=== PATIENT | male | born 1975 | race Caucasian/White ===

== ENCOUNTER 2018-08-04 11:25 | Emergency (ER) | payer BC, SELFPAY ==
[2018-08-04 11:26] VITALS: BP 148/86; PULSE 89; RESP 18; TEMP 36.6; O2SAT 98; BMI 42.7
--- NOTE | 2018-08-04 11:56 | CT_ITS ---
STUDY: CT ABDOMEN AND PELVIS WITHOUT CONTRAST REASON FOR EXAM: Male, 42 years old. Right flank pain x 5 days, fever, hematuria. Hx hypertension.. RADIATION DOSAGE (If Supplied By Facility): CTDIvol = ( 24.18 ) mGy, DLP = ( 1389.41 ) mGycm TECHNIQUE: Transaxial images were obtained from the dome of the diaphragm to the symphysis pubis without oral contrast, and without intravenous contrast. Sagittal and coronal images were reconstructed. Individualized dose optimization techniques were used for this CT. COMPARISON: None. FINDINGS: The visualized lung bases are unremarkable. The visualized portions of the heart are within normal limits. There is decreased attenuation of the liver consistent with steatosis. Normal gallbladder and extrahepatic biliary system. Normal spleen. Normal pancreas. Normal bilateral adrenal glands. The right kidney demonstrates the presence of 8 mm hypodensity at the superior pole (axial image #61 series 2) Normal left kidney. Normal visualized stomach. Normal small intestine. Normal colon. The appendix is visualized and appears normal. Normal abdominal aorta. Normal inferior vena cava. Normal retroperitoneum. Normal urinary bladder. Normal abdominal wall. There are diffuse degenerative changes of the visualized lumbar spine. CT/Abdomen/Pelvis without Cont IMPRESSION: No hydronephrosis or urolithiasis. 8 mm hyperdense right renal lesion. Further evaluation with MRI can be obtained. Electronically Signed: Sun Bird MD at 13:41 EST Tel , Service support ,
--- NOTE | 2018-08-04 11:57 | ED.DCSUM_ITS ---
- ER Visit Summary Date of Service: 08/04/18 Chief Complaint: [] Right flank pain for about 4 days History of Present Illness: The patient is a 42 M [] seen in urgent care for the above today, found to have hematuria, was sent to the emergency room, no trauma no difficulty with urinary or bowel habits no history of kidney stone no head neck chest or abdominal pain no other complaints Physical Examination: [] 140/90 General, no distress resting comfortably HEENT is generally unremarkable The neck is supple no adenopathy Cardiovascular, regular rate and rhythm Lungs, clear bilateral Abdomen, soft nontender he has a vague pain to the right CVA area the abdomen is [place]ley soft and nontender Extremities, no clubbing cyanosis or edema Neurologic, awake alert answering questions appropriately moving all 4 extremities Test Results: [] Emergency Department Course and Treatment: [] The above screening labs IV fluids CT, screening labs are all generally unremarkable, there is some microscopic hematuria on the UA, the CT scan shows an 8 mm hypodensity in the superior pole of the right kidney no obstruction no hydro-recommend MRI for further delineation Explained this finding to the family and the long differential which would certainly include a malignancy versus other causes and the need for close outpatient follow-up for the MRI, he is referred to his outpatient providers and also to [facility] he will return for change in symptoms Treatment Plan: [] Disposition: [] Home stable Impression: [] Right flank pain hematuria nonspecific 8 mm lesion superior pole right kidney see CTs report This note was generated with [employer] dictation software. It may contain incorrect words, spelling, and punctuation that were not noted in review of the chart prior to signing ED Disposition - Plan for ED Patient: Chief Complaint: Back Referrals: [facility] Doctor,Out of [NON-STAFF] -
[2018-08-04 12:01] LABS: Red Blood Cells-Urine 0 SEEN /hpf (0-5); Squamous Epithelial Cells - UA 0 SEEN /hpf (0-5); White Blood Cells 0 SEEN /hpf (0-5)
[2018-08-04] MEDS: Ketorolac 30 MG/ML Syringe IV (12:02)
[2018-08-04 12:03] LABS: Color, Urine Yellow (Yellow); Glucose, Dipstick Normal (Normal); Ketone-Dipstick Negative (Negative); Leukocyte Esterase-Dipstick Negative /ul (Negative); Nitrite-Dipstick Negative (Negative); Occult Blood-Urine 10 /ul (Negative); Protein-Dipstick Negative (Negative); Specific Gravity, Urine 1.025 (1.002-1.030); Urine Bilirubin Dipstick Negative (Negative); Urine Clarity Sl. Cloudy (Clear); Urine Urobilinogen Normal (Normal)
[2018-08-04] MEDS: 0.9% Normal Saline 1,000 ML 250 ML IV (12:03)
[2018-08-04 12:11] LABS: Bacteria RARE /hpf (None Seen); Mucous, Urine 1+ /hpf (<or=2+)
[2018-08-04 12:16] LABS: Absolute Neutrophil Count 3.3 X10^3/uL (2.0-7.7); Basophil# 0.04 X10^3/uL; Basophil% 0.6 % (0-1); Eosinophil# 0.22 X10^3/uL; Eosinophils% 3.5 % (0-5); Hematocrit 42.9 % (40-54); Hemoglobin 14.4 g/dl (13.0-16.5); Lymphocyte % 37.7 % (19-41); Mean Corp Hgb Conc 33.6 g/gl (32-36); Mean Corpuscular Hgb 28.7 pg (27.0-32.0); Mean Corpuscular Volume 85.5 fL (80-94); Mean Platelet Vol. 9.5 fl (6.2-12.0); Monocyte# 0.41 X10^3/uL; Monocyte% 6.4 % (0-10); Neutrophil # 3.28 X10^3/uL (2.7-7.7); Neutrophil % 51.6 % (47-70); Platelet Count 198 K/mm3 (150-450); RBC Distribution Width CV 12.7 % (11.6-14.6); RBC Distribution Width SD 39.6 fl (35.1-43.9); Red Blood Count 5.02 M/mm3 (4.6-6.2); White Blood Count 6.4 K/mm3 (4.4-11.0)
[2018-08-04 12:17] LABS: POSITIVE COUNT NO; POSITIVE DIFFERENTIAL NO; POSITIVE MORPHOLOGY NO
[2018-08-04 12:28] LABS: Anion Gap 8 (5-15); BUN 16 mg/dL (7-18); BUN/Creat Ratio 16.7 RATIO (10-20); Calcium,Total 8.7 mg/dL (8.5-10.1); Chloride 106 mmol/L (98-107); Creatinine, Serum 0.96 mg/dL (0.70-1.30); EST Glomerular Filtration Rate 91 mL/min (>60); Est Glom Filt Rate - Afr Amer 110 mL/min (>60); Estimated Creatinine Clearance 102.45 ml/min; Glucose 91 mg/dL (74-106); Potassium 3.8 mmol/L (3.5-5.1); Sodium Level 141 mmol/L (136-145)
[2018-08-04 13:25] VITALS: BP 122/73; PULSE 83; RESP 16; O2SAT 100
--- NOTE | 2018-08-04 14:27 | ED.DEP ---
ED Disposition - Plan for ED Patient: Chief Complaint: Back Instructions: ED Flank Pain Uncertain Cause Prescriptions: Hydrocodone Bitart/Apap 5-325 [[place] 5MG-325MG] 1 tab PO Q4H PRN PRN 2 Days #10 tab PRN Reason: Pain Naproxen [Naprosyn] 500 mg PO BID PRN #20 tab Referrals: [facility],Out of [NON-STAFF] - Severo Stanton MD [STAFF PHYSICIAN] - Additional Instructions: Follow-up with all of your outpatient providers and [facility] return for change in symptoms
[2018-08-04 14:40] VITALS: BP 122/73; PULSE 83; RESP 16; O2SAT 100
== END 2018-08-04 14:41 | disposition home or self-care (01) ==
LOC: ED 12:22
PROVIDERS: Emergency Provider Emergency Medicine; Family Provider Family Medicine; PCP Family Medicine
DX: R31.9 Hematuria, unspecified (principal); R10.9 Unspecified abdominal pain; N28.89 Other specified disorders of kidney and ureter; Z79.899 Other long term (current) drug therapy
CPT/HCPCS: 74176; 80048; 81001; 85025; 96361; 96374; 99283; J7030

== ENCOUNTER → 2019-01-25 | Outpatient (CLI) | payer BC, SELFPAY ==
--- NOTE | 2019-01-25 08:07 | US_ITS ---
STUDY: RENAL ULTRASOUND - COMPLETE REASON FOR EXAM: Male, 43 years old. Follow-up 8 mm hyperdense lesion at the upper pole of the right kidney on CT. History of right flank pain, fever, hematuria. TECHNIQUE: Ultrasound evaluation of the kidneys was performed with real-time and static luis-scale imaging. COMPARISON: None. FINDINGS: Incidental note of borderline to mild splenomegaly, measuring 13.4 cm in length. RIGHT KIDNEY: Normal location of the right kidney, which is normal in size. The right kidney measures 13.2 x 6.5 x 7.4 cm. There is a normal cortex of the right kidney. The renal cortex measures 2.6 cm. There is a 1.3 x 1.1 x 1.0 cm hypoechoic cortical cyst at the lateral upper pole, correlating in location with the hyperdense lesion seen on CT. A second 1.6 x 1.5 x 1.2 cm hypoechoic structure is seen at the superior margin of the renal sinus fat, possibly a second cyst. There are no right renal calculi. There is no right hydronephrosis. DISTAL RIGHT URETER: There is non-visualization of the distal right ureter. There is no demonstrated right ureterovesical junction calculus. There is a visualized right ureteral jet. LEFT KIDNEY: Normal location of the left kidney, which is normal in size. The left kidney measures 13.8 x 5.5 x 6.4 cm. There is a normal cortex of the left kidney. The renal cortex measures 2.3 cm. There is no left renal mass or cyst. There are no left renal calculi. There is no left hydronephrosis. DISTAL LEFT URETER: There is non-visualization of the distal left ureter. There is no demonstrated left ureterovesical junction calculus. There is a visualized left ureteral jet. BLADDER: The distended urinary bladder has a volume of 96 ml. There is a normal 3 mm wall thickness of the distended urinary bladder. There is no demonstrated mass within the urinary bladder. There are no demonstrated bladder calculi. US/Kidney and Bladder IMPRESSION: 1. 2 cysts seen in the upper pole of the right kidney, the smaller cortical cysts corresponding to the hyperdense lesion seen on CT. This likely contains some proteinaceous material or hemorrhage. No right hydronephrosis. 2. Normal ultrasound of the left kidney and urinary bladder. 3. Borderline to mild splenomegaly. Electronically Signed: Jayy Rodríguez MD at 13:51 EDT , Service support ,
== END | disposition home or self-care (01) ==
LOC: US 08:00
PROVIDERS: Family Provider Family Medicine; PCP Family Medicine; Referring Provider Urology; Visit Provider Urology
DX: C64.9 Malignant neoplasm of unspecified kidney, except renal pelvis (principal)
CPT/HCPCS: 76770

== ENCOUNTER 2019-03-07 04:52 | Emergency (ER) | payer BC, SELFPAY ==
[2019-03-07 04:53] VITALS: BP 145/94; PULSE 99; RESP 19; TEMP 36.8; O2SAT 95; BMI 43.4
--- NOTE | 2019-03-07 05:04 | RAD_ITS ---
STUDY: X-RAY - LEFT HAND REASON FOR EXAM: Male, 43 years old. Injured hand playing baseball on 03/06. Pain in the first metacarpal. TECHNIQUE: view(s) of the hand. COMPARISON: None. FINDINGS: Normal radiocarpal articulation. Normal distal radioulnar joint. Normal visualized carpal bones. Normal carpal articulations Normal carpometacarpal articulation of the thumb. Normal second through fifth carpometacarpal joints. There is an old healed fourth metacarpal shaft fracture. Normal metacarpophalangeal joint of the thumb. Normal interphalangeal joint of the thumb. Normal proximal and distal phalanges of the thumb. Normal metacarpophalangeal joints of the second through fifth fingers. There is degenerative arthrosis of the distal interphalangeal joints of the third and fifth finger. Otherwise normal proximal and distal interphalangeal joints of the second through fifth fingers. Normal phalanges of the second through fifth fingers. The soft tissue structures are unremarkable. RAD/Hand Min 3 Views IMPRESSION: Old healed fifth metacarpal fracture. Mild degenerative changes, as above. No demonstrated acute fracture, dislocation, or destructive osseous lesion. Electronically Signed: Abelardo Larios MD at 5:41 EDT , Service support ,
--- NOTE | 2019-03-07 05:06 | ED.VIS.GEN ---
History of Present Illness Chief Complaint: Upper Extremity Injury Informant: Patient Onset: Yesterday Narrative: [id number] male presents left hand injury yesterday while playing softball in the evening. States slid to second base, caught his feet came over landing on his left hand. Able to go to work, however left work came here for evaluation. No medication taken. States that left hand fracture nonsurgically repaired in the past. No history of gastric ulcers or kidney injury. No paresthesias. Wanted to rule out fracture. Prior similar symptoms: No Past Medical History - Allergies and Home Meds Allergies/Adverse Reactions: Allergies No Known Allergies Allergy (Verified 08/04/18 11:29) Primary Care Physician: Rayshawn Adhikari [Primary Care Provider] - Smoking Status: Never smoker Review of Systems All systems negative except as indicated Gastrointestinal: Denies: Nausea, Vomiting Musculoskeletal: Reports: Arthralgias Neurological: Denies: Parasthesia Physical Exam Vital Signs/Narrative: Vital Signs Temp Pulse Resp BP Pulse Ox 03/07/19 04:53 98.3 F 99 19 H 145/94 H 95 Inital Vital Signs reviewed: Yes General: Well nourished, Well developed, No Acute Distress Head: Normocephalic, Atraumatic Eyes: Perrl, EOMI ENT: Moist mucous membranes, No rhinorrhea Neck: Supple, Nontender Cardiovascular: Regular rate, Regular rhythm, No murmurs Respiratory: No distress, CTA bilaterally, Chest nontender Abdomen: Soft, Nontender, Nondistended, Normal bowel sounds Back: Nontender, Normal Inspection Extremities: No edema, - - Left upper extremity: No elbow or wrist pain. There is tender palpation base of palmar aspect of left hand small ecchymosis region. Negative varus and valgus of the thumb. Skin intact. Neurovascular intact. No deformities. Skin: Normal color, No rash Neurological: Alert, Oriented x3, Cranial nerves II-XII grossly intact, Normal Strength, Normal Sensation Psychological: Normal affect, Normal Mood Diagnostic/Tx/Re-eval Clinical Impression(s) from Imaging Studies Hand X-Ray 03/07/19 05:04 IMPRESSION: Old healed fifth metacarpal fracture. Mild degenerative changes, as above. No demonstrated acute fracture, dislocation, or destructive osseous lesion. Electronically Signed: Abelardo Larios MD at 5:41 EDT , Service support , - Medical Decision Making Patient declined any medications. Ice was placed. X-ray negative. Exam concerns for hand contusion. Wrist splint provided. He will use Tylenol Motrin as needed. Follow-up as an outpatient. ED Disposition - Plan for ED Patient: Disposition: Home or Assisted Living Diagnosis: Contusion of left hand Instructions: CONTUSION, Upper Extremity Referrals: Rayshawn Adhikari [Primary Care Provider] - 5-7 Days
[2019-03-07 06:24] VITALS: PULSE 79; RESP 19; O2SAT 98
== END 2019-03-07 06:25 | disposition home or self-care (01) ==
PROVIDERS: Emergency Provider Emergency Medicine; Family Provider Family Medicine; PCP Family Medicine
DX: S60.222A Contusion of left hand, initial encounter (principal); W18.30XA Fall on same level, unspecified, initial encounter; Y93.64 Activity, baseball; Y92.320 Baseball field as the place of occurrence of the external cause; Y99.8 Other external cause status
CPT/HCPCS: 73130; 99283

== ENCOUNTER → 2019-05-23 | Outpatient (CLI) | payer BC, SELFPAY ==
[2019-05-23 16:31] LABS: Anion Gap 10 (5-15); BUN 16 mg/dL (7-18); BUN/Creat Ratio 17.7 RATIO (10-20); Calcium,Total 8.8 mg/dL (8.5-10.1); Chloride 106 mmol/L (98-107); EST Glomerular Filtration Rate 97 mL/min (>60); Est Glom Filt Rate - Afr Amer 117 mL/min (>60); Glucose 95 mg/dL (74-106); Sodium Level 142 mmol/L (136-145)
== END | disposition home or self-care (01) ==
LOC: LAB 15:36
PROVIDERS: Family Provider Family Medicine; PCP Family Medicine; Referring Provider Orthopaedic Surgery; Visit Provider Orthopaedic Surgery
DX: I10 Essential (primary) hypertension (principal)
CPT/HCPCS: 36415; 80048

== ENCOUNTER → 2021-03-26 08:33 | Outpatient (CLI) | payer BC, SELFPAY ==
[2021-03-26 09:25] LABS: Absolute Lymphocyte Count 1.91 X10^3/uL (0.83-4.51); Absolute Neutrophil Count 3.5 X10^3/uL (2.0-7.7); Basophil# 0.05 X10^3/uL; Basophil% 0.8 % (0-1); Eosinophil# 0.27 X10^3/uL; Eosinophils% 4.3 % (0-5); Hematocrit 45.4 % (40-54); Hemoglobin 15.1 g/dL (13.0-16.5); Lymphocyte # 1.91 X10^3/ul (0.83-4.51); Lymphocyte % 30.7 % (19-41); Mean Corp Hgb Conc 33.3 g/dL (32-36); Mean Corpuscular Hgb 28.5 pg (27.0-32.0); Mean Corpuscular Volume 85.8 fL (80-94); Mean Platelet Vol. 10.1 fl (6.2-12.0); Monocyte# 0.44 X10^3/uL; Monocyte% 7.1 % (0-10); NRBC Flagged by Analyzer 0 % (0-5); Neutrophil # 3.53 X10^3/uL (2.7-7.7); Neutrophil % 56.8 % (47-70); Platelet Count 233 K/mm3 (150-450); RBC Distribution Width CV 12.4 % (11.6-14.6); RBC Distribution Width SD 38.7 fl (35.1-43.9); Red Blood Count 5.29 M/mm3 (4.6-6.2); White Blood Count 6.2 K/mm3 (4.4-11.0)
[2021-03-29 16:07] LABS: Ash, White <0.10 kU/L (Class 0); Aspergillus fumigatus <0.10 kU/L (Class 0); Bermuda Grass <0.10 kU/L (Class 0); Birch 1.09 kU/L (Class II); Black Walnut 0.22 kU/L (Class 0/I); Cat Hair / Dander,Stand 0.19 kU/L (Class 0/I); Cedar, Mountain <0.10 kU/L (Class 0); Cladosporium herbarum <0.10 kU/L (Class 0); Cockroach, American 0.11 kU/L (Class 0/I); Cottonwood <0.10 kU/L (Class 0); D farinae Mite <0.10 kU/L (Class 0); D pteronyssinus 0.11 kU/L (Class 0/I); Dog Epithelia 0.82 kU/L (Class II); Elm, American White <0.10 kU/L (Class 0); Immunoglobulin E 74 IU/mL (6-495); Maple/Box Elder 0.36 kU/L (Class I); Mulberry, White <0.10 kU/L (Class 0); Oak, White <0.10 kU/L (Class 0); Pecan <0.10 kU/L (Class 0); Penicillium Notatum <0.10 kU/L (Class 0); Pigweed, Rough <0.10 kU/L (Class 0); Russian Thistle <0.10 kU/L (Class 0); Sheep Sorrel <0.10 kU/L (Class 0); Sycamore, American <0.10 kU/L (Class 0); Timothy Grass 1.68 kU/L (Class III)
[2021-03-29 16:13] LABS: Mouse Urine <0.10 kU/L (Class 0)
[2021-03-30 20:07] LABS: Aspirgillus flavus Negative (Neg:<1:1); Aspirgillus fumigatus Negative (Neg:<1:1); Aspirgillus niger Negative (Neg:<1:1); Cytoplasmic Ab (C-ANCA) <1:20 titer (Neg:<1:20)
[2021-03-30 23:16] LABS: Immunoglobulin E 80 IU/mL (6-495); Perinuclear Ab (P-ANCA) <1:20 titer (Neg:<1:20)
== END ==
PROVIDERS: PCP Family Medicine; Referring Provider Internal Medicine Critical Care Medicine; Visit Provider Internal Medicine Critical Care Medicine
DX: J40 Bronchitis, not specified as acute or chronic (principal)
CPT/HCPCS: 36415; 82785; 85025; 86003; 86256; 86606

== ENCOUNTER → 2021-04-02 06:58 | Outpatient (CLI) | payer BC, SELFPAY ==
--- NOTE | 2021-04-03 10:14 | PFT ---
INTRODUCTION: The patient is a 45-year-old male that presents for pulmonary function studies secondary to a diagnosis of bronchitis. Respiratory therapy reported good patient effort. Bronchodilators were used during testing. INTERPRETATION: Forced expiration spirometry demonstrates no evidence of a large airways obstructive ventilatory defect. There was a significant response to aerosolized bronchodilators noted. Spirograms are of good quality and plateau normally. Body plethysmography was performed and reveals a decreased TLC to 5.46 L, 82% of predicted, indicative of a mild restrictive ventilatory impairment. Diffusing capacity by single breath CO is within normal limits. IMPRESSION: Mild restrictive ventilatory impairment along with stigmata of small airway disease and significant bronchodilator response.
== END ==
PROVIDERS: PCP Family Medicine; Referring Provider Internal Medicine Critical Care Medicine; Visit Provider Internal Medicine Critical Care Medicine
DX: J40 Bronchitis, not specified as acute or chronic (principal)
CPT/HCPCS: 94060; 94726; 94729

== ENCOUNTER 2021-05-05 03:55 | Emergency (ER) | payer BC, SELFPAY ==
[2021-05-05 03:56] VITALS: PULSE 119; RESP 26; TEMP 37.4; O2SAT 94; BMI 43.4
[2021-05-05 04:00] VITALS: BP 150/76; PULSE 119; RESP 26; TEMP 37.4; O2SAT 92; O2SAT 94
--- NOTE | 2021-05-05 04:13 | CT_ITS ---
STUDY: CTA CHEST REASON FOR EXAM: Male, 45 years old. hypoxia. Covid, shortness of breath since Monday, fever, chills, cough, history of hypertension RADIATION DOSAGE (If Supplied By Facility): CTDIvol = ( 24.54 ) mGy, DLP = ( 604.76 ) mGycm TECHNIQUE: The examination was performed with the intravenous administration of IV 100mL Isovue-370. Post-processing of the angiographic images was performed, with multiplanar reformation and 3D reconstruction. There is image blurring as a result of cardiac and respiratory motion. Diagnostic accuracy is somewhat reduced. However, there is substantial diagnostic information remaining available on this study. Individualized dose optimization techniques were used for this CT. COMPARISON: CT abdomen pelvis 08/04/2018 FINDINGS: Normal enhancement of the main pulmonary artery and central right and left pulmonary arteries. Very limited enhancement of the bilateral peripheral pulmonary arteries particularly in the right greater than left lung bases. Normal thoracic aorta and visualized great vessels. There is a bovine arch as a vascular variant. There is no demonstrated aortic dissection. Normal heart and pericardium. Normal mediastinum. Normal hilar regions. Normal visualized trachea and bronchi. The lungs are well expanded. Compression of the dependent lung parenchyma. Mild hazy airspace opacification in the bilateral lower lobes right greater than left significantly exaggerated by motion. Component of mild atelectasis in the lingula suspected. Normal pleura. Normal chest wall structures. There are degenerative changes of thoracic spine and mild dextroscoliosis. Bilateral perirenal stranding possible trace fluid along the imaged upper poles. Incompletely imaged spleen appears enlarged measuring greater than [address]/CTA Chest W/WO Contrast IMPRESSION: No demonstrated central and proximal pulmonary embolism mi aneurysm, leak or arterial dissection. The peripheral pulmonary arterial assessment particularly in the right base is extremely limited. Motion degradation through the lung bases with cardiac activity and compression of parenchyma right greater than left base may obscure infectious or inflammatory process such as an infiltrate. Bilateral perirenal stranding possible trace fluid, seen to similar degree on previous CT. Mild splenomegaly. Electronically Signed: Conchita Lange MD at 5:39 EDT , Service support ,
--- NOTE | 2021-05-05 04:13 | EKG12_ITS ---
Test Reason : DYSRHYTHMIA Blood Pressure : / mmHG Vent. Rate : 114 BPM Atrial Rate : 114 BPM P-R Int : 132 ms QRS Dur : 100 ms QT Int : 340 ms P-R-T Axes : 031 022 084 degrees QTc Int : 468 ms Sinus tachycardia Otherwise normal ECG Confirmed by CELESTINO DC, MAXIMO ([id number]), commercial production editor MATTHIEU CERDA ([id number]) on 05/11/2021 6:29:39 AM Referred By: ROBERT Confirmed By:MAXIMO TIRADO MD
--- NOTE | 2021-05-05 04:15 | EX.ED.DYSGE1 ---
HPI History of Present Illness Chief Complaint: Shortness of Breath Narrative Narrative: Patient is a 45-year-old male who presents with complaints of subjective fevers and chills with congestion cough fatigue and shortness of breath. He states he is had the symptoms for approximately 6 to 7 days. He reports he went to an outpatient facility and was tested and is positive for COVID. He reports that as time is past his sensation of shortness of breath is worsened to the point where he cannot walk without feeling extreme shortness of breath. He also reports he is notice persistent chest discomfort associated with this. He states that his symptoms are worsening he is concerned that he will need oxygen and therefore comes in for evaluation [facility] Medical History Carpal tunnel syndrome Fatty liver Hypertension CARMEL (obstructive sleep apnea) Home Medications lisinopril 40 mg PO DAILY 08/04/18 [History Last Taken Unknown] loratadine-pseudoephedrine 1 ea PO DAILY 03/07/19 [History Last Taken Unknown] fluticasone propionate 50 mcg/actuation nasal spray,suspension 1 spray INTRANASAL DAILY 03/19/21 [History Last Taken Unknown] meloxicam 15 mg tablet 15 mg PO DAILY 03/19/21 [History Last Taken Unknown] albuterol sulfate [Ventolin HFA] 2 puff INHALATION Q4H PRN PRN 05/05/21 [History Last Taken Unknown] dexamethasone [Decadron] 6 mg PO DAILY #10 tab 05/05/21 [Rx Last Taken Unknown] promethazine-codeine 5 ml PO Q6H PRN 7 Days #140 ml 05/05/21 [Rx Last Taken Unknown] Allergy/AdvReac Type Severity Reaction Status Date / Time No Known Allergies Allergy Verified 03/26/21 07:48 Surgical History (Updated 05/05/21 @ 04:01 by Lianna Stern) H/O rhinoplasty Social History Smoking Status: Never smoker ROS ROS ED Constitutional Constitutional ED: Reports fever(s) and subjective; Denies chills ENT ENT ED: Reports rhinorrhea and sore throat Cardiovascular Cardiovascular: Reports chest pain Respiratory/Chest Respiratory/Chest: Reports cough and dyspnea Gastrointestinal Gastrointestinal: Denies abdominal pain, diarrhea, nausea or vomiting Genitourinary Genitourinary ED: Denies dysuria Musculoskeletal Musculoskeletal: Reports myalgias Integumentary Denies rash Neurologic Neurologic: Denies headache(s) Hematologic/Lymphatic Hematologic/Lymphatic: Denies easy bleeding or easy bruising EXAM Physical Exam Const Vital Signs: 05/05/21 03:56 05/05/21 04:00 Temperature 99.3 F H 99.3 F H Temperature Source Temporal Temporal Pulse Rate 119 H 119 H Respiratory Rate 26 H 26 H Respiratory Effort Short of Breath Respiratory Depth Shallow Respiratory Pattern Tachypnea Blood Pressure 150/76 H Blood Pressure Mean 100 Pulse Ox 94 94 Oxygen Delivery Method Room Air Room Air Positive well nourished and well developed General Appearance ED: well developed HEENT Reports moist mucous membranes HEENT Narrative: [place] in the posterior pharynx consistent with sinus drainage but no airway edema or compromise. Eyes PERRL and EOMs intact bilaterally Neck supple and no JVD Neck Narrative: Positive anterior cervical lymphadenopathy Resp Resp Narrative: Patient is in mild to moderate respiratory distress with tachypnea and accessory muscle use. Breath sounds are diminished throughout with rhonchi in the bilateral basis greatest on the right. Cardio regular rhythm Rate: other Other Details: Tachycardic rate with regular rhythm. Radial pulses are +2/4 bilaterally there equal and symmetric GI normal to inspection, nondistended, normoactive bowel sounds, non-tender and non-distended Auscultation: normoactive bowel sounds Palpation: soft Extremity normal to inspection Extremity Narrative: No asymmetric edema. There is trace pitting edema to the bilateral lower extremities but negative home and sign. Neuro oriented x3 and CN's II-XII intact bilaterally Sensorium / Orientation: alert Psych mental status grossly normal Skin no rashes or lesions noted MDM MDM MDM Narrative Medical decision making narrative: Patient presented to the ER afebrile but was tachycardic and hypoxic down to 87% on room air at rest. With his known COVID diagnosis and hypoxia as well as tachycardia there is concern for COVID pneumonia or pulmonary embolus as a cause of his worsening symptoms. Therefore basic laboratory workup along with CTA were ordered. Labs revealed no clinically significant findings and CTA show changes consistent with mild COVID pneumonia but no PE. The patient was able to set between 92 and 94% on 3 L nasal cannula oxygen. Therefore this time I feel he would be a good candidate for home oxygen. Therefore this will be set up for him he'll be placed on Decadron as well as given albuterol inhaler and Phenergan with codeine for symptom control. However at this time as the only reason for admission would be need for oxygen and he can get this set up there is no need for placement and he is safe for discharge Lab Data Attestation: I reviewed the patient's lab results. Labs: Laboratory Results - last 24 hr 05/05/21 05/05/21 05/05/21 04:25 04:25 04:25 WBC 4.1 L RBC 4.99 Hgb 14.3 Hct 42.5 MCV 85.2 MCH 28.7 MCHC 33.6 RDW Std Deviation 39.6 RDW Coeff of Gamal 12.8 Plt Count 160 MPV 9.8 Immature Gran % (Auto) 0.200 Neut % (Auto) 72.2 H Lymph % (Auto) 15.3 L Anderson % (Auto) 10.4 H Eos % (Auto) 1.7 Baso % (Auto) 0.2 Absolute Neuts (auto) 2.9 Absolute Lymphs (auto) 0.62 L Nucleated RBC % 0 PT 13.0 INR 1.0 APTT 30.3 Sodium 140 Potassium 4.1 Chloride 106 Carbon Dioxide 27.0 Anion Gap 7 BUN 18 Creatinine 1.03 Estim Creat Clear Calc 89.61 Est GFR (MDRD) Af Amer 100 Est GFR (MDRD) Non-Af 83 BUN/Creatinine Ratio 17.5 Glucose 125 H Calcium 8.5 Magnesium 1.8 Troponin I High Sens 34 Radiography Diagnostic Testing: Clinical Impression(s) from Imaging Studies Chest CTA 05/05/21 04:13 IMPRESSION: No demonstrated central and proximal pulmonary embolism mi aneurysm, leak or arterial dissection. The peripheral pulmonary arterial assessment particularly in the right base is extremely limited. Motion degradation through the lung bases with cardiac activity and compression of parenchyma right greater than left base may obscure infectious or inflammatory process such as an infiltrate. Bilateral perirenal stranding possible trace fluid, seen to similar degree on previous CT. Mild splenomegaly. Electronically Signed: Conchita Lange MD at 5:39 EDT , Service support , Discharge Plan Triage Chief Complaint: Shortness of Breath ED Provider: Aureliano Samayoa Dx/Rx/DC Orders Clinical Impression: Pneumonia due to 2019 novel coronavirus Instructions: Coronavirus Disease 2019 (COVID-19): Caring for Yourself or Others Prescriptions: New dexamethasone [Decadron] 6 mg tablet 6 mg PO DAILY Qty: 10 RF: 0 promethazine-codeine 6.25-10 mg/5 mL syrup 5 ml PO Q6H PRN (Reason: cough) 7 Days Qty: 140 RF: 0 No Action meloxicam 15 mg tablet 15 mg PO DAILY RF: 0 fluticasone propionate [Flonase Allergy Relief] 50 mcg/actuation spray,suspension 1 spray intranasal DAILY RF: 0 lisinopril 40 MG tablet 40 mg PO DAILY RF: 0 loratadine-pseudoephedrine 1 EACH tablet extended release 12 hr 1 ea PO DAILY RF: 0 albuterol sulfate [Ventolin HFA] 90 mcg/actuation HFA aerosol inhaler 2 puff INHALATION Q4H PRN PRN (Reason: SOB/WHEEZING) RF: 0 Primary Care Provider: Rayshawn Adhikari Referrals: Rayshawn Adhikari MD [Primary Care Provider] - Disposition Disposition: Home, Self Care
[2021-05-05] MEDS: dexAMETHasone 10 MG/ML Vial IV (04:26)
[2021-05-05] MEDS: 0.9% Normal Saline 1,000 ML 999 ML IV (04:26)
[2021-05-05 04:37] LABS: Absolute Lymphocyte Count 0.62 X10^3/uL (0.83-4.51); Absolute Neutrophil Count 2.9 X10^3/uL (2.0-7.7); Basophil# 0.01 X10^3/uL; Basophil% 0.2 % (0-1); Eosinophil# 0.07 X10^3/uL; Eosinophils% 1.7 % (0-5); Hematocrit 42.5 % (40-54); Hemoglobin 14.3 g/dL (13.0-16.5); Lymphocyte # 0.62 X10^3/ul (0.83-4.51); Lymphocyte % 15.3 % (19-41); Mean Corp Hgb Conc 33.6 g/dL (32-36); Mean Corpuscular Hgb 28.7 pg (27.0-32.0); Mean Corpuscular Volume 85.2 fL (80-94); Mean Platelet Vol. 9.8 fl (6.2-12.0); Monocyte# 0.42 X10^3/uL; Monocyte% 10.4 % (0-10); NRBC Flagged by Analyzer 0 % (0-5); Neutrophil # 2.92 X10^3/uL (2.7-7.7); Neutrophil % 72.2 % (47-70); Platelet Count 160 K/mm3 (150-450); RBC Distribution Width CV 12.8 % (11.6-14.6); RBC Distribution Width SD 39.6 fl (35.1-43.9); Red Blood Count 4.99 M/mm3 (4.6-6.2); White Blood Count 4.1 K/mm3 (4.4-11.0)
[2021-05-05 04:55] LABS: Partial Thromboplast Time 30.3 Seconds (24.1-36.2)
[2021-05-05 04:58] LABS: Anion Gap 7 (5-15); BUN 18 mg/dL (7-18); BUN/Creat Ratio 17.5 RATIO (10-20); Calcium,Total 8.5 mg/dL (8.5-10.1); Chloride 106 mmol/L (98-107); Creatinine, Serum 1.03 mg/dL (0.70-1.30); EST Glomerular Filtration Rate 83 mL/min (>60); Est Glom Filt Rate - Afr Amer 100 mL/min (>60); Estimated Creatinine Clearance 89.61 ml/min; Glucose 125 mg/dL (74-106); Magnesium 1.8 mg/dL (1.6-2.6); Potassium 4.1 mmol/L (3.5-5.1); Sodium Level 140 mmol/L (136-145); Troponin-I HS 34 pg/mL (3.0-78.0)
[2021-05-05 05:30] VITALS: O2SAT 87
[2021-05-05 08:51] VITALS: PULSE 85; RESP 20; O2SAT 94
== END 2021-05-05 08:52 | disposition home or self-care (01) ==
PROVIDERS: Emergency Provider Emergency Medicine; PCP Family Medicine
DX: U07.1 COVID-19 (principal); J12.82 Pneumonia due to coronavirus disease 2019; I10 Essential (primary) hypertension; G47.33 Obstructive sleep apnea (adult) (pediatric); Z79.899 Other long term (current) drug therapy
CPT/HCPCS: 71275; 80048; 83735; 84484; 85025; 85610; 85730; 93005; 96374; 99251; 99283; J7030; Q9967; A4216; G0463

== ENCOUNTER 2021-05-16 00:01 | Inpatient (IN) | payer BC, SELFPAY ==
[2021-05-16] VITALS (19 sets, daily range): BP systolic 120–135; BP diastolic 48–84; PULSE 76–125; RESP 12–26; TEMP 36.4–38.4; O2SAT 88–95; BMI 43.2; BMI 41.8
--- NOTE | 2021-05-16 00:28 | CT_ITS ---
STUDY: CTA CHEST REASON FOR EXAM: Male, 45 years old. Worsening dyspnea, covid positive RADIATION DOSAGE (If Supplied By Facility): CTDIvol = ( 13.85 ) mGy, DLP = ( 540.65 ) mGycm TECHNIQUE: The examination was performed with the intravenous administration of IV 100mL Isovue-370. Post-processing of the angiographic images was performed, with multiplanar reformation and 3D reconstruction. Individualized dose optimization techniques were used for this CT. COMPARISON: None. FINDINGS: Normal enhancement of the main pulmonary artery and right and left pulmonary arteries. Normal enhancement of the bilateral peripheral pulmonary arteries. There is no demonstrated pulmonary embolism. Normal thoracic aorta and visualized great vessels. There is no demonstrated aortic dissection. Normal heart and pericardium. Normal mediastinum. Normal hilar regions. Normal visualized trachea and bronchi. The lungs are well expanded. Bilateral lower more than upper lung groundglass and confluent densities. Normal pleura. Normal chest wall structures. Thoracolumbar vertebral alignment is maintained. Normal visualized upper abdomen. CT/CTA Chest W/WO Contrast IMPRESSION: Extensive multifocal pneumonia in both lungs. Normal CTA chest examination, without a demonstrated pulmonary embolism or arterial dissection. Electronically Signed: Blayne Mckeon MD at 2:33 EDT Tel , Service support ,
--- NOTE | 2021-05-16 00:29 | ED.VIS.DYS ---
HPI History of Present Illness Chief Complaint: Shortness of Breath Informant: patient and spouse/S.O. Narrative Narrative: Patient Covid positive past 16 days was seen 11 days ago in the ED home on oxygen initial 2 L at increased to 4 L over the past week. Today sudden worsening dyspnea and racing heart with increasing nonproductive cough. Fever today 101. States diagnosed that now clinic day 1 of symptoms with headache and fevers. He has lost taste and smell. There has been no vomiting or diarrhea. He was nonvaccinated. He finished a 10-day course of steroids last dose yesterday. No COPD or tobacco history. No asthma history. However states he gets bronchitis yearly and did have pulmonary function test results unknown due to his Covid diagnosis. He is on blood pressure medicines. History of sleep apnea. He is not vaccinated. This is his first infection. He states had a CT chest on the that was negative for blood clots or pneumonia. Review of records did confirm this only reporting haziness lower lobes likely secondary to motion.. He states today racing heart that is new. No chest pains. [facility] Medical History (Updated 05/16/21 @ 03:[address] Leodan Machado DO) Carpal tunnel syndrome Fatty liver Hypertension CARMEL (obstructive sleep apnea) Home Medications lisinopril 40 mg PO DAILY 08/04/18 [History Last Taken Unknown] loratadine-pseudoephedrine [Allergy Relief D12] 1 ea PO DAILY 03/07/19 [History Last Taken Unknown] fluticasone propionate 50 mcg/actuation nasal spray,suspension 1 spray INTRANASAL DAILY 03/19/21 [History Last Taken Unknown] albuterol sulfate [Ventolin HFA] 2 puff INHALATION Q4H PRN PRN 05/05/21 [History Last Taken Unknown] Allergy/AdvReac Type Severity Reaction Status Date / Time No Known Allergies Allergy Verified 05/16/21 00:01 Family History (Updated 05/16/21 @ 02:[address] Cristy Archuleta MD) Mother Heart disease Hypertension Kidney disease Father Heart disease Hypertension Kidney disease Surgical History (Updated 05/16/21 @ 02:[address] Cristy Archuleta MD) H/O rhinoplasty S/p bilateral carpal tunnel release Social History (Updated 05/16/21 @ 02:[address] Cristy Archuleta MD) household members: spouse Smoking Status: Never smoker alcohol intake: never substance use type: does not use ROS ROS ED Constitutional Constitutional ED: Reports fever(s); Denies chills or sweats Eyes Eyes: Denies change in vision ENT ENT ED: Denies dysphagia or sore throat Cardiovascular Cardiovascular: Reports racing heartbeat; Denies chest pain, leg edema or palpitations Respiratory/Chest Respiratory/Chest: Reports cough and dyspnea; Denies dyspnea on exertion Gastrointestinal Gastrointestinal: Denies abdominal pain, diarrhea, nausea or vomiting Genitourinary Genitourinary ED: Denies dysuria, hematuria or urinary frequency Musculoskeletal Musculoskeletal: Denies back pain, extremity pain or neck pain Integumentary Denies rash or wounds Neurologic Neurologic: Denies headache(s), paresthesias or weakness EXAM Physical Exam Const Vital Signs: 05/16/21 00:02 05/16/21 00:21 05/16/21 01:06 Temperature 98.2 F 98.8 F 98.9 F Temperature Source Temporal Temporal Temporal Pulse Rate 125 H 112 H 114 H Respiratory Rate 26 H 21 H 20 H Blood Pressure 134/67 H 123/84 H 122/48 H Blood Pressure Mean 89 97 72 Pulse Ox 92 91 92 Oxygen Delivery Method Nasal Cannula Nasal Cannula Nasal Cannula Oxygen Flow Rate (L/min) 4 4 4 05/16/21 02:00 Temperature 99.7 F H Temperature Source Temporal Pulse Rate 112 H Respiratory Rate 23 H Blood Pressure 131/76 H Blood Pressure Mean 94 Pulse Ox 95 Oxygen Delivery Method Nasal Cannula Oxygen Flow Rate (L/min) 4 4 L nasal cannula, no respiratory distress. Positive well nourished and well developed General Appearance ED: well developed and NAD HEENT Reports moist mucous membranes normocephalic and atraumatic Eyes PERRL, EOMs intact bilaterally and conjunctivae normal General Eye ED: Yes normal appearance of both eyes Neck no lymphadenopathy and supple General: Negative for tenderness Chest Wall Chest: Negative for tenderness Resp normal respiratory effort and normal air movement Effort and Inspection: symmetric chest movement; Negative for respiratory distress Cardio regular rhythm and no murmurs Rate: tachycardic Peripheral Pulses: pulses 2+ throughout GI normal to inspection, nondistended, normoactive bowel sounds and non-tender Palpation: Negative for guarding or rebound tenderness present Back/Spine no CVA tenderness and no thoracic nor lumbar tenderness Extremity normal to inspection General Extremety ED: Negative for edema or tenderness General Extremity: Negative for edema Neuro oriented x3 and no sensory deficits noted Sensorium / Orientation: awake and alert Skin no rashes or lesions noted and no wounds MDM MDM MDM Narrative Medical decision making narrative: EKG sinus tachycardia. Patient new symptoms tachycardia increasing respiratory distress reported fever today on day 16 of symptoms. He has increase his oxygen to 4 L over the past week with increasing clinical symptoms today with addition of tachycardia. On 4 L he is in the low 90s for which he states has been fluctuating from the 80s to low 90s at home. Discussed the possibility of complications from his Covid with PE. He is high risk for this. Discussed obtaining repeat CTA to rule this out. Labs. Obtain noted white count increased to 12.6 from a normal level on the . Troponin negative. Review of wet read by myself noted multifocal pneumonia changes new from his CT from 8 days ago. No clear PE noted. Pending final CT a chest read at this time. Patient is a 16 concerns for inflammatory surge and potential secondary infection causing his worsening symptoms. I did add blood cultures lactic acid will cover for bacterial pneumonia with Rocephin and Zithromax. We will plan to discuss with hospitalist for admission. 0235: Results negative for PE. Extensive multifocal pneumonia changes. I discussed with hospitalist Dr. Archuleta for admission. Patient spouse comes reported that had a pulmonary function test on the eighth with unknown results and was not given this results. Reviewed noted mild restrictive disease responding to bronchodilators. This was relayed to them. Patient admitted to the hospital for further management. Lab Data Attestation: I reviewed the patient's lab results. Labs: Laboratory Results - last 24 hr 05/16/21 05/16/21 05/16/21 01:08 01:08 02:15 WBC 12.6 H RBC 4.54 L Hgb 13.2 Hct 39.1 L MCV 86.1 MCH 29.1 MCHC 33.8 RDW Std Deviation 40.0 RDW Coeff of Gamal 12.8 Plt Count 351 MPV 8.8 Immature Gran % (Auto) 2.500 H Neut % (Auto) 75.7 H Lymph % (Auto) 14.1 L [place] % (Auto) 6.4 Eos % (Auto) 1.0 Baso % (Auto) 0.3 Absolute Neuts (auto) 9.5 H Absolute Lymphs (auto) 1.77 Nucleated RBC % 0 Sodium 143 Potassium 3.5 Chloride 110 H Carbon Dioxide 25.0 Anion Gap 8 BUN 25 H Creatinine 0.96 Estim Creat Clear Calc 96.15 Est GFR (MDRD) Af Amer 109 Est GFR (MDRD) Non-Af 90 BUN/Creatinine Ratio 26.1 H Glucose 140 H Lactic Acid 1.2 Calcium 8.1 L Troponin I High Sens 22 Radiography Diagnostic Testing: Clinical Impression(s) from Imaging Studies Chest CTA 05/16/21 00:28 IMPRESSION: Extensive multifocal pneumonia in both lungs. Normal CTA chest examination, without a demonstrated pulmonary embolism or arterial dissection. Electronically Signed: Blayne Mckeon MD at 2:33 EDT Tel , Service support , EKG Initial EKG: Attestation: I personally reviewed and interpreted this EKG as follows: Comments: Sinus rate of 112, no ST changes, T wave inversion on aVL. Nonspecific. Similar EKG from 11 days ago. Critical Care Time Critical Care Time: Yes Critical care time (excluding procedures): 30-74 minutes, Discussing w/Patient &/or Family/Belting Cutter, Arranging Admission or Transfer, Performing Direct Patient Care at Bedside and - (40 minutes) Discharge Plan Triage Chief Complaint: Shortness of Breath ED Provider: Leodan Machado Dx/Rx/DC Orders Clinical Impression: Pneumonia, Hypoxia, COVID-19 virus infection, Tachycardia, Sepsis Primary Care Provider: Rayshawn Adhikari
[2021-05-16 01:13] LABS: Absolute Lymphocyte Count 1.77 X10^3/uL (0.83-4.51); Absolute Neutrophil Count 9.5 X10^3/uL (2.0-7.7); Basophil# 0.04 X10^3/uL; Basophil% 0.3 % (0-1); Eosinophil# 0.12 X10^3/uL; Hematocrit 39.1 % (40-54); Hemoglobin 13.2 g/dL (13.0-16.5); Lymphocyte # 1.77 X10^3/ul (0.83-4.51); Lymphocyte % 14.1 % (19-41); Mean Corp Hgb Conc 33.8 g/dL (32-36); Mean Corpuscular Hgb 29.1 pg (27.0-32.0); Mean Corpuscular Volume 86.1 fL (80-94); Mean Platelet Vol. 8.8 fl (6.2-12.0); Monocyte% 6.4 % (0-10); NRBC Flagged by Analyzer 0 % (0-5); Neutrophil # 9.52 X10^3/uL (2.7-7.7); Neutrophil % 75.7 % (47-70); Platelet Count 351 K/mm3 (150-450); RBC Distribution Width CV 12.8 % (11.6-14.6); Red Blood Count 4.54 M/mm3 (4.6-6.2); White Blood Count 12.6 K/mm3 (4.4-11.0)
[2021-05-16 01:32] LABS: Anion Gap 8 (5-15); BUN 25 mg/dL (7-18); BUN/Creat Ratio 26.1 RATIO (10-20); Calcium,Total 8.1 mg/dL (8.5-10.1); Chloride 110 mmol/L (98-107); Creatinine, Serum 0.96 mg/dL (0.70-1.30); EST Glomerular Filtration Rate 90 mL/min (>60); Est Glom Filt Rate - Afr Amer 109 mL/min (>60); Estimated Creatinine Clearance 96.15 ml/min; Glucose 140 mg/dL (74-106); Potassium 3.5 mmol/L (3.5-5.1); Sodium Level 143 mmol/L (136-145); Troponin-I HS 22 pg/mL (3.0-78.0)
--- NOTE | 2021-05-16 02:26 | PCM.HP.STD ---
HPI - General General Date of Admission: 05/16/21 Date of Service: 05/16/21 Chief Complaint: Dyspnea, cough, worsening hypoxia, tachycardia, COVID + HPI Narrative The patient is a 45 y/o M w/ PMHx: Morbid Obesity, CARMEL, HTN, Asthma w/ frequent Bronchitis with Allergic Rhinitis who presents to the [facility] ED on 05/16/21 with history of Covid symptoms ongoing x16 days initially seen 11 days prior in the ED with diagnosis of COVID at that time with initiation on 2 L nasal cannula however patient notes for the last week is worsened with increasing nonproductive cough, worsening dyspnea and tachycardia as well as fevers, decreased sense of taste of smell, headache prompting repeat evaluation. Patient did complete a 10-day course of Decadron therapy. Patient of note did have initial CT on 05/05/21 that did not have any evidence of pulmonary emboli at that time. Patient is unvaccinated against COVID-19. His of note did have symptoms for approximately 4 days but completely resolved following. She also notes that her symptoms were mild. Work-up in the ED included T 98.2, heart rate 125, BP 134/67, respiratory rate 26, 92% on 4 L nasal cannula, CBC with WBC 12.6, hemoglobin 13.2, platelets 351 with left shift, BMP with chloride 110, BUN/creatinine 25/0.96, glucose 140, high-sensitivity cardiac troponin 22, CTPA with extensive multifocal pneumonia bilaterally with no evidence of PE or dissection, blood culture x2 pending per ED. In the ED patient ministered normal saline bolus, azithromycin and Rocephin. [facility] Medical History (Updated 05/16/21 @ 02:[address] Cristy Archuleta MD) Carpal tunnel syndrome Fatty liver Hypertension CARMEL (obstructive sleep apnea) Home Medications lisinopril 40 mg PO DAILY 08/04/18 [History Last Taken Unknown] loratadine-pseudoephedrine [Allergy Relief D12] 1 ea PO DAILY 03/07/19 [History Last Taken Unknown] fluticasone propionate 50 mcg/actuation nasal spray,suspension 1 spray INTRANASAL DAILY 03/19/21 [History Last Taken Unknown] albuterol sulfate [Ventolin HFA] 2 puff INHALATION Q4H PRN PRN 05/05/21 [History Last Taken Unknown] Allergy/AdvReac Type Severity Reaction Status Date / Time No Known Allergies Allergy Verified 05/16/21 00:01 Family History (Updated 05/16/21 @ 02:[address] Cristy Archuleta MD) Mother Heart disease Hypertension Kidney disease Father Heart disease Hypertension Kidney disease Surgical History (Updated 05/16/21 @ 02:[address] Cristy Archuleta MD) H/O rhinoplasty S/p bilateral carpal tunnel release Social History (Updated 05/16/21 @ 02:[address] Cristy Archuleta MD) household members: spouse Smoking Status: Never smoker alcohol intake: never substance use type: does not use ROS ROS Narrative Admission Review of Systems: CONSTITUTIONAL: No weight loss, + fever, chills, weakness or fatigue. HEENT: + Headache, sore throat. Eyes: No visual loss, blurred vision, double vision or yellow sclerae. Ears, Nose, Throat: No hearing loss, sneezing. SKIN: No rash or itching, lesions, wounds. CARDIOVASCULAR: No chest pain, chest pressure or chest discomfort, palpitations, edema, orthopnea, syncopal events. RESPIRATORY: + shortness of breath, cough without marked sputum, No wheezing, hemoptysis. GASTROINTESTINAL: + anorexia, No nausea, vomiting or diarrhea, abdominal pain, melena, BRBPR. GENITOURINARY: No dysuria, frequency, urgency or retention. NEUROLOGICAL: + Headache, No syncope, paralysis, ataxia, numbness or tingling in the extremities, focal weakness, change in bowel or bladder control, seizure. MUSCULOSKELETAL: + muscle, back pain, joint pain or stiffness. HEMATOLOGIC: No anemia, bleeding or bruising. LYMPHATICS: No enlarged nodes. No history of splenectomy. PSYCHIATRIC: No history of depression or anxiety. ENDOCRINOLOGIC: No reports of sweating, cold or heat intolerance. No polyuria or polydipsia. ALLERGIES: + history of asthma, hives, eczema or rhinitis. Vital Signs Vital Signs Vital Signs: 05/16/21 00:02 05/16/21 00:21 05/16/21 01:06 Temperature 98.2 F 98.8 F 98.9 F Temperature Source Temporal Temporal Temporal Pulse Rate 125 H 112 H 114 H Respiratory Rate 26 H 21 H 20 H Blood Pressure 134/67 H 123/84 H 122/48 H Blood Pressure Mean 89 97 72 Pulse Ox 92 91 92 Oxygen Delivery Method Nasal Cannula Nasal Cannula Nasal Cannula Oxygen Flow Rate (L/min) 4 4 4 Weight Weight: 293 lb Body Mass Index (BMI) 43.2 Physical Exam Narrative Physical Examination: General: Awake, alert, oriented x 3 and cooperative, seated upright in the ED bed, fatigued and ill-appearing, anxious. Skin: Normal color, normal turgor, no icterus, no cyanosis. HEENT: AT/NC, EOMI, PERRLA, dry MM, no carotid bruits or JVD noted. Lungs: Diminished, greater bases, increased respiratory rate, no rales, ronchi or wheezing. Heart: Tachycardic with regular rhythm; no gallop, rub audible. Abdomen: Soft, morbidly obese, NTTP, ND, distant normal BS, no obvious evidence of HSM. Extremities: No cyanosis, clubbing, or edema. Neurological: Patient awake, alert, oriented as noted, cognitive function intact; pupils equally reactive to light and accommodation, cranial nerves II-XII grossly normal, moving all 4 extremities, no focal deficits, strength severely global decrease secondary to acute presentation. Psychiatric: Affect appears fatigued, ill-appearing, very anxious and during discussions did appear to have near panic attack but calmed, tearful with discussions, no history of anxiety or depression from discussion with patient and spouse. Results Lab / Micro Data Result Diagrams: 05/16/21 01:08 05/16/21 01:08 Labs: Laboratory Results - last 24 hr 05/16/21 01:08: WBC 12.6 H, RBC 4.54 L, Hgb 13.2, Hct 39.1 L, MCV 86.1, MCH 29.1, MCHC 33.8, RDW Std Deviation 40.0, RDW Coeff of Gamal 12.8, Plt Count 351, MPV 8.8, Immature Gran % (Auto) 2.500 H, Neut % (Auto) 75.7 H, Lymph % (Auto) 14.1 L, [place] % (Auto) 6.4, Eos % (Auto) 1.0, Baso % (Auto) 0.3, Absolute Neuts (auto) 9.5 H, Absolute Lymphs (auto) 1.77, Nucleated RBC % 0 05/16/21 01:08: Sodium 143, Potassium 3.5, Chloride 110 H, Carbon Dioxide 25.0, Anion Gap 8, BUN 25 H, Creatinine 0.96, Estim Creat Clear Calc 96.15, Est GFR (MDRD) Af Amer 109, Est GFR (MDRD) Non-Af 90, BUN/Creatinine Ratio 26.1 H, Glucose 140 H, Calcium 8.1 L, Troponin I High Sens 22 Assessment & Plan Assessment/Plan (1) Pneumonia due to COVID-19 virus: (2) Hypoxia: PLAN: The patient is a 45 y/o M w/ PMHx: Morbid Obesity, CARMEL, HTN, Asthma w/ frequent Bronchitis with Allergic Rhinitis who presents to the [facility] ED on 05/16/21 with history of Covid symptoms ongoing x16 days initially seen 11 days prior in the ED with diagnosis of COVID at that time with initiation on 2 L nasal cannula however patient notes for the last week is worsened with increasing nonproductive cough, worsening dyspnea and tachycardia as well as fevers. 1. Acute Hypoxia, Worsening secondary to Acute Bilateral Pneumonia secondary to Acute Viral Syndrome, COVID-19: Will admit to the MA telemetry floor, given hypoxia will continue COVID precautions as timeline would require 21 days, will maintain on oxygen with wean as tolerated to room air, PRN albuterol, HOB, IS parameters w/ pending sputum cultures, respiratory viral panel and urine antigens, will obtain D-dimer, procalcitonin, CRP, CPK, Ferritin, LDH, trop and BNP, continue supportive care including q 2 hour turning including prone given no prone bed availability and judicious hydration, closely monitor for worsening status for ARDS and multiorgan failure, will initiate and continue IV decadron given presentation with notable worsening hypoxia, not candidate for remdesivir, if transition to airvo or BIPAP would request ID evaluation for barcitinib consideration. Will place on vanc and zosyn pending procalcitonin as certainly could be superimposed bacterial infection with MRSA screen but would quickly de-escalate off abx therapy if more consistent with primarily COVID progression. 2. Hypertension: Continue home regimen including lisinopril with hold parameters as needed, PRN hydralazine. 3. Chronic Asthma with frequent Bronchitis w/ Allergic rhinitis: We will maintain oxygen with supplementation as noted above, as needed albuterol, encourage head of bed and I-S, we will continue patient home fluticasone regimen. 4. Obesity: Weight loss and lifestyle changes encouraged. 5. CARMEL: We will attempt BiPAP nightly per discussions with patient; however, patient in the past has refused any nocturnal Pap therapy. 6. DVT prophylaxis: SCDs, Lovenox. 7. CODE status: Given acute presentation with worsening hypoxia with also worsened bilateral Covid pneumonia, discussed CODE status at length including difference between FULL code, DNR-CCA and DNR-CC status. Following discussions about the differences in these status, requested Full Code status. Patient is amenable to airvo and BIPAP usage. He normally has avoiding using recommended nocturnal pap devices but is amenable to q HS trial also of note. Advanced Care Planning Face to Face Time: 16 minutes. Charges/Coding Visit Charges Inpatient E&M: 40117 Init Hosp L3 Procedures Hospitalists Procedures: 05060 Advncd Care Plan 30 Min
[2021-05-16 02:53] LABS: Lactic Acid 1.2 mmol/L (0.4-1.9)
[2021-05-16 03:44] LABS: BNP,B-Type NATRIURETIC PEPTIDE 18.2 pg/mL (0-100)
[2021-05-16 04:04] LABS: Procalcitonin < 0.04 ng/mL (0.00-0.09)
[2021-05-16 04:14] LABS: D-Dimer Quantitative (DVT/PE) 1.97 FEU/ug/m (0.27-0.49)
[2021-05-16 04:16] LABS: AST(SGOT) 34 U/L (15-37); Alanine Aminotransfer ALT/SGPT 113 U/L (16-61); Albumin, Serum 2.5 g/dL (3.2-5.0); Alkaline Phosphatase 58 U/L (45-117); Bilirubin, Direct 0.22 mg/dL (0.00-0.30); Ferritin 492 ng/mL (26-388); Globulin 3.8 g/dL (2.2-4.2); LDH 262 U/L (87-241); Protein, Total 6.3 g/dL (6.4-8.2)
--- NOTE | 2021-05-16 04:23 | PCS.PANDOC ---
PANDEMIC DOCUMENTATION INITIATED: Date: 03/08/2021 Time: 190
[2021-05-16] MEDS: 0.9% Saline Lock 10 ML Syringe IV (05:14)
[2021-05-16] MEDS: Furosemide 40 MG/4 ML Vial IV (05:20)
[2021-05-16] MEDS: dexAMETHasone 4 MG/ML Vial 6 MG IV (05:21)
--- NOTE | 2021-05-16 05:55 | NURSING ---
Talked to Archie in Pharmacy and he wants Zosyn started first and then try to get second line for Vanc.
[2021-05-16] MEDS: Acetaminophen 325 MG Tablet 650 MG PO (06:15)
--- NOTE | 2021-05-16 06:45 | CPS ---
Pt has an order for BIPAP @[facility] but pt doesn't wear one at home. He had 2 sleep studies, one @home and one in [facility], which he failed both but is unable to afford the monthly cost so he never started wearing one. I am unable to obtain these results so I do not know what type or what settings he needs (if he has central apnea, i could make things worse by guessing PAP settings). Pt says his deductible has recently been met so he will pursue getting a PAP machine when he gets out of the hospital.
[2021-05-16 06:49] LABS: M R Staph aureus DNA By PCR Negative (Negative); Probe Check PASS; Specimen Processing Control PASS
[2021-05-16 08:02] LABS: Absolute Lymphocyte Count 0.81 X10^3/uL (0.83-4.51); Absolute Neutrophil Count 12.8 X10^3/uL (2.0-7.7); Basophil# 0.06 X10^3/uL; Basophil% 0.4 % (0-1); Eosinophil# 0.17 X10^3/uL; Eosinophils% 1.1 % (0-5); Hematocrit 41.5 % (40-54); Hemoglobin 14.1 g/dL (13.0-16.5); Lymphocyte # 0.81 X10^3/ul (0.83-4.51); Lymphocyte % 5.4 % (19-41); Mean Corpuscular Volume 85.4 fL (80-94); Monocyte# 0.81 X10^3/uL; Monocyte% 5.4 % (0-10); NRBC Flagged by Analyzer 0 % (0-5); Neutrophil # 12.83 X10^3/uL (2.7-7.7); Neutrophil % 84.8 % (47-70); Platelet Count 360 K/mm3 (150-450); RBC Distribution Width CV 12.9 % (11.6-14.6); RBC Distribution Width SD 39.8 fl (35.1-43.9); Red Blood Count 4.86 M/mm3 (4.6-6.2); White Blood Count 15.1 K/mm3 (4.4-11.0)
[2021-05-16 08:30] LABS: ALB/GLOB Ratio 0.8 RATIO (0.9-2.4); AST(SGOT) 29 U/L (15-37); Alanine Aminotransfer ALT/SGPT 111 U/L (16-61); Alkaline Phosphatase 55 U/L (45-117); Anion Gap 9 (5-15); BUN 20 mg/dL (7-18); BUN/Creat Ratio 20.1 RATIO (10-20); Calcium,Total 8.2 mg/dL (8.5-10.1); Chloride 106 mmol/L (98-107); EST Glomerular Filtration Rate 86 mL/min (>60); Est Glom Filt Rate - Afr Amer 104 mL/min (>60); Glucose 141 mg/dL (74-106); Potassium 3.8 mmol/L (3.5-5.1); Sodium Level 140 mmol/L (136-145)
[2021-05-16] MEDS: Enoxaparin 40 MG/0.4 ML Syringe SC ×2 (08:49→22:08)
[2021-05-16] MEDS: Lisinopril 40 MG Tablet PO (08:56)
[2021-05-16] MEDS: Loratadine 10 MG Tablet PO (08:56)
[2021-05-16] MEDS: Fluticasone 0.05% 1 SPRAY NASAL.SRY NASAL (09:02)
--- NOTE | 2021-05-16 09:06 | PHA.PHARE_ITS ---
Consult Pharmacy has been consulted to manage selected antiobiotic: Vancomycin Type of Consult: New start Suspected Infection: Pneumonia Labs: Sodium 140 mmol/L (136-145) 05/16/21 07:39 Potassium 3.8 mmol/L (3.5-5.1) 05/16/21 07:39 Chloride 106 mmol/L (98-107) 05/16/21 07:39 Carbon Dioxide 25.0 mmol/L (21.0-32.0) 05/16/21 07:39 Anion Gap 9 (5-15) 05/16/21 07:39 BUN 20 mg/dL (7-18) H 05/16/21 07:39 Creatinine 1.00 mg/dL (0.70-1.30) 05/16/21 07:39 Est GFR (MDRD) Af Amer 104 mL/min (>60) 05/16/21 07:39 Est GFR (MDRD) Non-Af 86 mL/min (>60) 05/16/21 07:39 BUN/Creatinine Ratio 20.1 RATIO (10-20) H 05/16/21 07:39 Glucose 141 mg/dL (74-106) H 05/16/21 07:39 Microbiology: Microbiology 05/16/21 07:45 Urine, Random Legionella Antigen - Final 05/16/21 07:45 Urine, Random Streptococcus pneumoniae Antigen (M - Final Weight used for dosin.6 kg Estimated Creatinine Clearance: 123ML/MIN Goal Trough: 15-20 mcg/mL Pharmacy Plan for Drug Dosing: Give initial loading dose (25mg/kg) of 2000mg IV x1 as ordered, then continue with 1500mg IV q8h per [facility] dosing protocol. Will check a vanc trough before the 4th total dose. The patient's CrCl of 123ml/min was calculated using an adjusted body weight of 93.9kg. Pharmacy Service will continue to monitor and adjust dosing as required. Follow-Up Labs: Trough Vancomycin Labs to be done on [date and time ordered]: 05/17/21 9802
[2021-05-17] VITALS (16 sets, daily range): BP systolic 109–142; BP diastolic 75–96; PULSE 68–99; RESP 18; TEMP 36.4–36.8; O2SAT 90–95
--- NOTE | 2021-05-17 04:56 | CPS ---
pt tolerated the bipap for over 4 hours. Pt back on 4L nasal o2
[2021-05-17 07:04] LABS: Absolute Lymphocyte Count 1.21 X10^3/uL (0.83-4.51); Absolute Neutrophil Count 11.5 X10^3/uL (2.0-7.7); Basophil# 0.01 X10^3/uL; Basophil% 0.1 % (0-1); Eosinophil# 0.22 X10^3/uL; Eosinophils% 1.6 % (0-5); Hematocrit 40.7 % (40-54); Hemoglobin 13.7 g/dL (13.0-16.5); Lymphocyte # 1.21 X10^3/ul (0.83-4.51); Lymphocyte % 8.7 % (19-41); Mean Corp Hgb Conc 33.7 g/dL (32-36); Mean Corpuscular Hgb 29.3 pg (27.0-32.0); Mean Platelet Vol. 9.4 fl (6.2-12.0); Monocyte# 0.78 X10^3/uL; Monocyte% 5.6 % (0-10); NRBC Flagged by Analyzer 0 % (0-5); Neutrophil # 11.52 X10^3/uL (2.7-7.7); Neutrophil % 82.6 % (47-70); Platelet Count 305 K/mm3 (150-450); RBC Distribution Width CV 13.2 % (11.6-14.6); RBC Distribution Width SD 41.7 fl (35.1-43.9); Red Blood Count 4.68 M/mm3 (4.6-6.2); White Blood Count 13.9 K/mm3 (4.4-11.0)
[2021-05-17 07:15] LABS: Anion Gap 5 (5-15); BUN 26 mg/dL (7-18); BUN/Creat Ratio 32.7 RATIO (10-20); Calcium,Total 8.6 mg/dL (8.5-10.1); Chloride 108 mmol/L (98-107); EST Glomerular Filtration Rate 111 mL/min (>60); Est Glom Filt Rate - Afr Amer 135 mL/min (>60); Estimated Creatinine Clearance 115.38 ml/min; Glucose 134 mg/dL (74-106); Potassium 4.2 mmol/L (3.5-5.1); Sodium Level 139 mmol/L (136-145)
[2021-05-17] MEDS: Enoxaparin 40 MG/0.4 ML Syringe SC ×2 (09:37→22:06)
[2021-05-17] MEDS: Loratadine 10 MG Tablet PO (09:37)
[2021-05-17] MEDS: dexAMETHasone 4 MG/ML Vial 6 MG IV (09:38)
[2021-05-17] MEDS: 0.9% Saline Lock 10 ML Syringe IV (09:38)
[2021-05-17] MEDS: Lisinopril 40 MG Tablet PO (09:44)
[2021-05-17] MEDS: Fluticasone 0.05% 1 SPRAY NASAL.SRY NASAL (09:56)
--- NOTE | 2021-05-17 10:47 | PCM.RX.CS ---
Consult Pharmacy has been consulted to manage selected antiobiotic: Vancomycin Type of Consult: Follow-up Suspected Infection: Pneumonia Prior Doses of Antibiotics Received/Current Regimen: 1500mg iv q8h Labs: Sodium 139 mmol/L (136-145) 05/17/21 06:20 Potassium 4.2 mmol/L (3.5-5.1) 05/17/21 06:20 Chloride 108 mmol/L (98-107) H 05/17/21 06:20 Carbon Dioxide 26.0 mmol/L (21.0-32.0) 05/17/21 06:20 Anion Gap 5 (5-15) 05/17/21 06:20 BUN 26 mg/dL (7-18) H 05/17/21 06:20 Creatinine 0.80 mg/dL (0.70-1.30) 05/17/21 06:20 Est GFR (MDRD) Af Amer 135 mL/min (>60) 05/17/21 06:20 Est GFR (MDRD) Non-Af 111 mL/min (>60) 05/17/21 06:20 BUN/Creatinine Ratio 32.7 RATIO (10-20) H 05/17/21 06:20 Glucose 134 mg/dL (74-106) H 05/17/21 06:20 Vancomycin Trough 14.0 ug/mL (5.0-15.0) 05/17/21 09:00 Microbiology: Microbiology 05/16/21 06:46 Mucosa - Nose Respiratory Panel (PCR) - Final 05/16/21 07:45 Urine, Random Legionella Antigen - Final 05/16/21 07:45 Urine, Random Streptococcus pneumoniae Antigen (M - Final Weight used for dosin kg Estimated Creatinine Clearance: >120ml/min Goal Trough: 15-20 mcg/mL Pharmacy Plan for Drug Dosing: Trough today was 14.0 with goal range of 15-20mcg/ml. Will increase dose to 1750mg iv q8h. Another trough level is ordered for 05.18.21 before 4th dose of new regimen. Pharmacy Service will continue to monitor and adjust dosing as required. Follow-Up Labs: Trough Vancomycin - 05.18.21@1630 before 1700 dose
--- NOTE | 2021-05-17 11:38 | PN.HOSP_ITS ---
Subjective Subjective Feels much better today. No new issues overnight. He is down about 3 L nasal cannula at rest will obtain ambulatory pulse ox. Objective Data Objective Data Vital Signs: Vital Signs Temp Pulse Resp BP Pulse Ox 97.8 F 72 18 142/75 H 93 05/17/21 09:45 05/17/21 09:45 05/17/21 09:45 05/17/21 09:45 05/17/21 09:45 Oxygen Flow Rate (L/min) 3 Oxygen Delivery Method Nasal Cannula Weight: 281 lb Body Mass Index (BMI) 41.8 Intake & Output: Intake and Output for Last 24 Hours 05/16/21 05/17/21 05/18/21 03:59 03:59 03:59 Intake Total 550 / 805 2605 / 2605 1050 / 1050 Output Total 2175 / 2175 400 / 400 Balance 550 / 805 430 / 430 650 / 650 Lab / Micro Data Result Diagrams: 05/17/21 06:20 05/17/21 06:20 Labs: Laboratory Results - last 24 hr 05/17/21 06:20: WBC 13.9 H, RBC 4.68, Hgb 13.7, Hct 40.7, MCV 87.0, MCH 29.3, MCHC 33.7, RDW Std Deviation 41.7, RDW Coeff of Gamal 13.2, Plt Count 305, MPV 9.4, Immature Gran % (Auto) 1.400 H, Neut % (Auto) 82.6 H, Lymph % (Auto) 8.7 L, Preston % (Auto) 5.6, Eos % (Auto) 1.6, Baso % (Auto) 0.1, Absolute Neuts (auto) 11.5 H, Absolute Lymphs (auto) 1.21, Nucleated RBC % 0 05/17/21 06:20: Sodium 139, Potassium 4.2, Chloride 108 H, Carbon Dioxide 26.0, Anion Gap 5, BUN 26 H, Creatinine 0.80, Estim Creat Clear Calc 115.38, Est GFR (MDRD) Af Amer 135, Est GFR (MDRD) Non-Af 111, BUN/Creatinine Ratio 32.7 H, Glucose 134 H, Calcium 8.6 05/17/21 09:00: Vancomycin Trough 14.0 Micro: Microbiology 05/16/21 06:46 Mucosa - Nose Respiratory Panel (PCR) - Final 05/16/21 07:45 Urine, Random Legionella Antigen - Final 05/16/21 07:45 Urine, Random Streptococcus pneumoniae Antigen (M - Final Physical Exam Const alert, oriented x3 and no apparent distress General Appearance: cooperative HEENT normocephalic and moist oral mucous membranes Eyes PERRL, EOMs intact bilaterally and conjunctivae normal Neck supple and no JVD Resp normal respiratory effort, no retractions and no use of accessory muscles Auscultation: crackles and diminished lung sounds; Negative for rales, rhonchi or wheezes Cardio regular rate, regular rhythm, S1 normal heart sound, S2 normal heart sound and no murmurs GI soft to palpation, non-tender and non-distended; Negative for hepatosplenomegaly Extremity no clubbing, cyanosis or edema Skin no rashes or lesions noted Neuro no focal motor deficits and no sensory deficits noted Psych affect normal Appearance: appropriate Assessment & Plan Assessment/Plan (1) Pneumonia due to COVID-19 virus: (2) Hypoxia: PLAN: 1. Acute hypoxic respiratory failure secondary to COVID-19 pneumonia/chronic asthma with frequent bronchitis/CARMEL -Symptoms started 04/30/2021, and he presented to the ER on 05/05/2021, he was discharged home on 10 days of Decadron -At that time he had a CT of the chest which was negative for PE. He was also started on home O2 but he does admit to not wearing it all the time as he should have -He presented again with worsening hypoxia and had a repeat CTA which was still negative for PE but did show significant bilateral pneumonia -Procalcitonin was less than 0.04, he is afebrile and his elevated white count is likely secondary to the Decadron that he had completed prior to admission, MRSA PCR is negative. Given his clinical worsening can likely continue with 5 days total of antibiotics and addition of p.o. Levaquin -Discontinue Decadron, he has already completed 10 days -Does not qualify for remdesivir or baricitinib -He does have crackles on exam today so he likely has a fluid overload state therefore will provide him with Lasix -We will continue with his inhaled Dexasone and albuterol -He does have CARMEL but does not have the financial means to pay for it apparently 2. HTN/morbid obesity -Blood pressures are stable, continue with lisinopril -BMI of 41.5, discussed lifestyle modifications DVT: Lovenox Charges/Coding Visit Charges Inpatient E&M: 06328 Subs Hosp L2
[2021-05-17] MEDS: levoFLOXacin 750 MG Tablet PO (12:31)
[2021-05-17] MEDS: Furosemide 40 MG/4 ML Vial IV (12:31)
--- NOTE | 2021-05-17 13:18 | CASEMGMT ---
Addendum entered by Michelle Jiang 05/17/21 14:18: Patient had Covid test done at [facility]: [address], [place] [address], P: , F: , E: [email or web address], [email or web address] Original Note: RN CM Assessment Patient is Covid positive, called patient cell phone to complete initial assessment. Introduced role of RN CM to patient. Patient is alert, oriented and able to participate in RN CM Assessment. Care providers, pharmacy, and demographics verified. Admit Dx: Covid PNA, Hypoxia Re-Admit: No. Was seen in the ER on 05/05/21 and Dc'd home with Home O2. Barriers/Issues: None. 1317- Called [employer] and s/w Alcides- verified that patient does have O2 with [employer] and order is for 2lpm continuous. States had Covid and out of quarantine. Son had Covid about 1month ago and denies 8month old being ill and has not tested for Covid. Able to quarantine in home away from family if needed. PCP: Rayshawn Adhikari Specialists: None Preferred [facility]acy: [facility] Insurance: [employer] Benefit: Yes LNOK: Anaya Dugan LW/HPOA: None. Patient informed can return as an outpatient to complete with social worker health services at a later time. Living Arrangements: Lives with , son and Dtr (children 7yo and 8months old) in a 2SH, bedroom on [facility]. ADL?s: Independent with ambulation and ADLs. Transportation: Both patient and Drive. will transport upon DC. DME: Incentive Spirometer, Pulse Ox, Home O2-[employer]. HHC: None SNF: None Goal: Home. Asking about CPAP at [place]. States has had two sleep studies in the past- one years ago at [place] and latest one at home about 2yrs ago. Aware would need a current sleep study for CPAP settings. Patient does not follow with Pulmonology. Per Dr Kingston- Sleep study is not done inpatient. Patient denies any other questions, concerns, needs with going home and DC planning at this time. Aware RNCM will continue to follow should any needs arise. DC PLAN: Home, RNCM to follow for any Oxygen order change. Vee Jiang, RCOWCM
[2021-05-18] VITALS (9 sets, daily range): BP systolic 124–144; BP diastolic 68–88; PULSE 70–96; RESP 16–18; TEMP 36.6–36.8; O2SAT 88–96
[2021-05-18] MEDS: levoFLOXacin 750 MG Tablet PO (05:26)
[2021-05-18] MEDS: Mag Hydrox/Al Hydrox/Simeth 30 ML UDC PO (07:36)
[2021-05-18] MEDS: Loratadine 10 MG Tablet PO (11:11)
[2021-05-18] MEDS: Sodium Chloride 0.65% 1 SPRAY SPRAY.BTL 2 SPRAY NASAL (11:11)
[2021-05-18] MEDS: Enoxaparin 40 MG/0.4 ML Syringe SC (11:11)
[2021-05-18] MEDS: Lisinopril 40 MG Tablet PO (11:11)
[2021-05-18] MEDS: Fluticasone 0.05% 1 SPRAY NASAL.SRY NASAL (11:52)
--- NOTE | 2021-05-18 12:08 | PCM.DC ---
Discharge Instructions Diet Discharge Diet: Low fat / Low cholesterol Activity Discharge Activity: Return to Normal Activity Dressing / Incision Call your doctor if you observe: Fever of 101 or Higher, Shortness of breath, Dizziness, Fainting spells, Swelling in the ankles, Chest pain and Increased palpitations (irregular heartbeat) Follow Up Care Test Results: Test results from this visit will be discussed in further detail at your follow-up appointment, if applicable. Discharge Plan Admission Admit Date/Time: 05/16/21 02:27 Attending Provider: Gómez Kingston Primary Care Provider: Rayshawn Adhikari Instructions Additional Instructions / Restrictions: You will complete quarantine on 05/19/2021 Discharge Orders/Prescriptions Prescriptions: New levofloxacin 750 mg Tablet 750 mg PO DAILY@0600 Qty: 5 RF: 0 Continued fluticasone propionate [Flonase Allergy Relief] 50 mcg/actuation spray,suspension 1 spray intranasal DAILY RF: 0 lisinopril 40 MG tablet 40 mg PO DAILY RF: 0 Allergy Relief D12 1 EACH tablet extended release 12 hr 1 ea PO DAILY RF: 0 albuterol sulfate [Ventolin HFA] 90 mcg/actuation HFA aerosol inhaler 2 puff INHALATION Q4H PRN PRN (Reason: SOB/WHEEZING) RF: 0 Referrals / Follow Up: Rayshawn Adhikari MD [Primary Care Provider] - Within 1 Week Disposition Disposition (needs filled in before D/C Order can be placed): Home, Self Care
--- NOTE | 2021-05-18 14:04 | PCM.DC.SUM ---
Providers Date of Admission: 05/16/21 Primary Care Physician: Dr. Rayshawn Adhikari MD Reason For Visit: COVID PNA, HYPOIXIA Diagnosis Discharge Diagnosis (1) Pneumonia due to COVID-19 virus: Status: Acute Code(s): U07.1 - COVID-19; J12.82 - Pneumonia due to coronavirus disease 2019 (2) Hypoxia: Status: Acute Code(s): R09.02 - Hypoxemia Medications at Discharge Home Medications lisinopril 40 mg PO DAILY 08/04/18 Allergy Relief D12 1 ea PO DAILY 03/07/19 fluticasone propionate 50 mcg/actuation nasal spray,suspension 1 spray INTRANASAL DAILY 03/19/21 albuterol sulfate [Ventolin HFA] 2 puff INHALATION Q4H PRN PRN 05/05/21 levofloxacin 750 mg PO DAILY@0600 #5 tab 05/18/21 Hospital Course Operations None Procedures None Summary of Care Provided Minutes Spent on Discharge: 42 Hospital Course: Per HPI:The patient is a 45 y/o M w/ PMHx: Morbid Obesity, CARMEL, HTN, Asthma w/ frequent Bronchitis with Allergic Rhinitis who presents to the [facility] ED on 05/16/21 with history of Covid symptoms ongoing x16 days initially seen 11 days prior in the ED with diagnosis of COVID at that time with initiation on 2 L nasal cannula however patient notes for the last week is worsened with increasing nonproductive cough, worsening dyspnea and tachycardia as well as fevers, decreased sense of taste of smell, headache prompting repeat evaluation. Patient did complete a 10-day course of Decadron therapy. Patient of note did have initial CT on 05/05/21 that did not have any evidence of pulmonary emboli at that time. Patient is unvaccinated against COVID-19. His of note did have symptoms for approximately 4 days but completely resolved following. She also notes that her symptoms were mild. Work-up in the ED included T 98.2, heart rate 125, BP 134/67, respiratory rate 26, 92% on 4 L nasal cannula, CBC with WBC 12.6, hemoglobin 13.2, platelets 351 with left shift, BMP with chloride 110, BUN/creatinine 25/0.96, glucose 140, high-sensitivity cardiac troponin 22, CTPA with extensive multifocal pneumonia bilaterally with no evidence of PE or dissection, blood culture x2 pending per ED. In the ED patient ministered normal saline bolus, azithromycin and Rocephin. Hospital Course: 1. Acute hypoxic respiratory failure secondary to COVID-19 pneumonia/chronic asthma with frequent bronchitis/CARMEL -Symptoms started 04/30/2021, and he presented to the ER on 05/05/2021, he was discharged home on 10 days of Decadron -At that time he had a CT of the chest which was negative for PE. He was also started on home O2 but he does admit to not wearing it all the time as he should have -He presented again with worsening hypoxia and had a repeat CTA which was still negative for PE but did show significant bilateral pneumonia -Procalcitonin was less than 0.04, he is afebrile and his elevated white count is likely secondary to the Decadron that he had completed prior to admission, MRSA PCR is negative. Given his clinical worsening can likely continue with 5 days total of antibiotics and addition of p.o. Levaquin -Discontinue Decadron, he has already completed 10 days -Does not qualify for remdesivir or baricitinib -He does have crackles on exam today so he likely has a fluid overload state therefore will provide him with Lasix -We will continue with his inhaled Dexasone and albuterol -He does have CARMEL but does not have the financial means to pay for it apparently -05/18/2021: Patient doing very well today, he is resting comfortably on room air but does need 2 L for ambulation. He already has an oxygen concentrator at home. His procalcitonin was normal however given his slight decompensation will continue 5 days of Levaquin on discharge. He does not need any further course of Decadron as he has already completed 10 days, I do recommend that he follow-up with his PCP in 3 to 5 days for follow-up. He does complete quarantine on 05/19/2021 and I do encourage her to get the vaccine. I discussed the plan for discharge today he expressed understanding of the risk benefits of going home and would like to go home today. 2. HTN/morbid obesity -Blood pressures are stable, continue with lisinopril -BMI of 41.5, discussed lifestyle modifications Physical Exam Const alert, oriented x3 and no apparent distress General Appearance: cooperative HEENT normocephalic and moist oral mucous membranes Eyes PERRL, EOMs intact bilaterally and conjunctivae normal Neck supple and no JVD Resp normal respiratory effort, no retractions and no use of accessory muscles Auscultation: crackles and diminished lung sounds; Negative for rales, rhonchi or wheezes Cardio regular rate, regular rhythm, S1 normal heart sound, S2 normal heart sound and no murmurs GI soft to palpation, non-tender and non-distended; Negative for hepatosplenomegaly Extremity no clubbing, cyanosis or edema Skin no rashes or lesions noted Neuro no focal motor deficits and no sensory deficits noted Psych affect normal Appearance: appropriate Weight / BMI Weight Weight: 281 lb Body Mass Index (BMI) 41.8 ABG / Lab / Microbiology Data Result Diagrams: 05/17/21 06:20 05/17/21 06:20 Microbiology: Microbiology 05/16/21 02:15 Blood Culture (Wb) - Anticubital Right Blood Culture - Preliminary No growth in 48 hours. 05/16/21 02:15 Blood Culture (Wb) - Anticubital Left Blood Culture - Preliminary No growth in 48 hours. 05/16/21 06:46 Mucosa - Nose Respiratory Panel (PCR) - Final 05/16/21 07:45 Urine, Random Legionella Antigen - Final 05/16/21 07:45 Urine, Random Streptococcus pneumoniae Antigen (M - Final D/C Instructions Discharge Diet: Low fat / Low cholesterol Call your doctor if you observe: Fever of 101 or Higher, Shortness of breath, Dizziness, Fainting spells, Swelling in the ankles, Chest pain and Increased palpitations (irregular heartbeat) Meaningful Use Info Meaningful Use Diagnoses (Choose all that apply): None applicable Discharge Plan Admission Admit Date/Time: 05/16/21 02:27 Attending Provider: Gómez Kingston Primary Care Provider: Rayshawn Adhikari Instructions Additional Instructions / Restrictions: You will complete quarantine on 05/19/2021 Discharge Orders/Prescriptions Prescriptions: New levofloxacin 750 mg Tablet 750 mg PO DAILY@0600 Qty: 5 RF: 0 Continued fluticasone propionate [Flonase Allergy Relief] 50 mcg/actuation spray,suspension 1 spray intranasal DAILY RF: 0 lisinopril 40 MG tablet 40 mg PO DAILY RF: 0 Allergy Relief D12 1 EACH tablet extended release 12 hr 1 ea PO DAILY RF: 0 albuterol sulfate [Ventolin HFA] 90 mcg/actuation HFA aerosol inhaler 2 puff INHALATION Q4H PRN PRN (Reason: SOB/WHEEZING) RF: 0 Referrals / Follow Up: Rayshawn Adhikari MD [Primary Care Provider] - Within 1 Week Disposition Disposition (needs filled in before D/C Order can be placed): Home, Self Care Charges/Coding Visit Charges Inpatient E&M: 17604 Disch Hosp
--- NOTE | 2021-05-19 15:54 | CASEMGMT ---
CROW CM Discharge Follow-Up Phone Call. Lace: 11 Strata: 3 Discharge Date: 05/18/21 Adm Dx: COVID PNA, Hypoxia Attempted discharge f/u phone call. No answer. Non-identifying VM received. Non-descript VM left requesting return call if there are any questions or concerns. Phone number provided. Jass GONZALEZ RN CM
== END 2021-05-18 13:47 | disposition home or self-care (01) | DRG 177 ==
LOC: ED 00:57 → MS3 02:46
PROVIDERS: Admitting Provider Family Medicine; Emergency Provider Emergency Medicine; PCP Family Medicine; Visit Provider Family Medicine
DX: U07.1 COVID-19 (principal); J12.82 Pneumonia due to coronavirus disease 2019; J96.01 Acute respiratory failure with hypoxia; Z68.41 Body mass index [BMI] 40.0-44.9, adult; G47.33 Obstructive sleep apnea (adult) (pediatric); I10 Essential (primary) hypertension; K76.0 Fatty (change of) liver, not elsewhere classified; E66.01 Morbid (severe) obesity due to excess calories; J45.909 Unspecified asthma, uncomplicated; Z99.81 Dependence on supplemental oxygen; Z79.899 Other long term (current) drug therapy; Z79.51 Long term (current) use of inhaled steroids; Z28.3 Underimmunization status
CPT/HCPCS: 36415; 71275; 80048; 80053; 80076; 80202; 82728; 83605; 83615; 83880; 84145; 84484; 85025; 85379; 86140; 87040; 87449; 87633; 87641; 93005; 94002; 94003; 94667; 94762; 99284; J7030; J7040; J7050; Q9967; A4216; J0696; J1940

== ENCOUNTER 2021-06-01 14:24 | Emergency (ER) | payer BC, SELFPAY ==
[2021-06-01 14:27] VITALS: BP 144/94; PULSE 102; RESP 16; TEMP 36.2; O2SAT 95; BMI 42.0
== END 2021-06-01 14:30 | disposition left against medical advice (07) ==
LOC: ED 15:12
PROVIDERS: PCP Family Medicine
DX: Z53.21 Procedure and treatment not carried out due to patient leaving prior to being seen by health care provider (principal)

== ENCOUNTER 2021-06-02 10:02 | Observation (INO) | payer BC, SELFPAY ==
[2021-06-02] VITALS (8 sets, daily range): BP systolic 104–160; BP diastolic 76–105; PULSE 75–102; RESP 12–22; TEMP 36.6–36.8; O2SAT 90–96; BMI 42.0; BMI 41.6
--- NOTE | 2021-06-02 10:25 | ED.VIS.BACK ---
HPI History of Present Illness Chief Complaint: Back Informant: patient and EMS Narrative Narrative: 45-year-old male states that on Monday began to have some pain in the left buttock left hip region. It was not that bad and he was able to work through it and on Monday went golfing and then went to a chiropractor appointment and had some soft tissue treatments. He tells me that when he got home he developed severe pain with radiation down the leg. He also notes some radiation into the inguinal region. He went to urgent care yesterday where he states he was given a shot of an anti-inflammatory medicine prescription for prednisone Valium and anti-inflammatories. States that nothing seems to be helping and he feels worse today. States that he will occasionally start getting muscle spasms in the thigh and the left buttock. No loss of bowel or bladder control. No fevers. No back injections. No IVD use. [facility] Medical History Carpal tunnel syndrome Fatty liver Hypertension CARMEL (obstructive sleep apnea) Home Medications lisinopril 40 mg PO DAILY 08/04/18 [History Last Taken 06/02/21] mometasone 2 inh INHALATION BID #1 ea 05/28/21 [Rx Last Taken 06/01/21] cetirizine [Zyrtec] 10 mg PO DAILY 06/02/21 [History Last Taken 06/02/21] diazepam 5 mg PO DAILY 06/02/21 [History Last Taken 06/02/21] methylprednisolone See Taper PO DAILY 06/02/21 [History Last Taken 06/02/21] naproxen 500 mg PO DAILY 06/02/21 [History Last Taken 06/02/21] Allergy/AdvReac Type Severity Reaction Status Date / Time No Known Allergies Allergy Verified 06/02/21 10:02 Family History Mother Heart disease Hypertension Kidney disease Father Heart disease Hypertension Kidney disease Surgical History H/O rhinoplasty S/p bilateral carpal tunnel release Social History household members: spouse Smoking Status: Never smoker alcohol intake: never substance use type: does not use ROS ROS ED Constitutional Constitutional ED: Denies chills, fever(s) or weight loss Eyes Eyes: Denies change in vision or diplopia ENT ENT ED: Denies ear pain, rhinorrhea or sore throat Cardiovascular Cardiovascular: Denies chest pain, orthopnea, palpitations or racing heartbeat Respiratory/Chest Respiratory/Chest: Denies cough, dyspnea or orthopnea Gastrointestinal Gastrointestinal: Denies abdominal pain, diarrhea, nausea or vomiting Genitourinary Genitourinary ED: Denies dysuria, hematuria or urinary frequency Musculoskeletal Musculoskeletal: Reports back pain and other Details: See HPI ; Denies arthralgias or myalgias Integumentary Denies abscess or rash Neurologic Neurologic: Denies headache(s) or weakness Psychiatric Psychiatric: Denies anxiety, depression, suicidal ideation or suicidal thoughts Endocrine Endocrinology: Denies polydipsia, polyphagia or polyuria Allergic/Immunologic Allergic/Immunologic ED: Denies mouth swelling, tongue swelling or urticaria EXAM Physical Exam Const Vital Signs: 06/02/21 10:03 06/02/21 11:32 06/02/21 13:00 Temperature 98.1 F Temperature Source Oral Pulse Rate 99 94 Respiratory Rate 22 H Blood Pressure 155/105 H 127/85 H Blood Pressure Mean 121 99 Pulse Ox 93 94 93 Oxygen Delivery Method Room Air Nasal Cannula Nasal Cannula Oxygen Flow Rate (L/min) 2 06/02/21 14:25 Temperature Temperature Source Pulse Rate 94 Respiratory Rate 14 Blood Pressure 152/95 H Blood Pressure Mean 114 Pulse Ox 93 Oxygen Delivery Method Nasal Cannula Oxygen Flow Rate (L/min) 2 Positive well nourished, well developed and obese General Appearance ED: well developed Nutritional Appearance: obese HEENT Reports normocephalic, head/scalp atraumatic, TM's clear and moist mucous membranes Negative for trauma Tympanic Membrane ED: Yes TM's clear Eyes PERRL and EOMs intact bilaterally Neck no lymphadenopathy, supple and no JVD Resp normal respiratory effort and clear to auscultation bilaterally Cardio regular rate, regular rhythm and no murmurs GI normal to inspection, nondistended, normoactive bowel sounds and non-tender Palpation: soft Back/Spine no CVA tenderness and normal ROM Back/Spine Narrative: Patient has tenderness palpation in the buttock into the piriformis notch and in the soft tissues around the left hip. Neurovascularly appears intact distally. Extremity General Extremety ED: Negative for edema General Extremity: Negative for edema Neuro oriented x3 and CN's II-XII intact bilaterally Sensorium / Orientation: alert Motor Exam: strength 5/5 throughout Deep Tendon Reflexes: Rt Patellar (L4): 2+, Lt Patellar (L4): 2+, Rt Ankle (S1): 2+ and Lt Ankle (S1): 2+ Deep Tendon Reflexes Back: Rt Patellar (L4): 2+, Lt Patellar (L4): 2+, Rt Ankle (S1): 2+ and Lt Ankle (S1): 2+ Psych mental status grossly normal Mood & Affect: Negative for depressed or tearful Skin no rashes or lesions noted and no wounds MDM MDM MDM Narrative Medical decision making narrative: Patient received 4 mg of morphine by EMS a total of 6 mg of morphine here, Ativan, Toradol, methylprednisolone, Zofran. CBC and CMP essentially negative. My interpretation of plain films of the left hip is no acute process. Interpretation of the plain films of the lumbar spine is multilevel spondylosis of the lumbar vertebrae with degenerative disc disease. He still is unable to ambulate more than 2 steps without his legs buckling. He states that he is not comfortable going home. I will speak with the hospitalist regarding admission. Lab Data Labs: Laboratory Results - last 24 hr 06/02/21 06/02/21 15:10 15:10 WBC 10.6 RBC 4.92 Hgb 14.1 Hct 41.6 MCV 84.6 MCH 28.7 MCHC 33.9 RDW Std Deviation 39.6 RDW Coeff of Gamal 12.9 Plt Count 195 MPV 9.7 Immature Gran % (Auto) 0.600 Neut % (Auto) 87.4 H Lymph % (Auto) 8.8 L [place] % (Auto) 2.9 Eos % (Auto) 0.0 Baso % (Auto) 0.3 Absolute Neuts (auto) 9.3 H Absolute Lymphs (auto) 0.93 Nucleated RBC % 0 Sodium 142 Potassium 4.2 Chloride 110 H Carbon Dioxide 26.0 Anion Gap 6 BUN 21 H Creatinine 0.88 Estim Creat Clear Calc 104.89 Est GFR (MDRD) Af Amer 120 Est GFR (MDRD) Non-Af 99 BUN/Creatinine Ratio 23.9 H Glucose 136 H Calcium 9.0 Total Bilirubin 1.00 AST 16 ALT 43 Alkaline Phosphatase 56 Total Protein 7.0 Albumin 3.4 Globulin 3.6 Albumin/Globulin Ratio 0.9 Radiography Diagnostic Testing: Clinical Impression(s) from Imaging Studies Hip/Pelvis X-Ray 06/02/21 15:20 IMPRESSION: There are no acute findings. Electronically Signed: Sudarshan Alexander MD at 15:51 EST , Service support , Lumbar Spine X-Ray 06/02/21 15:20 IMPRESSION: Degenerative changes of the spine, as detailed above. Electronically Signed: Sudarshan Alexander MD at 15:51 EST , Service support , Discharge Plan Dx/Rx/DC Orders Clinical Impression: Sciatica Disposition Disposition: Acute Care [facility]
[2021-06-02] MEDS: Ondansetron 4 MG/2 ML Vial IV ×2 (10:50→18:56)
[2021-06-02] MEDS: Morphine 4 MG/ML Syringe IV ×2 (10:50→18:56)
[2021-06-02] MEDS: Ketorolac 30 MG/ML Syringe IV (10:50)
[2021-06-02] MEDS: Morphine 2 MG/ML Syringe IV (12:48)
[2021-06-02] MEDS: LORazepam 2 MG/ML Syringe 1 MG IV (12:48)
[2021-06-02] MEDS: MethylPREDNISolone Acetate 40 MG/ML Vial 80 MG IM (14:18)
[2021-06-02 15:19] LABS: Absolute Lymphocyte Count 0.93 X10^3/uL (0.83-4.51); Absolute Neutrophil Count 9.3 X10^3/uL (2.0-7.7); Basophil# 0.03 X10^3/uL; Basophil% 0.3 % (0-1); Hematocrit 41.6 % (40-54); Hemoglobin 14.1 g/dL (13.0-16.5); Lymphocyte # 0.93 X10^3/ul (0.83-4.51); Lymphocyte % 8.8 % (19-41); Mean Corp Hgb Conc 33.9 g/dL (32-36); Mean Corpuscular Hgb 28.7 pg (27.0-32.0); Mean Corpuscular Volume 84.6 fL (80-94); Mean Platelet Vol. 9.7 fl (6.2-12.0); Monocyte# 0.31 X10^3/uL; Monocyte% 2.9 % (0-10); NRBC Flagged by Analyzer 0 % (0-5); Neutrophil # 9.28 X10^3/uL (2.7-7.7); Neutrophil % 87.4 % (47-70); Platelet Count 195 K/mm3 (150-450); RBC Distribution Width CV 12.9 % (11.6-14.6); RBC Distribution Width SD 39.6 fl (35.1-43.9); Red Blood Count 4.92 M/mm3 (4.6-6.2); White Blood Count 10.6 K/mm3 (4.4-11.0)
--- NOTE | 2021-06-02 15:20 | RAD_ITS ---
STUDY: X-RAY - PELVIS AND LEFT HIP REASON FOR EXAM: Male, 45 years old. PAIN FROM LOWER BACK INTO GROIN HX BACK PAIN, NKI TECHNIQUE: XR Hip Unilateral with Pelvis when performed; 2-3 Views COMPARISON: None. FINDINGS: There is a non-specific bowel gas pattern. Normal visualized soft tissue structures. Normal bilateral iliac wings, sacroiliac joints and visualized sacrum. Normal bilateral superior and inferior pubic rami. Normal pubic symphysis. Normal bilateral ischial tuberosities. Normal visualized femoral head. Normal acetabulum. Normal hip joint. RAD/HIP, UNI W/ Pelvis 2-3 Views IMPRESSION: There are no acute findings. Electronically Signed: Sudarshan Alexander MD at 15:51 EST , Service support ,
--- NOTE | 2021-06-02 15:20 | RAD_ITS ---
STUDY: X-RAY - LUMBAR SPINE REASON FOR EXAM: Male, 45 years old. Back pain pain TECHNIQUE: XR Spine Lumbar 2 or 3 Views COMPARISON: None FINDINGS: Normal lumbar lordosis. There is no substantial scoliosis. There is a normal alignment of the vertebrae. There is multilevel endplate spondylosis of the lumbar vertebrae. There is multi-level degenerative disc disease with multi-level disc space narrowing. The soft tissue structures are unremarkable. RAD/Lumbar Spine 2 or 3 Views IMPRESSION: Degenerative changes of the spine, as detailed above. Electronically Signed: Sudarshan Alexander MD at 15:51 EST , Service support ,
[2021-06-02 15:43] LABS: ALB/GLOB Ratio 0.9 RATIO (0.9-2.4); AST(SGOT) 16 U/L (15-37); Alanine Aminotransfer ALT/SGPT 43 U/L (16-61); Albumin, Serum 3.4 g/dL (3.2-5.0); Alkaline Phosphatase 56 U/L (45-117); Anion Gap 6 (5-15); BUN 21 mg/dL (7-18); BUN/Creat Ratio 23.9 RATIO (10-20); Chloride 110 mmol/L (98-107); Creatinine, Serum 0.88 mg/dL (0.70-1.30); EST Glomerular Filtration Rate 99 mL/min (>60); Est Glom Filt Rate - Afr Amer 120 mL/min (>60); Estimated Creatinine Clearance 104.89 ml/min; Globulin 3.6 g/dL (2.2-4.2); Glucose 136 mg/dL (74-106); Potassium 4.2 mmol/L (3.5-5.1); Sodium Level 142 mmol/L (136-145)
--- NOTE | 2021-06-02 16:25 | HP.PCM_ITS ---
Documented by User: MOE Aguilar 06/02/21 16:36 HPI - General General Date of Admission: 06/02/21 Date of Service: 06/02/21 Chief Complaint: Butt and leg pain HPI Narrative ELBA GEORGE, is a 45 M who presents with complaints of left leg and butt pain. Patient States That He Has Had Back Pain for a Few Weeks and Has Been Seeing a Chiropractor but on Monday Pain Began to Get Sharp and Shooting down His Left Leg and Has Gotten Subsequently Worse over the Weekend. Patient has been treated outpatient with naproxen and methylprednisolone which has not been effective. Patient denies injury prior to onset of pain. [facility] Medical History Carpal tunnel syndrome Fatty liver Hypertension CARMEL (obstructive sleep apnea) Home Medications lisinopril 40 mg PO DAILY 08/04/18 [History Last Taken 06/02/21] mometasone 2 inh INHALATION BID #1 ea 05/28/21 [Rx Last Taken 06/01/21] cetirizine [Zyrtec] 10 mg PO DAILY 06/02/21 [History Last Taken 06/02/21] diazepam 5 mg PO DAILY 06/02/21 [History Last Taken 06/02/21] methylprednisolone See Taper PO DAILY 06/02/21 [History Last Taken 06/02/21] naproxen 500 mg PO DAILY 06/02/21 [History Last Taken 06/02/21] Allergy/AdvReac Type Severity Reaction Status Date / Time No Known Allergies Allergy Verified 06/02/21 10:02 Family History Mother Heart disease Hypertension Kidney disease Father Heart disease Hypertension Kidney disease Surgical History H/O rhinoplasty S/p bilateral carpal tunnel release Social History household members: spouse Smoking Status: Never smoker alcohol intake: never substance use type: does not use ROS Constitutional Constitutional: Denies anorexia, chills, fatigue, malaise or weakness Cardiovascular Cardiovascular: Denies chest pain, edema, palpitations or syncope Respiratory/Chest Respiratory/Chest: Denies cough, shortness of breath at rest, shortness of breath with exertion or wheezing Gastrointestinal Gastrointestinal: Denies abdominal pain, constipation, diarrhea, nausea or vomiting Genitourinary Genitourinary: Denies dysuria Musculoskeletal Musculoskeletal: Reports back pain, extremity pain, limited range of motion, muscle spasms and tingling Integumentary Integumentary: Reports dry skin Neurologic Neurologic: Denies abnormal gait, abnormal speech, confusion or dizziness Psychiatric Psychiatric: Denies anxiety or depression Endocrine Endocrinology: Denies change in body appearance Hematologic/Lymphatic Hematologic/Lymphatic: Denies anemia Vital Signs Vital Signs Vital Signs: 06/02/21 10:03 06/02/21 11:32 06/02/21 13:00 Temperature 98.1 F Temperature Source Oral Pulse Rate 99 94 Respiratory Rate 22 H Blood Pressure 155/105 H 127/85 H Blood Pressure Mean 121 99 Pulse Ox 93 94 93 Oxygen Delivery Method Room Air Nasal Cannula Nasal Cannula Oxygen Flow Rate (L/min) 2 06/02/21 14:25 Temperature Temperature Source Pulse Rate 94 Respiratory Rate 14 Blood Pressure 152/95 H Blood Pressure Mean 114 Pulse Ox 93 Oxygen Delivery Method Nasal Cannula Oxygen Flow Rate (L/min) 2 Weight Weight: 285 lb Body Mass Index (BMI) 42.0 Physical Exam Const alert and oriented x3 General Appearance: cooperative HEENT normocephalic and head/scalp atraumatic Eyes conjunctivae normal and no scleral icterus Neck full ROM and supple General: trachea midline Resp normal respiratory effort, normal air movement and clear to auscultation bilaterally Cardio regular rate, regular rhythm, S1 normal heart sound, S2 normal heart sound and peripheral pulses 2+ throughout GI normal to inspection, nondistended, normoactive bowel sounds, soft to palpation and non-tender Extremity normal capillary refill and no clubbing, cyanosis or edema Peripheral Pulses: Yes pulses 2+ throughout Skin General Skin Exam: no breakdown and turgor normal Lesions: no lesions Rashes: no rashes Neuro oriented x3, moves all extremities, no focal motor deficits and no sensory deficits noted Sensory Exam: extremities Motor Exam: strength 5/5 throughout Psych mental status grossly normal, thought process normal and cooperative Activity / Motor Behavior: restless Results Lab / Micro Data Result Diagrams: 06/02/21 15:10 06/02/21 15:10 Labs: Laboratory Results - last 24 hr 06/02/21 15:10: WBC 10.6, RBC 4.92, Hgb 14.1, Hct 41.6, MCV 84.6, MCH 28.7, MCHC 33.9, RDW Std Deviation 39.6, RDW Coeff of Gamal 12.9, Plt Count 195, MPV 9.7, Immature Gran % (Auto) 0.600, Neut % (Auto) 87.4 H, Lymph % (Auto) 8.8 L, [place] % (Auto) 2.9, Eos % (Auto) 0.0, Baso % (Auto) 0.3, Absolute Neuts (auto) 9.3 H, Absolute Lymphs (auto) 0.93, Nucleated RBC % 0 06/02/21 15:10: Sodium 142, Potassium 4.2, Chloride 110 H, Carbon Dioxide 26.0, Anion Gap 6, BUN 21 H, Creatinine 0.88, Estim Creat Clear Calc 104.89, Est GFR (MDRD) Af Amer 120, Est GFR (MDRD) Non-Af 99, BUN/Creatinine Ratio 23.9 H, Gluco se 136 H, Calcium 9.0, Total Bilirubin 1.00, AST 16, ALT 43, Alkaline Phosphatase 56, Total Protein 7.0, Albumin 3.4, Globulin 3.6, Albumin/Globulin Ratio 0.9 Radiology Impression Hip/Pelvis X-Ray 06/02/21 15:20 IMPRESSION: There are no acute findings. Electronically Signed: Sudarshan Alexander MD at 15:51 EST , Service support , Lumbar Spine X-Ray 06/02/21 15:20 IMPRESSION: Degenerative changes of the spine, as detailed above. Electronically Signed: Sudarshan Alexander MD at 15:51 EST , Service support , Assessment & Plan Assessment/Plan (1) Sciatica: QUALIFIERS: Laterality: left Qualified Code(s): M54.32 - Sciatica, left side (2) Hypertension: QUALIFIERS: Hypertension type: unspecified Qualified Code(s): I10 - Essential (primary) hypertension (3) CARMEL (obstructive sleep apnea): PLAN: 1. Sciatica -Admit to [facility] -Patient received IV ketorolac and lorazepam in ER as well as multiple doses of IV morphine. Patient also received methylprednisolone 80 mg IM x1. -We will consult Dr. Jacob for evaluation for need of pain management options -We will continue IV morphine as well as gabapentin. -Lumbar spine x-ray shows degenerative changes, MRI ordered. 2. Hypertension -Continue lisinopril 3. Asthma -Continue mometasone twice daily DVT prophylaxis-not indicated, observation status This patient was seen by MOE Aguilar under the supervision of Dr. Anderson. Documented by User: Dr. Nav Anderson DO 06/02/21 17:59 HPI - General General Date of Admission: 06/02/21 [facility] Medical History Carpal tunnel syndrome Fatty liver Hypertension CARMEL (obstructive sleep apnea) Home Medications lisinopril 40 mg PO DAILY 08/04/18 [History Last Taken 06/02/21] mometasone 2 inh INHALATION BID #1 ea 05/28/21 [Rx Last Taken 06/01/21] cetirizine [Zyrtec] 10 mg PO DAILY 06/02/21 [History Last Taken 06/02/21] diazepam 5 mg PO DAILY 06/02/21 [History Last Taken 06/02/21] methylprednisolone See Taper PO DAILY 06/02/21 [History Last Taken 06/02/21] naproxen 500 mg PO DAILY 06/02/21 [History Last Taken 06/02/21] Allergy/AdvReac Type Severity Reaction Status Date / Time No Known Allergies Allergy Verified 06/02/21 10:02 Family History Mother Heart disease Hypertension Kidney disease Father Heart disease Hypertension Kidney disease Surgical History H/O rhinoplasty S/p bilateral carpal tunnel release Social History household members: spouse Smoking Status: Never smoker alcohol intake: never substance use type: does not use Results Lab / Micro Data Result Diagrams: 06/02/21 15:10 06/02/21 15:10 Charges/Coding Addendum Addendum: Patient was seen and examined independently of Mita Cifuentes, he came to the ER today at [facility] with complaints of left buttocks pain and pain down his left leg along with tingling of his left foot. He described the pain as being sharp in nature and very severe, he did not complain of any actual weakness in his left leg but he stated that he felt like when he was walking his leg would give out. Patient had seen his chiropractor recently, he had also been seen at urgent care yesterday and given prednisone, Valium, and an anti-inflammatory. Patient underwent work-up in the emergency room today. On examination he appeared in good health and spirits. Vital signs as documented . Skin warm and dry and without overt rashes. Neck without JVD, neck was supple, trachea midline, thyroid was normal. Lungs clear bilaterally, normal air movement was noted. Heart exam notable for regular rhythm, normal sounds and absence of murmurs, rubs or gallops. Abdomen unremarkable and without evidence of organomegaly, masses, or abdominal aortic enlargement. Bowel sounds are present, abdomen is not distended. Extremities nonedematous, no cyanosis was noted, no clubbing was noted. Neuro: Cranial nerves II through XII are grossly intact, no focal motor deficits were noted, sensation to light touch and pinprick intact, motor exam 5/5 throughout. Psych: Patient is alert and oriented x3, he does not appear anxious or depressed, he does not appear agitated. I talked with the patient and his who was present in the ER at the time my examination, patient had been given Ativan in the emergency room as well as morphine and IM Depo-Medrol, he continues to have severe pain in his left leg and left buttocks area, the decision was made to place him into observation status and have an MRI performed on his lumbar spine. I also talked to him and his about having pain management see him during his hospitalization for a possible epidural injection or nerve block-patient and patient's was okay with this. Patient will be placed in observation status on MedSurg three, he will be placed on IV Decadron 4 mg every 6 hours, he will be given gabapentin 400 mg three times a day and he will be given IV morphine every 3 hours as needed for pain. I have reviewed Mita Cifuentes's history and physical including her medical assessment and plan of care and endorse it. Visit Charges OBSV E&M: [id number] Initial observation care L3
[2021-06-02] MEDS: morphine 8 MG/ML Syringe 6 MG IV (16:42)
--- NOTE | 2021-06-02 17:03 | MRI_ITS ---
STUDY: MR Spine Lumbar W/O Contrast 06/02/2021 8:14 PM REASON FOR EXAM: Male, 45 years old. Back pain left leg radiculopathy TECHNIQUE: MR Spine Lumbar W/O Contrast Standardized fat and water weighted pulse sequences were obtained. COMPARISON: None FINDINGS: Normal lumbar lordosis. There is no substantial scoliosis. Normal conus medullaris that terminates at the L1. L1-2: Loss of intervertebral disc height. There is endplate spondylosis of the vertebral body. Normal central canal and intervertebral neuroforamina. There is bilateral facet arthropathy. L2-3: Loss of intervertebral disc height. There is endplate spondylosis of the vertebral body. Normal central canal and intervertebral neuroforamina. There is bilateral facet arthropathy. L3-4: Loss of intervertebral disc height. There is endplate spondylosis of the vertebral body. Bilateral neural foraminal stenosis. Compression of exiting nerve roots. There is bilateral facet arthropathy. . There is bilateral ligamentum flavum thickening. Central disc protrusion. L4-5: Loss of intervertebral disc height. There is endplate spondylosis of the vertebral body. Bilateral neural foraminal stenosis. Compression of exiting nerve roots. There is bilateral facet arthropathy. . There is bilateral ligamentum flavum thickening. Central disc protrusion. L5-S1: Normal endplates. Normal disc height and morphology. Normal central canal and intervertebral neuroforamina. Normal visualized sacral ala. Normal visualized paraspinous soft tissue structures. MRI/Spine Lumbar (Routine) IMPRESSION: Multilevel degenerative changes, as described above. Central disc herniation at L3-4 and L4-5. Electronically Signed: Sudarshan Alexander MD at 20:35 EST , Service support ,
[2021-06-02] MEDS: dexAMETHasone 4 MG/ML Vial IV ×2 (20:35→23:36)
[2021-06-02] MEDS: 0.9% Saline Lock 10 ML Syringe IV ×2 (20:35→23:40)
[2021-06-02] MEDS: Gabapentin 400 MG Capsule PO (20:35)
[2021-06-02] MEDS: tiZANidine HCl 2 MG Tablet PO (21:27)
[2021-06-03] VITALS (13 sets, daily range): BP systolic 112–146; BP diastolic 65–100; PULSE 74–96; RESP 16–18; TEMP 36.4–37.2; O2SAT 92–95; BMI 41.6
[2021-06-03] MEDS: Morphine 4 MG/ML Syringe IV ×4 (01:24→11:38)
[2021-06-03] MEDS: 0.9% Saline Lock 10 ML Syringe IV ×5 (01:25→11:38)
[2021-06-03] MEDS: tiZANidine HCl 2 MG Tablet PO ×2 (05:33→16:16)
[2021-06-03] MEDS: dexAMETHasone 4 MG/ML Vial IV ×3 (05:33→17:01)
[2021-06-03] MEDS: Gabapentin 400 MG Capsule PO ×2 (08:32→16:16)
--- NOTE | 2021-06-03 10:38 | CON.PCM.OR_ITS ---
HPI Consult Data Date of Consult: 06/03/21 HPI Narrative HPI Narrative: ELBA GEORGE, is a 45 M who presents low back pain radiating to the left lower extremity since . onset wa insidious and he denies any history of back surgeries. he describes aching in the left gluteal region radiating to the left anterior thigh that is worse with activity. he denies any acute numbness, tingling, weakness or changes in bowel or bladder function. [facility]LY [facility], [facility] Medical History (Updated 06/03/21 @ 10:[address] Elba Dale, DO) Carpal tunnel syndrome Fatty liver Hypertension Migraines CARMEL (obstructive sleep apnea) Home Medications lisinopril 40 mg PO DAILY 08/04/18 [History Last Taken 06/02/21] mometasone 2 inh INHALATION BID #1 ea 05/28/21 [Rx Last Taken 06/01/21] cetirizine [Zyrtec] 10 mg PO DAILY 06/02/21 [History Last Taken 06/02/21] diazepam 5 mg PO DAILY 06/02/21 [History Last Taken 06/02/21] methylprednisolone See Taper PO DAILY 06/02/21 [History Last Taken 06/02/21] naproxen 500 mg PO DAILY 06/02/21 [History Last Taken 06/02/21] Allergy/AdvReac Type Severity Reaction Status Date / Time No Known Allergies Allergy Verified 06/02/21 10:02 Family History Mother Heart disease Hypertension Kidney disease Father Heart disease Hypertension Kidney disease Surgical History H/O rhinoplasty S/p bilateral carpal tunnel release Social History household members: spouse Smoking Status: Never smoker alcohol intake: never substance use type: does not use Vital Signs Vital Signs Vital Signs: 06/02/21 11:32 06/02/21 13:00 06/02/21 14:25 Temperature Temperature Source Pulse Rate 94 94 Respiratory Rate 14 Respiratory Effort Respiratory Depth Respiratory Pattern Blood Pressure 127/85 H 152/95 H Blood Pressure Mean 99 114 Blood Pressure Source Blood Pressure Position Blood Pressure Location Pulse Ox 94 93 93 Oxygen Delivery Method Nasal Cannula Nasal Cannula Nasal Cannula Oxygen Flow Rate (L/min) 2 2 06/02/21 16:49 06/02/21 19:01 06/02/21 21:03 Temperature 97.9 F 98.0 F Temperature Source Oral Oral Pulse Rate 102 H 75 Respiratory Rate 16 18 Respiratory Effort Normal Non-Labored Respiratory Depth Normal Respiratory Pattern Normal Blood Pressure 160/94 H 150/91 H Blood Pressure Mean 116 110 Blood Pressure Source Monitor Blood Pressure Position Supine Blood Pressure Location Right Arm Pulse Ox 96 92 Oxygen Delivery Method Room Air Room Air Room Air Oxygen Flow Rate (L/min) 06/02/21 21:13 06/02/21 22:12 06/03/21 00:09 Temperature 98.2 F 98.1 F 97.5 F L Temperature Source Oral Oral Oral Pulse Rate 99 94 89 Respiratory Rate 18 12 16 Respiratory Effort Respiratory Depth Respiratory Pattern Blood Pressure 143/97 H 104/76 112/85 H Blood Pressure Mean 112 85 94 Blood Pressure Source Monitor Monitor Monitor Blood Pressure Position Semi-Fowlers Supine Supine Blood Pressure Location Left Arm Left Arm Left Arm Pulse Ox 90 92 93 Oxygen Delivery Method Room Air Nasal Cannula Nasal Cannula Oxygen Flow Rate (L/min) 2 3 06/03/21 03:09 06/03/21 03:13 06/03/21 07:18 Temperature 97.9 F Temperature Source Oral Pulse Rate 85 Respiratory Rate 18 Respiratory Effort Normal Respiratory Depth Respiratory Pattern Blood Pressure 126/91 H Blood Pressure Mean 102 Blood Pressure Source Monitor Blood Pressure Position Semi-Fowlers Blood Pressure Location Left Arm Pulse Ox 93 Oxygen Delivery Method Nasal Cannula Nasal Cannula Oxygen Flow Rate (L/min) 3 06/03/21 09:15 Temperature 98.9 F Temperature Source Oral Pulse Rate 78 Respiratory Rate 18 Respiratory Effort Respiratory Depth Respiratory Pattern Blood Pressure 132/99 H Blood Pressure Mean 110 Blood Pressure Source Monitor Blood Pressure Position Semi-Fowlers Blood Pressure Location Left Arm Pulse Ox 95 Oxygen Delivery Method Nasal Cannula Oxygen Flow Rate (L/min) 3 Weight Weight: 282 lb Body Mass Index (BMI) 41.6 Physical Exam Const alert and oriented x3 Nutritional Appearance: overweight Neck full ROM Resp normal respiratory effort Cardio Peripheral Pulses: pulses 2+ throughout GI non-tender and non-distended Back/Spine Back/Spine Narrative: discomfort with movement Cervical Spine: cervical ROM normal Thoracic Spine / Upper Back: normal to inspection Lumbar Spine / Lower Back: normal to inspection Extremity normal to inspection, full ROM, normal capillary refill, no clubbing, cyanosis or edema and no calf tenderness Peripheral Pulses: Yes pulses 2+ throughout Skin no rashes or lesions noted Neuro CN's II-XII intact bilaterally, moves all extremities, no focal motor deficits and deep tendon reflexes 2+ bilaterally Neuro Narrative: reports mild decreased sensation in the left toes. left straight leg raise positive for pain in the left buttock Motor Exam: strength 5/5 throughout and muscle tone normal throughout Lab / Micro Data Result Diagrams: 06/02/21 15:10 06/02/21 15:10 Labs: Laboratory Results - last 24 hr 06/02/21 15:10: WBC 10.6, RBC 4.92, Hgb 14.1, Hct 41.6, MCV 84.6, MCH 28.7, MCHC 33.9, RDW Std Deviation 39.6, RDW Coeff of Gamal 12.9, Plt Count 195, MPV 9.7, Immature Gran % (Auto) 0.600, Neut % (Auto) 87.4 H, Lymph % (Auto) 8.8 L, [place] % (Auto) 2.9, Eos % (Auto) 0.0, Baso % (Auto) 0.3, Absolute Neuts (auto) 9.3 H, Absolute Lymphs (auto) 0.93, Nucleated RBC % 0 06/02/21 15:10: Sodium 142, Potassium 4.2, Chloride 110 H, Carbon Dioxide 26.0, Anion Gap 6, BUN 21 H, Creatinine 0.88, Estim Creat Clear Calc 104.89, Est GFR (MDRD) Af Amer 120, Est GFR (MDRD) Non-Af 99, BUN/Creatinine Ratio 23.9 H, Glucose 136 H, Calcium 9.0, Total Bilirubin 1.00, AST 16, ALT 43, Alkaline Phosphatase 56, Total Protein 7.0, Albumin 3.4, Globulin 3.6, Albumin/Globulin Ratio 0.9 Radiology Impression Hip/Pelvis X-Ray 06/02/21 15:20 IMPRESSION: There are no acute findings. Electronically Signed: Sudarshan Alexander MD at 15:51 EST , Service support , Lumbar Spine X-Ray 06/02/21 15:20 IMPRESSION: Degenerative changes of the spine, as detailed above. Electronically Signed: Sudarshan Alexander MD at 15:51 EST , Service support , Lumbar Spine MRI 06/02/21 17:03 IMPRESSION: Multilevel degenerative changes, as described above. Central disc herniation at L3-4 and L4-5. Electronically Signed: Sudarshan Alexander MD at 20:35 EST , Service support , Assessment & Plan Assessment/Plan (1) Lumbar stenosis: PLAN: lumbar MRI reviewed showing degenerative changes at multiple levels with associated stenosis, most severe at L3-4 and L4-5. The patient is scheduled for an CHERYL bt Dr. Lynn today. Plan for pain control and mobilization as tolerated. Follow up with Dr. Dale in clinic upon discharge for further evaluation and treatment options.
[2021-06-03] MEDS: Lisinopril 40 MG Tablet PO (11:01)
--- NOTE | 2021-06-03 14:05 | RAD_ITS ---
STUDY: X-RAY - LUMBAR SPINE REASON FOR EXAM: Male, 45 years old. BLOCK, LUMBAR EPIDURAL L4-L5 TECHNIQUE: 1 view(s) of the lumbar spine were obtained. COMPARISON: None FINDINGS: Intraoperative imaging provided for L4-L5 epidural block. RAD/Spine 1 View Any Level IMPRESSION: Imaging provided for L4-L5 epidural block. Electronically Signed: Lon Ibarra MD at 15:22 EST , Service support ,
[2021-06-03] MEDS: Triamcinolone Acetonide 40 MG/ML Vial (14:14)
[2021-06-03] MEDS: Lidocaine 0.5% (50 ml) 50 ML Vial (14:15)
--- NOTE | 2021-06-03 15:38 | PCM.DC ---
Discharge Instructions Diet Discharge Diet: No restrictions Activity Discharge Activity: Return to Normal Activity Weight Bearing Status: Weight bearing as tolerated Dressing / Incision Call your doctor if you observe: Fever of 101 or Higher, Numbness or Tingling, Shortness of breath, Dizziness, Chest pain, Increased palpitations (irregular heartbeat) and Calf discomfort Follow Up Care Please Follow Up With: Primary care provider When: Within the next two weeks. Test Results: Test results from this visit will be discussed in further detail at your follow-up appointment, if applicable. Discharge Plan Admission Admit Date/Time: 06/02/21 16:55 Primary Reason for Your Visit: Lower back pain with LLE radiation Attending Provider: Tashia Paul Primary Care Provider: Rayshawn Adhikari Consulting Providers: Kajal Lynn ; Lewis Dale Instructions Additional Instructions / Restrictions: Do not take the naproxen if you are taking the Toradol. Make sure you take the Toradol and the steroids with food as this can cause gastritis. Discharge Orders/Prescriptions Prescriptions: New oxycodone 5 mg tablet 5 mg PO BID PRN (Reason: pain) 7 Days Qty: 14 RF: 0 Continued mometasone 220 mcg/ actuation (120) aerosol powdr breath activated 2 inh inhalation BID Qty: 1 RF: 6 lisinopril 40 MG tablet 40 mg PO DAILY RF: 0 methylprednisolone 4 mg tablets,dose pack See Taper mg PO DAILY RF: 0 naproxen 500 mg tablet 500 mg PO DAILY RF: 0 diazepam 5 mg tablet 5 mg PO DAILY RF: 0 cetirizine [Zyrtec] 10 mg Tablet 10 mg PO DAILY RF: 0 Referrals / Follow Up: Kajal Lynn MD [STAFF PHYSICIAN] - Within 2 Weeks Rayshawn Adhikari MD [Primary Care Provider] - 3-5 Days (Please discuss physical therapy referral) Lewis Dale DO [STAFF PHYSICIAN] - Within 2 Weeks Disposition Disposition (needs filled in before D/C Order can be placed): Home, Self Care
--- NOTE | 2021-06-03 15:53 | PCM.DC.SUM ---
Documented by User: Archie ODONNELL 06/03/21 16:00 Providers Date of Admission: 06/02/21 Primary Care Physician: Dr. Rayshawn Adhikari MD Consultations 06/02/21 18:37 Consult: Pain Management Routine Consulting Provider: Kajal Lynn Reason for Consult: left leg radiculopathy EMERGENT Consult: No MD Notified: Yes Date Notified: 06/02/21 Time Notified: 18:39 Method of Notification: Verbal 06/03/21 07:19 Consult: Orthopedics Routine Consulting Provider: Lewis Dale Reason for Consult: Disc herniation and intracable pain EMERGENT Consult: No MD Notified: Yes Date Notified: 06/03/21 Time Notified: 07:19 Method of Notification: Text Reason For Visit: LEFT SCIATICA Diagnosis Discharge Diagnosis (1) Lumbar stenosis: Status: Acute Code(s): M48.061 - Spinal stenosis, lumbar region without neurogenic claudication Medications at Discharge Home Medications lisinopril 40 mg PO DAILY 08/04/18 mometasone 2 inh INHALATION BID #1 ea 05/28/21 cetirizine [Zyrtec] 10 mg PO DAILY 06/02/21 diazepam 5 mg PO DAILY 06/02/21 methylprednisolone See Taper PO DAILY 06/02/21 naproxen 500 mg PO DAILY 06/02/21 meloxicam [Mobic] 7.5 mg PO DAILY #14 tab 06/03/21 oxycodone 5 mg PO BID PRN 3 Days #6 tab 06/03/21 tizanidine [Zanaflex] 2 mg PO Q8H PRN #42 cap 06/03/21 Hospital Course Procedures 2-D Echocardiogram and Transthoracic echo Summary of Care Provided Minutes Spent on Discharge: 35 Hospital Course: Disposition: Patient to discharge home with outpatient orthopedic and pain management follow-up. 1) lumbar stenosis Lumbar MRI obtained in the ED demonstrated degenerative change at multiple levels with stenosis, most severe at L3-L5. Patient received an epidural spine injection from Dr. Lynn while admitted. Patient report significant improvement in his pain status post spine injection and believes he is safe enough to return home. Patient is to follow-up with Dr. Lynn and Dr. Dale within the next 2 weeks for outpatient management. Oxycodone x1 week as needed twice daily given on discharge. 2) HTN Stable, continue lisinopril. 3) asthma Continue mometasone. Patient seen by Archie Darby PA-C, under the supervision of Dr. Paul. Physical Exam Narrative Patient is a 45-year-old male comfortably resting in bed, alert and orient x3. Patient reports that lower back pain and left lower extremity pain are significantly improved after epidural spine injection. Denies development of any new symptoms overnight and endorses being able to defecate and urinate on his own. No longer appears in acute distress. Const alert, oriented x3 and no apparent distress HEENT normocephalic, head/scalp atraumatic and hearing grossly normal bilaterally Eyes PERRL, EOMs intact bilaterally and conjunctivae normal Neck no lymphadenopathy, supple and no JVD Resp normal respiratory effort, no retractions, no use of accessory muscles and clear to auscultation bilaterally Cardio regular rate, regular rhythm, no murmurs and no JVD GI normal to inspection, nondistended, normoactive bowel sounds, soft to palpation and non-tender Extremity normal to inspection, full ROM and no clubbing, cyanosis or edema Skin no rashes or lesions noted, no wounds and skin turgor normal Neuro CN's II-XII intact bilaterally Psych affect normal Weight / BMI Weight Weight: 282 lb Body Mass Index (BMI) 41.6 ABG / Lab / Microbiology Data Result Diagrams: 06/02/21 15:10 06/02/21 15:10 Microbiology: Microbiology 06/03/21 10:50 Nasal Secretion SARS-CoV-2 Antigen (Rapid) - Final Radiography Diagnostic Testing: Radiology Impression Lumbar Spine X-Ray 06/02/21 15:20 IMPRESSION: Degenerative changes of the spine, as detailed above. Electronically Signed: Sudarshan Alexander MD at 15:51 EST , Service support , Lumbar Spine MRI 06/02/21 17:03 IMPRESSION: Multilevel degenerative changes, as described above. Central disc herniation at L3-4 and L4-5. Electronically Signed: Sudarshan Alexander MD at 20:35 EST , Service support , Spine X-Ray 06/03/21 14:05 IMPRESSION: Imaging provided for L4-L5 epidural block. Electronically Signed: Lon Ibarra MD at 15:22 EST , Service support , D/C Instructions Discharge Diet: No restrictions Weight Bearing Status: Weight bearing as tolerated Call your doctor if you observe: Fever of 101 or Higher, Numbness or Tingling, Shortness of breath, Dizziness, Chest pain, Increased palpitations (irregular heartbeat) and Calf discomfort Please Follow Up With: Primary care provider When: Within the next two weeks. Meaningful Use Info Meaningful Use Diagnoses (Choose all that apply): None applicable Discharge Plan Admission Admit Date/Time: 06/02/21 16:55 Primary Reason for Your Visit: Lower back pain with LLE radiation Attending Provider: Tashia Paul Primary Care Provider: Rayshawn Adhikari Consulting Providers: Kajal Lynn ; Lewis Dale Instructions Additional Instructions / Restrictions: Do not take the naproxen if you are taking the Toradol. Make sure you take the Toradol and the steroids with food as this can cause gastritis. Discharge Orders/Prescriptions Prescriptions: New oxycodone 5 mg tablet 5 mg PO BID PRN (Reason: pain) 3 Days Qty: 6 RF: 0 meloxicam [Mobic] 7.5 mg tablet 7.5 mg PO DAILY Qty: 14 RF: 0 tizanidine [Zanaflex] 2 mg capsule 2 mg PO Q8H PRN (Reason: muscle spasticity) Qty: 42 RF: 0 Continued mometasone 220 mcg/ actuation (120) aerosol powdr breath activated 2 inh inhalation BID Qty: 1 RF: 6 lisinopril 40 MG tablet 40 mg PO DAILY RF: 0 methylprednisolone 4 mg tablets,dose pack See Taper mg PO DAILY RF: 0 naproxen 500 mg tablet 500 mg PO DAILY RF: 0 diazepam 5 mg tablet 5 mg PO DAILY RF: 0 cetirizine [Zyrtec] 10 mg Tablet 10 mg PO DAILY RF: 0 Referrals / Follow Up: Kajal Lynn MD [STAFF PHYSICIAN] - Within 2 Weeks Rayshawn Adhikari MD [Primary Care Provider] - 3-5 Days (Please discuss physical therapy referral) Lewis Dale DO [STAFF PHYSICIAN] - Within 2 Weeks Disposition Disposition (needs filled in before D/C Order can be placed): Home, Self Care Documented by User: Dr. Tashia Pual DO 06/03/21 16:50 Providers Date of Admission: 06/02/21 Reason For Visit: LEFT SCIATICA Medications at Discharge Home Medications lisinopril 40 mg PO DAILY 08/04/18 mometasone 2 inh INHALATION BID #1 ea 05/28/21 cetirizine [Zyrtec] 10 mg PO DAILY 06/02/21 diazepam 5 mg PO DAILY 06/02/21 methylprednisolone See Taper PO DAILY 06/02/21 naproxen 500 mg PO DAILY 06/02/21 meloxicam [Mobic] 7.5 mg PO DAILY #14 tab 06/03/21 oxycodone 5 mg PO BID PRN 3 Days #6 tab 06/03/21 tizanidine [Zanaflex] 2 mg PO Q8H PRN #42 cap 06/03/21 Hospital Course Procedures - (Spinal injection from pain management) Summary of Care Provided Minutes Spent on Discharge: 28 Hospital Course: Mr. Dugan is a 45-year-old white male who presented to the emergency department at [facility] on 06/02/2021 with the chief complaint of intractable low back pain and left lower extremity radicular pain. The patient reports that he has had back pain for several weeks for which she has been seeing a chiropractor but on Monday of last week the pain began to get sharp and started shooting down his left leg. He had a manipulation and was able to play golf on Monday but Monday he had got markedly worse and stated he was so locked up that he was not able to move. When it did not resolve by Monday he decided to present to the emergency department. He complains of left-sided low back pain with radicular symptoms into his left lower extremity into the anterior thigh, groin, and the lateral leg all the way down to his foot. He denies any tingling or numbness. He states he has weakness in that leg and has given away on him but reports this may be more related to pain than actual strength. He had been treated with a Medrol Dosepak. In the emergency department he received 4 mg of morphine, Ativan, Toradol and, Zofran. His laboratory data was negative on admission and his lumbar spine x-ray showed multilevel spondylosis with degenerative disc disease. He was unfortunately unable to ambulate more than 2 steps and was therefore admitted for intractable low back pain. He was admitted to the medical floor and placed on morphine and gabapentin as well as Zanaflex. Pain management was consulted and an MRI was ordered. His MRI showed multilevel degenerative changes as well as a central disc herniation at L3-L4 and L4-L5. Along with pain management orthopedics was consulted. He was taken for an injection on 06/03/[address] Sandra and had excellent results with significant pain relief and was able to be discharged home with Mobic, short course of narcotics, and Zanaflex with instructed follow-up to Dr. Lynn's office in 2 weeks. He was also to follow-up with Dr. Dale in the clinic upon discharge for further evaluation and treatment options. He was discharged home in stable condition on 06/03/2021. Discharge diagnoses: Intractable low back pain Hypertension Obstructive sleep apnea Asthma Physical Exam Const alert, oriented x3, no apparent distress and average body habitus Constitutional Narrative: Morbidly obese middle-aged white male lying flat on his back in bed, appears comfortable at this time and nontoxic, very pleasant General Appearance: cooperative, comfortable, well kempt and well developed Orientation / Consciousness: awake Exam Limitations: no limitations Nutritional Appearance: morbidly obese HEENT normocephalic, head/scalp atraumatic, hearing grossly normal bilaterally and moist oral mucous membranes Resp normal respiratory effort, no retractions, no use of accessory muscles and clear to auscultation bilaterally Auscultation: Negative for crackles, rales, rhonchi or wheezes Cardio regular rate, regular rhythm, S1 normal heart sound, S2 normal heart sound, no murmurs, no rub, no gallops, no clicks and no JVD GI normal to inspection, nondistended, normoactive bowel sounds, soft to palpation, non-tender and non-distended Extremity no clubbing, cyanosis or edema Neuro oriented x3, CN's II-XII intact bilaterally, moves all extremities and no focal motor deficits Neuro Narrative: Bilateral lower extremity reflexes normal, strength exam limited secondary to left lower extremity pain, sensation normal bilateral lower extremities Sensorium / Orientation: awake and alert ABG / Lab / Microbiology Data Result Diagrams: 06/02/21 15:10 06/02/21 15:10 Discharge Plan Admission Admit Date/Time: 06/02/21 16:55 Primary Reason for Your Visit: Lower back pain with LLE radiation Attending Provider: Tashia Paul Primary Care Provider: Rayshawn Adhikari Consulting Providers: Kajal Lynn ; Lewis Dale Instructions Additional Instructions / Restrictions: Do not take the naproxen if you are taking the Toradol. Make sure you take the Toradol and the steroids with food as this can cause gastritis. Discharge Orders/Prescriptions Prescriptions: New oxycodone 5 mg tablet 5 mg PO BID PRN (Reason: pain) 3 Days Qty: 6 RF: 0 meloxicam [Mobic] 7.5 mg tablet 7.5 mg PO DAILY Qty: 14 RF: 0 tizanidine [Zanaflex] 2 mg capsule 2 mg PO Q8H PRN (Reason: muscle spasticity) Qty: 42 RF: 0 Continued mometasone 220 mcg/ actuation (120) aerosol powdr breath activated 2 inh inhalation BID Qty: 1 RF: 6 lisinopril 40 MG tablet 40 mg PO DAILY RF: 0 methylprednisolone 4 mg tablets,dose pack See Taper mg PO DAILY RF: 0 naproxen 500 mg tablet 500 mg PO DAILY RF: 0 diazepam 5 mg tablet 5 mg PO DAILY RF: 0 cetirizine [Zyrtec] 10 mg Tablet 10 mg PO DAILY RF: 0 Referrals / Follow Up: Kajal Lynn MD [STAFF PHYSICIAN] - Within 2 Weeks Rayshawn Adhikari MD [Primary Care Provider] - 3-5 Days (Please discuss physical therapy referral) Lewis Dale DO [STAFF PHYSICIAN] - Within 2 Weeks Disposition Disposition (needs filled in before D/C Order can be placed): Home, Self Care Charges/Coding Visit Charges Inpatient E&M: 85315 Disch Hosp
--- NOTE | 2021-06-03 15:57 | NURSING ---
Pt up and ambulated with standby assist to the bathroom and voids. Regular diet orderd.
--- NOTE | 2021-06-03 16:11 | CASEMGMT ---
[facility] NOTE: Pt being discharged home. PT/OT have been in to see pt. CROW STEWARD informed pt will need walker. CROW STEWARD to room to talk w/pt and , who is at bedside. Introduced self and role of CROW STEWARD. Per pt and , plan is for pt to follow up w/Dr Dale @ his office [facility] and he will set up OP therapy at that time. Pt also to f/u w/Dr Lynn in 2 weeks. Pt/ confirm pt will need a walker at d/c. They deny having any other discharge planning needs or concerns. Pt has O2 thru [employer] already and they state would like to get walker from [employer]. TC to [facility]. They are out of walkers and will not be able to get one until tomorrow. TC to both [facility] and [facility]. Neither place will be able to deliver walker to pt today. TC to [facility] She states w/pt's insurance, [place], coverage would have to go through verification process and this can not be completed today. She does have walkers available and she will be available until 4:30 PM today if pt's would be able to pick it up today. She suggests pay for walker [id number] today (cost $49.99), keep the receipt, and submit receipt and script for walker to pt's insurance for reiimbursement. Pt/ made aware of all of the above and are agreeable to picking up walker today and paying [id number]. 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 Script obtained for [facility]WW and given to pt. Jass GONZALEZ RN, CM
== END 2021-06-03 17:45 | disposition home or self-care (01) ==
LOC: ED 15:02 → MS3 17:18
PROVIDERS: Anesthesiology Pain Medicine; Admitting Provider Internal Medicine; Emergency Provider Emergency Medicine; PCP Family Medicine; Visit Provider Internal Medicine
PROC: 3E0S3BZ Introduction of Anesthetic Agent into Epidural Space, Percutaneous Approach (ICD-10-PCS; CPT 62322; principal; 2021-06-03 12:55)
DX: M48.061 Spinal stenosis, lumbar region without neurogenic claudication (principal); M51.16 Intervertebral disc disorders with radiculopathy, lumbar region; G47.33 Obstructive sleep apnea (adult) (pediatric); I10 Essential (primary) hypertension; J45.909 Unspecified asthma, uncomplicated; E66.9 Obesity, unspecified; K76.0 Fatty (change of) liver, not elsewhere classified; Z79.899 Other long term (current) drug therapy; Z79.51 Long term (current) use of inhaled steroids; Z86.16 Personal history of COVID-19; Z68.41 Body mass index [BMI] 40.0-44.9, adult
CPT/HCPCS: 01992; 62323; 64483; 72020; 72100; 72148; 73502; 80053; 85025; 87426; 96372; 96374; 96375; 96376; 97161; 99218; 99285; J7030; A4216; G0378; J2405

== ENCOUNTER → 2022-06-10 | Outpatient (CLI) | payer BC, SELFPAY ==
--- NOTE | 2022-06-10 12:50 | RAD_ITS ---
EXAM: XR CHEST, 2 VIEWS CLINICAL INDICATION: Dyspnea TECHNIQUE: Frontal and lateral views of the chest. This report was created using [employer] report generation technology. COMPARISON: None. FINDINGS: LUNGS AND PLEURAL SPACES: Unremarkable. No consolidation or edema. No pneumothorax. No effusion. HEART: Unremarkable. Cardiac silhouette not enlarged. MEDIASTINUM: Central airways and mediastinal contour are unremarkable. BONES/JOINTS: Unremarkable. SOFT TISSUES: Unremarkable. RAD/Chest PA and Lateral IMPRESSION: No radiographic evidence of acute cardiopulmonary disease. Electronically Signed: Kanu Calvillo MD at 9:43 EST ,
[2022-06-10 13:51] LABS: Absolute Lymphocyte Count 1.98 X10^3/uL (0.83-4.51); Absolute Neutrophil Count 3.8 X10^3/uL (2.0-7.7); Basophil# 0.04 X10^3/uL; Basophil% 0.6 % (0-1); Eosinophil# 0.32 X10^3/uL; Eosinophils% 4.6 % (0-5); Hematocrit 46.1 % (40-54); Hemoglobin 15.4 g/dL (13.0-16.5); Lymphocyte # 1.98 X10^3/ul (0.83-4.51); Lymphocyte % 28.6 % (19-41); Mean Corp Hgb Conc 33.4 g/dL (32-36); Mean Corpuscular Hgb 28.7 pg (27.0-32.0); Mean Platelet Vol. 9.9 fl (6.2-12.0); Monocyte# 0.75 X10^3/uL; Monocyte% 10.8 % (0-10); NRBC Flagged by Analyzer 0 % (0-5); Neutrophil # 3.82 X10^3/uL (2.7-7.7); Neutrophil % 55.3 % (47-70); Platelet Count 251 K/mm3 (150-450); RBC Distribution Width CV 12.6 % (11.6-14.6); RBC Distribution Width SD 39.1 fl (35.1-43.9); Red Blood Count 5.36 M/mm3 (4.6-6.2); White Blood Count 6.9 K/mm3 (4.4-11.0)
[2022-06-10 14:00] LABS: Partial Thromboplast Time 29.1 Seconds (24.1-36.2); Prothrombin Time (Protime)PT. 13.3 SECONDS (11.7-14.9)
[2022-06-10 14:21] LABS: Anion Gap 5 (5-15); BUN 22 mg/dL (7-18); BUN/Creat Ratio 23.9 RATIO (10-20); Calcium,Total 9.6 mg/dL (8.5-10.1); Chloride 107 mmol/L (98-107); Creatinine, Serum 0.92 mg/dL (0.70-1.30); EST Glomerular Filtration Rate 93 mL/min (>60); Est Glom Filt Rate - Afr Amer 113 mL/min (>60); Glucose 94 mg/dL (74-106); Potassium 4.2 mmol/L (3.5-5.1); Sodium Level 142 mmol/L (136-145)
== END | disposition home or self-care (01) ==
LOC: RAD 12:49
PROVIDERS: PCP Family Medicine; Referring Provider Internal Medicine Cardiovascular Disease; Visit Provider Internal Medicine Cardiovascular Disease
DX: R06.00 Dyspnea, unspecified (principal); I20.0 Unstable angina; R01.1 Cardiac murmur, unspecified; G47.33 Obstructive sleep apnea (adult) (pediatric); I10 Essential (primary) hypertension
CPT/HCPCS: 36415; 71046; 80048; 85025; 85610; 85730

== ENCOUNTER → 2022-06-17 | Outpatient (CLI) | payer BC, SELFPAY ==
--- NOTE | 2022-06-17 08:47 | ECHOCS_ITS ---
Version 2 Reason For Study: Chest Pain Procedure This was a 2D Doppler, Color Flow transthoracic echocardiogram. The study was technically difficult. Contrast injection was performed. Exam performed in department. Left Ventricle Normal LV size. Moderate concentric left ventricular hypertrophy. Left ventricular systolic function is normal. The estimated ejection fraction is 60 %. No evidence for diastolic dysfunction. No regional wall motion abnormalities noted. Right Ventricle Normal RV size. Normal systolic function. Atria Normal left atrium. Normal right atrium. No doppler evidence for ASD. Mitral Valve There is no mitral annular calcification. Mild diffuse mitral valve thickening. Trivial mitral valve insufficiency. Tricuspid Valve Normal tricuspid valve. Aortic Valve The aortic valve leaflets are not well visualized and thus a bicuspid aortic valve cannot be excluded, however, based upon the 2D echocardiographic images obtained there appears to be moderate diffuse thickening, calcification, and partial restriction. Severe aortic stenosis. Pulmonic Valve The pulmonic valve is not well visualized. Great Vessels Normal sized aortic root. Pericardium/Pleural No pericardial effusion. Medication 20 gauge I.V. with prn adaptor inserted into right arm. Diluted definity 1ml given slow IV push to enhance endocardial definition. MMode/2D Measurements & Calculations LVIDd: 5.3 cm IVSd: 1.6 cm LVOT diam: 2.0 cm LVIDs: 3.3 cm LVPWd: 1.4 cm RVDd: 3.5 cm FS: 38.7 % LVOT area: 3.1 cm2 Ao root diam: 3.4 cm LAV(MOD-bp): 54.0 ml LA A4 area: 18.4 cm2 ACS: 0.70 cm LAV(MOD-bp) Indexed: 22.7 ml/m2 LA dimension: 4.1 cm LAV(MOD-sp2): 52.0 ml LAV(MOD-sp4): 48.9 ml RA A4 area: 15.0 cm2 Time Measurements MV dec time: 0.25 sec Doppler Measurements & Calculations MV E max nathan: 87.2 cm/sec Lat Peak E' Nathan: 6.9 cm/sec Med Peak E' Nathan: 7.3 cm/sec MV A max nathan: 84.5 cm/sec E/E' lat: 12.7 E/E' med: 11.9 MV E/A: 1.0 MV V2 max: 90.8 cm/sec MV P1/2t max nathan: 93.9 cm/sec Ao V2 max: 424.7 cm/sec MV max P.3 mmHg MV P1/2t: 82.3 msec Ao max P.3 mmHg MV V2 mean: 52.8 cm/sec MV dec slope: 334.2 cm/sec2 Ao V2 mean: 322.4 cm/sec MV mean P.3 mmHg Ao mean P.6 mmHg MV V2 VTI: 26.9 cm MVA(P1/2t): 2.7 cm2 Ao V2 VTI: 94.8 cm MVA(VTI): 2.5 cm2 SALVATORE(I,D): 0.72 cm2 SALVATORE(V,D): 0.75 cm2 LV V1 max: 103.4 cm/sec SV(LVOT): 67.8 ml PA V2 max: 126.5 cm/sec LV V1 max P.3 mmHg LV V1 mean P.1 mmHg LV V1 mean: 66.9 cm/sec LV V1 VTI: 21.9 cm ECHO/Echo Complete W/ Contrast Interpretation Summary The study was technically difficult. Contrast injection was performed. Left ventricular systolic function is normal. The estimated ejection fraction is 60 %. Moderate concentric left ventricular hypertrophy. Mild diffuse mitral valve thickening. Trivial mitral valve insufficiency. The aortic valve leaflets are not well visualized and thus a bicuspid aortic va lve cannot be excluded, however, based upon the 2D echocardiographic images obtained there ap pears to be moderate diffuse thickening, calcification, and partial restriction. Severe aortic stenosis. No evidence for diastolic dysfunction. Ordering Physician: Blayne Hayes Referring Physician: Rayshawn Adhikari Performed By: Jayson Mercer RCS
== END | disposition home or self-care (01) ==
PROVIDERS: PCP Family Medicine; Visit Provider Internal Medicine Cardiovascular Disease
DX: R07.9 Chest pain, unspecified (principal); R01.1 Cardiac murmur, unspecified
CPT/HCPCS: 93306; Q9957; A4216; C8929

== ENCOUNTER 2022-06-21 08:29 | Day surgery (SDC) | payer BC, SELFPAY ==
--- NOTE | 2022-06-10 16:33 | PCM.HP.BLA ---
History and Physical Date of Admission: 06/21/22 [facility] [address] [place] [address] Name:ELBA MCCLURE : 1975 ?Provider: Dr. Blayne Hayes MD Age/Sex:? 46/M HPI HPI History of Present Illness Surgical H&P: Yes Details: This is a 46-year white male who presents today for outpatient cardiovascular consultation based upon concerns of symptoms concerning for worsening angina pectoris, dyspnea on exertion, a cardiac murmur, superimposed upon a history of hypertension and COVID-19 (2020).? He states since the COVID-19 exposure he has had, over the last few months , he has been noticing worsening chest discomfort with exertion such as going up stairs or going up an incline.? He states he will get a burning sensation as he places his fist over his sternal area.? He becomes short of breath and dyspneic and potentially somewhat diaphoretic.? He states after he stops and rests he will feel better.? He does not have the symptoms radiating to his neck, shoulder, or upper extremities.? There is no associated nausea or emesis.? The symptoms do not occur at rest or at night. He also states that he was told at a young age she had a cardiac murmur.? He remembers undergoing an echocardiogram in age 10.? To the best of his knowledge there was no follow-up after that. He has been evaluated by pulmonology based upon his history and his symptoms.? Thus far he states his pulmonary evaluation has been unremarkable.? Thus he was referred to cardiology for further evaluation. He did have lipid labs performed on 10-10-2020.? At that time his total cholesterol was 98 with an LDL of 47 and an HDL of 31.? His triglycerides were 117. It appears in April 2021 he had an ECG.? At that time he had sinus tachycardia with nonspecific ST and T wave abnormality. He had an ECG today in the office at which time he had sinus rhythm with nonspecific T wave. Intake Vital Signs ? 06/10/2211:21 06/10/2211:27 Height 5 ft 9.5 in 5 ft 9 in Weight: ? 278 lb 5 oz BMI ? 41.1 BP ? 108/70 Blood Pressure Location ? Lt brachial Position ? Sitting Respiration ? 16 Pulse ? 84 Pulse Source ? Auscultation Intake Visit Reasons:?SOB/REF. [employer] Required: No Accompanied by: Self Allergies formoterol [From Dulera] Adverse Reaction (Unknown, Verified 06/10/22 11:27) Headachemometasone furoate [From Asmanex Twisthaler] Adverse Reaction (Unknown, Verified 06/10/22 11:27) Mouth Sores Medications lisinopril 40 mg tablet 40 mg PO DAILY 08/04/18 [History Confirmed 06/10/22] cholecalciferol (vitamin D3) 125 mcg (5,000 unit) capsule 125 mcg PO DAILY 12/10/21 [History Confirmed 06/10/22] fexofenadine 180 mg tablet (Dori Allergy) 180 mg PO DAILY 12/10/21 [History Confirmed 06/10/22] albuterol sulfate 90 mcg/actuation aerosol inhaler 2 puff inhalation Q4H PRN shortness of breath or wheezing #8.5 grams 01/28/22 [Rx Confirmed 06/10/22] aspirin 81 mg tablet,delayed release 81 mg PO DAILY #1 TAB 06/10/22 [Rx Confirmed 06/10/22] isosorbide mononitrate 30 mg tablet,extended release 24 hr 30 mg PO DAILY #30 tabs 06/10/22 [Rx Confirmed 06/10/22] PFSH Medical History?(Updated 06/10/22 @ 12:[address] Blayne Hayes MD) Anal fissure Arthritis Asthma Blood in stool BRBPR (bright red blood per rectum) Cardiac murmur Carpal tunnel syndrome Chest pain COVID-19 Essential hypertension Fatty liver Heart murmur History of back problems Hypertension Lumbar stenosis Migraines Obesity CARMEL (obstructive sleep apnea) Pneumonia Pneumonia due to COVID-19 virus Sciatica Surgical History? H/O rhinoplasty S/p bilateral carpal tunnel release Family History? Mother Hypertension Kidney diseaseFather Hypertension Kidney disease CAD (coronary artery disease) History of coronary artery bypass surgeryGrandfather DiabetesGrandmother Diabetes Social History? household members:? spouse Smoking Status:? Never smoker alcohol intake:? never substance use type:? does not use caffeine:? No ROS Const Const: Positive for fatigue (continues since COVID); Negative for weakness, body ache, fever(s), headache(s), chills, frequent falls, night sweats, daytime sleepiness, difficulty sleeping, excessive sweating, weight gain, weight loss, increased appetite, poor appetite, anorexia or other Eyes Eyes: Negative for blurry vision or double vision ENT ENT: Negative for headache(s), dizziness or balance problems Cardio Chest Pain: Yes (since COVID infection x1 year ago) Character: sharp (burning) Onset: exercise (going uphill/stairs, exacerbated with cold air) Location: mid sternal Duration: brief Relieving: rest (take deep breaths) Palpitations: Yes (with chest discomfort) feels like its: pounding Edema: None Muscle aches with walking: None Resp Respiratory: Positive for SOB with activity (New since COVID infection x1 year ago); Negative for SOB at rest, SOB orthopnea\SOB lying down, Cough, Coughing up blood/hemoptysis, chest congestion, pain on inspiration, snoring, stridor, wheezing, crackles, paroxysmal nocturnal dyspnea or other Musc Musc: Negative for muscle aches/ myalgia, muscle weakness, joint pain or balance problems Neuro Neuro: Negative for dizziness, lightheadedness, near syncope, syncope, orthostatic symptoms, frequent falls, headache(s), weakness, confusion, memory loss, restless legs, blurry vision, double vision, vertigo, seizures, lack of coordination or other Endo Endo: Positive for fatigue (continues since COVID); Negative for excessive sweating Cardiology Exam Const Appearance: cooperative, healthy appearing, comfortable, no acute distress, well developed and well groomed Nutritional Appearance: obese Orientation: alert, awake and oriented x3 Head Head: normal to inspection, normocephalic and atraumatic Ears: hearing grossly normal bilaterally Nose: external nose normal Face and Sinus: face symmetric Eyes Eyelids: eyelids normal Conjunctivae: conjunctivae normal Pupils: PERRL EOM: EOM intact bilaterally Neck Neck: normal visual inspection and full ROM Carotids: normal carotid upstroke Chest Chest inspection: normal inspection of the chest, symmetric chest movement and normal respiratory effort Auscultation: Bilateral: Clear to Auscultation Cardio Palpation: normal PMI Rate: regular rate Rhythm: regular rhythm Heart sounds: S1 normal, S2 normal and murmur Murmur: Grade 3/6, harsh, late systolic, LLSB, LVOT and sternal notch GI GI: normal to inspection, soft, bowel sounds present and obese Neuro General: patient alert, patient oriented x3, gait normal and moves all extremities Skin Skin: no rashes or lesions noted Extremities Pulses: Normal: Right Femoral Pulse, Left Femoral Pulse, Right Dorsalis Pedis Pulse, Left Dorsalis Pedis Pulse, Right Posterior Tibial Pulse, Left Posterior Tibial Pulse, Right Radial Pulse and Left Radial Pulse Lower Extremity Edema: None: Bilateral Psych Psychological: normal affect Supplemental Info Supplemental Information Labs: ?? ? No Data to Display Diagnostics: ?? ? Electrocardiogram ? Pulmonary: ?? ? Pulmonary Function Test ? Assessment and Plan Assessment and Plan (1) Worsening angina: ?Status:?Acute ?Plan: The patient describes symptoms concerning for worsening angina pectoris. At the moment he will be asked to initiate medical therapy with aspirin 81 mg p.o. daily and isosorbide mononitrate at 30 mg p.o. daily. He will be asked undergo further evaluation of his left ventricle with a transthoracic echocardiogram. He will also be asked undergo further evaluation of his coronary anatomy with a diagnostic cardiac catheterization. It was felt reasonable that the patient be considered, based upon his symptom description, etc., to proceed directly with evaluation with a diagnostic cardiac catheterization as opposed to an exercise tolerance test/imaging study initially. The cardiac catheterization procedure and risks were discussed with the patient.? He was agreeable to this approach. (2) Dyspnea: ?Status:?Acute ?Plan: The patient will undergo further evaluation. This include laboratory studies, a chest x-ray, and echocardiogram, as well as the aforementioned diagnostic cardiac catheterization. (3) Essential hypertension: ?Status:?Acute ?Plan: The patient's blood pressure appears to be reasonly well controlled at this time. He will continue medical therapy. (4) Cardiac murmur: ?Status:?Acute ?Plan: The patient does have a cardiac murmur. His previous echocardiogram from age 10 is unavailable for review. He will have a follow-up echocardiogram to assess his valvular anatomy and physiology and his ventricular anatomy and physiology. Depending upon the findings, if the patient has underlying valvular heart disease, this may also be contributing to his symptoms especially with concerns of his shortness of breath and dyspnea. (5) CARMEL (obstructive sleep apnea): ?Status:?Acute ?Plan: The patient has a history of CARMEL listed in his past medical history. He will continue evaluation care per his other physicians for this as deemed appropriate. ? ? ? Orders: Orders 12 Lead EKG performed by [facility] Today I10 - Essential (primary) hypertension, R06.00 - Dyspnea, unspecified, R07.9 - Chest pain, unspecified ? Left Heart Cath/COR/LV Percut Today G47.33 - Obstructive sleep apnea (adult) (pediatric), I10 - Essential (primary) hypertension, I20.0 - Unstable angina, R01.1 - Cardiac murmur, unspecified, R06.00 - Dyspnea, unspecified ? Basic Metabolic Profile (BMP) Today G47.33 - Obstructive sleep apnea (adult) (pediatric), I10 - Essential (primary) hypertension, I20.0 - Unstable angina, R01.1 - Cardiac murmur, unspecified, R06.00 - Dyspnea, unspecified ? Partial Thromboplast Time Today G47.33 - Obstructive sleep apnea (adult) (pediatric), I10 - Essential (primary) hypertension, I20.0 - Unstable angina, R01.1 - Cardiac murmur, unspecified, R06.00 - Dyspnea, unspecified ? Prothrombin Time w/INR Today G47.33 - Obstructive sleep apnea (adult) (pediatric), I10 - Essential (primary) hypertension, I20.0 - Unstable angina, R01.1 - Cardiac murmur, unspecified, R06.00 - Dyspnea, unspecified ? Echo Complete Today G47.33 - Obstructive sleep apnea (adult) (pediatric), I10 - Essential (primary) hypertension, I20.0 - Unstable angina, R01.1 - Cardiac murmur, unspecified, R06.00 - Dyspnea, unspecified ? CBC W/Diff, Automated Today G47.33 - Obstructive sleep apnea (adult) (pediatric), I10 - Essential (primary) hypertension, I20.0 - Unstable angina, R01.1 - Cardiac murmur, unspecified, R06.00 - Dyspnea, unspecified ? Chest PA and Lateral Today G47.33 - Obstructive sleep apnea (adult) (pediatric), I10 - Essential (primary) hypertension, I20.0 - Unstable angina, R01.1 - Cardiac murmur, unspecified, R06.00 - Dyspnea, unspecified ? Medications: New aspirin 81 mg? PO DAILY 1 TAB 0RF ? ? isosorbide mononitrate ER 30 mg? PO DAILY 30 tabs 3RF ? ? isosorbide mononitrate ER 30 mg? PO DAILY 30 tabs 3RF ? ? Plan Details Additional Comments: The above was discussed with the patient he was agreeable to this approach Thank you for allowing me to participate in the care of your patient.? Please don't hesitate to call if any issues arise. This note was generated using a voice recognition system and there may be incorrect words, spelling or punctuation that were not noted when reviewing the office note prior to saving. Follow Up: ? ? 3 Months (PFM ) COVID (Procedure Consent) Procedure Criteria Procedure Criteria: Yes Elective The surgeon/proceduralist and patient have discussed in detail the risk of exposure to and/or potential harm posed by the COVID-19 virus with having a surgery/procedure at this time versus the risk of? delaying the surgery/procedure. It is not possible to know either the risk of delaying the surgery or procedure or chance of getting an infection with perfect accuracy, but a joint decision was made between the patient and the surgeon/proceduralist ?to proceed at this time with the scheduled surgery/procedure as indicated on the consent form. Coding Level of Care Code Off vis,new,level 5 Diagnoses Worsening angina? I20.0 Dyspnea? R06.00 Essential hypertension? I10 Cardiac murmur? R01.1 CARMEL (obstructive sleep apnea)? G47.33 Coding Level of Care Code Off vis,new,level 5 Diagnoses Worsening angina? I20.0 Dyspnea? R06.00 Essential hypertension? I10 Cardiac murmur? R01.1 CARMEL (obstructive sleep apnea)? G47.33 Blayne Hayes MD CC:? ARIADNA CORTES ~ Assessment & Plan Addt'l Comments Addendum: The patient underwent transthoracic echocardiogram on 06-17-2022. The results are noted below. The study was technically difficult. Contrast injection was performed. Left ventricular systolic function is normal. The estimated ejection fraction is 60 %. Moderate concentric left ventricular hypertrophy. Mild diffuse mitral valve thickening. Trivial mitral valve insufficiency. The aortic valve leaflets are not well visualized and thus a bicuspid aortic valve cannot be excluded, however, based upon the 2D echocardiographic images obtained there appears to be moderate diffuse thickening, calcification, and partial restriction. Severe aortic stenosis. No evidence for diastolic dysfunction. The aforementioned findings, with respect to the patient's aortic valve, will have to be taken into consideration with respect to his clinical course and ongoing evaluation and care including diagnostic studies such as diagnostic cardiac catheterization. The patient's case has been discussed and reviewed with the patient. He is agreeable to proceeding with further evaluation and care as previously noted. This note was generated using a voice recognition system and there may be incorrect words, spelling or punctuation that were not noted when reviewing the office note prior to saving.
[2022-06-20 08:08] VITALS: BMI 41.0
--- NOTE | 2022-06-21 12:11 | CL.D_ITS ---
Patient Name: ELBA GEORGE Study Date: 06/21/2022 Performing: Blayne Hayes MD Ht: 69 inches 175.26 cm : 1975 Wt: 278 lbs 126.1 kg Age: 46 Gender: male BSA: 2.38 PROCEDURE(S) PERFORMED AAA01-([id number])US GUIDED ACCESS [id number]-([id number])LHC/COR/LV CLINICAL PROFILE AND INDICATIONS Indications: Valvular Disease Heart Failure: None Stress/Imaging Stress/Image Study Performed: No Angina Classification Anginal Classification w/in 2 Weeks: CCS III CONCLUSIONS Elevated Left Ventricular End Diastolic Pressure Normal LV size, wall motion,and systolic function LVEF: by LV gram 65 % Normal coronary arteries Aortic Root dilated Aortic Valve Calcification- Severe Aortic Valve: PG: suggestive of severe aortic valve restriction / stenosis RECOMMENDATIONS Medical therapy Surgery consult for valvular disease DESCRIPTION OF PROCEDURE The patient arrived to the procedure lab. The risks and benefits of the procedure as well as a full description of our services here and current unavailability of surgical backup were fully explained to the patient and/or their significant other prior to the catheterization. The Timeout was completed, verifying the correct patient and procedure. The patient's procedural site was prepped and draped in the usual fashion. Local anesthetic was given subcutaneously to right radial region with Lidocaine 2%. Local anesthetic was given subcutaneously to right groin region with Lidocaine 2%. Local anesthetic was given subcutaneously to right brachial region with Lidocaine 2%. Using a modified Seldinger technique, arterial access was obtained via the right radial artery, a 6Fr sheath was inserted. Left Coronary Artery selective angiography was performed in multiple views using a 5 Fr. 4.0 [place] catheter. Right Coronary Artery selective angiography was then performed in multiple views using a 6 Fr. JR 4 catheter. Left Ventriculography was performed in HSIEH projection using a 5 Fr. [place] catheter. LV to AO pullback pressures were then recorded.The arterial sheath was pulled and a TR Band was applied for hemostasis CORONARY ANGIOGRAPHY DOMINANCE: Right Dominant LEFT HEART ASSESSMENT Left Ventricular Ejection Fraction: by LV Gram 65 % Normal LV wall motion Elevated Left Ventricular End Diastolic Pressure LVEDP: 20 mmHg LEFT MAIN: Angiographically normal LEFT ANTERIOR DESCENDING ARTERY: Angiographically normal CIRCUMFLEX ARTERY: Angiographically normal RIGHT CORONARY ARTERY: Angiographically normal VALVE FINDINGS: Aortic Valve Calcification - severe PG: suggestive of severe aortic valve restriction / stenosis AORTIC ROOT: Dilated COMPLICATIONS No Complications PROCEDURE MEDICATIONS Fentanyl 50 mcg IV Versed 1 mg IV Versed 1 mg IV Fentanyl 50 mcg IV Heparin given IA 06/21/2022 11:14:20 Verapamil 2.5mg, Ntg 100mcgs, 3000 units of Heparin given IA 06/21/2022 11:14:20 SUMMARY OF HEMODYNAMIC DATA Time AIR REST ECG 08:58:07 AO 123/88 (105) SA 11:18:56 LV 198/-4, 20 11:29:33 LV 196/-5, 20 11:29:40 LV 197/-2, 25 11:31:05 LVp 195/-2, 19 11:31:16 AOp 117/79 (97) 11:31:22 AIR REST 12:09:47 Signed By Blayne Hayes MD On 06/21/2022 12:10:54 Blayne Hayes MD
== END 2022-06-21 13:15 | disposition home or self-care (01) ==
LOC: CLSP 08:30
PROVIDERS: PCP Family Medicine; Referring Provider Internal Medicine Cardiovascular Disease; Visit Provider Internal Medicine Cardiovascular Disease
DX: I77.819 Aortic ectasia, unspecified site (principal); I70.0 Atherosclerosis of aorta; I20.9 Angina pectoris, unspecified; R00.2 Palpitations; I35.0 Nonrheumatic aortic (valve) stenosis; I10 Essential (primary) hypertension; R01.1 Cardiac murmur, unspecified; G47.33 Obstructive sleep apnea (adult) (pediatric); E66.9 Obesity, unspecified; Z79.82 Long term (current) use of aspirin; Z79.899 Other long term (current) drug therapy; Z86.16 Personal history of COVID-19
CPT/HCPCS: 76937; 93458; 99152; 99153; J7040; Q9967; C1751; C1769; C1894

== ENCOUNTER → 2022-06-28 | Day surgery (SDC) | payer BC, MEDICAID, SELFPAY ==
--- NOTE | 2022-06-24 12:32 | PCM.HP.BLA ---
History and Physical Date of Admission: 06/28/22 [facility] [address] [place] [address] Name:ELBA MCCLURE : 1975 Provider: Dr. Blayne Hayes MD Age/Sex:? 46/M ?HPI HPI History of Present Illness Surgical H&P: Yes Details: This is a 46-year white male who presents today for cardiovascular evaluation based upon concerns of symptoms concerning for worsening angina pectoris, dyspnea on exertion, a cardiac murmur, superimposed upon a history of hypertension and COVID-19 (2020).? He states since the COVID-19 exposure he has had, over the last few months , he has been noticing worsening chest discomfort with exertion such as going up stairs or going up an incline.? He states he will get a burning sensation as he places his fist over his sternal area.? He becomes short of breath and dyspneic and potentially somewhat diaphoretic.? He states after he stops and rests he will feel better.? He does not have the symptoms radiating to his neck, shoulder, or upper extremities.? There is no associated nausea or emesis.? The symptoms do not occur at rest or at night. He also states that he was told at a young age she had a cardiac murmur.? He remembers undergoing an echocardiogram in age 10.? To the best of his knowledge there was no follow-up after that. He has been evaluated by pulmonology based upon his history and his symptoms.? Thus far he states his pulmonary evaluation has been unremarkable.? Thus he was referred to cardiology for further evaluation. He did have lipid labs performed on 10-10-2020.? At that time his total cholesterol was 98 with an LDL of 47 and an HDL of 31.? His triglycerides were 117. It appears in April 2021 he had an ECG.? At that time he had sinus tachycardia with nonspecific ST and T wave abnormality. He had an ECG today in the office at which time he had sinus rhythm with nonspecific T wave. Intake Vital Signs ? 06/10/2211:21 06/10/2211:27 Height 5 ft 9.5 in 5 ft 9 in Weight: ? 278 lb 5 oz BMI ? 41.1 BP ? 108/70 Blood Pressure Location ? Lt brachial Position ? Sitting Respiration ? 16 Pulse ? 84 Pulse Source ? Auscultation Intake Visit Reasons:?SOB/REF. CORBY Buffer Copper Required: No Accompanied by: Self Allergies formoterol [From Dulera] Adverse Reaction (Unknown, Verified 06/10/22 11:27) Headachemometasone furoate [From Asmanex Twisthaler] Adverse Reaction (Unknown, Verified 06/10/22 11:27) Mouth Sores Medications lisinopril 40 mg tablet 40 mg PO DAILY 08/04/18 [History Confirmed 06/10/22] cholecalciferol (vitamin D3) 125 mcg (5,000 unit) capsule 125 mcg PO DAILY 12/10/21 [History Confirmed 06/10/22] fexofenadine 180 mg tablet (Dori Allergy) 180 mg PO DAILY 12/10/21 [History Confirmed 06/10/22] albuterol sulfate 90 mcg/actuation aerosol inhaler 2 puff inhalation Q4H PRN shortness of breath or wheezing #8.5 grams 01/28/22 [Rx Confirmed 06/10/22] aspirin 81 mg tablet,delayed release 81 mg PO DAILY #1 TAB 06/10/22 [Rx Confirmed 06/10/22] isosorbide mononitrate 30 mg tablet,extended release 24 hr 30 mg PO DAILY #30 tabs 06/10/22 [Rx Confirmed 06/10/22] PFSH Medical History?(Updated 06/10/22 @ 12:[address] Blayne Hayes MD) Anal fissure Arthritis Asthma Blood in stool BRBPR (bright red blood per rectum) Cardiac murmur Carpal tunnel syndrome Chest pain COVID-19 Essential hypertension Fatty liver Heart murmur History of back problems Hypertension Lumbar stenosis Migraines Obesity CARMEL (obstructive sleep apnea) Pneumonia Pneumonia due to COVID-19 virus Sciatica Surgical History? H/O rhinoplasty S/p bilateral carpal tunnel release Family History? Mother Hypertension Kidney diseaseFather Hypertension Kidney disease CAD (coronary artery disease) History of coronary artery bypass surgeryGrandfather DiabetesGrandmother Diabetes Social History? household members:? spouse Smoking Status:? Never smoker alcohol intake:? never substance use type:? does not use caffeine:? No ROS Const Const: Positive for fatigue (continues since COVID); Negative for weakness, body ache, fever(s), headache(s), chills, frequent falls, night sweats, daytime sleepiness, difficulty sleeping, excessive sweating, weight gain, weight loss, increased appetite, poor appetite, anorexia or other Eyes Eyes: Negative for blurry vision or double vision ENT ENT: Negative for headache(s), dizziness or balance problems Cardio Chest Pain: Yes (since COVID infection x1 year ago) Character: sharp (burning) Onset: exercise (going uphill/stairs, exacerbated with cold air) Location: mid sternal Duration: brief Relieving: rest (take deep breaths) Palpitations: Yes (with chest discomfort) feels like its: pounding Edema: None Muscle aches with walking: None Resp Respiratory: Positive for SOB with activity (New since COVID infection x1 year ago); Negative for SOB at rest, SOB orthopnea\SOB lying down, Cough, Coughing up blood/hemoptysis, chest congestion, pain on inspiration, snoring, stridor, wheezing, crackles, paroxysmal nocturnal dyspnea or other Musc Musc: Negative for muscle aches/ myalgia, muscle weakness, joint pain or balance problems Neuro Neuro: Negative for dizziness, lightheadedness, near syncope, syncope, orthostatic symptoms, frequent falls, headache(s), weakness, confusion, memory loss, restless legs, blurry vision, double vision, vertigo, seizures, lack of coordination or other Endo Endo: Positive for fatigue (continues since COVID); Negative for excessive sweating Cardiology Exam Const Appearance: cooperative, healthy appearing, comfortable, no acute distress, well developed and well groomed Nutritional Appearance: obese Orientation: alert, awake and oriented x3 Head Head: normal to inspection, normocephalic and atraumatic Ears: hearing grossly normal bilaterally Nose: external nose normal Face and Sinus: face symmetric Eyes Eyelids: eyelids normal Conjunctivae: conjunctivae normal Pupils: PERRL EOM: EOM intact bilaterally Neck Neck: normal visual inspection and full ROM Carotids: normal carotid upstroke Chest Chest inspection: normal inspection of the chest, symmetric chest movement and normal respiratory effort Auscultation: Bilateral: Clear to Auscultation Cardio Palpation: normal PMI Rate: regular rate Rhythm: regular rhythm Heart sounds: S1 normal, S2 normal and murmur Murmur: Grade 3/6, harsh, late systolic, LLSB, LVOT and sternal notch GI GI: normal to inspection, soft, bowel sounds present and obese Neuro General: patient alert, patient oriented x3, gait normal and moves all extremities Skin Skin: no rashes or lesions noted Extremities Pulses: Normal: Right Femoral Pulse, Left Femoral Pulse, Right Dorsalis Pedis Pulse, Left Dorsalis Pedis Pulse, Right Posterior Tibial Pulse, Left Posterior Tibial Pulse, Right Radial Pulse and Left Radial Pulse Lower Extremity Edema: None: Bilateral Psych Psychological: normal affect Supplemental Info Supplemental Information Labs: ?? ? No Data to Display Diagnostics: ?? ? Electrocardiogram ? Pulmonary: ?? ? Pulmonary Function Test ? Assessment and Plan Assessment and Plan (1) Worsening angina: ?Status:?Acute ?Plan: The patient describes symptoms concerning for worsening angina pectoris. At the moment he will be asked to initiate medical therapy with aspirin 81 mg p.o. daily and isosorbide mononitrate at 30 mg p.o. daily. He will be asked undergo further evaluation of his left ventricle with a transthoracic echocardiogram. He will also be asked undergo further evaluation of his coronary anatomy with a diagnostic cardiac catheterization. It was felt reasonable that the patient be considered, based upon his symptom description, etc., to proceed directly with evaluation with a diagnostic cardiac catheterization as opposed to an exercise tolerance test/imaging study initially. (2) Dyspnea: ?Status:?Acute ?Plan: The patient will undergo further evaluation. This include laboratory studies, a chest x-ray, and echocardiogram, as well as the aforementioned diagnostic cardiac catheterization. (3) Essential hypertension: ?Status:?Acute ?Plan: The patient's blood pressure appears to be reasonly well controlled at this time. He will continue medical therapy. (4) Cardiac murmur: ?Status:?Acute ?Plan: The patient does have a cardiac murmur. His previous echocardiogram from age 10 is unavailable for review. He will have a follow-up echocardiogram to assess his valvular anatomy and physiology and his ventricular anatomy and physiology. Depending upon the findings, if the patient has underlying valvular heart disease, this may also be contributing to his symptoms especially with concerns of his shortness of breath and dyspnea. (5) CARMEL (obstructive sleep apnea): ?Status:?Acute ?Plan: The patient has a history of CARMEL listed in his past medical history. He will continue evaluation care per his other physicians for this as deemed appropriate. ? ? ? Orders: Orders 12 Lead EKG performed by [facility] Today I10 - Essential (primary) hypertension, R06.00 - Dyspnea, unspecified, R07.9 - Chest pain, unspecified ? Left Heart Cath/COR/LV Percut Today G47.33 - Obstructive sleep apnea (adult) (pediatric), I10 - Essential (primary) hypertension, I20.0 - Unstable angina, R01.1 - Cardiac murmur, unspecified, R06.00 - Dyspnea, unspecified ? Basic Metabolic Profile (BMP) Today G47.33 - Obstructive sleep apnea (adult) (pediatric), I10 - Essential (primary) hypertension, I20.0 - Unstable angina, R01.1 - Cardiac murmur, unspecified, R06.00 - Dyspnea, unspecified ? Partial Thromboplast Time Today G47.33 - Obstructive sleep apnea (adult) (pediatric), I10 - Essential (primary) hypertension, I20.0 - Unstable angina, R01.1 - Cardiac murmur, unspecified, R06.00 - Dyspnea, unspecified ? Prothrombin Time w/INR Today G47.33 - Obstructive sleep apnea (adult) (pediatric), I10 - Essential (primary) hypertension, I20.0 - Unstable angina, R01.1 - Cardiac murmur, unspecified, R06.00 - Dyspnea, unspecified ? Echo Complete Today G47.33 - Obstructive sleep apnea (adult) (pediatric), I10 - Essential (primary) hypertension, I20.0 - Unstable angina, R01.1 - Cardiac murmur, unspecified, R06.00 - Dyspnea, unspecified ? CBC W/Diff, Automated Today G47.33 - Obstructive sleep apnea (adult) (pediatric), I10 - Essential (primary) hypertension, I20.0 - Unstable angina, R01.1 - Cardiac murmur, unspecified, R06.00 - Dyspnea, unspecified ? Chest PA and Lateral Today G47.33 - Obstructive sleep apnea (adult) (pediatric), I10 - Essential (primary) hypertension, I20.0 - Unstable angina, R01.1 - Cardiac murmur, unspecified, R06.00 - Dyspnea, unspecified ? Medications: New aspirin 81 mg? PO DAILY 1 TAB 0RF ? ? isosorbide mononitrate ER 30 mg? PO DAILY 30 tabs 3RF ? ? isosorbide mononitrate ER 30 mg? PO DAILY 30 tabs 3RF ? ? Plan Details Additional Comments: The above was discussed with the patient he was agreeable to this approach Thank you for allowing me to participate in the care of your patient.? Please don't hesitate to call if any issues arise. This note was generated using a voice recognition system and there may be incorrect words, spelling or punctuation that were not noted when reviewing the office note prior to saving. Follow Up: ? ? 3 Months (PFM ) COVID (Procedure Consent) Procedure Criteria Procedure Criteria: Yes Elective The surgeon/proceduralist and patient have discussed in detail the risk of exposure to and/or potential harm posed by the COVID-19 virus with having a surgery/procedure at this time versus the risk of? delaying the surgery/procedure. It is not possible to know either the risk of delaying the surgery or procedure or chance of getting an infection with perfect accuracy, but a joint decision was made between the patient and the surgeon/proceduralist ?to proceed at this time with the scheduled surgery/procedure as indicated on the consent form. Coding Level of Care Code Off vis,new,level 5 Diagnoses Worsening angina? I20.0 Dyspnea? R06.00 Essential hypertension? I10 Cardiac murmur? R01.1 CARMEL (obstructive sleep apnea)? G47.33 Coding Level of Care Code Off vis,new,level 5 Diagnoses Worsening angina? I20.0 Dyspnea? R06.00 Essential hypertension? I10 Cardiac murmur? R01.1 CARMEL (obstructive sleep apnea)? G47.33 Blayne Hayes MD CC:? ARIADNA CORTES ~ Assessment & Plan Addt'l Comments Addendum: Date: 06-28-2022 The patient did undergo further evaluation with transthoracic echocardiogram on 06-17-2022. The results are noted below. Interpretation Summary The study was technically difficult. Contrast injection was performed. ? Left ventricular systolic function is normal. The estimated ejection fraction is 60 %. Moderate concentric left ventricular hypertrophy. Mild diffuse mitral valve thickening. Trivial mitral valve insufficiency. The aortic valve leaflets are not well visualized and thus a bicuspid aortic valve cannot be excluded, however, based upon the 2D echocardiographic images obtained there appears to be moderate diffuse thickening, calcification, and partial restriction. Severe aortic stenosis. No evidence for diastolic dysfunction. The patient underwent further evaluation with diagnostic cardiac catheterization on 06-21-2022. The results are noted below. CONCLUSIONS Elevated Left Ventricular End Diastolic Pressure Normal LV size, wall motion,and systolic function LVEF: by LV gram 65 % Normal coronary arteries Aortic Root dilated Aortic Valve Calcification- Severe Aortic Valve: PG: suggestive of severe aortic valve restriction / stenosis RECOMMENDATIONS Medical therapy Surgery consult for valvular disease DESCRIPTION OF? PROCEDURE The patient arrived to the procedure lab. The risks and benefits of the procedure as well as a full description of our services here and current unavailability of surgical backup were fully explained to the patient and/or their significant other prior to the catheterization. The Timeout was completed, verifying the correct patient and procedure. The patient's procedural site was prepped and draped in the usual fashion. Local anesthetic was given subcutaneously to right radial region with Lidocaine 2%. Local anesthetic was given subcutaneously to right groin region with Lidocaine 2%. Local anesthetic was given subcutaneously to right brachial region with Lidocaine 2%. Using a modified Seldinger technique, arterial access was obtained via the right radial artery, a 6Fr sheath was inserted. Left Coronary Artery selective angiography was performed in multiple views using a 5 Fr. 4.0 [place] catheter. Right Coronary Artery selective angiography was then performed in multiple views using a 6 Fr. JR 4 catheter. Left Ventriculography was performed in HSIEH projection using a 5 Fr. Pigtail catheter. LV to AO pullback pressures were then recorded.The arterial sheath was pulled and a TR Band was applied for hemostasis CORONARY ANGIOGRAPHY DOMINANCE:? Right Dominant LEFT HEART ASSESSMENT Left Ventricular Ejection Fraction: by LV Gram 65 % Normal LV wall motion Elevated Left Ventricular End Diastolic Pressure LVEDP: 20 mmHg LEFT MAIN: Angiographically normal LEFT ANTERIOR DESCENDING ARTERY: Angiographically normal CIRCUMFLEX ARTERY: Angiographically normal RIGHT CORONARY ARTERY: Angiographically normal VALVE FINDINGS: Aortic Valve Calcification - severe PG: suggestive of severe aortic valve restriction / stenosis AORTIC ROOT: Dilated Status post the above procedures the patient's medications were adjusted and his previously initiated medical management with isosorbide mononitrate was discontinued. The patient was asked undergo further evaluation of his aortic valve anatomy and physiology with a transesophageal echocardiogram. The procedure and risk were discussed with him. He was agreeable to this approach. In the interim the patient is being referred to Dr. Josh Bates at [facility] CT surgery for consideration, based upon his clinical, examination findings, and his objective findings, for aortic valve replacement and possibly aortic root repair. This note was generated using a voice recognition system and there may be incorrect words, spelling or punctuation that were not noted when reviewing the office note prior to saving.
--- NOTE | 2022-06-28 09:26 | ECHOTEE_ITS ---
Reason For Study: MURMUR Medication HOOD probe 6VT-D (SN [id number]) passed with minimal difficulty. No complications were noted. Versed 2 mg given slow IVP. Fentanyl 100 mcg given slow IVP. Cetacaine Topical Clyde given X3 orally. Performed a rapid injection of agitated mix of 9 cc saline and 1cc air to assess for atrial septal defect. Left Ventricle Normal LV size. Left ventricular systolic function is normal. The estimated ejection fraction is 65 %. No regional wall motion abnormalities noted. Right Ventricle Normal RV size. Normal systolic function. Atria No doppler evidence for ASD. Bubble contrast study negative for right to left interatrial shunt. Normal left atrium. There is no sponatenous contrast in the left atrium. No thrombus is detected in the left atrial appendage. Normal right atrium. There is no sponatenous contrast in the right atrium. No RA/appendage thrombus identified. Mitral Valve There is no mitral annular calcification. Normal mitral valve. Mild (1+) mitral valve insufficiency. Tricuspid Valve Normal tricuspid valve. Trivial tricuspid valve insufficiency. Aortic Valve Bicuspid aortic valve. Mild diffuse aortic valve thickening. Severe focal aortic valve calcification. Mild (1+) eccentric aortic valve insufficiency. Pulmonic Valve The pulmonic valve is not well visualized. Vessels Normal-appearing thoracic aorta. Pericardium No pericardial effusion. ECHO/Echo Transesophageal (HOOD) Interpretation Summary Left ventricular systolic function is normal. The estimated ejection fraction is 65 %. There is no sponatenous contrast in the left atrium. No thrombus is detected in the left atrial appendage. Mild (1+) mitral valve insufficiency. Trivial tricuspid valve insufficiency. Bicuspid aortic valve. Mild diffuse aortic valve thickening. Severe focal aortic valve calcification. Mild (1+) eccentric aortic valve insufficiency. Bubble contrast study negative for right to left interatrial shunt. Ordering Physician: Blayne Hayes Referring Physician: Blayne Hayes Performed By: Ct Roth RCS
== END | disposition home or self-care (01) ==
LOC: CVS 09:25
PROVIDERS: PCP Family Medicine; Referring Provider Internal Medicine Cardiovascular Disease; Visit Provider Internal Medicine Cardiovascular Disease
DX: I70.0 Atherosclerosis of aorta (principal); I20.9 Angina pectoris, unspecified; I35.1 Nonrheumatic aortic (valve) insufficiency; I34.0 Nonrheumatic mitral (valve) insufficiency; I07.1 Rheumatic tricuspid insufficiency; R01.1 Cardiac murmur, unspecified; G47.33 Obstructive sleep apnea (adult) (pediatric); I10 Essential (primary) hypertension; K76.0 Fatty (change of) liver, not elsewhere classified; Z79.82 Long term (current) use of aspirin; Z86.16 Personal history of COVID-19
CPT/HCPCS: 87426; 93312; 93320; 93325; J7040; A4216

== ENCOUNTER → 2022-06-30 | Outpatient (CLI) | payer BC, MEDICAID, SELFPAY ==
--- NOTE | 2022-06-30 11:02 | ADUL_ITS ---
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 SFA prox, 0.80 x 0.82 cm, 77.7 cm/sec. CFV and FV prox are compressible with normal venous flow. No pseudoaneurym or AV malformation noted. Preliminary report to Miley [facility] voicemail. Procedure Exam performed in department. VL/US Art Duplex Unilat Lower Ext Interpretation Summary Right femoral vessels patent with no stenosis, deep vein thrombosis, pseudoaneu rysm, or fistula identified Ordering Physician: Blayne Hayes Referring Physician: Rayshawn Adhikari Performed By: Michelle Lerner RVT
--- NOTE | 2022-06-30 11:02 | ADUUE_ITS ---
Reason For Study: Swelling RIGHT Radial artery prox, 0.31 x 0.30 cm, 68.1 cm/sec. Radial artery mid, 0.24 x 0.24 cm, 62.9 cm/sec. Radial artery distal, 0.32 x 0.32 cm, 67.2 cm/sec. Ulnar artery mid, 0.30 x 0.29 cm, 107.8 cm/sec. Brachial artery distal, 0.52 x 0.49 cm, 85.8 cm/sec. Radial, Ulnar, Brachial, anc Cephalic veins are compressible. No pseudoaneurysm or acute occlusion noted. Preliminary report to Miley MARIA voicemail. /US Art Duplex Unilat UP Extrem Interpretation Summary Right upper extremity arterial system patent with no stenosis, pseudoaneurysm, fistula visualized. Right upper extremity venous system patent, compressible with no evidence of de ep or superficial thrombus. Ordering Physician: Blayne Hayes Referring Physician: Rayshawn Adhikari Performed By: Michelle Lerner RVT
== END | disposition home or self-care (01) ==
LOC: CVS 11:01
PROVIDERS: PCP Family Medicine; Visit Provider Internal Medicine Cardiovascular Disease
DX: R22.9 Localized swelling, mass and lump, unspecified (principal); R09.89 Other specified symptoms and signs involving the circulatory and respiratory systems; S75.001A Unspecified injury of femoral artery, right leg, initial encounter
CPT/HCPCS: 93926; 93931

== ENCOUNTER → 2022-08-24 | Outpatient (CLI) | payer BC, MEDICAID, SELFPAY ==
[2022-08-24 17:07] LABS: Erythrocyte Sedimentation Rate 1 mm/hr (0-20)
[2022-08-24 17:45] LABS: CRP, High Sensitivity Cardiac 6.02 mg/L
== END | disposition home or self-care (01) ==
LOC: LAB 16:31
PROVIDERS: PCP Family Medicine; Visit Provider Nurse Practitioner Gerontology
DX: R07.1 Chest pain on breathing (principal); Z95.2 Presence of prosthetic heart valve
CPT/HCPCS: 36415; 85652; 86141

== ENCOUNTER 2022-08-25 10:35 | Emergency (ER) | payer BC, MEDICAID, SELFPAY ==
[2022-08-25] VITALS (14 sets, daily range): BP systolic 108–134; BP diastolic 23–109; PULSE 106–117; RESP 17–28; TEMP 36.3–37.1; O2SAT 94–99; BMI 41.8
--- NOTE | 2022-08-25 10:43 | EKG12_ITS ---
Test Reason : CP Blood Pressure : / mmHG Vent. Rate : 115 BPM Atrial Rate : 115 BPM P-R Int : 150 ms QRS Dur : 100 ms QT Int : 346 ms P-R-T Axes : 059 040 079 degrees QTc Int : 478 ms Sinus tachycardia Nonspecific ST and T wave abnormality Abnormal ECG Confirmed by GUERITA DC, IRIS ([id number]), international editorial producer JULIUS KAN ([id number]) on 08/26/2022 2:50:26 PM Referred By: PATO Confirmed By:SANDRA DEXTER MD
--- NOTE | 2022-08-25 10:43 | CT_ITS ---
STUDY: CTA CHEST REASON FOR EXAM: Male, 46 years old. Dyspnea -- post op mitral valve repair 07/19/22 RADIATION DOSAGE (If Supplied By Facility): CTDIvol = ( 16.22 ) mGy, DLP = ( 515.32 ) mGycm TECHNIQUE: The examination was performed with the intravenous administration of IV 100mL Isovue-370. Post-processing of the angiographic images was performed, with multiplanar reformation and 3D reconstruction. Individualized dose optimization techniques were used for this CT. COMPARISON: Comparison is made with prior study done 05/16/2021. FINDINGS: Normal enhancement of the main pulmonary artery and right and left pulmonary arteries. Normal enhancement of the bilateral peripheral pulmonary arteries. There is no demonstrated pulmonary embolism. Normal thoracic aorta and visualized great vessels. There is no demonstrated aortic dissection. Moderate sized pericardial effusion along the base and left side of the heart. The patient is status post mitral valve replacement. Sternal cerclage wires are present from a prior sternotomy. Normal mediastinum. Normal hilar regions. Normal visualized trachea and bronchi. The lungs are well expanded. Increased linear markings at the lung bases with areas of confluence suggestive of bibasilar atelectasis. Normal pleura. Normal chest wall structures. There are degenerative changes of thoracic spine. Normal visualized upper abdomen. CT/CTA Chest W/WO Contrast IMPRESSION: Status post mitral valve replacement. Pericardial effusion. No evidence of pulmonary embolism. Findings in comparison with bibasilar atelectasis. Electronically Signed: Lon Ibarra MD at 12:17 EST ,
[2022-08-25 10:54] LABS: Absolute Lymphocyte Count 2.12 X10^3/uL (0.83-4.51); Absolute Neutrophil Count 7.4 X10^3/uL (2.0-7.7); Basophil# 0.05 X10^3/uL; Basophil% 0.5 % (0-1); Eosinophil# 0.14 X10^3/uL; Eosinophils% 1.3 % (0-5); Hematocrit 42.4 % (40-54); Hemoglobin 14.1 g/dL (13.0-16.5); Lymphocyte # 2.12 X10^3/ul (0.83-4.51); Lymphocyte % 19.4 % (19-41); Mean Corp Hgb Conc 33.3 g/dL (32-36); Mean Corpuscular Hgb 28.7 pg (27.0-32.0); Mean Corpuscular Volume 86.4 fL (80-94); Monocyte# 1.22 X10^3/uL; Monocyte% 11.1 % (0-10); NRBC Flagged by Analyzer 0 % (0-5); Neutrophil # 7.38 X10^3/uL (2.7-7.7); Neutrophil % 67.3 % (47-70); Platelet Count 289 K/mm3 (150-450); RBC Distribution Width CV 13.2 % (11.6-14.6); Red Blood Count 4.91 M/mm3 (4.6-6.2)
--- NOTE | 2022-08-25 10:56 | EDS_ITS ---
HPI History of Present Illness Chief Complaint: Palpitations Informant: patient Narrative Narrative: Presents referred in by PCP and his labor relations specialist for evaluation. He is postop aortic mechanical valve repair July [address] [facility] ( Dr. Josh Moore). He is on warfarin. History of bicuspid valve. States he was doing fine up to 2 days ago had increasing dyspnea and intermittent chest pains. He states he had a heart cath here by Dr. Hayes with normal coronary arteries. Called on-call labor relations specialist last night was told go to ED. He waited to see his PCP today and was referred here. Pulse ox was 93% in the office. He reports his INR was 2.1. Reported this not normal. Therefore sent here. Denies leg swelling or cramping. History of sleep apnea. Dyspnea with exertion. [facility] Medical History Anal fissure Aortic root dilatation Aortic stenosis Arthritis Asthma Bicuspid aortic valve Blood in stool BRBPR (bright red blood per rectum) Cardiac murmur Carpal tunnel syndrome Chest pain COVID-19 Essential hypertension Fatty liver Heart murmur History of back problems Hypertension Lumbar stenosis Migraines Obesity CARMEL (obstructive sleep apnea) Pneumonia Pneumonia due to COVID-19 virus Sciatica Severe aortic valve stenosis SOB (shortness of breath) Home Medications aspirin 81 mg tablet,delayed release 81 mg PO DAILY #1 TAB 06/10/22 [Rx Last Taken 06/28/22] metoprolol succinate 100 mg tablet,extended release 24 hr 100 mg PO BID 08/01/22 [History Last Taken Unknown] lisinopril 10 mg tablet 10 mg PO DAILY 08/19/22 [History Last Taken Unknown] warfarin 10 mg tablet 5 mg PO DAILY 08/19/22 [History Last Taken Unknown] acetaminophen 500 mg tablet 1,000 mg PO Q6H PRN Pain 08/25/22 [History Last Taken Unknown] Allergy/AdvReac Type Severity Reaction Status Date / Time formoterol [From Dulera] AdvReac Unknown Headache Verified 08/25/22 10:37 mometasone furoate AdvReac Unknown Mouth Sores Verified 08/25/22 10:37 [From Asmanex Twisthaler] Family History Mother Hypertension Kidney disease Father Hypertension Kidney disease CAD (coronary artery disease) History of coronary artery bypass surgery Grandfather Diabetes Grandmother Diabetes Surgical History H/O rhinoplasty History of mechanical aortic valve replacement (~07/19/22) S/p bilateral carpal tunnel release Social History household members: spouse Smoking Status: Never smoker alcohol intake: never substance use type: does not use caffeine: No ROS ROS ED Constitutional Constitutional ED: Denies chills, fever(s) or sweats Eyes Eyes: Denies change in vision ENT ENT ED: Denies dysphagia or sore throat Cardiovascular Cardiovascular: Reports chest pain; Denies leg edema, palpitations or racing heartbeat Respiratory/Chest Respiratory/Chest: Reports dyspnea and dyspnea on exertion; Denies cough Gastrointestinal Gastrointestinal: Denies abdominal pain, diarrhea, nausea or vomiting Genitourinary Genitourinary ED: Denies dysuria, hematuria or urinary frequency Musculoskeletal Musculoskeletal: Denies back pain, extremity pain or neck pain Integumentary Denies rash or wounds Neurologic Neurologic: Denies headache(s), paresthesias or weakness EXAM Physical Exam Const Vital Signs: 08/25/22 10:37 08/25/22 10:39 08/25/22 10:40 Temperature 97.3 F L Temperature Source Oral Pulse Rate 117 H 115 H Respiratory Rate 18 Respiratory Effort Normal Non-Labored Blood Pressure 134/90 H Blood Pressure Mean 104 Pulse Ox 98 Oxygen Delivery Method Room Air 08/25/22 11:39 08/25/22 12:29 08/25/22 13:05 Temperature Temperature Source Pulse Rate 108 H 107 H 107 H Respiratory Rate 18 18 17 Respiratory Effort Blood Pressure 131/84 H 112/72 113/74 Blood Pressure Mean 99 85 87 Pulse Ox 96 94 99 Oxygen Delivery Method Room Air Room Air Room Air 08/25/22 14:05 08/25/22 14:55 08/25/22 15:03 Temperature Temperature Source Pulse Rate 107 H 106 H Respiratory Rate 20 H 19 H Respiratory Effort Blood Pressure 116/67 126/23 H 108/69 Blood Pressure Mean 83 57 82 Pulse Ox 98 99 Oxygen Delivery Method Room Air Room Air Positive well nourished and well developed Constitutional Narrative: No distress. General Appearance ED: well developed and NAD HEENT Reports moist mucous membranes normocephalic and atraumatic Eyes PERRL, EOMs intact bilaterally and conjunctivae normal General Eye ED: Yes normal appearance of both eyes Neck no lymphadenopathy and supple General: Negative for tenderness Chest Wall Chest Narrative: Mid chest healing scar. Chest: Negative for tenderness Resp normal respiratory effort and normal air movement Effort and Inspection: symmetric chest movement; Negative for respiratory distress Cardio regular rhythm and no murmurs Rate: tachycardic Peripheral Pulses: pulses 2+ throughout GI normal to inspection, nondistended, normoactive bowel sounds and non-tender Palpation: Negative for guarding or rebound tenderness present Back/Spine no CVA tenderness and no thoracic nor lumbar tenderness Extremity normal to inspection General Extremety ED: Negative for edema or tenderness General Extremity: Negative for edema Neuro oriented x3 and no sensory deficits noted Sensorium / Orientation: awake and alert Skin no rashes or lesions noted and no wounds MDM MDM MDM Narrative Medical decision making narrative: Patient worsening dyspnea on exertion.. Differential pulmonary embolism heart failure, pericardial effusion, tamponade. Patient EKG sinus tachycardia no pulses paradoxus noted. He is not hypoxic. Postop exertional dyspnea. CTA PE rule out initiated with labs. In addition I performed a bedside ultrasound noted pericardial effusion. I did reach out to on-call labor relations specialist Dr. Soliman with photo sent through backline he agrees with the findings for stat echocardiogram. We will pursue with PE rule out. He recommended transfer as he is postop cardiac patient at [facility]. I reached out to [facility] transfer line for discussion as work-up is initiated. 1220: INR slightly subtherapeutic for his mechanical valve at 2.1. Hemoglobin 14.1 white count 11. Creatinine 1. Troponin 8. BNP elevated at 156. PE scan negative per radiology. Does report pericardial effusion. Pending formal echocardiogram with results at this time. We discussed with patient reporting he is walking to the bathroom significantly short of breath on return. 1440: Discussed with my labor relations specialist Dr. Soliman who read the echocardiogram moderate pericardial effusion near severe. He states echo genic density in the fluid reports could be fibrogenic material however reported to me possible hemorrhagic component. Blood pressure remained stable reevaluation heart rate slight tachycardic to 100s. No current tamponade. However there is no CT surgeon here available for intervention if he decompensate. We called out to transfer line at [facility] for discussion for transfer. Edition spoke with imaging department to push his echocardiogram imaging up to [facility] for their evaluation. 1550: I spoke with cardiac team at [facility] Dr. Anglin, agrees he is an appropriate transfer up to their facility. Will await bed for transport. Patient family updated. Lab Data Attestation: I reviewed the patient's lab results. Labs: Laboratory Results - last 24 hr 08/25/22 08/25/22 08/25/22 10:35 10:35 10:35 WBC 11.0 RBC 4.91 Hgb 14.1 Hct 42.4 MCV 86.4 MCH 28.7 MCHC 33.3 RDW Std Deviation 41.0 RDW Coeff of Gamal 13.2 Plt Count 289 MPV 10.0 Immature Gran % (Auto) 0.400 Neut % (Auto) 67.3 Lymph % (Auto) 19.4 [place] % (Auto) 11.1 H Eos % (Auto) 1.3 Baso % (Auto) 0.5 Absolute Neuts (auto) 7.4 Absolute Lymphs (auto) 2.12 Nucleated RBC % 0 PT 23.4 H INR 2.1 APTT 37.8 H Sodium 142 Potassium 3.9 Chloride 107 Carbon Dioxide 27.0 Anion Gap 8 BUN 20 H Creatinine 1.00 Estim Creat Clear Calc 91.32 Est GFR (MDRD) Af Amer 103 Est GFR (MDRD) Non-Af 85 BUN/Creatinine Ratio 20.0 Glucose 146 H Calcium 9.4 Troponin I High Sens 8 B-Natriuretic Peptide 08/25/22 08/25/22 10:35 13:10 WBC RBC Hgb Hct MCV MCH MCHC RDW Std Deviation RDW Coeff of Gamal Plt Count MPV Immature Gran % (Auto) Neut % (Auto) Lymph % (Auto) [place] % (Auto) Eos % (Auto) Baso % (Auto) Absolute Neuts (auto) Absolute Lymphs (auto) Nucleated RBC % PT INR APTT Sodium Potassium Chloride Carbon Dioxide Anion Gap BUN Creatinine Estim Creat Clear Calc Est GFR (MDRD) Af Amer Est GFR (MDRD) Non-Af BUN/Creatinine Ratio Glucose Calcium Troponin I High Sens 8 B-Natriuretic Peptide 156.2 H Radiography Diagnostic Testing: Clinical Impression(s) from Imaging Studies Chest CTA 08/25/22 10:43 IMPRESSION: Status post mitral valve replacement. Pericardial effusion. No evidence of pulmonary embolism. Findings in comparison with bibasilar atelectasis. Electronically Signed: Lon Ibarra MD at 12:17 EST , Echocardiogram 08/25/22 11:09 Interpretation Summary The estimated ejection fraction is 65 %. No evidence for diastolic dysfunction. Stable appearing mechanical aortic valve apparatus. Moderate pericardial effusion. There are no echocardiographic indications of cardiac tamponade. Ordering Physician: Leodan Machado Referring Physician: ARIADNA CORTES Performed By: Gwen Savage, RDCS, RVT Initial EKG: Attestation: I personally reviewed and interpreted this EKG as follows: Comments: Sinus rate of 115, no ST changes T wave inversions in leads I and aVL. No signs of pulses paradoxus. Critical Care Time Critical Care Time: Yes Critical care time (excluding procedures): 30-74 minutes, Discussing w/Patient &/or Family/Communications Strategist, Discussing w/Consultants, Arranging Admission or Transfer, Performing Direct Patient Care at Bedside and - (40 minutes) Discharge Plan Triage Chief Complaint: Palpitations ED Provider: Leodan Machado Dx/Rx/DC Orders Clinical Impression: Acute pericardial effusion, Chest pain, S/P aortic valve repair, Dyspnea on exertion, Sinus tachycardia Prescriptions: No Action aspirin 81 mg tablet,delayed release (DR/EC) 81 mg PO DAILY Qty: 1 0RF metoprolol succinate 100 mg tablet extended release 24 hr 100 mg PO BID lisinopril 10 mg tablet 10 mg PO DAILY warfarin 10 mg tablet 5 mg PO DAILY Rx Instructions: Managed by PCP acetaminophen 500 mg Tablet 1,000 mg PO Q6H PRN (Reason: Pain) Primary Care Provider: Ariadna Cortes Referrals: Ariadna Cortes MD [Primary Care Provider] - Disposition Disposition: DC/Tx to Another Type of HCF
--- NOTE | 2022-08-25 11:09 | ECHOCS_ITS ---
Version 2 Reason For Study: SOB Procedure This was a 2D Doppler, Color Flow transthoracic echocardiogram. The study was technically difficult. D/T body habitus. PT unable to lie in left lateral decubitus position due to recent OHS. Contrast injection was performed. Exam performed portable in ED. Left Ventricle Normal LV size. The estimated ejection fraction is 65 %. No evidence for diastolic dysfunction. No regional wall motion abnormalities noted. Right Ventricle Normal RV size. Normal systolic function. Atria Normal left atrium. Normal right atrium. No doppler evidence for ASD. Mitral Valve There is no mitral valve stenosis. No mitral valve insufficiency. Tricuspid Valve There is no tricuspid stenosis. Unable to estimate RV systolic pressure due to inadequate jet, pulmonary artery pressure probably normal. Aortic Valve There is no aortic stenosis. No aortic valve insufficiency. Stable appearing mechanical aortic valve apparatus. Pulmonic Valve There is no pulmonic valvular stenosis. No pulmonic valve insufficiency. Pericardium/Pleural Moderate pericardial effusion. There are no echocardiographic indications of cardiac tamponade. Echodensities in the effusion suggestive of fibrinous material. Medication Diluted definity 3.0ml given slow IV push to enhance endocardial definition. MMode/2D Measurements & Calculations LVIDd: 4.8 cm IVSd: 1.2 cm LAV(MOD-bp): 39.5 ml LVIDs: 3.0 cm LVPWd: 1.3 cm LAV(MOD-bp) Indexed: 16.5 ml/m2 FS: 37.3 % LAV(MOD-sp2): 31.9 ml LAV(MOD-sp4): 44.2 ml SV(MOD-sp4): 61.4 ml SV(sp4-el): 58.3 ml LVAd ap4: 29.9 cm2 LVLd ap4: 9.1 cm EDV(MOD-sp4): 87.1 ml EDV(sp4-el): 83.1 ml LVAs ap4: 14.6 cm2 LVLs ap4: 7.3 cm ESV(MOD-sp4): 25.7 ml ESV(sp4-el): 24.8 ml EF(MOD-sp4): 70.5 % EF(sp4-el): 70.2 % LA A4 area: 15.8 cm2 LA dimension(2D): 4.2 cm Time Measurements MV dec time: 0.23 sec Doppler Measurements & Calculations MV E max nathan: 58.4 cm/sec Lat Peak E' Nathan: 5.4 cm/sec Med Peak E' Nathan: 10.4 cm/sec MV A max nathan: 79.9 cm/sec E/E' lat: 10.8 E/E' med: 5.6 MV E/A: 0.73 Ao V2 max: 184.3 cm/sec LV V1 max: 101.5 cm/sec PA V2 max: 91.7 cm/sec Ao max P.6 mmHg LV V1 max P.1 mmHg Ao V2 mean: 137.1 cm/sec LV V1 mean P.3 mmHg Ao mean P.0 mmHg LV V1 mean: 71.6 cm/sec Ao V2 VTI: 27.5 cm LV V1 VTI: 15.2 cm AV (velocity ratio): 0.55 ECHO/Echo Complete W/ Contrast Interpretation Summary The estimated ejection fraction is 65 %. No evidence for diastolic dysfunction. Stable appearing mechanical aortic valve apparatus. Moderate pericardial effusion. There are no echocardiographic indications of cardiac tamponade. Ordering Physician: Leodan Machado Referring Physician: ARIADNA CORTES Performed By: Gwen Savage RDCS, RVT
[2022-08-25 11:11] LABS: Anion Gap 8 (5-15); BUN 20 mg/dL (7-18); Calcium,Total 9.4 mg/dL (8.5-10.1); Chloride 107 mmol/L (98-107); EST Glomerular Filtration Rate 85 mL/min (>60); Est Glom Filt Rate - Afr Amer 103 mL/min (>60); Estimated Creatinine Clearance 91.32 ml/min; Glucose 146 mg/dL (74-106); Potassium 3.9 mmol/L (3.5-5.1); Sodium Level 142 mmol/L (136-145); Troponin-I HS (w/2H Reflex) 8 pg/mL (3.0-78.0)
[2022-08-25 11:37] LABS: International Normalized Ratio 2.1; Prothrombin Time (Protime)PT. 23.4 SECONDS (11.7-14.9)
[2022-08-25 11:38] LABS: Partial Thromboplast Time 37.8 Seconds (24.1-36.2)
[2022-08-25 11:53] LABS: BNP,B-Type NATRIURETIC PEPTIDE 156.2 pg/mL (0-100)
[2022-08-25 12:50] LABS: Reflex Troponin-HS? (from REC) Y
[2022-08-25 13:39] LABS: Troponin-I HS 8 pg/mL (3.0-78.0)
--- NOTE | 2022-08-25 20:42 | ED.RN ---
THIS RN CALLED PT REPORT TO [facility] AT 2041. PT REPORT TAKEN BY CROW SCOTT ON UNIT J62.
== END 2022-08-25 20:58 | disposition other institution (70) ==
PROVIDERS: Emergency Provider Emergency Medicine; PCP Family Medicine; Visit Provider Emergency Medicine
DX: I31.39 Other pericardial effusion (noninflammatory) (principal); R07.9 Chest pain, unspecified; R06.09 Other forms of dyspnea; R00.0 Tachycardia, unspecified; I10 Essential (primary) hypertension; G47.33 Obstructive sleep apnea (adult) (pediatric); K76.0 Fatty (change of) liver, not elsewhere classified; Z86.16 Personal history of COVID-19; Z79.82 Long term (current) use of aspirin; Z79.899 Other long term (current) drug therapy; Z79.01 Long term (current) use of anticoagulants
CPT/HCPCS: 71275; 80048; 83880; 84484; 85025; 85610; 85730; 87811; 93005; 93306; 99285; Q9957; Q9967; A4216; C8929

== ENCOUNTER → 2022-09-05 | Outpatient (CLI) | payer BC, MEDICAID, SELFPAY ==
--- NOTE | 2022-09-05 09:45 | CR.HP_ITS ---
CR - History & Physical - General Arrival date:: 09/05/22 - \ Arrival time:: 09:30 Date of Referral:: 08/18/22 Date of CR Evaluation:: 09/05/22 Referring Physician: Dr. Blayne Hayes Primary Diagnosis: S/P Aortic Valve Replacement, Aortic Root Dilation - History of Present Cardiac Event Onset Date: Enter Onset Date of cardiac illnesses in Comment field below Current stable Angina Pectoris:: No Acute Myocardial Infarction within 12 months:: No Coronary Artery Bypass Graft:: No Heart valve replacement or repair:: Yes - Aortic Root Dilation w/ Aortic Valve Replacement PTCA or coronary stenting:: No Heart or Heart-Lung Transplant:: No Heart Failure EF <35%:: No Interventions with present event:: Heart cath, then sent to [facility] Were there any complications?: Developed fluid around the heart post op, put back in the hospital x 1 week - Sleep Disorder Evaluation Hx of Sleep Apnea: Yes Do you snore loudly (louder than talking or can be heard through closed doors)?: Yes Do you often feel tired/ fatigued/ sleepy during daytime?: No Has anyone observed you stop breathing during sleep?: No History of Hypertension (for STOP score): Yes - CARMEL diagnosis with no CPAP or BiPAP at home STOP Results: Positive - Medications Home Medications: Ambulatory Orders Medication Instructions Recorded aspirin 81 mg tablet,delayed 81 mg PO DAILY #1 TAB 06/10/22 release metoprolol succinate 100 mg 100 mg PO BID 08/01/22 tablet,extended release 24 hr lisinopril 10 mg tablet 10 mg PO DAILY 08/19/22 warfarin 10 mg tablet 5 mg PO DAILY 08/19/22 acetaminophen 500 mg tablet 1,000 mg PO Q6H PRN Pain 08/25/22 - Allergies Allergies/Adverse Reactions: Allergies formoterol [From Dulera] Adverse Reaction (Unknown, Verified 08/25/22 10:37) Headache mometasone furoate [From Asmanex Twisthaler] Adverse Reaction (Unknown, Verified 08/25/22 10:37) Mouth Sores Advanced Directives - Advanced Directives Power of Financial Analyst Accountant: No Living Will: No Advance Directives Information Provided: No Advance Directives on File: No DNR Order?:: No - MOLST See MOLST form: No Past Medical History - Covid-19 Screening Fever: No Unexplained muscle aches: No Current respiratory symptoms: No Upper respiratory infections symptoms: Yes - Recently developed a cold from children Gastro-intestinal symptoms: No [id number] symptoms: Yes - Chronic Rhinitis Has tested positive for COVID-19 in last 30 days: No Date of testin09/05/22 - had initial vaccines, did have COVID-19 Had contact w/person w/symptoms or Covid-19 (+) last 14 days: No Has High Risk Exposures ID'd by Health dept/Inf Control team: No 65 years or older:: No Lives in Assisted Living facility:: No Has a chronic lung disease or moderate to severe asthma:: Yes Has a serious heart condition:: No Immunocompromised:: No Severely obese (Body Mass Index of 40 or higher):: No Diabetic:: No Has chronic kidney disease undergoing dialysis:: No Has liver disease:: No - Past Medical Illness Medical History: Past Medical History (Last Reviewed 08/25/22 @ 10:[address] Leodan Machado DO) Anal fissure K60.2 Aortic root dilatation I77.810 Aortic stenosis I35.0 Arthritis M19.90 Asthma J45.909 Bicuspid aortic valve Q23.1 Blood in stool K92.1 BRBPR (bright red blood per rectum) K62.5 Cardiac murmur R01.1 Carpal tunnel syndrome G56.00 Chest pain R07.9 COVID-19 U07.1 Essential hypertension I10 Fatty liver K76.0 Heart murmur R01.1 History of back problems Hypertension I10 Lumbar stenosis M48.061 Migraines G43.909 Obesity E66.9 CARMEL (obstructive sleep apnea) G47.33 Pneumonia J18.9 Pneumonia due to COVID-19 virus U07.1, J12.82 Sciatica M54.30 Severe aortic valve stenosis I35.0 SOB (shortness of breath) R06.02 - Past Surgical History Surgical History: Past Surgical History (Last Reviewed 08/25/22 @ 10:[address] Leodan Machado DO) H/O rhinoplasty Z98.890 History of mechanical aortic valve replacement Onset Date: ~07/19/22 Z95.[address] #23[address] [facility] Mechanical Valve @ [facility] 07/19/22 S/p bilateral carpal tunnel release Z98.890 - Family History Summary Family History: Family History (Last Reviewed 08/25/22 @ 10:[address] 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 Left click = Reports ([place]) Review of Present Symptoms: Reports: Wound Healing, Fatigue. Denies: Shortness of Breath at Rest, Shortness of Breath with Exertion, Operative Discomfort, Dizziness/Lightheadedness, Heart Arrhythmia/Irregularities, Appetite - Normal - a little less so eating less which is a good thing for him, he is trying to lose soem weight., Appetite - Special Diet, Sleep - Normal - CARMEL, recliner and couch - Pain Is Patient Pain Free?: No Pain Location: chest - right side of chest is still sore, has been coughing and sneezing. Pain Level: 2/10 Risk Factor Assessment - Chief Complaint Chief Complaint: Patient is a 46 yr old male patient of Dr. Hayes'victoriano who presents to cardiac rehab today following recent aortic root dilation and aortic valve replacement. About one week post op he developed fluid around his heart with an increase in shortness of breath and acute fatigue and was readmitted for about a week. - Vital Signs Temperature: 98.6 F Respiratory Rate: 14 Pulse Ox: 98 Blood Pressure: 128/75 - Pulse Pulse Rate: 96 Pulse Rhythm: Regular - Hypertension Blood Pressure Sitting - Left Arm: 128/75 - Obesity Height: 5 ft 9 in Weight:: 278 lb Weight in Pounds: 278.0 lbs Weight Source: Stated by Patient Body Mass Index (BMI): 41.0 Nutritional Referral for Obesity: Yes - Physical Inactivity Physical Inactivity: Reg Exercise 30 min/day - Risk Stratification Risk Guidelines: Lowest Risk: Risk Factor for Smoking, Risk Factor for Diabetes, Risk Factor for Sedentary Lifestyle, Risk Factor for Depression, Moderate Risk: Risk Factor for Hypertension - 128/93, Highest Risk: Risk Factor for Obesity - Family History Family History: Family History (Last Reviewed 08/25/22 @ 10:[address] Leodan Machado, DO) Mother Hypertension Kidney disease Father Hypertension Kidney disease CAD (coronary artery disease) History of coronary artery bypass surgery Grandfather Diabetes Grandmother Diabetes Motivation - Motivation to Participate On a scale of 1 to 10, how prepared are you to commit to attending program?: 10 What do you see as barriers to successfully being able to complete the program?: no What do you see as the benefits of succesfully completing the program? In other words, what do you hope to get out of participating in the program?: increase energy level, return to work Are there issues you are dealing with that will interfere with completing the program?: none Do you have a spouse or signficant other, family or friends who will help support you to complete the program?: yes
--- NOTE | 2022-09-05 09:45 | PCM.CR.ITP ---
Diagnosis - General Information Admitting Diagnosis: SP Heart Valve Replacement Secondary Diagnosis: Aortic Valve Replacement, hypertension, Obesity, aortic root dilation Personal Learning Style:: Audio/Visual, Written Barriers to Learning: Vision Impairment Stage of change r/t lifestyle modifications:: Action Gave educational material for:: Treating Heart Disease, Emotions & Heart Disease, Stress Management & Relaxation, Sleep Disorders & Heart Disease, How The Heart Works, What it means to have Heart Disease, How Coronary Artery Disease is Diagnosed, Heart Procedures, What Heart Medications Do, Risk Factors & Modifications, Living an Active Life, Nutrition - Education/Goals Individual Counseling: Initial Assessment: High Blood Pressure, Overweight/Obesity - BMI 41.2 Cardiac Rehabilitation Goals: 1. Maintain the individual as the primary focus of care. 2. To improve the patient's quality of life. 3. Identification of cardiac risk factors and provide cardiac risk factor management. 4. Enhance the psychosocial status of the patient. 5. Reconditioning enough to allow the patient to resume customary activities. 6. Control symptoms of cardiac disease Personal Goals: Initial Assessment: Improve energy level, Get back to work, or to resume activities faster, Improve muscle strength and endurance Scale for measuring improvement of personal goals: Enter appropriate number in Comments. 2 = Unchanged. 3 = Slightly Better. 4 = Moderate Improvement. 5 = Met my Goal - Diagnosis & Disease Process Outcomes/Goals: Pt IDs own risk factors & lifestyle modifications by Session 10, Verbalizes symptoms of angina & response by session 3., Pt independently manages Plan/Interventions: Assist Pt to ID & engage in lifestyle modification to reduce CVD risk, Instruct on individual risk factors, Review symptoms of angina & emergency actions, Review secondary diagnosis & identify educational needs. - Safety Referral to Physical Therapy: No Referral to [facility] Case Management: No Fall Risk Assessed:: Yes Assistive Devices:: None Exercise - Initial Assessment - Visit Date of Eval: 09/05/22 Session #:: 0 - Pre-cardiac rehab evaluation Mets: Pre-: >7 METS for 30 minutes by discharge - Physician Prescribed Exercise Modalities: Treadmill, Airdyne, NuStep - transition to Concept II Rower 8 weeks post op. Intensity: 60-80% of age predicted maximum heart rate reserve Duration: 30 - 45 minutes Current METSs:: 4.0 Target Heart Rate:: 112-130 w/ maximum HR 147 Resting Blood Pressure: 125/78 EKG Type: Sinus Rhythm Current Physical Activity or Exercising minutes: 30 - Outcomes & Goals Goals:: Verbalizes understanding of THR, RPE & goal METS by session 6, Documents in home exercise log/reports 30 min aerobic 5 day/wk by DC, Demonstrates accurate pulse taking by DC - Intervention & Plan Exercise Program Goals: Instruct on personal THR & RPE, Instruct on MET level & personal MET goal, Show patient to take own pulse /validate performance until accurate, Instruct on home exercise - Physical Activity Home Exercise Physical Activity - Home Exercise: Safe Exercise, Warm-up, Self-monitoring, Cool-Down, Home Exercise > 30 min Daily, Sitting Time <3 hours/daily - Outcomes & Goals Outcomes/Goals: Demonstrates correct Warm-up/exercise Cool-Down (S3) if = 2.5 METs, Verbalizes symptoms of exercise intolerance by Session 3 (S3), Demonstrate safe equipment use (S3) & follows exercise prescrition (6) - Intervention & Plan Plan/Intervention: Instruct warm-up & cool-down if exercising at > 2 METs, Instruct on symptoms of exercise intolerance & actions to take, Instruct & monitor on saf, Assess intial functional capacity & safety risk Nutrition - Initial Assessment - Program Goals Nutrition Program Goals: LDL <100 optimal. 100 - 129 Near optimal. 130 - 159 Borderline High. 160 - 189 High. Total Cholesterol <200 desirable. 200 - 239 Borderline High. >/= 240 High. HDL < 40 Low >/=60 High. Triglycerides <150 desirable. <199 optimal. VlDL 5 - 40. HgbA1C <7%. BMI <25 Patient has diagnosis of Hyperlipidemia (ICD E78)?: Yes - Visit Date of Assessment:: 09/05/22 Session #:: 0 - pre-cardiac rehab evaluation - Cholesterol/Lipids (Other Core Measures) Determine presence & major risk factors that modify LDL goal: Hypertension or hypertensive medication, Age men > 45 years; women >/= 55 years Outcomes/Goals: Pt IDs own risk factors & lifestyle modifications by Session 10, Verbalizes symptoms of angina & response by session 3., Pt independently manages Intervention/Plan: Instruct on personal lipid levels & lipid goals/NCEP guidelines, Instruct on cholesterol Referral to dietitian:: Yes - Medical Nutrition & Why Weight (weight loss) - Diabetes (Other Core Measures) Diabetes Type: Not Applicable - Weight Mgt (Other Care) Not Applicable: No Height: 5 ft 9 in Weight:: 278 lb BMI: 41.0 Diagnosis Overweight/Obesity BMI> 30% ICD-10 E66: Yes Diagnosis High BMI/Morbid Obesity BMI> 35% ICD-10 Z68: Yes Outcomes/Goals: Pt sets, maintains & shows weight loss goal & trend during rehab Intervention/Plan: Instruct on ideal BMI & set weight loss goal w/patient, Assist pt to ID & incorporate diet changes for weight loss by S9, Refer to Structured Weight Loss program as appropriate, Encourage goal of using 250-300dcal per session for weight loss - Healthy Eating Habits Will attend diet classes:: Yes Outcomes/Goals:: Consume diet rich in vegs,fruits,whole grain/high fiber,fish,lean meat, Limit sat/trans fats,cholesterol & added salts & sugars Intervention/Plan:: Assess current eating habits - Education Gave educational materials for:: Healthy eating Nutrition - 30-Day Assessment Nutrition - 60-Day Assessment Nutrition - 90-Day Assessment Nutrition - Final Assessment Core - Initial Assessment - Visit Date of Eval: 09/05/22 Session #:: 0 - Pre-cardiac Rehab Evaluation - Medication Compliance Preventative Medication(s):: Aspirin, Statin/lipid, Beta eric, Warfarin/Coumadin H/O mental health issues: depression, anxiety, or addiction?: No Doesn?t believe in the benefits of treatment?: No Believes medications are unnecessary or harmful?: No Has a concern about medication side effects?: No Expresses concern over the cost of medications?: No Outcomes/Goals: Verbalizes medications,desired effect & common side effects @ DC, Pt self-reports following medication regimen, Keeps card in wallet w/medications listed by DC Interventions/plans: Instruct on medication effects & side effects, Review medication list w/patient every two weeks, Instruct importance of taking meds as ordered & assist problem solving - Tobacco Use Tobacco Use: Non-smoker - Hypertension Hypertension Diagnosis:: Hypertension ICD-10 I10 Resting Blood Pressure:: 127/93 [place] [employer] Hypertension Guidelines: [place] [employer] Hypertension Guidelines. Normal BP Less than 120/80. Elevated BP 120/80. Hypertension Stage 1: BP 130-139/80-89. Hypertesnion Stage 2: BP 140 or higher/90 or higher. Hypertension Crisis: BP higher than 180/120 Outcomes/Goals: Able to verbalize/achieve optimal blood pressure <130/80, Incorporates diet changes & exercise for blood pressure control by DC Interventions/plan: Instruct on optimal blood pressure, hypertension & medications, Instruct on effects of sodium, alcohol, stress, exercise &hypertension - Tobacco Cessation Referral Smoking Cessation Referral:: No Individual Education/Counseling:: No Education Schedule Given:: Yes Core - 30-Day Assessment Core - 60-Day Assessment Core - 90 Day Assessment Core - Final Assessment Psychosocial - Initial Assess - VIsit Date of Eval: 09/05/22 Session #:: 0 - Pre-cardiac Rehab evaluation Not Applicable: Yes History of previous Mental disease:: No - Psychosocial Test Tool Used:: [employer] Power QOL Cardiac, PHQ-9 Questionnaire phq-9 Severity: Severity. 1-4 Minimal Depression. 5-9 Mild Depression. 10-14 Moderate Depression. 15-19 Moderately Sever Depression. 20-27 Severe Depression. Rule: - Referral to Behavioral Health PS - Interventions: Yes Attend Stress Management Classes, No Referral to Behavioral Health if PHQ-9 score >9:, No Referral to [facility], No Referral to Physician if PHQ-9 if score is 5-9: - Outcomes/Goals: See list Psychosocial Outcomes/Goals:: ID's personal stressors & 2 strategies to manage stress by discharge - Intervention/Plan: See List Interventions/Plan:: Assess stressors,coping strategies & signs of derpression on admission, Instruct/assist pt to develop coping & personal stress Mgt strategies, Instruct patient to recognize signs & symptoms of depression, Instruct patient to recog Psychosocial - 30-Day Assess Psychosocial - 60-Day Assess Psychosocial - 90-Day Assess Psychosocial - Final Assessmen Patient Health Questionnaire Initial Assessment 1. Little interest or pleasure in doing things: Nearly every day 2. Feeling down, depressed, or hopeless: More than half the days 3. Trouble falling or staying asleep, or sleeping too much: More than half the days 4. Feeling tired or having little energy: Nearly every day 5. Poor appetite or overeating: Not at all 6. Feeling bad about yourself -- or that you are a failure or have let yourself or your family down: Several days 7. Trouble concentrating on things, such as reading the newspaper or watching television: Several days 8. Moving or speaking so slowly that other people could have noticed. Or the opposite - being so fidgety or restless that you have been moving around a lot more than usual: Several days 9. Thoughts that you would be better off , or of hurting yourself in some way: Not at all How difficult have these problems made it for you to do your work, take care of things at home, or get along with other people?: Not difficult at all Total Score: 13 ROSIE-Q SV Test - Statements CAD is a disease of the arteries in the heart: False Examples of risk factors for heart disease: True Angina is chest pain or discomfort: I Don't Know The benefits of resistance training include: I Don't Know Eating more meat and dairy products: I Don't Know Anti-platelet medications such as aspirin are important: True The only effective way to manage stress: False An exercise warm-up slowly increases heart rate: True Prepared, processed foods usually have high sodium: True Depression is common after a heart attack: True The statin medications lower cholesterol: I Don't Know To control blood pressure, lower the amount of sodium: True If someone gets chest discomfort during walking: False Transfats are partially hydrogenated vegetable oils: I Don't Know Sleep apnea that is not treated increases the risk: False To control cholesterol, one should become a vegetarian: I Don't Know Someone knows if he/she is exercising at the right level: True Diabetes cannot be prevented with exercise & health eating: True Stress is a large risk for heart attack: True A diet that can help lower blood pressure is rich in: I Don't Know - Total Score Total Correct Responses: 12 Self-Efficacy Initial Assessment We would like to know how confident you are in doing certain activities. Please select your confidence level for:: Select your confidence level for the following using the scale 1-10 where 1 is not at all confident and 10 is totally confident. Your score is the average of all 6 responses. Fatigue: How confident are you that you can keep the fatigue caused by your disease from interfering with the things you want to do? Select Number: 5 Physical Discomfort or Pain: How confident are you that you can keep the physical discomfort or pain of your disease from interfering with the things you want to do? Select Number: 5 Emotional Distress: How confident are you that you can keep the emotional distress caused by your disease from interfering with the things you want to do? Select Number: 7 Other Symptoms or Health Problems: How confident are you that you can keep other symptoms or health problems from interfering with the things you want to do? Select Number: 6 Different Tasks and Activities: How confident are you that you can do the different tasks and activities needed to manage your health condition so as to reduce your need to see a doctor? Select Number: 6 Medication: How confident are you that you can do things other than just taking medication to reduce how much your illness affects your everyday life? Select Number: 6 Total Score:: 5 Nutrition Survey - Nutrition Survey Initial Have you lost >10 lbs over the past 2 months without trying?: No Are you following a special diet at home for diabetes, low fat, or low salt?: No Are you interested in meeting with a dietitian for help understanding your diet?: No Do you eat less than 3 meals a day?: No Do you eat fatty meats (olea, sausage, ribs, etc), fried foods, desserts, large amounts of salad dressings, margarine, butter, or cheese most days?: No Do you have food allergies? [Enter types in comment field]: No Do you eat in restaurants more than 3 times a week?: No Do you season food with salt, seasoning salt, or garlic salt?: No Do you used canned, boxed, frozen meals, or soups, seasoning packets?: Yes Total Score:: 1
[2022-09-05 10:13] VITALS: BP 128/75; PULSE 96; RESP 14; TEMP 37; O2SAT 98; BMI 41.0
[2022-09-05 10:30] VITALS: BP 125/78; BP 127/93; BMI 41.0
== END | disposition home or self-care (01) ==
PROVIDERS: PCP Family Medicine; Visit Provider Internal Medicine Cardiovascular Disease
DX: I77.810 Thoracic aortic ectasia (principal); I10 Essential (primary) hypertension; E66.9 Obesity, unspecified; G47.33 Obstructive sleep apnea (adult) (pediatric); Z95.2 Presence of prosthetic heart valve

== ENCOUNTER 2022-09-19 11:30 | Outpatient (RCR) | payer BC, MEDICAID, SELFPAY ==
[2022-09-05 10:30] VITALS: BMI 41.0
== END 2022-09-20 23:59 ==
LOC: CR 11:30
PROVIDERS: PCP Family Medicine; Referring Provider Internal Medicine Cardiovascular Disease; Visit Provider Internal Medicine Cardiovascular Disease
DX: Z95.2 Presence of prosthetic heart valve (principal)
CPT/HCPCS: 93798

== ENCOUNTER → 2022-09-20 | Outpatient (CLI) | payer BC, MEDICAID, SELFPAY ==
[2022-09-05 10:30] VITALS: BMI 41.0
--- NOTE | 2022-09-20 10:00 | RAD_ITS ---
EXAM: XR CHEST, 2 VIEWS CLINICAL INDICATION: Re-evaluted post cardiac intervention TECHNIQUE: Frontal and lateral views of the chest. This report was created using [employer] report generation technology. COMPARISON: 07.05.22 FINDINGS: LUNGS AND PLEURAL SPACES: Unremarkable. No consolidation or edema. No pneumothorax. No effusion. HEART: Unremarkable. Cardiac silhouette not enlarged. MEDIASTINUM: Central airways and mediastinal contour are unremarkable. BONES/JOINTS: Multiple median sternotomy wires are noted consistent for cardiac surgery. SOFT TISSUES: Unremarkable. RAD/Chest PA and Lateral IMPRESSION: No acute findings in the chest. Electronically Signed: Sudarshan Alexander MD at 17:01 EST ,
== END | disposition home or self-care (01) ==
LOC: RAD 09:56
PROVIDERS: PCP Family Medicine; Visit Provider Nurse Practitioner Family
DX: I31.39 Other pericardial effusion (noninflammatory) (principal); Z95.2 Presence of prosthetic heart valve
CPT/HCPCS: 71046

== ENCOUNTER → 2022-09-28 | Outpatient (CLI) | payer BC, MEDICAID, SELFPAY ==
[2022-09-05 10:30] VITALS: BMI 41.0
--- NOTE | 2022-09-28 07:54 | ECHOL_ITS ---
Reason For Study: Pericardial Effusion Procedure This was a limited 2D transthoracic echocardiogram. The study was technically difficult. Full echo done 08/25/22 with [facility]. Limited views were obtained. Exam performed in department. Left Ventricle Left ventricular systolic function is normal. The estimated ejection fraction is 65 %. No regional wall motion abnormalities noted. Right Ventricle Normal systolic function. Atria Normal left atrium. Normal right atrium. Mitral Valve There is no mitral annular calcification. Mild diffuse mitral valve thickening. Tricuspid Valve Normal tricuspid valve. Aortic Valve Stable appearing mechanical aortic valve apparatus. Pulmonic Valve The pulmonic valve is not well visualized. Great Vessels Normal sized aortic root. Pericardium/Pleural No pericardial effusion. MMode/2D Measurements & Calculations LVIDd: 4.7 cm IVSd: 1.4 cm Ao root diam: 2.9 cm LVIDs: 3.1 cm LVPWd: 1.3 cm FS: 34.2 % LAV(MOD-bp): 29.1 ml LVAd ap4: 21.3 cm2 SV(MOD-sp4): 28.6 ml LAV(MOD-bp) Indexed: 12.2 ml/m2 LVLd ap4: 7.6 cm LAV(MOD-sp2): 32.3 ml EDV(MOD-sp4): 48.5 ml LAV(MOD-sp4): 26.6 ml EDV(sp4-el): 51.0 ml LVAs ap4: 12.4 cm2 LVLs ap4: 7.1 cm ESV(MOD-sp4): 19.9 ml ESV(sp4-el): 18.4 ml EF(MOD-sp4): 59.0 % EF(sp4-el): 63.9 % SV(sp4-el): 32.6 ml LA A4 area: 13.0 cm2 RA A4 area: 10.9 cm2 ECHO/Echo, Limited Study Interpretation Summary The study was technically difficult. Limited views were obtained. Left ventricular systolic function is normal. The estimated ejection fraction is 65 %. Mild diffuse mitral valve thickening. Stable appearing mechanical aortic valve apparatus. No pericardial effusion. Ordering Physician: Archie Chavarria Performed By: Laura Higgins
== END | disposition home or self-care (01) ==
LOC: CVS 07:53
PROVIDERS: PCP Family Medicine; Visit Provider Nurse Practitioner Family
DX: I31.39 Other pericardial effusion (noninflammatory) (principal); Z95.2 Presence of prosthetic heart valve
CPT/HCPCS: 93308

== ENCOUNTER → 2022-10-05 | Outpatient (CLI) | payer BC, MEDICAID, SELFPAY ==
[2022-10-03 08:38] VITALS: BMI 41.6
[2022-10-05 10:52] LABS: Absolute Lymphocyte Count 1.88 X10^3/uL (0.83-4.51); Absolute Neutrophil Count 2.4 X10^3/uL (2.0-7.7); Basophil# 0.04 X10^3/uL; Basophil% 0.8 % (0-1); Eosinophils% 5.8 % (0-5); Hematocrit 46.3 % (40-54); Lymphocyte # 1.88 X10^3/ul (0.83-4.51); Lymphocyte % 36.2 % (19-41); Mean Corp Hgb Conc 32.4 g/dL (32-36); Mean Corpuscular Hgb 27.1 pg (27.0-32.0); Mean Corpuscular Volume 83.7 fL (80-94); Mean Platelet Vol. 10.1 fl (6.2-12.0); Monocyte# 0.53 X10^3/uL; Monocyte% 10.2 % (0-10); NRBC Flagged by Analyzer 0 % (0-5); Neutrophil # 2.43 X10^3/uL (2.7-7.7); Neutrophil % 46.6 % (47-70); Platelet Count 244 K/mm3 (150-450); RBC Distribution Width CV 13.3 % (11.6-14.6); RBC Distribution Width SD 40.9 fl (35.1-43.9); Red Blood Count 5.53 M/mm3 (4.6-6.2); White Blood Count 5.2 K/mm3 (4.4-11.0)
[2022-10-05 11:10] LABS: Anion Gap 6 (5-15); BUN 18 mg/dL (7-18); Calcium,Total 8.9 mg/dL (8.5-10.1); Chloride 110 mmol/L (98-107); EST Glomerular Filtration Rate 96 mL/min (>60); Est Glom Filt Rate - Afr Amer 116 mL/min (>60); Glucose 110 mg/dL (74-106); Potassium 3.6 mmol/L (3.5-5.1); Sodium Level 142 mmol/L (136-145)
== END | disposition home or self-care (01) ==
LOC: LAB 10:09
PROVIDERS: PCP Family Medicine; Referring Provider Nurse Practitioner Family; Visit Provider Nurse Practitioner Family
DX: I31.39 Other pericardial effusion (noninflammatory) (principal); Z95.2 Presence of prosthetic heart valve
CPT/HCPCS: 36415; 80048; 85025

== ENCOUNTER 2022-10-21 15:45 | Outpatient (RCR) | payer BC, MEDICAID, SELFPAY ==
[2022-09-05 10:30] VITALS: BMI 41.0
--- NOTE | 2022-10-03 08:26 | CR.ITP_ITS ---
Diagnosis Exercise - 30-day Assessment - Visit Date of Eval: 10/03/22 Session #:: 11 - Physician Prescribed Exercise Modalities: Treadmill, Airdyne, NuStep Frequency: 3x/week for 12 weeks [36 sessions] Intensity: 60-80% of age predicted maximum heart rate reserve Current METSs:: 5 Target Heart Rate:: 112-130 Current RPE:: 11-12 Maximum Excercise HR:: 141 Resting Blood Pressure: 128/90 Maximum Exercise Blood Pressure: 190/100 EKG Type: NSR to ST with occas pvc, Twave inversion - Outcomes & Goals Goals:: Verbalizes understanding of THR, RPE & goal METS by session 6, Documents in home exercise log/reports 30 min aerobic 5 day/wk by DC, Demonstrates accurate pulse taking by DC, Other additional outcome/goals: see below - Intervention & Plan Exercise Program Goals: Instruct on personal THR & RPE, Instruct on MET level & personal MET goal, Show patient to take own pulse /validate performance until accurate, Instruct on home exercise, Other additional plan/int - 30-day Reassessments 30 day Reassessments:: Progressing - THR explained - Physical Activity Home Exercise Physical Activity - Home Exercise: Safe Exercise, Warm-up, Self-monitoring, Cool-Down, Home Exercise > 30 min Daily, Sitting Time <3 hours/daily - Outcomes & Goals Outcomes/Goals: Demonstrates correct Warm-up/exercise Cool-Down (S3) if = 2.5 METs, Verbalizes symptoms of exercise intolerance by Session 3 (S3), Demonstrate safe equipment use (S3) & follows exercise prescrition (6), Other: See below - Intervention & Plan Plan/Intervention: Instruct warm-up & cool-down if exercising at > 2 METs, Instruct on symptoms of exercise intolerance & actions to take, Instruct & monitor on saf, Assess intial functional capacity & safety risk, Other See below - 30-day Reassessments 30 day Reassessments:: Progressing - cool down encourged Nutrition - Initial Assessment Nutrition - 30-Day Assessment - Program Goals Nutrition Program Goals: LDL <100 optimal. 100 - 129 Near optimal. 130 - 159 Borderline High. 160 - 189 High. Total Cholesterol <200 desirable. 200 - 239 Borderline High. >/= 240 High. HDL < 40 Low >/=60 High. Triglycerides <150 desirable. <199 optimal. VlDL 5 - 40. HgbA1C <7%. BMI <25 Patient has diagnosis of Hyperlipidemia (ICD E78)?: Yes - Visit Date of Assessment:: 10/03/22 Session #:: 11 - Cholesterol/Lipids (Other Core Measures) Determine presence & major risk factors that modify LDL goal: Hypertension or hypertensive medication, Low HDL cholesterol <40 mg/dL*, Family history of premature CHD in Male < 55 years: female <65 yearsFa, Age men > 45 years; women >/= 55 years Outcomes/Goals: Pt IDs own risk factors & lifestyle modifications by Session 10, Verbalizes symptoms of angina & response by session 3., Pt independently manages, Other Additional Outcomes/Goals: Intervention/Plan: Advocate for lipid panel cholesterol medication if applicabl e, Instruct on personal lipid levels & lipid goals/NCEP guidelines, Instruct on cholesterol, Other additional plan/int 30-day Reassessments:: Progressing - risk factors explained - Weight Mgt (Other Care) Height: 5 ft 9 in Weight:: 127.913 kg BMI: 41.6 Diagnosis Overweight/Obesity BMI> 30% ICD-10 E66: Yes Diagnosis High BMI/Morbid Obesity BMI> 35% ICD-10 Z68: Yes Outcomes/Goals: Pt sets, maintains & shows weight loss goal & trend during rehab, Other additional outcomes/goals Intervention/Plan: Instruct on ideal BMI & set weight loss goal w/patient, Assist pt to ID & incorporate diet changes for weight loss by S9, Refer to Structured Weight Loss program as appropriate, Encourage goal of using 250- 300dcal per session for weight loss, Other additional plan/interventions 30 day Reassessments:: Progressing - will attend nutrition class - Healthy Eating Habits Will attend diet classes:: Yes Outcomes/Goals:: Consume diet rich in vegs,fruits,whole grain/high fiber,fish,lean meat, Limit sat/trans fats,cholesterol & added salts & sugars, Other additional outcome/goals: Intervention/Plan:: Assess current eating habits, Other Additional plan/interventions 30-day Reassessments:: Progressing - will attend nutritin class - Education Gave educational materials for:: Signs & symptoms of hypoglycemia, Signs & symptoms of hyperglycemia, Relate diabetes to coronary artery disease, Healthy eating Nutrition - 60-Day Assessment Nutrition - 90-Day Assessment Nutrition - Final Assessment Core - Initial Assessment Core - 30-Day Assessment - Visit Date of Eval: 10/03/22 Session #:: 11 - Medication Compliance Preventative Medication(s):: Aspirin, Statin/lipid, Beta eric, Warfarin/Coumadin Doesn?t believe in the benefits of treatment?: No Believes medications are unnecessary or harmful?: No Has a concern about medication side effects?: No Expresses concern over the cost of medications?: No Outcomes/Goals: Verbalizes medications,desired effect & common side effects @ DC, Pt self-reports following medication regimen, Keeps card in wallet w/medications listed by DC, Other additional outcome/goals: Interventions/plans: Instruct on medication effects & side effects, Review medication list w/patient every two weeks, Instruct importance of taking meds as ordered & assist problem solving, Other additional 30-day Reassessments:: Progressing - encouraged to take meds - Tobacco Use Tobacco Use: Non-smoker - Hypertension Hypertension Diagnosis:: Hypertension ICD-10 I10 - 128/90 Resting Blood Pressure:: 128/90 [place] [employer] Hypertension Guidelines: [place] [employer] Hypertension Guidelines. Normal BP Less than 120/80. Elevated BP 120/80. Hypertension Stage 1: BP 130-139/80-89. Hypertesnion Stage 2: BP 140 or higher/90 or higher. Hypertension Crisis: BP higher than 180/120 Peak Exercise Blood Pressure:: 190/100 Outcomes/Goals: Able to verbalize/achieve optimal blood pressure <130/80, Incorporates diet changes & exercise for blood pressure control by DC, Other additional outcomes/goals Interventions/plan: Instruct on optimal blood pressure, hypertension & medications, Instruct on effects of sodium, alcohol, stress, exercise &hypertension, Other additional plan/interventions 30 day Reassessments:: Progressing - encouraged to take meds - Tobacco Cessation Referral Smoking Cessation Referral:: No Individual Education/Counseling:: No Education Schedule Given:: Yes Core - 60-Day Assessment Core - 90 Day Assessment Core - Final Assessment Psychosocial - Initial Assess Psychosocial - 30-Day Assess - VIsit Date of Eval: 10/03/22 Session #:: 11 History of previous Mental disease:: No Psychosocial - 60-Day Assess Psychosocial - 90-Day Assess Psychosocial - Final Assessmen Patient Health Questionnaire 30-Day Re-eval Assessment 1. Little interest or pleasure in doing things: Nearly every day 2. Feeling down, depressed, or hopeless: More than half the days 3. Trouble falling or staying asleep, or sleeping too much: More than half the days 4. Feeling tired or having little energy: Nearly every day 5. Poor appetite or overeating: Not at all 6. Feeling bad about yourself -- or that you are a failure or have let yourself or your family down: Several days 7. Trouble concentrating on things, such as reading the newspaper or watching television: Several days 8. Moving or speaking so slowly that other people could have noticed. Or the opposite - being so fidgety or restless that you have been moving around a lot more than usual: Several days 9. Thoughts that you would be better off , or of hurting yourself in some way: Not at all How difficult have these problems made it for you to do your work, take care of things at home, or get along with other people?: Not difficult at all Total Score: 13 Self-Efficacy 30-Day Re-eval Assessment We would like to know how confident you are in doing certain activities. Please select your confidence level for:: Select your confidence level for the following using the scale 1-10 where 1 is not at all confident and 10 is totally confident. Your score is the average of all 6 responses. Fatigue: How confident are you that you can keep the fatigue caused by your disease from interfering with the things you want to do? Select Number: 5 Physical Discomfort or Pain: How confident are you that you can keep the physical discomfort or pain of your disease from interfering with the things you want to do? Select Number: 5 Emotional Distress: How confident are you that you can keep the emotional distress caused by your disease from interfering with the things you want to do? Select Number: 7 Other Symptoms or Health Problems: How confident are you that you can keep other symptoms or health problems from interfering with the things you want to do? Select Number: 6 Different Tasks and Activities: How confident are you that you can do the different tasks and activities needed to manage your health condition so as to reduce your need to see a doctor? Select Number: 6 Medication: How confident are you that you can do things other than just taking medication to reduce how much your illness affects your everyday life? Select Number: 6 Total Score:: 5 Nutrition Survey
[2022-10-03 08:38] VITALS: BP 128/90; BP 190/100; BMI 41.6
== END 2022-10-21 23:59 ==
LOC: CR 15:45
PROVIDERS: PCP Family Medicine; Referring Provider Internal Medicine Cardiovascular Disease; Visit Provider Internal Medicine Cardiovascular Disease
DX: Z95.2 Presence of prosthetic heart valve (principal)
CPT/HCPCS: 93798

== ENCOUNTER 2022-11-16 15:45 | Outpatient (RCR) | payer BC, MEDICAID, SELFPAY ==
[2022-10-03 08:38] VITALS: BMI 41.6
[2022-10-22 02:00] VITALS: BP 128/90; BP 190/100
--- NOTE | 2022-11-02 10:13 | CR.ITP_ITS ---
Diagnosis Exercise - 60-day Assessment - Visit Date of Eval: 11/02/22 Session #:: 23 - Physician Prescribed Exercise Modalities: Treadmill, Airdyne, NuStep Frequency: 3x/week for 12 weeks [36 sessions] Intensity: 60-80% of age predicted maximum heart rate reserve Current METSs:: 6 Target Heart Rate:: 112-130 Current RPE:: 11-12 Maximum Excercise HR:: 107 Resting Blood Pressure: 160/88 Maximum Exercise Blood Pressure: 162/88 EKG Type: NSR to ST with occas PVC's - Outcomes & Goals Goals:: Verbalizes understanding of THR, RPE & goal METS by session 6, Documents in home exercise log/reports 30 min aerobic 5 day/wk by DC, Demonstrates accurate pulse taking by DC, Other additional outcome/goals: see below - Intervention & Plan Exercise Program Goals: Instruct on personal THR & RPE, Instruct on MET level & personal MET goal, Show patient to take own pulse /validate performance until accurate, Instruct on home exercise, Other additional plan/int - 30-day Reassessments 30 day Reassessments:: Progressing - THR explained - Physical Activity Home Exercise Physical Activity - Home Exercise: Safe Exercise, Warm-up, Self-monitoring, Cool-Down, Home Exercise > 30 min Daily, Sitting Time <3 hours/daily - Outcomes & Goals Outcomes/Goals: Demonstrates correct Warm-up/exercise Cool-Down (S3) if = 2.5 METs, Verbalizes symptoms of exercise intolerance by Session 3 (S3), Demonstrate safe equipment use (S3) & follows exercise prescrition (6), Other: See below - Intervention & Plan Plan/Intervention: Instruct warm-up & cool-down if exercising at > 2 METs, Instruct on symptoms of exercise intolerance & actions to take, Instruct & monitor on saf, Assess intial functional capacity & safety risk, Other See below - 30-day Reassessments 30 day Reassessments:: Progressing - cool down encouraged Nutrition - Initial Assessment Nutrition - 30-Day Assessment Nutrition - 60-Day Assessment - Program Goals Nutrition Program Goals: LDL <100 optimal. 100 - 129 Near optimal. 130 - 159 Borderline High. 160 - 189 High. Total Cholesterol <200 desirable. 200 - 239 Borderline High. >/= 240 High. HDL < 40 Low >/=60 High. Triglycerides <150 desirable. <199 optimal. VlDL 5 - 40. HgbA1C <7%. BMI <25 Patient has diagnosis of Hyperlipidemia (ICD E78)?: Yes - Visit Date of Assessment:: 11/02/22 Session #:: 23 - Cholesterol/Lipids (Other Core Measures) Determine presence & major risk factors that modify LDL goal: Hypertension or hypertensive medication, Low HDL cholesterol <40 mg/dL*, Family history of premature CHD in Male < 55 years: female <65 yearsFa, Age men > 45 years; women >/= 55 years Outcomes/Goals: Pt IDs own risk factors & lifestyle modifications by Session 10, Verbalizes symptoms of angina & response by session 3., Pt independently manages, Other Additional Outcomes/Goals: Intervention/Plan: Advocate for lipid panel cholesterol medication if applicable, Instruct on personal lipid levels & lipid goals/NCEP guidelines, Instruct on cholesterol, Other additional plan/int Referral to dietitian:: No - pt has declined 30-day Reassessments:: Progressing - will attend nutrition class - Weight Mgt (Other Care) Height: 5 ft 9 in Weight:: 127.459 kg BMI: 41.5 Diagnosis Overweight/Obesity BMI> 30% ICD-10 E66: Yes Diagnosis High BMI/Morbid Obesity BMI> 35% ICD-10 Z68: Yes Outcomes/Goals: Pt sets, maintains & shows weight loss goal & trend during rehab, Other additional outcomes/goals Intervention/Plan: Instruct on ideal BMI & set weight loss goal w/patient, Assist pt to ID & incorporate diet changes for weight loss by S9, Refer to Structured Weight Loss program as appropriate, Encourage goal of using 250- 300dcal per session for weight loss, Other additional plan/interventions 30 day Reassessments:: Progressing - pt will attend nutrition class - Healthy Eating Habits Will attend diet classes:: Yes Outcomes/Goals:: Consume diet rich in vegs,fruits,whole grain/high fiber,fish,l howard meat, Limit sat/trans fats,cholesterol & added salts & sugars, Other additional outcome/goals: Intervention/Plan:: Assess current eating habits, Other Additional plan/inte rventions 30-day Reassessments:: Progressing - pt will attend nutrition class - Education Gave educational materials for:: Signs & symptoms of hypoglycemia, Signs & symptoms of hyperglycemia, Relate diabetes to coronary artery disease, Healthy eating Nutrition - 90-Day Assessment Nutrition - Final Assessment Core - Initial Assessment Core - 30-Day Assessment Core - 60-Day Assessment - Visit Date of Eval: 11/02/22 Session #:: 23 - Medication Compliance Preventative Medication(s):: Aspirin, Statin/lipid, Beta eric, Warfarin/Coumadin H/O mental health issues: depression, anxiety, or addiction?: No Doesn?t believe in the benefits of treatment?: No Believes medications are unnecessary or harmful?: No Has a concern about medication side effects?: No Expresses concern over the cost of medications?: No Outcomes/Goals: Verbalizes medications,desired effect & common side effects @ DC, Pt self-reports following medication regimen, Keeps card in wallet w/medications listed by DC, Other additional outcome/goals: Interventions/plans: Instruct on medication effects & side effects, Review medication list w/patient every two weeks, Instruct importance of taking meds as ordered & assist problem solving, Other additional 30-day Reassessments:: Progressing - encouraged to take meds - Tobacco Use Tobacco Use: Non-smoker - Hypertension Hypertension Diagnosis:: Hypertension ICD-10 I10 Resting Blood Pressure:: 160/88 [place] [employer] Hypertension Guidelines: [place] [employer] Hypertension Guidelines. Normal BP Less than 120/80. Elevated BP 120/80. Hypertension Stage 1: BP 130-139/80-89. Hypertesnion Stage 2: BP 140 or higher/90 or higher. Hypertension Crisis: BP higher than 180/120 Peak Exercise Blood Pressure:: 162/88 Outcomes/Goals: Able to verbalize/achieve optimal blood pressure <130/80, Incorporates diet changes & exercise for blood pressure control by DC, Other additional outcomes/goals Interventions/plan: Instruct on optimal blood pressure, hypertension & medications, Instruct on effects of sodium, alcohol, stress, exercise &hypertension, Other additional plan/interventions 30 day Reassessments:: Progressing - encouraged to take meds - Tobacco Cessation Referral Smoking Cessation Referral:: No Individual Education/Counseling:: No Education Schedule Given:: Yes Core - 90 Day Assessment Core - Final Assessment Psychosocial - Initial Assess Psychosocial - 30-Day Assess Psychosocial - 60-Day Assess - VIsit Date of Eval: 11/02/22 Psychosocial - 90-Day Assess Psychosocial - Final Assessmen Patient Health Questionnaire 60-Day Re-eval Assessment 1. Little interest or pleasure in doing things: Nearly every day 2. Feeling down, depressed, or hopeless: More than half the days 3. Trouble falling or staying asleep, or sleeping too much: More than half the days 4. Feeling tired or having little energy: Nearly every day 5. Poor appetite or overeating: Not at all 6. Feeling bad about yourself -- or that you are a failure or have let yourself or your family down: Several days 7. Trouble concentrating on things, such as reading the newspaper or watching television: Several days 8. Moving or speaking so slowly that other people could have noticed. Or the opposite - being so fidgety or restless that you have been moving around a lot more than usual: Several days 9. Thoughts that you would be better off , or of hurting yourself in some way: Not at all How difficult have these problems made it for you to do your work, take care of things at home, or get along with other people?: Not difficult at all Total Score: 13 Self-Efficacy 60-Day Re-eval Assessment We would like to know how confident you are in doing certain activities. Please select your confidence level for:: Select your confidence level for the following using the scale 1-10 where 1 is not at all confident and 10 is totally confident. Your score is the average of all 6 responses. Fatigue: How confident are you that you can keep the fatigue caused by your disease from interfering with the things you want to do? Select Number: 5 Physical Discomfort or Pain: How confident are you that you can keep the physical discomfort or pain of your disease from interfering with the things you want to do? Select Number: 5 Emotional Distress: How confident are you that you can keep the emotional distress caused by your disease from interfering with the things you want to do? Select Number: 7 Other Symptoms or Health Problems: How confident are you that you can keep other symptoms or health problems from interfering with the things you want to do? Select Number: 6 Different Tasks and Activities: How confident are you that you can do the different tasks and activities needed to manage your health condition so as to reduce your need to see a doctor? Select Number: 6 Medication: How confident are you that you can do things other than just taking medication to reduce how much your illness affects your everyday life? Select Number: 6 Total Score:: 5 Nutrition Survey
[2022-11-02 10:24] VITALS: BP 160/88; BP 162/88; BMI 41.5
== END 2022-11-20 23:59 ==
LOC: CR 15:45
PROVIDERS: PCP Family Medicine; Referring Provider Internal Medicine Cardiovascular Disease; Visit Provider Internal Medicine Cardiovascular Disease
DX: Z95.2 Presence of prosthetic heart valve (principal)
CPT/HCPCS: 93798

== ENCOUNTER 2022-12-14 15:45 | Outpatient (RCR) | payer BC, MEDICAID, SELFPAY ==
[2022-11-02 10:24] VITALS: BMI 41.5
[2022-11-21 00:39] VITALS: BP 160/88; BP 162/88
== END 2022-12-21 23:59 ==
LOC: CR 15:45
PROVIDERS: PCP Family Medicine; Referring Provider Internal Medicine Cardiovascular Disease; Visit Provider Internal Medicine Cardiovascular Disease
DX: Z95.2 Presence of prosthetic heart valve (principal)
CPT/HCPCS: 93798

== ENCOUNTER → 2023-03-24 | Outpatient (CLI) | payer BC, MEDICAID, SELFPAY ==
[2022-11-02 10:24] VITALS: BMI 41.5
== END | disposition home or self-care (01) ==
LOC: SL 20:07
PROVIDERS: PCP Family Medicine; Referring Provider Nurse Practitioner Acute Care; Visit Provider Nurse Practitioner Acute Care
DX: G47.33 Obstructive sleep apnea (adult) (pediatric) (principal)
CPT/HCPCS: 95811

== ENCOUNTER → 2023-04-21 | Outpatient (CLI) | payer BC, MEDICAID, SELFPAY ==
[2022-11-02 10:24] VITALS: BMI 41.5
== END | disposition home or self-care (01) ==
LOC: SL 14:25
PROVIDERS: PCP Family Medicine; Visit Provider Nurse Practitioner Acute Care
DX: Z46.89 Encounter for fitting and adjustment of other specified devices (principal)

== ENCOUNTER → 2023-07-20 | Outpatient (CLI) | payer BC, MEDICAID, SELFPAY ==
[2022-11-02 10:24] VITALS: BMI 41.5
[2023-07-20 17:09] LABS: Anion Gap 4 (5-15); BUN 21 mg/dL (7-18); BUN/Creat Ratio 22.9 RATIO (10-20); Calcium,Total 8.9 mg/dL (8.5-10.1); Chloride 109 mmol/L (98-107); Creatinine, Serum 0.92 mg/dL (0.70-1.30); EST Glomerular Filtration Rate 93 mL/min (>60); Est Glom Filt Rate - Afr Amer 113 mL/min (>60); Glucose 92 mg/dL (74-106); Potassium 4.1 mmol/L (3.5-5.1); Sodium Level 141 mmol/L (136-145)
== END | disposition home or self-care (01) ==
LOC: LAB 16:27
PROVIDERS: PCP Family Medicine; Referring Provider Nurse Practitioner Family; Visit Provider Nurse Practitioner Family
DX: I10 Essential (primary) hypertension (principal); Z95.2 Presence of prosthetic heart valve
CPT/HCPCS: 36415; 80048

== ENCOUNTER → 2023-09-29 | Outpatient (CLI) | payer BC, MEDICAID, SELFPAY ==
[2022-11-02 10:24] VITALS: BMI 41.5
--- NOTE | 2023-09-29 13:41 | ECHOCS_ITS ---
Reason For Study: Presence of Prosthetic Heart Valve Procedure This was a 2D Doppler, Color Flow transthoracic echocardiogram. Contrast injection was performed. Exam performed in department. Left Ventricle Normal LV size. Left ventricular systolic function is normal. The estimated ejection fraction is 55 %. No regional wall motion abnormalities noted. Right Ventricle Normal RV size. Normal systolic function. Atria Normal left atrium. Normal right atrium. Mitral Valve Normal mitral valve. Tricuspid Valve Normal tricuspid valve. Mild (1+) tricuspid valve insufficiency. Pulmonary artery systolic pressure is 24 mmHg. Aortic Valve Peak aortic valve gradient 17 mmHg. Mean aortic valve gradient 11 mmHg. Stable appearing mechanical aortic valve apparatus. Pulmonic Valve The pulmonic valve is not well visualized. Great Vessels Normal aortic root. The pulmonary artery is normal size. Normal inferior vena cava. Pericardium/Pleural No pericardial effusion. Medication Diluted definity 1ml given slow IV push to enhance endocardial definition. MMode/2D Measurements & Calculations LVIDd: 5.5 cm IVSd: 1.3 cm LVOT diam: 2.1 cm LVIDs: 3.4 cm LVPWd: 1.3 cm RVDd: 3.8 cm FS: 38.7 % LVOT area: 3.6 cm2 LAV(MOD-bp): 41.0 ml LVAd ap4: 31.5 cm2 SV(MOD-sp4): 54.8 ml LAV(MOD-bp) Indexed: 17.2 ml/m2 LVLd ap4: 8.4 cm LAV(MOD-sp2): 36.8 ml EDV(MOD-sp4): 99.5 ml LAV(MOD-sp4): 39.0 ml EDV(sp4-el): 100.9 ml LVAs ap4: 18.8 cm2 LVLs ap4: 6.7 cm ESV(MOD-sp4): 44.7 ml ESV(sp4-el): 44.7 ml EF(MOD-sp4): 55.1 % EF(sp4-el): 55.7 % SV(sp4-el): 56.2 ml LA A4 area: 16.5 cm2 RA A4 area: 13.4 cm2 TAPSE: 2.2 cm Time Measurements MV dec time: 0.18 sec Doppler Measurements & Calculations MV E max nathan: 82.3 cm/sec Lat Peak E' Nathan: 11.3 cm/sec Med Peak E' Nathan: 9.9 cm/sec MV A max nathan: 58.8 cm/sec E/E' lat: 7.3 E/E' med: 8.3 MV E/A: 1.4 Ao V2 max: 211.2 cm/sec LV V1 max: 147.5 cm/sec MV dec slope: 455.6 cm/sec2 Ao max P.9 mmHg LV V1 max P.7 mmHg Ao V2 mean: 160.6 cm/sec LV V1 mean P.3 mmHg Ao mean P.0 mmHg LV V1 mean: 122.0 cm/sec Ao V2 VTI: 40.3 cm LV V1 VTI: 32.2 cm AV (velocity ratio): 0.80 SALVATORE(I,D): 2.9 cm2 SALVATORE(V,D): 2.5 cm2 SV(LVOT): 115.9 ml PA V2 max: 110.4 cm/sec PI end-d nathan: 91.9 cm/sec TR max nathan: 226.2 cm/sec TR max P.5 mmHg ECHO/Echo Complete W/ Contrast Interpretation Summary Normal LV size. Left ventricular systolic function is normal. The estimated ejection fraction is 55 %. Stable appearing mechanical aortic valve apparatus. Peak aortic valve gradient 17 mmHg. Pulmonary artery systolic pressure is 24 mmHg. Contrast injection was performed. Ordering Physician: Archie Chavarria Referring Physician: Rayshawn Adhikari Performed By: Jaclyn Chavarria, RDCS, RVT
== END | disposition home or self-care (01) ==
LOC: CVS 13:41
PROVIDERS: PCP Family Medicine; Referring Provider Nurse Practitioner Family; Visit Provider Nurse Practitioner Family
DX: Z95.2 Presence of prosthetic heart valve (principal)
CPT/HCPCS: 93306; Q9957; A4216; C8929

== ENCOUNTER → 2024-07-16 | Outpatient (CLI) | payer BC, SELFPAY ==
[2024-06-22 11:40] VITALS: BMI 41.5
--- NOTE | 2024-07-16 07:14 | RAD_ITS ---
STUDY: X-RAY CHEST REASON FOR EXAM: Male, 48 years old. Continued URI symptoms from [facility] visit on TECHNIQUE: PA and lateral views of the chest. COMPARISON: 09/20/2022 FINDINGS: Status post median sternotomy and heart valve replacement. No change in left lower lobe scarring. There is no demonstrated pleural abnormality. Normal size heart. Normal mediastinum and jamie. Normal visualized pulmonary arteries. Normal visualized aortic arch and descending thoracic aorta. Normal visualized thoracic spine. Normal visualized ribs, clavicles, and shoulders. There is no demonstrated abnormality of the visualized soft tissue structures of the upper abdomen. RAD/Chest PA and Lateral IMPRESSION: No change from 09/20/2022. Electronically Signed: Pete Giron MD at 13:18 EST ,
== END | disposition home or self-care (01) ==
LOC: RAD 07:11
PROVIDERS: PCP Family Medicine; Referring Provider Nurse Practitioner Family; Visit Provider Nurse Practitioner Family
DX: R05.1 Acute cough (principal); J01.90 Acute sinusitis, unspecified
CPT/HCPCS: 71046

== ENCOUNTER → 2024-08-02 | Outpatient (CLI) | payer BC, SELFPAY ==
[2024-06-22 11:40] VITALS: BMI 41.5
== END | disposition home or self-care (01) ==
LOC: PSN 06:42
PROVIDERS: PCP Family Medicine; Referring Provider Nurse Practitioner Family; Visit Provider Nurse Practitioner Family
DX: R05.1 Acute cough (principal)
CPT/HCPCS: 94010; 94060; 94726; 94729

== ENCOUNTER → 2024-09-13 | Outpatient (CLI) | payer BC, SELFPAY ==
[2024-08-08 14:29] VITALS: BMI 41.5
[2024-09-13 16:35] LABS: Absolute Lymphocyte Count 2.48 X10^3/uL (0.83-4.51); Absolute Neutrophil Count 4.6 X10^3/uL (2.0-7.7); Basophil# 0.05 X10^3/uL; Basophil% 0.6 % (0-1); Eosinophil# 0.26 X10^3/uL; Eosinophils% 3.3 % (0-5); Hematocrit 43.2 % (40-54); Hemoglobin 14.6 g/dL (13.0-16.5); Lymphocyte # 2.48 X10^3/ul (0.83-4.51); Lymphocyte % 31.5 % (19-41); Mean Corp Hgb Conc 33.8 g/dL (32-36); Mean Corpuscular Hgb 28.6 pg (27.0-32.0); Mean Corpuscular Volume 84.7 fL (80-94); Monocyte# 0.47 X10^3/uL; NRBC Flagged by Analyzer 0 % (0-5); Neutrophil % 58.3 % (47-70); Platelet Count 272 K/mm3 (150-450); RBC Distribution Width CV 12.4 % (11.6-14.6); RBC Distribution Width SD 37.6 fl (35.1-43.9); White Blood Count 7.9 K/mm3 (4.4-11.0)
[2024-09-13 16:58] LABS: BNP,B-Type NATRIURETIC PEPTIDE 18.7 pg/mL (0-100)
[2024-09-13 17:05] LABS: ALB/GLOB Ratio 1.2 RATIO (0.9-2.4); AST(SGOT) 61 U/L (15-37); Alanine Aminotransfer ALT/SGPT 96 U/L (16-61); Alkaline Phosphatase 68 U/L (45-117); Anion Gap 4 (5-15); BUN 14 mg/dL (7-18); BUN/Creat Ratio 16.3 RATIO (10-20); Calcium,Total 8.9 mg/dL (8.5-10.1); Chloride 109 mmol/L (98-107); Creatinine, Serum 0.86 mg/dL (0.70-1.30); EST Glomerular Filtration Rate 101 mL/min (>60); Est Glom Filt Rate - Afr Amer 122 mL/min (>60); Globulin 3.2 g/dL (2.2-4.2); Glucose 98 mg/dL (74-106); Potassium 4.1 mmol/L (3.5-5.1); Protein, Total 7.2 g/dL (6.4-8.2); Sodium Level 142 mmol/L (136-145)
== END | disposition home or self-care (01) ==
LOC: LAB 15:52
PROVIDERS: PCP Family Medicine; Referring Provider Nurse Practitioner Family; Visit Provider Nurse Practitioner Family
DX: R06.00 Dyspnea, unspecified (principal); E66.01 Morbid (severe) obesity due to excess calories; Z68.41 Body mass index [BMI] 40.0-44.9, adult; I10 Essential (primary) hypertension; Z95.2 Presence of prosthetic heart valve
CPT/HCPCS: 36415; 80053; 83880; 85025

== ENCOUNTER → 2025-02-01 | Outpatient (CLI) | payer BC, SELFPAY ==
[2024-08-08 14:29] VITALS: BMI 41.5
--- OUTSIDE RECORDS SUMMARY | 2025-02-01 07:35 | XMS RPT_ITS | CCD ---
Author Organization [facility] Inform ion Partnership [employer] [facility] Care Team Providers Care Flight Steward Name Role Phone Unavailable Primary Care Provider UnavailDr. Rayshawn Duarte Primary Care Provider [phone] Dr. Rayshawn Cortes Referring Provider [phone] Gely RN SANE, RN SANE-C Tonya Attending Provider [phone] Dr. Blayne Hayes Attending Provider Dr. Blayne Hayes Referring Provider [phone] Dr. Blayne Hayes Other Provider [phone] Rayshawn Cortes MD Primary Care Provider UnavailBlayne Trujillo Unavailable Dr. Alin Kaur Attending Provider [phone] BELLE Flynn Attending Provider [phone] Dr. Rayshawn Cortes Primary Care Provider Dr. Rayshawn Cortes Referring Provider [phone] Miley Palacios Attending Provider Unavailable Aura SILVEIRA, RN SANE-C Archie Harris Attending Provider [phone] Dr. Renuka Soliman Attending Provider [phone] ANDREIA BATES Referring Unavailable GLORIA SMITH Attending Unavailable RAYSHAWN CORTES Primary Care Unavailable ANDREIA BATES Referring Unavailable RAYSHAWN CORTES Primary Care Unavailable LEODAN WHYTE Referring Unavailable ANDREIA BATES Attending Unavailable ANTHONY ANGLIN Admitting Unavailable RAYSHAWN CORTES Primary Care Unavailable ANDREIA BATES Admitting Unavailable SVENSSON, LARS G Attending Unavailable CORTES, RAYSHAWN Primary Care Unavailable NIDAENSKENNEDY, ANDREIA G Referring Unavailable CORTES, RAYSHAWN Primary Care Unavailable SVENSSON, ANDREIA G Referring Unavailable CORTES, RAYSHAWN Primary Care Unavailable CORTES, RAYSHAWN Primary Care Unavailable SVENSSON, ANDREIA G Referring Unavailable CORTES, RAYSHAWN Primary Care Unavailable SVENSSON, ANDREIA G Referring Unavailable COMBSHIRA Attending Unavailable CORTES, RAYSHAWN Primary Care Unavailable SVENSSON, ANDREIA G Referring Unavailable CORTES, RAYSHAWN Primary Care Unavailable SVENSSON, ANDREIA G Referring Unavailable SVENSSON, ANDREIA G Attending Unavailable SVENSSON, ANDREIA G Referring Unavailable CORTES, RAYSHAWN Primary Care Unavailable CORTES, RAYSHAWN Primary Care Unavailable SVENSSON, ANDREIA G Referring Unavailable CORTES, RAYSHAWN Primary Care Unavailable SVENSSON, ANDREIA G Referring Unavailable CORTES, RAYSHAWN Primary Care Unavailable Cortes, Dr. Tabares Primary Care Provider Miley Palacios Attending Provider Unavailable Dr. Blayne Hayes Attending Provider Cortes, Dr. Tabares Referring Provider Aura RN SANE, RN SANE-C Archie Harris Attending Provider Dr. Renuka Soliman Attending Provider [phone] Dr. Blayne Hayes Referring Provider [phone] Zeynep, Dr. Tabares Primary Care Provider [phone] Zeynep, Dr. Tabares Referring Provider Aura RN SANE, MOE Harris Attending Provider Dr. Blayne Hayes Attending Provider [phone] Cortes, Dr. Tabares Primary Care Provider Zeynep, Dr. Tabares Referring Provider [phone] Aura RN SANE, RAOUL-Duy Harris Attending Provider Gely RN SANE, RAOUL-C Tonya Attending Provider Zeynep, Dr. Tabares Primary Care Provider Zeynep, Dr. Tabares Referring Provider Gely SILVEIRA, RN SANE-C oTnya Attending Provider [phone] Roof RN SANE, RN SANE-C Archie Harris Attending Provider Dr. Rayshawn Cortes Primary Care Provider Zeynep, Dr. Tabares Referring Provider Hong RN SANE, RN SANE-C Tonya Attending Provider Roof RN SANE, RN SANE-C Archie Harris Attending Provider MOE Rider Attending Provider [phone] Con Baker Attending Provider Zeynep DC, Dr. Tabares Primary Care Provider Aura RN SANE-CArchie Attending Provider Aura RN SANE-CArchie Referring Provider Dr. Rayshawn Cortes MD Referring Provider Jin RN SANE-CLinh Attending Provider Samuel DC, Dr. Andujar Attending Provider Maico PARDO, Dr. Bridges Attending Provider Mariusz Daigle Attending Unavailable Cortes, Rayshawn Referring Unavailable Cortes, Rayshawn Primary Care Unavailable Con Baker Attending Unavailable Cortes, Rayshawn Primary Care Unavailable Deep Conti Attending Unavailable Cortes, Rayshawn Primary Care Unavailable Cortes, Rayshawn Referring Unavailable Cortes, Rayshawn Primary Care Unavailable Krissy Wynn Attending Unavailable Krissy Wynn Referring Unavailable Yuliana Nina Attending Unavailable Cortes, Rayshawn Primary Care Unavailable Cortes, Rayshawn Referring Unavailable Roof, Archie H Attending Unavailable Roof, Archie H Referring Unavailable Cortes, Rayshawn Primary Care Unavailable Linh Abdi Attending Unavailable Linh Abdi Referring Unavailable Cortes, Rayshawn Primary Care Unavailable Roof, Archie H Attending Unavailable Roof, Archie H Referring Unavailable Cortes, Rayshawn Primary Care Unavailable Cortes, Rayshawn Primary Care Unavailable Kennedy Lam Attending Unavailable Cortes, Rayshawn Referring Unavailable Cortes, Rayshawn Primary Care Unavailable Krissy Wynn Attending Unavailable Cortes, Rayshawn Referring Unavailable Linh Abdi Attending Unavailable Cortes, Rayshawn Referring Unavailable Cortes, Rayshawn Primary Care Unavailable Con Baker Attending Unavailable Cortes, Rayshawn Primary Care Unavailable Yuliana Nina Attending Unavailable Cortes, Rayshawn Primary Care Unavailable Cortes, Rayshawn Referring Unavailable Archie Chavarria H Attending Unavailable Cortes, Rayshawn Primary Care Unavailable Cortes, Rayshawn Referring Unavailable Cortes, Rayshawn Primary Care Unavailable Roverto Dale Attending Unavailable Cortes, Rayshawn Referring Unavailable Con Baker Attending Unavailable Cortes, Rayshawn Primary Care Unavailable Archie Chavarria H Attending Unavailable Archie Chavarria H Referring Unavailable Cortes, Rayshawn Primary Care Unavailable Cortes, Rayshawn Primary Care Unavailable Krissy Wynn Attending Unavailable Cortes, Rayshawn Referring Unavailable Linh Abdi Attending Unavailable Cortes, Rayshawn Referring Unavailable Cortes, Rayshawn Primary Care Unavailable Cortes , Dr. Tabares Primary Care Provider Allergies Allergy Classification Reported Allergen(s) Allergy Type Date of Onset Reaction(s) Facility (18 sources) formoterol Drug Allergy 2 Headache [facility] (18 sources) Mometasone Drug Allergy 2 Mouth Sores [facility] (6 sources) Metoprolol Drug Allergy 3 Fatigue and ED [facility] (1 source) formoterol Drug Allergy 5 [facility] (1 source) Metoprolol Drug Allergy 5 [facility] (1 source) Mometasone Drug Allergy 5 [facility] Medications Current Medications Medication Drug Class(es) Dates Sig (Normalized) Sig (Original) acetaminophen 500 mg oral tablet (17 sources) Start: 08-25-2022 take 2 tablets by mouth every six hours as needed for pain Acetaminophen 500 mg Tablet Active 1000 mg PO EVERY 6 HOURS as needed for Pain August 25, 2022 1:00am Start: 08-25-2022 take 1000 mg by mout h every six hours Acetaminophen Active 1000 MG PO EVERY 6 HOURS August 25, 2022 1:00am Comment on above: Take 2 tablets by mo uth every 6 hours as needed for pain. cetirizine hydrochloride 10 mg oral capsule (20 sources) Histamine-1 Receptor Antagonist Start: 3 End: 3 take 1 capsule by mouth once daily Cetirizine (Zyrtec) 10 mg capsule Active 10 mg PO DAILY July 20, 2023 4:50pm Start: 06-02-2021 End: 12-10-2021 take 1 tablet by mouth once daily Cetirizine (Zyrtec) 10 mg Tablet Discontinued 10 mg PO DAILY June 02, 2021 1:00am December 10, 2021 12:53pm ALLERGIES 24 hr dilTIAZem hydrochloride 120 mg extended release oral capsule (20 sources) Calcium Channel Eric Start: 06-23-2024 take 1 capsule by mouth once daily Diltiazem Hcl 120 mg capsule,extended release 24hr Active 120 mg PO daily 90 June 23, 2024 9:10am this is a dose increase Start: 12-23-2022 End: 06-23-2024 take 1 capsule by mouth twice daily Diltiazem Hcl 120 mg capsule,extended release 24hr Discontinued 120 mg PO TWICE A DAY 180 3 March 18, 2024 1:59pm June 23, 2024 9:10am this is a dose increase Start: 12-07-2022 End: 12-23-2022 take 1 capsule by mouth once daily Diltiazem Hcl 120 mg capsule,extended release 24hr Discontinued 120 mg PO DAILY 90 December 07, 2022 12:00am December 23, 2022 1:29pm Start: 12-10-2021 End: 01-28-2022 Diltiazem 2% Ointment (Cochrane und) ointment Discontinued 0 .ROUTE .MEDSUPPLY 1 0 December 10, 2021 12:00am January 28, 2022 10:46am As directed Start: 12-10-2021 End: 01-28-2022 Diltiazem 2% Ointment (Cochrane und) ointment Discontinued 0 .ROUTE .MEDSUPPLY December 10, 2021 12:00am January 28, 2022 10:46am As directed Start: 12-10-2021 End: 01-28-2022 Diltiazem 2% Ointment (Cochrane und) Discontinued 0 .ROUTE .MEDSUPPLY December 10, 2021 12:00am January 28, 2022 10:46am As directed Start: 12-10-2021 End: 01-28-2022 Diltiazem 2% Ointment (Cochrane und) Discontinued 0 .ROUTE .MEDSUPPLY December 09, 2021 11:00pm January 28, 2022 9:46am As directed Multivitamin tablet (3 sources) Start: 07-12-2024 Multivitamin t ablet Active 1 {tbl} PO daily July 12, 2024 1:00am perflutren lipid microsphere s 1.3 mL in NaCl (PF) 0.9% 10 mL injection (DEFINITY) (13 sources) Start: 08-30-2022 End: 11-29-2023 perflutren lipid microsphere s 1.3 mL in NaCl (PF) 0.9% 10 mL injection (DEFINITY) Start: 07-23-2022 End: 10-22-2023 perflutren lipid microsphere s 1.3 mL in NaCl (PF) 0.9% 10 mL injection (DEFINITY) 125 ml sodium chloride 9 mg/ml prefilled syringe (13 sources) Start: 07-23-2022 End: 11-29-2023 sodium chloride 0.9 % (flush) 10 mL (BD POSIFLUSH) warfarin sodium 5 mg oral tablet (20 sources) Vitamin K Antagonist Start: 07-12-2024 take 7.5 mg by mouth once daily Warfarin 5 mg tablet Active 7.5 mg PO DAILY July 12, 2024 9:10am Start: 01-26-2023 End: 07-12-2024 take 1 tablet by mouth once daily Warfarin 5 mg tablet Discontinued 5 mg PO DAILY January 26, 2023 12:00am July 12, 2024 9:11am Start: 09-01-2022 End: 09-02-2022 take 1 tablet by mouth once daily warfarin (COUMADIN) 7.5 mg tablet Take 1 tablet by mouth daily as directed. 30 tablet 1 09/02/2022 Active Start: 08-19-2022 End: 01-26-2023 take 5 mg by mouth once daily Warfarin 10 mg tablet Di scontinued 5 mg PO DAILY August 19, 2022 11:03am January 26, 2023 2:33pm Managed by PCP Start: 08-19-2022 End: 01-26-2023 take 5 mg by mouth once daily Warfarin Discontinued 5 MG PO DAILY August 19, 2022 11:03am January 26, 2023 2:33pm Managed by PCP Start: 08-01-2022 End: 08-19-2022 take 1 tablet by mouth once daily Warfarin 10 mg tablet Discontinued 10 mg PO DAILY August 01, 2022 1:00am August 19, 2022 11:04am Managed by PCP Start: 07-28-2022 End: 09-26-2022 take 2 tablets by mouth once daily warfarin (COUMADIN) 5 mg tablet Take 2 tablets by mouth once daily. 60 tablet 1 07/28/2022 09/26/2022 Suspended Comment on above: Take 2 tablets by mo [facility] once daily. Take 1 tablet by [place] th daily as directed. Completed/Discontinued Medications Medication Drug Class(es) Dates Sig (Normalized) Sig (Original) acetaminophen 325 mg / HYDROcodone bitartrate 5 mg oral tablet (18 sources) Opioid Agonist Start: 08-04-2018 End: 08-06-2018 Hydrocodone-Acetami nophen 1 TABLET tablet Discontinued 1 {tbl} PO EVERY 4 HOURS NEEDED as needed for Pain 10 2 0 August 04, 2018 1:00am August 05, 2018 1:00am August 06, 2018 1:09am Pain, unspecified Start: 08-04-2018 End: 08-06-2018 take 1 tablet by mouth every four hours as needed Hydrocodone-Acetaminophen Discontinued 1 TABLET PO EVERY 4 HOURS NEEDED 10 2 August 04, 2018 1:00am August 06, 2018 1:09am [id number] actuat albuterol 0.09 mg/actuat metered dose inhaler (18 sources) beta2-Adrenergic Agonist Start: 01-28-2022 End: 08-19-2022 Albuterol Sulfate 90 mcg/actuation HFA aerosol inhaler Discontinued 2 NMA INHALATION Q4H as needed for shortness of breath or wheezing 8.5 3 January 28, 2022 12:00am August 19, 2022 11:04am administer with spacer Start: 01-28-2022 End: 08-19-2022 take 1 puff(s) by inhalation every four hours Albuterol Sulfate Discontinued 2 PUFF INHALATION Q4H 8.5 January 28, 2022 12:00am August 19, 2022 11:04am administer with spacer Albuterol-Budesonide (Airsup ra) 90-80 mcg/actuation HFA aerosol inhaler (3 sources) Start: 08-09-2024 End: 10-18-2024 Albuterol-Budesonide (Airsup ra) 90-80 mcg/actuation HFA aerosol inhaler Discontinued 2 NMA INHALATION 4 times daily as needed for shortness of breath or wheezing 10.7 11 August 09, 2024 1:00am October 18, 2024 2:37pm Start: 08-09-2024 End: 10-18-2024 Albuterol-Budesonide (Airsup ra) 90-80 mcg/actuation HFA aerosol inhaler Discontinued 2 NMA INHALATION 4 times daily as needed for shortness of breath or wheezing 10.7 August 09, 2024 1:00am October 18, 2024 2:37pm amoxicillin 875 mg / clavulanate 125 mg oral tablet (20 sources) Penicillin-class Antibacterial Start: 07-11-2024 End: 07-21-2024 Amoxicillin-Pot Clavulanate 875-125 mg tablet Discontinued 1 {tbl} PO Q12H 20 10 July 11, 2024 1:00am July 20, 2024 1:00am July 21, 2024 1:09am Acute sinusitis, unspecified Start: 06-11-2024 End: 06-23-2024 Amoxicillin-Pot Clavulanate 875-125 mg tablet Discontinued 1 {tbl} PO TWICE A DAY 20 0 June 11, 2024 1:00am June 23, 2024 8:50am Start: 07-05-2022 End: 08-01-2022 Amoxicillin-Pot Clavulanate 875-125 mg tablet Discontinued 1 {tbl} PO Q12H 14 0 July 05, 2022 1:00am August 01, 2022 10:12am Start: 07-05-2022 End: 08-01-2022 take 1 tablet by mouth every twelve hours Amoxicillin-Pot Clavulanate Discontinued 1 TABLET PO Q12H July 05, 2022 1:00am August 01, 2022 10:12am aspirin 81 mg delayed release oral tablet (20 sources) Platelet Aggregation Inhibitor, Nonsteroidal Anti-inflammatory Drug Start: 06-10-2022 End: 09-20-2022 take 1 tablet by mouth once daily Aspirin 81 mg tablet,delayed release (DR/EC) Discontinued 81 mg PO DAILY 1 0 November 18th, 2022 1:00am September 20, 2022 10:14am Comment on above: Take 81 mg by mouth once daily. benzonatate 100 mg oral capsule (4 sources) Non-narcotic Antitussive Start: 09-16-2023 End: 10-20-2023 take 1 capsule by mouth twice daily as needed for cough Benzonatate 100 mg capsule Discontinued 100 mg PO TWICE A DAY as needed for cough 30 0 September 16, 2023 1:00am October 20, 2023 8:06am cholecalciferol 0.125 mg oral capsule (20 sources) Vitamin D Start: 12-10-2021 End: 08-19-2022 take 1 capsule by mouth once daily Cholecalciferol (Vitamin D3) 125 mcg (5,000 unit) capsule Discontinued 125 ug PO DAILY December 10, 2021 12:00am August 19, 2022 11:04am Comment on above: Take 125 mcg by mout h once daily. cyclobenzaprine hydrochloride 10 mg oral tablet (3 sources) Muscle Relaxant Start: 10-18-2024 End: 12-31-2024 take 0.5-1 tablets by mouth once daily as needed for muscle spasms Cyclobenzaprine 10 mg tablet Discontinued 10 mg PO BEDTIME as needed for muscle spasm 30 0 October 18, 2024 12:00am December 31, 2024 3:22pm Take 1/2 to 1 tablet nightly as needed for muscle tightness/spasm Avoid driving, safety sensitive work, operating equipment within 8 hours of dosing diazePAM 5 mg oral tablet (18 sources) Benzodiazepine Start: 06-02-2021 End: 12-10-2021 take 1 tablet by mouth once daily Diazepam 5 mg tablet Discontinued 5 mg PO DAILY June 02, 2021 1:00am December 10, 2021 12:53pm Diltiazem 2% / Lidocaine 5% Ointment (Compound) (15 sources) Start: 12-10-2021 End: 01-28-2022 Diltiazem 2% / Lidocaine 5% Ointment (Compound) Discontinued 0 .ROUTE .MEDSUPPLY December 10, 2021 12:00am January 28, 2022 10:46am As directed Start: 12-10-2021 End: 01-28-2022 Diltiazem 2% / Lidocaine 5% Ointment (Compound) Discontinued 0 .ROUTE .MEDSUPPLY December 09, 2021 11:00pm January 28, 2022 9:46am As directed Diltiazem 2% / Lidocaine 5% Ointment (Compound) ointment (3 sources) Start: 12-10-2021 End: 01-28-2022 Diltiazem 2% / Lidocaine 5% Ointment (Compound) ointment Discontinued 0 .ROUTE .MEDSUPPLY 1 December 10, 2021 12:00am January 28, 2022 10:46am As directed Start: 12-10-2021 End: 01-28-2022 Diltiazem 2% / Lidocaine 5% Ointment (Compound) ointment Discontinued 0 .ROUTE .MEDSUPPLY 1 December 10, 2021 12:00am January 28, 2022 10:46am As directed docusate sodium 100 mg oral capsule (4 sources) Start: 09-01-2022 take 1 capsule by mouth every twelve hours as needed docusate sodium (COLACE) 100 mg capsule Take 1 capsule by mouth twice daily as needed for constipation. 0 09/01/2022 Active Comment on above: Take 1 capsule by [facility] twice daily as needed for constipation. doxycycline monohydrate 100 mg oral capsule (3 sources) Tetracycline-clas s Drug Start: 06-11-2024 End: 06-23-2024 take 1 capsule by mouth twice daily Doxycycline Monohydrate 100 mg capsule Discontinued 100 mg PO TWICE A DAY June 11, 2024 1:00am June 23, 2024 8:50am fexofenadine hydrochloride 180 mg oral tablet (20 sources) Histamine-1 Receptor Antagonist Start: 12-10-2021 End: 08-19-2022 take 1 tablet by mouth once daily Fexofenadine (Dori Allergy) 180 mg tablet Discontinued 180 mg PO DAILY December 10, 2021 12:00am August 19, 2022 11:04am Comment on above: Take 180 mg by mouth once daily. 120 actuat formoterol fumarate 0.005 mg/actuat / mometasone furoate 0.2 mg/actuat metered dose inhaler (18 sources) Corticosteroid, beta2-Adrenergic Agonist Start: 06-25-2021 End: 10-07-2021 Mometasone-Formoter ol (Dulera) 200-5 mcg/actuation HFA aerosol inhaler Discontinued 2 NMA INHALATION TWICE A DAY 13 June 25, 2021 1:00am October 07, 2021 9:49am Start: 06-25-2021 End: 10-07-2021 take 1 puff(s) by inhalation twice daily Mometasone-Formoterol (Dulera) 200-5 mcg/actuation HFA aerosol inhaler Discontinued 2 PUFF INHALATION TWICE A DAY June 25, 2021 1:00am October 07, 2021 9:49am 24 hr isosorbide mononitrate 30 mg extended release oral tablet (20 sources) Nitrate Vasodilator Start: 06-27-2022 End: 08-01-2022 take 1 tablet by mouth once daily, then take 1 tablet by mouth every twenty-four hours Isosorbide Mononitrate 30 mg Tablet Extended Release 24 Hr Discontinued 30 mg PO DAILY June 27, 2022 1:00am August 01, 2022 10:12am Start: 06-10-2022 End: 06-22-2022 take 1 tablet by mouth once daily, then take 1 tablet by mouth every twenty-four hours Isosorbide Mononitrate 30 mg tablet extended release 24 hr Discontinued 30 mg PO DAILY 20 10June 10, 2022 1:16pm June 22, 2022 10:13am lisinopril 10 mg oral tablet (20 sources) Angiotensin Converting Enzyme Inhibitor Start: 08-19-2022 End: 09-20-2022 take 1 tablet by mouth once daily Lisinopril 10 mg tablet Discontinued 10 mg PO DAILY August 19, 2022 11:03am September 20, 2022 9:21am Start: 08-19-2022 take 5 mg by mouth twice daily Lisinopril Active 5 MG PO TWICE A DAY August 19, 2022 10:03am Start: 08-01-2022 End: 08-19-2022 take 5 mg by mouth once daily Lisinopril 10 mg tablet Discontinued 5 mg PO DAILY August 01, 2022 1:00am August 19, 2022 11:04am Start: 08-01-2022 End: 08-19-2022 take 5 mg by mouth once daily Lisinopril Discontinued 5 MG PO DAILY August 01, 2022 1:00am August 19, 2022 11:04am Start: 07-28-2022 End: 09-26-2022 take 3 tablets by mouth once daily lisinopril (ZESTRIL, PRINIVIL) 5 mg tablet Take 3 tablets by mouth once daily. 90 tablet 1 07/28/2022 09/26/2022 Suspended Start: 08-04-2018 End: 08-01-2022 take 1 tablet by mouth once daily Lisinopril 40 MG tablet Discontinued 40 mg PO DAILY August 04, 2018 1:00am August 01, 2022 10:11am Comment on above: [facility] Take [facility] tablets by mo [facility] once daily. losartan potassium 50 mg oral tablet (20 sources) Angiotensin 2 Receptor Eric Start: End: take 1 tablet by mouth twice daily Losartan 50 mg tablet Discontinued 50 mg PO TWICE A DAY 180 February 15, 2023 1:38pm March 18, 2024 2:01pm Start: 01-05-2023 End: 01-13-2023 take 1 tablet by mouth once daily Losartan 50 mg tablet Discontinued 50 mg PO DAILY 90 3 January 05, 2023 12:00am January 13, 2023 12:55pm Start: 09-20-2022 End: 01-05-2023 take 1 tablet by mouth once daily Losartan 25 mg tablet Discontinued 25 mg PO DAILY 30 October 12, 2022 11:35am January 05, 2023 4:09pm melatonin 3 mg oral tablet (4 sources) Start: 09-01-2022 take 3 tablets by mouth every twenty-four hours as needed melatonin 3 mg tablet Take 3 tablets by mouth at bedtime as needed for for insomnia. 0 09/01/2022 Active Comment on above: Take 3 tablets by mo [facility] at bedtime as needed for for insomnia. meloxicam 7.5 mg oral tablet (18 sources) Nonsteroidal Anti-inflammatory Drug Start: 06-03-2021 End: 12-10-2021 take 1 tablet by mouth once daily Meloxicam (Mobic) 7.5 mg tablet Discontinued 7.5 mg PO DAILY 14 June 03, 2021 1:00am December 10, 2021 12:53pm methylPREDNISolone 4 mg oral tablet (20 sources) Corticosteroid Start: 10-18-2024 End: 11-29-2024 take 1 tablet by mouth once Methylprednisolone (Medrol (Allen)) 4 mg tablets,dose pack Discontinued 0 PO per package directions 21 October 18, 2024 12:00am November 29, 2024 2:58pm PO PER PKG DIR for 6 days Start: 06-02-2021 End: 12-10-2021 Methylprednisolone 4 mg tabl ets,dose pack Discontinued 0 mg PO DAILY June 02, 2021 1:00am December 10, 2021 12:53pm Please contact the information source for Taper Schedule details. Start: 06-02-2021 End: 12-10-2021 Methylprednisolone Discontin ued 0 MG PO DAILY June 02, 2021 1:00am December 10, 2021 12:53pm Start: 06-02-2021 End: 12-10-2021 Methylprednisolone Discontin ued 0 MG PO DAILY June 02, 2021 12:00am December 10, 2021 11:53am 24 hr metoprolol succinate 25 mg extended release oral tablet (20 sources) beta-Adrenergic Eric Start: 12-23-2022 End: 01-05-2023 take 1 tablet by mouth twice daily Metoprolol Succinate 25 mg tablet extended release 24 hr Discontinued 25 mg PO TWICE A DAY 60 December 23, 2022 12:00am January 05, 2023 4:08pm Start: 12-07-2022 End: 12-23-2022 take 2 tablets by mouth twice daily Metoprolol Succinate 100 mg tablet extended release 24 hr Discontinued 50 mg PO TWICE A DAY 180 3 December 07, 2022 1:06pm December 23, 2022 1:27pm Start: 12-07-2022 End: 12-23-2022 take 50 mg by mouth twice daily Metoprolol Succinate Discontinued 50 MG PO TWICE A DAY 180 December 07, 2022 1:06pm December 23, 2022 1:27pm Start: 07-28-2022 End: 12-07-2022 take 1 tablet by mouth twice daily Metoprolol Succinate 100 mg tablet extended release 24 hr Discontinued 100 mg PO TWICE A DAY 180 November 29, 2022 5:04pm December 07, 2022 1:07pm Comment on above: Take 1 tablet by [place] twice daily. 30 actuat mometasone furoate 0.22 mg/actuat dry powder inhaler (20 sources) Corticosteroid Start: 10-07-2021 End: 12-10-2021 Mometasone 220 mcg/ actuation (30) aerosol powdr breath activated Discontinued 2 NMA INHALATION TWICE A DAY 1 3 October 07, 2021 12:00am December 10, 2021 12:53pm Start: 10-07-2021 End: 12-10-2021 Mometasone Discontinued 2 IN H INHALATION TWICE A DAY 1 October 07, 2021 12:00am December 10, 2021 12:53pm Start: 05-28-2021 End: 06-25-2021 Mometasone 220 mcg/ actuatio n (120) aerosol powdr breath activated Discontinued 2 NMA INHALATION TWICE A DAY 1 May 28, 2021 12:00am June 25, 2021 2:36pm Start: 05-28-2021 End: 06-25-2021 Mometasone Discontinued 2 IN H INHALATION TWICE A DAY 1 May 28, 2021 12:00am June 25, 2021 2:36pm montelukast 10 mg oral tablet (3 sources) Leukotriene Receptor Antagonist Start: 08-09-2024 End: 10-18-2024 take 1 tablet by mouth once daily Montelukast (Singulair) 10 mg tablet Discontinued 10 mg PO daily 30 5 August 09, 2024 1:00am October 18, 2024 2:38pm mupirocin 0.02 mg/mg topical ointment (4 sources) RNA Synthetase Inhibitor Antibacterial Start: 07-12-2022 End: 07-12-2022 mupirocin (BACTROBAN) 2 % ointment Apply a small amount in each nostril using a cotton swab twice the day before surgery and once the morning of surgery. 22 g 0 07/12/2022 Suspended Comment on above: Apply a small amount in each nostril using a cotton swab twice the day before surgery and once the morning of surgery. naproxen 500 mg oral tablet (18 sources) Nonsteroidal Anti-inflammatory Drug Start: 06-02-2021 End: 12-10-2021 take 1 tablet by mouth once daily Naproxen 500 mg tablet Discontinued 500 mg PO DAILY June 02, 2021 1:00am December 10, 2021 12:53pm oxyCODONE hydrochloride 5 mg oral tablet (18 sources) Opioid Agonist Start: 06-03-2021 End: 12-10-2021 take 1 tablet by mouth twice daily as needed for pain Oxycodone 5 mg tablet Discontinued 5 mg PO TWICE A DAY as needed for pain 6 3 0 June 03, 2021 December 10, 2021 12:53pm Spinal stenosis of lumbar region Spinal stenosis, lumbar region without neurogenic claudication Take twice daily as needed for pain >7/10. polyethylene glycol 3350 81910 mg powder for oral solution (4 sources) Osmotic Laxative Start: 09-01-2022 take 17 g by mouth every twelve hours as needed polyethylene glycol 3350 (MIRALAX, GLYCOLAX) 17 gram packet Take 1 Packet by mouth twice daily as needed for constipation. Dissolve dose in 4 - 8 ounces of liquid and take as directed. 0 09/01/2022 Active Comment on above: Take 1 Packet by galen th twice daily as needed for constipation. Dissolve dose in 4 - 8 ounces of liquid and take as directed. predniSONE 10 mg oral tablet (6 sources) Start: 07-12-2024 End: 08-09-2024 take 3 tablets by mouth once daily, then take 2 tablets by mouth once daily Prednisone 10 mg tablet Discontinued 10 mg PO As Directed 13 0 July 12, 2024 1:00am August 09, 2024 9:26am Take 3 tablets daily for 3 days, then 2 tablets daily for 2 days. Start: 06-23-2024 End: 06-28-2024 take 2 tablets by mouth once daily Prednisone 20 mg tablet Discontinued 40 mg PO daily 10 5 0 June 23, 2024 1:00am June 27, 2024 1:00am June 28, 2024 1:09am spacer (18 sources) Start: 06-25-2021 End: 12-10-2021 spacer Discontinued 0 .ROUTE .MEDSUPPLY June 25, 2021 1:00am December 10, 2021 12:53pm As directed Start: 06-25-2021 End: 12-10-2021 spacer Discontinued 0 .ROUTE .MEDSUPPLY June 25, 2021 1:00am December 10, 2021 12:53pm As directed Start: 06-25-2021 End: 12-10-2021 spacer Discontinued 0 .ROUTE .MEDSUPPLY June 25, 2021 12:00am December 10, 2021 11:53am As directed spironolactone 25 mg oral tablet (6 sources) Aldosterone Antagonist Start: 01-13-2023 End: 01-26-2023 Spironolactone 25 mg tablet Discontinued 12.5 mg PO DAILY 45 3 January 13, 2023 12:00am January 26, 2023 2:32pm Start: 01-13-2023 End: 01-26-2023 take 12.5 mg by mouth once daily Spironolactone Discontinued 12.5 MG PO DAILY 45 January 13, 2023 12:00am January 26, 2023 2:32pm tiZANidine 2 mg oral capsule (18 sources) Central alpha-2 Adrenergic Agonist Start: 06-03-2021 End: 12-10-2021 take 1 capsule by mouth every eight hours as needed Tizanidine (Zanaflex) 2 mg capsule Discontinued 2 mg PO Q8H as needed for muscle spasticity 42 0 June 03, 2021 1:00am December 10, 2021 12:54pm Problems Active Problems Problem Classification Problem Date Documented Da te Episodic/Chronic Administrative/social admission (20 sources) Discharge status; Translations: [Encounter for administrative examinations, unspecified] Onset: 2 07-12-2022 Episodic Anal and rectal conditions (18 sources) Anal fissure; Translations: [Anal fissure, unspecified] 06-08-2022 Episodic Aortic; peripheral; and visceral artery aneurysms (16 sources) Aortic root dilatation; Translations: [Thoracic aortic ectasia] 06-21-2022 Chronic Asthma (20 sources) Asthma; Translations: [Unspecified asthma, uncomplicated] Onset: 2 07-12-2022 Chronic Blindness and vision defects (8 sources) Sudden visual loss, bilateral; Translations: [Sudden visual loss] Onset: 3 07-27-2022 Episodic Cardiac and circulatory congenital anomalies (20 sources) Bicuspid aortic valve; Translations: [Congenital insufficiency of aortic valve] Onset: 2 07-12-2022 Chronic Cardiac dysrhythmias (20 sources) Tachycardia; Translations: [Tachycardia, unspecified] 05-26-2021 Episodic Chronic obstructive pulmonary disease and bronchiectasis (18 sources) Bronchitis; Translations: [Bronchitis, not specified as acute or chronic] 03-26-2021 Episodic Coronary atherosclerosis and other heart disease (20 sources) Preinfarction syndrome; Translations: [Unstable angina] Chronic Crushing injury or internal injury (20 sources) Unspecified injury of femoral artery, right leg, initial encounter; Translations: [Injury of right femoral artery] 06-30-2022 Episodic Essential hypertension (20 sources) Essential hypertension; Translations: [Essential (primary) hypertension] Onset: 2 Chronic Gastrointestinal hemorrhage (18 sources) Gastrointestinal hemorrhage; Translations: [Hemorrhage of anus and rectum] 06-08-2022 Episodic Headache; including migraine (8 sources) Cervicogenic headache; Translations: [Cervicogenic headache] Onset: 5 01-06-2025 Episodic Heart valve disorders (20 sources) Nonrheumatic aortic (valve) stenosis; Translations: [Severe aortic valve stenosis] Onset: 2 Chronic Comment on above: #23mm [facility] Valve @ [facility] 07/19/22 Heart valve disorders (20 sources) Heart murmur; Translations: [Cardiac murmur, unspecified] Episodic Immunizations and screening for infectious disease (4 sources) Contact with and (suspected) exposure to other viral communicable diseases; Translations: [Contact with or suspected exposure to other viral communicable disease] Onset: 4 07-11-2024 Episodic Influenza (5 sources) Influenza due to Influenza A virus; Translations: [Influenza due to other identified influenza virus with other respiratory manifestations] 09-16-2023 Episodic Nonspecific chest pain (20 sources) Chest pain; Translations: [Chest pain, unspecified] Onset: 5 06-10-2022 Episodic Osteoarthritis (3 sources) Osteoarthritis of left knee joint; Translations: [Unilateral primary osteoarthritis, left knee] 10-20-2023 Chronic Other aftercare (8 sources) Patient encounter status; Translations: [Encounter for therapeutic drug level monitoring] Onset: 3 07-27-2022 Episodic Other aftercare (1 source) Encounter for therapeutic drug level monitoring; Translations: [Anticoagulation management encounter] Onset: 3 Episodic Other aftercare (1 source) retirement (current) use of anticoagulants; Translations: [Anticoagulation management encounter] Onset: 3 Episodic Other bone disease and musculoskeletal deformities (20 sources) Segmental and somatic dysfunction; Translations: [Segmental and somatic dysfunction of cervical region] 01-06-2025 Episodic Other bone disease and musculoskeletal deformities (1 source) Segmental and somatic dysfunction of thoracic region; Translations: [Segmental and somatic dysfunction of thoracic region] Onset: 5 Episodic Other bone disease and musculoskeletal deformities (1 source) Segmental and somatic dysfunction of cervical region; Translations: [Segmental and somatic dysfunction of cervical region] Onset: 5 Episodic Other circulatory disease (4 sources) Disorder of artery; Translations: [Disorder of arteries and arterioles, unspecified] Chronic Other circulatory disease (1 source) Disorder of arteries and arterioles, unspecified; Translations: [Disorder of artery or arteriole (HCC)] Onset: 2 Chronic Other circulatory disease (15 sources) Arterial bruit; Translations: [Other specified symptoms and signs involving the circulatory and respiratory systems] 06-30-2022 Episodic Other connective tissue disease (3 sources) Prepatellar bursitis of left knee; Translations: [Prepatellar bursitis, left knee] 10-20-2023 Episodic Other infections; including parasitic (13 sources) Personal history of other infectious and parasitic diseases; Translations: [History of COVID-19] Onset: 2 07-12-2022 Episodic Other liver diseases (18 sources) Steatosis of liver; Translations: [Fatty (change of) liver, not elsewhere classified] 03-19-2021 Chronic Other lower respiratory disease (20 sources) Dyspnea; Translations: [Dyspnea, unspecified] Onset: 2 07-19-2022 Episodic Other lower respiratory disease (18 sources) Hypoxia; Translations: [Hypoxemia] 05-16-2021 Episodic Other lower respiratory disease (20 sources) Cough; Translations: [Cough] Episodic Other lower respiratory disease (13 sources) Dyspnea on exertion; Translations: [Other forms of dyspnea] 08-25-2022 Episodic Other lower respiratory disease (13 sources) Chest pain on breathing; Translations: [Chest pain on breathing] 08-24-2022 Episodic Other lower respiratory disease (1 source) Shortness of breath; Translations: [Shortness of breath] Onset: 2 Episodic Other nervous system disorders (18 sources) Carpal tunnel syndrome; Translations: [Carpal tunnel syndrome, unspecified upper limb] 03-19-2021 Chronic Other nervous system disorders (4 sources) Postoperative pain ; Translations: [Other acute postprocedural pain] Onset: 2 07-27-2022 Episodic Other nervous system disorders (1 source) Other acute postprocedural pain; Translations: [Post-op pain] Onset: 2 Episodic Other non-traumatic joint disorders (3 sources) Disorder of shoulder; Translations: [Other specified joint disorders, left shoulder] 03-22-2024 Episodic Other non-traumatic joint disorders (3 sources) Pain in left knee; Translations: [Left knee pain] 10-20-2023 Episodic Other non-traumatic joint disorders (4 sources) Pain in left shoulder; Translations: [Left shoulder pain] Onset: 4 03-22-2024 Episodic Other non-traumatic joint disorders (1 source) Pain in right shoulder; Translations: [Pain in right shoulder] Onset: 5 Episodic Other nutritional; endocrine; and metabolic disorders (18 sources) Obesity; Translations: [Obesity, unspecified] 12-10-2021 Chronic Other nutritional; endocrine; and metabolic disorders (13 sources) Morbid obesity; Translations: [Morbid (severe) obesity due to excess calories] Onset: 2 07-12-2022 Chronic Other nutritional; endocrine; and metabolic disorders (8 sources) Body mass index 40+ - severely obese; Translations: [Morbid (severe) obesity due to excess calories] Onset: 2 07-27-2022 Chronic Other nutritional; endocrine; and metabolic disorders (5 sources) Severe obesity; Translations: [Morbid (severe) obesity due to excess calories] Onset: 2 08-30-2022 Chronic Other nutritional; endocrine; and metabolic disorders (1 source) Morbid (severe) obesity due to excess calories; Translations: [Obesity, Class III, BMI 40-49.9 (morbid obesity) ([facility])] Onset: 3 Chronic Other nutritional; endocrine; and metabolic disorders (3 sources) Obesity, unspecified; Translations: [Obesity, unspecified] 02-10-2023 Chronic Other skin disorders (15 sources) Swelling at injection site; Translations: [Localized swelling, mass and lump, unspecified] 06-30-2022 Episodic Other upper respiratory disease (18 sources) Seasonal allergy; Translations: [Other seasonal allergic rhinitis] 05-28-2021 Chronic Other upper respiratory infections (20 sources) Acute sinusitis; Translations: [Acute sinusitis, unspecified] Onset: 4 Episodic Ros-; endo-; and myocarditis; cardiomyopathy (except that caused by tuberculosis or sexually transmitted disease) (20 sources) Acute pericardial effusion; Translations: [Acute pericarditis, unspecified] Onset: 3 08-25-2022 Episodic Comment on above: Drained 08/26/2022 at [facility]; Pneumonia (except that caused by tuberculosis or sexually transmitted disease) (18 sources) Pneumonia; Translations: [Pneumonia, unspecified organism] 06-08-2022 Episodic Residual codes; unclassified (18 sources) Obstructive sleep apnea syndrome; Translations: [Obstructive sleep apnea (adult) (pediatric)] 06-08-2022 Chronic Residual codes; unclassified (13 sources) Obstructive sleep apnea (adult) (pediatric); Translations: [Obstructive sleep apnea (adult)(pediatric)] Chronic Residual codes; unclassified (13 sources) History of aortic valve repair; Translations: [Other specified postprocedural states] 08-25-2022 Episodic Septicemia (except in labor) (18 sources) Sepsis; Translations: [Sepsis, unspecified organism] 05-26-2021 Episodic Spondylosis; intervertebral disc disorders; other back problems (20 sources) Sciatica; Translations: [Sciatica, unspecified side] Onset: 5 06-02-2021 Episodic Superficial injury; contusion (18 sources) Contusion of hand; Translations: [Contusion of left hand, initial encounter] 03-08-2019 Episodic Unclassified (1 source) Acute cough; Translations: [Acute cough] Onset: 5 Unclassified (1 source) Cough, unspecified; Translations: [Cough, unspecified] Onset: 4 Viral infection (20 sources) COVID-19; Translations: [Pneumonia due to COVID-19 virus] 05-13-2021 Episodic Past or Other Problems Problem Classification Problem Date Documented Da te Episodic/Chronic Other lower respiratory disease (15 sources) Dyspnea, unspecified; Translations: [Other respiratory abnormalities] Onset: 09-25-2024 Episodic Other lower respiratory disease (1 source) Other forms of dyspnea; Translations: [Other forms of dyspnea] Onset: 09-10-2024 Episodic Results Test Name Value Interpretation Reference Range Facility Orthopedic Visit Reporton Orthopedic Visit Report [facility] [place] [address] OFFICE VISIT Date of Service: 11/29/24 MR#: [id number] Acct: [id number] Name: LEWIS GEORGE Rep #: [id number] : 1975 Provider: MOE ralph Age/Sex: 48/M Location: [facility] Status: Signed Intake Vital Signs 10/18/24 14:34 Height 5 ft 9 in Intake Visit Reasons: RIGHT SHOULDER Allergies metoprolol Adverse Reaction (Intermediate, Verified 10/18/24 14:37) Fatigue and ED formoterol (From Dulera) Adverse Reaction (Unknown, Verified 10/18/24 14:37) Headache mometasone furoate (From Asmanex Twisthaler) Adverse Reaction (Unknown, Verified 10/18/24 14:37) Mouth Sores Medications ???Medication ???Instructions ???Recorded ???Confirmed ???Type acetaminophen 500 mg tablet 1,000 mg PO Q6H PRN Pain 08/25/22 11/29/24 History cetirizine 10 mg capsule (Zyrtec) 10 mg PO DAILY 07/20/23 11/29/24 History losartan 50 mg tablet 50 mg PO BID #180 tabs 03/18/24 Rx diltiazem HCl 120 mg 120 mg PO QDAY this is a dose 08/1611/29/24 Rx capsule,extended release 24 hr increase #90 caps multivitamin 1 tab PO QDAY 07/12/24 11/29/24 Hi story warfarin 5 mg tablet 7.5 mg PO DAILY 07/12/24 11/29/24 History cyclobenzaprine 10 mg tablet 10 mg PO HS PRN muscle spasm #30 0 10/18/24 11/29/24 Rx tabs PFSH Medical History Acute sinusitis Impingement of left shoulder Left shoulder pain Bursitis, prepatellar, left Osteoarthritis of left knee Left knee pain Bicuspid aortic valve SOB (shortness of breath) Aortic stenosis Aortic root dilatation Severe aortic valve stenosis Cardiac murmur COVID-19 Chest pain Essential hypertension Anal fissure BRBPR (bright red blood per rectum) Blood in stool Heart murmur Arthritis History of back problems Lumbar stenosis Migraines Sciatica Asthma Pneumonia due to COVID-19 virus Pneumonia Obesity Fatty liver Carpal tunnel syndrome Hypertension CARMEL (obstructive sleep apnea) Surgical History History of mechanical aortic valve replacement ( 07/19/22) S/p bilateral carpal tunnel release H/O rhinoplasty Family History Mother Hypertension Kidney disease Father Hypertension Kidney disease CAD (coronary artery disease) History of coronary artery bypass surgery Grandfather Diabetes Grandmother Diabetes Social History household members: spouse Smoking Status: Never smoker alcohol intake: never substance use type: does not use caffeine: No HPI RIGHT SHOULDER Details: This documentation accurately reflects the service provided and the decisions made by me, Linh Abdi RN SANE-C 11/29/24 0922. Part of today???s visit was documented by Mary HERNDON, acting as scribe. LEWIS GEORGE is a 48 year old M here today for right shoulder pain that has been going on for months. He states that his chiropractor and Dr. Lynn think the pain is coming from is shoulder and radiating into his neck. He denies any known injury. He denies any previous surgery. 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 He takes Tylenol for the pain. He would like to try a steroid injection in the shoulder to see if it takes away his pain. He states that the medrol dose allen that he was given did not help with his pain. He does get headaches from the pain that is radiating into his neck. He is holding off on getting the MRI because he would like to see if a shoulder injection helpes his pain and then he can know if his pain is coming from his neck or shoulder. Agree with above. Lewis is a pleasant 48-year-old gentleman seen here approximately 6 weeks ago for cervical base pain and trigger point to the right upper trap. Patient states increased shoulder pain [place]. Patient had prior attempted Medrol Dosepak, topical remedies and muscle relaxer with no improvement. He has seen pain management and consults and states both his chiropractor and Dr. Lynn referred him back here for evaluation of the shoulder as they believe that is the origin of symptoms. Patient did not pursue cervical MRI due to cost. Denies any radiation of symptoms into the arm, states no limited range of motion. ROS Const All systems reviewed are unremarkable except as noted in H and other (A O x 3, no apparent distress. No recent illness.) Card Denies chest pain, Denies dyspnea, Denies edema and Reports other (No palpitations) Resp Denies cough, Denies dyspnea and Reports other (No recent URI) GI Reports system reviewed and no additional compla (more content not included)... Normal [facility] Shoulder min 2 Viewson 11-29 Shoulder min 2 Views [facility] [address] [place], [place] [id number] Shoulder min 2 Views MR#: [id number] Acct: [id number] Name: LEWIS GEORGE Rep #: [id number] : 1975 M 48 From: Nav Whyte MD PCP: RAYSHAWN CORTES Status: DEP AMB Study: Shoulder min 2 Views Date of Exam: 11/29/24 Exam# [id number] Ordering Dr: Linh Abdi RN SANE-C EXAM: XR Right Shoulder Complete, 2 or More Views CLINICAL INDICATION: PAIN TECHNIQUE: Two or more views of the right shoulder. COMPARISON: No relevant prior studies available. FINDINGS: BONES/JOINTS: Mild degenerative change of the acromioclavicular and glenohumeral joints. No acute fracture. No dislocation. SOFT TISSUES: Unremarkable. RAD/Shoulder min 2 Views IMPRESSION: 1. Mild degenerative change of the acromioclavicular and glenohumeral joints. 2. Degenerative changes as above. Reading Location: [facility] CC: MOE Abdi; RAYSHAWN CORTES Credit Historian: Signed Normal [facility] CBC (INCLUDES DIFF/PLT)on ABSOLUTE BAND NEUTROPHILS Normal [facility] Comment on above: Performed By: #### 8 847, 5363, 6399, 52109, 899 #### [facility] of [address], [address] [place] [address] Dye Beck Reel Operator: Price Monaco MD ABSOLUTE BASOPHILS Normal [facility] Comment on above: Performed By: #### 8 847, 5363, 6399, 92536, 899 #### [facility] of [place] [address] Dye Beck Reel Operator: Price Monaco MD ABSOLUTE BLASTS Normal [facility] Comment on above: Performed By: #### 8 847, 5363, 6399, 61430, 899 #### [facility] of [address], [address] [place] [address] Dye Beck Reel Operator: Price Monaco MD ABSOLUTE EOSINOPHILS [facility] Comment on above: Performed By: #### 8 847, 5363, 6399, 02630, 899 #### [facility] of [place] [address] Dye Beck Reel Operator: Price Monaco MD ABSOLUTE LYMPHOCYTES [facility] Comment on above: Performed By: #### 8 847, 5363, 6399, 48498, 899 #### [facility] of [place] [address] Dye Beck Reel Operator: Price Monaco MD ABSOLUTE METAMYELOCYTES [facility] Comment on above: Performed By: #### 8 847, 5363, 6399, 50778, 899 #### [facility] of [address], [address] [place] [address] Dye Beck Reel Operator: Price Monaco MD ABSOLUTE MONOCYTES Normal [facility] Comment on above: Performed By: #### 8 847, 5363, 6399, 27261, 899 #### [facility] of [place] [address] Dye Beck Reel Operator: Price Monaco MD ABSOLUTE MYELOCYTES Normal [facility] Comment on above: Performed By: #### 8 847, 5363, 6399, 78767, 899 #### [facility] of [place] [address] Dye Beck Reel Operator: Price Monaco MD ABSOLUTE NEUTROPHILS [facility] Comment on above: Performed By: #### 8 847, 5363, 6399, 37918, 899 #### [facility] of [place] [address] Dye Beck Reel Operator: Price Monaco MD ABSOLUTE NUCLEATED RBC [facility] Comment on above: Performed By: #### 8 847, 5363, 6399, 53773, 899 #### [facility] of [place] [address] Dye Beck Reel Operator: Price Monaco MD ABSOLUTE PROMYELOCYTES [facility] Comment on above: Performed By: #### 8 847, 5363, 6399, 52582, 899 #### [facility] of [place] [address] Dye Beck Reel Operator: Price Monaco MD BAND NEUTROPHILS Normal [facility] Comment on above: Performed By: #### 8 847, 5363, 6399, 10953, 899 #### [facility] of [place] [address] Dye Beck Reel Operator: Price Monaco MD BASOPHILS Normal [facility] Comment on above: Performed By: #### 8 847, 5363, 6399, 61822, 899 #### [facility] of [place] [address] Dye Beck Reel Operator: Price Monaco MD BLASTS Normal [facility] Comment on above: Performed By: #### 8 847, 5363, 6399, 08525, 899 #### [facility] of [place] [address], [address] [place] [address] Dye Beck Reel Operator: Price Monaco MD COMMENT(S) Normal [facility] Comment on above: Performed By: #### 8 847, 5363, 6399, 99802, 899 #### [facility] of [facility] [address], [address] [place] [address] Dye Beck Reel Operator: Price Monaco MD [facility] Normal [facility] Comment on above: Performed By: #### 8 847, 5363, 6399, 26220, 899 #### [facility] of [place] [address], [address] [place] [address] Dye Beck Reel Operator: Price Monaco MD [facility] Normal [facility] Comment on above: Performed By: #### 8 847, 5363, 6399, 90678, 899 #### [facility] of [place] [address], [address] [place] [address] Dye Beck Reel Operator: Price Monaco MD [facility] Normal [facility] Comment on above: Performed By: #### 8 847, 5363, 6399, 78554, 899 #### [facility] of [place] [address], [address] [place] [address] Dye Beck Reel Operator: Price Monaco MD [facility] Normal [facility] Comment on above: Performed By: #### 8 847, 5363, 6399, 41756, 899 #### [facility] of [facility] [address], [address] [place] [address] Dye Beck Reel Operator: Price Monaco MD [facility] Normal [facility] Comment on above: Performed By: #### 8 847, 5363, 6399, 76865, 899 #### [facility] of [facility] [address], [address] [place] [address] Dye Beck Reel Operator: Price Monaco MD [facility] Normal [facility] Comment on above: Performed By: #### 8 847, 5363, 6399, 69658, 899 #### [facility] of [facility] [address], [address] [place] [address] Dye Beck Reel Operator: Price Monaco MD MCV Normal [facility] Comment on above: Performed By: #### 8 847, 5363, 6399, 62360, 899 #### [facility] of [facility] [address], [address] [place] [address] Dye Beck Reel Operator: Price Moncao MD METAMYELOCYTES Normal [facility] Comment on above: Performed By: #### 8 847, 5363, 6399, 74262, 899 #### [facility] of [place] [address], [address] [place] [address] Dye Beck Reel Operator: Price Monaco MD MONOCYTES Normal [facility] Comment on above: Performed By: #### 8 847, 5363, 6399, 60954, 899 #### [facility] of [place] [address], [address] [place] [address] Dye Beck Reel Operator: Price Monaco MD MPV Normal [facility] Comment on above: Performed By: #### 8 847, 5363, 6399, 34920, 899 #### [facility] of [facility] [address], [address] [place] [address] Dye Beck Reel Operator: Price Monaco MD MYELOCYTES Normal [facility] Comment on above: Performed By: #### 8 847, 5363, 6399, 04586, 899 #### [facility] of [place] [address], [address] [place] [address] Dye Beck Reel Operator: Price Monaco MD NEUTROPHILS Normal [facility] Comment on above: Performed By: #### 8 847, 5363, 6399, 24342, 899 #### [facility] [place] [address], [address] [place] [address] Dye Beck Reel Operator: Price Monaco MD NUCLEATED RBC Normal [facility] Comment on above: Performed By: #### 8 847, 5363, 6399, 18557, 899 #### [facility] [place] [address], [address] [place] [address] Dye Beck Reel Operator: Price Monaco MD PLATELET COUNT Normal [facility] Comment on above: Performed By: #### 8 847, 5363, 6399, 51844, 899 #### [facility] [place] [address] [employer] [employer] Reel Operator: Price Monaco MD PROMYELOCYTES Normal [facility] Comment on above: Performed By: #### 8 847, 5363, 6399, 75067, 899 #### [facility] [place] [address] D[employer] Reel Operator: Price Monaco MD RDW Normal [facility] Comment on above: Performed By: #### 8 847, 5363, 6399, 32675, 899 #### [facility] [place] [address] D[employer] Reel Operator: Price Monaco MD REACTIVE LYMPHOCYTES Normal [facility] Comment on above: Performed By: #### 8 847, 5363, 6399, 70073, 899 #### [facility] [place] [address] [place] [address] Dye Beck Reel Operator: Price Monaco MD RED BLOOD CELL COUNT Normal [facility] Comment on above: Performed By: #### 8 847, 5363, 6399, 73217, 899 #### [facility] [place] [address] [place] [address] Dye Beck Reel Operator: Price Monaco MD WHITE BLOOD CELL COUNT Normal [facility] Comment on above: Performed By: #### 8 847, 5363, 6399, 63987, 899 #### [facility] [place] [address] [place] [address] Dye Beck Reel Operator: Price Monaco MD COMPREHENSIVE METABOLIC PANE [facility] 10-26-2024 Albumin [Mass/Vol] 4.6 g/dL Normal 3.6-5.1 [facility] Comment on above: Order Comment: 0; 0; 0; 0; 0 Performed By: #### 8 847, 5363, 6399, 72976, 899 #### [facility] [place] [address] D[employer] Reel Operator: Price Monaco MD Albumin/Globulin [Mass ratio] 1.8 {ratio} Normal 1.0-2.5 [facility] Comment on above: Order Comment: 0; 0; 0; 0; 0 Performed By: #### 8 847, 5363, 6399, 98540, 899 #### [facility] [place] [address] Dye Beck Reel Operator: Price Monaco MD ALP [Catalytic activity/Vol] 50 U/L Normal 36-130 [facility] Comment on above: Order Comment: 0; 0; 0; 0; 0 Performed By: #### 8 847, 5363, 6399, 41860, 899 #### [facility] [place] [address] Dye Beck Reel Operator: Price Monaco MD ALT [Catalytic activity/Vol] 54 U/L High 9-46 [facility] Comment on above: Order Comment: 0; 0; 0; 0; 0 Performed By: #### 8 847, 5363, 6399, 01579, 899 #### [facility] [place] [address] Dye Beck Reel Operator: Price Monaco MD AST [Catalytic activity/Vol] 34 U/L Normal 10-40 [facility] Comment on above: Order Comment: 0; 0; 0; 0; 0 Performed By: #### 8 847, 5363, 6399, 71110, 899 #### [facility] [place] [address] Dye Beck Reel Operator: Price Monaco MD Bilirubin [Mass/Vol] 1.0 mg/dL Normal 0.2-1.2 [facility] Comment on above: Order Comment: 0; 0; 0; 0; 0 Performed By: #### 8 847, 5363, 6399, 13248, 899 #### [facility] [place] [address] Dye Beck Reel Operator: Price Monaco MD BUN/CREATININE RATIO SEE NOTE: Normal 6-22 [facility] Comment on above: Order Comment: 0; 0; 0; 0; 0 Result Comment: Not Reported: BUN and Creatinine are within reference range. Performed By: #### 8 847, 5363, 6399, 18860, 899 #### [facility] [place] [address] Dye Beck Reel Operator: Price Monaco MD Calcium [Mass/Vol] 9.2 mg/dL Normal 8.6-10.3 [facility] Comment on above: Order Comment: 0; 0; 0; 0; 0 Performed By: #### 8 847, 5363, 6399, 45252, 899 #### [facility] [place] [address] Dye Beck Reel Operator: Price Monaco MD Chloride [Moles/Vol] 103 mmol/L Normal 98-110 [facility] Comment on above: Order Comment: 0; 0; 0; 0; 0 Performed By: #### 8 847, 5363, 6399, 90558, 899 #### [facility] [place] [address] Dye Beck Reel Operator: Price Monaco MD CO2 [Moles/Vol] 32 mmol/L Normal 20-32 [facility] Comment on above: Order Comment: 0; 0; 0; 0; 0 Performed By: #### 8 847, 5363, 6399, 38959, 899 #### [facility] [place] [address] Dye Beck Reel Operator: Price Monaco MD Creatinine [Mass/Vol] 0.81 mg/dL Normal 0.60-1.[address] [facility] [address] [facility] Comment on above: Order Comment: 0; 0; 0; 0; 0 Performed By: #### 8 847, 5363, 6399, 35743, 899 #### [facility] [place] [address] Dye Beck Reel Operator: Price Monaco MD GFR/1.73 sq M.predicted among non-blacks MDRD (S/P/Bld) [Vol rate/Area] 108 mL/min/{1.73_m2} Normal > OR = 60 [facility] Comment on above: Order Comment: 0; 0; 0; 0; 0 Performed By: #### 8 847, 5363, 6399, 03492, 899 #### [facility] [place] [address] Dye Beck Reel Operator: Price Monaco MD Globulin (S) [Mass/Vol] 2.5 g/dL Normal 1.9-3.7 [facility] Comment on above: Order Comment: 0; 0; 0; 0; 0 Performed By: #### 8 847, 5363, 6399, 22981, 899 #### [facility] [place] [address] Dye Beck Reel Operator: Price Monaco MD Glucose [Mass/Vol] 79 mg/dL Normal 65-99 [facility] Comment on above: Order Comment: 0; 0; 0; 0; 0 Result Comment: Fasting reference interval Performed By: #### 8 847, 5363, 6399, 57238, 899 #### [facility] [place] [address] Dye Beck Reel Operator: Price Monaco MD Potassium [Moles/Vol] 4.5 mmol/L Normal 3.5-5.[address] [facility] Comment on above: Order Comment: 0; 0; 0; 0; 0 Performed By: #### 8 847, 5363, 6399, 37253, 899 #### [facility] [place] [address] Dye Beck Reel Operator: Price Monaco MD Protein [Mass/Vol] 7.1 g/dL Normal 6.1-8.1 [facility] Comment on above: Order Comment: 0; 0; 0; 0; 0 Performed By: #### 8 847, 5363, 6399, 16944, 899 #### [facility] [address] [place] [address] Dye Beck Reel Operator: Price Monaco MD Sodium [Moles/Vol] 143 mmol/L Normal 135-146 [facility] Comment on above: Order Comment: 0; 0; 0; 0; 0 Performed By: #### 8 847, 5363, 6399, 11064, 899 #### [facility] [place] [address] Dye Beck Reel Operator: Price Monaco MD Urea nitrogen [Mass/Vol] 19 mg/dL Normal 7-25 [facility] Comment on above: Order Comment: 0; 0; 0; 0; 0 Performed By: #### 8 847, 5363, 6399, 70967, 899 #### [facility] [place] [address] Dye Beck Reel Operator: Price Monaco MD PROTHROMBIN TIME-INRon 10-26 INR Coag (PPP) [Relative time] 3.2 {INR} High [facility] Comment on above: Result Comment: Refe rence Range 0.9-1.1 Moderate-intensity Warfarin Therapy 2.0-3.0 Higher-intensity Warfarin Therapy 3.0-4.0 Performed By: #### 8 847, 5363, 6399, 02952, 899 #### [facility] [place] [address] Dye Beck Reel Operator: Price Monaco MD PT Coag (PPP) [Time] 31.1 s High 9.0-11.5 [facility] Comment on above: Result Comment: For additional information, please refer to http://education.[employer]/faq/UIU837 (This link is being provided for informational/ educational purposes only.) Performed By: #### 8 847, 5363, 6399, 38582, 899 #### [facility] [place] [address] Dye Beck Reel Operator: Price Monaco MD PSA, TOTALon 10-26-2024 PSA, TOTAL Normal [facility] Comment on above: Performed By: #### 8 847, 5323, 6399, 26452, 899 #### [facility] [address], [address] [place] [address] Dye Beck Reel Operator: Price Monaco MD TSHon 10-26-2024 TSH Normal [facility] Comment on above: Performed By: #### 8 847, 5363, 6399, 32851, 899 #### [facility] [address], [address] [place] [address] Dye Beck Reel Operator: Price Monaco MD Cerv Spine 4 or 5 Viewson Cerv Spine 4 or 5 Views [facility] [address] [place] [address] [id number] Cerv Spine 4 or 5 Views MR#: [id number] Acct: [id number] Name: LEWIS GEORGE Rep #: [id number] : 1975 M 48 From: Leonard Burks MD PCP: RAYSHAWN CORTES Status: DEP AMB Study: Cerv Spine 4 or 5 Views Date of Exam: 10/18/24 Exam# [id number] Ordering Dr: Linh Abdi RN SANE-C PROCEDURE: CERV SPINE 4 OR 5 VIEWS 10/18/2024 REASON FOR EXAM: NEW PT EVAL CERVICAL PAIN, HEADACHES TECHNIQUE: 4 views of the cervical spine. AP, lateral and flexion, extension COMPARISON: None available FINDINGS: The cervical spine is visualized on the lateral view from the skull base to the bottom of C7. No fracture or malalignment. Disc spaces appear within limits. Straightening may represent positioning or spasm. No prevertebral soft tissue swelling. Range on the extension view appears limited. No instability identified. Multilevel anterior corner spurring noted. Status post median sternotomy with fracture of the uppermost wire. RAD/Cerv Spine 4 or 5 Views IMPRESSION: The cervical spine is visualized on the lateral view from the skull base to the bottom of C7. No fracture or malalignment. Disc spaces appear within limits. Straightening may represent positioning or spasm. No prevertebral soft tissue swelling. The range on the extension view appears limited. No instability identified. Reading Location: [facility] CC: MOE Abdi; RAYSHAWN CORTES Credit Historian: Signed Normal [facility] Orthopedic Visit Reporton Orthopedic Visit Report [facility] [address] [place] [address] [address] [place] [address] OFFICE VISIT Date of Service: 10/18/24 MR#: [id number] Acct: [id number] Name: LEWIS GEORGE Rep #: [id number] : 1975 Provider: MOE ralph Age/Sex: 48/M Location: [facility] Status: Signed Intake Vital Signs 08/09/24 05:49 10/18/24 14:34 Height 5 ft 9 in 5 ft 9 in Weight: 287 lb BMI 42.3 Intake Visit Reasons: CERVICAL SPINE Chief Complaint: Cervical Spine pain Accompanied by: Daughter Is patient in pain?: Yes Pain scale (1-10): 3 Allergies metoprolol Adverse Reaction (Intermediate, Verified 10/18/24 14:37) Fatigue and ED formoterol (From Dulera) Adverse Reaction (Unknown, Verified 10/18/24 14:37) Headache mometasone furoate (From Asmanex Twisthaler) Adverse Reaction (Unknown, Verified 10/18/24 14:37) Mouth Sores Medications ???Medication ???Instructions ???Recorded ???Confirmed ???Type acetaminophen 500 mg tablet 1,000 mg PO Q6H PRN Pain 08/25/22 10/18/24 History cetirizine 10 mg capsule (Zyrtec) 10 mg PO DAILY 07/20/23 10/18/24 History losartan 50 mg tablet 50 mg PO BID #180 tabs 03/18/24 Rx diltiazem HCl 120 mg 120 mg PO QDAY this is a dose 08/1610/18/24 Rx capsule,extended release 24 hr increase #90 caps multivitamin 1 tab PO QDAY 07/12/24 10/18/24 Hi story warfarin 5 mg tablet 7.5 mg PO DAILY 07/12/24 10/18/24 History cyclobenzaprine 10 mg tablet 10 mg PO HS PRN muscle spasm #30 0 10/18/24 10/18/24 Rx tabs methylprednisolone 4 mg tablets in See Rx Instructions PO PER PKG D IR 10/18/24 10/18/24 Rx a dose pack (Medrol (Allen)) #21 tabs Have you fallen in the past year?: No PFSH Medical History Acute sinusitis Impingement of left shoulder Left shoulder pain Bursitis, prepatellar, left Osteoarthritis of left knee Left knee pain Bicuspid aortic valve SOB (shortness of breath) Aortic stenosis Aortic root dilatation Severe aortic valve stenosis Cardiac murmur COVID-19 Chest pain Essential hypertension Anal fissure BRBPR (bright red blood per rectum) Blood in stool Heart murmur Arthritis History of back problems Lumbar stenosis Migraines Sciatica Asthma Pneumonia due to COVID-19 virus Pneumonia Obesity Fatty liver Carpal tunnel syndrome Hypertension CARMEL (obstructive sleep apnea) Surgical History History of mechanical aortic valve replacement ( 07/19/22) S/p bilateral carpal tunnel release H/O rhinoplasty Family History Mother Hypertension Kidney disease Father Hypertension Kidney disease CAD (coronary artery disease) History of coronary artery bypass surgery Grandfather Diabetes Grandmother Diabetes Social History household members: spouse Smoking Status: Never smoker alcohol intake: never substance use type: does not use caffeine: No HPI CERVICAL SPINE Details: This documentation accurately reflects the service provided and the decisions made by me, Linh Abdi RN SANE-C 10/18/24 6608. Part of today???s visit was documented by Jakob Maurice MA, acting as scribe. LEWIS GEORGE is a 48 year old M here today for cervical spine pain. Symptoms increasing over the last several months with no identified injury. 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 He is on his feet all the time. The pain is mainly in the back of the neck, he can feel like a nerve is coming behind the right side of the ear. Every they have a massage therapist come in and massage him for approximately the last 2 months. Patient could feel numbness and tingling in the right arm when he hits certain spots in the neck. Denies any neck surgeries, or pt. positive history of lumbar back pain after COVID and treatment with Dr. Damon did xrays and injections in the back in 2020. His balance is good, no lumbar issues. Agree with above, wording was updated to correlate with today's visit and assessment. Progressive symptoms over the last several months with increasing radicular symptoms into the right arm. Patient is also seeing chiropractor every 2 weeks and massage therapy weekly through his work. Symptoms do ease after massage therapy, however they come right back. Patient is getting frequent headaches upon awakening at 3-4 times a week and this has been increasing. He has not been worked up by PCP regarding these headaches, he correlates to muscle tension. Takes Tylenol on as needed basis and it does seem to help some with the pain, however it takes a long time for it (more content not included)... Normal [facility] Absolute lymphocyte countOrd ered By: Archie Chavarria on 09-13-2024 Lymphocytes Auto (Unsp spec) [#/Vol] 2.48 10*3/uL 0.83-4.51 [facility] Absolute neutrophil countOrd ered By: Archie Chavarria on 09-13-2024 Neutrophils (Bld) [#/Vol] 4.6 10*3/uL 2.0-7.7 [facility] Albumin to globulin ratioOrd ered By: Archie Chavarria on 09-13-2024 Albumin/Globulin [Mass ratio] 1.2 {ratio} 0.9-2.4 [facility] Automated lymphocyte count a s percentage of total leukocytesOrdered By: Archie Chavarria on 09-13-2024 Lymphocytes/100 WBC Auto (Unsp spec) 31.5 % 19-41 [facility] BNP (brain natriuretic pepti de measurement)Ordered By: Archie Chavarria on 09-13-2024 Natriuretic peptide B (Bld) [Mass/Vol] 18.7 pg/mL 0-100 [facility] BNP,B-Type NATRIURETIC PEPTI Elie 09-13-2024 Natriuretic peptide B (Bld) [Mass/Vol] 18.7 pg/mL Normal 0-100 [facility] Comment on above: Performed By: #### L 500.4050, L100.0100, L503.6620 #### [facility] [address] [place], [address] Basophil percentageOrdered B y: Archie Chavarria on 09-13-2024 Basophils/100 WBC (Bld) 0.6 % 0-1 [facility] Bilirubin, totalOrdered By: Archie Chavarria on 09-13-2024 Bilirubin [Mass/Vol] 0.70 mg/dL 0.20-1.00 [facility] Comment on above: For patients on eltr ombopag therapy, use of Dimension [place] TBIL is not recommended. Blood urea nitrogen (BUN)/cr eatinine ratioOrdered By: Archie Chavarria on 09-13-2024 Urea nitrogen/Creatinine [Mass ratio] 16.3 mg/mg 10-20 [facility] CBC W/Diff, Automatedon 08-25 Absolute Lymph 2.48 X10 3/uL Normal 0.83-4.51 [facility] Comment on above: Performed By: #### L 500.4050, L100.0100, L503.6620 #### [facility] [address] [place], [address] Absolute Neut 4.6 X10 3/uL Normal 2.0-7.7 [facility] Comment on above: Performed By: #### L 500.4050, L100.0100, L503.6620 #### [facility] [address] [place], [address] Basophils/100 WBC (Bld) 0.6 % Normal 0-1 [facility] Comment on above: Performed By: #### L 500.4050, L100.0100, L503.6620 #### [facility] [address] [place], [address] Eosinophils/100 WBC (Bld) 3.3 % Normal 0-5 [facility] Comment on above: Performed By: #### L 500.4050, L100.0100, L503.6620 #### [facility] [address] [place], [address] Erythrocyte distribution width (RBC) [Ratio] 12.4 % Normal 11.6-14.6 [facility] Comment on above: Performed By: #### L 500.4050, L100.0100, L503.6620 #### [facility] [address] [place], [address] Hematocrit (Bld) [Volume fraction] 43.2 % Normal 40-54 [facility] Comment on above: Performed By: #### L 500.4050, L100.0100, L503.6620 #### [facility] [address] [place], [address] Hemoglobin (Bld) [Mass/Vol] 14.6 g/dL Normal 13.0-16.5 [facility] Comment on above: Performed By: #### L 500.4050, L100.0100, L503.6620 #### [facility] [address] [place], [address] IG% 0.300 Normal 0.0-0.9 [facility] Comment on above: Result Comment: IG% - Immature Granulocytes (promyelocytes, myelocytes and metamyelocytes) > 1% indicates that a LEFT SHIFT is Present. Performed By: #### L 500.4050, L100.0100, L503.6620 #### [facility] [address] [place], [address] Lymphocytes/100 WBC (Bld) 31.5 % Normal 19-41 [facility] Comment on above: Performed By: #### L 500.4050, L100.0100, L503.6620 #### [facility] [address] [place], [address] MCH (RBC) [Entitic mass] 28.6 pg Normal 27.0-32.0 [facility] Comment on above: Performed By: #### L 500.4050, L100.0100, L503.6620 #### [facility] [address] [place], [address] MCHC (RBC) [Mass/Vol] 33.8 g/dL Normal 32-36 [facility] Comment on above: Performed By: #### L 500.4050, L100.0100, L503.6620 #### [facility] [address] [place], [address] MCV (RBC) [Entitic vol] 84.7 fL Normal 80-94 [facility] Comment on above: Performed By: #### L 500.4050, L100.0100, L503.6620 #### [facility] [address] [place], [address] Monocytes/100 WBC (Bld) 6.0 % Normal 0-10 [facility] Comment on above: Performed By: #### L 500.4050, L100.0100, L503.6620 #### [facility] [address] [place], [address] Neutrophils/100 WBC (Bld) 58.3 % Normal 47-70 [facility] Comment on above: Performed By: #### L 500.4050, L100.0100, L503.6620 #### [facility] [address] [place], [address] Nucleated RBC (Bld) [#/Vol] 0 10*3/uL Normal 0-5 [facility] Comment on above: Performed By: #### L 500.4050, L100.0100, L503.6620 #### [facility] [address] [place], [address] Platelet mean volume (Bld) [Entitic vol] 10.0 fL Normal 6.2-12.0 [facility] Comment on above: Performed By: #### L 500.4050, L100.0100, L503.6620 #### [facility] [address] [place], [address] Platelets (Bld) [#/Vol] 272 10*3/uL Normal 150-450 [facility] Comment on above: Performed By: #### L 500.4050, L100.0100, L503.6620 #### [facility] [address] [place], [address] RBC (Bld) [#/Vol] 5.10 10*6/uL Normal 4.6-6.2 [facility] Comment on above: Performed By: #### L 500.4050, L100.0100, L503.6620 #### [facility] [address] [place], [address] RDW SD 37.6 fl Normal 35.1-43.9 [facility] Comment on above: Performed By: #### L 500.4050, L100.0100, L503.6620 #### [facility] [address] [place], [address] WBC (Bld) [#/Vol] 7.9 10*3/uL Normal 4.4-11.0 [facility] Comment on above: Performed By: #### L 500.4050, L100.0100, L503.6620 #### [facility] [address] [place], [address] Carbon dioxide measurementOr dered By: Archie Chavarria on 09-13-2024 CO2 [Moles/Vol] 28.0 mmol/L 21.0-32.0 [facility] Chloride measurementOrdered By: Archie Chavarria on 09-13-2024 Chloride [Moles/Vol] 109 mmol/L High 98-107 [facility] Comprehensive Metabolic Prof ilon 09-13-2024 Albumin [Mass/Vol] 4.0 g/dL Normal 3.2-5.0 [facility] Comment on above: Performed By: #### L 500.4050, L100.0100, L503.6620 #### [facility] [address] [place], [address] Albumin/Globulin [Mass ratio] 1.2 {ratio} Normal 0.9-2.4 [facility] Comment on above: Performed By: #### L 500.4050, L100.0100, L503.6620 #### [facility] [address] [place] [place], [address] ALK P 68 U/L Normal 45-117 [facility] Comment on above: Performed By: #### L 500.4050, L100.0100, L503.6620 #### [facility] [address] [place], [address] ALT [Catalytic activity/Vol] 96 U/L High 16-61 [facility] Comment on above: Performed By: #### L 500.4050, L100.0100, L503.6620 #### [facility] [address] [place], [address] AST [Catalytic activity/Vol] 61 U/L High 15-37 [facility] Comment on above: Result Comment: Slig ht Hemolysis, Result may be falsely increased. Performed By: #### L 500.4050, L100.0100, L503.6620 #### [facility] [address] [place], [address] Bilirubin [Mass/Vol] 0.70 mg/dL Normal 0.20-1.00 [facility] Comment on above: Result Comment: For patients on eltrombopag therapy, use of Dimension [place] TBIL is not recommended. Performed By: #### L 500.4050, L100.0100, L503.6620 #### [facility] [address] [place] [place], [address] BUN/CRE 16.3 RATIO Normal 10-20 [facility] Comment on above: Performed By: #### L 500.4050, L100.0100, L503.6620 #### [facility] [address] [place], [address] CA,Total 8.9 mg/dL Normal 8.5-10.1 [facility] Comment on above: Performed By: #### L 500.4050, L100.0100, L503.6620 #### [facility] [address] [place] [place], [address] Chloride [Moles/Vol] 109 mmol/L High 98-107 [facility] Comment on above: Performed By: #### L 500.4050, L100.0100, L503.6620 #### [facility] [address] [place], [address] CO2 [Moles/Vol] 28.0 mmol/L Normal 21.0-32.0 [facility] Comment on above: Performed By: #### L 500.4050, L100.0100, L503.6620 #### [facility] [address] [place], [address] Creatinine [Mass/Vol] 0.86 mg/dL Normal 0.70-1.30 [facility] Comment on above: Result Comment: The validity of the calculated GFR GFRAA in patients over 70 years has not been determined. Clinical correlation is essential. Performed By: #### L 500.4050, L100.0100, L503.6620 #### [facility] [address] [place], [address] EST GFR - AA 122 mL/min Normal >60 [facility] Comment on above: Result Comment: Afri can Estonian GFR Calc Performed By: #### L 500.4050, L100.0100, L503.6620 #### [facility] [address] [place], [address] GAP 4 Low 5-15 [facility] Comment on above: Performed By: #### L 500.4050, L100.0100, L503.6620 #### [facility] [address] [place], [address] GFR/1.73 sq M.predicted among non-blacks MDRD (S/P/Bld) [Vol rate/Area] 101 mL/min/{1.73_m2} Normal >60 [facility] Comment on above: Result Comment: Non- GFR Calc Performed By: #### L 500.4050, L100.0100, L503.6620 #### [facility] [address] [place], [address] Globulin (S) [Mass/Vol] 3.2 g/dL Normal 2.2-4.2 [facility] Comment on above: Performed By: #### L 500.4050, L100.0100, L503.6620 #### [facility] [address] [place] [place], [address] Glucose [Mass/Vol] 98 mg/dL Normal 74-106 [facility] Comment on above: Performed By: #### L 500.4050, L100.0100, L503.6620 #### [facility] [address] [place], [address] Potassium [Moles/Vol] 4.1 mmol/L Normal 3.5-5.1 [facility] Comment on above: Result Comment: Slig ht Hemolysis, Result may be falsely increased. Performed By: #### L 500.4050, L100.0100, L503.6620 #### [facility] [address] [place] [place], [address] Sodium [Moles/Vol] 142 mmol/L Normal 136-145 [facility] Comment on above: Performed By: #### L 500.4050, L100.0100, L503.6620 #### [facility] [address] [place], [address] T PROT 7.2 g/dL Normal 6.4-8.2 [facility] Comment on above: Performed By: #### L 500.4050, L100.0100, L503.6620 #### [facility] [address] [place], [address] Urea nitrogen [Mass/Vol] 14 mg/dL Normal 7-18 [facility] Comment on above: Performed By: #### L 500.4050, L100.0100, L503.6620 #### [facility] [address] [place], [address] Eosinophil percentageOrdered By: Archie Chavarria on 09-13-2024 Eosinophils/100 WBC (Bld) 3.3 % 0-5 [facility] Erythrocyte distribution wid th ratioOrdered By: Archie Chavarria on 09-13-2024 Erythrocyte distribution width (RBC) [Ratio] 12.4 % 11.6-14.6 [facility] Erythrocyte distribution wid th standard deviationOrdered By: Archie Chavarria on 09-13-2024 Erythrocyte distribution width (RBC) [Ratio] 37.6 fl 35.1-43.9 [facility] Glomerular filtration rate ( GFR) estimationOrdered By: Archie Chavarria on 09-13-2024 GFR/1.73 sq M.predicted among non-blacks MDRD (S/P/Bld) [Vol rate/Area] 101 mL/min/{1.73_m2} >60 [facility] Comment on above: Non- GFR Calc Glucose measurementOrdered B y: Archie Chavarria on 09-13-2024 Glucose [Mass/Vol] 98 mg/dL 74-106 [facility] Hematocrit Auto (Bld) [Volum e fraction]Ordered By: Archie Chavarria on 09-13-2024 Hematocrit (Bld) [Volume fraction] 43.2 % 40-54 [facility] Hemoglobin measurementOrdere d By: Archie Chavarria on 09-13-2024 Hemoglobin (Bld) [Mass/Vol] 14.6 g/dL 13.0-16.5 [facility] Immature granulocytes/100 WB C Auto (Bld)Ordered By: Archie Chavarria on 09-13-2024 Immature granulocytes/100 WBC (Bld) 0.300 % 0.0-0.9 [facility] Comment on above: IG% - Immature Granu locytes (promyelocytes, myelocytes and metamyelocytes) > 1% indicates that a LEFT SHIFT is Present. Laboratory - Chemistry and C hemistry - challengeOrdered By: Archie Chavarria on 09-13-2024 AST [Catalytic activity/Vol] 61 U/L High 15-37 [facility] Comment on above: Slight Hemolysis, Re sult may be falsely increased. MCV (mean corpuscular volume ) determinationOrdered By: Archie Chavarria on 09-13-2024 MCV (RBC) [Entitic vol] 84.7 fL 80-94 [facility] Mean corpuscular hemoglobin (MCH) determinationOrdered By: Archie Chavarria on 09-13-2024 MCH (RBC) [Entitic mass] 28.6 pg 27.0-32.0 [facility] Mean corpuscular hemoglobin concentration (MCHC) determinationOrdered By: Archie Chavarria on 09-13-2024 MCHC (RBC) [Mass/Vol] 33.8 g/dL 32-36 [facility] Mean platelet volume determi nationOrdered By: Archie Chavarria on 09-13-2024 Platelet mean volume (Bld) [Entitic vol] 10.0 fL 6.2-12.0 [facility] Monocyte percentageOrdered B y: Archie Chavarria on 09-13-2024 Monocytes/100 WBC (Bld) 6.0 % 0-10 [facility] Neutrophil percentageOrdered By: Archie Chavarria on 09-13-2024 Neutrophils/100 WBC (Bld) 58.3 % 47-70 [facility] Nucleated red blood cell per centageOrdered By: Archie Chavarria on 09-13-2024 Nucleated RBC/100 WBC (Bld) [Ratio] 0 % 0-5 [facility] Platelet countOrdered By: Maddi Chavarria on 09-13-2024 Platelets (Bld) [#/Vol] 272 10*3/uL 150-450 [facility] Potassium measurementOrdered By: Archie Chavarria on 09-13-2024 Potassium [Moles/Vol] 4.1 mmol/L 3.5-5.1 [facility] Comment on above: Slight Hemolysis, Re sult may be falsely increased. RBC Auto (Bld) [#/Vol]Ordere d By: Archie Chavarria on 09-13-2024 RBC (Bld) [#/Vol] 5.10 10*6/uL 4.6-6.2 [facility] Serum anion gap measurementO rdered By: Archie Chavarria on 09-13-2024 Anion gap [Moles/Vol] 4 mmol/L Low 5-15 [facility] Serum globulin measurementOr dered By: Archie Chavarria on 09-13-2024 Globulin (S) [Mass/Vol] 3.2 g/dL 2.2-4.2 [facility] Serum or plasma alanine lorenz otransferase (ALT) measurementOrdered By: Archie Chavarria on 09-13-2024 ALT [Catalytic activity/Vol] 96 U/L High 16-61 [facility] Serum or plasma albumin sampson urement (mass/volume)Ordered By: Archie Chavarria on 09-13-2024 Albumin [Mass/Vol] 4.0 g/dL 3.2-5.0 [facility] Serum or plasma alkaline karen sphatase measurementOrdered By: Archie Chavarria on 09-13-2024 ALP [Catalytic activity/Vol] 68 U/L 45-117 [facility] Serum or plasma calcium sampson urement (mass/volume)Ordered By: Archie Chavarria on 09-13-2024 Calcium [Mass/Vol] 8.9 mg/dL 8.5-10.1 [facility] Serum or plasma creatinine m easurement (mass/volume)Ordered By: Archie Chavarria on 09-13-2024 Creatinine [Mass/Vol] 0.86 mg/dL 0.70-1.30 [facility] Comment on above: The validity of the calculated GFR & GFRAA in patients over 70 years has not been determined. Clinical correlation is essential. Serum or plasma urea nitroge n measurement (mass/volume)Ordered By: Archie Chavarria on 09-13-2024 Urea nitrogen [Mass/Vol] 14 mg/dL 7-18 [facility] Sodium levelOrdered By: Archie Chavarria on 09-13-2024 Sodium [Moles/Vol] 142 mmol/L 136-145 [facility] Total proteinOrdered By: Kaiden copeland Aura on 09-13-2024 Protein [Mass/Vol] 7.2 g/dL 6.4-8.2 [facility] White blood cell (WBC) count Ordered By: Archie Aura on 09-13-2024 WBC (Bld) [#/Vol] 7.9 10*3/uL 4.4-11.0 [facility] Pulmonary Visit Reporton Pulmonary Visit Report [facility] [place] [address] [place] [address] OFFICE VISIT Date of Service: 08/09/24 MR#: [id number] Acct: [id number] Name: LEWIS GEORGE Rep #: [id number] : 1975 Provider: Krissy Wynn NP Age/Sex: 48/M Location: [facility] Status: Signed Assessment and Plan Assessment and Plan (1) Coughing: Status: Acute Qualifiers: Cough type: acute Qualified Code(s): R05.1 - Acute cough Plan: While I do not see evidence of asthma on the PFT there is coughing with forced expiration on today's exam. This is suggestive for bronchospasm and with previous flare in respiratory symptoms with exposure to chlorine, I have recommended Airsupra to be used as needed. The use and possible side effects of this inhaler were reviewed with patient today. I have also recommended aggressive treatment of allergy symptoms and have added Singulair to his regimen. He is to continue with use of Zyrtec. 8-week follow-up to review this regimen. I do believe that the mild restriction on the PFT is due to previous sternotomy and obesity. (2) CARMEL (obstructive sleep apnea): Status: Chronic Plan: Sleep apnea is well-controlled with PAP therapy. The patient reports some residual daytime tiredness but I believe this is due to his work schedule. He is encouraged to increase sleep time. Continue with his current regimen. At this point I do not see a need to proceed with titration. (3) Obesity: Status: Chronic Qualifiers: Body mass index: BMI 40.0-44.9 Obesity classification: adult class 3 (BMI >= 40) Obesity type: due to excess calories Serious obesity comorbidity presence: with serious comorbidity Qualified Code(s): E66.01 - Morbid (severe) obesity due to excess calories; Z68.41 - Body mass index [BMI] 40.0-44.9, adult Plan: This could be contributing to mild restriction seen on PFT. Complicates exam, care, plan, prognosis. Prudent diet by decreasing daily calorie intake is warranted for weight loss now. Orders: Orders NIOX Today R05.1 - Acute cough Medications: New montelukast (Singulair) 10 mg PO QDAY 30 tabs 5RF albuterol-budesonide 90-80 mcg/actuation (Airsupra) 2 inhalations inhalation 4XD PRN 10.7 grams 11RF shortness of breath or wheezing Plan Details Follow Up: 8 Weeks (LMR) HPI HPI Comments Details: This 48-year-old male patient presents to the office today for follow-up recent testing. He has a history of obstructive sleep apnea. He is on room air and ambulatory. If you recall the patient does have a history of pneumonia and required both antibiotics and prednisone. He utilize antibiotic therapy first but then required prednisone to control his cough. He does have a history of sinus infection and was prescribed Augmentin. He continues with a productive cough with yellow to green sputum and some chest congestion that is prominent in the morning. It feels as though he is not able to expectorate his sputum. He reports nasal congestion is also present. He does experience throat clearing. He indicates that his chest is sore from coughing at his incision site. He does have occasional shortness of breath on exertion. He denies wheeze. He denies fever, fatigue, body aches. He did have a pa and lat chest xray from July 16, 2024 which showed no change in LLL scarring and status post median sternotomy and heart valve replacement. The patient is using CPAP without significant air leak, snore. There are no concerns about the air pressure. The patient is reporting good compliance overall with the exception of when he is ill. Daytime hypersomnia does occur at times still. Nocturia occurs x 1. Denies morning headache. Dry mouth will occur on occasion. He reports that reflux occurs every couple of weeks. He does not know of a specific food trigger. In the past lisinopril was discontinued and he reports that it improved 80% of his cough. In the past he has experienced a breathing attack at the [employer]. He reports that the chlorine caused him to have shortness of breath and cough. He is a lifetime non-smoker. The patient indicates that prior to PAP therapy he had frequent bronchitis episodes. 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 He has not been successful at weight loss in the past. He has not been able to be as physically active as he would like due to the amount of hours he is working. He awakens at 3:50 AM and does not get home until 4 PM. He reports that he will nap for 10 minutes at that time without use of the device. Documentation reviewed today includes: PFT from August 06, 2024 shows mild restriction with preserved diffusion capacity. Intake Vital Signs 07/12/24 08:05 08/08/24 14:29 08/09/24 05:49 Height 5 ft 9 in 5 ft 9 in 5 ft 9 in Weight: 293 lb BMI 43.2 BP 136 (more content not included)... Normal [facility] Chest PA and Lateralon 07-16 Chest PA and Lateral [facility] [address] [place] [address] Chest PA and Lateral MR#: [id number] Acct: [id number] Name: LEWIS GEORGE Rep #: [id number] : 1975 M 48 From: Pete Giron MD PCP: RAYSHAWN CORTES Status: REG CLI Study: Chest PA and Lateral Date of Exam: 07/16/24 Exam# [id number] Ordering Dr: Archie Chavarria RN SANE RN SANE-C [id number] STUDY: X-RAY CHEST REASON FOR EXAM: Male, 48 years old. Continued URI symptoms from [facility] visit on TECHNIQUE: PA and lateral views of the chest. COMPARISON: 09/20/2022 FINDINGS: Status post median sternotomy and heart valve replacement. No change in left lower lobe scarring. There is no demonstrated pleural abnormality. Normal size heart. Normal mediastinum and jamie. Normal visualized pulmonary arteries. Normal visualized aortic arch and descending thoracic aorta. Normal visualized thoracic spine. Normal visualized ribs, clavicles, and shoulders. There is no demonstrated abnormality of the visualized soft tissue structures of the upper abdomen. RAD/Chest PA and Lateral IMPRESSION: No change from 09/20/2022. Electronically Signed: Pete Giron MD at 13:18 EST , CC: MOE Chavarria; RAYSHAWN CORTES Credit Historian: Signed Normal [facility] Pulmonary Visit Reporton Pulmonary Visit Report [facility] [address] [place] [address] OFFICE VISIT Date of Service: 07/12/24 MR#: [id number] Acct: [id number] Name: LEWIS GEORGE Rep #: [id number] : 1975 Provider: Krissy Wynn NP Age/Sex: 48/M Location: [facility] Status: Signed Assessment and Plan Assessment and Plan (1) CARMEL (obstructive sleep apnea): Status: Chronic Plan: Sleep apnea is well-controlled with PAP therapy. The patient reports some residual daytime tiredness but I believe this is due to his work schedule. I have discussed the importance of increasing sleep time and have recommended a way to obtain this. Care of the machine and equipment were reviewed with patient today as well. He is encouraged to continue with his current regimen. At this point I do not see a need to proceed with titration. I recommend a 12-month follow-up to review compliance download. (2) Obesity: Status: Chronic Qualifiers: Obesity type: due to excess calories Obesity classification: adult class 3 (BMI >= 40) Serious obesity comorbidity presence: with serious comorbidity Body mass index: BMI 40.0-44.9 Qualified Code(s): E66.01 - Morbid (severe) obesity due to excess calories; Z68.41 - Body mass index [BMI] 40.0-44.9, adult Plan: Complicates exam, care, plan, prognosis. Weight loss is warranted through prudent dieting and daily exercise. (3) Coughing: Status: Acute Qualifiers: Cough type: acute Qualified Code(s): R05.1 - Acute cough Plan: Cough with acute sinusitis and history of bronchitis. Short burst of prednisone to control coughing episodes and to allow him to return to using PAP therapy. I have recommended that he utilize protection when he is welding. He is to notify this practice if his symptoms do not return to baseline in the next few weeks. At that point I would recommend a PFT. Medications: New prednisone Take 3 tablets daily for 3 days, then 2 tablets daily for 2 days. 10 mg PO DIRECTED 13 tabs 0RF Plan Details Follow Up: 1 Year (LMR) HPI HPI Comments Details: This 48-year-old male patient presents to the office today for follow-up of his obstructive sleep apnea. He is on room air and ambulatory. The patient reports that he did have pneumonia a month ago. He required both antibiotics and prednisone. He utilize antibiotic therapy first but then required prednisone to control his cough. More recently [facility] for a [facility] infection and was prescribed Augmentin. He continues with a productive cough with yellow to green sputum and some chest congestion. He reports nasal congestion is also present. He indicates that his chest is sore from coughing. He denies wheeze. He denies fever, fatigue, body aches. The patient is using CPAP without significant air leak, oral dryness, snore. There are no concerns about the air pressure. The patient is reporting good compliance overall with the exception of when he is ill. He had difficulty using the device when he had pneumonia which is why there was not 100% compliance seen on the report for the last 30 days. He is now also having difficulty with his current illness. Daytime hypersomnia does occur at times still. Nocturia occurs x 1. Denies morning headache. He is a lifetime non-smoker. The patient indicates that prior to PAP therapy he had frequent bronchitis episodes. 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 Compliance report for the past 30 days from July 09, 2024 shows AHI 0.2, no air leak is identified. He is 70% compliant with therapy, using the device on average 7 hours nightly. This report is reviewed with patient today. Intake Vital Signs 01/04/24 14:54 06/11/24 16:18 06/22/24 11:40 07/12/24 08:05 Height 5 ft 9 in 5 ft 9 in 5 ft 9 in 5 ft 9 in Weight: 286 lb BMI 42.2 BP 144/84 H Blood Pressure Location Lt brachial Position Sitting Respiration 18 Pulse 91 Pulse Source Monitor Temp 98.1 F Temperature Source Temporal Artery Pulse Oximetry (%) 96 Oxygen Delivery Method room air Intake Visit Reasons: 1 Y FU Chief Complaint: cough, congest, العراق[place] DME Vendor: [employer] Allergies metoprolol Adverse Reaction (Intermediate, Verified 07/12/24 08:09) Fatigue and ED formoterol (From Dulera) Adverse Reaction (Unknown, Verified 07/12/24 08:09) Headache mometasone furoate (From Asmanex Twisthaler) Adverse Reaction (Unknown, Verified 07/12/24 08:09) Mouth Sores Medications ???Medication ???Instructions ???Recorded ???Confirmed ???Type acetaminophen 500 mg tablet 1,000 mg PO Q6H PRN Pain 08/25/22 07/12/24 History cetirizine 10 mg capsule (Zyrtec) 10 mg PO DAILY 07/20/23 07/12/24 History losartan 50 mg tablet 50 mg PO BID #180 tabs 03/18/24 07/12/24 Rx diltiazem HCl 120 m (more content not included)... Normal [facility] Urgent Care Visit Reporton 1 09-11-2023 Urgent Care Visit Report [facility] [address], [address] [place] [address] OFFICE VISIT Date of Service: 07/11/24 MR#: [id number] Acct: [id number] Name: LEWIS GEORGE Rep #: [id number] : 1975 Provider: BELLE Maciel Age/Sex: 48/M Location: [facility] Status: Signed Intake Vital Signs 06/22/24 11:40 12/19/24 07:48 Height 5 ft 9 in BP 122/60 H 142/72 H Blood Pressure Location Lt brachial Lt brachial Position Sitting Sitting Respiration 16 17 Pulse 94 102 H Pulse Source NIBP NIBP Temp 98.2 F 98.4 F Temp Source Oral Oral Pulse Oximetry (%) 95 96 Oxygen Delivery Method room air room air Intake Visit Reasons: CONCERN FOR SINUS INFECTION Chief Complaint: cough, congest, [place]عر[place]قي [employer] Required: No Is patient in pain?: No Allergies metoprolol Adverse Reaction (Intermediate, Verified 07/11/24 07:50) Fatigue and ED formoterol (From Dulera) Adverse Reaction (Unknown, Verified 07/11/24 07:50) Headache mometasone furoate (From Asmanex Twisthaler) Adverse Reaction (Unknown, Verified 07/11/24 07:50) Mouth Sores Have you fallen in the past year?: No Nurse's Note: cough, congest, العراقي, CP with cough, green mucus x 1 week. concern for sinus infection. denies fever, BA PFSH Medical History (Updated 07/11/24 @ 08:20 by Kennedy ODONNELL, PA) Acute sinusitis Impingement of left shoulder Left shoulder pain Bursitis, prepatellar, left Osteoarthritis of left knee Left knee pain Bicuspid aortic valve SOB (shortness of breath) Aortic stenosis Aortic root dilatation Severe aortic valve stenosis Cardiac murmur COVID-19 Chest pain Essential hypertension Anal fissure BRBPR (bright red blood per rectum) Blood in stool Heart murmur Arthritis History of back problems Lumbar stenosis Migraines Sciatica Asthma Pneumonia due to COVID-19 virus Pneumonia Obesity Fatty liver Carpal tunnel syndrome Hypertension CARMEL (obstructive sleep apnea) Surgical History History of mechanical aortic valve replacement ( 07/19/22) S/p bilateral carpal tunnel release H/O rhinoplasty Family History Mother Hypertension Kidney disease Father Hypertension Kidney disease CAD (coronary artery disease) History of coronary artery bypass surgery Grandfather Diabetes Grandmother Diabetes Social History household members: spouse Smoking Status: Never smoker alcohol intake: never substance use type: does not use caffeine: No HPI HPI Chief Complaint: cough, congest, العراقي Details: LEWIS GEORGE, is a 48 M who presents to the office today for complaint of cough, congestion, headache and sinus pain/pressure for the past week. Patient denies fever, chills, sweats. No nausea, vomiting or diarrhea. No loss of taste or smell. No other associated symptoms or alleviating/aggravat ing factors. ROS Const Constitutional: Positive for other (as noted in HPI) Exam Const General: cooperative and healthy appearing HENMT Head: normal to inspection Ears: hearing grossly normal bilaterally, TM's normal bilaterally and EAC's normal Nose: nasal discharge purulent Face and sinus: sinus tenderness frontal and maxillary Mouth: oral mucosae normal Throat: abnormal tonsil bilaterally erythema and hypertrophy 1+ and postnasal drainage Resp Effort Inspection: normal respiratory effort Auscultation: Bilateral: Clear to Auscultation Cardio Rate: regular rate Rhythm: regular rhythm Neuro General: patient alert Psych Appearance: grossly normal Mental Status: mental status grossly normal Results POC CELIA Covid FluAB PCR POC Celia Covid PCR Not Detected Last Edit by Chen Dial on 07/11/24 08:07 POC CELIA FLU NOT DETECTED FLU A B Last Edit by Chen Dial on 07/11/24 08:07 Coding Level of Care Code Off vis,est,level 3 Diagnoses Acute sinusitis J01.90 Contact with or suspected exposure to other viral communicable disease Z20.828 Assessment and Plan Assessment and Plan (1) Acute sinusitis: Status: Acute (2) Contact with or suspected exposure to other viral communicable disease: Status: Acute Orders: Orders POC Celia Covid FLUAB PCR Today Medications: New amoxicillin-pot clavulanate 875-125 mg 1 TAB PO Q12H 10 days 20 tabs 0RF J01.90 - Acute sinusitis, unspecified Plan Patient tested negative for COVID in the office today. Augmentin as prescribed today. Encouraged to get plenty of rest, drink lots of clear liquids, and use Tylenol or Ibuprofen (unless contraindicated) for fever and comfort. Patient also educated on other symptomatic management techniques. To be seen in 7-10 days if no improvement; sooner if wor (more content not included)... Normal [facility] Urgent Care Visit Reporton 1 08-24-2023 Urgent Care Visit Report [facility] [address], [address] [place] [address] OFFICE VISIT Date of Service: 06/23/24 MR#: [id number] Acct: [id number] Name: LEWIS GEORGE Rep #: [id number] : 1975 Provider: MOE melendez Age/Sex: 48/M Location: [facility] Status: Signed Intake Vital Signs 06/11/24 16:18 06/22/24 11:40 Height 5 ft 9 in 5 ft 9 in BP 120/80 122/60 H Blood Pressure Location Lt brachial Lt brachial Position Sitting Sitting Respiration 16 16 Pulse 112 H 94 Pulse Source Monitor NIBP Temp 98.7 F 98.2 F Temp Source Temporal Oral Pulse Oximetry (%) 97 95 Oxygen Delivery Method room air room air Intake Visit Reasons: Cough 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 Is patient in pain?: No Allergies metoprolol Adverse Reaction (Intermediate, Verified 06/11/24 16:19) Fatigue and ED formoterol (From Dulera) Adverse Reaction (Unknown, Verified 06/11/24 16:19) Headache mometasone furoate (From Asmanex Twisthaler) Adverse Reaction (Unknown, Verified 06/11/24 16:19) Mouth Sores Medications ???Medication ???Instructions ???Recorded ???Confirmed ???Type acetaminophen 500 mg tablet 1,000 mg PO Q6H PRN Pain 08/25/22 06/23/24 History warfarin 5 mg tablet 5 mg PO DAILY 01/26/23 06/23/24 History cetirizine 10 mg capsule (Zyrtec) 10 mg PO DAILY 07/20/23 06/23/24 History losartan 50 mg tablet 50 mg PO BID #180 tabs 03/18/24 06/23/24 Rx diltiazem HCl 120 mg 120 mg PO QDAY this is a dose 06/23/24 06/23/24 Rx capsule,extended release 24 hr increase #90 caps prednisone 20 mg tablet 40 mg (2 x 20 mg) PO QDAY 5 days 06/23/24 06/23/24 Rx #10 tabs Have you fallen in the past year?: No PFSH Medical History Impingement of left shoulder Left shoulder pain Bursitis, prepatellar, left Osteoarthritis of left knee Left knee pain Bicuspid aortic valve SOB (shortness of breath) Aortic stenosis Aortic root dilatation Severe aortic valve stenosis Cardiac murmur COVID-19 Chest pain Essential hypertension Anal fissure BRBPR (bright red blood per rectum) Blood in stool Heart murmur Arthritis History of back problems Lumbar stenosis Migraines Sciatica Asthma Pneumonia due to COVID-19 virus Pneumonia Obesity Fatty liver Carpal tunnel syndrome Hypertension CARMEL (obstructive sleep apnea) Surgical History History of mechanical aortic valve replacement ( 07/19/22) S/p bilateral carpal tunnel release H/O rhinoplasty Family History Mother Hypertension Kidney disease Father Hypertension Kidney disease CAD (coronary artery disease) History of coronary artery bypass surgery Grandfather Diabetes Grandmother Diabetes Social History household members: spouse Smoking Status: Never smoker alcohol intake: never substance use type: does not use caffeine: No HPI HPI Chief Complaint: cough Details: LEWIS GEORGE, is a 48 M who presents to the office today for concerns regarding ongoing cough. He was recently diagnosed with pneumonia and underwent dual antibiotic therapy with Augmentin and doxycycline. He has completed both courses without obvious incident. Despite antibiotic therapy, he continues with p continual cough. This is dry and nonproductive. ROS Const Constitutional: Positive for abnormal sleep pattern; No body ache, chills, fatigue, fever(s), headache(s) or change in appetite Eyes Eyes: No blurry vision, change in vision, double vision, irritation, discharge, vision loss, dry eyes, bulging eyes, floaters, visual disturbances, eye pain, Light sensitivity, spots in vision, tunnel vision or other ENT ENT: Positive for sore throat (resolved); No ear or mastoid pain, ear discharge, ear pressure, tinnitus, dizziness/vertigo, nosebleed/epistaxis, nasal congestion, nose pain, sinus pressure, sinus pain, nasal discharge, post nasal drip, headache(s), facial pain, dental pain, difficulty swallowing, bad breath, hoarseness, lip swelling, mouth lesions, mouth pain, neck pain, tongue swelling or throat swelling Resp Respiratory: Positive for cough Cough: Yes non-productive and shortness of breath sob: SOB with activity and SOB at rest; No change in phlegm color, chest congestion, hemoptysis, pain on inspiration, pain with cough, stridor or wheezing Cardio Cardiology: No chest pain at rest, chest pain with exertion, shortness of breath, dyspnea on exertion or lightheadedness Gastro GI: No abdominal pain, change in bowel habits or difficulty swallowing Genitourinary Male: No burning urination or urinary frequency Musc Musculoskeletal: No joint pain or (more content not included)... Normal [facility] Urgent Care Visit Reporton 1 08-11-2023 Urgent Care Visit Report [facility] [address], [address] [place] [address] OFFICE VISIT Date of Service: 06/11/24 MR#: [id number] Acct: [id number] Name: LEWIS GEORGE Rep #: [id number] : 1975 Provider: BELLE Wynn Age/Sex: 48/M Location: [facility] Status: Signed Intake Vital Signs 01/04/24 14:54 06/11/24 16:18 Height 5 ft 9 in 5 ft 9 in Weight: 274 lb BMI 40.4 BP 116/75 120/80 Blood Pressure Location Lt brachial Lt brachial Position Sitting Sitting Respiration 18 16 Pulse 84 112 H Pulse Source Monitor Monitor Temp 98.7 F Temp Source Temporal Pulse Oximetry (%) 93 97 Oxygen Delivery Method room air room air Intake Visit Reasons: COUGH/SHORT OF BREATH Chief Complaint: cough w/ sob Street [employer] Required: No Accompanied by: Self Is patient in pain?: No Allergies metoprolol Adverse Reaction (Intermediate, Verified 06/11/24 16:19) Fatigue and ED formoterol (From Dulera) Adverse Reaction (Unknown, Verified 06/11/24 16:19) Headache mometasone furoate (From Asmanex Twisthaler) Adverse Reaction (Unknown, Verified 06/11/24 16:19) Mouth Sores Medications ???Medication ???Instructions ???Recorded ???Confirmed ???Type acetaminophen 500 mg tablet 1,000 mg PO Q6H PRN Pain 08/25/22 06/11/24 History warfarin 5 mg tablet 5 mg PO DAILY 01/26/23 06/11/24 History cetirizine 10 mg capsule (Zyrtec) 10 mg PO DAILY 07/20/23 06/11/24 History diltiazem HCl 120 mg 120 mg PO BID this is a dose 03/18/24 06/11/24 Rx capsule,extended release 24 hr increase #180 caps losartan 50 mg tablet 50 mg PO BID #180 tabs 03/18/24 06/11/24 Rx amoxicillin 875 mg-potassium 1 tab PO BID #20 tabs 06/11/24 06/11/24 Rx clavulanate 125 mg tablet doxycycline monohydrate 100 mg 100 mg PO BID #20 caps 06/11/24 06/11/24 Rx capsule PFSH Medical History Impingement of left shoulder Left shoulder pain Bursitis, prepatellar, left Osteoarthritis of left knee Left knee pain Bicuspid aortic valve SOB (shortness of breath) Aortic stenosis Aortic root dilatation Severe aortic valve stenosis Cardiac murmur COVID-19 Chest pain Essential hypertension Anal fissure BRBPR (bright red blood per rectum) Blood in stool Heart murmur Arthritis History of back problems Lumbar stenosis Migraines Sciatica Asthma Pneumonia due to COVID-19 virus Pneumonia Obesity Fatty liver Carpal tunnel syndrome Hypertension CARMEL (obstructive sleep apnea) Surgical History History of mechanical aortic valve replacement ( 07/19/22) S/p bilateral carpal tunnel release H/O rhinoplasty Family History Mother Hypertension Kidney disease Father Hypertension Kidney disease CAD (coronary artery disease) History of coronary artery bypass surgery Grandfather Diabetes Grandmother Diabetes Social History household members: spouse Smoking Status: Never smoker alcohol intake: never substance use type: does not use caffeine: No HPI HPI Chief Complaint: cough w/ sob Details: LEWIS GEORGE, is a 48 M who presents to the office today for [facility] for approximately 6 day history of persistent cough, العراقي, myalgias, fatigue, congestion, fatigue. Patient notes no complaints of chest pain or dyspnea on exertion - though admits mild sob. Nonsmoker. Several close contacts (2 sons) recently diagnosed with pneumonia and is concerned he may have the same. No [id number] taken to assist. No other associated symptoms and no other alleviating/aggravat ing factors. ROS Const Constitutional: No other (As above) Exam Const General: cooperative, healthy appearing and no acute distress Orientation: alert, awake and oriented x3 HENMT Head: normal to inspection Ears: hearing grossly normal bilaterally, external ears normal, TM's normal bilaterally and EAC's normal Nose: external nose normal, nares normal, septum normal and clear nasal discharge Face and sinus: normal facial exam, sinuses nontender and face symmetric Mouth: oral mucosae normal, lip normal, tongue normal and oropharynx normal Throat: posterior oropharynx normal, tonsils normal, uvula midline and no postnasal drainage Eyes General: appearance normal, both eyes and all related structures Neck Neck: normal visual inspection, full ROM, no lymphadenopathy, no meningeal signs and supple Neck mass: No Thyroid: thyroid normal Lymphatic: no lymphadenopathy noted Chest Chest palpation inspection: normal inspection of the chest Resp Effort Inspection: normal respiratory effort, able to speak in complete sentences an (more content not included)... Normal [facility] Orthopedic Visit Reporton Orthopedic Visit Report [facility] [address] [place] [address] OFFICE VISIT Date of Service: 03/22/24 MR#: [id number] Acct: [id number] Name: LEWIS GEORGE Rep #: [id number] : 1975 Provider: Dr. Roverto powell MD Age/Sex: 48/M Location: [facility] Status: Signed with Addenda ADDENDUM by Erica Hernandez on 03/22/24 at 1536 Office Procedure Documentation entered by Erica Hernandez 03/22/24 15:36: Ortho Injections Injections Yes Subacromial Injection Left Is this a patient provided medication?: No Details: Obtained consent for injection. Under sterile conditions, injected the patients left shoulder with 2cc Kenalog 4cc Bupivacaine. The patient tolerated the injection well without any noted complication. Patient should call our office if redness develops, pain worsens or if they have any concerns. Office Meds Kenalog 40 mg/mL suspension for injection Performing Provider: Roverto Dale MD Performing Location: [facility] Administered by: Roverto Dale MD on 03/22/24 15:33 Dose Route Admin Location Dispensed Lot Number Expiration Date NDC Man ufacturer 80 mg intra-articular left shoulder 2 mL [id number] 10/22/25 7758-6199-53 [facility] Comments: Bupivacaine 0.25% 4cc lot : [id number] exp : 09/21/24 ND : 6925-1349-46 Date cc: * Signed Intake Vital Signs 01/04/24 14:54 Height 5 ft 9 in Weight: 274 lb BMI 40.4 BP 116/75 Blood Pressure Location Lt brachial Position Sitting Respiration 18 Pulse 84 Pulse Source Monitor Pulse Oximetry (%) 93 Oxygen Delivery Method room air Intake Visit Reasons: LEFT SHOULDER Accompanied by: Self Is patient in pain?: Yes Pain scale (1-10): 2 Allergies metoprolol Adverse Reaction (Intermediate, Verified 03/22/24 14:33) Fatigue and ED formoterol (From Dulera) Adverse Reaction (Unknown, Verified 03/22/24 14:33) Headache mometasone furoate (From Asmanex Twisthaler) Adverse Reaction (Unknown, Verified 03/22/24 14:33) Mouth Sores Medications ???Medication ???Instructions ???Recorded ???Confirmed ???Type acetaminophen 500 mg tablet 1,000 mg PO Q6H PRN Pain 08/25/22 03/22/24 History warfarin 5 mg tablet 5 mg PO DAILY 01/26/23 03/22/24 History cetirizine 10 mg capsule (Zyrtec) 10 mg PO DAILY 07/20/23 03/22/24 History diltiazem HCl 120 mg 120 mg PO BID this is a dose 03/18/24 03/22/24 Rx capsule,extended release 24 hr increase #180 caps losartan 50 mg tablet 50 mg PO BID #180 tabs 03/18/24 03/22/24 [facility] History (Updated 03/22/24 @ 15:14 by Roverto Dale MD) Impingement of left shoulder Left shoulder pain Bursitis, prepatellar, left Osteoarthritis of left knee Left knee pain Bicuspid aortic valve SOB (shortness of breath) Aortic stenosis Aortic root dilatation Severe aortic valve stenosis Cardiac murmur COVID-19 Chest pain Essential hypertension Anal fissure BRBPR (bright red blood per rectum) Blood in stool Heart murmur Arthritis History of back problems Lumbar stenosis Migraines Sciatica Asthma Pneumonia due to COVID-19 virus Pneumonia Obesity Fatty liver Carpal tunnel syndrome Hypertension CARMEL (obstructive sleep apnea) Surgical History History of mechanical aortic valve replacement ( 07/19/22) S/p bilateral carpal tunnel release H/O rhinoplasty Family History Mother Hypertension Kidney disease Father Hypertension Kidney disease CAD (coronary artery disease) History of coronary artery bypass surgery Grandfather Diabetes Grandmother Diabetes Social History household members: spouse Smoking Status: Never smoker alcohol intake: never substance use type: does not use caffeine: No HPI LEFT SHOULDER Details: This documentation accurately reflects the service provided and the decisions made by me, Dr. Roverto Dale MD 03/22/24 1430. Part of today???s visit was documented by [ ], acting as scribe. 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 RHD. level of the pain is a 2/10 constant feeling. comes and goes, worse with the day progressing. worse with rolling over onto the shoulder, does wake him up. Ortho Exam General General: Yes no acute distress Neurologic: Yes alert and Yes oriented x3 Psychologic: Yes reasonable and appropriate Left Shoulder Skin/Wound: Yes CDI, No ecchymosis, No erythema and No swelling Testing: Yes Hawkin's, Yes Neer's, Yes Speed's, Y (more content not included)... Normal [facility] Shoulder min 2 Viewson 03-22 Shoulder min 2 Views [facility] [address] [place] [address] Shoulder min 2 Views MR#: [id number] Acct: [id number] Name: LEWIS GEORGE Rep #: [id number] : 1975 M 48 From: Usman Farmer PCP: RAYSHAWN CORTES Status: DEP AMB Study: Shoulder min 2 Views Date of Exam: 03/22/24 Exam# [id number] Ordering Dr: Roverto Dale MD [id number] EXAM: XR LEFT SHOULDER COMPLETE, 2 OR MORE VIEWS CLINICAL INDICATION: pain TECHNIQUE: Two or more views of the left shoulder. COMPARISON: No relevant prior studies available. FINDINGS: BONES/JOINTS: Unremarkable. No acute fracture. No subluxation. Normal alignment. Preservation of the joint space. No sclerotic or destructive changes observed. SOFT TISSUES: Unremarkable. No soft tissue swelling or gas. No radiopaque foreign body. RAD/Shoulder min 2 Views IMPRESSION: Negative left shoulder x-rays. Electronically Signed: Usman Britton MD at 7:39 EDT , CC: RAYSHAWN CORTES; Dr. Roverto Dale MD Credit Historian: Signed Normal [facility] Laboratory - Microbiology an d Antimicrobial susceptibilityon 09-16-2023 SARS-CoV-2 (COVID-19) RNA CHAITANYA+probe Ql (Unsp spec) Not detected [facility] No Panel Informationon 09-16 Influenza Types A,B Rapid (Clinic) Detected [facility] Basophil percentageOrdered B y: Archie Chavarria on 07-20-2023 Chloride [Moles/Vol] 109 mmol/L 98-107 [facility] Glucose [Mass/Vol] 92 mg/dL 74-106 [facility] Potassium [Moles/Vol] 4.1 mmol/L 3.5-5.1 [facility] Sodium [Moles/Vol] 141 mmol/L 136-145 [facility] Laboratory - Chemistry and C hemistry - challengeOrdered By: Archie Chavarria on 07-20-2023 CO2 [Moles/Vol] 28.0 mmol/L 21.0-32.0 [facility] Urea nitrogen/Creatinine [Mass ratio] 22.9 mg/mg 10-20 [facility] No Panel InformationOrdered By: Archie Chavarria on 07-20-2023 Estimated GFR (MDRD) Amer 113 mL/min >60 [facility] Comment on above: GFR Calc Estimated GFR (MDRD) Non-Af Amer 93 mL/min >60 [facility] Comment on above: Non- GFR Calc Serum or plasma calcium sampson urement (mass/volume)Ordered By: Archie Chavarria on 07-20-2023 Calcium [Mass/Vol] 8.9 mg/dL 8.5-10.1 [facility] Serum or plasma creatinine m easurement (mass/volume)Ordered By: Archie Chavarria on 07-20-2023 Creatinine [Mass/Vol] 0.92 mg/dL 0.70-1.30 [facility] Comment on above: The validity of the calculated GFR & GFRAA in patients over 70 years has not been determined. Clinical correlation is essential. Serum or plasma urea nitroge n measurement (mass/volume)Ordered By: Archie Chavarria on 07-20-2023 Urea nitrogen [Mass/Vol] 21 mg/dL 7-18 [facility] Thin prep Papanicolaou smear with manual screeningOrdered By: Archie Chavarria on 07-20-2023 Thin prep Papanicolaou smear with manual screening 4 5-15 [facility] Absolute lymphocyte countOrd ered By: Archie Chavarria on 10-05-2022 Lymphocytes Auto (Unsp spec) [#/Vol] 1.88 10*3/uL 0.83-4.51 [facility] Basophil percentageOrdered B y: Archie Chavarria on 10-05-2022 Basophils/100 WBC (Bld) 0.8 % 0-1 [facility] Chloride [Moles/Vol] 110 mmol/L 98-107 [facility] Eosinophils/100 WBC (Bld) 5.8 % 0-5 [facility] Glucose [Mass/Vol] 110 mg/dL 74-106 [facility] Comment on above: Fasting Glucose resu lt from 100 to 125 mg/dL suggests IMPAIRED HOMEOSTASIS per A.D.A. criteria. Neutrophils (Bld) [#/Vol] 2.4 10*3/uL 2.0-7.7 [facility] Neutrophils/100 WBC (Bld) 46.6 % 47-70 [facility] Potassium [Moles/Vol] 3.6 mmol/L 3.5-5.1 [facility] Sodium [Moles/Vol] 142 mmol/L 136-145 [facility] WBC (Bld) [#/Vol] 5.2 10*3/uL 4.4-11.0 [facility] Blood erythrocytes count (nu mber/volume)Ordered By: Archie Chavarria on 10-05-2022 RBC (Bld) [#/Vol] 5.53 10*6/uL 4.6-6.2 [facility] Blood hemoglobin measurement (mass/volume)Ordered By: Archie Chavarria on 10-05-2022 Hemoglobin (Bld) [Mass/Vol] 15.0 g/dL 13.0-16.5 [facility] Blood lymphocytes/100 leukoc ytesOrdered By: Archie Chavarria on 10-05-2022 Lymphocytes/100 WBC (Bld) 36.2 % 19-41 [facility] Blood monocytes/100 leukocyt esOrdered By: Archie Chavarria on 10-05-2022 Monocytes/100 WBC (Bld) 10.2 % 0-10 [facility] Blood platelet mean volumeOr dered By: Archie Chavarria on 10-05-2022 Platelet mean volume (Bld) [Entitic vol] 10.1 fL 6.2-12.0 [facility] Determination of erythrocyte mean corpuscular volume (MCV)Ordered By: Archie Chavarria on 10-05-2022 MCV (RBC) [Entitic vol] 83.7 fL 80-94 [facility] Hematocrit Auto (Bld) [Volum e fraction]Ordered By: Archie Chavarria on 10-05-2022 Hematocrit (Bld) [Volume fraction] 46.3 % 40-54 [facility] - Chemistry and C hemistry - challengeOrdered By: Archie Chavarria on 10-05-2022 CO2 [Moles/Vol] 26.0 mmol/L 21.0-32.0 [facility] Urea nitrogen/Creatinine [Mass ratio] 20.0 mg/mg 10-20 [facility] - Hematology and Cell countsOrdered By: Archie Chavarria on 10-05-2022 Erythrocyte distribution width (RBC) [Entitic vol] 40.9 fL 35.1-43.9 [facility] Erythrocyte distribution width (RBC) [Ratio] 13.3 % 11.6-14.6 [facility] Immature granulocytes/100 WBC (Bld) 0.400 % 0.0-0.9 [facility] Comment on above: IG% - Immature Granu locytes (promyelocytes, myelocytes and metamyelocytes) > 1% indicates that a LEFT SHIFT is Present. MCH (RBC) [Entitic mass] 27.1 pg 27.0-32.0 [facility] Nucleated RBC/100 WBC (Bld) [Ratio] 0 % 0-5 [facility] MCHC Auto (RBC) [Mass/Vol]Or dered By: Archie Chavarria on 10-05-2022 MCHC (RBC) [Mass/Vol] 32.4 g/dL 32-36 [facility] No Panel InformationOrdered By: Archie Chavarria on 10-05-2022 Estimated GFR (MDRD) Amer 116 mL/min >60 [facility] Comment on above: GFR Calc Estimated GFR (MDRD) Non-Af Amer 96 mL/min >60 [facility] Comment on above: Non- GFR Calc Platelets bldOrdered By: Kaiden Chavarria on 10-05-2022 Platelets (Bld) [#/Vol] 244 10*3/uL 150-450 [facility] Serum or plasma calcium sampson urement (mass/volume)Ordered By: Archie Chavarria on 10-05-2022 Calcium [Mass/Vol] 8.9 mg/dL 8.5-10.1 [facility] Serum or plasma creatinine m easurement (mass/volume)Ordered By: Archie Chavarria on 10-05-2022 Creatinine [Mass/Vol] 0.90 mg/dL 0.70-1.30 [facility] Comment on above: The validity of the calculated GFR & GFRAA in patients over 70 years has not been determined. Clinical correlation is essential. Serum or plasma urea nitroge n measurement (mass/volume)Ordered By: Archie Chavarria on 10-05-2022 Urea nitrogen [Mass/Vol] 18 mg/dL 02-07 [facility] Thin prep Papanicolaou smear with manual screeningOrdered By: Archie Chavarria on 10-05-2022 Thin prep Papanicolaou smear with manual screening 6 12-05 [facility] CNPNon 09-30-2022 CNPN Normal [facility] CNPNon 09-07-2022 CNPN Normal [facility] CNPNon 09-02-2022 CNPN Normal [facility] CBC panel Auto (Bld)on 09-01 Erythrocyte distribution width (RBC) [Ratio] 12.6 % Normal 11.5-15.0 [facility] Comment on above: Order Comment: Speci men Type: BLOOD SPECIMENOrdering Facility: [facility] Address: [address] [place] [address] Performed By: #### 5 8410-2 ####[facility] [id number] [address] [place] Hematocrit (Bld) [Volume fraction] 39.7 % Normal 39.0-51.0 [facility] Comment on above: Order Comment: Speci men Type: BLOOD SPECIMENOrdering Facility: [facility] Address: [address] [place] [address] Performed By: #### 5 8410-2 ####[facility] [id number] [place] [address] [place] Hemoglobin (Bld) [Mass/Vol] 13.5 g/dL Normal 13.0-17.0 [facility] Comment on above: Order Comment: Speci men Type: BLOOD SPECIMENOrdering Facility: [facility] Address: [address] [place] [address] Performed By: #### 5 8410-2 ####[facility] [id number] [place] [address] [place] MCH (RBC) [Entitic mass] 28.2 pg Normal 26.0-34.0 [facility] Comment on above: Order Comment: Speci men Type: BLOOD SPECIMENOrdering Facility: [facility] Address: [address] Performed By: #### 5 8410-2 ####[facility] [id number] [place] [address] [place] MCHC (RBC) [Mass/Vol] 34.0 g/dL Normal 30.5-36.0 [facility] Comment on above: Order Comment: Speci men Type: BLOOD SPECIMENOrdering Facility: [facility] Address: [address] Performed By: #### 5 8410-2 ####[facility] [id number] [address] [place] MCV (RBC) [Entitic vol] 83.1 fL Normal 80.0-100.0 [facility] Comment on above: Order Comment: Speci men Type: BLOOD SPECIMENOrdering Facility: [facility] Address: [address] [place] [id number] Performed By: #### 5 8410-2 ####[facility] [id number] [place] [address] [place] Nucleated RBC (Bld) [#/Vol] 10*3/uL Normal <0.01 [facility] Comment on above: Order Comment: Speci men Type: BLOOD SPECIMENOrdering Facility: [facility] Address: [address] Performed By: #### 5 8410-2 ####[facility] [id number] [place] [address] [place] Platelet mean volume (Bld) [Entitic vol] 9.1 fL Normal 9.0-12.7 [facility] Comment on above: Order Comment: Speci men Type: BLOOD SPECIMENOrdering Facility: [facility] Address: [address] [place] [address] Performed By: #### 5 8410-2 ####[facility] [id number] [place] [address] [place] Platelets (Bld) [#/Vol] 322 10*3/uL Normal 150-400 [facility] Comment on above: Order Comment: Speci men Type: BLOOD SPECIMENOrdering Facility: [facility] Address: [address] [place] [id number] Performed By: #### 5 8410-2 ####[facility] [id number] [place] [address] [facility] [place] RBC (Bld) [#/Vol] 4.78 10*6/uL Normal 4.20-6.00 [facility] Comment on above: Order Comment: Speci men Type: BLOOD SPECIMENOrdering Facility: [facility] Address: [address] [place] [id number] Performed By: #### 5 8410-2 ####[facility] [id number] [place] [address] [place] WBC (Bld) [#/Vol] 8.11 10*3/uL Normal 3.70-11.00 [facility] Comment on above: Order Comment: Speci men Type: BLOOD SPECIMENOrdering Facility: [facility] Address: [address] [place] [id number] Performed By: #### 5 8410-2 ####[facility] [id number] [place] [id number] [place] CNPNon 09-01-2022 CNPN Normal [facility] Comprehensive metabolic 2000 panelon 09-01-2022 Albumin [Mass/Vol] 4.3 g/dL Normal 3.9-4.9 [facility] Comment on above: Order Comment: Speci men Type: BLOOD SPECIMENOrdering Facility: [facility] Address: [address] [place] [id number] Performed By: #### 2 4323-8 ####[facility] [id number] [place] [address] [place] ALP [Catalytic activity/Vol] 74 U/L Normal 38-113 [facility] Comment on above: Order Comment: Speci men Type: BLOOD SPECIMENOrdering Facility: [facility] Address: [address] [place] [id number] Performed By: #### 2 4323-8 ####[facility] [id number] [place] [address] [place] ALT [Catalytic activity/Vol] 31 U/L Normal 10-54 [facility] Comment on above: Order Comment: Speci men Type: BLOOD SPECIMENOrdering Facility: [facility] Address: [address] [place] [address] Performed By: #### 2 4323-8 ####[facility] [id number] [place] [address] [place] Anion gap [Moles/Vol] 13 mmol/L Normal 9-18 [facility] Comment on above: Order Comment: Speci men Type: BLOOD SPECIMENOrdering Facility: [facility] Address: [address] [place] [id number] Performed By: #### 2 4323-8 ####[facility] [id number] [place] [address] [place] AST [Catalytic activity/Vol] 23 U/L Normal 14-40 [facility] Comment on above: Order Comment: Speci men Type: BLOOD SPECIMENOrdering Facility: [facility] Address: [address] [place] [id number] Performed By: #### 2 4323-8 ####[facility] [id number] [place] [address] [place] Bilirubin [Mass/Vol] 0.5 mg/dL Normal 0.2-1.3 [facility] Comment on above: Order Comment: Speci men Type: BLOOD SPECIMENOrdering Facility: [facility] Address: [address] Performed By: #### 2 4323-8 ####[facility] [id number] [place] [address] [place] Calcium [Mass/Vol] 9.7 mg/dL Normal 8.5-10.2 [facility] Comment on above: Order Comment: Speci men Type: BLOOD SPECIMENOrdering Facility: [facility] Address: [address] Performed By: #### 2 4323-8 ####[facility] [id number] [place] [address] [place] Chloride [Moles/Vol] 106 mmol/L High 97-105 [facility] Comment on above: Order Comment: Speci men Type: BLOOD SPECIMENOrdering Facility: [facility] Address: [address] Performed By: #### 2 4323-8 ####[facility] [id number] [place] [address] [place] CO2 [Moles/Vol] 23 mmol/L Normal 22-30 [facility] Comment on above: Order Comment: Speci men Type: BLOOD SPECIMENOrdering Facility: [facility] Address: [address] Performed By: #### 2 4323-8 ####[facility] [id number] [place] [address] [place] Creatinine [Mass/Vol] 0.93 mg/dL Normal 0.73-1.22 [facility] Comment on above: Order Comment: Speci men Type: BLOOD SPECIMENOrdering Facility: [facility] Address: [address] Performed By: #### 2 4323-8 ####[facility] [id number] [address] ESTIMATED GLOMERULAR FILTRATION RATE 102 mL/min/1.73m??? Normal >=60 [facility] Comment on above: Order Comment: Specmarcus schmidt Type: BLOOD SPECIMENOrdering Facility: [facility] Address: [address] [address] Result Comment: Lucina mated Glomerular Filtration Rate (eGFR) is calculated using the 2020 CKD-EPI creatinine equation. This equation utilizes serum creatinine, sex, and age as parameters. The creatinine assay has traceable calibration to isotope dilution-mass spectrometry. Refer to KDIGO guidelines for clinical interpretation. In patients with unstable renal function, e.g. those with acute kidney injury, the eGFR may not accurately reflect actual GFR. Performed By: #### 2 4323-8 ####[facility] [id number] [address] Glucose [Mass/Vol] 104 mg/dL High 74-99 [facility] Comment on above: Order Comment: Specmarcus schmidt Type: BLOOD SPECIMENOrdering Facility: [facility] Address: [address] [place] [address] Result Comment: The [place] [employer] (ADA) provides guidance for cutoff values for fasting glucose and random glucose. The ADA defines fasting as no caloric intake for at least 8 hours. Fasting plasma glucose results between 100 to 125 mg/dL indicate increased risk for diabetes (prediabetes).Fasting plasma glucose results greater than or equal to 126 mg/dL meet the criteria for diagnosis of diabetes. In the absence of unequivocal hyperglycemia, results should be confirmed by repeat testing. In a patient with classic symptoms of hyperglycemia or hyperglycemic crisis, random plasma glucose results greater than or equal to 200 mg/dL meet the criteria for diagnosis of diabetes.Reference: Standards of Medical Care in Diabetes 2016, [place] [employer]. Diabetes Care. 2016.39(Suppl 1). Performed By: #### 2 4323-8 ####[facility] [id number] [id number] [address] [place] Potassium [Moles/Vol] 4.5 mmol/L Normal 3.7-5.1 [facility] Comment on above: Order Comment: Speci men Type: BLOOD SPECIMENOrdering Facility: [facility] Address: [address] [place] [address] Performed By: #### 2 4323-8 ####[facility] [id number] [place] [address] [place] Protein [Mass/Vol] 7.5 g/dL Normal 6.3-8.0 [facility] Comment on above: Order Comment: Speci men Type: BLOOD SPECIMENOrdering Facility: [facility] Address: [address] [place] [address] Performed By: #### 2 4323-8 ####[facility] [id number] [place] [address] [place] Sodium [Moles/Vol] 142 mmol/L Normal 136-144 [facility] Comment on above: Order Comment: Speci men Type: BLOOD SPECIMENOrdering Facility: [facility] Address: [address] [place] [phone] Performed By: #### 2 4323-8 ####[facility] [id number] [place] [address] [place] Urea nitrogen [Mass/Vol] 19 mg/dL Normal 9-24 [facility] Comment on above: Order Comment: Speci men Type: BLOOD SPECIMENOrdering Facility: [facility] Address: [address] [place] [id number] Performed By: #### 2 4323-8 ####[facility] [id number] [place] [address] [place] NUTRITIONon 09-01-2022 NUTRITION Normal [facility] PT panel Coag (PPP)on 2022 INR Coag (PPP) [Relative time] 1.9 {INR} High 0.9-1.3 [facility] Comment on above: Order Comment: Noah schmidt Type: BLOOD SPECIMENOrdering Facility: [facility] Address: [address] [place] [address] Result Comment: Zofia min K Antagonist (VKA) Therapeutic Range: INR 2 to 3 (Target INR of 2.5)Note: For patients treated with VKA drugs, such as warfarin, the [place] [employer] 2012 Guideline recommends a therapeutic INR range of 2 to 3 (target INR of 2.5). This recommendation includes high-risk patients with antiphospholipid syndrome with previous arterial or venous thromboembolism, current-generation mechanical or bioprosthetic aortic heart valve replacement.Note: Patients with mechanical aortic valve replacement and additional risk factors for thromboembolic events (atrial fibrillation, previous thromboembolism, LV dysfunction, hypercoagulable conditions) or an older generation mechanical AVR (i.e., ball in-Cage) or any mechanical MVR should have a INR therapeutic range of 2.5 to 3.5 (target INR of 3).Suzanne GH, et al. Chest 2012, 141:7S-47SNishimura RA, et al. [facility] 2017, 70: 252-289 Performed By: #### 3 4528-0, 36494-1 ####[facility] [id number] [place] [address] [place] PT Coag (PPP) [Time] 18.6 s High 9.7-13.0 [facility] Comment on above: Order Comment: Noah schmidt Type: BLOOD SPECIMENOrdering Facility: [facility] Address: [address] [place], [place] [address] Performed By: #### 3 4528-0, 79819-3 ####[facility] [id number] [place] [address] [place] aPTT PPPon 09-01-2022 aPTT Coag (PPP) [Time] 34.7 s High 23.0-32.4 [facility] Comment on above: Order Comment: Noah schmidt Type: BLOOD SPECIMENOrdering Facility: [facility] Address: [address] [address] Performed By: #### 3 4528-0, 01916-8 ####[facility] [id number] [place] [address] [place] CASE MANAGEMon 08-31-2022 CASE MANAGEM Normal [facility] CBC panel Auto (Bld)on 08-31 Erythrocyte distribution width (RBC) [Ratio] 12.7 % Normal 11.5-15.0 [facility] Comment on above: Order Comment: Speci men Type: BLOOD SPECIMENOrdering Facility: [facility] Address: [address] [address] Performed By: #### 5 8410-2 ####[facility] [id number] [address] [place] Hematocrit (Bld) [Volume fraction] 37.6 % Low 39.0-51.0 [facility] Comment on above: Order Comment: Speci men Type: BLOOD SPECIMENOrdering Facility: [facility] Address: [address] [address] Performed By: #### 5 8410-2 ####[facility] [id number] [address] [place] Hemoglobin (Bld) [Mass/Vol] 12.7 g/dL Low 13.0-17.0 [facility] Comment on above: Order Comment: Speci men Type: BLOOD SPECIMENOrdering Facility: [facility] Address: [address] [address] Performed By: #### 5 8410-2 ####[facility] [id number] [place] [address] [place] MCH (RBC) [Entitic mass] 27.9 pg Normal 26.0-34.0 [facility] Comment on above: Order Comment: Speci men Type: BLOOD SPECIMENOrdering Facility: [facility] Address: [address] [address] Performed By: #### 5 8410-2 ####[facility] [id number] [address] [place] [facility] MCHC (RBC) [Mass/Vol] 33.8 g/dL Normal 30.5-36.0 [facility] Comment on above: Order Comment: Speci men Type: BLOOD SPECIMENOrdering Facility: [facility] Address: [address] [place] [phone] Performed By: #### 5 8410-2 ####[facility] [id number] [address] [place] MCV (RBC) [Entitic vol] 82.6 fL Normal 80.0-100.0 [facility] Comment on above: Order Comment: Speci men Type: BLOOD SPECIMENOrdering Facility: [facility] Address: [address] [place] [phone] Performed By: #### 5 8410-2 ####[facility] [id number] [place] [address] [place] Nucleated RBC (Bld) [#/Vol] 10*3/uL Normal <0.01 [facility] Comment on above: Order Comment: Speci men Type: BLOOD SPECIMENOrdering Facility: [facility] Address: [address] [place] [address] Performed By: #### 5 8410-2 ####[facility] [id number] [address] [place] Platelet mean volume (Bld) [Entitic vol] 9.1 fL Normal 9.0-12.7 [facility] Comment on above: Order Comment: Speci men Type: BLOOD SPECIMENOrdering Facility: [facility] Address: [address] [place] [phone] Performed By: #### 5 8410-2 ####[facility] [id number] [place] [address] [place] Platelets (Bld) [#/Vol] 292 10*3/uL Normal 150-400 [facility] Comment on above: Order Comment: Speci men Type: BLOOD SPECIMENOrdering Facility: [facility] Address: [address] [place] [address] Performed By: #### 5 8410-2 ####[facility] [id number] [place] [address] [place] RBC (Bld) [#/Vol] 4.55 10*6/uL Normal 4.20-6.00 [facility] Comment on above: Order Comment: Speci men Type: BLOOD SPECIMENOrdering Facility: [facility] Address: [address] [place] [address] Performed By: #### 5 8410-2 ####[facility] [id number] [place] [address] [place] [facility] WBC (Bld) [#/Vol] 7.09 10*3/uL Normal 3.70-11.00 [facility] Comment on above: Order Comment: Speci men Type: BLOOD SPECIMENOrdering Facility: [facility] Address: [address] [place] [phone] Performed By: #### 5 8410-2 ####[facility] [id number] [place] [address] [place] Comprehensive metabolic 2000 panelon 08-31-2022 Albumin [Mass/Vol] 4.1 g/dL Normal 3.9-4.9 [facility] Comment on above: Order Comment: Speci men Type: BLOOD SPECIMENOrdering Facility: [facility] Address: [address] [place] [phone] Performed By: #### 2 4323-8 ####[facility] [id number] [place] [address] [place] ALP [Catalytic activity/Vol] 63 U/L Normal 38-113 [facility] Comment on above: Order Comment: Speci men Type: BLOOD SPECIMENOrdering Facility: [facility] Address: [address] [place] [address] Performed By: #### 2 4323-8 ####[facility] [id number] [place] [address] [place] ALT [Catalytic activity/Vol] 25 U/L Normal 10-54 [facility] Comment on above: Order Comment: Speci men Type: BLOOD SPECIMENOrdering Facility: [facility] Address: [address] [place] [address] Performed By: #### 2 4323-8 ####[facility] [id number] [place] [address] [place] Anion gap [Moles/Vol] 11 mmol/L Normal 9-18 [facility] Comment on above: Order Comment: Speci men Type: BLOOD SPECIMENOrdering Facility: [facility] Address: [address] [place] [address] Performed By: #### 2 4323-8 ####[facility] [id number] [place] [address] [place] AST [Catalytic activity/Vol] 21 U/L Normal 14-40 [facility] Comment on above: Order Comment: Speci men Type: BLOOD SPECIMENOrdering Facility: [facility] Address: [address] Performed By: #### 2 4323-8 ####[facility] [id number] [place] [address] [place] Bilirubin [Mass/Vol] 0.7 mg/dL Normal 0.2-1.3 [facility] Comment on above: Order Comment: Speci men Type: BLOOD SPECIMENOrdering Facility: [facility] Address: [address] [place] [phone] Performed By: #### 2 4323-8 ####[facility] [id number] [facility] [place] [address] [place] Calcium [Mass/Vol] 9.5 mg/dL Normal 8.5-10.2 [facility] Comment on above: Order Comment: Speci men Type: BLOOD SPECIMENOrdering Facility: [facility] Address: [address] [place] [phone] Performed By: #### 2 4323-8 ####[facility] [id number] [place] [address] [place] Chloride [Moles/Vol] 103 mmol/L Normal 97-105 [facility] Comment on above: Order Comment: Speci men Type: BLOOD SPECIMENOrdering Facility: [facility] Address: [address] Performed By: #### 2 4323-8 ####[facility] [id number] [place] [address] [place] CO2 [Moles/Vol] 27 mmol/L Normal 22-30 [facility] Comment on above: Order Comment: Speci men Type: BLOOD SPECIMENOrdering Facility: [facility] Address: [address] [place] [address] Performed By: #### 2 4323-8 ####[facility] [id number] [place] [address] [place] Creatinine [Mass/Vol] 1.05 mg/dL Normal 0.73-1.22 [facility] Comment on above: Order Comment: Speci men Type: BLOOD SPECIMENOrdering Facility: [facility] Address: [address] [place] [phone] Performed By: #### 2 4323-8 ####[facility] [id number] [place] [address] [place] ESTIMATED GLOMERULAR FILTRATION RATE 88 mL/min/1.73m??? Normal >=60 [facility] Comment on above: Order Comment: Noah schmidt Type: BLOOD SPECIMENOrdering Facility: [facility] Address: [address] [place] [address] Result Comment: Lucina mated Glomerular Filtration Rate (eGFR) is calculated using the 2020 CKD-EPI creatinine equation. This equation utilizes serum creatinine, sex, and age as parameters. The creatinine assay has traceable calibration to isotope dilution-mass spectrometry. Refer to KDIGO guidelines for clinical interpretation. In patients with unstable renal function, e.g. those with acute kidney injury, the eGFR may not accurately reflect actual GFR. Performed By: #### 2 4323-8 ####[facility] [id number] [place] [address] [place] Glucose [Mass/Vol] 91 mg/dL Normal 74-99 [facility] Comment on above: Order Comment: Noah schmidt Type: BLOOD SPECIMENOrdering Facility: [facility] Address: [address] [place] [address] Result Comment: The [place] [employer] (ADA) provides guidance for cutoff values for fasting glucose and random glucose. The ADA defines fasting as no caloric intake for at least 8 hours. Fasting plasma glucose results between 100 to 125 mg/dL indicate increased risk for diabetes (prediabetes).Fasting plasma glucose results greater than or equal to 126 mg/dL meet the criteria for diagnosis of diabetes. In the absence of unequivocal hyperglycemia, results should be confirmed by repeat testing. In a patient with classic symptoms of hyperglycemia or hyperglycemic crisis, random plasma glucose results greater than or equal to 200 mg/dL meet the criteria for diagnosis of diabetes.Reference: Standards of Medical Care in Diabetes 2016, [place] [employer]. Diabetes Care. 2016.39(Suppl 1). Performed By: #### 2 4323-8 ####[facility] [id number] [place] [address] [place] Potassium [Moles/Vol] 4.2 mmol/L Normal 3.7-5.1 [facility] Comment on above: Order Comment: Noah schmidt Type: BLOOD SPECIMENOrdering Facility: [facility] Address: [address] [address] Performed By: #### 2 4323-8 ####[facility] [id number] [address] STATES OF [facility] Protein [Mass/Vol] 7.4 g/dL Normal 6.3-8.0 [facility] Comment on above: Order Comment: Speci men Type: BLOOD SPECIMENOrdering Facility: [facility] Address: [address] [place] [address] Performed By: #### 2 4323-8 ####[facility] [id number] [place] [address] [place] Sodium [Moles/Vol] 141 mmol/L Normal 136-144 [facility] Comment on above: Order Comment: Speci men Type: BLOOD SPECIMENOrdering Facility: [facility] Address: [address] [place] [address] Performed By: #### 2 4323-8 ####[facility] [id number] [place] [address] [place] Urea nitrogen [Mass/Vol] 17 mg/dL Normal 9-24 [facility] Comment on above: Order Comment: Speci men Type: BLOOD SPECIMENOrdering Facility: [facility] Address: [address] [place] [address] Performed By: #### 2 4323-8 ####[facility] [id number] [place] [address] [place] ECG COMPLETEon 08-31-2022 ECG COMPLETE Normal [facility] PT panel Coag (PPP)on 2022 INR Coag (PPP) [Relative time] 1.7 {INR} High 0.9-1.3 [facility] Comment on above: Order Comment: Speci men Type: BLOOD SPECIMENOrdering Facility: [facility] Address: [address] [place] [phone] Result Comment: Zofia min K Antagonist (VKA) Therapeutic Range: INR 2 to 3 (Target INR of 2.5)Note: For patients treated with VKA drugs, such as warfarin, the [place] [employer] 2012 Guideline recommends a therapeutic INR range of 2 to 3 (target INR of 2.5). This recommendation includes high-risk patients with antiphospholipid syndrome with previous arterial or venous thromboembolism, current-generation mechanical or bioprosthetic aortic heart valve replacement.Note: Patients with mechanical aortic valve replacement and additional risk factors for thromboembolic events (atrial fibrillation, previous thromboembolism, LV dysfunction, hypercoagulable conditions) or an older generation mechanical AVR (i.e., ball in-Cage) or any mechanical MVR should have a INR therapeutic range of 2.5 to 3.5 (target INR of 3).Suzanne GH, et al. Chest 2012, 141:7S-47SElizabeth RA, et al. [facility] 2017, 70: 252-289 Performed By: #### 1 4979-9, 17407-5 ####[facility] [id number] [place] [address] [place] PT Coag (PPP) [Time] 17.5 s High 9.7-13.0 [facility] Comment on above: Order Comment: Speci men Type: BLOOD SPECIMENOrdering Facility: [facility] Address: [address] [address] Performed By: #### 1 4979-9, 11687-4 ####[facility] [id number] [place] [address] [place] aPTT PPPon 08-31-2022 aPTT Coag (PPP) [Time] 35.0 s High 23.0-32.4 [facility] Comment on above: Order Comment: Speci men Type: BLOOD SPECIMENOrdering Facility: [facility] Address: [address] [address] Performed By: #### 1 4979-9, 66468-8 ####[facility] [id number] [place] CBC panel Auto (Bld)on 08-30 Erythrocyte distribution width (RBC) [Ratio] 12.6 % Normal 11.5-15.0 [facility] Comment on above: Order Comment: Speci men Type: BLOOD SPECIMENOrdering Facility: [facility] Address: [address] [place] [address] Performed By: #### 5 8410-2 ####[facility] [id number] [address] [place] Hematocrit (Bld) [Volume fraction] 39.4 % Normal 39.0-51.0 [facility] Comment on above: Order Comment: Speci men Type: BLOOD SPECIMENOrdering Facility: [facility] Address: [address] [place] [address] Performed By: #### 5 8410-2 ####[facility] [id number] [address] [place] Hemoglobin (Bld) [Mass/Vol] 13.3 g/dL Normal 13.0-17.0 [facility] Comment on above: Order Comment: Speci men Type: BLOOD SPECIMENOrdering Facility: [facility] Address: [address] [place] [address] Performed By: #### 5 8410-2 ####[facility] [id number] [place] [address] [place] MCH (RBC) [Entitic mass] 27.8 pg Normal 26.0-34.0 [facility] Comment on above: Order Comment: Speci men Type: BLOOD SPECIMENOrdering Facility: [facility] Address: [address] [place] [phone] Performed By: #### 5 8410-2 ####[facility] [id number] [place] [address] [place] MCHC (RBC) [Mass/Vol] 33.8 g/dL Normal 30.5-36.0 [facility] Comment on above: Order Comment: Speci men Type: BLOOD SPECIMENOrdering Facility: [facility] Address: [address] [place] [phone] Performed By: #### 5 8410-2 ####[facility] [id number] [address] [place] MCV (RBC) [Entitic vol] 82.3 fL Normal 80.0-100.0 [facility] Comment on above: Order Comment: Speci men Type: BLOOD SPECIMENOrdering Facility: [facility] Address: [address] [place] [phone] Performed By: #### 5 8410-2 ####[facility] [id number] [place] [address] [place] Nucleated RBC (Bld) [#/Vol] 10*3/uL Normal <0.01 [facility] Comment on above: Order Comment: Speci men Type: BLOOD SPECIMENOrdering Facility: [facility] Address: [address] [place] [phone] Performed By: #### 5 8410-2 ####[facility] [id number] [place] [address] [place] Platelet mean volume (Bld) [Entitic vol] 9.2 fL Normal 9.0-12.7 [facility] Comment on above: Order Comment: Speci men Type: BLOOD SPECIMENOrdering Facility: [facility] Address: [address] [place] [phone] Performed By: #### 5 8410-2 ####[facility] [id number] [place] [address] [place] Platelets (Bld) [#/Vol] 302 10*3/uL Normal 150-400 [facility] Comment on above: Order Comment: Speci men Type: BLOOD SPECIMENOrdering Facility: [facility] Address: [address] [place] [phone] Performed By: #### 5 8410-2 ####[facility] [id number] [address] STATES [facility] RBC (Bld) [#/Vol] 4.79 10*6/uL Normal 4.20-6.00 [facility] Comment on above: Order Comment: Speci men Type: BLOOD SPECIMENOrdering Facility: [facility] Address: [address] Performed By: #### 5 8410-2 ####[facility] [id number] [address] [place] [facility] WBC (Bld) [#/Vol] 6.25 10*3/uL Normal 3.70-11.00 [facility] Comment on above: Order Comment: Speci men Type: BLOOD SPECIMENOrdering Facility: [facility] Address: [address] [address] [place] [id number] Performed By: #### 5 8410-2 ####[facility] [id number] [place] [address] [place] Comprehensive metabolic 2000 panelon 08-30-2022 Albumin [Mass/Vol] 4.1 g/dL Normal 3.9-4.9 [facility] Comment on above: Order Comment: Speci men Type: BLOOD SPECIMENOrdering Facility: [facility] Address: [address] [place] [address] Performed By: #### 2 4323-8 ####[facility] [id number] [place] [address] [place] ALP [Catalytic activity/Vol] 63 U/L Normal 38-113 [facility] Comment on above: Order Comment: Speci men Type: BLOOD SPECIMENOrdering Facility: [facility] Address: [address] [place], [place] [id number] Performed By: #### 2 4323-8 ####[facility] [id number] [place] [address] [place] ALT [Catalytic activity/Vol] 21 U/L Normal 10-54 [facility] Comment on above: Order Comment: Speci men Type: BLOOD SPECIMENOrdering Facility: [facility] Address: [address] [place] [address] Performed By: #### 2 4323-8 ####[facility] [id number] [place] [address] [place] Anion gap [Moles/Vol] 14 mmol/L Normal 9-18 [facility] Comment on above: Order Comment: Speci men Type: BLOOD SPECIMENOrdering Facility: [facility] Address: [address] [place] [address] Performed By: #### 2 4323-8 ####[facility] [id number] [place] [address] [place] AST [Catalytic activity/Vol] 19 U/L Normal 14-40 [facility] Comment on above: Order Comment: Speci men Type: BLOOD SPECIMENOrdering Facility: [facility] Address: [address] [place] [id number] Performed By: #### 2 4323-8 ####[facility] [id number] [place] [address] [place] Bilirubin [Mass/Vol] 0.7 mg/dL Normal 0.2-1.3 [facility] Comment on above: Order Comment: Speci men Type: BLOOD SPECIMENOrdering Facility: [facility] Address: [address] [place] [id number] Performed By: #### 2 4323-8 ####[facility] [id number] [place] [address] [place] Calcium [Mass/Vol] 9.6 mg/dL Normal 8.5-10.2 [facility] Comment on above: Order Comment: Speci men Type: BLOOD SPECIMENOrdering Facility: [facility] Address: [address] Performed By: #### 2 4323-8 ####[facility] [id number] [place] [address] [place] Chloride [Moles/Vol] 103 mmol/L Normal 97-105 [facility] Comment on above: Order Comment: Speci men Type: BLOOD SPECIMENOrdering Facility: [facility] Address: [address] Performed By: #### 2 4323-8 ####[facility] [id number] [place] [address] [place] CO2 [Moles/Vol] 23 mmol/L Normal 22-30 [facility] Comment on above: Order Comment: Speci men Type: BLOOD SPECIMENOrdering Facility: [facility] Address: [address] Performed By: #### 2 4323-8 ####[facility] [id number] [place] [address] [place] Creatinine [Mass/Vol] 0.89 mg/dL Normal 0.73-1.22 [facility] Comment on above: Order Comment: Speci men Type: BLOOD SPECIMENOrdering Facility: [facility] Address: [address] Performed By: #### 2 4323-8 ####[facility] [id number] [place] [address] [place] ESTIMATED GLOMERULAR FILTRATION RATE 106 mL/min/1.73m??? Normal >=60 [facility] Comment on above: Order Comment: Speci men Type: BLOOD SPECIMENOrdering Facility: [facility] Address: [address] Result Comment: Lucina mated Glomerular Filtration Rate (eGFR) is calculated using the 2020 CKD-EPI creatinine equation. This equation utilizes serum creatinine, sex, and age as parameters. The creatinine assay has traceable calibration to isotope dilution-mass spectrometry. Refer to KDIGO guidelines for clinical interpretation. In patients with unstable renal function, e.g. those with acute kidney injury, the eGFR may not accurately reflect actual GFR. Performed By: #### 2 4323-8 ####[facility] [id number] [place] [address] [place] Glucose [Mass/Vol] 93 mg/dL Normal 74-99 [facility] Comment on above: Order Comment: Noah schmidt Type: BLOOD SPECIMENOrdering Facility: [facility] Address: [address] [address] Result Comment: The [place] [employer] (ADA) provides guidance for cutoff values for fasting glucose and random glucose. The ADA defines fasting as no caloric intake for at least 8 hours. Fasting plasma glucose results between 100 to 125 mg/dL indicate increased risk for diabetes (prediabetes).Fasting plasma glucose results greater than or equal to 126 mg/dL meet the criteria for diagnosis of diabetes. In the absence of unequivocal hyperglycemia, results should be confirmed by repeat testing. In a patient with classic symptoms of hyperglycemia or hyperglycemic crisis, random plasma glucose results greater than or equal to 200 mg/dL meet the criteria for diagnosis of diabetes.Reference: Standards of Medical Care in Diabetes 2016, [place] [employer]. Diabetes Care. 2016.39(Suppl 1). Performed By: #### 2 4323-8 ####[facility] [id number] [place] [address] [place] Potassium [Moles/Vol] 4.1 mmol/L Normal 3.7-5.1 [facility] Comment on above: Order Comment: Noah schmidt Type: BLOOD SPECIMENOrdering Facility: [facility] Address: [address] [id number] Performed By: #### 2 4323-8 ####[facility] [id number] [place] [id number] [place] Protein [Mass/Vol] 7.2 g/dL Normal 6.3-8.0 [facility] Comment on above: Order Comment: Noah schmidt Type: BLOOD SPECIMENOrdering Facility: [facility] Address: [address] [address] Performed By: #### 2 4323-8 ####[facility] [id number] [place] [address] [place] Sodium [Moles/Vol] 140 mmol/L Normal 136-144 [facility] Comment on above: Order Comment: Angiei brayan Type: BLOOD SPECIMENOrdering Facility: [facility] Address: [address] [place] [address] Performed By: #### 2 4323-8 ####[facility] [id number] [place] [address] [place] Urea nitrogen [Mass/Vol] 16 mg/dL Normal 9-24 [facility] Comment on above: Order Comment: Angiei men Type: BLOOD SPECIMENOrdering Facility: [facility] Address: [address] [place] [address] Performed By: #### 2 4323-8 ####[facility] [id number] [place] [address] [place] PT panel Coag (PPP)on 2022 INR Coag (PPP) [Relative time] 1.7 {INR} High 0.9-1.3 [facility] Comment on above: Order Comment: Angiei men Type: BLOOD SPECIMENOrdering Facility: [facility] Address: [address] [place] [address] Result Comment: Zofia min K Antagonist (VKA) Therapeutic Range: INR 2 to 3 (Target INR of 2.5)Note: For patients treated with VKA drugs, such as warfarin, the [place] [employer] 2012 Guideline recommends a therapeutic INR range of 2 to 3 (target INR of 2.5). This recommendation includes high-risk patients with antiphospholipid syndrome with previous arterial or venous thromboembolism, current-generation mechanical or bioprosthetic aortic heart valve replacement.Note: Patients with mechanical aortic valve replacement and additional risk factors for thromboembolic events (atrial fibrillation, previous thromboembolism, LV dysfunction, hypercoagulable conditions) or an older generation mechanical AVR (i.e., ball in-Cage) or any mechanical MVR should have a INR therapeutic range of 2.5 to 3.5 (target INR of 3).Suzanne GH, et al. Chest 2012, 141:7S-47SNishsuzi RA, et al. [facility] 2017, 70: 252-289 Performed By: #### 3 4528-0 ####[facility] [id number] [place] [address] [place] PT Coag (PPP) [Time] 17.1 s High 9.7-13.0 [facility] Comment on above: Order Comment: Noah schmidt Type: BLOOD SPECIMENOrdering Facility: [facility] Address: [address] [place] [address] Performed By: #### 3 4528-0 ####[facility] [id number] [address] STATES OF [facility] INR Coag (PPP) [Relative time] 1.7 {INR} High 0.9-1.3 [facility] Comment on above: Order Comment: Noah schmidt Type: BLOOD SPECIMENOrdering Facility: [facility] Address: [address] [place] [address] Result Comment: Zofia min K Antagonist (VKA) Therapeutic Range: INR 2 to 3 (Target INR of 2.5)Note: For patients treated with VKA drugs, such as warfarin, the [place] [employer] 2012 Guideline recommends a therapeutic INR range of 2 to 3 (target INR of 2.5). This recommendation includes high-risk patients with antiphospholipid syndrome with previous arterial or venous thromboembolism, current-generation mechanical or bioprosthetic aortic heart valve replacement.Note: Patients with mechanical aortic valve replacement and additional risk factors for thromboembolic events (atrial fibrillation, previous thromboembolism, LV dysfunction, hypercoagulable conditions) or an older generation mechanical AVR (i.e., ball in-Cage) or any mechanical MVR should have a INR therapeutic range of 2.5 to 3.5 (target INR of 3).Yohanatt GH, et al. Chest 2012, 141:7S-47SNishimura RA, et al. [facility] 2017, 70: 252-289 Performed By: #### 3 4528-0, 88130-7 ####[facility] [id number] [place] [address] [place] PT Coag (PPP) [Time] 16.7 s High 9.7-13.0 [facility] Comment on above: Order Comment: Speci men Type: BLOOD SPECIMENOrdering Facility: [facility] Address: [address] [place] [address] Performed By: #### 3 4528-0, 08608-7 ####[facility] [id number] [address] [place] aPTT PPPon 08-30-2022 aPTT Coag (PPP) [Time] 33.8 s High 23.0-32.4 [facility] Comment on above: Order Comment: Speci men Type: BLOOD SPECIMENOrdering Facility: [facility] Address: [address] [place] [address] Performed By: #### 3 4528-0, 17771-7 ####[facility] [id number] [address] [place] CASE MANAGEMon 08-29-2022 CASE MANAGEM Normal [facility] CBC panel Auto (Bld)on 08-29 Erythrocyte distribution width (RBC) [Ratio] 12.8 % Normal 11.5-15.0 [facility] Comment on above: Order Comment: Speci men Type: BLOOD SPECIMENOrdering Facility: [facility] Address: [address] [place] [address] Performed By: #### 5 8410-2 ####[facility] [id number] [place] Hematocrit (Bld) [Volume fraction] 36.3 % Low 39.0-51.0 [facility] Comment on above: Order Comment: Speci men Type: BLOOD SPECIMENOrdering Facility: [facility] Address: [address] [place] [address] Performed By: #### 5 8410-2 ####[facility] [id number] [place] [address] [place] Hemoglobin (Bld) [Mass/Vol] 12.2 g/dL Low 13.0-17.0 [facility] Comment on above: Order Comment: Speci men Type: BLOOD SPECIMENOrdering Facility: [facility] Address: [address] [place] [address] Performed By: #### 5 8410-2 ####[facility] [id number] [address] STATES OF [facility] MCH (RBC) [Entitic mass] 28.0 pg Normal 26.0-34.0 [facility] Comment on above: Order Comment: Speci men Type: BLOOD SPECIMENOrdering Facility: [facility] Address: [address] [place] [address] Performed By: #### 5 8410-2 ####[facility] [id number] [address] [place] MCHC (RBC) [Mass/Vol] 33.6 g/dL Normal 30.5-36.0 [facility] Comment on above: Order Comment: Speci men Type: BLOOD SPECIMENOrdering Facility: [facility] Address: [address] [place] [phone] Performed By: #### 5 8410-2 ####[facility] [id number] [address] [place] MCV (RBC) [Entitic vol] 83.4 fL Normal 80.0-100.0 [facility] Comment on above: Order Comment: Speci men Type: BLOOD SPECIMENOrdering Facility: [facility] Address: [address] Performed By: #### 5 8410-2 ####[facility] [id number] [place] [address] [place] Nucleated RBC (Bld) [#/Vol] 10*3/uL Normal <0.01 [facility] Comment on above: Order Comment: Speci men Type: BLOOD SPECIMENOrdering Facility: [facility] Address: [address] Performed By: #### 5 8410-2 ####[facility] [id number] [place] [address] [place] Platelet mean volume (Bld) [Entitic vol] 9.4 fL Normal 9.0-12.7 [facility] Comment on above: Order Comment: Speci men Type: BLOOD SPECIMENOrdering Facility: [facility] Address: [address] Performed By: #### 5 8410-2 ####[facility] [id number] [place] [address] [place] Platelets (Bld) [#/Vol] 269 10*3/uL Normal 150-400 [facility] Comment on above: Order Comment: Speci men Type: BLOOD SPECIMENOrdering Facility: [facility] Address: [address] Performed By: #### 5 8410-2 ####[facility] [id number] [place] [address] [place] RBC (Bld) [#/Vol] 4.35 10*6/uL Normal 4.20-6.00 [facility] Comment on above: Order Comment: Speci men Type: BLOOD SPECIMENOrdering Facility: [facility] Address: [address] [place] [phone] Performed By: #### 5 8410-2 ####[facility] [id number] [place] [address] [place] WBC (Bld) [#/Vol] 7.70 10*3/uL Normal 3.70-11.00 [facility] Comment on above: Order Comment: Speci men Type: BLOOD SPECIMENOrdering Facility: [facility] Address: [address] [place] [address] Performed By: #### 5 8410-2 ####[facility] [id number] [place] [address] [place] Comprehensive metabolic 2000 panelon 08-29-2022 Albumin [Mass/Vol] 3.8 g/dL Low 3.9-4.9 [facility] Comment on above: Order Comment: Speci men Type: BLOOD SPECIMENOrdering Facility: [facility] Address: [address] [place] [phone] Performed By: #### 2 4323-8 ####[facility] [id number] [place] [address] [place] ALP [Catalytic activity/Vol] 57 U/L Normal 38-113 [facility] Comment on above: Order Comment: Speci men Type: BLOOD SPECIMENOrdering Facility: [facility] Address: [address] [place] [phone] Performed By: #### 2 4323-8 ####[facility] [id number] [place] [address] [place] ALT [Catalytic activity/Vol] 17 U/L Normal 10-54 [facility] Comment on above: Order Comment: Speci men Type: BLOOD SPECIMENOrdering Facility: [facility] Address: [address] Performed By: #### 2 4323-8 ####[facility] [id number] [place] [address] [place] Anion gap [Moles/Vol] 10 mmol/L Normal 9-18 [facility] Comment on above: Order Comment: Speci men Type: BLOOD SPECIMENOrdering Facility: [facility] Address: [address] [place] [address] Performed By: #### 2 4323-8 ####[facility] [id number] [place] [address] [place] AST [Catalytic activity/Vol] 14 U/L Normal 14-40 [facility] Comment on above: Order Comment: Speci men Type: BLOOD SPECIMENOrdering Facility: [facility] Address: [address] [place] [address] Performed By: #### 2 4323-8 ####[facility] [id number] [place] [address] [place] Bilirubin [Mass/Vol] 0.6 mg/dL Normal 0.2-1.3 [facility] Comment on above: Order Comment: Speci men Type: BLOOD SPECIMENOrdering Facility: [facility] Address: [address] [place] [phone] Performed By: #### 2 4323-8 ####[facility] [id number] [place] [address] [place] Calcium [Mass/Vol] 9.0 mg/dL Normal 8.5-10.2 [facility] Comment on above: Order Comment: Speci men Type: BLOOD SPECIMENOrdering Facility: [facility] Address: [address] [place] [phone] Performed By: #### 2 4323-8 ####[facility] [id number] [place] [address] [place] Chloride [Moles/Vol] 104 mmol/L Normal 97-105 [facility] Comment on above: Order Comment: Speci men Type: BLOOD SPECIMENOrdering Facility: [facility] Address: [address] [address] Performed By: #### 2 4323-8 ####[facility] [id number] [place] [address] [place] CO2 [Moles/Vol] 24 mmol/L Normal 22-30 [facility] Comment on above: Order Comment: Speci men Type: BLOOD SPECIMENOrdering Facility: [facility] Address: [address] [address] Performed By: #### 2 4323-8 ####[facility] [id number] [place] [address] [place] Creatinine [Mass/Vol] 0.91 mg/dL Normal 0.73-1.22 [facility] Comment on above: Order Comment: Speci men Type: BLOOD SPECIMENOrdering Facility: [facility] Address: [address] [place] [address] Performed By: #### 2 4323-8 ####[facility] [id number] [place] [address] [place] ESTIMATED GLOMERULAR FILTRATION RATE 105 mL/min/1.73m??? Normal >=60 [facility] Comment on above: Order Comment: Speci men Type: BLOOD SPECIMENOrdering Facility: [facility] Address: [address] [place] [address] Result Comment: Lucina mated Glomerular Filtration Rate (eGFR) is calculated using the 2020 CKD-EPI creatinine equation. This equation utilizes serum creatinine, sex, and age as parameters. The creatinine assay has traceable calibration to isotope dilution-mass spectrometry. Refer to KDIGO guidelines for clinical interpretation. In patients with unstable renal function, e.g. those with acute kidney injury, the eGFR may not accurately reflect actual GFR. Performed By: #### 2 4323-8 ####[facility] [id number] [place] [address] [place] Glucose [Mass/Vol] 102 mg/dL High 74-99 [facility] Comment on above: Order Comment: Speci men Type: BLOOD SPECIMENOrdering Facility: [facility] Address: [address] [place] [address] Result Comment: The [place] [employer] (ADA) provides guidance for cutoff values for fasting glucose and random glucose. The ADA defines fasting as no caloric intake for at least 8 hours. Fasting plasma glucose results between 100 to 125 mg/dL indicate increased risk for diabetes (prediabetes).Fasting plasma glucose results greater than or equal to 126 mg/dL meet the criteria for diagnosis of diabetes. In the absence of unequivocal hyperglycemia, results should be confirmed by repeat testing. In a patient with classic symptoms of hyperglycemia or hyperglycemic crisis, random plasma glucose results greater than or equal to 200 mg/dL meet the criteria for diagnosis of diabetes.Reference: Standards of Medical Care in Diabetes 2016, [place] [employer]. Diabetes Care. 2016.39(Suppl 1). Performed By: #### 2 4323-8 ####[facility] [id number] [place] [address] [place] Potassium [Moles/Vol] 4.4 mmol/L Normal 3.7-5.1 [facility] Comment on above: Order Comment: Speci men Type: BLOOD SPECIMENOrdering Facility: [facility] Address: [address] [place] [address] Performed By: #### 2 4323-8 ####[facility] [id number] [place] [address] [place] Protein [Mass/Vol] 6.7 g/dL Normal 6.3-8.0 [facility] Comment on above: Order Comment: Speci men Type: BLOOD SPECIMENOrdering Facility: [facility] Address: [address] [place] [address] Performed By: #### 2 4323-8 ####[facility] [id number] [place] [address] [place] Sodium [Moles/Vol] 138 mmol/L Normal 136-144 [facility] Comment on above: Order Comment: Specmarcus schmidt Type: BLOOD SPECIMENOrdering Facility: [facility] Address: [address] [place] [address] Performed By: #### 2 4323-8 ####[facility] [id number] [address] [place] Urea nitrogen [Mass/Vol] 19 mg/dL Normal 9-24 [facility] Comment on above: Order Comment: Speci men Type: BLOOD SPECIMENOrdering Facility: [facility] Address: [address] [place] [address] Performed By: #### 2 4323-8 ####[facility] [id number] [address] [place] ECG COMPLETEon 08-29-2022 ECG COMPLETE Normal [facility] PT panel Coag (PPP)on 2022 INR Coag (PPP) [Relative time] 1.5 {INR} High 0.9-1.3 [facility] Comment on above: Order Comment: Angiemarcus schmidt Type: BLOOD SPECIMENOrdering Facility: [facility] Address: [address] [place] [address] Result Comment: Zofia min K Antagonist (VKA) Therapeutic Range: INR 2 to 3 (Target INR of 2.5)Note: For patients treated with VKA drugs, such as warfarin, the [place] [employer] 2012 Guideline recommends a therapeutic INR range of 2 to 3 (target INR of 2.5). This recommendation includes high-risk patients with antiphospholipid syndrome with previous arterial or venous thromboembolism, current-generation mechanical or bioprosthetic aortic heart valve replacement.Note: Patients with mechanical aortic valve replacement and additional risk factors for thromboembolic events (atrial fibrillation, previous thromboembolism, LV dysfunction, hypercoagulable conditions) or an older generation mechanical AVR (i.e., ball in-Cage) or any mechanical MVR should have a INR therapeutic range of 2.5 to 3.5 (target INR of 3).Suzanne GH, et al. Chest 2012, 141:7S-47SNishsuzi RA, et al. J[facility] 2017, 70: 252-289 Performed By: #### 1 4979-9, 49427-4 ####[facility] [id number] [place] [address] [place] PT Coag (PPP) [Time] 15.6 s High 9.7-13.0 [facility] Comment on above: Order Comment: Speci men Type: BLOOD SPECIMENOrdering Facility: [facility] Address: [address] [place] [address] Performed By: #### 1 4979-9, 98061-1 ####[facility] [id number] [place] [address] [place] aPTT PPPon 08-29-2022 aPTT Coag (PPP) [Time] 34.5 s High 23.0-32.4 [facility] Comment on above: Order Comment: Speci men Type: BLOOD SPECIMENOrdering Facility: [facility] Address: [address] [place] [address] Performed By: #### 1 4979-9, 31161-6 ####[facility] [id number] [address] [place] OF [facility] CBC panel Auto (Bld)on 08-28 Erythrocyte distribution width (RBC) [Ratio] 12.8 % Normal 11.5-15.0 [facility] Comment on above: Order Comment: Speci men Type: BLOOD SPECIMENOrdering Facility: [facility] Address: [address] [place] [address] Performed By: #### 5 8410-2 ####[facility] [id number] [address] STATES OF [facility] Hematocrit (Bld) [Volume fraction] 38.6 % Low 39.0-51.0 [facility] Comment on above: Order Comment: Speci men Type: BLOOD SPECIMENOrdering Facility: [facility] Address: [address] [place] [address] Performed By: #### 5 8410-2 ####[facility] [id number] [place] [address] [place] Hemoglobin (Bld) [Mass/Vol] 13.4 g/dL Normal 13.0-17.0 [facility] Comment on above: Order Comment: Speci men Type: BLOOD SPECIMENOrdering Facility: [facility] Address: [address] [address] Performed By: #### 5 8410-2 ####[facility] [id number] [place] [address] [place] MCH (RBC) [Entitic mass] 28.9 pg Normal 26.0-34.0 [facility] Comment on above: Order Comment: Speci men Type: BLOOD SPECIMENOrdering Facility: [facility] Address: [address] Performed By: #### 5 8410-2 ####[facility] [id number] [address] [place] MCHC (RBC) [Mass/Vol] 34.7 g/dL Normal 30.5-36.0 [facility] Comment on above: Order Comment: Speci men Type: BLOOD SPECIMENOrdering Facility: [facility] Address: [address] Performed By: #### 5 8410-2 ####[facility] [id number] [place] [address] [place] MCV (RBC) [Entitic vol] 83.2 fL Normal 80.0-100.0 [facility] Comment on above: Order Comment: Speci men Type: BLOOD SPECIMENOrdering Facility: [facility] Address: [address] [place] [phone] Performed By: #### 5 8410-2 ####[facility] [id number] [place] [address] [place] Nucleated RBC (Bld) [#/Vol] 10*3/uL Normal <0.01 [facility] Comment on above: Order Comment: Speci men Type: BLOOD SPECIMENOrdering Facility: [facility] Address: [address] [place] [address] Performed By: #### 5 8410-2 ####[facility] [id number] [place] [address] [place] Platelet mean volume (Bld) [Entitic vol] 9.2 fL Normal 9.0-12.7 [facility] Comment on above: Order Comment: Speci men Type: BLOOD SPECIMENOrdering Facility: [facility] Address: [address] [place] [address] Performed By: #### 5 8410-2 ####[facility] [id number] [place] [address] [place] Platelets (Bld) [#/Vol] 259 10*3/uL Normal 150-400 [facility] Comment on above: Order Comment: Speci men Type: BLOOD SPECIMENOrdering Facility: [facility] Address: [address] [place] [address] Performed By: #### 5 8410-2 ####[facility] [id number] [place] [address] [place] RBC (Bld) [#/Vol] 4.64 10*6/uL Normal 4.20-6.00 [facility] Comment on above: Order Comment: Speci men Type: BLOOD SPECIMENOrdering Facility: [facility] Address: [address] [place] [phone] Performed By: #### 5 8410-2 ####[facility] [id number] [place] [address] [place] WBC (Bld) [#/Vol] 6.55 10*3/uL Normal 3.70-11.00 [facility] Comment on above: Order Comment: Speci men Type: BLOOD SPECIMENOrdering Facility: [facility] Address: [address] [place] [address] Performed By: #### 5 8410-2 ####[facility] [id number] [place] [address] [place] [facility] Comprehensive metabolic 2000 panelon 08-28-2022 Albumin [Mass/Vol] 4.4 g/dL Normal 3.9-4.9 [facility] Comment on above: Order Comment: Speci men Type: BLOOD SPECIMENOrdering Facility: [facility] Address: [address] [place] [address] Performed By: #### 1 9123-9, 65701-3 ####[facility] [id number] [place] [address] [place] ALP [Catalytic activity/Vol] 62 U/L Normal 38-113 [facility] Comment on above: Order Comment: Speci men Type: BLOOD SPECIMENOrdering Facility: [facility] Address: [address] [place] [phone] Performed By: #### 1 9123-9, 77196-5 ####[facility] [id number] [address] [place] [facility] ALT [Catalytic activity/Vol] 21 U/L Normal 10-54 [facility] Comment on above: Order Comment: Speci men Type: BLOOD SPECIMENOrdering Facility: [facility] Address: [address] [place] [phone] Performed By: #### 1 9123-9, 17459-7 ####[facility] [id number] [place] [address] [place] Anion gap [Moles/Vol] 10 mmol/L Normal 9-18 [facility] Comment on above: Order Comment: Speci men Type: BLOOD SPECIMENOrdering Facility: [facility] Address: [address] Performed By: #### 1 9123-9, 50998-8 ####[facility] [id number] [place] [address] [place] AST [Catalytic activity/Vol] 15 U/L Normal 14-40 [facility] Comment on above: Order Comment: Speci men Type: BLOOD SPECIMENOrdering Facility: [facility] Address: [address] [address] Performed By: #### 1 9123-9, ####[facility] [id number] [place] [address] [place] Bilirubin [Mass/Vol] 0.9 mg/dL Normal 0.2-1.3 [facility] Comment on above: Order Comment: Speci men Type: BLOOD SPECIMENOrdering Facility: [facility] Address: [address] [place] [address] Performed By: #### 1 9123-9, ####[facility] [id number] [place] [address] [place] Calcium [Mass/Vol] 9.2 mg/dL Normal 8.5-10.2 [facility] Comment on above: Order Comment: Speci men Type: BLOOD SPECIMENOrdering Facility: [facility] Address: [address] [place] [phone] Performed By: #### 1 9123-9, 64614-0 ####[facility] [id number] [place] [address] [place] Chloride [Moles/Vol] 103 mmol/L Normal 97-105 [facility] Comment on above: Order Comment: Speci men Type: BLOOD SPECIMENOrdering Facility: [facility] Address: [address] Performed By: #### 1 9123-03, ####[facility] [id number] [place] [address] [place] CO2 [Moles/Vol] 27 mmol/L Normal 22-30 [facility] Comment on above: Order Comment: Speci men Type: BLOOD SPECIMENOrdering Facility: [facility] Address: [address] [place] [address] Performed By: #### 1 9123-03, ####[facility] [id number] [place] [address] [place] Creatinine [Mass/Vol] 1.00 mg/dL Normal 0.73-1.22 [facility] Comment on above: Order Comment: Speci men Type: BLOOD SPECIMENOrdering Facility: [facility] Address: [address] [place] [address] Performed By: #### 1 9123-03, ####[facility] [id number] [place] [address] [place] ESTIMATED GLOMERULAR FILTRATION RATE 93 mL/min/1.73m??? Normal >=60 [facility] Comment on above: Order Comment: Speci men Type: BLOOD SPECIMENOrdering Facility: [facility] Address: [address] [place] [address] Result Comment: Lucina mated Glomerular Filtration Rate (eGFR) is calculated using the 2020 CKD-EPI creatinine equation. This equation utilizes serum creatinine, sex, and age as parameters. The creatinine assay has traceable calibration to isotope dilution-mass spectrometry. Refer to KDIGO guidelines for clinical interpretation. In patients with unstable renal function, e.g. those with acute kidney injury, the eGFR may not accurately reflect actual GFR. Performed By: #### 1 9123-03, ####[facility] [id number] [place] [address] [place] Glucose [Mass/Vol] 109 mg/dL High 74-99 [facility] Comment on above: Order Comment: Noah schmidt Type: BLOOD SPECIMENOrdering Facility: [facility] Address: [address] [id number] Result Comment: The [place] [employer] (ADA) provides guidance for cutoff values for fasting glucose and random glucose. The ADA defines fasting as no caloric intake for at least 8 hours. Fasting plasma glucose results between 100 to 125 mg/dL indicate increased risk for diabetes (prediabetes).Fasting plasma glucose results greater than or equal to 126 mg/dL meet the criteria for diagnosis of diabetes. In the absence of unequivocal hyperglycemia, results should be confirmed by repeat testing. In a patient with classic symptoms of hyperglycemia or hyperglycemic crisis, random plasma glucose results greater than or equal to 200 mg/dL meet the criteria for diagnosis of diabetes.Reference: Standards of Medical Care in Diabetes 2016, [place] [employer]. Diabetes Care. 2016.39(Suppl 1). Performed By: #### 1 9123-9, 62266-4 ####[facility] [id number] [place] [address] [place] Potassium [Moles/Vol] 4.1 mmol/L Normal 3.7-5.1 [facility] Comment on above: Order Comment: Noah schmidt Type: BLOOD SPECIMENOrdering Facility: [facility] Address: [address] [place], [place] [id number] Performed By: #### 1 9123-9, ####[facility] [id number] [place] [address] [place] Protein [Mass/Vol] 7.3 g/dL Normal 6.3-8.0 [facility] Comment on above: Order Comment: Noah schmidt Type: BLOOD SPECIMENOrdering Facility: [facility] Address: [address] [id number] Performed By: #### 1 9123-9, ####[facility] [id number] [place] [address] [place] Sodium [Moles/Vol] 140 mmol/L Normal 136-144 [facility] Comment on above: Order Comment: Speci men Type: BLOOD SPECIMENOrdering Facility: [facility] Address: [address] [place] [address] Performed By: #### 1 9123-9, ####[facility] [id number] [place] [address] [place] Urea nitrogen [Mass/Vol] 22 mg/dL Normal 9-24 [facility] Comment on above: Order Comment: Speci men Type: BLOOD SPECIMENOrdering Facility: [facility] Address: [address] [place] [address] Performed By: #### 1 9123-9, 03116-7 ####[facility] [id number] [place] [address] [place] ECG COMPLETEon 08-28-2022 ECG COMPLETE Normal [facility] Magnesium SerPl-mCncon 08-28 Magnesium [Mass/Vol] 2.2 mg/dL Normal 1.7-2.3 [facility] Comment on above: Order Comment: Speci men Type: BLOOD SPECIMENOrdering Facility: [facility] Address: [address] [place] [address] Performed By: #### 1 9123-9, ####[facility] [id number] [place] [address] [place] PT panel Coag (PPP)on 2022 INR Coag (PPP) [Relative time] 1.5 {INR} High 0.9-1.3 [facility] Comment on above: Order Comment: Speci men Type: BLOOD SPECIMENOrdering Facility: [facility] Address: [address] [place] [address] Result Comment: Zofia min K Antagonist (VKA) Therapeutic Range: INR 2 to 3 (Target INR of 2.5)Note: For patients treated with VKA drugs, such as warfarin, the [place] [employer] 2012 Guideline recommends a therapeutic INR range of 2 to 3 (target INR of 2.5). This recommendation includes high-risk patients with antiphospholipid syndrome with previous arterial or venous thromboembolism, current-generation mechanical or bioprosthetic aortic heart valve replacement.Note: Patients with mechanical aortic valve replacement and additional risk factors for thromboembolic events (atrial fibrillation, previous thromboembolism, LV dysfunction, hypercoagulable conditions) or an older generation mechanical AVR (i.e., ball in-Cage) or any mechanical MVR should have a INR therapeutic range of 2.5 to 3.5 (target INR of 3).Suzanne GH, et al. Chest 2012, 141:7S-47SNishsuzi RA, et al. [facility] 2017, 70: 252-289 Performed By: #### 3 4528-0, 63104-0 ####[facility] [id number] [place] [address] [place] PT Coag (PPP) [Time] 15.1 s High 9.7-13.0 [facility] Comment on above: Order Comment: Speci men Type: BLOOD SPECIMENOrdering Facility: [facility] Address: [address] [place] [address] Performed By: #### 3 4528-0, 99955-4 ####[facility] [id number] [address] [place] aPTT PPPon 08-28-2022 aPTT Coag (PPP) [Time] 32.7 s High 23.0-32.4 [facility] Comment on above: Order Comment: Speci men Type: BLOOD SPECIMENOrdering Facility: [facility] Address: [address] Performed By: #### 3 4528-0, 49975-1 ####[facility] [id number] [place] [address] [place] CBC panel Auto (Bld)on 08-27 Erythrocyte distribution width (RBC) [Ratio] 13.0 % Normal 11.5-15.0 [facility] Comment on above: Order Comment: Speci men Type: BLOOD SPECIMENOrdering Facility: [facility] Address: [address] [address] Performed By: #### 5 8410-2 ####[facility] [id number] [place] [address] [place] Hematocrit (Bld) [Volume fraction] 37.5 % Low 39.0-51.0 [facility] Comment on above: Order Comment: Speci men Type: BLOOD SPECIMENOrdering Facility: [facility] Address: [address] Performed By: #### 5 8410-2 ####[facility] [id number] [place] [address] [place] Hemoglobin (Bld) [Mass/Vol] 12.7 g/dL Low 13.0-17.0 [facility] Comment on above: Order Comment: Speci men Type: BLOOD SPECIMENOrdering Facility: [facility] Address: [address] Performed By: #### 5 8410-2 ####[facility] [id number] [address] [place] MCH (RBC) [Entitic mass] 28.7 pg Normal 26.0-34.0 [facility] Comment on above: Order Comment: Speci men Type: BLOOD SPECIMENOrdering Facility: [facility] Address: [address] Performed By: #### 5 8410-2 ####[facility] [id number] [place] [address] [place] MCHC (RBC) [Mass/Vol] 33.9 g/dL Normal 30.5-36.0 [facility] Comment on above: Order Comment: Speci men Type: BLOOD SPECIMENOrdering Facility: [facility] Address: [address] Performed By: #### 5 8410-2 ####[facility] [id number] [address] [place] MCV (RBC) [Entitic vol] 84.8 fL Normal 80.0-100.0 [facility] Comment on above: Order Comment: Speci men Type: BLOOD SPECIMENOrdering Facility: [facility] Address: [address] [place] [address] Performed By: #### 5 8410-2 ####[facility] [id number] [place] [address] [place] Nucleated RBC (Bld) [#/Vol] 10*3/uL Normal <0.01 [facility] Comment on above: Order Comment: Speci men Type: BLOOD SPECIMENOrdering Facility: [facility] Address: [address] [place] [phone] Performed By: #### 5 8410-2 ####[facility] [id number] [place] [address] [place] Platelet mean volume (Bld) [Entitic vol] 10.0 fL Normal 9.0-12.7 [facility] Comment on above: Order Comment: Speci men Type: BLOOD SPECIMENOrdering Facility: [facility] Address: [address] [place] [address] Performed By: #### 5 8410-2 ####[facility] [id number] [place] [address] [place] Platelets (Bld) [#/Vol] 253 10*3/uL Normal 150-400 [facility] Comment on above: Order Comment: Speci men Type: BLOOD SPECIMENOrdering Facility: [facility] Address: [address] [place] [address] Performed By: #### 5 8410-2 ####[facility] [id number] [address] [id number] [address] [place] RBC (Bld) [#/Vol] 4.42 10*6/uL Normal 4.20-6.00 [facility] Comment on above: Order Comment: Speci men Type: BLOOD SPECIMENOrdering Facility: [facility] Address: [address] [place] [address] Performed By: #### 5 8410-2 ####[facility] [id number] [place] [address] [place] WBC (Bld) [#/Vol] 8.63 10*3/uL Normal 3.70-11.00 [facility] Comment on above: Order Comment: Speci men Type: BLOOD SPECIMENOrdering Facility: [facility] Address: [address] [place] [address] Performed By: #### 5 8410-2 ####[facility] [id number] [place] [address] [place] CNDSon 08-27-2022 CNDS Normal [facility] Comprehensive metabolic 2000 panelon 08-27-2022 Albumin [Mass/Vol] 4.0 g/dL Normal 3.9-4.9 [facility] Comment on above: Order Comment: Speci men Type: BLOOD SPECIMENOrdering Facility: [facility] Address: [address] [place] [phone] Performed By: #### 1 9123-9, 02214-5 ####[facility] [id number] [place] [address] [place] ALP [Catalytic activity/Vol] 58 U/L Normal 38-113 [facility] Comment on above: Order Comment: Speci men Type: BLOOD SPECIMENOrdering Facility: [facility] Address: [address] [place] [phone] Performed By: #### 1 9123-9, 85998-1 ####[facility] [id number] [address] [id number] [address] [place] ALT [Catalytic activity/Vol] 18 U/L Normal 10-54 [facility] Comment on above: Order Comment: Speci men Type: BLOOD SPECIMENOrdering Facility: [facility] Address: [address] [place] [address] Performed By: #### 1 9123-9, 36785-8 ####[facility] [id number] [place] [address] [place] Anion gap [Moles/Vol] 11 mmol/L Normal 9-18 [facility] Comment on above: Order Comment: Speci men Type: BLOOD SPECIMENOrdering Facility: [facility] Address: [address] [place] [phone] Performed By: #### 1 9123-9, ####[facility] [id number] [address] [place] AST [Catalytic activity/Vol] 14 U/L Normal 14-40 [facility] Comment on above: Order Comment: Speci men Type: BLOOD SPECIMENOrdering Facility: [facility] Address: [address] [place] [phone] Performed By: #### 1 9123-9, 93091-7 ####[facility] [id number] [place] [address] [place] Bilirubin [Mass/Vol] 1.0 mg/dL Normal 0.2-1.3 [facility] Comment on above: Order Comment: Speci men Type: BLOOD SPECIMENOrdering Facility: [facility] Address: [address] [place] [phone] Performed By: #### 1 9123-9, 73612-8 ####[facility] [id number] [place] [address] [place] Calcium [Mass/Vol] 9.2 mg/dL Normal 8.5-10.2 [facility] Comment on above: Order Comment: Speci men Type: BLOOD SPECIMENOrdering Facility: [facility] Address: [address] Performed By: #### 1 9123-9, ####[facility] [id number] [place] [address] [place] Chloride [Moles/Vol] 103 mmol/L Normal 97-105 [facility] Comment on above: Order Comment: Speci men Type: BLOOD SPECIMENOrdering Facility: [facility] Address: [address] [address] Performed By: #### 1 9123-9, ####[facility] [id number] [place] [address] [place] CO2 [Moles/Vol] 25 mmol/L Normal 22-30 [facility] Comment on above: Order Comment: Speci men Type: BLOOD SPECIMENOrdering Facility: [facility] Address: [address] [place] [address] Performed By: #### 1 9123-9, 61045-8 ####[facility] [id number] [place] [address] [place] Creatinine [Mass/Vol] 1.04 mg/dL Normal 0.73-1.22 [facility] Comment on above: Order Comment: Speci men Type: BLOOD SPECIMENOrdering Facility: [facility] Address: [address] Performed By: #### 1 9123-9, 81270-7 ####[facility] [id number] [place] [address] [place] ESTIMATED GLOMERULAR FILTRATION RATE 89 mL/min/1.73m??? Normal >=60 [facility] Comment on above: Order Comment: Speci men Type: BLOOD SPECIMENOrdering Facility: [facility] Address: [address] [place] [phone] Result Comment: Lucina mated Glomerular Filtration Rate (eGFR) is calculated using the 2020 CKD-EPI creatinine equation. This equation utilizes serum creatinine, sex, and age as parameters. The creatinine assay has traceable calibration to isotope dilution-mass spectrometry. Refer to KDIGO guidelines for clinical interpretation. In patients with unstable renal function, e.g. those with acute kidney injury, the eGFR may not accurately reflect actual GFR. Performed By: #### 1 9123-9, 87311-5 ####[facility] [id number] [place] [address] [place] Glucose [Mass/Vol] 103 mg/dL High 74-99 [facility] Comment on above: Order Comment: Noah schmidt Type: BLOOD SPECIMENOrdering Facility: [facility] Address: [address] [place] [address] Result Comment: The [place] [employer] (ADA) provides guidance for cutoff values for fasting glucose and random glucose. The ADA defines fasting as no caloric intake for at least 8 hours. Fasting plasma glucose results between 100 to 125 mg/dL indicate increased risk for diabetes (prediabetes).Fasting plasma glucose results greater than or equal to 126 mg/dL meet the criteria for diagnosis of diabetes. In the absence of unequivocal hyperglycemia, results should be confirmed by repeat testing. In a patient with classic symptoms of hyperglycemia or hyperglycemic crisis, random plasma glucose results greater than or equal to 200 mg/dL meet the criteria for diagnosis of diabetes.Reference: Standards of Medical Care in Diabetes 2016, [place] [employer]. Diabetes Care. 2016.39(Suppl 1). Performed By: #### 1 9123-9, ####[facility] [id number] [place] [address] [place] Potassium [Moles/Vol] 4.2 mmol/L Normal 3.7-5.1 [facility] Comment on above: Order Comment: Noah schmidt Type: BLOOD SPECIMENOrdering Facility: [facility] Address: [address] [place] [address] Performed By: #### 1 9123-9, 04351-2 ####[facility] [id number] [place] [address] [place] Protein [Mass/Vol] 6.8 g/dL Normal 6.3-8.0 [facility] Comment on above: Order Comment: Speci men Type: BLOOD SPECIMENOrdering Facility: [facility] Address: [address] [place] [address] Performed By: #### 1 9123-9, 61775-6 ####[facility] [id number] [place] [address] [place] Sodium [Moles/Vol] 139 mmol/L Normal 136-144 [facility] Comment on above: Order Comment: Speci men Type: BLOOD SPECIMENOrdering Facility: [facility] Address: [address] [place] [address] Performed By: #### 1 9123-9, 71188-6 ####[facility] [id number] [place] [address] [place] Urea nitrogen [Mass/Vol] 20 mg/dL Normal 9-24 [facility] Comment on above: Order Comment: Speci men Type: BLOOD SPECIMENOrdering Facility: [facility] Address: [address] [place] [address] Performed By: #### 1 9123-9, 79043-6 ####[facility] [id number] [place] [address] [place] ECG COMPLETEon 08-27-2022 ECG COMPLETE Normal [facility] Magnesium SerPl-mCncon 08-27 Magnesium [Mass/Vol] 2.3 mg/dL Normal 1.7-2.3 [facility] Comment on above: Order Comment: Speci men Type: BLOOD SPECIMENOrdering Facility: [facility] Address: [address] [place] [address] Performed By: #### 1 9123-9, 38216-2 ####[facility] [id number] [place] [id number] [place] PT panel Coag (PPP)on 2022 INR Coag (PPP) [Relative time] 1.3 {INR} Normal 0.9-1.3 [facility] Comment on above: Order Comment: Noah schmidt Type: BLOOD SPECIMENOrdering Facility: [facility] Address: [address] [place] [address] Result Comment: Zofia min K Antagonist (VKA) Therapeutic Range: INR 2 to 3 (Target INR of 2.5)Note: For patients treated with VKA drugs, such as warfarin, the [place] [employer] 2012 Guideline recommends a therapeutic INR range of 2 to 3 (target INR of 2.5). This recommendation includes high-risk patients with antiphospholipid syndrome with previous arterial or venous thromboembolism, current-generation mechanical or bioprosthetic aortic heart valve replacement.Note: Patients with mechanical aortic valve replacement and additional risk factors for thromboembolic events (atrial fibrillation, previous thromboembolism, LV dysfunction, hypercoagulable conditions) or an older generation mechanical AVR (i.e., ball in-Cage) or any mechanical MVR should have a INR therapeutic range of 2.5 to 3.5 (target INR of 3).Yohanatt GH, et al. Chest 2012, 141:7S-47SNishimura RA, et al. [facility] 2017, 70: 252-289 Performed By: #### 3 4528-0, 90908-4 ####[facility] [id number] [place] [id number] [place] PT Coag (PPP) [Time] 13.4 s High 9.7-13.0 [facility] Comment on above: Order Comment: Speci men Type: BLOOD SPECIMENOrdering Facility: [facility] Address: [place] [id number] Performed By: #### 3 4528-0, 99595-9 ####[facility] [id number] [place] [address] [place] aPTT PPPon 02-04-2023 aPTT Coag (PPP) [Time] 30.8 s Normal 23.0-32.4 [facility] Comment on above: Order Comment: Speci men Type: BLOOD SPECIMENOrdering Facility: [facility] Address: [address] [place] [address] Performed By: #### 3 4528-0, 01053-0 ####[facility] [id number] [place] [address] [place] Basic metabolic 2000 panelon 08-26-2022 Anion gap [Moles/Vol] 10 mmol/L Normal 9-18 [facility] Comment on above: Order Comment: Speci men Type: BLOOD SPECIMENOrdering Facility: [facility] Address: [address] [place] [address] Performed By: #### 2 4321-2 ####[facility] [id number] [place] [address] [place] Calcium [Mass/Vol] 9.1 mg/dL Normal 8.5-10.2 [facility] Comment on above: Order Comment: Speci men Type: BLOOD SPECIMENOrdering Facility: [facility] Address: [address] [place] [phone] Performed By: #### 2 4321-2 ####[facility] [id number] [place] [address] [place] Chloride [Moles/Vol] 103 mmol/L Normal 97-105 [facility] Comment on above: Order Comment: Speci men Type: BLOOD SPECIMENOrdering Facility: [facility] Address: [address] [place] [phone] Performed By: #### 2 4321-2 ####[facility] [id number] [place] [address] [place] CO2 [Moles/Vol] 26 mmol/L Normal 22-30 [facility] Comment on above: Order Comment: Speci men Type: BLOOD SPECIMENOrdering Facility: [facility] Address: [address] [place] [address] Performed By: #### 2 4321-2 ####[facility] [id number] [address] STATES OF [facility] Creatinine [Mass/Vol] 0.95 mg/dL Normal 0.73-1.22 [facility] Comment on above: Order Comment: Speci men Type: BLOOD SPECIMENOrdering Facility: [facility] Address: [address] [place] [address] Performed By: #### 2 4321-2 ####[facility] [id number] [address] STATES OF [facility] ESTIMATED GLOMERULAR FILTRATION RATE 99 mL/min/1.73m??? Normal >=60 [facility] Comment on above: Order Comment: Speci men Type: BLOOD SPECIMENOrdering Facility: [facility] Address: [address] [place] [address] Result Comment: Lucina mated Glomerular Filtration Rate (eGFR) is calculated using the 2020 CKD-EPI creatinine equation. This equation utilizes serum creatinine, sex, and age as parameters. The creatinine assay has traceable calibration to isotope dilution-mass spectrometry. Refer to KDIGO guidelines for clinical interpretation. In patients with unstable renal function, e.g. those with acute kidney injury, the eGFR may not accurately reflect actual GFR. Performed By: #### 2 4321-2 ####[facility] [id number] [address] [place] Glucose [Mass/Vol] 94 mg/dL Normal 74-99 [facility] Comment on above: Order Comment: Speci men Type: BLOOD SPECIMENOrdering Facility: [facility] Address: [address] [place] [address] Result Comment: The [place] [employer] (ADA) provides guidance for cutoff values for fasting glucose and random glucose. The ADA defines fasting as no caloric intake for at least 8 hours. Fasting plasma glucose results between 100 to 125 mg/dL indicate increased risk for diabetes (prediabetes).Fasting plasma glucose results greater than or equal to 126 mg/dL meet the criteria for diagnosis of diabetes. In the absence of unequivocal hyperglycemia, results should be confirmed by repeat testing. In a patient with classic symptoms of hyperglycemia or hyperglycemic crisis, random plasma glucose results greater than or equal to 200 mg/dL meet the criteria for diagnosis of diabetes.Reference: Standards of Medical Care in Diabetes 2016, [place] [employer]. Diabetes Care. 2016.39(Suppl 1). Performed By: #### 2 4321-2 ####[facility] [id number] [place] [address] [place] Potassium [Moles/Vol] 3.9 mmol/L Normal 3.7-5.1 [facility] Comment on above: Order Comment: Speci men Type: BLOOD SPECIMENOrdering Facility: [facility] Address: [address] [place] [address] Performed By: #### 2 4321-2 ####[facility] [id number] [place] [address] [place] Sodium [Moles/Vol] 139 mmol/L Normal 136-144 [facility] Comment on above: Order Comment: Angiei brayan Type: BLOOD SPECIMENOrdering Facility: [facility] Address: [address] [place] [address] Performed By: #### 2 4321-2 ####[facility] [id number] [place] [address] [place] Urea nitrogen [Mass/Vol] 16 mg/dL Normal 9-24 [facility] Comment on above: Order Comment: Speci men Type: BLOOD SPECIMENOrdering Facility: [facility] Address: [address] [place] [address] Performed By: #### 2 4321-2 ####[facility] [id number] [place] [address] [place] CASE MGT INIT ASSESon 2022 CASE MGT INIT ASSES Normal [facility] CBC W Auto Differential pane l (Bld)on 08-26-2022 Basophils (Bld) [#/Vol] 0.05 10*3/uL Normal <0.11 [facility] Comment on above: Order Comment: Speci men Type: BLOOD SPECIMENOrdering Facility: [facility] Address: [address] [place] [address] Performed By: #### 5 7021-8 ####[facility] [id number] [place] [address] [place] Basophils/100 WBC (Bld) 0.5 % Normal [facility] Comment on above: Order Comment: Speci men Type: BLOOD SPECIMENOrdering Facility: [facility] Address: [address] [place] [address] Performed By: #### 5 7021-8 ####[facility] [id number] [place] [address] [place] Differential cell count method Nom (Bld) Auto Normal [facility] Comment on above: Order Comment: Speci men Type: BLOOD SPECIMENOrdering Facility: [facility] Address: [address] [place] [address] Performed By: #### 5 7021-8 ####[facility] [id number] [place] [address] [place] Eosinophils (Bld) [#/Vol] 0.17 10*3/uL Normal <0.46 [facility] Comment on above: Order Comment: Speci men Type: BLOOD SPECIMENOrdering Facility: [facility] Address: [address] [place] [address] Performed By: #### 5 7021-8 ####[facility] [id number] [place] [address] [place] Eosinophils/100 WBC (Bld) 1.8 % Normal [facility] Comment on above: Order Comment: Speci men Type: BLOOD SPECIMENOrdering Facility: [facility] Address: [address] Performed By: #### 5 7021-8 ####[facility] [id number] [place] [address] [place] Erythrocyte distribution width (RBC) [Ratio] 13.0 % Normal 11.5-15.0 [facility] Comment on above: Order Comment: Speci men Type: BLOOD SPECIMENOrdering Facility: [facility] Address: [address] Performed By: #### 5 7021-8 ####[facility] [id number] [place] [address] [place] Hematocrit (Bld) [Volume fraction] 37.2 % Low 39.0-51.0 [facility] Comment on above: Order Comment: Speci men Type: BLOOD SPECIMENOrdering Facility: [facility] Address: [address] [place] [phone] Performed By: #### 5 7021-8 ####[facility] [id number] [place] [address] [place] Hemoglobin (Bld) [Mass/Vol] 12.3 g/dL Low 13.0-17.0 [facility] Comment on above: Order Comment: Speci men Type: BLOOD SPECIMENOrdering Facility: [facility] Address: [address] Performed By: #### 5 7021-8 ####[facility] [id number] [place] [address] [place] Immature granulocytes (Bld) [#/Vol] 0.05 10*3/uL Normal <0.10 [facility] Comment on above: Order Comment: Speci men Type: BLOOD SPECIMENOrdering Facility: [facility] Address: [address] [place] [phone] Performed By: #### 5 7021-8 ####[facility] [id number] [place] [address] [place] Immature granulocytes/100 WBC (Bld) 0.5 % Normal [facility] Comment on above: Order Comment: Speci men Type: BLOOD SPECIMENOrdering Facility: [facility] Address: [address] [place] [address] Performed By: #### 5 7021-8 ####[facility] [id number] [place] [address] [place] Lymphocytes (Bld) [#/Vol] 1.89 10*3/uL Normal 1.00-4.00 [facility] Comment on above: Order Comment: Speci men Type: BLOOD SPECIMENOrdering Facility: [facility] Address: [address] [place] [address] Performed By: #### 5 7021-8 ####[facility] [id number] [place] [address] [place] Lymphocytes/100 WBC (Bld) 19.5 % Normal [facility] Comment on above: Order Comment: Speci men Type: BLOOD SPECIMENOrdering Facility: [facility] Address: [address] [place] [address] Performed By: #### 5 7021-8 ####[facility] [id number] [place] [address] [place] MCH (RBC) [Entitic mass] 28.1 pg Normal 26.0-34.0 [facility] Comment on above: Order Comment: Speci men Type: BLOOD SPECIMENOrdering Facility: [facility] Address: [address] [place] [phone] Performed By: #### 5 7021-8 ####[facility] [id number] [place] [address] [place] MCHC (RBC) [Mass/Vol] 33.1 g/dL Normal 30.5-36.0 [facility] Comment on above: Order Comment: Speci men Type: BLOOD SPECIMENOrdering Facility: [facility] Address: [address] [place] [phone] Performed By: #### 5 7021-8 ####[facility] [id number] [place] [address] [place] MCV (RBC) [Entitic vol] 84.9 fL Normal 80.0-100.0 [facility] Comment on above: Order Comment: Speci men Type: BLOOD SPECIMENOrdering Facility: [facility] Address: [address] [place] [phone] Performed By: #### 5 7021-8 ####[facility] [id number] [place] [address] [place] Monocytes (Bld) [#/Vol] 0.81 10*3/uL Normal <0.87 [facility] Comment on above: Order Comment: Speci men Type: BLOOD SPECIMENOrdering Facility: [facility] Address: [address] [place] [phone] Performed By: #### 5 7021-8 ####[facility] [id number] [place] [address] [place] Monocytes/100 WBC (Bld) 8.4 % Normal [facility] Comment on above: Order Comment: Speci men Type: BLOOD SPECIMENOrdering Facility: [facility] Address: [address] [place] [phone] Performed By: #### 5 7021-8 ####[facility] [id number] [place] [address] [place] Neutrophils (Bld) [#/Vol] 6.71 10*3/uL Normal 1.45-7.50 [facility] Comment on above: Order Comment: Speci men Type: BLOOD SPECIMENOrdering Facility: [facility] Address: [address] [place] [phone] Performed By: #### 5 7021-8 ####[facility] [id number] [place] [address] [place] Neutrophils/100 WBC (Bld) 69.3 % Normal [facility] Comment on above: Order Comment: Speci men Type: BLOOD SPECIMENOrdering Facility: [facility] Address: [address] [place] [phone] Performed By: #### 5 7021-8 ####[facility] [id number] [place] [address] [place] Nucleated RBC (Bld) [#/Vol] 10*3/uL Normal <0.01 [facility] Comment on above: Order Comment: Speci men Type: BLOOD SPECIMENOrdering Facility: [facility] Address: [address] [place] [phone] Performed By: #### 5 7021-8 ####[facility] [id number] [place] [address] [place] Nucleated RBC/100 WBC (Bld) [Ratio] 0.0 /100 WBC Normal [facility] Comment on above: Order Comment: Speci men Type: BLOOD SPECIMENOrdering Facility: [facility] Address: [address] [place] [phone] Performed By: #### 5 7021-8 ####[facility] [id number] [place] [address] [place] Platelet mean volume (Bld) [Entitic vol] 9.6 fL Normal 9.0-12.7 [facility] Comment on above: Order Comment: Speci men Type: BLOOD SPECIMENOrdering Facility: [facility] Address: [address] [place] [phone] Performed By: #### 5 7021-8 ####[facility] [id number] [place] [address] [place] Platelets (Bld) [#/Vol] 240 10*3/uL Normal 150-400 [facility] Comment on above: Order Comment: Speci men Type: BLOOD SPECIMENOrdering Facility: [facility] Address: [address] [place] [address] Performed By: #### 5 7021-8 ####[facility] [id number] [place] [address] [place] RBC (Bld) [#/Vol] 4.38 10*6/uL Normal 4.20-6.00 [facility] Comment on above: Order Comment: Speci men Type: BLOOD SPECIMENOrdering Facility: [facility] Address: [address] [place] [address] Performed By: #### 5 7021-8 ####[facility] [id number] [address] [place] WBC (Bld) [#/Vol] 9.68 10*3/uL Normal 3.70-11.00 [facility] Comment on above: Order Comment: Speci men Type: BLOOD SPECIMENOrdering Facility: [facility] Address: [address] [place] [phone] Performed By: #### 5 7021-8 ####[facility] [id number] [place] [address] [place] CBC panel Auto (Bld)on 08-26 Erythrocyte distribution width (RBC) [Ratio] 13.1 % Normal 11.5-15.0 [facility] Comment on above: Order Comment: Speci men Type: BLOOD SPECIMENOrdering Facility: [facility] Address: [address] [place] [phone] Performed By: #### 5 8410-2 ####[facility] [id number] [place] [address] [place] Hematocrit (Bld) [Volume fraction] 37.3 % Low 39.0-51.0 [facility] Comment on above: Order Comment: Speci men Type: BLOOD SPECIMENOrdering Facility: [facility] Address: [address] [place] [address] Performed By: #### 5 8410-2 ####[facility] [id number] [place] [address] [place] Hemoglobin (Bld) [Mass/Vol] 12.3 g/dL Low 13.0-17.0 [facility] Comment on above: Order Comment: Speci men Type: BLOOD SPECIMENOrdering Facility: [facility] Address: [address] [place] [address] Performed By: #### 5 8410-2 ####[facility] [id number] [address] [place] MCH (RBC) [Entitic mass] 28.0 pg Normal 26.0-34.0 [facility] Comment on above: Order Comment: Speci men Type: BLOOD SPECIMENOrdering Facility: [facility] Address: [address] [place] [address] Performed By: #### 5 8410-2 ####[facility] [id number] [address] [place] MCHC (RBC) [Mass/Vol] 33.0 g/dL Normal 30.5-36.0 [facility] Comment on above: Order Comment: Speci men Type: BLOOD SPECIMENOrdering Facility: [facility] Address: [address] [place] [address] Performed By: #### 5 8410-2 ####[facility] [id number] [address] [place] MCV (RBC) [Entitic vol] 85.0 fL Normal 80.0-100.0 [facility] Comment on above: Order Comment: Speci men Type: BLOOD SPECIMENOrdering Facility: [facility] Address: [address] [place] [address] Performed By: #### 5 8410-2 ####[facility] [id number] [place] [address] [place] Nucleated RBC (Bld) [#/Vol] 10*3/uL Normal <0.01 [facility] Comment on above: Order Comment: Speci men Type: BLOOD SPECIMENOrdering Facility: [facility] Address: [address] Performed By: #### 5 8410-2 ####[facility] [id number] [place] [address] [place] Platelet mean volume (Bld) [Entitic vol] 10.1 fL Normal 9.0-12.7 [facility] Comment on above: Order Comment: Speci men Type: BLOOD SPECIMENOrdering Facility: [facility] Address: [address] Performed By: #### 5 8410-2 ####[facility] [id number] [place] [address] [place] Platelets (Bld) [#/Vol] 244 10*3/uL Normal 150-400 [facility] Comment on above: Order Comment: Speci men Type: BLOOD SPECIMENOrdering Facility: [facility] Address: [address] [place] [address] Performed By: #### 5 8410-2 ####[facility] [id number] [place] [address] [place] RBC (Bld) [#/Vol] 4.39 10*6/uL Normal 4.20-6.00 [facility] Comment on above: Order Comment: Speci men Type: BLOOD SPECIMENOrdering Facility: [facility] Address: [address] Performed By: #### 5 8410-2 ####[facility] [id number] [place] [address] [place] WBC (Bld) [#/Vol] 8.82 10*3/uL Normal 3.70-11.00 [facility] Comment on above: Order Comment: Speci men Type: BLOOD SPECIMENOrdering Facility: [facility] Address: [address] [place] [address] Performed By: #### 5 8410-2 ####[facility] [id number] [address] OF [facility] Comprehensive metabolic 2000 panelon 08-26-2022 Albumin [Mass/Vol] 4.0 g/dL Normal 3.9-4.9 [facility] Comment on above: Order Comment: Speci men Type: BLOOD SPECIMENOrdering Facility: [facility] Address: [address] [place] [address] Performed By: #### 1 9123-9, 52839-1 ####[facility] [id number] [place] [address] [place] ALP [Catalytic activity/Vol] 53 U/L Normal 38-113 [facility] Comment on above: Order Comment: Speci men Type: BLOOD SPECIMENOrdering Facility: [facility] Address: [address] [place] [address] Performed By: #### 1 9123-9, 34367-4 ####[facility] [id number] [place] [address] [place] ALT [Catalytic activity/Vol] 20 U/L Normal 10-54 [facility] Comment on above: Order Comment: Speci men Type: BLOOD SPECIMENOrdering Facility: [facility] Address: [address] [place] [phone] Performed By: #### 1 9123-9, 28125-9 ####[facility] [id number] [place] [address] [place] Anion gap [Moles/Vol] 11 mmol/L Normal 9-18 [facility] Comment on above: Order Comment: Speci men Type: BLOOD SPECIMENOrdering Facility: [facility] Address: [address] [place] [address] Performed By: #### 1 9123-9, ####[facility] [id number] [place] [address] [place] AST [Catalytic activity/Vol] 12 U/L Low 14-40 [facility] Comment on above: Order Comment: Speci men Type: BLOOD SPECIMENOrdering Facility: [facility] Address: [address] [place] [id number] Performed By: #### 1 9123-9, ####[facility] [id number] [place] [address] [place] Bilirubin [Mass/Vol] 1.5 mg/dL High 0.2-1.3 [facility] Comment on above: Order Comment: Speci men Type: BLOOD SPECIMENOrdering Facility: [facility] Address: [address] [place] [phone] Performed By: #### 1 239, ####[facility] [id number] [place] [address] [place] Calcium [Mass/Vol] 9.2 mg/dL Normal 8.5-10.2 [facility] Comment on above: Order Comment: Speci men Type: BLOOD SPECIMENOrdering Facility: [facility] Address: [address] [place] [address] Performed By: #### 1 9123-9, ####[facility] [id number] [place] [address] [place] Chloride [Moles/Vol] 105 mmol/L Normal 97-105 [facility] Comment on above: Order Comment: Speci men Type: BLOOD SPECIMENOrdering Facility: [facility] Address: [address] [place] [address] Performed By: #### 1 [address]12[address], ####[facility] [id number] [place] [address] [place] CO2 [Moles/Vol] 24 mmol/L Normal 22-30 [facility] Comment on above: Order Comment: Speci men Type: BLOOD SPECIMENOrdering Facility: [facility] Address: [address] [place] [address] Performed By: #### 1 91239, ####[facility] [id number] [address] [place] Creatinine [Mass/Vol] 0.90 mg/dL Normal 0.73-1.22 [facility] Comment on above: Order Comment: Speci men Type: BLOOD SPECIMENOrdering Facility: [facility] Address: [address] [place] [address] Performed By: #### 1 91239, ####[facility] [id number] [address] ESTIMATED GLOMERULAR FILTRATION RATE 106 mL/min/1.73m??? Normal >=60 [facility] Comment on above: Order Comment: Speci men Type: BLOOD SPECIMENOrdering Facility: [facility] Address: [address] [place] [address] Result Comment: Lucina mated Glomerular Filtration Rate (eGFR) is calculated using the 2020 CKD-EPI creatinine equation. This equation utilizes serum creatinine, sex, and age as parameters. The creatinine assay has traceable calibration to isotope dilution-mass spectrometry. Refer to KDIGO guidelines for clinical interpretation. In patients with unstable renal function, e.g. those with acute kidney injury, the eGFR may not accurately reflect actual GFR. Performed By: #### 1 9123-9, 58115-1 ####[facility] [id number] [place] [address] [place] Glucose [Mass/Vol] 156 mg/dL High 74-99 [facility] Comment on above: Order Comment: Speci men Type: BLOOD SPECIMENOrdering Facility: [facility] Address: [address] [place] [address] Result Comment: The [place] [employer] Association (ADA) provides guidance for cutoff values for fasting glucose and random glucose. The ADA defines fasting as no caloric intake for at least 8 hours. Fasting plasma glucose results between 100 to 125 mg/dL indicate increased risk for diabetes (prediabetes).Fasting plasma glucose results greater than or equal to 126 mg/dL meet the criteria for diagnosis of diabetes. In the absence of unequivocal hyperglycemia, results should be confirmed by repeat testing. In a patient with classic symptoms of hyperglycemia or hyperglycemic crisis, random plasma glucose results greater than or equal to 200 mg/dL meet the criteria for diagnosis of diabetes.Reference: Standards of Medical Care in Diabetes 2016, [place] [employer]. Diabetes Care. 2016.39(Suppl 1). Performed By: #### 1 9123-9, 16642-8 ####[facility] [id number] [place] [address] [place] Potassium [Moles/Vol] 3.9 mmol/L Normal 3.7-5.1 [facility] Comment on above: Order Comment: Speci men Type: BLOOD SPECIMENOrdering Facility: [facility] Address: [address] [place], [place] [id number] Performed By: #### 1 9123-9, 46505-0 ####[facility] [id number] [place] [address] [place] Protein [Mass/Vol] 6.6 g/dL Normal 6.3-8.0 [facility] Comment on above: Order Comment: Speci men Type: BLOOD SPECIMENOrdering Facility: [facility] Address: [address] [place] [address] Performed By: #### 1 9123-9, 27412-0 ####[facility] [id number] [place] [address] [place] Sodium [Moles/Vol] 140 mmol/L Normal 136-144 [facility] Comment on above: Order Comment: Speci men Type: BLOOD SPECIMENOrdering Facility: [facility] Address: [address] [place] [address] Performed By: #### 1 9123-9, 54755-5 ####[facility] [id number] [place] [address] [place] Urea nitrogen [Mass/Vol] 16 mg/dL Normal 9-24 [facility] Comment on above: Order Comment: Speci men Type: BLOOD SPECIMENOrdering Facility: [facility] Address: [address] [place] [address] Performed By: #### 1 9123-9, 87160-6 ####[facility] [id number] [place] [address] [place] Magnesium SerPl-mCncon 08-26 Magnesium [Mass/Vol] 2.1 mg/dL Normal 1.7-2.3 [facility] Comment on above: Order Comment: Speci men Type: BLOOD SPECIMENOrdering Facility: [facility] Address: [address] [place] [address] Performed By: #### 1 9123-9, 99010-8 ####[facility] [id number] [place] [address] [place] PT panel Coag (PPP)on 2022 INR Coag (PPP) [Relative time] 1.7 {INR} High 0.9-1.3 [facility] Comment on above: Order Comment: Speci men Type: BLOOD SPECIMENOrdering Facility: [facility] Address: [address] [place] [address] Result Comment: Zofia min K Antagonist (VKA) Therapeutic Range: INR 2 to 3 (Target INR of 2.5)Note: For patients treated with VKA drugs, such as warfarin, the [place] [employer] 2012 Guideline recommends a therapeutic INR range of 2 to 3 (target INR of 2.5). This recommendation includes high-risk patients with antiphospholipid syndrome with previous arterial or venous thromboembolism, current-generation mechanical or bioprosthetic aortic heart valve replacement.Note: Patients with mechanical aortic valve replacement and additional risk factors for thromboembolic events (atrial fibrillation, previous thromboembolism, LV dysfunction, hypercoagulable conditions) or an older generation mechanical AVR (i.e., ball in-Cage) or any mechanical MVR should have a INR therapeutic range of 2.5 to 3.5 (target INR of 3).Suzanne GH, et al. Chest 2012, 141:7S-47SNishimura RA, et al. [facility] 2017, 70: 252-289 Performed By: #### 3 4528-0, 18498-9 ####[facility] [id number] [place] [address] [place] PT Coag (PPP) [Time] 17.2 s High 9.7-13.0 [facility] Comment on above: Order Comment: Noah schmidt Type: BLOOD SPECIMENOrdering Facility: [facility] Address: [address] [address] Performed By: #### 3 4528-0, 12135-2 ####[facility] [id number] [address] [place] INR Coag (PPP) [Relative time] 1.8 {INR} High 0.9-1.3 [facility] Comment on above: Order Comment: Noah schmidt Type: BLOOD SPECIMENOrdering Facility: [facility] Address: [address] [address] Result Comment: Zofia min K Antagonist (VKA) Therapeutic Range: INR 2 to 3 (Target INR of 2.5)Note: For patients treated with VKA drugs, such as warfarin, the [place] [employer] 2012 Guideline recommends a therapeutic INR range of 2 to 3 (target INR of 2.5). This recommendation includes high-risk patients with antiphospholipid syndrome with previous arterial or venous thromboembolism, current-generation mechanical or bioprosthetic aortic heart valve replacement.Note: Patients with mechanical aortic valve replacement and additional risk factors for thromboembolic events (atrial fibrillation, previous thromboembolism, LV dysfunction, hypercoagulable conditions) or an older generation mechanical AVR (i.e., ball in-Cage) or any mechanical MVR should have a INR therapeutic range of 2.5 to 3.5 (target INR of 3).Suzanne GH, et al. Chest 2012, 141:7S-47SNishimura RA, et al. [facility] 2017, 70: 252-289 Performed By: #### 3 4528-0, 70762-1 ####[facility] [id number] [place] [address] [place] PT Coag (PPP) [Time] 17.9 s High 9.7-13.0 [facility] Comment on above: Order Comment: Speci men Type: BLOOD SPECIMENOrdering Facility: [facility] Address: [address] [place] [address] Performed By: #### 3 4528-0, 78424-0 ####[facility] [id number] [place] [address] [place] PTT, ANTICOAGULANT THERAPYon 08-26-2022 aPTT Coag (PPP) [Time] 34.1 s High 23.0-32.4 [facility] Comment on above: Order Comment: Speci men Type: BLOOD SPECIMENOrdering Facility: [facility] Address: [address] [address] Performed By: #### P TTAC ####[facility] [id number] [place] [address] [place] TYPE + SCREENon 08-26-2022 ABO O Normal [facility] Comment on above: Order Comment: Speci men Type: BLOOD SPECIMENOrdering Facility: [facility] Address: [address] [address] Performed By: #### T SCR ####[facility] BLOOD BANKIA [id number] [address] [place] HISTORICAL AB SCR STATUS Negative Normal [facility] Comment on above: Order Comment: Speci men Type: BLOOD SPECIMENOrdering Facility: [facility] Address: [address] [address] Performed By: #### T SCR ####[facility] BANKCLIA [id number] [address] [place] Rh Nom (Bld) Negative Normal [facility] Comment on above: Order Comment: Speci men Type: BLOOD SPECIMENOrdering Facility: [facility] Address: [address] [place] [address] Performed By: #### T SCR ####[facility] BLOOD BANKCLIA [id number] [address] [place] TYPE AND SCREEN EXPIRATION 08/29/2022 23:59 Normal [facility] Comment on above: Order Comment: Speci men Type: BLOOD SPECIMENOrdering Facility: [facility] Address: [address] [place] [address] Performed By: #### T SCR ####[facility]ANKCL[facility] [id number] [address] [place] XR CHEST 1V FRONTAL PORTon 0 08-26-2022 XR CHEST 1V FRONTAL PORT Normal [facility] XR CHEST 2V FRONTAL/LATon XR CHEST 2V FRONTAL/LAT Normal C [facility] aPTT PPPon 08-26-2022 aPTT Coag (PPP) [Time] 39.1 s High 23.0-32.4 Cl [facility] Comment on above: Order Comment: Speci men Type: BLOOD SPECIMENOrdering Facility: [facility] Address: [address] [place], [place] [id number] Performed By: #### 3 4528-0, 49359-9 ####[facility] [id number] [place] [address] [place] aPTT Coag (PPP) [Time] 36.8 s High 23.0-32.4 Cl [facility] Comment on above: Order Comment: Speci men Type: BLOOD SPECIMENOrdering Facility: [facility] Address: [address] [place] [address] Performed By: #### 3 4528-0, 59867-4 ####[facility] [id number] [address] [place] Absolute lymphocyte countOrd ered By: Dr. Whyte on 08-25-2022 Lymphocytes Auto (Unsp spec) [#/Vol] 2.12 10*3/uL 0.83-4.51 [facility] Basophil percentageOrdered B y: Dr. Whyte on 08-25-2022 Basophils/100 WBC (Bld) 0.5 % 0-1 [facility] Chloride [Moles/Vol] 107 mmol/L 98-107 [facility] Eosinophils/100 WBC (Bld) 1.3 % 0-5 [facility] Glucose [Mass/Vol] 146 mg/dL 74-106 [facility] Comment on above: Fasting Glucose resu lt greater than or equal to 126 mg/dL suggests DIABETES MELLITUS per A.D.A. criteria. Neutrophils (Bld) [#/Vol] 7.4 10*3/uL 2.0-7.7 [facility] Neutrophils/100 WBC (Bld) 67.3 % 47-70 [facility] Potassium [Moles/Vol] 3.9 mmol/L 3.5-5.1 [facility] Sodium [Moles/Vol] 142 mmol/L 136-145 [facility] WBC (Bld) [#/Vol] 11.0 10*3/uL 4.4-11.0 [facility] Blood erythrocytes count (nu mber/volume)Ordered By: Dr. Whyte on 08-25-2022 RBC (Bld) [#/Vol] 4.91 10*6/uL 4.6-6.2 [facility] Blood hemoglobin measurement (mass/volume)Ordered By: Dr. Whyte on 08-25-2022 Hemoglobin (Bld) [Mass/Vol] 14.1 g/dL 13.0-16.5 [facility] Blood lymphocytes/100 leukoc ytesOrdered By: Dr. Whyte on 08-25-2022 Lymphocytes/100 WBC (Bld) 19.4 % 19-41 [facility] Blood monocytes/100 leukocyt esOrdered By: Dr. Whyte on 08-25-2022 Monocytes/100 WBC (Bld) 11.1 % 0-10 [facility] Blood platelet mean volumeOr dered By: Dr. Whyte on 08-25-2022 Platelet mean volume (Bld) [Entitic vol] 10.0 fL 6.2-12.0 [facility] COVID-19 virus antigen assay Ordered By: Dr. Whyte on 08-25-2022 SARS-CoV-2 (COVID-19) Ag IA.rapid Ql (Resp) [facility] Determination of erythrocyte mean corpuscular volume (MCV)Ordered By: Dr. Whyte on 08-25-2022 MCV (RBC) [Entitic vol] 86.4 fL 80-94 [facility] Hematocrit Auto (Bld) [Volum e fraction]Ordered By: Dr. Whyte on 08-25-2022 Hematocrit (Bld) [Volume fraction] 42.4 % 40-54 [facility] INR in Blood by Coagulation assayOrdered By: Dr. Whyte on 08-25-2022 INR Coag (Bld) [Relative time] 2.1 {INR} [facility] Laboratory - Chemistry and C hemistry - challengeOrdered By: Dr. Whyte on 08-25-2022 CO2 [Moles/Vol] 27.0 mmol/L 21.0-32.0 [facility] Natriuretic peptide B (Bld) [Mass/Vol] 156.2 pg/mL 0-100 [facility] Urea nitrogen/Creatinine [Mass ratio] 20.0 mg/mg 10-20 [facility] - CoagulationOrde red By: Dr. Whyte on 08-25-2022 aPTT Coag (Bld) [Time] 37.8 s 24.1-36.2 [facility] PT Coag (PPP) [Time] 23.4 s 11.7-14.9 [facility] Laboratory - Hematology and Cell countsOrdered By: Dr. Whyte on 08-25-2022 Erythrocyte distribution width (RBC) [Entitic vol] 41.0 fL 35.1-43.9 [facility] Erythrocyte distribution width (RBC) [Ratio] 13.2 % 11.6-14.6 [facility] Immature granulocytes/100 WBC (Bld) 0.400 % 0.0-0.9 [facility] Comment on above: IG% - Immature Granu locytes (promyelocytes, myelocytes and metamyelocytes) > 1% indicates that a LEFT SHIFT is Present. MCH (RBC) [Entitic mass] 28.7 pg 27.0-32.0 [facility] Nucleated RBC/100 WBC (Bld) [Ratio] 0 % 0-5 [facility] MCHC Auto (RBC) [Mass/Vol]Or dered By: Dr. Whyte on 08-25-2022 MCHC (RBC) [Mass/Vol] 33.3 g/dL 32-36 [facility] No Panel InformationOrdered By: Dr. Whyte on 08-25-2022 Troponin I High Sensitivity 8 pg/mL 3.0-78.0 [facility] Comment on above: Please Note: New [place]en t Units and Gender Specific Reference Ranges. For more information see Policy Stat Procedure [place] High Sensitivity Troponin (TNIH) and attachments. Estimated Creatinine Clearance Calc 91.32 ml/min [facility] Estimated GFR (MDRD) Amer 103 mL/min >60 [facility] Comment on above: GFR Calc Estimated GFR (MDRD) Non-Af Amer 85 mL/min >60 [facility] Comment on above: Non- GFR Calc Platelets bldOrdered By: Dr. Whyte on 08-25-2022 Platelets (Bld) [#/Vol] 289 10*3/uL 150-450 [facility] Serum or plasma calcium sampson urement (mass/volume)Ordered By: Dr. Whyte on 08-25-2022 Calcium [Mass/Vol] 9.4 mg/dL 8.5-10.1 [facility] Serum or plasma creatinine m easurement (mass/volume)Ordered By: Dr. Whyte on 08-25-2022 Creatinine [Mass/Vol] 1.00 mg/dL 0.70-1.30 [facility] Comment on above: The validity of the calculated GFR & GFRAA in patients over 70 years has not been determined. Clinical correlation is essential. Serum or plasma urea nitroge n measurement (mass/volume)Ordered By: Dr. Whyte on 08-25-2022 Urea nitrogen [Mass/Vol] 20 mg/dL 7-18 [facility] Thin prep Papanicolaou smear with manual screeningOrdered By: Dr. Whyte on 08-25-2022 Thin prep Papanicolaou smear with manual screening 8 5-15 [facility] CNPNon 08-24-2022 CNPN Normal [facility] Erythrocyte sedimentation ra teOrdered By: Dariana Jurado on 08-24-2022 ESR (Bld) [Velocity] 1 mm/h 0-20 [facility] No Panel InformationOrdered By: Dariana Jurado on 08-24-2022 C-Reactive Protein High Sensitivity 6.02 mg/L <3.00 [facility] Comment on above: Low Relative Risk of CVD <1.0 mg/L Average Relative Risk of CVD 1.0 - 3.0 mg/L High Relative Risk of CVD >3.0 mg/L [facility] 08-03-2022 CNPN Telephone (MM5WST) LEWIS GEORGE ([id number]) 1975 M Date Time Provider Department 08/03/22 MARJORIE BABB MM5WST During your visit today, we recorded the following information about you: Marjorie Babb RN 08/03/2022 10:24 AM Signed 1. We are calling to check on how you are doing since our last phone call. Are you having any medical concerns we can help you with today? (Standard Question) No Overall Comments: Closing statement provided, all clear. If you have any questions or concerns, we have nurses available 13/02 to help you at [phone]. Allergies As of Date: 08/03/2022 (No Known Allergies) Date Reviewed: 07/27/2022 Reviewed by: Darshana Sumner RN - Fully Assessed Reason for Visit: Follow Up Phone Call [[phone]] [facility] Prescriptions as of 08/03/2022 - metoprolol succinate ER (TOPROL XL) 100 mg Take 1 tablet by mouth twice daily. - warfarin (COUMADIN) 5 mg tablet Take 2 tablets by mouth once daily. - lisinopril (ZESTRIL, PRINIVIL) 5 mg tablet Take 3 tablets by mouth once daily. - aspirin, enteric coated (ASPIRIN, ENTERIC COATED) 81 mg EC tablet Take 81 mg by mouth once daily. - Cholecalciferol, Vitamin D3, 125 mcg (5,000 unit) cap Take 125 mcg by mouth once daily. - fexofenadine (DORI) 180 mg tablet Take 180 mg by mouth once daily. Facility-Administere d Medications as of 08/03/2022 - perflutren lipid microspheres 1.3 mL in NaCl (PF) 0.9% 10 mL injection (DEFINITY) - sodium chloride 0.9 % (flush) 10 mL (BD POSIFLUSH) Problem List As Of Date 08/03/2022 Noted Resolved Discharge planning issues [Z02.9] 07/12/2022 Pre-op testing [Z01.818] 07/12/2022 Essential hypertension [I10] 06/10/2022 Asthma [J45.909] 06/10/2022 Morbid obesity (HCC) [E66.01] 07/12/2022 Severe aortic valve stenosis [I35.0] 07/04/2022 Bicuspid aortic valve [Q23.1] 07/12/2022 History of COVID-19 [Z86.16] 07/12/2022 Obesity, Class III, BMI >= 40 [E66.01] 07/17/2022 Nonrheumatic aortic valve stenosis [I35.0] 07/19/2022 Shortness of breath [R06.02] 07/19/2022 On mechanically assisted ventilation (HCC) [Z99*07/19/2022 07/20/2022 Hypotension [I95.9] 07/19/2022 07/20/2022 Postoperative pain [G89.18] 07/19/2022 Hypovolemia [E86.1] 07/19/2022 07/20/2022 Stress hyperglycemia [R73.9] 07/19/2022 07/22/2022 Atelectasis [J98.11] 07/20/2022 07/23/2022 Fluid overload [E87.70] 07/20/2022 07/22/2022 Encounter for support and coordination of trans*07/22/2022 Acute loss of vision, bilateral [H53.133] 07/26/2022 Anticoagulation management encounter [Z51.81, Z*07/27/2022 Encounter Status:Closed by MARJORIE BABB on 08/03/22 [facility] Normal [facility] CBC panel Auto (Bld)on 07-28 Erythrocyte distribution width (RBC) [Ratio] 12.6 % Normal 11.5-15.0 [facility] Comment on above: Order Comment: Speci men Type: BLOOD SPECIMENOrdering Facility: [facility] Address: [address] [place] [address] Performed By: #### 5 8410-2 ####[facility] [id number] [place] [address] [place] Hematocrit (Bld) [Volume fraction] 35.8 % Low 39.0-51.0 [facility] Comment on above: Order Comment: Speci men Type: BLOOD SPECIMENOrdering Facility: [facility] Address: [address] [place] [address] Performed By: #### 5 8410-2 ####[facility] [id number] [place] [address] [place] Hemoglobin (Bld) [Mass/Vol] 12.3 g/dL Low 13.0-17.0 [facility] Comment on above: Order Comment: Speci men Type: BLOOD SPECIMENOrdering Facility: [facility] Address: [address] [address] Performed By: #### 5 8410-2 ####[facility] [id number] [address] [place] OF [facility] MCH (RBC) [Entitic mass] 28.7 pg Normal 26.0-34.0 [facility] Comment on above: Order Comment: Speci men Type: BLOOD SPECIMENOrdering Facility: [facility] Address: [address] [place] [address] Performed By: #### 5 8410-2 ####[facility] [id number] [address] MCHC (RBC) [Mass/Vol] 34.4 g/dL Normal 30.5-36.0 [facility] Comment on above: Order Comment: Speci men Type: BLOOD SPECIMENOrdering Facility: [facility] Address: [address] [place] [address] Performed By: #### 5 8410-2 ####[facility] [id number] [address] STATES [facility] MCV (RBC) [Entitic vol] 83.6 fL Normal 80.0-100.0 [facility] Comment on above: Order Comment: Speci men Type: BLOOD SPECIMENOrdering Facility: [facility] Address: [address] [place] [address] Performed By: #### 5 8410-2 ####[facility] [id number] [address] Nucleated RBC (Bld) [#/Vol] 10*3/uL Normal <0.01 [facility] Comment on above: Order Comment: Speci men Type: BLOOD SPECIMENOrdering Facility: [facility] Address: [address] [place] [address] Performed By: #### 5 8410-2 ####[facility] [id number] [id number] [address] [place] Platelet mean volume (Bld) [Entitic vol] 9.4 fL Normal 9.0-12.7 [facility] Comment on above: Order Comment: Speci men Type: BLOOD SPECIMENOrdering Facility: [facility] Address: [address] [place] [id number] Performed By: #### 5 8410-2 ####[facility] [id number] [place] [address] [place] Platelets (Bld) [#/Vol] 186 10*3/uL Normal 150-400 [facility] Comment on above: Order Comment: Speci men Type: BLOOD SPECIMENOrdering Facility: [facility] Address: [address] [place] [id number] Performed By: #### 5 8410-2 ####[facility] [id number] [place] [address] [place] RBC (Bld) [#/Vol] 4.28 10*6/uL Normal 4.20-6.00 [facility] Comment on above: Order Comment: Speci men Type: BLOOD SPECIMENOrdering Facility: [facility] Address: [address] [place] [id number] Performed By: #### 5 8410-2 ####[facility] [id number] [place] [address] [place] WBC (Bld) [#/Vol] 8.95 10*3/uL Normal 3.70-11.00 [facility] Comment on above: Order Comment: Speci men Type: BLOOD SPECIMENOrdering Facility: [facility] Address: [address] [place] [id number] Performed By: #### 5 8410-2 ####[facility] [id number] [place] [address] [place] CNDSon 07-28-2022 CNDS Normal [facility] metabolic 2000 panelon 07-28-2022 Albumin [Mass/Vol] 4.3 g/dL Normal 3.9-4.9 [facility] Comment on above: Order Comment: Speci men Type: BLOOD SPECIMENOrdering Facility: [facility] Address: [address] Performed By: #### 2 4323-8 ####[facility] [id number] [place] [address] [place] ALP [Catalytic activity/Vol] 62 U/L Normal 38-113 [facility] Comment on above: Order Comment: Speci men Type: BLOOD SPECIMENOrdering Facility: [facility] Address: [address] Performed By: #### 2 4323-8 ####[facility] [id number] [place] [address] [place] ALT [Catalytic activity/Vol] 62 U/L High 10-54 [facility] Comment on above: Order Comment: Speci men Type: BLOOD SPECIMENOrdering Facility: [facility] Address: [address] Performed By: #### 2 4323-8 ####[facility] [id number] [place] [address] [place] Anion gap [Moles/Vol] 14 mmol/L Normal 9-18 [facility] Comment on above: Order Comment: Speci men Type: BLOOD SPECIMENOrdering Facility: [facility] Address: [address] Performed By: #### 2 4323-8 ####[facility] [id number] [place] [address] [place] AST [Catalytic activity/Vol] 35 U/L Normal 14-40 [facility] Comment on above: Order Comment: Speci men Type: BLOOD SPECIMENOrdering Facility: [facility] Address: [address] Performed By: #### 2 4323-8 ####[facility] [id number] [place] [address] [place] Bilirubin [Mass/Vol] 0.5 mg/dL Normal 0.2-1.3 [facility] Comment on above: Order Comment: Speci men Type: BLOOD SPECIMENOrdering Facility: [facility] Address: [address] [place] [address] Performed By: #### 2 4323-8 ####[facility] [id number] [place] [address] [place] Calcium [Mass/Vol] 9.5 mg/dL Normal 8.5-10.2 [facility] Comment on above: Order Comment: Speci men Type: BLOOD SPECIMENOrdering Facility: [facility] Address: [address] [place] [address] Performed By: #### 2 4323-8 ####[facility] [id number] [place] [address] [place] [place] Chloride [Moles/Vol] 103 mmol/L Normal 97-105 [facility] Comment on above: Order Comment: Speci men Type: BLOOD SPECIMENOrdering Facility: [facility] Address: [address] [place] [address] Performed By: #### 2 4323-8 ####[facility] [id number] [place] [address] [place] CO2 [Moles/Vol] 23 mmol/L Normal 22-30 [facility] Comment on above: Order Comment: Speci men Type: BLOOD SPECIMENOrdering Facility: [facility] Address: [address] [place], [place] [phone] Performed By: #### 2 4323-8 ####[facility] [id number] [place] [address] [place] Creatinine [Mass/Vol] 1.08 mg/dL Normal 0.73-1.22 [facility] Comment on above: Order Comment: Noah brayan Type: BLOOD SPECIMENOrdering Facility: [facility] Address: [address] [address] Performed By: #### 2 4323-8 ####[facility] [id number] [place] [address] [place] ESTIMATED GLOMERULAR FILTRATION RATE 85 mL/min/1.73m??? Normal >=60 [facility] Comment on above: Order Comment: Angiemarcus schmidt Type: BLOOD SPECIMENOrdering Facility: [facility] Address: [address] [address] Result Comment: Lucina mated Glomerular Filtration Rate (eGFR) is calculated using the 2020 CKD-EPI creatinine equation. This equation utilizes serum creatinine, sex, and age as parameters. The creatinine assay has traceable calibration to isotope dilution-mass spectrometry. Refer to KDIGO guidelines for clinical interpretation. In patients with unstable renal function, e.g. those with acute kidney injury, the eGFR may not accurately reflect actual GFR. Performed By: #### 2 4323-8 ####[facility] [id number] [place] [address] [place] Glucose [Mass/Vol] 97 mg/dL Normal 74-99 [facility] Comment on above: Order Comment: Noah brayan Type: BLOOD SPECIMENOrdering Facility: [facility] Address: [address] [address] Result Comment: The [place] [employer] (ADA) provides guidance for cutoff values for fasting glucose and random glucose. The ADA defines fasting as no caloric intake for at least 8 hours. Fasting plasma glucose results between 100 to 125 mg/dL indicate increased risk for diabetes (prediabetes).Fasting plasma glucose results greater than or equal to 126 mg/dL meet the criteria for diagnosis of diabetes. In the absence of unequivocal hyperglycemia, results should be confirmed by repeat testing. In a patient with classic symptoms of hyperglycemia or hyperglycemic crisis, random plasma glucose results greater than or equal to 200 mg/dL meet the criteria for diagnosis of diabetes.Reference: Standards of Medical Care in Diabetes 2016, [place] [employer]. Diabetes Care. 2016.39(Suppl 1). Performed By: #### 2 4323-8 ####[facility] [id number] [place] [address] [place] Potassium [Moles/Vol] 4.5 mmol/L Normal 3.7-5.1 [facility] Comment on above: Order Comment: Speci men Type: BLOOD SPECIMENOrdering Facility: [facility] Address: [address] [address] Performed By: #### 2 4323-8 ####[facility] [id number] [place] [address] [place] Protein [Mass/Vol] 7.2 g/dL Normal 6.3-8.0 [facility] Comment on above: Order Comment: Speci men Type: BLOOD SPECIMENOrdering Facility: [facility] Address: [address] [address] Performed By: #### 2 4323-8 ####[facility] [id number] [place] [address] [place] Sodium [Moles/Vol] 140 mmol/L Normal 136-144 [facility] Comment on above: Order Comment: Speci men Type: BLOOD SPECIMENOrdering Facility: [facility] Address: [address] Performed By: #### 2 4323-8 ####[facility] [id number] [place] [address] [place] Urea nitrogen [Mass/Vol] 24 mg/dL Normal 9-24 [facility] Comment on above: Order Comment: Speci men Type: BLOOD SPECIMENOrdering Facility: [facility] Address: [address] Performed By: #### 2 4323-8 ####[facility] [id number] [place] [address] [place] PT panel Coag (PPP)on 2022 INR Coag (PPP) [Relative time] 2.2 {INR} High 0.9-1.3 [facility] Comment on above: Order Comment: Noah schmidt Type: BLOOD SPECIMENOrdering Facility: [facility] Address: [address] [id number] Result Comment: Zofia min K Antagonist (VKA) Therapeutic Range: INR 2 to 3 (Target INR of 2.5)Note: For patients treated with VKA drugs, such as warfarin, the [place] [employer] 2012 Guideline recommends a therapeutic INR range of 2 to 3 (target INR of 2.5). This recommendation includes high-risk patients with antiphospholipid syndrome with previous arterial or venous thromboembolism, current-generation mechanical or bioprosthetic aortic heart valve replacement.Note: Patients with mechanical aortic valve replacement and additional risk factors for thromboembolic events (atrial fibrillation, previous thromboembolism, LV dysfunction, hypercoagulable conditions) or an older generation mechanical AVR (i.e., ball in-Cage) or any mechanical MVR should have a INR therapeutic range of 2.5 to 3.5 (target INR of 3).Yohanatt GH, et al. Chest 2012, 141:7S-47SNishimura RA, et al. [facility] 2017, 70: 252-289 Performed By: #### P TTA, 14437-2 ####[facility] [id number] [place] [address] [place] PT Coag (PPP) [Time] 21.9 s High 9.7-13.0 [facility] Comment on above: Order Comment: Noah schmidt Type: BLOOD SPECIMENOrdering Facility: [facility] Address: [place] [address] Performed By: #### P TTA, 91884-2 ####[facility] [id number] [place] [address] [place] PTT, ANTICOAGULANT THERAPYon 07-28-2022 aPTT Coag (PPP) [Time] 83.1 s High 23.0-32.4 [facility] Comment on above: Order Comment: Speci men Type: BLOOD SPECIMENOrdering Facility: [facility] Address: [address] [place] [address] Performed By: #### P [facility], [address]-3 ####[facility] [id number] [place] [address] [place] CBC panel Auto (Bld)on 07-27 Erythrocyte distribution width (RBC) [Ratio] 12.6 % Normal 11.5-15.0 [facility] Comment on above: Order Comment: Speci men Type: BLOOD SPECIMENOrdering Facility: [facility] Address: [address] [place] [address] Performed By: #### 5 8410-2 ####[facility] [id number] [address] [place] Hematocrit (Bld) [Volume fraction] 37.5 % Low 39.0-51.0 [facility] Comment on above: Order Comment: Speci men Type: BLOOD SPECIMENOrdering Facility: [facility] Address: [address] [place] [address] Performed By: #### 5 8410-2 ####[facility] [id number] [place] [address] [place] Hemoglobin (Bld) [Mass/Vol] 12.7 g/dL Low 13.0-17.0 [facility] Comment on above: Order Comment: Speci men Type: BLOOD SPECIMENOrdering Facility: [facility] Address: [address] [place] [address] Performed By: #### 5 8410-2 ####[facility] [id number] [place] [address] [place] MCH (RBC) [Entitic mass] 28.2 pg Normal 26.0-34.0 [facility] Comment on above: Order Comment: Speci men Type: BLOOD SPECIMENOrdering Facility: [facility] Address: [address] Performed By: #### 5 8410-2 ####[facility] [id number] [address] [place] [facility] MCHC (RBC) [Mass/Vol] 33.9 g/dL Normal 30.5-36.0 [facility] Comment on above: Order Comment: Speci men Type: BLOOD SPECIMENOrdering Facility: [facility] Address: [address] [address] Performed By: #### 5 8410-2 ####[facility] [id number] [address] [place] MCV (RBC) [Entitic vol] 83.1 fL Normal 80.0-100.0 [facility] Comment on above: Order Comment: Speci men Type: BLOOD SPECIMENOrdering Facility: [facility] Address: [address] [place] [phone] Performed By: #### 5 8410-2 ####[facility] [id number] [place] [address] [place] Nucleated RBC (Bld) [#/Vol] 10*3/uL Normal <0.01 [facility] Comment on above: Order Comment: Speci men Type: BLOOD SPECIMENOrdering Facility: [facility] Address: [address] [place] [phone] Performed By: #### 5 8410-2 ####[facility] [id number] [place] [address] [place] Platelet mean volume (Bld) [Entitic vol] 9.3 fL Normal 9.0-12.7 [facility] Comment on above: Order Comment: Speci men Type: BLOOD SPECIMENOrdering Facility: [facility] Address: [address] [place] [phone] Performed By: #### 5 8410-2 ####[facility] [id number] [place] [address] [place] Platelets (Bld) [#/Vol] 232 10*3/uL Normal 150-400 [facility] Comment on above: Order Comment: Speci men Type: BLOOD SPECIMENOrdering Facility: [facility] Address: [address] [place] [address] Performed By: #### 5 8410-2 ####[facility] [id number] [place] [address] [place] RBC (Bld) [#/Vol] 4.51 10*6/uL Normal 4.20-6.00 [facility] Comment on above: Order Comment: Speci men Type: BLOOD SPECIMENOrdering Facility: [facility] Address: [address] [place] [address] Performed By: #### 5 8410-2 ####[facility] [id number] [place] [address] [place] WBC (Bld) [#/Vol] 9.27 10*3/uL Normal 3.70-11.00 [facility] Comment on above: Order Comment: Speci men Type: BLOOD SPECIMENOrdering Facility: [facility] Address: [address] [place] [address] Performed By: #### 5 8410-2 ####[facility] [id number] [place] [address] [place] [facility] [place] Comprehensive metabolic 2000 panelon 07-27-2022 Albumin [Mass/Vol] 4.3 g/dL Normal 3.9-4.9 [facility] Comment on above: Order Comment: Speci men Type: BLOOD SPECIMENOrdering Facility: [facility] Address: [address] [place] [address] Performed By: #### 2 4323-8 ####[facility] [id number] [place] [address] [place] ALP [Catalytic activity/Vol] 58 U/L Normal 38-113 [facility] Comment on above: Order Comment: Speci men Type: BLOOD SPECIMENOrdering Facility: [facility] Address: [address] [place] [address] Performed By: #### 2 4323-8 ####[facility] [id number] [place] [address] [place] ALT [Catalytic activity/Vol] 56 U/L High 10-54 [facility] Comment on above: Order Comment: Speci men Type: BLOOD SPECIMENOrdering Facility: [facility] Address: [address] [place] [address] Performed By: #### 2 4323-8 ####[facility] [id number] [place] [address] [place] Anion gap [Moles/Vol] 14 mmol/L Normal 9-18 [facility] Comment on above: Order Comment: Speci men Type: BLOOD SPECIMENOrdering Facility: [facility] Address: [address] [place] [phone] Performed By: #### 2 4323-8 ####[facility] [id number] [place] [address] [place] AST [Catalytic activity/Vol] 38 U/L Normal 14-40 [facility] Comment on above: Order Comment: Speci men Type: BLOOD SPECIMENOrdering Facility: [facility] Address: [address] [place] [phone] Performed By: #### 2 4323-8 ####[facility] [id number] [place] [address] [place] Bilirubin [Mass/Vol] 0.6 mg/dL Normal 0.2-1.3 [facility] Comment on above: Order Comment: Speci men Type: BLOOD SPECIMENOrdering Facility: [facility] Address: [address] Performed By: #### 2 4323-8 ####[facility] [id number] [place] [address] [place] Calcium [Mass/Vol] 9.8 mg/dL Normal 8.5-10.2 [facility] Comment on above: Order Comment: Speci men Type: BLOOD SPECIMENOrdering Facility: [facility] Address: [address] Performed By: #### 2 4323-8 ####[facility] [id number] [place] [address] [place] Chloride [Moles/Vol] 102 mmol/L Normal 97-105 [facility] Comment on above: Order Comment: Speci men Type: BLOOD SPECIMENOrdering Facility: [facility] Address: [address] Performed By: #### 2 4323-8 ####[facility] [id number] [place] [address] [place] CO2 [Moles/Vol] 23 mmol/L Normal 22-30 [facility] Comment on above: Order Comment: Speci men Type: BLOOD SPECIMENOrdering Facility: [facility] Address: [address] Performed By: #### 2 4323-8 ####[facility] [id number] [place] [address] [place] Creatinine [Mass/Vol] 1.14 mg/dL Normal 0.73-1.22 [facility] Comment on above: Order Comment: Speci men Type: BLOOD SPECIMENOrdering Facility: [facility] Address: [address] Performed By: #### 2 4323-8 ####[facility] [id number] [place] [address] [place] ESTIMATED GLOMERULAR FILTRATION RATE 80 mL/min/1.73m??? Normal >=60 [facility] Comment on above: Order Comment: Noah schmidt Type: BLOOD SPECIMENOrdering Facility: [facility] Address: [address] [place] [address] Result Comment: Lucina mated Glomerular Filtration Rate (eGFR) is calculated using the 2020 CKD-EPI creatinine equation. This equation utilizes serum creatinine, sex, and age as parameters. The creatinine assay has traceable calibration to isotope dilution-mass spectrometry. Refer to KDIGO guidelines for clinical interpretation. In patients with unstable renal function, e.g. those with acute kidney injury, the eGFR may not accurately reflect actual GFR. Performed By: #### 2 4323-8 ####[facility] [id number] [place] [address] [place] Glucose [Mass/Vol] 99 mg/dL Normal 74-99 [facility] Comment on above: Order Comment: Noah schmidt Type: BLOOD SPECIMENOrdering Facility: [facility] Address: [address] [place] [address] Result Comment: The [place] [employer] (ADA) provides guidance for cutoff values for fasting glucose and random glucose. The ADA defines fasting as no caloric intake for at least 8 hours. Fasting plasma glucose results between 100 to 125 mg/dL indicate increased risk for diabetes (prediabetes).Fasting plasma glucose results greater than or equal to 126 mg/dL meet the criteria for diagnosis of diabetes. In the absence of unequivocal hyperglycemia, results should be confirmed by repeat testing. In a patient with classic symptoms of hyperglycemia or hyperglycemic crisis, random plasma glucose results greater than or equal to 200 mg/dL meet the criteria for diagnosis of diabetes.Reference: Standards of Medical Care in Diabetes 2016, [place] [employer]. Diabetes Care. 2016.39(Suppl 1). Performed By: #### 2 4323-8 ####[facility] [id number] [place] [address] [place] Potassium [Moles/Vol] 4.4 mmol/L Normal 3.7-5.1 [facility] Comment on above: Order Comment: Speci men Type: BLOOD SPECIMENOrdering Facility: [facility] Address: [address] [address] Performed By: #### 2 4323-8 ####[facility] [id number] [place] [address] [place] Protein [Mass/Vol] 7.3 g/dL Normal 6.3-8.0 [facility] Comment on above: Order Comment: Speci men Type: BLOOD SPECIMENOrdering Facility: [facility] Address: [address] [address] Performed By: #### 2 4323-8 ####[facility] [id number] [place] [address] [place] Sodium [Moles/Vol] 139 mmol/L Normal 136-144 [facility] Comment on above: Order Comment: Speci men Type: BLOOD SPECIMENOrdering Facility: [facility] Address: [address] [place] [phone] Performed By: #### 2 4323-8 ####[facility] [id number] [place] [address] [place] Urea nitrogen [Mass/Vol] 24 mg/dL Normal 9-24 [facility] Comment on above: Order Comment: Speci men Type: BLOOD SPECIMENOrdering Facility: [facility] Address: [address] Performed By: #### 2 4323-8 ####[facility] [id number] [place] [address] [place] PT panel Coag (PPP)on 2022 INR Coag (PPP) [Relative time] 1.9 {INR} High 0.9-1.3 [facility] Comment on above: Order Comment: Speci men Type: BLOOD SPECIMENOrdering Facility: [facility] Address: [address] [place] [phone] Result Comment: Zofia min K Antagonist (VKA) Therapeutic Range: INR 2 to 3 (Target INR of 2.5)Note: For patients treated with VKA drugs, such as warfarin, the [place] [employer] 2012 Guideline recommends a therapeutic INR range of 2 to 3 (target INR of 2.5). This recommendation includes high-risk patients with antiphospholipid syndrome with previous arterial or venous thromboembolism, current-generation mechanical or bioprosthetic aortic heart valve replacement.Note: Patients with mechanical aortic valve replacement and additional risk factors for thromboembolic events (atrial fibrillation, previous thromboembolism, LV dysfunction, hypercoagulable conditions) or an older generation mechanical AVR (i.e., ball in-Cage) or any mechanical MVR should have a INR therapeutic range of 2.5 to 3.5 (target INR of 3).Suzanne TRUJILLO, et al. Chest 2012, 141:7S-47SNishsuzi EL, et al. [facility] 2017, 70: 252-289 Performed By: #### 3 4528-0, PTTAC ####[facility] [id number] [place] [address] [place] INR Coag (PPP) [Relative time] 1.8 {INR} High 0.9-1.3 [facility] Comment on above: Order Comment: Speci men Type: BLOOD SPECIMENOrdering Facility: [facility] Address: [address] [place] [address] Result Comment: Zofia min K Antagonist (VKA) Therapeutic Range: INR 2 to 3 (Target INR of 2.5)Note: For patients treated with VKA drugs, such as warfarin, the [place] [employer] 2012 Guideline recommends a therapeutic INR range of 2 to 3 (target INR of 2.5). This recommendation includes high-risk patients with antiphospholipid syndrome with previous arterial or venous thromboembolism, current-generation mechanical or bioprosthetic aortic heart valve replacement.Note: Patients with mechanical aortic valve replacement and additional risk factors for thromboembolic events (atrial fibrillation, previous thromboembolism, LV dysfunction, hypercoagulable conditions) or an older generation mechanical AVR (i.e., ball in-Cage) or any mechanical MVR should have a INR therapeutic range of 2.5 to 3.5 (target INR of 3).Suzanne TRUJILLO, et al. Chest 2012, 141:7S-47SElizabeth RA, et al. [facility] 2017, 70: 252-289 Performed By: #### 3 4528-0 ####[facility] [id number] [address] OF [facility] PT Coag (PPP) [Time] 18.8 s High 9.7-13.0 [facility] Comment on above: Order Comment: Specmarcus schmidt Type: BLOOD SPECIMENOrdering Facility: [facility] Address: [address] [place] [address] Performed By: #### 3 4528-0, PTTAC ####[facility] [id number] [address] PT Coag (PPP) [Time] 18.1 s High 9.7-13.0 [facility] Comment on above: Order Comment: Noah schmidt Type: BLOOD SPECIMENOrdering Facility: [facility] Address: [address] [place] [address] Performed By: #### 3 4528-0 ####[facility] [id number] [address] INR Coag (PPP) [Relative time] 1.8 {INR} High 0.9-1.3 [facility] Comment on above: Order Comment: Noah schmidt Type: BLOOD SPECIMENOrdering Facility: [facility] Address: [address] [place] [address] Result Comment: Zofia min K Antagonist (VKA) Therapeutic Range: INR 2 to 3 (Target INR of 2.5)Note: For patients treated with VKA drugs, such as warfarin, the [place] [employer] 2012 Guideline recommends a therapeutic INR range of 2 to 3 (target INR of 2.5). This recommendation includes high-risk patients with antiphospholipid syndrome with previous arterial or venous thromboembolism, current-generation mechanical or bioprosthetic aortic heart valve replacement.Note: Patients with mechanical aortic valve replacement and additional risk factors for thromboembolic events (atrial fibrillation, previous thromboembolism, LV dysfunction, hypercoagulable conditions) or an older generation mechanical AVR (i.e., ball in-Cage) or any mechanical MVR should have a INR therapeutic range of 2.5 to 3.5 (target INR of 3).Suzanne TRUJILLO, et al. Chest 2012, 141:7S-47SElizabeth EL, et al. [facility] 2017, 70: 252-289 Performed By: #### 3 4528-0, PTTAC ####[facility] [id number] [place] [address] [place] PT Coag (PPP) [Time] 18.1 s High 9.7-13.0 [facility] Comment on above: Order Comment: Noah schmidt Type: BLOOD SPECIMENOrdering Facility: [facility] Address: [address] [place] [address] Performed By: #### 3 4528-0, PTTAC ####[facility] [id number] [place] [address] [place] INR Coag (PPP) [Relative time] 1.6 {INR} High 0.9-1.3 [facility] Comment on above: Order Comment: Noah schmidt Type: BLOOD SPECIMENOrdering Facility: [facility] Address: [address] [place] [address] Result Comment: Zofia min K Antagonist (VKA) Therapeutic Range: INR 2 to 3 (Target INR of 2.5)Note: For patients treated with VKA drugs, such as warfarin, the [place] [employer] 2012 Guideline recommends a therapeutic INR range of 2 to 3 (target INR of 2.5). This recommendation includes high-risk patients with antiphospholipid syndrome with previous arterial or venous thromboembolism, current-generation mechanical or bioprosthetic aortic heart valve replacement.Note: Patients with mechanical aortic valve replacement and additional risk factors for thromboembolic events (atrial fibrillation, previous thromboembolism, LV dysfunction, hypercoagulable conditions) or an older generation mechanical AVR (i.e., ball in-Cage) or any mechanical MVR should have a INR therapeutic range of 2.5 to 3.5 (target INR of 3).Suzanne GH, et al. Chest 2012, 141:7S-47SNishimura RA, et al. [facility] 2017, 70: 252-289 Performed By: #### P TTAC, 77957-1 ####[facility] [id number] [place] [address] [place] PT Coag (PPP) [Time] 16.2 s High 9.7-13.0 [facility] Comment on above: Order Comment: Speci men Type: BLOOD SPECIMENOrdering Facility: [facility] Address: [address] [place] [address] Performed By: #### P TTAC, 55591-9 ####[facility] [id number] [place] [address] [place] PTT, ANTICOAGULANT THERAPYon 07-27-2022 aPTT Coag (PPP) [Time] 65.8 s High 23.0-32.4 [facility] Comment on above: Order Comment: Speci men Type: BLOOD SPECIMENOrdering Facility: [facility] Address: [address] [place] [address] Performed By: #### P TTAC ####[facility] [id number] [address] [place] aPTT Coag (PPP) [Time] 38.2 s High 23.0-32.4 [facility] Comment on above: Order Comment: Speci men Type: BLOOD SPECIMENOrdering Facility: [facility] Address: [address] [place] [address] Result Comment: Inte rpret with caution. Sample centrifuged greater than 1 hour from collection time. According to Clinical and Laboratory Standards [place] guidelines, results could be falsely decreased due to heparin neutralization by in vitro release of platelet factor 4. Suggest correlation with clinical findings and redraw if indicated. Performed By: #### 3 4528-0, PTTAC ####[facility] [id number] [address] [place] aPTT Coag (PPP) [Time] 92.0 s High 23.0-32.4 [facility] Comment on above: Order Comment: Speci men Type: BLOOD SPECIMENOrdering Facility: [facility] Address: [address] [place] [address] Performed By: #### 3 4528-0, PTTAC ####[facility] [id number] [address] aPTT Coag (PPP) [Time] 70.6 s High 23.0-32.4 [facility] Comment on above: Order Comment: Speci men Type: BLOOD SPECIMENOrdering Facility: [facility] Address: [address] [place] [address] Performed By: #### P TTAC, 45292-4 ####[facility] [id number] [place] [address] [place] ALLIED HEALTHon 07-26-2022 ALLIED HEALTH Normal [facility] CASE MANAGEMon 07-26-2022 CASE MANAGEM Normal [facility] CBC panel Auto (Bld)on 07-26 Erythrocyte distribution width (RBC) [Ratio] 12.5 % Normal 11.5-15.0 [facility] Comment on above: Order Comment: Speci men Type: BLOOD SPECIMENOrdering Facility: [facility] Address: [address] [place] [id number] Performed By: #### 5 8410-2 ####[facility] [id number] [address] STATES OF [facility] Hematocrit (Bld) [Volume fraction] 39.7 % Normal 39.0-51.0 [facility] Comment on above: Order Comment: Speci men Type: BLOOD SPECIMENOrdering Facility: [facility] Address: [address] [place] [address] Performed By: #### 5 8410-2 ####[facility] [id number] [place] [address] [place] Hemoglobin (Bld) [Mass/Vol] 13.3 g/dL Normal 13.0-17.0 [facility] Comment on above: Order Comment: Speci men Type: BLOOD SPECIMENOrdering Facility: [facility] Address: [address] [place] [address] Performed By: #### 5 8410-2 ####[facility] [id number] [place] [address] [place] MCH (RBC) [Entitic mass] 28.2 pg Normal 26.0-34.0 [facility] Comment on above: Order Comment: Speci men Type: BLOOD SPECIMENOrdering Facility: [facility] Address: [address] [place] [address] Performed By: #### 5 8410-2 ####[facility] [id number] [address] [place] [facility] MCHC (RBC) [Mass/Vol] 33.5 g/dL Normal 30.5-36.0 [facility] Comment on above: Order Comment: Speci men Type: BLOOD SPECIMENOrdering Facility: [facility] Address: [address] [place] [address] Performed By: #### 5 8410-2 ####[facility] [id number] [address] [place] MCV (RBC) [Entitic vol] 84.1 fL Normal 80.0-100.0 [facility] Comment on above: Order Comment: Speci men Type: BLOOD SPECIMENOrdering Facility: [facility] Address: [address] [place] [address] Performed By: #### 5 8410-2 ####[facility] [id number] [place] [address] [place] Nucleated RBC (Bld) [#/Vol] 10*3/uL Normal <0.01 [facility] Comment on above: Order Comment: Speci men Type: BLOOD SPECIMENOrdering Facility: [facility] Address: [address] [place] [phone] Performed By: #### 5 8410-2 ####[facility] [id number] [place] [address] [place] Platelet mean volume (Bld) [Entitic vol] 8.7 fL Low 9.0-12.7 [facility] Comment on above: Order Comment: Speci men Type: BLOOD SPECIMENOrdering Facility: [facility] Address: [address] [place] [phone] Performed By: #### 5 8410-2 ####[facility] [id number] [place] [address] [place] Platelets (Bld) [#/Vol] 259 10*3/uL Normal 150-400 [facility] Comment on above: Order Comment: Speci men Type: BLOOD SPECIMENOrdering Facility: [facility] Address: [address] [place] [phone] Performed By: #### 5 8410-2 ####[facility] [id number] [place] [address] [place] RBC (Bld) [#/Vol] 4.72 10*6/uL Normal 4.20-6.00 [facility] Comment on above: Order Comment: Speci men Type: BLOOD SPECIMENOrdering Facility: [facility] Address: [address] [place] [phone] Performed By: #### 5 8410-2 ####[facility] [id number] [place] [address] [place] WBC (Bld) [#/Vol] 10.36 10*3/uL Normal 3.70-11.00 [facility] Comment on above: Order Comment: Speci men Type: BLOOD SPECIMENOrdering Facility: [facility] Address: [address] Performed By: #### 5 8410-2 ####[facility] [id number] [place] [address] [place] CONSULTon 07-26-2022 CONSULT Normal [facility] metabolic 2000 panelon 07-26-2022 Albumin [Mass/Vol] 4.5 g/dL Normal 3.9-4.9 [facility] Comment on above: Order Comment: Speci men Type: BLOOD SPECIMENOrdering Facility: [facility] Address: [address] Performed By: #### 2 4323-8 ####[facility] [id number] [place] [address] [place] ALP [Catalytic activity/Vol] 50 U/L Normal 38-113 [facility] Comment on above: Order Comment: Speci men Type: BLOOD SPECIMENOrdering Facility: [facility] Address: [address] Performed By: #### 2 4323-8 ####[facility] [id number] [place] [address] [place] ALT [Catalytic activity/Vol] 48 U/L Normal 10-54 [facility] Comment on above: Order Comment: Speci men Type: BLOOD SPECIMENOrdering Facility: [facility] Address: [address] [place] [address] Performed By: #### 2 4323-8 ####[facility] [id number] [place] [address] [place] Anion gap [Moles/Vol] 11 mmol/L Normal 9-18 [facility] Comment on above: Order Comment: Speci men Type: BLOOD SPECIMENOrdering Facility: [facility] Address: [address] Performed By: #### 2 4323-8 ####[facility] [id number] [place] [address] [place] AST [Catalytic activity/Vol] 34 U/L Normal 14-40 [facility] Comment on above: Order Comment: Speci men Type: BLOOD SPECIMENOrdering Facility: [facility] Address: [address] [place] [phone] Performed By: #### 2 4323-8 ####[facility] [id number] [place] [address] [place] Bilirubin [Mass/Vol] 0.6 mg/dL Normal 0.2-1.3 [facility] Comment on above: Order Comment: Speci men Type: BLOOD SPECIMENOrdering Facility: [facility] Address: [address] [place] [phone] Performed By: #### 2 4323-8 ####[facility] [id number] [place] [address] [place] Calcium [Mass/Vol] 9.8 mg/dL Normal 8.5-10.2 [facility] Comment on above: Order Comment: Speci men Type: BLOOD SPECIMENOrdering Facility: [facility] Address: [address] [place] [phone] Performed By: #### 2 4323-8 ####[facility] [id number] [place] [address] [place] Chloride [Moles/Vol] 103 mmol/L Normal 97-105 [facility] Comment on above: Order Comment: Speci men Type: BLOOD SPECIMENOrdering Facility: [facility] Address: [address] [place] [address] Performed By: #### 2 4323-8 ####[facility] [id number] [place] [address] [place] CO2 [Moles/Vol] 25 mmol/L Normal 22-30 [facility] Comment on above: Order Comment: Speci men Type: BLOOD SPECIMENOrdering Facility: [facility] Address: [address] [place] [address] Performed By: #### 2 4323-8 ####[facility] [id number] [place] [address] [place] Creatinine [Mass/Vol] 0.98 mg/dL Normal 0.73-1.22 [facility] Comment on above: Order Comment: Speci men Type: BLOOD SPECIMENOrdering Facility: [facility] Address: [address] [place] [address] Performed By: #### 2 4323-8 ####[facility] [id number] [place] [address] [place] ESTIMATED GLOMERULAR FILTRATION RATE 96 mL/min/1.73m??? Normal >=60 [facility] Comment on above: Order Comment: Speci men Type: BLOOD SPECIMENOrdering Facility: [facility] Address: [address] [place] [address] Result Comment: Lucina mated Glomerular Filtration Rate (eGFR) is calculated using the 2020 CKD-EPI creatinine equation. This equation utilizes serum creatinine, sex, and age as parameters. The creatinine assay has traceable calibration to isotope dilution-mass spectrometry. Refer to KDIGO guidelines for clinical interpretation. In patients with unstable renal function, e.g. those with acute kidney injury, the eGFR may not accurately reflect actual GFR. Performed By: #### 2 4323-8 ####[facility] [id number] [place] [address] [place] Glucose [Mass/Vol] 101 mg/dL High 74-99 [facility] Comment on above: Order Comment: Speci men Type: BLOOD SPECIMENOrdering Facility: [facility] Address: [address] [place] [address] Result Comment: The [place] Diabetes Association (ADA) provides guidance for cutoff values for fasting glucose and random glucose. The ADA defines fasting as no caloric intake for at least 8 hours. Fasting plasma glucose results between 100 to 125 mg/dL indicate increased risk for diabetes (prediabetes).Fasting plasma glucose results greater than or equal to 126 mg/dL meet the criteria for diagnosis of diabetes. In the absence of unequivocal hyperglycemia, results should be confirmed by repeat testing. In a patient with classic symptoms of hyperglycemia or hyperglycemic crisis, random plasma glucose results greater than or equal to 200 mg/dL meet the criteria for diagnosis of diabetes.Reference: Standards of Medical Care in Diabetes 2016, [place] [employer]. Diabetes Care. 2016.39(Suppl 1). Performed By: #### 2 4323-8 ####[facility] [id number] [place] [address] [place] Potassium [Moles/Vol] 4.6 mmol/L Normal 3.7-5.1 [facility] Comment on above: Order Comment: Speci men Type: BLOOD SPECIMENOrdering Facility: [facility] Address: [address] [place] [address] Performed By: #### 2 4323-8 ####[facility] [id number] [place] [address] [place] Protein [Mass/Vol] 7.5 g/dL Normal 6.3-8.0 [facility] Comment on above: Order Comment: Speci men Type: BLOOD SPECIMENOrdering Facility: [facility] Address: [address] [place] [address] Performed By: #### 2 4323-8 ####[facility] [id number] [place] [address] [place] Sodium [Moles/Vol] 139 mmol/L Normal 136-144 [facility] Comment on above: Order Comment: Speci men Type: BLOOD SPECIMENOrdering Facility: [facility] Address: [address] [place] [address] Performed By: #### 2 4323-8 ####[facility] [id number] [place] [address] [place] Urea nitrogen [Mass/Vol] 22 mg/dL Normal 9-24 [facility] Comment on above: Order Comment: Noah schmidt Type: BLOOD SPECIMENOrdering Facility: [facility] Address: [address] [place] [address] Performed By: #### 2 4323-8 ####[facility] [id number] [address] [place] PT panel Coag (PPP)on 2022 INR Coag (PPP) [Relative time] 1.4 {INR} High 0.9-1.3 [facility] Comment on above: Order Comment: Noah schmidt Type: BLOOD SPECIMENOrdering Facility: [facility] Address: [address] [place] [address] Result Comment: Zofia min K Antagonist (VKA) Therapeutic Range: INR 2 to 3 (Target INR of 2.5)Note: For patients treated with VKA drugs, such as warfarin, the [place] [employer] 2012 Guideline recommends a therapeutic INR range of 2 to 3 (target INR of 2.5). This recommendation includes high-risk patients with antiphospholipid syndrome with previous arterial or venous thromboembolism, current-generation mechanical or bioprosthetic aortic heart valve replacement.Note: Patients with mechanical aortic valve replacement and additional risk factors for thromboembolic events (atrial fibrillation, previous thromboembolism, LV dysfunction, hypercoagulable conditions) or an older generation mechanical AVR (i.e., ball in-Cage) or any mechanical MVR should have a INR therapeutic range of 2.5 to 3.5 (target INR of 3).Suzanne GH, et al. Chest 2012, 141:7S-47SNishimericka RA, et al. JACC 2017, 70: 252-289 Performed By: #### 3 4528-0, PTTAC ####[facility] [id number] [place] [address] [place] PT Coag (PPP) [Time] 14.7 s High 9.7-13.0 [facility] Comment on above: Order Comment: Speci men Type: BLOOD SPECIMENOrdering Facility: [facility] Address: [address] [place] [address] Performed By: #### 3 4528-0, PTTAC ####[facility] [id number] [place] [address] [place] INR Coag (PPP) [Relative time] 1.4 {INR} High 0.9-1.3 [facility] Comment on above: Order Comment: Speci men Type: BLOOD SPECIMENOrdering Facility: [facility] Address: [address] [address] Result Comment: Zofia min K Antagonist (VKA) Therapeutic Range: INR 2 to 3 (Target INR of 2.5)Note: For patients treated with VKA drugs, such as warfarin, the [place] [employer] 2012 Guideline recommends a therapeutic INR range of 2 to 3 (target INR of 2.5). This recommendation includes high-risk patients with antiphospholipid syndrome with previous arterial or venous thromboembolism, current-generation mechanical or bioprosthetic aortic heart valve replacement.Note: Patients with mechanical aortic valve replacement and additional risk factors for thromboembolic events (atrial fibrillation, previous thromboembolism, LV dysfunction, hypercoagulable conditions) or an older generation mechanical AVR (i.e., ball in-Cage) or any mechanical MVR should have a INR therapeutic range of 2.5 to 3.5 (target INR of 3).Suzanne GH, et al. Chest 2012, 141:7S-47SNishimura RA, et al. [facility] 2017, 70: 252-289 Performed By: #### P TTAC, 02137-9 ####[facility] [id number] [place] [address] [place] PT Coag (PPP) [Time] 13.9 s High 9.7-13.0 [facility] Comment on above: Order Comment: Speci men Type: BLOOD SPECIMENOrdering Facility: [facility] Address: [address] [address] Performed By: #### P TTA, 63653-7 ####[facility] [id number] [place] [address] [place] PTT, ANTICOAGULANT THERAPYon 07-26-2022 aPTT Coag (PPP) [Time] 68.0 s High 23.0-32.4 [facility] Comment on above: Order Comment: Speci men Type: BLOOD SPECIMENOrdering Facility: [facility] Address: [address] [place] [address] Performed By: #### P TTAC ####[facility] [id number] [place] [address] [place] aPTT Coag (PPP) [Time] 56.5 s High 23.0-32.4 [facility] Comment on above: Order Comment: Speci men Type: BLOOD SPECIMENOrdering Facility: [facility] Address: [address] [place] [address] Performed By: #### 3 4528-0, PTTAC ####[facility] [id number] [place] [address] [place] aPTT Coag (PPP) [Time] 41.3 s High 23.0-32.4 [facility] Comment on above: Order Comment: Speci men Type: BLOOD SPECIMENOrdering Facility: [facility] Address: [address] [place] [address] Performed By: #### P TTAC, 67990-7 ####[facility] [id number] [place] [address] [place] THERAPY NTon 07-26-2022 THERAPY NT Normal [facility] CBC panel Auto (Bld)on 07-25 Erythrocyte distribution width (RBC) [Ratio] 12.6 % Normal 11.5-15.0 [facility] Comment on above: Order Comment: Speci men Type: BLOOD SPECIMENOrdering Facility: [facility] Address: [address] [place] [address] Performed By: #### 5 8410-2 ####[facility] [id number] [place] [address] [place] Hematocrit (Bld) [Volume fraction] 38.2 % Low 39.0-51.0 [facility] Comment on above: Order Comment: Speci men Type: BLOOD SPECIMENOrdering Facility: [facility] Address: [address] [place] [address] Performed By: #### 5 8410-2 ####[facility] [id number] [place] [address] [place] Hemoglobin (Bld) [Mass/Vol] 13.1 g/dL Normal 13.0-17.0 [facility] Comment on above: Order Comment: Speci men Type: BLOOD SPECIMENOrdering Facility: [facility] Address: [address] [place] [address] Performed By: #### 5 8410-2 ####[facility] [id number] [address] MCH (RBC) [Entitic mass] 28.7 pg Normal 26.0-34.0 [facility] Comment on above: Order Comment: Speci men Type: BLOOD SPECIMENOrdering Facility: [facility] Address: [address] [place] [address] Performed By: #### 5 8410-2 ####[facility] [id number] [address] [place] MCHC (RBC) [Mass/Vol] 34.3 g/dL Normal 30.5-36.0 [facility] Comment on above: Order Comment: Speci men Type: BLOOD SPECIMENOrdering Facility: [facility] Address: [address] [place] [address] Performed By: #### 5 8410-2 ####[facility] [id number] [address] [facility] MCV (RBC) [Entitic vol] 83.6 fL Normal 80.0-100.0 [facility] Comment on above: Order Comment: Speci men Type: BLOOD SPECIMENOrdering Facility: [facility] Address: [address] [place] [id number] Performed By: #### 5 8410-2 ####[facility] [id number] [place] [address] [place] Nucleated RBC (Bld) [#/Vol] 10*3/uL Normal <0.01 [facility] Comment on above: Order Comment: Speci men Type: BLOOD SPECIMENOrdering Facility: [facility] Address: [address] [place] [phone] Performed By: #### 5 8410-2 ####[facility] [id number] [place] [address] [place] Platelet mean volume (Bld) [Entitic vol] 9.1 fL Normal 9.0-12.7 [facility] Comment on above: Order Comment: Speci men Type: BLOOD SPECIMENOrdering Facility: [facility] Address: [address] [place] [phone] Performed By: #### 5 8410-2 ####[facility] [id number] [place] [address] [place] Platelets (Bld) [#/Vol] 281 10*3/uL Normal 150-400 [facility] Comment on above: Order Comment: Speci men Type: BLOOD SPECIMENOrdering Facility: [facility] Address: [address] [place] [id number] Performed By: #### 5 8410-2 ####[facility] [id number] [place] [address] [place] RBC (Bld) [#/Vol] 4.57 10*6/uL Normal 4.20-6.00 [facility] Comment on above: Order Comment: Speci men Type: BLOOD SPECIMENOrdering Facility: [facility] Address: [address] [address] Performed By: #### 5 8410-2 ####[facility] [id number] [place] [address] [place] WBC (Bld) [#/Vol] 9.66 10*3/uL Normal 3.70-11.00 [facility] Comment on above: Order Comment: Speci men Type: BLOOD SPECIMENOrdering Facility: [facility] Address: [address] [place] [address] Performed By: #### 5 8410-2 ####[facility] [id number] [place] [address] [place] [facility] Comprehensive metabolic 2000 panelon 07-25-2022 Albumin [Mass/Vol] 3.8 g/dL Low 3.9-4.9 [facility] Comment on above: Order Comment: Speci men Type: BLOOD SPECIMENOrdering Facility: [facility] Address: [address] [place] [address] Performed By: #### 2 4323-8, 46700-5 ####[facility] [id number] [address] [place] ALP [Catalytic activity/Vol] 56 U/L Normal 38-113 [facility] Comment on above: Order Comment: Speci men Type: BLOOD SPECIMENOrdering Facility: [facility] Address: [address] Performed By: #### 2 4323-8, 36396-7 ####[facility] [id number] [address] [place] ALT [Catalytic activity/Vol] 41 U/L Normal 10-54 [facility] Comment on above: Order Comment: Speci men Type: BLOOD SPECIMENOrdering Facility: [facility] Address: [address] [place] [address] Performed By: #### 2 8, ####[facility] [id number] [place] [address] [place] Anion gap [Moles/Vol] 15 mmol/L Normal 9-18 [facility] Comment on above: Order Comment: Speci men Type: BLOOD SPECIMENOrdering Facility: [facility] Address: [address] Performed By: #### 2 4323-02, ####[facility] [id number] [place] [address] [place] AST [Catalytic activity/Vol] 32 U/L Normal 14-40 [facility] Comment on above: Order Comment: Speci men Type: BLOOD SPECIMENOrdering Facility: [facility] Address: [address] Performed By: #### 2 4323-02, ####[facility] [id number] [place] [address] [place] Bilirubin [Mass/Vol] 0.5 mg/dL Normal 0.2-1.3 [facility] Comment on above: Order Comment: Speci men Type: BLOOD SPECIMENOrdering Facility: [facility] Address: [address] Performed By: #### 2 4323-02, ####[facility] [id number] [place] [address] [place] Calcium [Mass/Vol] 9.7 mg/dL Normal 8.5-10.2 [facility] Comment on above: Order Comment: Speci men Type: BLOOD SPECIMENOrdering Facility: [facility] Address: [address] Performed By: #### 2 4323-02, ####[facility] [id number] [place] [address] [place] Chloride [Moles/Vol] 101 mmol/L Normal 97-105 [facility] Comment on above: Order Comment: Speci men Type: BLOOD SPECIMENOrdering Facility: [facility] Address: [address] [place] [address] Performed By: #### 2 4323-8, ####[facility] [id number] [place] [address] [place] CO2 [Moles/Vol] 22 mmol/L Normal 22-30 [facility] Comment on above: Order Comment: Speci men Type: BLOOD SPECIMENOrdering Facility: [facility] Address: [address] [place] [place] [address] Performed By: #### 2 4323-8, 87531-7 ####[facility] [id number] [address] [place] Creatinine [Mass/Vol] 1.07 mg/dL Normal 0.73-1.22 [facility] Comment on above: Order Comment: Speci men Type: BLOOD SPECIMENOrdering Facility: [facility] Address: [address] [place] [address] Performed By: #### 2 4323-8, 40026-4 ####[facility] [id number] [address] STATES OF [facility] ESTIMATED GLOMERULAR FILTRATION RATE 86 mL/min/1.73m??? Normal >=60 [facility] Comment on above: Order Comment: Speci men Type: BLOOD SPECIMENOrdering Facility: [facility] Address: [address] [place] [address] Result Comment: Lucina mated Glomerular Filtration Rate (eGFR) is calculated using the 2020 CKD-EPI creatinine equation. This equation utilizes serum creatinine, sex, and age as parameters. The creatinine assay has traceable calibration to isotope dilution-mass spectrometry. Refer to KDIGO guidelines for clinical interpretation. In patients with unstable renal function, e.g. those with acute kidney injury, the eGFR may not accurately reflect actual GFR. Performed By: #### 2 4323-8, ####[facility] [id number] [address] [address] [place] Glucose [Mass/Vol] 107 mg/dL High 74-99 [facility] Comment on above: Order Comment: Speci men Type: BLOOD SPECIMENOrdering Facility: [facility] Address: [address] [place] [address] Result Comment: The [place] [employer] (ADA) provides guidance for cutoff values for fasting glucose and random glucose. The ADA defines fasting as no caloric intake for at least 8 hours. Fasting plasma glucose results between 100 to 125 mg/dL indicate increased risk for diabetes (prediabetes).Fasting plasma glucose results greater than or equal to 126 mg/dL meet the criteria for diagnosis of diabetes. In the absence of unequivocal hyperglycemia, results should be confirmed by repeat testing. In a patient with classic symptoms of hyperglycemia or hyperglycemic crisis, random plasma glucose results greater than or equal to 200 mg/dL meet the criteria for diagnosis of diabetes.Reference: Standards of Medical Care in Diabetes 2016, [place] [employer]. Diabetes Care. 2016.39(Suppl 1). Performed By: #### 2 4323-02, ####[facility] [id number] [address] [address] [place] Potassium [Moles/Vol] 4.6 mmol/L Normal 3.7-5.1 [facility] Comment on above: Order Comment: Speci men Type: BLOOD SPECIMENOrdering Facility: [facility] Address: [address] [place] [address] Performed By: #### 2 43209-28, ####[facility] [id number] [address] [address] [place] Protein [Mass/Vol] 7.1 g/dL Normal 6.3-8.0 [facility] Comment on above: Order Comment: Speci men Type: BLOOD SPECIMENOrdering Facility: [facility] Address: [address] Performed By: #### 2 4323-8, ####[facility] [id number] [place] [address] [place] Sodium [Moles/Vol] 138 mmol/L Normal 136-144 [facility] Comment on above: Order Comment: Speci men Type: BLOOD SPECIMENOrdering Facility: [facility] Address: [address] [place] [phone] Performed By: #### 2 4323-8, ####[facility] [id number] [place] [address] [place] Urea nitrogen [Mass/Vol] 28 mg/dL High 9-24 [facility] Comment on above: Order Comment: Speci men Type: BLOOD SPECIMENOrdering Facility: [facility] Address: [address] [place] [address] Performed By: #### 2 4323-8, ####[facility] [id number] [place] [address] [place] ECG COMPLETEon 07-25-2022 ECG COMPLETE Normal [facility] Magnesium SerPl-mCncon 07-25 Magnesium [Mass/Vol] 2.2 mg/dL Normal 1.7-2.3 [facility] Comment on above: Order Comment: Speci men Type: BLOOD SPECIMENOrdering Facility: [facility] Address: [address] [place] [phone] Performed By: #### 2 4323-8, ####[facility] [id number] [place] [address] [place] NUTRITIONon 07-25-2022 NUTRITION Normal [facility] PT panel Coag (PPP)on 2022 INR Coag (PPP) [Relative time] 1.3 {INR} Normal 0.9-1.3 [facility] Comment on above: Order Comment: Noah schmidt Type: BLOOD SPECIMENOrdering Facility: [facility] Address: [address] [place], [place] [address] Result Comment: Zofia min K Antagonist (VKA) Therapeutic Range: INR 2 to 3 (Target INR of 2.5)Note: For patients treated with VKA drugs, such as warfarin, the [place] [employer] 2012 Guideline recommends a therapeutic INR range of 2 to 3 (target INR of 2.5). This recommendation includes high-risk patients with antiphospholipid syndrome with previous arterial or venous thromboembolism, current-generation mechanical or bioprosthetic aortic heart valve replacement.Note: Patients with mechanical aortic valve replacement and additional risk factors for thromboembolic events (atrial fibrillation, previous thromboembolism, LV dysfunction, hypercoagulable conditions) or an older generation mechanical AVR (i.e., ball in-Cage) or any mechanical MVR should have a INR therapeutic range of 2.5 to 3.5 (target INR of 3).Suzanne GH, et al. Chest 2012, 141:7S-47SNishimericka RA, et al. [facility] 2017, 70: 252-289 Performed By: #### 3 4528-0, PTTAC ####[facility] [id number] [place] [address] [place] PT Coag (PPP) [Time] 13.4 s High 9.7-13.0 [facility] Comment on above: Order Comment: Noah schmidt Type: BLOOD SPECIMENOrdering Facility: [facility] Address: [address] [place] [address] Performed By: #### 3 4528-0, PTTAC ####[facility] [id number] [place] [address] [place] PTT, ANTICOAGULANT THERAPYon 07-25-2022 aPTT Coag (PPP) [Time] 66.3 s High 23.0-32.4 [facility] Comment on above: Order Comment: Noah schmidt Type: BLOOD SPECIMENOrdering Facility: [facility] Address: [address] Performed By: #### 3 4528-0, PTTAC ####[facility] [id number] [address] [place] CBC panel Auto (Bld)on 07-24 Erythrocyte distribution width (RBC) [Ratio] 12.5 % Normal 11.5-15.0 [facility] Comment on above: Order Comment: Speci men Type: BLOOD SPECIMENOrdering Facility: [facility] Address: [address] [place] [address] Performed By: #### 5 8410-2 ####[facility] [id number] [address] [place] Hematocrit (Bld) [Volume fraction] 37.4 % Low 39.0-51.0 [facility] Comment on above: Order Comment: Speci men Type: BLOOD SPECIMENOrdering Facility: [facility] Address: [address] Performed By: #### 5 8410-2 ####[facility] [id number] [address] [place] Hemoglobin (Bld) [Mass/Vol] 13.0 g/dL Normal 13.0-17.0 [facility] Comment on above: Order Comment: Speci men Type: BLOOD SPECIMENOrdering Facility: [facility] Address: [address] Performed By: #### 5 8410-2 ####[facility] [id number] [address] [place] MCH (RBC) [Entitic mass] 28.9 pg Normal 26.0-34.0 [facility] Comment on above: Order Comment: Speci men Type: BLOOD SPECIMENOrdering Facility: [facility] Address: [address] [place] [phone] Performed By: #### 5 8410-2 ####[facility] [id number] [address] [place] MCHC (RBC) [Mass/Vol] 34.8 g/dL Normal 30.5-36.0 [facility] Comment on above: Order Comment: Speci men Type: BLOOD SPECIMENOrdering Facility: [facility] Address: [address] [place] [phone] Performed By: #### 5 8410-2 ####[facility] [id number] [place] [address] [place] MCV (RBC) [Entitic vol] 83.1 fL Normal 80.0-100.0 [facility] Comment on above: Order Comment: Speci men Type: BLOOD SPECIMENOrdering Facility: [facility] Address: [address] [place] [phone] Performed By: #### 5 8410-2 ####[facility] [id number] [address] [place] Nucleated RBC (Bld) [#/Vol] 10*3/uL Normal <0.01 [facility] Comment on above: Order Comment: Speci men Type: BLOOD SPECIMENOrdering Facility: [facility] Address: [address] [place] [phone] Performed By: #### 5 8410-2 ####[facility] [id number] [address] [place] Platelet mean volume (Bld) [Entitic vol] 9.3 fL Normal 9.0-12.7 [facility] Comment on above: Order Comment: Speci men Type: BLOOD SPECIMENOrdering Facility: [facility] Address: [address] [place] [phone] Performed By: #### 5 8410-2 ####[facility] [id number] [address] [place] Platelets (Bld) [#/Vol] 277 10*3/uL Normal 150-400 [facility] Comment on above: Order Comment: Speci men Type: BLOOD SPECIMENOrdering Facility: [facility] Address: [address] [place] [phone] Performed By: #### 5 8410-2 ####[facility] [id number] [place] [address] [place] RBC (Bld) [#/Vol] 4.50 10*6/uL Normal 4.20-6.00 [facility] Comment on above: Order Comment: Speci men Type: BLOOD SPECIMENOrdering Facility: [facility] Address: [address] [place] [phone] Performed By: #### 5 8410-2 ####[facility] [id number] [place] [address] [place] WBC (Bld) [#/Vol] 9.37 10*3/uL Normal 3.70-11.00 [facility] Comment on above: Order Comment: Speci men Type: BLOOD SPECIMENOrdering Facility: [facility] Address: [address] [place] [address] Performed By: #### 5 8410-2 ####[facility] [id number] [place] [address] [place] Comprehensive metabolic 2000 panelon 07-24-2022 Albumin [Mass/Vol] 4.1 g/dL Normal 3.9-4.9 [facility] Comment on above: Order Comment: Speci men Type: BLOOD SPECIMENOrdering Facility: [facility] Address: [address] [place] [phone] Performed By: #### 2 4323-8, 15315-9 ####[facility] [id number] [place] [address] [place] ALP [Catalytic activity/Vol] 51 U/L Normal 38-113 [facility] Comment on above: Order Comment: Speci men Type: BLOOD SPECIMENOrdering Facility: [facility] Address: [address] [place] [address] Performed By: #### 2 432-8, ####[facility] [id number] [place] [address] [place] ALT [Catalytic activity/Vol] 35 U/L Normal 10-54 [facility] Comment on above: Order Comment: Speci men Type: BLOOD SPECIMENOrdering Facility: [facility] Address: [address] Performed By: #### 2 4322-8, ####[facility] [id number] [place] [address] [place] Anion gap [Moles/Vol] 11 mmol/L Normal 9-18 [facility] Comment on above: Order Comment: Speci men Type: BLOOD SPECIMENOrdering Facility: [facility] Address: [address] Performed By: #### 2 4322-8, ####[facility] [id number] [place] [address] [place] AST [Catalytic activity/Vol] 34 U/L Normal 14-40 [facility] Comment on above: Order Comment: Speci men Type: BLOOD SPECIMENOrdering Facility: [facility] Address: [address] Performed By: #### 2 4323-8, ####[facility] [id number] [place] [address] [place] Bilirubin [Mass/Vol] 0.8 mg/dL Normal 0.2-1.3 [facility] Comment on above: Order Comment: Speci men Type: BLOOD SPECIMENOrdering Facility: [facility] Address: [address] [place] [id number] Performed By: #### 2 432-8, ####[facility] [id number] [place] [address] [place] Calcium [Mass/Vol] 9.5 mg/dL Normal 8.5-10.2 [facility] Comment on above: Order Comment: Speci men Type: BLOOD SPECIMENOrdering Facility: [facility] Address: [address] [place] [address] Performed By: #### 2 4323-02, ####[facility] [id number] [place] [address] [place] Chloride [Moles/Vol] 100 mmol/L Normal 97-105 [facility] Comment on above: Order Comment: Speci men Type: BLOOD SPECIMENOrdering Facility: [facility] Address: [address] Performed By: #### 2 4323-02, ####[facility] [id number] [place] [address] [place] CO2 [Moles/Vol] 27 mmol/L Normal 22-30 [facility] Comment on above: Order Comment: Speci men Type: BLOOD SPECIMENOrdering Facility: [facility] Address: [address] [place] [address] Performed By: #### 2 4323-02, ####[facility] [id number] [place] [id number] [place] Creatinine [Mass/Vol] 0.98 mg/dL Normal 0.73-1.22 [facility] Comment on above: Order Comment: Speci men Type: BLOOD SPECIMENOrdering Facility: [facility] Address: [address] Performed By: #### 2 4323-02, ####[facility] [id number] [place] [address] [place] ESTIMATED GLOMERULAR FILTRATION RATE 96 mL/min/1.73m??? Normal >=60 [facility] Comment on above: Order Comment: Noah schmidt Type: BLOOD SPECIMENOrdering Facility: [facility] Address: [address] [place], [place] [address] Result Comment: Lucina mated Glomerular Filtration Rate (eGFR) is calculated using the 2020 CKD-EPI creatinine equation. This equation utilizes serum creatinine, sex, and age as parameters. The creatinine assay has traceable calibration to isotope dilution-mass spectrometry. Refer to KDIGO guidelines for clinical interpretation. In patients with unstable renal function, e.g. those with acute kidney injury, the eGFR may not accurately reflect actual GFR. Performed By: #### 2 4323-8, 27819-7 ####[facility] [id number] [place] [address] [place] Glucose [Mass/Vol] 104 mg/dL High 74-99 [facility] Comment on above: Order Comment: Noah schmidt Type: BLOOD SPECIMENOrdering Facility: [facility] Address: [address] [place] [address] Result Comment: The [place] [employer] (ADA) provides guidance for cutoff values for fasting glucose and random glucose. The ADA defines fasting as no caloric intake for at least 8 hours. Fasting plasma glucose results between 100 to 125 mg/dL indicate increased risk for diabetes (prediabetes).Fasting plasma glucose results greater than or equal to 126 mg/dL meet the criteria for diagnosis of diabetes. In the absence of unequivocal hyperglycemia, results should be confirmed by repeat testing. In a patient with classic symptoms of hyperglycemia or hyperglycemic crisis, random plasma glucose results greater than or equal to 200 mg/dL meet the criteria for diagnosis of diabetes.Reference: Standards of Medical Care in Diabetes 2016, [place] [employer]. Diabetes Care. 2016.39(Suppl 1). Performed By: #### 2 4323-8, 92048-0 ####[facility] [id number] [place] [id number] [place] Potassium [Moles/Vol] 4.5 mmol/L Normal 3.7-5.1 [facility] Comment on above: Order Comment: Speci men Type: BLOOD SPECIMENOrdering Facility: [facility] Address: [address] [place] [address] Performed By: #### 2 4328, ####[facility] [id number] [place] [address] [place] Protein [Mass/Vol] 7.2 g/dL Normal 6.3-8.0 [facility] Comment on above: Order Comment: Speci men Type: BLOOD SPECIMENOrdering Facility: [facility] Address: [address] [place] [address] Performed By: #### 2 4328, ####[facility] [id number] [place] [address] [place] Sodium [Moles/Vol] 138 mmol/L Normal 136-144 [facility] Comment on above: Order Comment: Speci men Type: BLOOD SPECIMENOrdering Facility: [facility] Address: [address] [place] [address] Performed By: #### 2 4323-02, ####[facility] [id number] [place] [address] [place] Urea nitrogen [Mass/Vol] 27 mg/dL High 9-24 [facility] Comment on above: Order Comment: Speci men Type: BLOOD SPECIMENOrdering Facility: [facility] Address: [address] [place] [phone] Performed By: #### 2 8, ####[facility] [id number] [place] [address] [place] ECG COMPLETEon 07-24-2022 ECG COMPLETE Normal [facility] Magnesium SerPl-mCncon 07-24 Magnesium [Mass/Vol] 2.3 mg/dL Normal 1.7-2.3 [facility] Comment on above: Order Comment: Specmarcus schmidt Type: BLOOD SPECIMENOrdering Facility: [facility] Address: [address] [place] [address] Performed By: #### 2 4323-8, 53617-2 ####[facility] [id number] [place] [address] [place] PT panel Coag (PPP)on 2022 INR Coag (PPP) [Relative time] 1.2 {INR} Normal 0.9-1.3 [facility] Comment on above: Order Comment: Noah schmidt Type: BLOOD SPECIMENOrdering Facility: [facility] Address: [address] [place] [address] Result Comment: Zofia min K Antagonist (VKA) Therapeutic Range: INR 2 to 3 (Target INR of 2.5)Note: For patients treated with VKA drugs, such as warfarin, the [place] [employer] 2012 Guideline recommends a therapeutic INR range of 2 to 3 (target INR of 2.5). This recommendation includes high-risk patients with antiphospholipid syndrome with previous arterial or venous thromboembolism, current-generation mechanical or bioprosthetic aortic heart valve replacement.Note: Patients with mechanical aortic valve replacement and additional risk factors for thromboembolic events (atrial fibrillation, previous thromboembolism, LV dysfunction, hypercoagulable conditions) or an older generation mechanical AVR (i.e., ball in-Cage) or any mechanical MVR should have a INR therapeutic range of 2.5 to 3.5 (target INR of 3).Suzanne TRUJILLO, et al. Chest 2012, 141:7S-47SDouglasimericka RA, et al. [facility] 2017, 70: 252-289 Performed By: #### 3 4528-0, PTTAC ####[facility] [id number] [place] [address] [place] PT Coag (PPP) [Time] 12.3 s Normal 9.7-13.0 [facility] Comment on above: Order Comment: Noah schmidt Type: BLOOD SPECIMENOrdering Facility: [facility] Address: [address] Performed By: #### 3 4528-0, PTTAC ####[facility] [id number] [place] [address] [place] PTT, ANTICOAGULANT THERAPYon 07-24-2022 aPTT Coag (PPP) [Time] 51.4 s High 23.0-32.4 [facility] Comment on above: Order Comment: Speci men Type: BLOOD SPECIMENOrdering Facility: [facility] Address: [address] [place] [address] Performed By: #### P TTAC ####[facility] [id number] [address] [place] aPTT Coag (PPP) [Time] 45.7 s High 23.0-32.4 [facility] Comment on above: Order Comment: Speci men Type: BLOOD SPECIMENOrdering Facility: [facility] Address: [address] Performed By: #### P TTAC ####[facility] [id number] [address] [place] aPTT Coag (PPP) [Time] 41.6 s High 23.0-32.4 [facility] Comment on above: Order Comment: Speci men Type: BLOOD SPECIMENOrdering Facility: [facility] Address: [address] Performed By: #### 3 4528-0, PTTAC ####[facility] [id number] [address] [place] aPTT Coag (PPP) [Time] 33.6 s High 23.0-32.4 [facility] Comment on above: Order Comment: Speci men Type: BLOOD SPECIMENOrdering Facility: [facility] Address: [address] Performed By: #### P TTAC ####[facility] [id number] [address] [place] CBC panel Auto (Bld)on 07-23 Erythrocyte distribution width (RBC) [Ratio] 12.9 % Normal 11.5-15.0 [facility] Comment on above: Order Comment: Speci men Type: BLOOD SPECIMENOrdering Facility: [facility] Address: [address] [place] [phone] Performed By: #### 5 8410-2 ####[facility] [id number] [address] [place] Hematocrit (Bld) [Volume fraction] 36.7 % Low 39.0-51.0 [facility] Comment on above: Order Comment: Speci men Type: BLOOD SPECIMENOrdering Facility: [facility] Address: [address] [place] [phone] Performed By: #### 5 8410-2 ####[facility] [id number] [address] [place] Hemoglobin (Bld) [Mass/Vol] 12.2 g/dL Low 13.0-17.0 [facility] Comment on above: Order Comment: Speci men Type: BLOOD SPECIMENOrdering Facility: [facility] Address: [address] [place] [address] Performed By: #### 5 8410-2 ####[facility] [id number] [place] [address] [place] MCH (RBC) [Entitic mass] 28.6 pg Normal 26.0-34.0 [facility] Comment on above: Order Comment: Speci men Type: BLOOD SPECIMENOrdering Facility: [facility] Address: [address] [place] [phone] Performed By: #### 5 8410-2 ####[facility] [id number] [place] [address] [place] MCHC (RBC) [Mass/Vol] 33.2 g/dL Normal 30.5-36.0 [facility] Comment on above: Order Comment: Speci men Type: BLOOD SPECIMENOrdering Facility: [facility] Address: [address] [place] [address] Performed By: #### 5 8410-2 ####[facility] [id number] [address] [place] MCV (RBC) [Entitic vol] 85.9 fL Normal 80.0-100.0 [facility] Comment on above: Order Comment: Speci men Type: BLOOD SPECIMENOrdering Facility: [facility] Address: [address] [place] [address] Performed By: #### 5 8410-2 ####[facility] [id number] [address] [place] Nucleated RBC (Bld) [#/Vol] 10*3/uL Normal <0.01 [facility] Comment on above: Order Comment: Speci men Type: BLOOD SPECIMENOrdering Facility: [facility] Address: [address] [place] [phone] Performed By: #### 5 8410-2 ####[facility] [id number] [place] [address] [place] Platelet mean volume (Bld) [Entitic vol] 9.6 fL Normal 9.0-12.7 [facility] Comment on above: Order Comment: Speci men Type: BLOOD SPECIMENOrdering Facility: [facility] Address: [address] [place] [phone] Performed By: #### 5 8410-2 ####[facility] [id number] [place] [address] [place] Platelets (Bld) [#/Vol] 228 10*3/uL Normal 150-400 [facility] Comment on above: Order Comment: Speci men Type: BLOOD SPECIMENOrdering Facility: [facility] Address: [address] [place] [phone] Performed By: #### 5 8410-2 ####[facility] [id number] [place] [address] [place] RBC (Bld) [#/Vol] 4.27 10*6/uL Normal 4.20-6.00 [facility] [place] Comment on above: Order Comment: Speci men Type: BLOOD SPECIMENOrdering Facility: [facility] Address: [address] [place] [phone] Performed By: #### 5 8410-2 ####[facility] [id number] [place] [address] [place] WBC (Bld) [#/Vol] 8.30 10*3/uL Normal 3.70-11.00 [facility] [place] Comment on above: Order Comment: Speci men Type: BLOOD SPECIMENOrdering Facility: [facility] Address: [address] [place] [phone] Performed By: #### 5 8410-2 ####[facility] [id number] [place] [address] [place] Comprehensive metabolic 2000 panelon 07-23-2022 Albumin [Mass/Vol] 3.8 g/dL Low 3.9-4.9 [facility] Comment on above: Order Comment: Speci men Type: BLOOD SPECIMENOrdering Facility: [facility] Address: [address] [place] [phone] Performed By: #### 2 4323-8, 49370-9 ####[facility] [id number] [place] [address] [place] ALP [Catalytic activity/Vol] 45 U/L Normal 38-113 [facility] Comment on above: Order Comment: Speci men Type: BLOOD SPECIMENOrdering Facility: [facility] Address: [address] Performed By: #### 2 432-8, ####[facility] [id number] [place] [address] [place] ALT [Catalytic activity/Vol] 20 U/L Normal 10-54 [facility] Comment on above: Order Comment: Speci men Type: BLOOD SPECIMENOrdering Facility: [facility] Address: [address] Performed By: #### 2 432-8, ####[facility] [id number] [place] [address] [place] Anion gap [Moles/Vol] 11 mmol/L Normal 9-18 [facility] Comment on above: Order Comment: Speci men Type: BLOOD SPECIMENOrdering Facility: [facility] Address: [address] Performed By: #### 2 8, ####[facility] [id number] [place] [address] [place] AST [Catalytic activity/Vol] 21 U/L Normal 14-40 [facility] Comment on above: Order Comment: Speci men Type: BLOOD SPECIMENOrdering Facility: [facility] Address: [address] Performed By: #### 2 4322-8, ####[facility] [id number] [place] [address] [place] Bilirubin [Mass/Vol] 0.6 mg/dL Normal 0.2-1.3 [facility] Comment on above: Order Comment: Speci men Type: BLOOD SPECIMENOrdering Facility: [facility] Address: [address] Performed By: #### 2 4323-02, ####[facility] [id number] [facility] [place] [address] [place] Calcium [Mass/Vol] 8.9 mg/dL Normal 8.5-10.2 [facility] Comment on above: Order Comment: Speci men Type: BLOOD SPECIMENOrdering Facility: [facility] Address: [address] [place] [phone] Performed By: #### 2 4323-02, ####[facility] [id number] [facility] [place] [address] [place] Chloride [Moles/Vol] 100 mmol/L Normal 97-105 [facility] Comment on above: Order Comment: Speci men Type: BLOOD SPECIMENOrdering Facility: [facility] Address: [address] [place] [address] Performed By: #### 2 4323-02, ####[facility] [id number] [place] [address] [place] CO2 [Moles/Vol] 27 mmol/L Normal 22-30 [facility] Comment on above: Order Comment: Speci men Type: BLOOD SPECIMENOrdering Facility: [facility] Address: [address] [place] [phone] Performed By: #### 2 4323-02, ####[facility] [id number] [place] [address] [place] Creatinine [Mass/Vol] 0.92 mg/dL Normal 0.73-1.22 [facility] Comment on above: Order Comment: Speci men Type: BLOOD SPECIMENOrdering Facility: [facility] Address: [address] [place] [phone] Performed By: #### 2 4328, ####[facility] [id number] [address] [id number] [address] [place] ESTIMATED GLOMERULAR FILTRATION RATE 103 mL/min/1.73m??? Normal >=60 [facility] Comment on above: Order Comment: Noah schmidt Type: BLOOD SPECIMENOrdering Facility: [facility] Address: [address] [place] [address] Result Comment: Lucina mated Glomerular Filtration Rate (eGFR) is calculated using the 2020 CKD-EPI creatinine equation. This equation utilizes serum creatinine, sex, and age as parameters. The creatinine assay has traceable calibration to isotope dilution-mass spectrometry. Refer to KDIGO guidelines for clinical interpretation. In patients with unstable renal function, e.g. those with acute kidney injury, the eGFR may not accurately reflect actual GFR. Performed By: #### 2 4323-8, ####[facility] [id number] [place] [address] [place] Glucose [Mass/Vol] 98 mg/dL Normal 74-99 [facility] Comment on above: Order Comment: Noah schmidt Type: BLOOD SPECIMENOrdering Facility: [facility] Address: [address] [place] [address] Result Comment: The [place] [employer] (ADA) provides guidance for cutoff values for fasting glucose and random glucose. The ADA defines fasting as no caloric intake for at least 8 hours. Fasting plasma glucose results between 100 to 125 mg/dL indicate increased risk for diabetes (prediabetes).Fasting plasma glucose results greater than or equal to 126 mg/dL meet the criteria for diagnosis of diabetes. In the absence of unequivocal hyperglycemia, results should be confirmed by repeat testing. In a patient with classic symptoms of hyperglycemia or hyperglycemic crisis, random plasma glucose results greater than or equal to 200 mg/dL meet the criteria for diagnosis of diabetes.Reference: Standards of Medical Care in Diabetes 2016, [place] [employer]. Diabetes Care. 2016.39(Suppl 1). Performed By: #### 2 4323-8, ####[facility] [id number] [place] [address] [place] Potassium [Moles/Vol] 3.7 mmol/L Normal 3.7-5.1 [facility] Comment on above: Order Comment: Speci men Type: BLOOD SPECIMENOrdering Facility: [facility] Address: [address] Performed By: #### 2 432-8, ####[facility] [id number] [place] [address] [place] Protein [Mass/Vol] 6.9 g/dL Normal 6.3-8.0 [facility] Comment on above: Order Comment: Speci men Type: BLOOD SPECIMENOrdering Facility: [facility] Address: [address] [place] [address] Performed By: #### 2 432-8, ####[facility] [id number] [place] [address] [place] Sodium [Moles/Vol] 138 mmol/L Normal 136-144 [facility] Comment on above: Order Comment: Speci men Type: BLOOD SPECIMENOrdering Facility: [facility] Address: [address] [place] [phone] Performed By: #### 2 8, ####[facility] [id number] [place] [address] [place] Urea nitrogen [Mass/Vol] 29 mg/dL High 9-24 [facility] Comment on above: Order Comment: Speci men Type: BLOOD SPECIMENOrdering Facility: [facility] Address: [address] Performed By: #### 2 4323-8, ####[facility] [id number] [place] [address] [place] ECG COMPLETEon 07-23-2022 ECG COMPLETE Normal [facility] Magnesium SerPl-mCncon 07-23 Magnesium [Mass/Vol] 2.2 mg/dL Normal 1.7-2.3 [facility] Comment on above: Order Comment: Noah schmidt Type: BLOOD SPECIMENOrdering Facility: [facility] Address: [place] [place] [address] Performed By: #### 2 4323-8, 74227-3 ####[facility] [id number] [place] [address] [place] PT panel Coag (PPP)on 2021 INR Coag (PPP) [Relative time] 1.1 {INR} Normal 0.9-1.3 [facility] Comment on above: Order Comment: Noah brayan Type: BLOOD SPECIMENOrdering Facility: [facility] Address: [place] [address] Result Comment: Zofia min K Antagonist (VKA) Therapeutic Range: INR 2 to 3 (Target INR of 2.5)Note: For patients treated with VKA drugs, such as warfarin, the [place] [employer] 2012 Guideline recommends a therapeutic INR range of 2 to 3 (target INR of 2.5). This recommendation includes high-risk patients with antiphospholipid syndrome with previous arterial or venous thromboembolism, current-generation mechanical or bioprosthetic aortic heart valve replacement.Note: Patients with mechanical aortic valve replacement and additional risk factors for thromboembolic events (atrial fibrillation, previous thromboembolism, LV dysfunction, hypercoagulable conditions) or an older generation mechanical AVR (i.e., ball in-Cage) or any mechanical MVR should have a INR therapeutic range of 2.5 to 3.5 (target INR of 3).Suzanne GH, et al. Chest 2012, 141:7S-47SNishimura RA, et al. [facility] 2017, 70: 252-289 Performed By: #### 3 4528-0 ####[facility] [id number] [place] [address] [place] PT Coag (PPP) [Time] 11.7 s Normal 9.7-13.0 [facility] Comment on above: Order Comment: Specmarcus schmidt Type: BLOOD SPECIMENOrdering Facility: [facility] Address: [place] [address] Performed By: #### 3 4528-0 ####[facility] [id number] [place] [address] [place] PTT, ANTICOAGULANT THERAPYon 07-23-2022 aPTT Coag (PPP) [Time] 29.5 s Normal 23.0-32.4 [facility] Comment on above: Order Comment: Speci men Type: BLOOD SPECIMENOrdering Facility: [facility] Address: [address] Performed By: #### P TTAC ####[facility] [id number] [place] [address] [place] ALLIED HEALTHon 07-22-2022 ALLIED HEALTH Normal [facility] CASE MANAGEMon 07-22-2022 CASE MANAGEM Normal [facility] CBC panel Auto (Bld)on 07-22 Erythrocyte distribution width (RBC) [Ratio] 13.0 % Normal 11.5-15.0 [facility] Comment on above: Order Comment: Speci men Type: BLOOD SPECIMENOrdering Facility: [facility] Address: [address] Performed By: #### 5 8410-2 ####[facility] [id number] [place] [address] [place] Hematocrit (Bld) [Volume fraction] 36.5 % Low 39.0-51.0 [facility] Comment on above: Order Comment: Speci men Type: BLOOD SPECIMENOrdering Facility: [facility] Address: [address] Performed By: #### 5 8410-2 ####[facility] [id number] [place] [address] [place] Hemoglobin (Bld) [Mass/Vol] 12.2 g/dL Low 13.0-17.0 [facility] Comment on above: Order Comment: Speci men Type: BLOOD SPECIMENOrdering Facility: [facility] Address: [address] Performed By: #### 5 8410-2 ####[facility] [id number] [address] MCH (RBC) [Entitic mass] 28.7 pg Normal 26.0-34.0 [facility] Comment on above: Order Comment: Speci men Type: BLOOD SPECIMENOrdering Facility: [facility] Address: [address] Performed By: #### 5 8410-2 ####[facility] [id number] [address] [place] MCHC (RBC) [Mass/Vol] 33.4 g/dL Normal 30.5-36.0 [facility] Comment on above: Order Comment: Speci men Type: BLOOD SPECIMENOrdering Facility: [facility] Address: [address] [place] [phone] Performed By: #### 5 8410-2 ####[facility] [id number] [address] STATES [facility] MCV (RBC) [Entitic vol] 85.9 fL Normal 80.0-100.0 [facility] Comment on above: Order Comment: Speci men Type: BLOOD SPECIMENOrdering Facility: [facility] Address: [address] [place] [phone] Performed By: #### 5 8410-2 ####[facility] [id number] [address] [place] Nucleated RBC (Bld) [#/Vol] 10*3/uL Normal <0.01 [facility] Comment on above: Order Comment: Speci men Type: BLOOD SPECIMENOrdering Facility: [facility] Address: [address] [place] [phone] Performed By: #### 5 8410-2 ####[facility] [id number] [place] [address] [place] Platelet mean volume (Bld) [Entitic vol] 10.2 fL Normal 9.0-12.7 [facility] Comment on above: Order Comment: Speci men Type: BLOOD SPECIMENOrdering Facility: [facility] Address: [address] [place] [phone] Performed By: #### 5 8410-2 ####[facility] [id number] [place] [address] [place] Platelets (Bld) [#/Vol] 167 10*3/uL Normal 150-400 [facility] Comment on above: Order Comment: Speci men Type: BLOOD SPECIMENOrdering Facility: [facility] Address: [address] [place] [phone] Performed By: #### 5 8410-2 ####[facility] [id number] [place] [address] [place] RBC (Bld) [#/Vol] 4.25 10*6/uL Normal 4.20-6.00 [facility] [place] Comment on above: Order Comment: Speci men Type: BLOOD SPECIMENOrdering Facility: [facility] Address: [address] [place] [phone] Performed By: #### 5 8410-2 ####[facility] [id number] [place] [address] [place] WBC (Bld) [#/Vol] 10.00 10*3/uL Normal 3.70-11.00 [facility] Comment on above: Order Comment: Speci men Type: BLOOD SPECIMENOrdering Facility: [facility] Address: [address] [place] [phone] Performed By: #### 5 8410-2 ####[facility] [id number] [place] [address] [place] Comprehensive metabolic 2000 panelon 07-22-2022 Albumin [Mass/Vol] 3.8 g/dL Low 3.9-4.9 [facility] Comment on above: Order Comment: Speci men Type: BLOOD SPECIMENOrdering Facility: [facility] Address: [address] [place] [address] Performed By: #### 2 4323-8 ####[facility] [id number] [place] [address] [place] ALP [Catalytic activity/Vol] 41 U/L Normal 38-113 [facility] Comment on above: Order Comment: Speci men Type: BLOOD SPECIMENOrdering Facility: [facility] Address: [address] [place] [address] Performed By: #### 2 4323-8 ####[facility] [id number] [address] [place] ALT [Catalytic activity/Vol] 21 U/L Normal 10-54 [facility] Comment on above: Order Comment: Speci men Type: BLOOD SPECIMENOrdering Facility: [facility] Address: [address] [place] [phone] Performed By: #### 2 4323-8 ####[facility] [id number] [place] [address] [place] Anion gap [Moles/Vol] 11 mmol/L Normal 9-18 [facility] Comment on above: Order Comment: Speci men Type: BLOOD SPECIMENOrdering Facility: [facility] Address: [address] [place] [phone] Performed By: #### 2 4323-8 ####[facility] [id number] [place] [address] [place] AST [Catalytic activity/Vol] 23 U/L Normal 14-40 [facility] Comment on above: Order Comment: Speci men Type: BLOOD SPECIMENOrdering Facility: [facility] Address: [address] [place] [address], [place] Performed By: #### 2 4323-8 ####[facility] [id number] [place] [address] [place] Bilirubin [Mass/Vol] 0.6 mg/dL Normal 0.2-1.3 [facility] Comment on above: Order Comment: Speci men Type: BLOOD SPECIMENOrdering Facility: [facility] Address: [address] [place] [address] Performed By: #### 2 4323-8 ####[facility] [id number] [place] [address] [place] Calcium [Mass/Vol] 8.9 mg/dL Normal 8.5-10.2 [facility] Comment on above: Order Comment: Speci men Type: BLOOD SPECIMENOrdering Facility: [facility] Address: [address] Performed By: #### 2 4323-8 ####[facility] [id number] [place] [address] [place] Chloride [Moles/Vol] 100 mmol/L Normal 97-105 [facility] Comment on above: Order Comment: Speci men Type: BLOOD SPECIMENOrdering Facility: [facility] Address: [address] [place] [address] Performed By: #### 2 4323-8 ####[facility] [id number] [place] [address] [place] CO2 [Moles/Vol] 27 mmol/L Normal 22-30 [facility] Comment on above: Order Comment: Speci men Type: BLOOD SPECIMENOrdering Facility: [facility] Address: [address] Performed By: #### 2 4323-8 ####[facility] [id number] [address] OF [facility] Creatinine [Mass/Vol] 0.94 mg/dL Normal 0.73-1.22 [facility] Comment on above: Order Comment: Noah schmidt Type: BLOOD SPECIMENOrdering Facility: [facility] Address: [address] [place] [address] Performed By: #### 2 4323-8 ####[facility] [id number] [address] OF [facility] ESTIMATED GLOMERULAR FILTRATION RATE 101 mL/min/1.73m??? Normal >=60 [facility] Comment on above: Order Comment: Noah schmidt Type: BLOOD SPECIMENOrdering Facility: [facility] Address: [address] [place] [address] Result Comment: Lucina mated Glomerular Filtration Rate (eGFR) is calculated using the 2020 CKD-EPI creatinine equation. This equation utilizes serum creatinine, sex, and age as parameters. The creatinine assay has traceable calibration to isotope dilution-mass spectrometry. Refer to KDIGO guidelines for clinical interpretation. In patients with unstable renal function, e.g. those with acute kidney injury, the eGFR may not accurately reflect actual GFR. Performed By: #### 2 4323-8 ####[facility] [id number] [place] [address] [place] Glucose [Mass/Vol] 91 mg/dL Normal 74-99 [facility] Comment on above: Order Comment: Noah schmidt Type: BLOOD SPECIMENOrdering Facility: [facility] Address: [address] [place] [address] Result Comment: The [place] [employer] (ADA) provides guidance for cutoff values for fasting glucose and random glucose. The ADA defines fasting as no caloric intake for at least 8 hours. Fasting plasma glucose results between 100 to 125 mg/dL indicate increased risk for diabetes (prediabetes).Fasting plasma glucose results greater than or equal to 126 mg/dL meet the criteria for diagnosis of diabetes. In the absence of unequivocal hyperglycemia, results should be confirmed by repeat testing. In a patient with classic symptoms of hyperglycemia or hyperglycemic crisis, random plasma glucose results greater than or equal to 200 mg/dL meet the criteria for diagnosis of diabetes.Reference: Standards of Medical Care in Diabetes 2016, [place] [employer]. Diabetes Care. 2016.39(Suppl 1). Performed By: #### 2 4323-8 ####[facility] [id number] [place] [address] [place] Potassium [Moles/Vol] 3.8 mmol/L Normal 3.7-5.1 [facility] Comment on above: Order Comment: Speci men Type: BLOOD SPECIMENOrdering Facility: [facility] Address: [address] [place] [address] Performed By: #### 2 4323-8 ####[facility] [id number] [place] [address] [place] Protein [Mass/Vol] 6.5 g/dL Normal 6.3-8.0 [facility] Comment on above: Order Comment: Speci men Type: BLOOD SPECIMENOrdering Facility: [facility] Address: [address] [place] [address] Performed By: #### 2 4323-8 ####[facility] [id number] [place] [address] [place] Sodium [Moles/Vol] 138 mmol/L Normal 136-144 [facility] Comment on above: Order Comment: Speci men Type: BLOOD SPECIMENOrdering Facility: [facility] Address: [address] Performed By: #### 2 4323-8 ####[facility] [id number] [place] [address] [place] Urea nitrogen [Mass/Vol] 31 mg/dL High 9-24 [facility] Comment on above: Order Comment: Speci men Type: BLOOD SPECIMENOrdering Facility: [facility] Address: [address] Performed By: #### 2 4323-8 ####[facility] [id number] [place] [address] [place] PT EDon 07-22-2022 PT ED Normal [facility] PT panel Coag (PPP)on 2021 INR Coag (PPP) [Relative time] 1.1 {INR} Normal 0.9-1.3 [facility] Comment on above: Order Comment: Specmarcus schmidt Type: BLOOD SPECIMENOrdering Facility: [facility] Address: [address] [place], [place] [address] Result Comment: Zofia min K Antagonist (VKA) Therapeutic Range: INR 2 to 3 (Target INR of 2.5)Note: For patients treated with VKA drugs, such as warfarin, the [place] [employer] 2012 Guideline recommends a therapeutic INR range of 2 to 3 (target INR of 2.5). This recommendation includes high-risk patients with antiphospholipid syndrome with previous arterial or venous thromboembolism, current-generation mechanical or bioprosthetic aortic heart valve replacement.Note: Patients with mechanical aortic valve replacement and additional risk factors for thromboembolic events (atrial fibrillation, previous thromboembolism, LV dysfunction, hypercoagulable conditions) or an older generation mechanical AVR (i.e., ball in-Cage) or any mechanical MVR should have a INR therapeutic range of 2.5 to 3.5 (target INR of 3).Suzanne GH, et al. Chest 2012, 141:7S-47SElizabeth EL, et al. [facility] 2017, 70: 252-289 Performed By: #### 3 4528-0 ####[facility] [id number] [place] [address] [place] PT Coag (PPP) [Time] 11.5 s Normal 9.7-13.0 [facility] Comment on above: Order Comment: Noah schmidt Type: BLOOD SPECIMENOrdering Facility: [facility] Address: [place] [address] Performed By: #### 3 4528-0 ####[facility] [id number] [address] [id number], [place] [address] [place] XR CHEST 2V FRONTAL/LATon XR CHEST 2V FRONTAL/LAT Normal [facility] ARTERIAL BLOOD GASESon 07-21 Base excess Calc (Bld) [Moles/Vol] 2 mmol/L Normal 0-2 [facility] Comment on above: Order Comment: Speci men Type: ARTERIAL BLOOD SPECIMENOrdering Facility: [facility] Address: [address] [place] [address] Performed By: #### A LLBG ####[facility] [id number] [address] [place] Body temperature 98.6 [degF] Normal [facility] Comment on above: Order Comment: Speci men Type: ARTERIAL BLOOD SPECIMENOrdering Facility: [facility] Address: [address] [place] [address] Performed By: #### A LLBG ####[facility] [id number] [address] [place] Calcium.ionized (Bld) [Mass/Vol] 1.25 mmol/L Normal 1.08-1.30 [facility] Comment on above: Order Comment: Speci men Type: ARTERIAL BLOOD SPECIMENOrdering Facility: [facility] Address: [address] [place] [id number] Performed By: #### A LLBG ####[facility] [id number] [address] [place] Calcium.ionized adjusted to pH 7.4 (BldA) [Moles/Vol] 1.25 mmol/L Normal 1.08-1.30 [facility] Comment on above: Order Comment: Speci men Type: ARTERIAL BLOOD SPECIMENOrdering Facility: [facility] Address: [address] [place] [id number] Performed By: #### A LLBG ####[facility] [id number] [address] [place] Carboxyhemoglobin (BldA) [Mass fraction] 1.8 % Normal 0.0-2.0 [facility] Comment on above: Order Comment: Speci men Type: ARTERIAL BLOOD SPECIMENOrdering Facility: [facility] Address: [address] [place] [address] Result Comment: Carb oxyhemoglobin Reference Range for Smokers: 2.0-8.0% Performed By: #### A LLBG ####[facility] [id number] [place] [address] [place] CO2 (Bld) [Partial pressure] 45 mm Hg Normal 36-46 [facility] Comment on above: Order Comment: Speci men Type: ARTERIAL BLOOD SPECIMENOrdering Facility: [facility] Address: [address] [place] [address] Performed By: #### A LLBG ####[facility] [id number] [place] [address] [place] CO2 [Moles/Vol] 29 mmol/L High 22-28 [facility] Comment on above: Order Comment: Speci men Type: ARTERIAL BLOOD SPECIMENOrdering Facility: [facility] Address: [address] [place] [address] Performed By: #### A LLBG ####[facility] [id number] [place] [address] [place] Glucose [Mass/Vol] 133 mg/dL High 60-105 [facility] Comment on above: Order Comment: Speci men Type: ARTERIAL BLOOD SPECIMENOrdering Facility: [facility] Address: [address] [place] [address] Performed By: #### A LLBG ####[facility] [id number] [place] [address] [place] HCO3 (Bld) [Moles/Vol] 27 mmol/L High 22-26 [facility] Comment on above: Order Comment: Speci men Type: ARTERIAL BLOOD SPECIMENOrdering Facility: [facility] Address: [address] Performed By: #### A LLBG ####[facility] [id number] [address] [place] Hematocrit (Bld) [Volume fraction] 39.2 % Normal 39.0-51.0 [facility] Comment on above: Order Comment: Speci men Type: ARTERIAL BLOOD SPECIMENOrdering Facility: [facility] Address: [address] Performed By: #### A LLBG ####[facility] [id number] [place] [address] [place] Hemoglobin (Bld) [Mass/Vol] 12.8 g/dL Low 13.0-17.0 [facility] Comment on above: Order Comment: Speci men Type: ARTERIAL BLOOD SPECIMENOrdering Facility: [facility] Address: [address] [place] [id number] Performed By: #### A LLBG ####[facility] [id number] [place] [address] [place] Lactate [Moles/Vol] 1.6 mmol/L Normal 0.5-2.2 [facility] Comment on above: Order Comment: Speci men Type: ARTERIAL BLOOD SPECIMENOrdering Facility: [facility] Address: [address] Performed By: #### A LLBG ####[facility] [id number] [place] [address] [place] Methemoglobin (Bld) [Mass fraction] 0.4 % Normal 0.0-1.5 [facility] Comment on above: Order Comment: Speci men Type: ARTERIAL BLOOD SPECIMENOrdering Facility: [facility] Address: [address] Performed By: #### A LLBG ####[facility] [id number] [place] [address] [place] O2 THERAPY NC = Nasal Cannula Normal [facility] Comment on above: Order Comment: Speci men Type: ARTERIAL BLOOD SPECIMENOrdering Facility: [facility] Address: [address] [place] [address] Performed By: #### A LLBG ####[facility] [id number] [place] [address] [place] Oxygen (Bld) [Partial pressure] 93 mm Hg Normal 85-95 [facility] Comment on above: Order Comment: Speci men Type: ARTERIAL BLOOD SPECIMENOrdering Facility: [facility] Address: [address] [place] [address] Performed By: #### A LLBG ####[facility] [id number] [place] [address] [place] Oxyhemoglobin (BldA) [Mass fraction] 96 % Normal 95-98 [facility] Comment on above: Order Comment: Speci men Type: ARTERIAL BLOOD SPECIMENOrdering Facility: [facility] Address: [address] [place] [id number] Performed By: #### A LLBG ####[facility] [id number] [place] [address] [place] pH (Bld) 7.40 [pH] Normal 7.35-7.45 [facility] Comment on above: Order Comment: Speci men Type: ARTERIAL BLOOD SPECIMENOrdering Facility: [facility] Address: [address] [place] [id number] Performed By: #### A LLBG ####[facility] [id number] [place] [address] [place] Potassium [Moles/Vol] 4.4 mmol/L Normal 3.5-5.0 [facility] Comment on above: Order Comment: Speci men Type: ARTERIAL BLOOD SPECIMENOrdering Facility: [facility] Address: [address] Performed By: #### A LLBG ####[facility] [id number] [place] [address] [place] Sodium [Moles/Vol] 134 mmol/L Low 136-144 [facility] Comment on above: Order Comment: Speci men Type: ARTERIAL BLOOD SPECIMENOrdering Facility: [facility] Address: [address] Performed By: #### A LLBG ####[facility] [id number] [place] [address] [place] Base excess Calc (Bld) [Moles/Vol] 2 mmol/L Normal 0-2 [facility] Comment on above: Order Comment: Speci men Type: ARTERIAL BLOOD SPECIMENOrdering Facility: [facility] Address: [address] Performed By: #### A LLBG ####[facility] [id number] [place] [address] [place] Body temperature 98.06 [degF] Normal [facility] Comment on above: Order Comment: Speci men Type: ARTERIAL BLOOD SPECIMENOrdering Facility: [facility] Address: [address] Performed By: #### A LLBG ####[facility] [id number] [place] [address] [place] Calcium.ionized (Bld) [Mass/Vol] 1.22 mmol/L Normal 1.08-1.30 [facility] Comment on above: Order Comment: Speci men Type: ARTERIAL BLOOD SPECIMENOrdering Facility: [facility] Address: [address] Performed By: #### A LLBG ####[facility] [id number] [place] [address] [place] Calcium.ionized adjusted to pH 7.4 (BldA) [Moles/Vol] 1.22 mmol/L Normal 1.08-1.30 [facility] Comment on above: Order Comment: Speci men Type: ARTERIAL BLOOD SPECIMENOrdering Facility: [facility] Address: [address] [place] [address] Performed By: #### A LLBG ####[facility] [id number] [address] [place] Carboxyhemoglobin (BldA) [Mass fraction] 1.2 % Normal 0.0-2.0 [facility] Comment on above: Order Comment: Speci men Type: ARTERIAL BLOOD SPECIMENOrdering Facility: [facility] Address: [address] [place] [address] Result Comment: Carb oxyhemoglobin Reference Range for Smokers: 2.0-8.0% Performed By: #### A LLBG ####[facility] [id number] [address] [place] CO2 (Bld) [Partial pressure] 43 mm Hg Normal 36-46 [facility] Comment on above: Order Comment: Speci men Type: ARTERIAL BLOOD SPECIMENOrdering Facility: [facility] Address: [address] [place] [id number] Performed By: #### A LLBG ####[facility] [id number] [place] [address] [place] CO2 [Moles/Vol] 28 mmol/L Normal 22-28 [facility] Comment on above: Order Comment: Speci men Type: ARTERIAL BLOOD SPECIMENOrdering Facility: [facility] Address: [address] [place] [id number] Performed By: #### A LLBG ####[facility] [id number] [place] [address] [place] CO2 adjusted to patient's actual temperature (Bld) [Partial pressure] 43 mmHg Normal 36-46 [facility] Comment on above: Order Comment: Speci men Type: ARTERIAL BLOOD SPECIMENOrdering Facility: [facility] Address: [address] Performed By: #### A LLBG ####[facility] [id number] [place] [address] [place] Glucose [Mass/Vol] 134 mg/dL High 60-105 [facility] Comment on above: Order Comment: Speci men Type: ARTERIAL BLOOD SPECIMENOrdering Facility: [facility] Address: [address] Performed By: #### A LLBG ####[facility] [id number] [place] [address] [place] HCO3 (Bld) [Moles/Vol] 26 mmol/L Normal 22-26 [facility] Comment on above: Order Comment: Speci men Type: ARTERIAL BLOOD SPECIMENOrdering Facility: [facility] Address: [address] Performed By: #### A LLBG ####[facility] [id number] [place] [address] [place] Hematocrit (Bld) [Volume fraction] 39.2 % Normal 39.0-51.0 [facility] Comment on above: Order Comment: Speci men Type: ARTERIAL BLOOD SPECIMENOrdering Facility: [facility] Address: [address] Performed By: #### A LLBG ####[facility] [id number] [place] [address] [place] Hemoglobin (Bld) [Mass/Vol] 12.8 g/dL Low 13.0-17.0 [facility] Comment on above: Order Comment: Speci men Type: ARTERIAL BLOOD SPECIMENOrdering Facility: [facility] Address: [address] Performed By: #### A LLBG ####[facility] [id number] [place] [address] [place] Lactate [Moles/Vol] 1.5 mmol/L Normal 0.5-2.2 [facility] Comment on above: Order Comment: Speci men Type: ARTERIAL BLOOD SPECIMENOrdering Facility: [facility] Address: [address] [place] [id number] Performed By: #### A LLBG ####[facility] [id number] [place] [address] [place] Methemoglobin (Bld) [Mass fraction] 0.9 % Normal 0.0-1.5 [facility] Comment on above: Order Comment: Speci men Type: ARTERIAL BLOOD SPECIMENOrdering Facility: [facility] Address: [address] [place] [id number] Performed By: #### A LLBG ####[facility] [id number] [address] [place] O2 THERAPY [place] = Nasal Cannula Normal [facility] Comment on above: Order Comment: Speci men Type: ARTERIAL BLOOD SPECIMENOrdering Facility: [facility] Address: [address] [place] [id number] Performed By: #### A LLBG ####[facility] [id number] [place] [address] [place] Oxygen (Bld) [Partial pressure] 100 mm Hg High 85-95 [facility] Comment on above: Order Comment: Speci men Type: ARTERIAL BLOOD SPECIMENOrdering Facility: [facility] Address: [address] [place] [address] Performed By: #### A LLBG ####[facility] [id number] [address] [place] Oxygen adjusted to patient's actual temperature (Bld) [Partial pressure] 98 mmHg High 85-95 [facility] Comment on above: Order Comment: Speci men Type: ARTERIAL BLOOD SPECIMENOrdering Facility: [facility] Address: [address] [place] [id number] Performed By: #### A LLBG ####[facility] [id number] [place] [address] [place] Oxyhemoglobin (BldA) [Mass fraction] 96 % Normal 95-98 [facility] Comment on above: Order Comment: Speci men Type: ARTERIAL BLOOD SPECIMENOrdering Facility: [facility] Address: [address] Performed By: #### A LLBG ####[facility] [id number] [place] [address] [place] pH (Bld) 7.40 [pH] Normal 7.35-7.45 [facility] Comment on above: Order Comment: Speci men Type: ARTERIAL BLOOD SPECIMENOrdering Facility: [facility] Address: [address] Performed By: #### A LLBG ####[facility] [id number] [place] [address] [place] pH adjusted to patient's actual temperature (Bld) 7.41 Normal 7.35-7.45 [facility] Comment on above: Order Comment: Speci men Type: ARTERIAL BLOOD SPECIMENOrdering Facility: [facility] Address: [address] Performed By: #### A LLBG ####[facility] [id number] [place] [address] [place] Potassium [Moles/Vol] 4.4 mmol/L Normal 3.5-5.0 [facility] Comment on above: Order Comment: Speci men Type: ARTERIAL BLOOD SPECIMENOrdering Facility: [facility] Address: [address] Performed By: #### A LLBG ####[facility] [id number] [place] [address] [place] Sodium [Moles/Vol] 134 mmol/L Low 136-144 [facility] Comment on above: Order Comment: Speci men Type: ARTERIAL BLOOD SPECIMENOrdering Facility: [facility] Address: [address] [place] [id number] Performed By: #### A LLBG ####[facility] [id number] [place] [address] [place] Base excess Calc (Bld) [Moles/Vol] 2 mmol/L Normal 0-2 [facility] Comment on above: Order Comment: Speci men Type: ARTERIAL BLOOD SPECIMENOrdering Facility: [facility] Address: [address] [place] [id number] Performed By: #### A LLBG ####[facility] [id number] [address] [place] Body temperature 99.32 [degF] Normal [facility] Comment on above: Order Comment: Speci men Type: ARTERIAL BLOOD SPECIMENOrdering Facility: [facility] Address: [address] [place] [address] Performed By: #### A LLBG ####[facility] [id number] [place] [address] [place] Calcium.ionized (Bld) [Mass/Vol] 1.15 mmol/L Normal 1.08-1.30 [facility] Comment on above: Order Comment: Speci men Type: ARTERIAL BLOOD SPECIMENOrdering Facility: [facility] Address: [address] [place] [address] Performed By: #### A LLBG ####[facility] [id number] [place] [address] [place] Calcium.ionized adjusted to pH 7.4 (BldA) [Moles/Vol] 1.15 mmol/L Normal 1.08-1.30 [facility] Comment on above: Order Comment: Speci men Type: ARTERIAL BLOOD SPECIMENOrdering Facility: [facility] Address: [address] [place] [address] Performed By: #### A LLBG ####[facility] [id number] [place] [address] [place] Carboxyhemoglobin (BldA) [Mass fraction] 1.6 % Normal 0.0-2.0 [facility] Comment on above: Order Comment: Speci men Type: ARTERIAL BLOOD SPECIMENOrdering Facility: [facility] Address: [address] [place] [address] Result Comment: Carb oxyhemoglobin Reference Range for Smokers: 2.0-8.0% Performed By: #### A LLBG ####[facility] [id number] [place] [address] [place] CO2 (Bld) [Partial pressure] 42 mm Hg Normal 36-46 [facility] Comment on above: Order Comment: Speci men Type: ARTERIAL BLOOD SPECIMENOrdering Facility: [facility] Address: [address] [place] [address] Performed By: #### A LLBG ####[facility] [id number] [place] [address] [place] CO2 [Moles/Vol] 27 mmol/L Normal 22-28 [facility] Comment on above: Order Comment: Speci men Type: ARTERIAL BLOOD SPECIMENOrdering Facility: [facility] Address: [address] [place] [id number] Performed By: #### A LLBG ####[facility] [id number] [place] [address] [place] CO2 adjusted to patient's actual temperature (Bld) [Partial pressure] 43 mmHg Normal 36-46 [facility] Comment on above: Order Comment: Speci men Type: ARTERIAL BLOOD SPECIMENOrdering Facility: [facility] Address: [address] Performed By: #### A LLBG ####[facility] [id number] [place] [address] [place] Glucose [Mass/Vol] 139 mg/dL High 60-105 [facility] Comment on above: Order Comment: Speci men Type: ARTERIAL BLOOD SPECIMENOrdering Facility: [facility] Address: [address] Performed By: #### A LLBG ####[facility] [id number] [place] [address] [place] HCO3 (Bld) [Moles/Vol] 26 mmol/L Normal 22-26 [facility] Comment on above: Order Comment: Speci men Type: ARTERIAL BLOOD SPECIMENOrdering Facility: [facility] Address: [address] Performed By: #### A LLBG ####[facility] [id number] [place] [address] [place] Hematocrit (Bld) [Volume fraction] 40.9 % Normal 39.0-51.0 [facility] Comment on above: Order Comment: Speci men Type: ARTERIAL BLOOD SPECIMENOrdering Facility: [facility] Address: [address] Performed By: #### A LLBG ####[facility] [id number] [place] [address] [place] Hemoglobin (Bld) [Mass/Vol] 13.3 g/dL Normal 13.0-17.0 [facility] Comment on above: Order Comment: Speci men Type: ARTERIAL BLOOD SPECIMENOrdering Facility: [facility] Address: [address] Performed By: #### A LLBG ####[facility] [id number] [place] [address] [place] Lactate [Moles/Vol] 1.8 mmol/L Normal 0.5-2.2 [facility] Comment on above: Order Comment: Speci men Type: ARTERIAL BLOOD SPECIMENOrdering Facility: [facility] Address: [address] [place] [address] Performed By: #### A LLBG ####[facility] [id number] [place] [address] [place] Methemoglobin (Bld) [Mass fraction] 0.8 % Normal 0.0-1.5 [facility] Comment on above: Order Comment: Speci men Type: ARTERIAL BLOOD SPECIMENOrdering Facility: [facility] Address: [address] [place] [address] Performed By: #### A LLBG ####[facility] [id number] [address] [place] O2 THERAPY Positive Normal [facility] Comment on above: Order Comment: Speci men Type: ARTERIAL BLOOD SPECIMENOrdering Facility: [facility] Address: [address] [place] [id number] Performed By: #### A LLBG ####[facility] [id number] [place] [address] [place] Oxygen (Bld) [Partial pressure] 114 mm Hg High 85-95 [facility] Comment on above: Order Comment: Speci men Type: ARTERIAL BLOOD SPECIMENOrdering Facility: [facility] Address: [address] [place] [address] Performed By: #### A LLBG ####[facility] [id number] [address] [place] Oxygen adjusted to patient's actual temperature (Bld) [Partial pressure] 116 mmHg High 85-95 [facility] Comment on above: Order Comment: Speci men Type: ARTERIAL BLOOD SPECIMENOrdering Facility: [facility] Address: [address] [place] [address] Performed By: #### A LLBG ####[facility] [id number] [place] [address] [place] Oxyhemoglobin (BldA) [Mass fraction] 96 % Normal 95-98 [facility] Comment on above: Order Comment: Speci men Type: ARTERIAL BLOOD SPECIMENOrdering Facility: [facility] Address: [address] [place] [address] Performed By: #### A LLBG ####[facility] [id number] [place] [address] [place] pH (Bld) 7.41 [pH] Normal 7.35-7.45 [facility] Comment on above: Order Comment: Speci men Type: ARTERIAL BLOOD SPECIMENOrdering Facility: [facility] Address: [address] [place] [id number] Performed By: #### A LLBG ####[facility] [id number] [place] [address] [place] pH adjusted to patient's actual temperature (Bld) 7.40 Normal 7.35-7.45 [facility] Comment on above: Order Comment: Speci men Type: ARTERIAL BLOOD SPECIMENOrdering Facility: [facility] Address: [address] [place] [id number] Performed By: #### A LLBG ####[facility] [id number] [place] [address] [place] Potassium [Moles/Vol] 4.2 mmol/L Normal 3.5-5.0 [facility] Comment on above: Order Comment: Speci men Type: ARTERIAL BLOOD SPECIMENOrdering Facility: [facility] Address: [address] [place] [id number] Performed By: #### A LLBG ####[facility] [id number] [place] [address] [place] Sodium [Moles/Vol] 129 mmol/L Low 136-144 [facility] Comment on above: Order Comment: Speci men Type: ARTERIAL BLOOD SPECIMENOrdering Facility: [facility] Address: [address] [place] [address] Performed By: #### A LLBG ####[facility] [id number] [place] [address] [place] CASE MGT INIT ASSESon 2021 CASE MGT INIT ASSES Normal [facility] CBC panel Auto (Bld)on 07-21 Erythrocyte distribution width (RBC) [Ratio] 12.9 % Normal 11.5-15.0 [facility] Comment on above: Order Comment: Speci men Type: BLOOD SPECIMENOrdering Facility: [facility] Address: [address] [place] [address] Performed By: #### 5 8410-2 ####[facility] [id number] [place] [address] [place] Hematocrit (Bld) [Volume fraction] 38.0 % Low 39.0-51.0 [facility] Comment on above: Order Comment: Speci men Type: BLOOD SPECIMENOrdering Facility: [facility] Address: [address] [place] [id number] Performed By: #### 5 8410-2 ####[facility] [id number] [place] [address] [place] Hemoglobin (Bld) [Mass/Vol] 12.7 g/dL Low 13.0-17.0 [facility] Comment on above: Order Comment: Speci men Type: BLOOD SPECIMENOrdering Facility: [facility] Address: [address] [place] [address] Performed By: #### 5 8410-2 ####[facility] [id number] [address] MCH (RBC) [Entitic mass] 28.7 pg Normal 26.0-34.0 [facility] Comment on above: Order Comment: Speci men Type: BLOOD SPECIMENOrdering Facility: [facility] Address: [address] [place] [address] Performed By: #### 5 8410-2 ####[facility] [id number] [address] MCHC (RBC) [Mass/Vol] 33.4 g/dL Normal 30.5-36.0 [facility] Comment on above: Order Comment: Speci men Type: BLOOD SPECIMENOrdering Facility: [facility] Address: [address] [place] [address] Performed By: #### 5 8410-2 ####[facility] [id number] [address] MCV (RBC) [Entitic vol] 85.8 fL Normal 80.0-100.0 [facility] Comment on above: Order Comment: Speci men Type: BLOOD SPECIMENOrdering Facility: [facility] Address: [address] [place] [address] Performed By: #### 5 8410-2 ####[facility] [id number] [address] [place] Nucleated RBC (Bld) [#/Vol] 10*3/uL Normal <0.01 [facility] Comment on above: Order Comment: Speci men Type: BLOOD SPECIMENOrdering Facility: [facility] Address: [address] [place] [address] Performed By: #### 5 8410-2 ####[facility] [id number] [address] [place] Platelet mean volume (Bld) [Entitic vol] 10.2 fL Normal 9.0-12.7 [facility] Comment on above: Order Comment: Speci men Type: BLOOD SPECIMENOrdering Facility: [facility] Address: [address] [place] [id number] Performed By: #### 5 8410-2 ####[facility] [id number] [place] [address] [place] Platelets (Bld) [#/Vol] 147 10*3/uL Low 150-400 [facility] Comment on above: Order Comment: Speci men Type: BLOOD SPECIMENOrdering Facility: [facility] Address: [address] [place] [phone] Performed By: #### 5 8410-2 ####[facility] [id number] [place] [address] [place] RBC (Bld) [#/Vol] 4.43 10*6/uL Normal 4.20-6.00 [facility] Comment on above: Order Comment: Speci men Type: BLOOD SPECIMENOrdering Facility: [facility] Address: [address] [place] [phone] Performed By: #### 5 8410-2 ####[facility] [id number] [place] [address] [place] WBC (Bld) [#/Vol] 15.75 10*3/uL High 3.70-11.00 [facility] Comment on above: Order Comment: Speci men Type: BLOOD SPECIMENOrdering Facility: [facility] Address: [address] [place] [phone] Performed By: #### 5 8410-2 ####[facility] [id number] [place] [address] [place] Comprehensive metabolic 2000 panelon 07-21-2022 Albumin [Mass/Vol] 3.9 g/dL Normal 3.9-4.9 [facility] Comment on above: Order Comment: Speci men Type: BLOOD SPECIMENOrdering Facility: [facility] Address: [address] Performed By: #### 2 4323-8, JUAN ####[facility] [id number] [place] [address] [place] ALP [Catalytic activity/Vol] 35 U/L Low 38-113 [facility] Comment on above: Order Comment: Speci men Type: BLOOD SPECIMENOrdering Facility: [facility] Address: [address] Performed By: #### 2 4323-8, JUAN ####[facility] [id number] [place] [address] [place] ALT [Catalytic activity/Vol] 27 U/L Normal 10-54 [facility] Comment on above: Order Comment: Speci men Type: BLOOD SPECIMENOrdering Facility: [facility] Address: [address] [place] [phone] Performed By: #### 2 4323-8, JUAN ####[facility] [id number] [place] [address] [place] Anion gap [Moles/Vol] 11 mmol/L Normal 9-18 [facility] Comment on above: Order Comment: Speci men Type: BLOOD SPECIMENOrdering Facility: [facility] Address: [address] Performed By: #### 2 4323-8, JUAN ####[facility] [id number] [place] [address] [place] AST [Catalytic activity/Vol] 29 U/L Normal 14-40 [facility] Comment on above: Order Comment: Speci men Type: BLOOD SPECIMENOrdering Facility: [facility] Address: [address] Performed By: #### 2 4323-8, JUAN ####[facility] [id number] [place] [address] [place] Bilirubin [Mass/Vol] 1.3 mg/dL Normal 0.2-1.3 [facility] Comment on above: Order Comment: Speci men Type: BLOOD SPECIMENOrdering Facility: [facility] Address: [address] [place] [address] Performed By: #### 2 4323-8, JUAN ####[facility] [id number] [place] [address] [place] Calcium [Mass/Vol] 9.1 mg/dL Normal 8.5-10.2 [facility] Comment on above: Order Comment: Speci men Type: BLOOD SPECIMENOrdering Facility: [facility] Address: [address] [place] [address] Performed By: #### 2 4323-8, JUAN ####[facility] [id number] [place] [address] [place] Chloride [Moles/Vol] 100 mmol/L Normal 97-105 [facility] Comment on above: Order Comment: Speci men Type: BLOOD SPECIMENOrdering Facility: [facility] Address: [address] [place] [address] Performed By: #### 2 4323-8, JUAN ####[facility] [id number] [place] [address] [place] CO2 [Moles/Vol] 24 mmol/L Normal 22-30 [facility] Comment on above: Order Comment: Speci men Type: BLOOD SPECIMENOrdering Facility: [facility] Address: [address] [place] [phone] Performed By: #### 2 4323-8, JUAN ####[facility] [id number] [place] [address] [place] Creatinine [Mass/Vol] 0.85 mg/dL Normal 0.73-1.22 [facility] Comment on above: Order Comment: Noah schmidt Type: BLOOD SPECIMENOrdering Facility: [facility] Address: [address] [address] Performed By: #### 2 4323-8, JUAN ####[facility] [id number] [place] [address] [place] ESTIMATED GLOMERULAR FILTRATION RATE 108 mL/min/1.73m??? Normal >=60 [facility] Comment on above: Order Comment: Noah schmidt Type: BLOOD SPECIMENOrdering Facility: [facility] Address: [address] [address] Result Comment: Lucina mated Glomerular Filtration Rate (eGFR) is calculated using the 2020 CKD-EPI creatinine equation. This equation utilizes serum creatinine, sex, and age as parameters. The creatinine assay has traceable calibration to isotope dilution-mass spectrometry. Refer to KDIGO guidelines for clinical interpretation. In patients with unstable renal function, e.g. those with acute kidney injury, the eGFR may not accurately reflect actual GFR. Performed By: #### 2 4323-8, JUAN ####[facility] [id number] [place] [address] [place] Glucose [Mass/Vol] 131 mg/dL High 74-99 [facility] Comment on above: Order Comment: Noah schmidt Type: BLOOD SPECIMENOrdering Facility: [facility] Address: [address] [address] Result Comment: The [place] [employer] (ADA) provides guidance for cutoff values for fasting glucose and random glucose. The ADA defines fasting as no caloric intake for at least 8 hours. Fasting plasma glucose results between 100 to 125 mg/dL indicate increased risk for diabetes (prediabetes).Fasting plasma glucose results greater than or equal to 126 mg/dL meet the criteria for diagnosis of diabetes. In the absence of unequivocal hyperglycemia, results should be confirmed by repeat testing. In a patient with classic symptoms of hyperglycemia or hyperglycemic crisis, random plasma glucose results greater than or equal to 200 mg/dL meet the criteria for diagnosis of diabetes.Reference: Standards of Medical Care in Diabetes 2016, [place] [employer]. Diabetes Care. 2016.39(Suppl 1). Performed By: #### 2 4323-8, JUAN ####[facility] [id number] [place] [address] [place] Potassium [Moles/Vol] 4.4 mmol/L Normal 3.7-5.1 [facility] Comment on above: Order Comment: Speci men Type: BLOOD SPECIMENOrdering Facility: [facility] Address: [address] Performed By: #### 2 4323-8, JUAN ####[facility] [id number] [place] [address] [place] Protein [Mass/Vol] 6.3 g/dL Normal 6.3-8.0 [facility] Comment on above: Order Comment: Speci men Type: BLOOD SPECIMENOrdering Facility: [facility] Address: [address] Performed By: #### 2 4323-8, JUAN ####[facility] [id number] [place] [address] [place] Sodium [Moles/Vol] 135 mmol/L Low 136-144 [facility] Comment on above: Order Comment: Speci men Type: BLOOD SPECIMENOrdering Facility: [facility] Address: [address] Performed By: #### 2 4323-8, JUAN ####[facility] [id number] [place] [address] [place] Urea nitrogen [Mass/Vol] 21 mg/dL Normal 9-24 [facility] Comment on above: Order Comment: Speci men Type: BLOOD SPECIMENOrdering Facility: [facility] Address: [address] Performed By: #### 2 4323-8, JUAN ####[facility] [id number] [place] [address] [place] PT panel Coag (PPP)on 2021 INR Coag (PPP) [Relative time] 1.2 {INR} Normal 0.9-1.3 [facility] Comment on above: Order Comment: Noah schmidt Type: BLOOD SPECIMENOrdering Facility: [facility] Address: [place] [address] Result Comment: Zofia min K Antagonist (VKA) Therapeutic Range: INR 2 to 3 (Target INR of 2.5)Note: For patients treated with VKA drugs, such as warfarin, the [place] [employer] 2012 Guideline recommends a therapeutic INR range of 2 to 3 (target INR of 2.5). This recommendation includes high-risk patients with antiphospholipid syndrome with previous arterial or venous thromboembolism, current-generation mechanical or bioprosthetic aortic heart valve replacement.Note: Patients with mechanical aortic valve replacement and additional risk factors for thromboembolic events (atrial fibrillation, previous thromboembolism, LV dysfunction, hypercoagulable conditions) or an older generation mechanical AVR (i.e., ball in-Cage) or any mechanical MVR should have a INR therapeutic range of 2.5 to 3.5 (target INR of 3).Yohanatt GH, et al. Chest 2012, 141:7S-47SNishimura RA, et al. [facility] 2017, 70: 252-289 Performed By: #### 3 4528-0 ####[facility] [id number] [place] [address] [place] PT Coag (PPP) [Time] 12.1 s Normal 9.7-13.0 [facility] Comment on above: Order Comment: Noah schmidt Type: BLOOD SPECIMENOrdering Facility: [facility] Address: [place] [address] Performed By: #### 3 4528-0 ####[facility] [id number] [address] [place] THERAPY NTon 07-21-2022 THERAPY NT Normal [facility] TROPONIN Ton 07-21-2022 Troponin T.cardiac [Mass/Vol] 0.060 ug/L High 0.000-0.029 [facility] Comment on above: Order Comment: Speci men Type: BLOOD SPECIMENOrdering Facility: [facility] Address: [address] [place] [id number] Performed By: #### 2 4323-8, JUAN ####[facility] [id number] [place] [address] [place] XR CHEST 1V FRONTAL PORTon 1 XR CHEST 1V FRONTAL PORT Normal [facility] ARTERIAL BLOOD GASESon 07-20 Base excess Calc (Bld) [Moles/Vol] 0 mmol/L Normal 0-2 [facility] Comment on above: Order Comment: Speci men Type: ARTERIAL BLOOD SPECIMENOrdering Facility: [facility] Address: [address] [place] [address] Performed By: #### A LLBG ####[facility] [id number] [place] [address] [place] Body temperature 98.42 [degF] Normal [facility] Comment on above: Order Comment: Speci men Type: ARTERIAL BLOOD SPECIMENOrdering Facility: [facility] Address: [address] [place] [address] Performed By: #### A LLBG ####[facility] [id number] [place] [address] [place] Calcium.ionized (Bld) [Mass/Vol] 1.19 mmol/L Normal 1.08-1.30 [facility] Comment on above: Order Comment: Speci men Type: ARTERIAL BLOOD SPECIMENOrdering Facility: [facility] Address: [address] [place] [phone] Performed By: #### A LLBG ####[facility] [id number] [place] [address] [place] Calcium.ionized adjusted to pH 7.4 (BldA) [Moles/Vol] 1.18 mmol/L Normal 1.08-1.30 [facility] Comment on above: Order Comment: Speci men Type: ARTERIAL BLOOD SPECIMENOrdering Facility: [facility] Address: [address] [place] [address] Performed By: #### A LLBG ####[facility] [id number] [place] [address] [place] Carboxyhemoglobin (BldA) [Mass fraction] 2.3 % High 0.0-2.0 [facility] Comment on above: Order Comment: Speci men Type: ARTERIAL BLOOD SPECIMENOrdering Facility: [facility] Address: [address] [place] [address] Result Comment: Carb oxyhemoglobin Reference Range for Smokers: 2.0-8.0% Performed By: #### A LLBG ####[facility] [id number] [place] [address] [place] CO2 (Bld) [Partial pressure] 44 mm Hg Normal 36-46 [facility] Comment on above: Order Comment: Speci men Type: ARTERIAL BLOOD SPECIMENOrdering Facility: [facility] Address: [address] [place] [phone] Performed By: #### A LLBG ####[facility] [id number] [place] [address] [place] CO2 [Moles/Vol] 26 mmol/L Normal 22-28 [facility] Comment on above: Order Comment: Speci men Type: ARTERIAL BLOOD SPECIMENOrdering Facility: [facility] Address: [address] [place] [phone] Performed By: #### A LLBG ####[facility] [id number] [place] [address] [place] CO2 adjusted to patient's actual temperature (Bld) [Partial pressure] 44 mmHg Normal 36-46 [facility] Comment on above: Order Comment: Speci men Type: ARTERIAL BLOOD SPECIMENOrdering Facility: [facility] Address: [address] Performed By: #### A LLBG ####[facility] [id number] [place] [address] [place] Glucose [Mass/Vol] 154 mg/dL High 60-105 [facility] Comment on above: Order Comment: Speci men Type: ARTERIAL BLOOD SPECIMENOrdering Facility: [facility] Address: [address] Performed By: #### A LLBG ####[facility] [id number] [place] [address] [place] HCO3 (Bld) [Moles/Vol] 25 mmol/L Normal 22-26 [facility] Comment on above: Order Comment: Speci men Type: ARTERIAL BLOOD SPECIMENOrdering Facility: [facility] Address: [address] Performed By: #### A LLBG ####[facility] [id number] [place] [address] [place] Hematocrit (Bld) [Volume fraction] 43.3 % Normal 39.0-51.0 [facility] Comment on above: Order Comment: Speci men Type: ARTERIAL BLOOD SPECIMENOrdering Facility: [facility] Address: [address] [place] [id number] Performed By: #### A LLBG ####[facility] [id number] [place] [address] [place] Hemoglobin (Bld) [Mass/Vol] 14.1 g/dL Normal 13.0-17.0 [facility] Comment on above: Order Comment: Speci men Type: ARTERIAL BLOOD SPECIMENOrdering Facility: [facility] Address: [address] Performed By: #### A LLBG ####[facility] [id number] [address] [place] Lactate [Moles/Vol] 1.8 mmol/L Normal 0.5-2.2 [facility] Comment on above: Order Comment: Speci men Type: ARTERIAL BLOOD SPECIMENOrdering Facility: [facility] Address: [address] [place] [address] Performed By: #### A LLBG ####[facility] [id number] [address] OF [facility] Methemoglobin (Bld) [Mass fraction] 1.2 % Normal 0.0-1.5 [facility] Comment on above: Order Comment: Speci men Type: ARTERIAL BLOOD SPECIMENOrdering Facility: [facility] Address: [address] [place] [id number] Performed By: #### A LLBG ####[facility] [id number] [address] [place] O2 THERAPY NC = Nasal Cannula Normal [facility] Comment on above: Order Comment: Speci men Type: ARTERIAL BLOOD SPECIMENOrdering Facility: [facility] Address: [address] [place] [id number] Performed By: #### A LLBG ####[facility] [id number] [address] [place] Oxygen (Bld) [Partial pressure] 128 mm Hg High 85-95 [facility] Comment on above: Order Comment: Speci men Type: ARTERIAL BLOOD SPECIMENOrdering Facility: [facility] Address: [address] [place] [id number] Performed By: #### A LLBG ####[facility] [id number] [address] [place] Oxygen adjusted to patient's actual temperature (Bld) [Partial pressure] 127 mmHg High 85-95 [facility] Comment on above: Order Comment: Speci men Type: ARTERIAL BLOOD SPECIMENOrdering Facility: [facility] Address: [address] Performed By: #### A LLBG ####[facility] [id number] [place] [address] [place] Oxyhemoglobin (BldA) [Mass fraction] 96 % Normal 95-98 [facility] Comment on above: Order Comment: Speci men Type: ARTERIAL BLOOD SPECIMENOrdering Facility: [facility] Address: [address] [place] [address] Performed By: #### A LLBG ####[facility] [id number] [place] [address] [place] pH (Bld) 7.37 [pH] Normal 7.35-7.45 [facility] Comment on above: Order Comment: Speci men Type: ARTERIAL BLOOD SPECIMENOrdering Facility: [facility] Address: [address] [place] [phone] Performed By: #### A LLBG ####[facility] [id number] [place] [address] [place] pH adjusted to patient's actual temperature (Bld) 7.37 Normal 7.35-7.45 [facility] Comment on above: Order Comment: Speci men Type: ARTERIAL BLOOD SPECIMENOrdering Facility: [facility] Address: [address] [place] [id number] Performed By: #### A LLBG ####[facility] [id number] [place] [address] [place] Potassium [Moles/Vol] 4.3 mmol/L Normal 3.5-5.0 [facility] Comment on above: Order Comment: Speci men Type: ARTERIAL BLOOD SPECIMENOrdering Facility: [facility] Address: [address] [place] [phone] Performed By: #### A LLBG ####[facility] [id number] [place] [address] [place] Sodium [Moles/Vol] 134 mmol/L Low 136-144 [facility] Comment on above: Order Comment: Speci men Type: ARTERIAL BLOOD SPECIMENOrdering Facility: [facility] Address: [address] [place] [address] Performed By: #### A LLBG ####[facility] [id number] [place] [address] [place] Base deficit (BldA) [Moles/Vol] -1 mmol/L Normal -2-0 [facility] Comment on above: Order Comment: Speci men Type: ARTERIAL BLOOD SPECIMENOrdering Facility: [facility] Address: [address] [place] [address] Performed By: #### A LLBG ####[facility] [id number] [place] [address] [place] Body temperature 98.6 [degF] Normal [facility] Comment on above: Order Comment: Speci men Type: ARTERIAL BLOOD SPECIMENOrdering Facility: [facility] Address: [address] [place] [id number] Performed By: #### A LLBG ####[facility] [id number] [place] [address] [place] Calcium.ionized (Bld) [Mass/Vol] 1.21 mmol/L Normal 1.08-1.30 [facility] Comment on above: Order Comment: Speci men Type: ARTERIAL BLOOD SPECIMENOrdering Facility: [facility] Address: [address] [place] [id number] Performed By: #### A LLBG ####[facility] [id number] [place] [address] [place] Calcium.ionized adjusted to pH 7.4 (BldA) [Moles/Vol] 1.18 mmol/L Normal 1.08-1.30 [facility] Comment on above: Order Comment: Speci men Type: ARTERIAL BLOOD SPECIMENOrdering Facility: [facility] Address: [address] [address] Performed By: #### A LLBG ####[facility] [id number] [place] [address] [place] Carboxyhemoglobin (BldA) [Mass fraction] 1.3 % Normal 0.0-2.0 [facility] Comment on above: Order Comment: Speci men Type: ARTERIAL BLOOD SPECIMENOrdering Facility: [facility] Address: [address] [address] Result Comment: Carb oxyhemoglobin Reference Range for Smokers: 2.0-8.0% Performed By: #### A LLBG ####[facility] [id number] [place] [address] [place] CO2 (Bld) [Partial pressure] 45 mm Hg Normal 36-46 [facility] Comment on above: Order Comment: Speci men Type: ARTERIAL BLOOD SPECIMENOrdering Facility: [facility] Address: [address] [address] Performed By: #### A LLBG ####[facility] [id number] [place] [address] [place] CO2 [Moles/Vol] 26 mmol/L Normal 22-28 [facility] Comment on above: Order Comment: Speci men Type: ARTERIAL BLOOD SPECIMENOrdering Facility: [facility] Address: [address] Performed By: #### A LLBG ####[facility] [id number] [place] [address] [place] Glucose [Mass/Vol] 180 mg/dL High 60-105 [facility] Comment on above: Order Comment: Speci men Type: ARTERIAL BLOOD SPECIMENOrdering Facility: [facility] Address: [address] Performed By: #### A LLBG ####[facility] [id number] [place] [address] [place] HCO3 (Bld) [Moles/Vol] 25 mmol/L Normal 22-26 [facility] Comment on above: Order Comment: Speci men Type: ARTERIAL BLOOD SPECIMENOrdering Facility: [facility] Address: [address] [place] [id number] Performed By: #### A LLBG ####[facility] [id number] [place] [address] [place] Hematocrit (Bld) [Volume fraction] 42.6 % Normal 39.0-51.0 [facility] Comment on above: Order Comment: Speci men Type: ARTERIAL BLOOD SPECIMENOrdering Facility: [facility] Address: [address] [place] [id number] Performed By: #### A LLBG ####[facility] [id number] [place] [address] [place] Hemoglobin (Bld) [Mass/Vol] 13.9 g/dL Normal 13.0-17.0 [facility] Comment on above: Order Comment: Speci men Type: ARTERIAL BLOOD SPECIMENOrdering Facility: [facility] Address: [address] [place] [id number] Performed By: #### A LLBG ####[facility] [id number] [place] [address] [place] Lactate [Moles/Vol] 1.6 mmol/L Normal 0.5-2.2 [facility] Comment on above: Order Comment: Speci men Type: ARTERIAL BLOOD SPECIMENOrdering Facility: [facility] Address: [address] [place] [id number] Performed By: #### A LLBG ####[facility] [id number] [place] [id number] [address] [place] Methemoglobin (Bld) [Mass fraction] 0.7 % Normal 0.0-1.5 [facility] Comment on above: Order Comment: Speci men Type: ARTERIAL BLOOD SPECIMENOrdering Facility: [facility] Address: [address] Performed By: #### A LLBG ####[facility] [id number] [place] [address] [place] O2 THERAPY NC = Nasal Cannula Normal [facility] Comment on above: Order Comment: Speci men Type: ARTERIAL BLOOD SPECIMENOrdering Facility: [facility] Address: [address] Performed By: #### A LLBG ####[facility] [id number] [place] [address] [place] Oxygen (Bld) [Partial pressure] 111 mm Hg High 85-95 [facility] Comment on above: Order Comment: Speci men Type: ARTERIAL BLOOD SPECIMENOrdering Facility: [facility] Address: [address] Performed By: #### A LLBG ####[facility] [id number] [place] [address] [place] Oxyhemoglobin (BldA) [Mass fraction] 96 % Normal 95-98 [facility] Comment on above: Order Comment: Speci men Type: ARTERIAL BLOOD SPECIMENOrdering Facility: [facility] [facility] Address: [address] Performed By: #### A LLBG ####[facility] [id number] [place] [address] [place] pH (Bld) 7.35 [pH] Normal 7.35-7.45 [facility] Comment on above: Order Comment: Speci men Type: ARTERIAL BLOOD SPECIMENOrdering Facility: [facility] Address: [address] Performed By: #### A LLBG ####[facility] [id number] [place] [address] [place] Potassium [Moles/Vol] 4.3 mmol/L Normal 3.5-5.0 [facility] Comment on above: Order Comment: Speci men Type: ARTERIAL BLOOD SPECIMENOrdering Facility: [facility] Address: [address] [place] [id number] Performed By: #### A LLBG ####[facility] [id number] [place] [address] [place] Sodium [Moles/Vol] 134 mmol/L Low 136-144 [facility] Comment on above: Order Comment: Speci men Type: ARTERIAL BLOOD SPECIMENOrdering Facility: [facility] Address: [address] [place] [id number] Performed By: #### A LLBG ####[facility] [id number] [place] [address] [place] Base excess Calc (Bld) [Moles/Vol] 0 mmol/L Normal 0-2 [facility] Comment on above: Order Comment: Speci men Type: ARTERIAL BLOOD SPECIMENOrdering Facility: [facility] Address: [address] [place] [id number] Performed By: #### A LLBG ####[facility] [id number] [place] [address] [place] Body temperature 98.6 [degF] Normal [facility] Comment on above: Order Comment: Speci men Type: ARTERIAL BLOOD SPECIMENOrdering Facility: [facility] Address: [address] [place] [id number] Performed By: #### A LLBG ####[facility] [id number] [place] [address] [place] Calcium.ionized (Bld) [Mass/Vol] 1.19 mmol/L Normal 1.08-1.30 [facility] Comment on above: Order Comment: Speci men Type: ARTERIAL BLOOD SPECIMENOrdering Facility: [facility] Address: [address] [place] [address] Performed By: #### A LLBG ####[facility] [id number] [place] [address] [place] Calcium.ionized adjusted to pH 7.4 (BldA) [Moles/Vol] 1.17 mmol/L Normal 1.08-1.30 [facility] Comment on above: Order Comment: Speci men Type: ARTERIAL BLOOD SPECIMENOrdering Facility: [facility] Address: [address] [place] [address] Performed By: #### A LLBG ####[facility] [id number] [place] [address] [place] Carboxyhemoglobin (BldA) [Mass fraction] 1.7 % Normal 0.0-2.0 [facility] Comment on above: Order Comment: Speci men Type: ARTERIAL BLOOD SPECIMENOrdering Facility: [facility] Address: [address] [place] [address] Result Comment: Carb oxyhemoglobin Reference Range for Smokers: 2.0-8.0% Performed By: #### A LLBG ####[facility] [id number] [place] [address] [place] CO2 (Bld) [Partial pressure] 45 mm Hg Normal 36-46 [facility] Comment on above: Order Comment: Speci men Type: ARTERIAL BLOOD SPECIMENOrdering Facility: [facility] Address: [address] [place] [address] Performed By: #### A LLBG ####[facility] [id number] [place] [address] [place] CO2 [Moles/Vol] 27 mmol/L Normal 22-28 [facility] Comment on above: Order Comment: Speci men Type: ARTERIAL BLOOD SPECIMENOrdering Facility: [facility] Address: [address] Performed By: #### A LLBG ####[facility] [id number] [place] [address] [place] Glucose [Mass/Vol] 146 mg/dL High 60-105 [facility] Comment on above: Order Comment: Speci men Type: ARTERIAL BLOOD SPECIMENOrdering Facility: [facility] Address: [address] Performed By: #### A LLBG ####[facility] [id number] [place] [address] [place] HCO3 (Bld) [Moles/Vol] 25 mmol/L Normal 22-26 [facility] Comment on above: Order Comment: Speci men Type: ARTERIAL BLOOD SPECIMENOrdering Facility: [facility] Address: [address] [place] [id number] Performed By: #### A LLBG ####[facility] [id number] [place] [address] [place] Hematocrit (Bld) [Volume fraction] 43.5 % Normal 39.0-51.0 [facility] Comment on above: Order Comment: Speci men Type: ARTERIAL BLOOD SPECIMENOrdering Facility: [facility] Address: [address] Performed By: #### A LLBG ####[facility] [id number] [place] [address] [place] Hemoglobin (Bld) [Mass/Vol] 14.2 g/dL Normal 13.0-17.0 [facility] Comment on above: Order Comment: Speci men Type: ARTERIAL BLOOD SPECIMENOrdering Facility: [facility] Address: [address] Performed By: #### A LLBG ####[facility] [id number] [place] [address] [place] Lactate [Moles/Vol] 1.4 mmol/L Normal 0.5-2.2 [facility] Comment on above: Order Comment: Speci men Type: ARTERIAL BLOOD SPECIMENOrdering Facility: [facility] Address: [address] [place] [address] Performed By: #### A LLBG ####[facility] [id number] [address] [place] Methemoglobin (Bld) [Mass fraction] 1.0 % Normal 0.0-1.5 [facility] Comment on above: Order Comment: Speci men Type: ARTERIAL BLOOD SPECIMENOrdering Facility: [facility] Address: [address] [place] [address] Performed By: #### A LLBG ####[facility] [id number] [address] [place] O2 THERAPY [place] = Nasal Cannula Normal [facility] Comment on above: Order Comment: Speci men Type: ARTERIAL BLOOD SPECIMENOrdering Facility: [facility] Address: [address] [place] [id number] Performed By: #### A LLBG ####[facility] [id number] [place] [address] [place] Oxygen (Bld) [Partial pressure] 88 mm Hg Normal 85-95 [facility] Comment on above: Order Comment: Speci men Type: ARTERIAL BLOOD SPECIMENOrdering Facility: [facility] Address: [address] [place] [id number] Performed By: #### A LLBG ####[facility] [id number] [place] [address] [place] Oxyhemoglobin (BldA) [Mass fraction] 94 % Low 95-98 [facility] Comment on above: Order Comment: Speci men Type: ARTERIAL BLOOD SPECIMENOrdering Facility: [facility] Address: [address] Performed By: #### A LLBG ####[facility] [id number] [place] [address] [place] pH (Bld) 7.37 [pH] Normal 7.35-7.45 [facility] Comment on above: Order Comment: Speci men Type: ARTERIAL BLOOD SPECIMENOrdering Facility: [facility] Address: [address] Performed By: #### A LLBG ####[facility] [id number] [place] [address] [place] Potassium [Moles/Vol] 4.1 mmol/L Normal 3.5-5.0 [facility] Comment on above: Order Comment: Speci men Type: ARTERIAL BLOOD SPECIMENOrdering Facility: [facility] Address: [address] [place] [id number] Performed By: #### A LLBG ####[facility] [id number] [place] [address] [place] Sodium [Moles/Vol] 136 mmol/L Normal 136-144 [facility] Comment on above: Order Comment: Speci men Type: ARTERIAL BLOOD SPECIMENOrdering Facility: [facility] Address: [address] Performed By: #### A LLBG ####[facility] [id number] [place] [address] [place] Base excess Calc (Bld) [Moles/Vol] 0 mmol/L Normal 0-2 [facility] Comment on above: Order Comment: Speci men Type: ARTERIAL BLOOD SPECIMENOrdering Facility: [facility] Address: [address] [place] [id number] Performed By: #### A LLBG ####[facility] [id number] [place] [address] [place] Body temperature 98.6 [degF] Normal [facility] Comment on above: Order Comment: Speci men Type: ARTERIAL BLOOD SPECIMENOrdering Facility: [facility] Address: [address] [place] [address] Performed By: #### A LLBG ####[facility] [id number] [place] [address] [place] Calcium.ionized (Bld) [Mass/Vol] 1.19 mmol/L Normal 1.08-1.30 [facility] Comment on above: Order Comment: Speci men Type: ARTERIAL BLOOD SPECIMENOrdering Facility: [facility] Address: [address] [place] [address] Performed By: #### A LLBG ####[facility] [id number] [address] [place] Calcium.ionized adjusted to pH 7.4 (BldA) [Moles/Vol] 1.16 mmol/L Normal 1.08-1.30 [facility] Comment on above: Order Comment: Speci men Type: ARTERIAL BLOOD SPECIMENOrdering Facility: [facility] Address: [address] [place] [address] Performed By: #### A LLBG ####[facility] [id number] [place] [address] [place] Carboxyhemoglobin (BldA) [Mass fraction] 1.5 % Normal 0.0-2.0 [facility] Comment on above: Order Comment: Speci men Type: ARTERIAL BLOOD SPECIMENOrdering Facility: [facility] Address: [address] [place] [address] Result Comment: Carb oxyhemoglobin Reference Range for Smokers: 2.0-8.0% Performed By: #### A LLBG ####[facility] [id number] [place] [address] [place] CO2 (Bld) [Partial pressure] 47 mm Hg High 36-46 [facility] Comment on above: Order Comment: Speci men Type: ARTERIAL BLOOD SPECIMENOrdering Facility: [facility] Address: [address] Performed By: #### A LLBG ####[facility] [id number] [place] [address] [place] CO2 [Moles/Vol] 27 mmol/L Normal 22-28 [facility] Comment on above: Order Comment: Speci men Type: ARTERIAL BLOOD SPECIMENOrdering Facility: [facility] Address: [address] Performed By: #### A LLBG ####[facility] [id number] [place] [address] [place] Glucose [Mass/Vol] 157 mg/dL High 60-105 [facility] Comment on above: Order Comment: Speci men Type: ARTERIAL BLOOD SPECIMENOrdering Facility: [facility] Address: [address] Performed By: #### A LLBG ####[facility] [id number] [place] [address] [place] HCO3 (Bld) [Moles/Vol] 26 mmol/L Normal 22-26 [facility] Comment on above: Order Comment: Speci men Type: ARTERIAL BLOOD SPECIMENOrdering Facility: [facility] Address: [address] Performed By: #### A LLBG ####[facility] [id number] [place] [address] [place] Hematocrit (Bld) [Volume fraction] 42.9 % Normal 39.0-51.0 [facility] Comment on above: Order Comment: Speci men Type: ARTERIAL BLOOD SPECIMENOrdering Facility: [facility] Address: [address] Performed By: #### A LLBG ####[facility] [id number] [address] [place] Hemoglobin (Bld) [Mass/Vol] 14.0 g/dL Normal 13.0-17.0 [facility] Comment on above: Order Comment: Speci men Type: ARTERIAL BLOOD SPECIMENOrdering Facility: [facility] Address: [address] [place], [place] [id number] Performed By: #### A LLBG ####[facility] [id number] [place] [address] [place] Lactate [Moles/Vol] 1.6 mmol/L Normal 0.5-2.2 [facility] Comment on above: Order Comment: Speci men Type: ARTERIAL BLOOD SPECIMENOrdering Facility: [facility] Address: [address] [place] [id number] Performed By: #### A LLBG ####[facility] [id number] [address] [place] Methemoglobin (Bld) [Mass fraction] 1.1 % Normal 0.0-1.5 [facility] Comment on above: Order Comment: Speci men Type: ARTERIAL BLOOD SPECIMENOrdering Facility: [facility] Address: [address] [place] [address] Performed By: #### A LLBG ####[facility] [id number] [place] [address] [place] O2 THERAPY NC = Nasal Cannula Normal [facility] Comment on above: Order Comment: Speci men Type: ARTERIAL BLOOD SPECIMENOrdering Facility: [facility] Address: [address] [place] [address] Performed By: #### A LLBG ####[facility] [id number] [address] [place] Oxygen (Bld) [Partial pressure] 88 mm Hg Normal 85-95 [facility] Comment on above: Order Comment: Speci men Type: ARTERIAL BLOOD SPECIMENOrdering Facility: [facility] Address: [address] Performed By: #### A LLBG ####[facility] [id number] [place] [address] [place] Oxyhemoglobin (BldA) [Mass fraction] 94 % Low 95-98 [facility] Comment on above: Order Comment: Speci men Type: ARTERIAL BLOOD SPECIMENOrdering Facility: [facility] Address: [address] Performed By: #### A LLBG ####[facility] [id number] [place] [address] [place] pH (Bld) 7.36 [pH] Normal 7.35-7.45 [facility] Comment on above: Order Comment: Speci men Type: ARTERIAL BLOOD SPECIMENOrdering Facility: [facility] Address: [address] Performed By: #### A LLBG ####[facility] [id number] [place] [address] [place] Potassium [Moles/Vol] 4.0 mmol/L Normal 3.5-5.0 [facility] Comment on above: Order Comment: Speci men Type: ARTERIAL BLOOD SPECIMENOrdering Facility: [facility] Address: [address] [place] [address] Performed By: #### A LLBG ####[facility] [id number] [place] [address] [place] Sodium [Moles/Vol] 137 mmol/L Normal 136-144 [facility] Comment on above: Order Comment: Speci men Type: ARTERIAL BLOOD SPECIMENOrdering Facility: [facility] Address: [address] Performed By: #### A LLBG ####[facility] [id number] [place] [address] [place] Base excess Calc (Bld) [Moles/Vol] 0 mmol/L Normal 0-2 [facility] Comment on above: Order Comment: Speci men Type: ARTERIAL BLOOD SPECIMENOrdering Facility: [facility] Address: [address] [place] [address] Performed By: #### A LLBG ####[facility] [id number] [place] [address] [place] Body temperature 98.6 [degF] Normal [facility] Comment on above: Order Comment: Speci men Type: ARTERIAL BLOOD SPECIMENOrdering Facility: [facility] Address: [address] [place] [address] Performed By: #### A LLBG ####[facility] [id number] [address] [place] Calcium.ionized (Bld) [Mass/Vol] 1.18 mmol/L Normal 1.08-1.30 [facility] Comment on above: Order Comment: Speci men Type: ARTERIAL BLOOD SPECIMENOrdering Facility: [facility] Address: [address] [place] [id number] Performed By: #### A LLBG ####[facility] [id number] [address] [place] Calcium.ionized adjusted to pH 7.4 (BldA) [Moles/Vol] 1.16 mmol/L Normal 1.08-1.30 [facility] Comment on above: Order Comment: Speci men Type: ARTERIAL BLOOD SPECIMENOrdering Facility: [facility] Address: [address] [place] [id number] Performed By: #### A LLBG ####[facility] [id number] [place] [address] [id number] [address] [place] Carboxyhemoglobin (BldA) [Mass fraction] 1.4 % Normal 0.0-2.0 [facility] Comment on above: Order Comment: Speci men Type: ARTERIAL BLOOD SPECIMENOrdering Facility: [facility] Address: [address] [place] [address] Result Comment: Carb oxyhemoglobin Reference Range for Smokers: 2.0-8.0% Performed By: #### A LLBG ####[facility] [id number] [place] [address] [place] CO2 (Bld) [Partial pressure] 44 mm Hg Normal 36-46 [facility] Comment on above: Order Comment: Speci men Type: ARTERIAL BLOOD SPECIMENOrdering Facility: [facility] Address: [address] [place] [address] Performed By: #### A LLBG ####[facility] [id number] [place] [address] [place] CO2 [Moles/Vol] 26 mmol/L Normal 22-28 [facility] Comment on above: Order Comment: Speci men Type: ARTERIAL BLOOD SPECIMENOrdering Facility: [facility] Address: [address] [place] [address] Performed By: #### A LLBG ####[facility] [id number] [place] [address] [place] Glucose [Mass/Vol] 154 mg/dL High 60-105 [facility] Comment on above: Order Comment: Speci men Type: ARTERIAL BLOOD SPECIMENOrdering Facility: [facility] Address: [address] [place] [address] Performed By: #### A LLBG ####[facility] [id number] [place] [address] [place] HCO3 (Bld) [Moles/Vol] 25 mmol/L Normal 22-26 [facility] Comment on above: Order Comment: Speci men Type: ARTERIAL BLOOD SPECIMENOrdering Facility: [facility] Address: [address] Performed By: #### A LLBG ####[facility] [id number] [address] [place] Hematocrit (Bld) [Volume fraction] 41.6 % Normal 39.0-51.0 [facility] Comment on above: Order Comment: Speci men Type: ARTERIAL BLOOD SPECIMENOrdering Facility: [facility] Address: [address] Performed By: #### A LLBG ####[facility] [id number] [place] [address] [place] Hemoglobin (Bld) [Mass/Vol] 13.5 g/dL Normal 13.0-17.0 [facility] Comment on above: Order Comment: Speci men Type: ARTERIAL BLOOD SPECIMENOrdering Facility: [facility] Address: [address] [place] [id number] Performed By: #### A LLBG ####[facility] [id number] [place] [address] [place] Lactate [Moles/Vol] 1.9 mmol/L Normal 0.5-2.2 [facility] Comment on above: Order Comment: Speci men Type: ARTERIAL BLOOD SPECIMENOrdering Facility: [facility] Address: [address] Performed By: #### A LLBG ####[facility] [id number] [place] [address] [place] Methemoglobin (Bld) [Mass fraction] 0.9 % Normal 0.0-1.5 [facility] Comment on above: Order Comment: Speci men Type: ARTERIAL BLOOD SPECIMENOrdering Facility: [facility] Address: [address] Performed By: #### A LLBG ####[facility] [id number] [place] [address] [place] O2 THERAPY NC = Nasal Cannula Normal [facility] Comment on above: Order Comment: Speci men Type: ARTERIAL BLOOD SPECIMENOrdering Facility: [facility] Address: [address] [place] [address] Performed By: #### A LLBG ####[facility] [id number] [place] [address] [place] Oxygen (Bld) [Partial pressure] 87 mm Hg Normal 85-95 [facility] Comment on above: Order Comment: Speci men Type: ARTERIAL BLOOD SPECIMENOrdering Facility: [facility] Address: [address] [place] [address] Performed By: #### A LLBG ####[facility] [id number] [place] [address] [place] Oxyhemoglobin (BldA) [Mass fraction] 95 % Normal 95-98 [facility] Comment on above: Order Comment: Speci men Type: ARTERIAL BLOOD SPECIMENOrdering Facility: [facility] Address: [address] [place] [id number] Performed By: #### A LLBG ####[facility] [id number] [place] [address] [place] pH (Bld) 7.37 [pH] Normal 7.35-7.45 [facility] Comment on above: Order Comment: Speci men Type: ARTERIAL BLOOD SPECIMENOrdering Facility: [facility] Address: [address] [place] [id number] Performed By: #### A LLBG ####[facility] [id number] [place] [address] [place] Potassium [Moles/Vol] 4.1 mmol/L Normal 3.5-5.0 [facility] Comment on above: Order Comment: Speci men Type: ARTERIAL BLOOD SPECIMENOrdering Facility: [facility] Address: [address] Performed By: #### A LLBG ####[facility] [id number] [place] [address] [place] Sodium [Moles/Vol] 135 mmol/L Low 136-144 [facility] Comment on above: Order Comment: Speci men Type: ARTERIAL BLOOD SPECIMENOrdering Facility: [facility] Address: [address] Performed By: #### A LLBG ####[facility] [id number] [place] [address] [place] Base excess Calc (Bld) [Moles/Vol] 0 mmol/L Normal 0-2 [facility] Comment on above: Order Comment: Speci men Type: ARTERIAL BLOOD SPECIMENOrdering Facility: [facility] Address: [address] Performed By: #### A LLBG ####[facility] [id number] [place] [address] [place] Body temperature 98.6 [degF] Normal [facility] Comment on above: Order Comment: Speci men Type: ARTERIAL BLOOD SPECIMENOrdering Facility: [facility] Address: [address] Performed By: #### A LLBG ####[facility] [id number] [address] [place] Calcium.ionized (Bld) [Mass/Vol] 1.16 mmol/L Normal 1.08-1.30 [facility] Comment on above: Order Comment: Speci men Type: ARTERIAL BLOOD SPECIMENOrdering Facility: [facility] Address: [address] Performed By: #### A LLBG ####[facility] [id number] [place] [address] [place] Calcium.ionized adjusted to pH 7.4 (BldA) [Moles/Vol] 1.16 mmol/L Normal 1.08-1.30 [facility] Comment on above: Order Comment: Speci men Type: ARTERIAL BLOOD SPECIMENOrdering Facility: [facility] Address: [address] [place] [address] Performed By: #### A LLBG ####[facility] [id number] [place] [address] [place] Carboxyhemoglobin (BldA) [Mass fraction] 2.2 % High 0.0-2.0 [facility] Comment on above: Order Comment: Speci men Type: ARTERIAL BLOOD SPECIMENOrdering Facility: [facility] Address: [address] [place] [address] Result Comment: Carb oxyhemoglobin Reference Range for Smokers: 2.0-8.0% Performed By: #### A LLBG ####[facility] [id number] [place] [address] [place] CO2 (Bld) [Partial pressure] 41 mm Hg Normal 36-46 [facility] Comment on above: Order Comment: Speci men Type: ARTERIAL BLOOD SPECIMENOrdering Facility: [facility] Address: [address] [place] [address] Performed By: #### A LLBG ####[facility] [id number] [place] [address] [place] CO2 [Moles/Vol] 26 mmol/L Normal 22-28 [facility] Comment on above: Order Comment: Speci men Type: ARTERIAL BLOOD SPECIMENOrdering Facility: [facility] Address: [address] [place] [id number] Performed By: #### A LLBG ####[facility] [id number] [place] [address] [place] Glucose [Mass/Vol] 179 mg/dL High 60-105 [facility] Comment on above: Order Comment: Speci men Type: ARTERIAL BLOOD SPECIMENOrdering Facility: [facility] Address: [address] Performed By: #### A LLBG ####[facility] [id number] [place] [address] [place] HCO3 (Bld) [Moles/Vol] 25 mmol/L Normal 22-26 [facility] Comment on above: Order Comment: Speci men Type: ARTERIAL BLOOD SPECIMENOrdering Facility: [facility] Address: [address] Performed By: #### A LLBG ####[facility] [id number] [place] [address] [place] Hematocrit (Bld) [Volume fraction] 40.1 % Normal 39.0-51.0 [facility] Comment on above: Order Comment: Speci men Type: ARTERIAL BLOOD SPECIMENOrdering Facility: [facility] Address: [address] Performed By: #### A LLBG ####[facility] [id number] [place] [address] [place] Hemoglobin (Bld) [Mass/Vol] 13.0 g/dL Normal 13.0-17.0 [facility] Comment on above: Order Comment: Speci men Type: ARTERIAL BLOOD SPECIMENOrdering Facility: [facility] Address: [address] Performed By: #### A LLBG ####[facility] [id number] [place] [address] [place] Lactate [Moles/Vol] 2.2 mmol/L Normal 0.5-2.2 [facility] Comment on above: Order Comment: Speci men Type: ARTERIAL BLOOD SPECIMENOrdering Facility: [facility] Address: [address] Performed By: #### A LLBG ####[facility] [id number] [place] [address] [place] Methemoglobin (Bld) [Mass fraction] 0.7 % Normal 0.0-1.5 [facility] Comment on above: Order Comment: Speci men Type: ARTERIAL BLOOD SPECIMENOrdering Facility: [facility] Address: [address] [place] [id number] Performed By: #### A LLBG ####[facility] [id number] [place] [address] [place] O2 THERAPY NC = Nasal Cannula Normal [facility] Comment on above: Order Comment: Speci men Type: ARTERIAL BLOOD SPECIMENOrdering Facility: [facility] Address: [address] [place] [id number] Performed By: #### A LLBG ####[facility] [id number] [place] [address] [place] Oxygen (Bld) [Partial pressure] 70 mm Hg Low 85-95 [facility] Comment on above: Order Comment: Speci men Type: ARTERIAL BLOOD SPECIMENOrdering Facility: [facility] Address: [address] [place] [address] Performed By: #### A LLBG ####[facility] [id number] [place] [address] [place] Oxyhemoglobin (BldA) [Mass fraction] 92 % Low 95-98 [facility] Comment on above: Order Comment: Speci men Type: ARTERIAL BLOOD SPECIMENOrdering Facility: [facility] Address: [address] [place] [address] Performed By: #### A LLBG ####[facility] [id number] [place] [id number] [place] pH (Bld) 7.39 [pH] Normal 7.35-7.45 [facility] Comment on above: Order Comment: Speci men Type: ARTERIAL BLOOD SPECIMENOrdering Facility: [facility] Address: [address] Performed By: #### A LLBG ####[facility] [id number] [place] [address] [place] Potassium [Moles/Vol] 4.5 mmol/L Normal 3.5-5.0 [facility] Comment on above: Order Comment: Speci men Type: ARTERIAL BLOOD SPECIMENOrdering Facility: [facility] Address: [address] Performed By: #### A LLBG ####[facility] [id number] [place] [address] [place] Sodium [Moles/Vol] 135 mmol/L Low 136-144 [facility] Comment on above: Order Comment: Speci men Type: ARTERIAL BLOOD SPECIMENOrdering Facility: [facility] Address: [address] Performed By: #### A LLBG ####[facility] [id number] [place] [address] [place] Base deficit (BldA) [Moles/Vol] -1 mmol/L Normal -2-0 [facility] Comment on above: Order Comment: Speci men Type: ARTERIAL BLOOD SPECIMENOrdering Facility: [facility] Address: [address] Performed By: #### A LLBG ####[facility] [id number] [place] [address] [place] Body temperature 98.6 [degF] Normal [facility] Comment on above: Order Comment: Speci men Type: ARTERIAL BLOOD SPECIMENOrdering Facility: [facility] Address: [address] Performed By: #### A LLBG ####[facility] [id number] [place] [address] [place] Calcium.ionized (Bld) [Mass/Vol] 1.21 mmol/L Normal 1.08-1.30 [facility] Comment on above: Order Comment: Speci men Type: ARTERIAL BLOOD SPECIMENOrdering Facility: [facility] Address: [address] [place] [address] Performed By: #### A LLBG ####[facility] [id number] [place] [address] [place] Calcium.ionized adjusted to pH 7.4 (BldA) [Moles/Vol] 1.18 mmol/L Normal 1.08-1.30 [facility] Comment on above: Order Comment: Speci men Type: ARTERIAL BLOOD SPECIMENOrdering Facility: [facility] Address: [address] [place] [address] Performed By: #### A LLBG ####[facility] [id number] [place] [address] [place] Carboxyhemoglobin (BldA) [Mass fraction] 1.0 % Normal 0.0-2.0 [facility] Comment on above: Order Comment: Speci men Type: ARTERIAL BLOOD SPECIMENOrdering Facility: [facility] Address: [address] [place] [address] Result Comment: Carb oxyhemoglobin Reference Range for Smokers: 2.0-8.0% Performed By: #### A LLBG ####[facility] [id number] [place] [address] [place] CO2 (Bld) [Partial pressure] 45 mm Hg Normal 36-46 [facility] Comment on above: Order Comment: Speci men Type: ARTERIAL BLOOD SPECIMENOrdering Facility: [facility] Address: [address] [place] [address] Performed By: #### A LLBG ####[facility] [id number] [place] [address] [place] CO2 [Moles/Vol] 26 mmol/L Normal 22-28 [facility] Comment on above: Order Comment: Speci men Type: ARTERIAL BLOOD SPECIMENOrdering Facility: [facility] Address: [address] [place] [address] Performed By: #### A LLBG ####[facility] [id number] [place] [address] [place] Glucose [Mass/Vol] 166 mg/dL High 60-105 [facility] Comment on above: Order Comment: Speci men Type: ARTERIAL BLOOD SPECIMENOrdering Facility: [facility] Address: [address] [place] [address] Performed By: #### A LLBG ####[facility] [id number] [place] [address] [place] HCO3 (Bld) [Moles/Vol] 24 mmol/L Normal 22-26 [facility] Comment on above: Order Comment: Speci men Type: ARTERIAL BLOOD SPECIMENOrdering Facility: [facility] Address: [address] [place] [address] Performed By: #### A LLBG ####[facility] [id number] [place] [address] [place] Hematocrit (Bld) [Volume fraction] 41.0 % Normal 39.0-51.0 [facility] Comment on above: Order Comment: Speci men Type: ARTERIAL BLOOD SPECIMENOrdering Facility: [facility] Address: [address] [place] [id number] Performed By: #### A LLBG ####[facility] [id number] [place] [address] [place] Hemoglobin (Bld) [Mass/Vol] 13.3 g/dL Normal 13.0-17.0 [facility] Comment on above: Order Comment: Speci men Type: ARTERIAL BLOOD SPECIMENOrdering Facility: [facility] Address: [address] Performed By: #### A LLBG ####[facility] [id number] [address] [place] Lactate [Moles/Vol] 1.9 mmol/L Normal 0.5-2.2 [facility] Comment on above: Order Comment: Speci men Type: ARTERIAL BLOOD SPECIMENOrdering Facility: [facility] Address: [address] Performed By: #### A LLBG ####[facility] [id number] [place] [address] [place] Methemoglobin (Bld) [Mass fraction] 1.5 % Normal 0.0-1.5 [facility] Comment on above: Order Comment: Speci men Type: ARTERIAL BLOOD SPECIMENOrdering Facility: [facility] Address: [address] [place] [id number] Performed By: #### A LLBG ####[facility] [id number] [address] [place] O2 THERAPY Positive Normal [facility] Comment on above: Order Comment: Speci men Type: ARTERIAL BLOOD SPECIMENOrdering Facility: [facility] Address: [address] [place] [address] Performed By: #### A LLBG ####[facility] [id number] [address] [place] Oxygen (Bld) [Partial pressure] 77 mm Hg Low 85-95 [facility] Comment on above: Order Comment: Speci men Type: ARTERIAL BLOOD SPECIMENOrdering Facility: [facility] Address: [address] Performed By: #### A LLBG ####[facility] [id number] [place] [address] [place] Oxyhemoglobin (BldA) [Mass fraction] 93 % Low 95-98 [facility] Comment on above: Order Comment: Speci men Type: ARTERIAL BLOOD SPECIMENOrdering Facility: [facility] Address: [address] [place] [id number] Performed By: #### A LLBG ####[facility] [id number] [place] [address] [place] pH (Bld) 7.36 [pH] Normal 7.35-7.45 [facility] Comment on above: Order Comment: Speci men Type: ARTERIAL BLOOD SPECIMENOrdering Facility: [facility] Address: [address] [place] [id number] Performed By: #### A LLBG ####[facility] [id number] [place] [address] [place] Potassium [Moles/Vol] 4.7 mmol/L Normal 3.5-5.0 [facility] Comment on above: Order Comment: Speci men Type: ARTERIAL BLOOD SPECIMENOrdering Facility: [facility] Address: [address] [place] [id number] Performed By: #### A LLBG ####[facility] [id number] [place] [address] [place] Sodium [Moles/Vol] 137 mmol/L Normal 136-144 [facility] Comment on above: Order Comment: Speci men Type: ARTERIAL BLOOD SPECIMENOrdering Facility: [facility] Address: [address] [place] [id number] Performed By: #### A LLBG ####[facility] [id number] [place] [address] [place] Base deficit (BldA) [Moles/Vol] -1 mmol/L Normal -2-0 [facility] Comment on above: Order Comment: Speci men Type: ARTERIAL BLOOD SPECIMENOrdering Facility: [facility] Address: [address] Performed By: #### A LLBG ####[facility] [id number] [place] [address] [place] Body temperature 98.6 [degF] Normal [facility] Comment on above: Order Comment: Speci men Type: ARTERIAL BLOOD SPECIMENOrdering Facility: [facility] Address: [address] Performed By: #### A LLBG ####[facility] [id number] [place] [address] [place] Calcium.ionized (Bld) [Mass/Vol] 1.18 mmol/L Normal 1.08-1.30 [facility] Comment on above: Order Comment: Speci men Type: ARTERIAL BLOOD SPECIMENOrdering Facility: [facility] Address: [address] Performed By: #### A LLBG ####[facility] [id number] [place] [address] [place] Calcium.ionized adjusted to pH 7.4 (BldA) [Moles/Vol] 1.15 mmol/L Normal 1.08-1.30 [facility] Comment on above: Order Comment: Speci men Type: ARTERIAL BLOOD SPECIMENOrdering Facility: [facility] Address: [address] Performed By: #### A LLBG ####[facility] [id number] [place] [address] [place] Carboxyhemoglobin (BldA) [Mass fraction] 1.0 % Normal 0.0-2.0 [facility] Comment on above: Order Comment: Speci men Type: ARTERIAL BLOOD SPECIMENOrdering Facility: [facility] Address: [address] Result Comment: Carb oxyhemoglobin Reference Range for Smokers: 2.0-8.0% Performed By: #### A LLBG ####[facility] [id number] [place] [address] [place] CO2 (Bld) [Partial pressure] 45 mm Hg Normal 36-46 [facility] Comment on above: Order Comment: Speci men Type: ARTERIAL BLOOD SPECIMENOrdering Facility: [facility] Address: [address] [place] [address] Performed By: #### A LLBG ####[facility] [id number] [place] [address] [place] CO2 [Moles/Vol] 25 mmol/L Normal 22-28 [facility] Comment on above: Order Comment: Speci men Type: ARTERIAL BLOOD SPECIMENOrdering Facility: [facility] Address: [address] [place] [address] Performed By: #### A LLBG ####[facility] [id number] [place] [address] [place] Glucose [Mass/Vol] 157 mg/dL High 60-105 [facility] Comment on above: Order Comment: Speci men Type: ARTERIAL BLOOD SPECIMENOrdering Facility: [facility] Address: [address] [place] [address] Performed By: #### A LLBG ####[facility] [id number] [place] [address] [place] HCO3 (Bld) [Moles/Vol] 24 mmol/L Normal 22-26 [facility] Comment on above: Order Comment: Speci men Type: ARTERIAL BLOOD SPECIMENOrdering Facility: [facility] Address: [address] [place] [id number] Performed By: #### A LLBG ####[facility] [id number] [place] [address] [place] Hematocrit (Bld) [Volume fraction] 41.6 % Normal 39.0-51.0 [facility] Comment on above: Order Comment: Speci men Type: ARTERIAL BLOOD SPECIMENOrdering Facility: [facility] Address: [address] [place] [address] Performed By: #### A LLBG ####[facility] [id number] [place] [address] [place] Hemoglobin (Bld) [Mass/Vol] 13.5 g/dL Normal 13.0-17.0 [facility] Comment on above: Order Comment: Speci men Type: ARTERIAL BLOOD SPECIMENOrdering Facility: [facility] Address: [address] Performed By: #### A LLBG ####[facility] [id number] [place] [address] [place] Lactate [Moles/Vol] 2.1 mmol/L Normal 0.5-2.2 [facility] Comment on above: Order Comment: Speci men Type: ARTERIAL BLOOD SPECIMENOrdering Facility: [facility] Address: [address] Performed By: #### A LLBG ####[facility] [id number] [place] [address] [place] LITERS 5 Liters/min Normal [facility] Comment on above: Order Comment: Speci men Type: ARTERIAL BLOOD SPECIMENOrdering Facility: [facility] Address: [address] Performed By: #### A LLBG ####[facility] [id number] [place] [address] [place] Methemoglobin (Bld) [Mass fraction] 1.1 % Normal 0.0-1.5 [facility] Comment on above: Order Comment: Speci men Type: ARTERIAL BLOOD SPECIMENOrdering Facility: [facility] Address: [address] Performed By: #### A LLBG ####[facility] [id number] [place] [address] [place] O2 THERAPY Positive Normal [facility] Comment on above: Order Comment: Speci men Type: ARTERIAL BLOOD SPECIMENOrdering Facility: [facility] Address: [address] [place] [address] Performed By: #### A LLBG ####[facility] [id number] [place] [address] [place] Oxygen (Bld) [Partial pressure] 111 mm Hg High 85-95 [facility] Comment on above: Order Comment: Speci men Type: ARTERIAL BLOOD SPECIMENOrdering Facility: [facility] Address: [address] [place] [address] Performed By: #### A LLBG ####[facility] [id number] [place] [address] [place] Oxyhemoglobin (BldA) [Mass fraction] 96 % Normal 95-98 [facility] Comment on above: Order Comment: Speci men Type: ARTERIAL BLOOD SPECIMENOrdering Facility: [facility] Address: [address] [place] [id number] Performed By: #### A LLBG ####[facility] [id number] [place] [address] [place] pH (Bld) 7.35 [pH] Normal 7.35-7.45 [facility] Comment on above: Order Comment: Speci men Type: ARTERIAL BLOOD SPECIMENOrdering Facility: [facility] Address: [address] [place] [id number] Performed By: #### A LLBG ####[facility] [id number] [place] [address] [place] Potassium [Moles/Vol] 4.5 mmol/L Normal 3.5-5.0 [facility] Comment on above: Order Comment: Speci men Type: ARTERIAL BLOOD SPECIMENOrdering Facility: [facility] Address: [address] Performed By: #### A LLBG ####[facility] [id number] [place] [address] [place] Sodium [Moles/Vol] 135 mmol/L Low 136-144 [facility] Comment on above: Order Comment: Speci men Type: ARTERIAL BLOOD SPECIMENOrdering Facility: [facility] Address: [address] Performed By: #### A LLBG ####[facility] [id number] [place] [address] [place] Base deficit (BldA) [Moles/Vol] -1 mmol/L Normal -2-0 [facility] Comment on above: Order Comment: Speci men Type: ARTERIAL BLOOD SPECIMENOrdering Facility: [facility] Address: [address] [place] [address] Performed By: #### A LLBG ####[facility] [id number] [place] [address] [place] Body temperature 98.6 [degF] Normal [facility] Comment on above: Order Comment: Speci men Type: ARTERIAL BLOOD SPECIMENOrdering Facility: [facility] Address: [address] Performed By: #### A LLBG ####[facility] [id number] [place] [address] [place] Calcium.ionized (Bld) [Mass/Vol] 1.19 mmol/L Normal 1.08-1.30 [facility] Comment on above: Order Comment: Speci men Type: ARTERIAL BLOOD SPECIMENOrdering Facility: [facility] Address: [address] Performed By: #### A LLBG ####[facility] [id number] [place] [address] [place] Calcium.ionized adjusted to pH 7.4 (BldA) [Moles/Vol] 1.15 mmol/L Normal 1.08-1.30 [facility] Comment on above: Order Comment: Speci men Type: ARTERIAL BLOOD SPECIMENOrdering Facility: [facility] Address: [address] [place] [address] Performed By: #### A LLBG ####[facility] [id number] [place] [address] [place] Carboxyhemoglobin (BldA) [Mass fraction] 0.7 % Normal 0.0-2.0 [facility] Comment on above: Order Comment: Speci men Type: ARTERIAL BLOOD SPECIMENOrdering Facility: [facility] Address: [address] [place] [address] Result Comment: Carb oxyhemoglobin Reference Range for Smokers: 2.0-8.0% Performed By: #### A LLBG ####[facility] [id number] [place] [address] [place] CO2 (Bld) [Partial pressure] 47 mm Hg High 36-46 [facility] Comment on above: Order Comment: Speci men Type: ARTERIAL BLOOD SPECIMENOrdering Facility: [facility] Address: [address] [place] [address] Performed By: #### A LLBG ####[facility] [id number] [place] [address] [place] CO2 [Moles/Vol] 26 mmol/L Normal 22-28 [facility] Comment on above: Order Comment: Speci men Type: ARTERIAL BLOOD SPECIMENOrdering Facility: [facility] Address: [address] [place] [address] Performed By: #### A LLBG ####[facility] [id number] [place] [address] [place] Glucose [Mass/Vol] 156 mg/dL High 60-105 [facility] Comment on above: Order Comment: Speci men Type: ARTERIAL BLOOD SPECIMENOrdering Facility: [facility] Address: [address] [place] [id number] Performed By: #### A LLBG ####[facility] [id number] [place] [address] [place] HCO3 (Bld) [Moles/Vol] 25 mmol/L Normal 22-26 [facility] Comment on above: Order Comment: Speci men Type: ARTERIAL BLOOD SPECIMENOrdering Facility: [facility] Address: [address] Performed By: #### A LLBG ####[facility] [id number] [place] [address] [place] Hematocrit (Bld) [Volume fraction] 40.8 % Normal 39.0-51.0 [facility] Comment on above: Order Comment: Speci men Type: ARTERIAL BLOOD SPECIMENOrdering Facility: [facility] Address: [address] [place] [id number] Performed By: #### A LLBG ####[facility] [id number] [place] [address] [place] Hemoglobin (Bld) [Mass/Vol] 13.3 g/dL Normal 13.0-17.0 [facility] Comment on above: Order Comment: Speci men Type: ARTERIAL BLOOD SPECIMENOrdering Facility: [facility] Address: [address] Performed By: #### A LLBG ####[facility] [id number] [place] [address] [place] Lactate [Moles/Vol] 2.3 mmol/L High 0.5-2.2 [facility] Comment on above: Order Comment: Speci men Type: ARTERIAL BLOOD SPECIMENOrdering Facility: [facility] Address: [address] [place] [address] Performed By: #### A LLBG ####[facility] [id number] [place] [address] [place] LITERS 5 Liters/min Normal [facility] Comment on above: Order Comment: Speci men Type: ARTERIAL BLOOD SPECIMENOrdering Facility: [facility] Address: [address] Performed By: #### A LLBG ####[facility] [id number] [place] [address] [place] Methemoglobin (Bld) [Mass fraction] 1.1 % Normal 0.0-1.5 [facility] Comment on above: Order Comment: Speci men Type: ARTERIAL BLOOD SPECIMENOrdering Facility: [facility] Address: [address] Performed By: #### A LLBG ####[facility] [id number] [place] [address] [place] O2 THERAPY Positive Normal [facility] Comment on above: Order Comment: Speci men Type: ARTERIAL BLOOD SPECIMENOrdering Facility: [facility] Address: [address] [place] [address] Performed By: #### A LLBG ####[facility] [id number] [place] [address] [place] Oxygen (Bld) [Partial pressure] 87 mm Hg Normal 85-95 [facility] Comment on above: Order Comment: Speci men Type: ARTERIAL BLOOD SPECIMENOrdering Facility: [facility] Address: [address] [place] [address] Performed By: #### A LLBG ####[facility] [id number] [place] [id number] [place] Oxyhemoglobin (BldA) [Mass fraction] 95 % Normal 95-98 [facility] Comment on above: Order Comment: Speci men Type: ARTERIAL BLOOD SPECIMENOrdering Facility: [facility] Address: [address] [place] [address] Performed By: #### A LLBG ####[facility] [id number] [place] [address] [place] pH (Bld) 7.34 [pH] Low 7.35-7.45 [facility] Comment on above: Order Comment: Speci men Type: ARTERIAL BLOOD SPECIMENOrdering Facility: [facility] Address: [address] Performed By: #### A LLBG ####[facility] [id number] [place] [address] [place] Potassium [Moles/Vol] 4.6 mmol/L Normal 3.5-5.0 [facility] Comment on above: Order Comment: Speci men Type: ARTERIAL BLOOD SPECIMENOrdering Facility: [facility] Address: [address] Performed By: #### A LLBG ####[facility] [id number] [place] [address] [place] Sodium [Moles/Vol] 136 mmol/L Normal 136-144 [facility] Comment on above: Order Comment: Speci men Type: ARTERIAL BLOOD SPECIMENOrdering Facility: [facility] Address: [address] Performed By: #### A LLBG ####[facility] [id number] [place] [address] [place] CBC panel Auto (Bld)on 07-20 Erythrocyte distribution width (RBC) [Ratio] 12.9 % Normal 11.5-15.0 [facility] Comment on above: Order Comment: Speci men Type: BLOOD SPECIMENOrdering Facility: [facility] Address: [address] Performed By: #### 5 8410-2 ####[facility] [id number] [place] [address] [place] Hematocrit (Bld) [Volume fraction] 38.7 % Low 39.0-51.0 [facility] Comment on above: Order Comment: Speci men Type: BLOOD SPECIMENOrdering Facility: [facility] Address: [address] [place] [address] Performed By: #### 5 8410-2 ####[facility] [id number] [place] [address] [place] Hemoglobin (Bld) [Mass/Vol] 13.1 g/dL Normal 13.0-17.0 [facility] Comment on above: Order Comment: Speci men Type: BLOOD SPECIMENOrdering Facility: [facility] Address: [address] [place] [address] Performed By: #### 5 8410-2 ####[facility] [id number] [address] [place] [facility] MCH (RBC) [Entitic mass] 28.3 pg Normal 26.0-34.0 [facility] Comment on above: Order Comment: Speci men Type: BLOOD SPECIMENOrdering Facility: [facility] Address: [address] [place] [address] Performed By: #### 5 8410-2 ####[facility] [id number] [address] [place] MCHC (RBC) [Mass/Vol] 33.9 g/dL Normal 30.5-36.0 [facility] Comment on above: Order Comment: Speci men Type: BLOOD SPECIMENOrdering Facility: [facility] Address: [address] [place] [address] Performed By: #### 5 8410-2 ####[facility] [id number] [address] [facility] MCV (RBC) [Entitic vol] 83.6 fL Normal 80.0-100.0 [facility] Comment on above: Order Comment: Speci men Type: BLOOD SPECIMENOrdering Facility: [facility] Address: [address] [place] [id number] Performed By: #### 5 8410-2 ####[facility] [id number] [place] [address] [place] Nucleated RBC (Bld) [#/Vol] 10*3/uL Normal <0.01 [facility] Comment on above: Order Comment: Speci men Type: BLOOD SPECIMENOrdering Facility: [facility] Address: [address] [place] [id number] Performed By: #### 5 8410-2 ####[facility] [id number] [place] [address] [place] Platelet mean volume (Bld) [Entitic vol] 9.8 fL Normal 9.0-12.7 [facility] Comment on above: Order Comment: Speci men Type: BLOOD SPECIMENOrdering Facility: [facility] Address: [address] [place] [id number] Performed By: #### 5 8410-2 ####[facility] [id number] [place] [address] [place] Platelets (Bld) [#/Vol] 157 10*3/uL Normal 150-400 [facility] Comment on above: Order Comment: Speci men Type: BLOOD SPECIMENOrdering Facility: [facility] Address: [address] [place] [id number] Performed By: #### 5 8410-2 ####[facility] [id number] [place] [address] [place] RBC (Bld) [#/Vol] 4.63 10*6/uL Normal 4.20-6.00 [facility] Comment on above: Order Comment: Speci men Type: BLOOD SPECIMENOrdering Facility: [facility] Address: [address] Performed By: #### 5 8410-2 ####[facility] [id number] [place] [address] [place] WBC (Bld) [#/Vol] 12.67 10*3/uL High 3.70-11.00 [facility] Comment on above: Order Comment: Speci men Type: BLOOD SPECIMENOrdering Facility: [facility] Address: [address] [place] [address] Performed By: #### 5 8410-2 ####[facility] [id number] [place] [address] [place] [facility] Comprehensive metabolic 2000 panelon 07-20-2022 Albumin [Mass/Vol] 3.8 g/dL Low 3.9-4.9 [facility] Comment on above: Order Comment: Speci men Type: BLOOD SPECIMENOrdering Facility: [facility] Address: [address] Performed By: #### 2 4323-8, JUAN ####[facility] [id number] [address] [place] ALP [Catalytic activity/Vol] 36 U/L Low 38-113 [facility] Comment on above: Order Comment: Speci men Type: BLOOD SPECIMENOrdering Facility: [facility] Address: [address] Performed By: #### 2 4323-8, JUAN ####[facility] [id number] [place] [address] [place] ALT [Catalytic activity/Vol] 30 U/L Normal 10-54 [facility] Comment on above: Order Comment: Speci men Type: BLOOD SPECIMENOrdering Facility: [facility] Address: [address] Performed By: #### 2 4323-8, JUAN ####[facility] [id number] [place] [address] [place] Anion gap [Moles/Vol] 13 mmol/L Normal 9-18 [facility] Comment on above: Order Comment: Speci men Type: BLOOD SPECIMENOrdering Facility: [facility] Address: [address] [place] [phone] Performed By: #### 2 4323-8, JUAN ####[facility] [id number] [place] [address] [place] AST [Catalytic activity/Vol] 38 U/L Normal 14-40 [facility] Comment on above: Order Comment: Speci men Type: BLOOD SPECIMENOrdering Facility: [facility] Address: [address] [place] [phone] Performed By: #### 2 4323-8, JUAN ####[facility] [id number] [place] [address] [place] Bilirubin [Mass/Vol] 1.4 mg/dL High 0.2-1.3 [facility] Comment on above: Order Comment: Speci men Type: BLOOD SPECIMENOrdering Facility: [facility] Address: [address] [place] [id number] Performed By: #### 2 4323-8, JUAN ####[facility] [id number] [place] [address] [place] Calcium [Mass/Vol] 8.6 mg/dL Normal 8.5-10.2 [facility] Comment on above: Order Comment: Speci men Type: BLOOD SPECIMENOrdering Facility: [facility] Address: [address] Performed By: #### 2 4323-8, JUAN ####[facility] [id number] [address] [place] Chloride [Moles/Vol] 103 mmol/L Normal 97-105 [facility] Comment on above: Order Comment: Speci men Type: BLOOD SPECIMENOrdering Facility: [facility] Address: [address] [place] [address] Performed By: #### 2 4323-8, JUAN ####[facility] [id number] [place] [address] [place] CO2 [Moles/Vol] 21 mmol/L Low 22-30 [facility] Comment on above: Order Comment: Speci men Type: BLOOD SPECIMENOrdering Facility: [facility] Address: [address] [place] [address] Performed By: #### 2 4323-8, JUAN ####[facility] [id number] [address] OF [facility] Creatinine [Mass/Vol] 0.87 mg/dL Normal 0.73-1.22 [facility] Comment on above: Order Comment: Speci men Type: BLOOD SPECIMENOrdering Facility: [facility] Address: [address] [place] [address] Performed By: #### 2 4323-8, JUAN ####[facility] [id number] [address] OF [facility] ESTIMATED GLOMERULAR FILTRATION RATE 107 mL/min/1.73m??? Normal >=60 [facility] Comment on above: Order Comment: Speci men Type: BLOOD SPECIMENOrdering Facility: [facility] Address: [address] [place] [address] Result Comment: Lucina mated Glomerular Filtration Rate (eGFR) is calculated using the 2020 CKD-EPI creatinine equation. This equation utilizes serum creatinine, sex, and age as parameters. The creatinine assay has traceable calibration to isotope dilution-mass spectrometry. Refer to KDIGO guidelines for clinical interpretation. In patients with unstable renal function, e.g. those with acute kidney injury, the eGFR may not accurately reflect actual GFR. Performed By: #### 2 4323-8, JUAN ####[facility] [id number] [place] [address] [place] Glucose [Mass/Vol] 150 mg/dL High 74-99 [facility] Comment on above: Order Comment: Speci men Type: BLOOD SPECIMENOrdering Facility: [facility] Address: [address] [place] [address] Result Comment: The [place] [employer] (ADA) provides guidance for cutoff values for fasting glucose and random glucose. The ADA defines fasting as no caloric intake for at least 8 hours. Fasting plasma glucose results between 100 to 125 mg/dL indicate increased risk for diabetes (prediabetes).Fasting plasma glucose results greater than or equal to 126 mg/dL meet the criteria for diagnosis of diabetes. In the absence of unequivocal hyperglycemia, results should be confirmed by repeat testing. In a patient with classic symptoms of hyperglycemia or hyperglycemic crisis, random plasma glucose results greater than or equal to 200 mg/dL meet the criteria for diagnosis of diabetes.Reference: Standards of Medical Care in Diabetes 2016, [place] [employer]. Diabetes Care. 2016.39(Suppl 1). Performed By: #### 2 4323-8, JUAN ####[facility] [id number] [place] [address] [place] Potassium [Moles/Vol] 4.7 mmol/L Normal 3.7-5.1 [facility] Comment on above: Order Comment: Speci men Type: BLOOD SPECIMENOrdering Facility: [facility] Address: [address] [address] Performed By: #### 2 4323-8, JUAN ####[facility] [id number] [place] [address] [place] Protein [Mass/Vol] 5.9 g/dL Low 6.3-8.0 [facility] Comment on above: Order Comment: Speci men Type: BLOOD SPECIMENOrdering Facility: [facility] Address: [address] [place] [address] Performed By: #### 2 4323-8, JUAN ####[facility] [id number] [place] [address] [place] Sodium [Moles/Vol] 137 mmol/L Normal 136-144 [facility] Comment on above: Order Comment: Noah schmidt Type: BLOOD SPECIMENOrdering Facility: [facility] Address: [address] [place] [address] Performed By: #### 2 4323-8, JUAN ####[facility] [id number] [address] [place] Urea nitrogen [Mass/Vol] 14 mg/dL Normal 9-24 [facility] Comment on above: Order Comment: Noah schmidt Type: BLOOD SPECIMENOrdering Facility: [facility] Address: [address] [place] [address] Performed By: #### 2 4323-8, JUAN ####[facility] [id number] [address] [place] PT panel Coag (PPP)on 2021 INR Coag (PPP) [Relative time] 1.1 {INR} Normal 0.9-1.3 [facility] Comment on above: Order Comment: Noah schmidt Type: BLOOD SPECIMENOrdering Facility: [facility] Address: [address] [place] [address] Result Comment: Zofia min K Antagonist (VKA) Therapeutic Range: INR 2 to 3 (Target INR of 2.5)Note: For patients treated with VKA drugs, such as warfarin, the [place] [employer] 2012 Guideline recommends a therapeutic INR range of 2 to 3 (target INR of 2.5). This recommendation includes high-risk patients with antiphospholipid syndrome with previous arterial or venous thromboembolism, current-generation mechanical or bioprosthetic aortic heart valve replacement.Note: Patients with mechanical aortic valve replacement and additional risk factors for thromboembolic events (atrial fibrillation, previous thromboembolism, LV dysfunction, hypercoagulable conditions) or an older generation mechanical AVR (i.e., ball in-Cage) or any mechanical MVR should have a INR therapeutic range of 2.5 to 3.5 (target INR of 3).Suzanne GH, et al. Chest 2012, 141:7S-47SNishimura RA, et al. [facility] 2017, 70: 252-289 Performed By: #### 3 4528-0 ####[facility] [id number] [place] [address] [place] PT Coag (PPP) [Time] 10.9 s Normal 9.7-13.0 [facility] Comment on above: Order Comment: Speci men Type: BLOOD SPECIMENOrdering Facility: [facility] Address: [address] [place] [address] Performed By: #### 3 4528-0 ####[facility] [id number] [address] [place] THERAPY NTon 07-20-2022 THERAPY NT Normal [facility] THERAPY NT Normal [facility] TROPONIN Ton 07-20-2022 Troponin T.cardiac [Mass/Vol] 0.169 ug/L High 0.000-0.029 [facility] Comment on above: Order Comment: Speci men Type: BLOOD SPECIMENOrdering Facility: [facility] Address: [address] [place] [address] Performed By: #### 2 4323-8, JUAN ####[facility] [id number] [address] [place] XR CHEST 1V FRONTAL PORTon 1 09-20-2021 XR CHEST 1V FRONTAL PORT Normal [facility] ANES POSTPROC EVALon 022 ANES POSTPROC EVAL Normal [facility] ANES PRE-OPon 07-19-2022 ANES PRE-OP Normal [facility] ARTERIAL BLOOD GASESon 07-19 Base deficit (BldA) [Moles/Vol] -1 mmol/L Normal -2-0 [facility] Comment on above: Order Comment: Speci men Type: ARTERIAL BLOOD SPECIMENOrdering Facility: [facility] Address: [address] [place] [address] Performed By: #### A LLBG ####[facility] [id number] [place] [address] [place] Calcium.ionized (Bld) [Mass/Vol] 1.19 mmol/L Normal 1.08-1.30 [facility] Comment on above: Order Comment: Speci men Type: ARTERIAL BLOOD SPECIMENOrdering Facility: [facility] Address: [address] [place] [address] Performed By: #### A LLBG ####[facility] [id number] [place] [address] [place] Calcium.ionized adjusted to pH 7.4 (BldA) [Moles/Vol] 1.19 mmol/L Normal 1.08-1.30 [facility] Comment on above: Order Comment: Speci men Type: ARTERIAL BLOOD SPECIMENOrdering Facility: [facility] Address: [address] [place] [address] Performed By: #### A LLBG ####[facility] [id number] [place] [address] [place] Carboxyhemoglobin (BldA) [Mass fraction] 1.0 % Normal 0.0-2.0 [facility] Comment on above: Order Comment: Speci men Type: ARTERIAL BLOOD SPECIMENOrdering Facility: [facility] Address: [address] [place] [id number] Result Comment: Carb oxyhemoglobin Reference Range for Smokers: 2.0-8.0% Performed By: #### A LLBG ####[facility] [id number] [place] [address] [place] CO2 (Bld) [Partial pressure] 39 mm Hg Normal 36-46 [facility] Comment on above: Order Comment: Speci men Type: ARTERIAL BLOOD SPECIMENOrdering Facility: [facility] Address: [address] [place] [address] Performed By: #### A LLBG ####[facility] [id number] [place] [address] [place] CO2 [Moles/Vol] 24 mmol/L Normal 22-28 [facility] Comment on above: Order Comment: Speci men Type: ARTERIAL BLOOD SPECIMENOrdering Facility: [facility] Address: [address] [place] [id number] Performed By: #### A LLBG ####[facility] [id number] [place] [address] [place] Glucose [Mass/Vol] 151 mg/dL High 60-105 [facility] Comment on above: Order Comment: Speci men Type: ARTERIAL BLOOD SPECIMENOrdering Facility: [facility] Address: [address] [place] [id number] Performed By: #### A LLBG ####[facility] [id number] [place] [address] [place] Hematocrit (Bld) [Volume fraction] 41.4 % Normal 39.0-51.0 [facility] Comment on above: Order Comment: Speci men Type: ARTERIAL BLOOD SPECIMENOrdering Facility: [facility] Address: [address] [place] [id number] Performed By: #### A LLBG ####[facility] [id number] [place] [address] [place] Hemoglobin (Bld) [Mass/Vol] 13.5 g/dL Normal 13.0-17.0 [facility] Comment on above: Order Comment: Speci men Type: ARTERIAL BLOOD SPECIMENOrdering Facility: [facility] Address: [address] [place] [id number] Performed By: #### A LLBG ####[facility] [id number] [place] [address] [place] Lactate [Moles/Vol] 2.6 mmol/L High 0.5-2.2 [facility] Comment on above: Order Comment: Speci men Type: ARTERIAL BLOOD SPECIMENOrdering Facility: [facility] Address: [address] Performed By: #### A LLBG ####[facility] [id number] [place] [address] [place] LITERS 6 Liters/min Normal [facility] Comment on above: Order Comment: Speci men Type: ARTERIAL BLOOD SPECIMENOrdering Facility: [facility] Address: [address] Performed By: #### A LLBG ####[facility] [id number] [place] [address] [place] Methemoglobin (Bld) [Mass fraction] 1.0 % Normal 0.0-1.5 [facility] Comment on above: Order Comment: Speci men Type: ARTERIAL BLOOD SPECIMENOrdering Facility: [facility] Address: [address] Performed By: #### A LLBG ####[facility] [id number] [place] [address] [place] Oxygen (Bld) [Partial pressure] 97 mm Hg High 85-95 [facility] Comment on above: Order Comment: Speci men Type: ARTERIAL BLOOD SPECIMENOrdering Facility: [facility] Address: [address] Performed By: #### A LLBG ####[facility] [id number] [place] [address] [place] Oxyhemoglobin (BldA) [Mass fraction] 96 % Normal 95-98 [facility] Comment on above: Order Comment: Speci men Type: ARTERIAL BLOOD SPECIMENOrdering Facility: [facility] Address: [address] Performed By: #### A LLBG ####[facility] [id number] [place] [address] [place] pH (Bld) 7.39 [pH] Normal 7.35-7.45 [facility] Comment on above: Order Comment: Speci men Type: ARTERIAL BLOOD SPECIMENOrdering Facility: [facility] Address: [address] [place] [address] Performed By: #### A LLBG ####[facility] [id number] [place] [address] [place] Potassium [Moles/Vol] 4.5 mmol/L Normal 3.5-5.0 [facility] Comment on above: Order Comment: Speci men Type: ARTERIAL BLOOD SPECIMENOrdering Facility: [facility] Address: [address] [place] [phone] Performed By: #### A LLBG ####[facility] [id number] [place] [address] [place] Sodium [Moles/Vol] 137 mmol/L Normal 136-144 [facility] Comment on above: Order Comment: Speci men Type: ARTERIAL BLOOD SPECIMENOrdering Facility: [facility] Address: [address] [place] [id number] Performed By: #### A LLBG ####[facility] [id number] [place] [address] [place] Base deficit (BldA) [Moles/Vol] -3 mmol/L Low -2-0 [facility] Comment on above: Order Comment: Speci men Type: ARTERIAL BLOOD SPECIMENOrdering Facility: [facility] Address: [address] [place] [address] Performed By: #### A LLBG ####[facility] [id number] [place] [address] [place] Body temperature 99.5 [degF] Normal [facility] Comment on above: Order Comment: Speci men Type: ARTERIAL BLOOD SPECIMENOrdering Facility: [facility] Address: [address] [place] [address] Performed By: #### A LLBG ####[facility] [id number] [place] [address] [place] Calcium.ionized (Bld) [Mass/Vol] 1.19 mmol/L Normal 1.08-1.30 [facility] Comment on above: Order Comment: Speci men Type: ARTERIAL BLOOD SPECIMENOrdering Facility: [facility] Address: [address] [place] [address] Performed By: #### A LLBG ####[facility] [id number] [place] [address] [place] Calcium.ionized adjusted to pH 7.4 (BldA) [Moles/Vol] 1.18 mmol/L Normal 1.08-1.30 [facility] Comment on above: Order Comment: Speci men Type: ARTERIAL BLOOD SPECIMENOrdering Facility: [facility] Address: [address] [place] [address] Performed By: #### A LLBG ####[facility] [id number] [place] [address] [place] Carboxyhemoglobin (BldA) [Mass fraction] 0.6 % Normal 0.0-2.0 [facility] Comment on above: Order Comment: Speci men Type: ARTERIAL BLOOD SPECIMENOrdering Facility: [facility] Address: [address] [place] [address] Result Comment: Carb oxyhemoglobin Reference Range for Smokers: 2.0-8.0% Performed By: #### A LLBG ####[facility] [id number] [place] [address] [place] CO2 (Bld) [Partial pressure] 39 mm Hg Normal 36-46 [facility] Comment on above: Order Comment: Speci men Type: ARTERIAL BLOOD SPECIMENOrdering Facility: [facility] Address: [address] Performed By: #### A LLBG ####[facility] [id number] [place] [address] [place] CO2 [Moles/Vol] 23 mmol/L Normal 22-28 [facility] Comment on above: Order Comment: Speci men Type: ARTERIAL BLOOD SPECIMENOrdering Facility: [facility] Address: [address] Performed By: #### A LLBG ####[facility] [id number] [place] [address] [place] CO2 adjusted to patient's actual temperature (Bld) [Partial pressure] 40 mmHg Normal 36-46 [facility] Comment on above: Order Comment: Speci men Type: ARTERIAL BLOOD SPECIMENOrdering Facility: [facility] Address: [address] Performed By: #### A LLBG ####[facility] [id number] [place] [address] [place] Glucose [Mass/Vol] 161 mg/dL High 60-105 [facility] Comment on above: Order Comment: Speci men Type: ARTERIAL BLOOD SPECIMENOrdering Facility: [facility] Address: [address] Performed By: #### A LLBG ####[facility] [id number] [place] [address] [place] HCO3 (Bld) [Moles/Vol] 22 mmol/L Normal 22-26 [facility] Comment on above: Order Comment: Speci men Type: ARTERIAL BLOOD SPECIMENOrdering Facility: [facility] Address: [address] Performed By: #### A LLBG ####[facility] [id number] [place] [address] [place] Hematocrit (Bld) [Volume fraction] 44.6 % Normal 39.0-51.0 [facility] Comment on above: Order Comment: Speci men Type: ARTERIAL BLOOD SPECIMENOrdering Facility: [facility] Address: [address] [place] [address] Performed By: #### A LLBG ####[facility] [id number] [place] [address] [place] Hemoglobin (Bld) [Mass/Vol] 14.5 g/dL Normal 13.0-17.0 [facility] Comment on above: Order Comment: Speci men Type: ARTERIAL BLOOD SPECIMENOrdering Facility: [facility] Address: [address] [place] [address] Performed By: #### A LLBG ####[facility] [id number] [address] [place] Lactate [Moles/Vol] 2.4 mmol/L High 0.5-2.2 [facility] Comment on above: Order Comment: Speci men Type: ARTERIAL BLOOD SPECIMENOrdering Facility: [facility] Address: [address] [place] [address] Performed By: #### A LLBG ####[facility] [id number] [place] [address] [place] Methemoglobin (Bld) [Mass fraction] 1.3 % Normal 0.0-1.5 [facility] Comment on above: Order Comment: Speci men Type: ARTERIAL BLOOD SPECIMENOrdering Facility: [facility] Address: [address] [place] [id number] Performed By: #### A LLBG ####[facility] [id number] [place] [address] [place] O2 THERAPY NC = Nasal Cannula Normal [facility] Comment on above: Order Comment: Speci men Type: ARTERIAL BLOOD SPECIMENOrdering Facility: [facility] Address: [address] Performed By: #### A LLBG ####[facility] [id number] [place] [address] [place] Oxygen (Bld) [Partial pressure] 82 mm Hg Low 85-95 [facility] Comment on above: Order Comment: Speci men Type: ARTERIAL BLOOD SPECIMENOrdering Facility: [facility] Address: [address] Performed By: #### A LLBG ####[facility] [id number] [place] [address] [place] Oxygen adjusted to patient's actual temperature (Bld) [Partial pressure] 85 mmHg Normal 85-95 [facility] Comment on above: Order Comment: Speci men Type: ARTERIAL BLOOD SPECIMENOrdering Facility: [facility] Address: [address] Performed By: #### A LLBG ####[facility] [id number] [place] [address] [place] Oxyhemoglobin (BldA) [Mass fraction] 94 % Low 95-98 [facility] Comment on above: Order Comment: Speci men Type: ARTERIAL BLOOD SPECIMENOrdering Facility: [facility] Address: [address] Performed By: #### A LLBG ####[facility] [id number] [place] [address] [place] pH (Bld) 7.37 [pH] Normal 7.35-7.45 [facility] Comment on above: Order Comment: Speci men Type: ARTERIAL BLOOD SPECIMENOrdering Facility: [facility] Address: [address] Performed By: #### A LLBG ####[facility] [id number] [place] [address] [place] pH adjusted to patient's actual temperature (Bld) 7.36 Normal 7.35-7.45 [facility] Comment on above: Order Comment: Speci men Type: ARTERIAL BLOOD SPECIMENOrdering Facility: [facility] Address: [address] [place] [address] Performed By: #### A LLBG ####[facility] [id number] [place] [address] [place] Potassium [Moles/Vol] 4.6 mmol/L Normal 3.5-5.0 [facility] Comment on above: Order Comment: Speci men Type: ARTERIAL BLOOD SPECIMENOrdering Facility: [facility] Address: [address] [place] [address] Performed By: #### A LLBG ####[facility] [id number] [place] [address] [place] Sodium [Moles/Vol] 137 mmol/L Normal 136-144 [facility] Comment on above: Order Comment: Speci men Type: ARTERIAL BLOOD SPECIMENOrdering Facility: [facility] Address: [address] [place] [address] Performed By: #### A LLBG ####[facility] [id number] [place] [address] [place] Base deficit (BldA) [Moles/Vol] -2 mmol/L Normal -2-0 [facility] Comment on above: Order Comment: Speci men Type: ARTERIAL BLOOD SPECIMENOrdering Facility: [facility] Address: [address] [place] [id number] Performed By: #### A LLBG ####[facility] [id number] [place] [address] [place] Body temperature 99.5 [degF] Normal [facility] Comment on above: Order Comment: Speci men Type: ARTERIAL BLOOD SPECIMENOrdering Facility: [facility] Address: [address] Performed By: #### A LLBG ####[facility] [id number] [address] Order Comment: Speci men Type: VENOUS BLOOD SPECIMENOrdering Facility: [facility] Address: [address] Performed By: #### 2 4344-4 ####[facility] [id number] [address] [place] Calcium.ionized (Bld) [Mass/Vol] 1.22 mmol/L Normal 1.08-1.30 [facility] Comment on above: Order Comment: Speci men Type: ARTERIAL BLOOD SPECIMENOrdering Facility: [facility] Address: [address] Performed By: #### A LLBG ####[facility] [id number] [address] STATES [facility] Calcium.ionized adjusted to pH 7.4 (BldA) [Moles/Vol] 1.19 mmol/L Normal 1.08-1.30 [facility] Comment on above: Order Comment: Speci men Type: ARTERIAL BLOOD SPECIMENOrdering Facility: [facility] Address: [address] [place] [address] Performed By: #### A LLBG ####[facility] [id number] [address] [place] Order Comment: Speci men Type: VENOUS BLOOD SPECIMENOrdering Facility: [facility] Address: [address] [place] [address] Performed By: #### 2 4344-4 ####[facility] [id number] [address] [place] Carboxyhemoglobin (BldA) [Mass fraction] 1.6 % Normal 0.0-2.0 [facility] Comment on above: Order Comment: Speci men Type: ARTERIAL BLOOD SPECIMENOrdering Facility: [facility] Address: [address] [place] [id number] Result Comment: Carb oxyhemoglobin Reference Range for Smokers: 2.0-8.0% Performed By: #### A LLBG ####[facility] [id number] [place] [address] [place] CO2 (Bld) [Partial pressure] 41 mm Hg Normal 36-46 [facility] Comment on above: Order Comment: Speci men Type: ARTERIAL BLOOD SPECIMENOrdering Facility: [facility] Address: [address] [place] [address] Performed By: #### A LLBG ####[facility] [id number] [place] [address] [place] CO2 [Moles/Vol] 24 mmol/L Normal 22-28 [facility] Comment on above: Order Comment: Speci men Type: ARTERIAL BLOOD SPECIMENOrdering Facility: [facility] Address: [address] [place] [id number] Performed By: #### A LLBG ####[facility] [id number] [place] [address] [place] CO2 adjusted to patient's actual temperature (Bld) [Partial pressure] 42 mmHg Normal 36-46 [facility] Comment on above: Order Comment: Speci men Type: ARTERIAL BLOOD SPECIMENOrdering Facility: [facility] Address: [address] [place] [address] Performed By: #### A LLBG ####[facility] [id number] [place] [address] [place] Glucose [Mass/Vol] 153 mg/dL High 60-105 [facility] Comment on above: Order Comment: Speci men Type: ARTERIAL BLOOD SPECIMENOrdering Facility: [facility] Address: [address] [place], [place] Performed By: #### A LLBG ####[facility] [id number] [place] [address] [place] HCO3 (Bld) [Moles/Vol] 23 mmol/L Low 24-28 [facility] Comment on above: Order Comment: Speci men Type: ARTERIAL BLOOD SPECIMENOrdering Facility: [facility] Address: [address] [place] [id number] Performed By: #### A LLBG ####[facility] [id number] [address] STATES OF [facility] Order Comment: Speci men Type: VENOUS BLOOD SPECIMENOrdering Facility: [facility] Address: [address] [place] [id number] Performed By: #### 2 4344-4 ####[facility] [id number] [address] STATES OF [facility] Hematocrit (Bld) [Volume fraction] 46.1 % Normal 39.0-51.0 [facility] Comment on above: Order Comment: Speci men Type: ARTERIAL BLOOD SPECIMENOrdering Facility: [facility] Address: [address] [place] [id number] Performed By: #### A LLBG ####[facility] [id number] [address] [place] Hemoglobin (Bld) [Mass/Vol] 15.0 g/dL Normal 13.0-17.0 [facility] Comment on above: Order Comment: Speci men Type: ARTERIAL BLOOD SPECIMENOrdering Facility: [facility] Address: [address] [place] [address] Performed By: #### A LLBG ####[facility] [id number] [place] [address] [place] Lactate [Moles/Vol] 2.3 mmol/L High 0.5-2.2 [facility] Comment on above: Order Comment: Speci men Type: ARTERIAL BLOOD SPECIMENOrdering Facility: [facility] Address: [address] Performed By: #### A LLBG ####[facility] [id number] [address] [place] Methemoglobin (Bld) [Mass fraction] 1.3 % Normal 0.0-1.5 [facility] Comment on above: Order Comment: Speci men Type: ARTERIAL BLOOD SPECIMENOrdering Facility: [facility] Address: [address] Performed By: #### A LLBG ####[facility] [id number] [address] [place] O2 THERAPY Positive Normal [facility] Comment on above: Order Comment: Speci men Type: ARTERIAL BLOOD SPECIMENOrdering Facility: [facility] Address: [address] Performed By: #### A LLBG ####[facility] [id number] [address] [place] Order Comment: Speci men Type: VENOUS BLOOD SPECIMENOrdering Facility: [facility] Address: [address] [place] [address] Performed By: #### 2 4344-4 ####[facility] [id number] [address] [place] Oxygen (Bld) [Partial pressure] 97 mm Hg High 85-95 [facility] Comment on above: Order Comment: Speci men Type: ARTERIAL BLOOD SPECIMENOrdering Facility: [facility] Address: [address] Performed By: #### A LLBG ####[facility] [id number] [address] OF [facility] Oxygen adjusted to patient's actual temperature (Bld) [Partial pressure] 100 mmHg High 85-95 [facility] Comment on above: Order Comment: Speci men Type: ARTERIAL BLOOD SPECIMENOrdering Facility: [facility] Address: [address] [place] [address] Performed By: #### A LLBG ####[facility] [id number] [place] [address] [place] Oxyhemoglobin (BldA) [Mass fraction] 95 % Normal 95-98 [facility] Comment on above: Order Comment: Speci men Type: ARTERIAL BLOOD SPECIMENOrdering Facility: [facility] Address: [address] [place] [address] Performed By: #### A LLBG ####[facility] [id number] [place] [address] [place] pH (Bld) 7.36 [pH] Normal 7.35-7.45 [facility] Comment on above: Order Comment: Speci men Type: ARTERIAL BLOOD SPECIMENOrdering Facility: [facility] Address: [address] [place] [id number] Performed By: #### A LLBG ####[facility] [id number] [address] [place] pH adjusted to patient's actual temperature (Bld) 7.35 Normal 7.35-7.45 [facility] Comment on above: Order Comment: Speci men Type: ARTERIAL BLOOD SPECIMENOrdering Facility: [facility] Address: [address] [place] [id number] Performed By: #### A LLBG ####[facility] [id number] [place] [address] [place] Potassium [Moles/Vol] 4.4 mmol/L Normal 3.5-5.0 [facility] Comment on above: Order Comment: Speci men Type: ARTERIAL BLOOD SPECIMENOrdering Facility: [facility] Address: [address] Performed By: #### A LLBG ####[facility] [id number] [place] [address] [place] Sodium [Moles/Vol] 138 mmol/L Normal 136-144 [facility] Comment on above: Order Comment: Speci men Type: ARTERIAL BLOOD SPECIMENOrdering Facility: [facility] Address: [address] Performed By: #### A LLBG ####[facility] [id number] [place] [address] [place] Base deficit (BldA) [Moles/Vol] -2 mmol/L Normal -2-0 [facility] Comment on above: Order Comment: Speci men Type: ARTERIAL BLOOD SPECIMENOrdering Facility: [facility] Address: [address] [place] [address] Performed By: #### A LLBG ####[facility] [id number] [place] [address] [place] Body temperature 98.78 [degF] Normal [facility] Comment on above: Order Comment: Speci men Type: ARTERIAL BLOOD SPECIMENOrdering Facility: [facility] Address: [address] [place] [id number] Performed By: #### A LLBG ####[facility] [id number] [place] [address] [place] Order Comment: Speci men Type: VENOUS BLOOD SPECIMENOrdering Facility: [facility] Address: [address] [place] [address] Performed By: #### 2 4344-4 ####[facility] [id number] [place] [address] [place] Calcium.ionized (Bld) [Mass/Vol] 1.20 mmol/L Normal 1.08-1.30 [facility] Comment on above: Order Comment: Speci men Type: ARTERIAL BLOOD SPECIMENOrdering Facility: [facility] Address: [address] [place] [address] Performed By: #### A LLBG ####[facility] [id number] [address] [place] Order Comment: Speci men Type: VENOUS BLOOD SPECIMENOrdering Facility: [facility] Address: [address] [place] [address] Performed By: #### 2 4344-4 ####[facility] [id number] [address] [place] Calcium.ionized adjusted to pH 7.4 (BldA) [Moles/Vol] 1.18 mmol/L Normal 1.08-1.30 [facility] Comment on above: Order Comment: Speci men Type: ARTERIAL BLOOD SPECIMENOrdering Facility: [facility] Address: [address] [place] [address] Performed By: #### A LLBG ####[facility] [id number] [address] [place] Carboxyhemoglobin (BldA) [Mass fraction] 1.8 % Normal 0.0-2.0 [facility] Comment on above: Order Comment: Speci men Type: ARTERIAL BLOOD SPECIMENOrdering Facility: [facility] Address: [address] [place] [id number] Result Comment: Carb oxyhemoglobin Reference Range for Smokers: 2.0-8.0% Performed By: #### A LLBG ####[facility] [id number] [address] [place] CO2 (Bld) [Partial pressure] 41 mm Hg Normal 36-46 [facility] Comment on above: Order Comment: Speci men Type: ARTERIAL BLOOD SPECIMENOrdering Facility: [facility] Address: [address] [place] [id number] Performed By: #### A LLBG ####[facility] [id number] [place] [address] [place] CO2 [Moles/Vol] 24 mmol/L Normal 22-28 [facility] Comment on above: Order Comment: Speci men Type: ARTERIAL BLOOD SPECIMENOrdering Facility: [facility] Address: [address] [place] [id number] Performed By: #### A LLBG ####[facility] [id number] [place] [address] [place] CO2 adjusted to patient's actual temperature (Bld) [Partial pressure] 41 mmHg Normal 36-46 [facility] Comment on above: Order Comment: Speci men Type: ARTERIAL BLOOD SPECIMENOrdering Facility: [facility] Address: [address] [place] [id number] Performed By: #### A LLBG ####[facility] [id number] [place] [address] [place] Glucose [Mass/Vol] 112 mg/dL High 60-105 [facility] Comment on above: Order Comment: Speci men Type: ARTERIAL BLOOD SPECIMENOrdering Facility: [facility] Address: [address] [place] [id number] Performed By: #### A LLBG ####[facility] [id number] [place] [address] [place] HCO3 (Bld) [Moles/Vol] 23 mmol/L Normal 22-26 [facility] Comment on above: Order Comment: Speci men Type: ARTERIAL BLOOD SPECIMENOrdering Facility: [facility] Address: [address] Performed By: #### A LLBG ####[facility] [id number] [place] [address] [place] Hematocrit (Bld) [Volume fraction] 47.2 % Normal 39.0-51.0 [facility] Comment on above: Order Comment: Speci men Type: ARTERIAL BLOOD SPECIMENOrdering Facility: [facility] Address: [address] Performed By: #### A LLBG ####[facility] [id number] [address] [place] Hemoglobin (Bld) [Mass/Vol] 15.4 g/dL Normal 13.0-17.0 [facility] Comment on above: Order Comment: Speci men Type: ARTERIAL BLOOD SPECIMENOrdering Facility: [facility] Address: [address] [place] [id number] Performed By: #### A LLBG ####[facility] [id number] [address] [place] Lactate [Moles/Vol] 2.3 mmol/L High 0.5-2.2 [facility] Comment on above: Order Comment: Speci men Type: ARTERIAL BLOOD SPECIMENOrdering Facility: [facility] Address: [address] [place] [id number] Performed By: #### A LLBG ####[facility] [id number] [address] [place] Methemoglobin (Bld) [Mass fraction] 1.2 % Normal 0.0-1.5 [facility] Comment on above: Order Comment: Speci men Type: ARTERIAL BLOOD SPECIMENOrdering Facility: [facility] Address: [address] Performed By: #### A LLBG ####[facility] [id number] [place] [address] [place] O2 THERAPY Ventilator Normal [facility] Comment on above: Order Comment: Speci men Type: ARTERIAL BLOOD SPECIMENOrdering Facility: [facility] Address: [address] Performed By: #### A LLBG ####[facility] [id number] [place] [address] [place] Order Comment: Speci men Type: VENOUS BLOOD SPECIMENOrdering Facility: [facility] Address: [address] [place] [id number] Performed By: #### 2 4344-4 ####[facility] [id number] [place] [address] [place] Oxygen (Bld) [Partial pressure] 110 mm Hg High 85-95 [facility] Comment on above: Order Comment: Speci men Type: ARTERIAL BLOOD SPECIMENOrdering Facility: [facility] Address: [address] [place] [id number] Performed By: #### A LLBG ####[facility] [id number] [address] [place] Oxygen adjusted to patient's actual temperature (Bld) [Partial pressure] 111 mmHg High 85-95 [facility] Comment on above: Order Comment: Speci men Type: ARTERIAL BLOOD SPECIMENOrdering Facility: [facility] Address: [address] [place] [id number] Performed By: #### A LLBG ####[facility] [id number] [place] [address] [place] Oxyhemoglobin (BldA) [Mass fraction] 95 % Normal 95-98 [facility] Comment on above: Order Comment: Speci men Type: ARTERIAL BLOOD SPECIMENOrdering Facility: [facility] Address: [address] [place] [address] Performed By: #### A LLBG ####[facility] [id number] [place] [address] [place] pH (Bld) 7.37 [pH] Normal 7.35-7.45 [facility] Comment on above: Order Comment: Speci men Type: ARTERIAL BLOOD SPECIMENOrdering Facility: [facility] Address: [address] Performed By: #### A LLBG ####[facility] [id number] [place] [address] [place] pH adjusted to patient's actual temperature (Bld) 7.37 Normal 7.35-7.45 [facility] Comment on above: Order Comment: Speci men Type: ARTERIAL BLOOD SPECIMENOrdering Facility: [facility] Address: [address] Performed By: #### A LLBG ####[facility] [id number] [place] [address] [place] Potassium [Moles/Vol] 4.2 mmol/L Normal 3.5-5.0 [facility] Comment on above: Order Comment: Speci men Type: ARTERIAL BLOOD SPECIMENOrdering Facility: [facility] Address: [address] Performed By: #### A LLBG ####[facility] [id number] [place] [address] [place] Sodium [Moles/Vol] 139 mmol/L Normal 136-144 [facility] Comment on above: Order Comment: Speci men Type: ARTERIAL BLOOD SPECIMENOrdering Facility: [facility] Address: [address] [place] [address] Performed By: #### A LLBG ####[facility] [id number] [place] [address] [place] Base deficit (BldA) [Moles/Vol] -2 mmol/L Normal -2-0 [facility] Comment on above: Order Comment: Speci men Type: ARTERIAL BLOOD SPECIMENOrdering Facility: [facility] Address: [address] Performed By: #### A LLBG ####[facility] [id number] [address] [place] Body temperature 98.24 [degF] Normal [facility] Comment on above: Order Comment: Speci men Type: ARTERIAL BLOOD SPECIMENOrdering Facility: [facility] Address: [address] [place] [address] Performed By: #### A LLBG ####[facility] [id number] [address] [place] Calcium.ionized (Bld) [Mass/Vol] 1.25 mmol/L Normal 1.08-1.30 [facility] Comment on above: Order Comment: Speci men Type: ARTERIAL BLOOD SPECIMENOrdering Facility: [facility] Address: [address] [place] [address] Performed By: #### A LLBG ####[facility] [id number] [address] OF [facility] Calcium.ionized adjusted to pH 7.4 (BldA) [Moles/Vol] 1.24 mmol/L Normal 1.08-1.30 [facility] Comment on above: Order Comment: Speci men Type: ARTERIAL BLOOD SPECIMENOrdering Facility: [facility] Address: [address] [place] [address] Performed By: #### A LLBG ####[facility] [id number] [address] [place] Carboxyhemoglobin (BldA) [Mass fraction] 0.9 % Normal 0.0-2.0 [facility] Comment on above: Order Comment: Speci men Type: ARTERIAL BLOOD SPECIMENOrdering Facility: [facility] Address: [address] [place] [id number] Result Comment: Carb oxyhemoglobin Reference Range for Smokers: 2.0-8.0% Performed By: #### A LLBG ####[facility] [id number] [address] [id number] [address] [place] CO2 (Bld) [Partial pressure] 39 mm Hg Normal 36-46 [facility] Comment on above: Order Comment: Speci men Type: ARTERIAL BLOOD SPECIMENOrdering Facility: [facility] Address: [address] [place] [address] Performed By: #### A LLBG ####[facility] [id number] [place] [address] [place] CO2 [Moles/Vol] 24 mmol/L Normal 22-28 [facility] Comment on above: Order Comment: Speci men Type: ARTERIAL BLOOD SPECIMENOrdering Facility: [facility] Address: [address] [place] [id number] Performed By: #### A LLBG ####[facility] [id number] [place] [address] [place] CO2 adjusted to patient's actual temperature (Bld) [Partial pressure] 38 mmHg Normal 36-46 [facility] Comment on above: Order Comment: Speci men Type: ARTERIAL BLOOD SPECIMENOrdering Facility: [facility] Address: [address] [place] [id number] Performed By: #### A LLBG ####[facility] [id number] [place] [address] [place] Glucose [Mass/Vol] 117 mg/dL High 60-105 [facility] Comment on above: Order Comment: Speci men Type: ARTERIAL BLOOD SPECIMENOrdering Facility: [facility] Address: [address] Performed By: #### A LLBG ####[facility] [id number] [place] [address] [place] HCO3 (Bld) [Moles/Vol] 22 mmol/L Normal 22-26 [facility] Comment on above: Order Comment: Speci men Type: ARTERIAL BLOOD SPECIMENOrdering Facility: [facility] Address: [address] Performed By: #### A LLBG ####[facility] [id number] [address] [place] Hematocrit (Bld) [Volume fraction] 45.2 % Normal 39.0-51.0 [facility] Comment on above: Order Comment: Speci men Type: ARTERIAL BLOOD SPECIMENOrdering Facility: [facility] Address: [address] Performed By: #### A LLBG ####[facility] [id number] [address] [place] Hemoglobin (Bld) [Mass/Vol] 14.7 g/dL Normal 13.0-17.0 [facility] Comment on above: Order Comment: Speci men Type: ARTERIAL BLOOD SPECIMENOrdering Facility: [facility] Address: [address] Performed By: #### A LLBG ####[facility] [id number] [place] [address] [place] Lactate [Moles/Vol] 2.3 mmol/L High 0.5-2.2 [facility] Comment on above: Order Comment: Speci men Type: ARTERIAL BLOOD SPECIMENOrdering Facility: [facility] Address: [address] Performed By: #### A LLBG ####[facility] [id number] [place] [address] [place] Methemoglobin (Bld) [Mass fraction] 1.2 % Normal 0.0-1.5 [facility] Comment on above: Order Comment: Speci men Type: ARTERIAL BLOOD SPECIMENOrdering Facility: [facility] Address: [address] Performed By: #### A LLBG ####[facility] [id number] [place] [address] [place] O2 THERAPY Ventilator Normal [facility] Comment on above: Order Comment: Speci men Type: ARTERIAL BLOOD SPECIMENOrdering Facility: [facility] Address: [address] Performed By: #### A LLBG ####[facility] [id number] [address] [place] Oxygen (Bld) [Partial pressure] 102 mm Hg High 85-95 [facility] Comment on above: Order Comment: Speci men Type: ARTERIAL BLOOD SPECIMENOrdering Facility: [facility] Address: [address] Performed By: #### A LLBG ####[facility] [id number] [address] [place] Oxygen adjusted to patient's actual temperature (Bld) [Partial pressure] 101 mmHg High 85-95 [facility] Comment on above: Order Comment: Speci men Type: ARTERIAL BLOOD SPECIMENOrdering Facility: [facility] Address: [address] Performed By: #### A LLBG ####[facility] [id number] [address] [place] Oxyhemoglobin (BldA) [Mass fraction] 96 % Normal 95-98 [facility] Comment on above: Order Comment: Speci men Type: ARTERIAL BLOOD SPECIMENOrdering Facility: [facility] Address: [address] [place] [address] Performed By: #### A LLBG ####[facility] [id number] [place] [address] [place] pH (Bld) 7.38 [pH] Normal 7.35-7.45 [facility] Comment on above: Order Comment: Speci men Type: ARTERIAL BLOOD SPECIMENOrdering Facility: [facility] Address: [address] [place] [address] Performed By: #### A LLBG ####[facility] [id number] [place] [address] [place] pH adjusted to patient's actual temperature (Bld) 7.38 Normal 7.35-7.45 [facility] Comment on above: Order Comment: Speci men Type: ARTERIAL BLOOD SPECIMENOrdering Facility: [facility] Address: [address] [place] [address] Performed By: #### A LLBG ####[facility] [id number] [place] [address] [place] Potassium [Moles/Vol] 4.2 mmol/L Normal 3.5-5.0 [facility] Comment on above: Order Comment: Speci men Type: ARTERIAL BLOOD SPECIMENOrdering Facility: [facility] Address: [address] [place] [id number] Performed By: #### A LLBG ####[facility] [id number] [place] [address] [place] Sodium [Moles/Vol] 138 mmol/L Normal 136-144 [facility] Comment on above: Order Comment: Speci men Type: ARTERIAL BLOOD SPECIMENOrdering Facility: [facility] Address: [address] [place] Performed By: #### A LLBG ####[facility] [id number] [place] [address] [place] Base deficit (BldA) [Moles/Vol] -3 mmol/L Low -2-0 [facility] Comment on above: Order Comment: Speci men Type: ARTERIAL BLOOD SPECIMENOrdering Facility: [facility] Address: [address] [place] [address] Performed By: #### A LLBG ####[facility] [id number] [place] [address] [place] Body temperature 96.08 [degF] Normal [facility] Comment on above: Order Comment: Speci men Type: ARTERIAL BLOOD SPECIMENOrdering Facility: [facility] Address: [address] [place] [id number] Performed By: #### A LLBG ####[facility] [id number] [place] [address] [place] Calcium.ionized (Bld) [Mass/Vol] 1.28 mmol/L Normal 1.08-1.30 [facility] Comment on above: Order Comment: Speci men Type: ARTERIAL BLOOD SPECIMENOrdering Facility: [facility] Address: [address] [place] [id number] Performed By: #### A LLBG ####[facility] [id number] [place] [address] [place] Calcium.ionized adjusted to pH 7.4 (BldA) [Moles/Vol] 1.24 mmol/L Normal 1.08-1.30 [facility] Comment on above: Order Comment: Speci men Type: ARTERIAL BLOOD SPECIMENOrdering Facility: [facility] Address: [address] [place] [id number] Performed By: #### A LLBG ####[facility] [id number] [place] [address] [place] Carboxyhemoglobin (BldA) [Mass fraction] 0.7 % Normal 0.0-2.0 [facility] Comment on above: Order Comment: Speci men Type: ARTERIAL BLOOD SPECIMENOrdering Facility: [facility] Address: [address] [place] [address] Result Comment: Carb oxyhemoglobin Reference Range for Smokers: 2.0-8.0% Performed By: #### A LLBG ####[facility] [id number] [place] [address] [place] CO2 (Bld) [Partial pressure] 41 mm Hg Normal 36-46 [facility] Comment on above: Order Comment: Speci men Type: ARTERIAL BLOOD SPECIMENOrdering Facility: [facility] Address: [address] Performed By: #### A LLBG ####[facility] [id number] [place] [address] [place] CO2 [Moles/Vol] 23 mmol/L Normal 22-28 [facility] Comment on above: Order Comment: Speci men Type: ARTERIAL BLOOD SPECIMENOrdering Facility: [facility] Address: [address] Performed By: #### A LLBG ####[facility] [id number] [place] [address] [place] CO2 adjusted to patient's actual temperature (Bld) [Partial pressure] 39 mmHg Normal 36-46 [facility] Comment on above: Order Comment: Speci men Type: ARTERIAL BLOOD SPECIMENOrdering Facility: [facility] Address: [address] Performed By: #### A LLBG ####[facility] [id number] [place] [address] [place] Glucose [Mass/Vol] 141 mg/dL High 60-105 [facility] Comment on above: Order Comment: Speci men Type: ARTERIAL BLOOD SPECIMENOrdering Facility: [facility] Address: [address] [place] [address] Performed By: #### A LLBG ####[facility] [id number] [place] [address] [place] HCO3 (Bld) [Moles/Vol] 22 mmol/L Normal 22-26 [facility] Comment on above: Order Comment: Speci men Type: ARTERIAL BLOOD SPECIMENOrdering Facility: [facility] Address: [address] [place] [address] Performed By: #### A LLBG ####[facility] [id number] [place] [address] [place] Hematocrit (Bld) [Volume fraction] 43.4 % Normal 39.0-51.0 [facility] Comment on above: Order Comment: Speci men Type: ARTERIAL BLOOD SPECIMENOrdering Facility: [facility] Address: [address] [place] [address] Performed By: #### A LLBG ####[facility] [id number] [place] [address] [place] Hemoglobin (Bld) [Mass/Vol] 14.1 g/dL Normal 13.0-17.0 [facility] Comment on above: Order Comment: Speci men Type: ARTERIAL BLOOD SPECIMENOrdering Facility: [facility] Address: [address] [place] [address] Performed By: #### A LLBG ####[facility] [id number] [address] [place] Lactate [Moles/Vol] 3.3 mmol/L High 0.5-2.2 [facility] Comment on above: Order Comment: Speci men Type: ARTERIAL BLOOD SPECIMENOrdering Facility: [facility] Address: [address] [place] [id number] Performed By: #### A LLBG ####[facility] [id number] [address] [place] Methemoglobin (Bld) [Mass fraction] 0.8 % Normal 0.0-1.5 [facility] Comment on above: Order Comment: Speci men Type: ARTERIAL BLOOD SPECIMENOrdering Facility: [facility] Address: [address] [place] [id number] Performed By: #### A LLBG ####[facility] [id number] [place] [address] [place] O2 THERAPY Ventilator Normal [facility] Comment on above: Order Comment: Speci men Type: ARTERIAL BLOOD SPECIMENOrdering Facility: [facility] Address: [address] Performed By: #### A LLBG ####[facility] [id number] [place] [address] [place] Oxygen (Bld) [Partial pressure] 115 mm Hg High 85-95 [facility] Comment on above: Order Comment: Speci men Type: ARTERIAL BLOOD SPECIMENOrdering Facility: [facility] Address: [address] Performed By: #### A LLBG ####[facility] [id number] [place] [address] [place] Oxygen adjusted to patient's actual temperature (Bld) [Partial pressure] 107 mmHg High 85-95 [facility] Comment on above: Order Comment: Speci men Type: ARTERIAL BLOOD SPECIMENOrdering Facility: [facility] Address: [address] Performed By: #### A LLBG ####[facility] [id number] [place] [address] [place] Oxyhemoglobin (BldA) [Mass fraction] 97 % Normal 95-98 [facility] Comment on above: Order Comment: Speci men Type: ARTERIAL BLOOD SPECIMENOrdering Facility: [facility] Address: [address] Performed By: #### A LLBG ####[facility] [id number] [place] [address] [place] pH (Bld) 7.34 [pH] Low 7.35-7.45 [facility] Comment on above: Order Comment: Speci men Type: ARTERIAL BLOOD SPECIMENOrdering Facility: [facility] Address: [address] Performed By: #### A LLBG ####[facility] [id number] [place] [address] [place] pH adjusted to patient's actual temperature (Bld) 7.36 Normal 7.35-7.45 [facility] Comment on above: Order Comment: Speci men Type: ARTERIAL BLOOD SPECIMENOrdering Facility: [facility] Address: [address] [place] [address] Performed By: #### A LLBG ####[facility] [id number] [place] [address] [place] Potassium [Moles/Vol] 4.4 mmol/L Normal 3.5-5.0 [facility] Comment on above: Order Comment: Speci men Type: ARTERIAL BLOOD SPECIMENOrdering Facility: [facility] Address: [address] [place] [address] Performed By: #### A LLBG ####[facility] [id number] [place] [address] [place] Sodium [Moles/Vol] 137 mmol/L Normal 136-144 [facility] Comment on above: Order Comment: Speci men Type: ARTERIAL BLOOD SPECIMENOrdering Facility: [facility] Address: [address] [place] [id number] Performed By: #### A LLBG ####[facility] [id number] [place] [address] [place] Base deficit (BldA) [Moles/Vol] -4 mmol/L Low -2-0 [facility] Comment on above: Order Comment: Speci men Type: ARTERIAL BLOOD SPECIMENOrdering Facility: [facility] Address: [address] [place] [phone] Performed By: #### A LLBG ####[facility] [id number] [place] [address] [place] Calcium.ionized (Bld) [Mass/Vol] 1.24 mmol/L Normal 1.08-1.30 [facility] Comment on above: Order Comment: Speci men Type: ARTERIAL BLOOD SPECIMENOrdering Facility: [facility] Address: [address] [place] [address] Performed By: #### A LLBG ####[facility] [id number] [place] [address] [place] Calcium.ionized adjusted to pH 7.4 (BldA) [Moles/Vol] 1.20 mmol/L Normal 1.08-1.30 [facility] Comment on above: Order Comment: Speci men Type: ARTERIAL BLOOD SPECIMENOrdering Facility: [facility] Address: [address] [place] [address] Performed By: #### A LLBG ####[facility] [id number] [place] [address] [place] Carboxyhemoglobin (BldA) [Mass fraction] 0.8 % Normal 0.0-2.0 [facility] Comment on above: Order Comment: Speci men Type: ARTERIAL BLOOD SPECIMENOrdering Facility: [facility] Address: [address] [place] [address] Result Comment: Carb oxyhemoglobin Reference Range for Smokers: 2.0-8.0% Performed By: #### A LLBG ####[facility] [id number] [place] [address] [place] CO2 (Bld) [Partial pressure] 38 mm Hg Normal 36-46 [facility] Comment on above: Order Comment: Speci men Type: ARTERIAL BLOOD SPECIMENOrdering Facility: [facility] Address: [address] [place] [address] Performed By: #### A LLBG ####[facility] [id number] [place] [address] [place] CO2 [Moles/Vol] 22 mmol/L Normal 22-28 [facility] Comment on above: Order Comment: Speci men Type: ARTERIAL BLOOD SPECIMENOrdering Facility: [facility] Address: [address] [place] [address] Performed By: #### A LLBG ####[facility] [id number] [address] [place] CO2 adjusted to patient's actual temperature (Bld) [Partial pressure] 38 mmHg Normal 36-46 [facility] Comment on above: Order Comment: Speci men Type: ARTERIAL BLOOD SPECIMENOrdering Facility: [facility] Address: [address] Performed By: #### A LLBG ####[facility] [id number] [place] [address] [place] Glucose [Mass/Vol] 189 mg/dL High 60-105 [facility] Comment on above: Order Comment: Speci men Type: ARTERIAL BLOOD SPECIMENOrdering Facility: [facility] Address: [address] [place] [address] Performed By: #### A LLBG ####[facility] [id number] [place] [address] [place] HCO3 (Bld) [Moles/Vol] 20 mmol/L Low 22-26 [facility] Comment on above: Order Comment: Speci men Type: ARTERIAL BLOOD SPECIMENOrdering Facility: [facility] Address: [address] Performed By: #### A LLBG ####[facility] [id number] [place] [address] [place] Hematocrit (Bld) [Volume fraction] 43.4 % Normal 39.0-51.0 [facility] Comment on above: Order Comment: Speci men Type: ARTERIAL BLOOD SPECIMENOrdering Facility: [facility] Address: [address] Performed By: #### A LLBG ####[facility] [id number] [place] [address] [place] Hemoglobin (Bld) [Mass/Vol] 14.2 g/dL Normal 13.0-17.0 [facility] Comment on above: Order Comment: Speci men Type: ARTERIAL BLOOD SPECIMENOrdering Facility: [facility] Address: [address] [place] [address] Performed By: #### A LLBG ####[facility] [id number] [place] [address] [place] Lactate [Moles/Vol] 3.5 mmol/L High 0.5-2.2 [facility] Comment on above: Order Comment: Speci men Type: ARTERIAL BLOOD SPECIMENOrdering Facility: [facility] Address: [address] [place] [address] Performed By: #### A LLBG ####[facility] [id number] [address] [place] Methemoglobin (Bld) [Mass fraction] 1.0 % Normal 0.0-1.5 [facility] Comment on above: Order Comment: Speci men Type: ARTERIAL BLOOD SPECIMENOrdering Facility: [facility] Address: [address] [place] [id number] Performed By: #### A LLBG ####[facility] [id number] [place] [address] [place] Oxygen (Bld) [Partial pressure] 281 mm Hg High 85-95 [facility] Comment on above: Order Comment: Speci men Type: ARTERIAL BLOOD SPECIMENOrdering Facility: [facility] Address: [address] [place] [id number] Performed By: #### A LLBG ####[facility] [id number] [place] [address] [place] Oxygen adjusted to patient's actual temperature (Bld) [Partial pressure] 281 mmHg High 85-95 [facility] Comment on above: Order Comment: Speci men Type: ARTERIAL BLOOD SPECIMENOrdering Facility: [facility] Address: [address] Performed By: #### A LLBG ####[facility] [id number] [place] [address] [place] Oxyhemoglobin (BldA) [Mass fraction] 98 % Normal 95-98 [facility] Comment on above: Order Comment: Speci men Type: ARTERIAL BLOOD SPECIMENOrdering Facility: [facility] Address: [address] Performed By: #### A LLBG ####[facility] [id number] [place] [address] [place] pH (Bld) 7.34 [pH] Low 7.35-7.45 [facility] Comment on above: Order Comment: Speci men Type: ARTERIAL BLOOD SPECIMENOrdering Facility: [facility] Address: [address] [place] [id number] Performed By: #### A LLBG ####[facility] [id number] [place] [address] [place] pH adjusted to patient's actual temperature (Bld) 7.34 Low 7.35-7.45 [facility] Comment on above: Order Comment: Speci men Type: ARTERIAL BLOOD SPECIMENOrdering Facility: [facility] Address: [address] [place] [id number] Performed By: #### A LLBG ####[facility] [id number] [place] [address] [place] Potassium [Moles/Vol] 4.7 mmol/L Normal 3.5-5.0 [facility] Comment on above: Order Comment: Speci men Type: ARTERIAL BLOOD SPECIMENOrdering Facility: [facility] Address: [address] [place] [id number] Performed By: #### A LLBG ####[facility] [id number] [place] [address] [place] Sodium [Moles/Vol] 134 mmol/L Low 136-144 [facility] Comment on above: Order Comment: Speci men Type: ARTERIAL BLOOD SPECIMENOrdering Facility: [facility] Address: [address] [place] [id number] Performed By: #### A LLBG ####[facility] [id number] [place] [address] [place] Base deficit (BldA) [Moles/Vol] -5 mmol/L Low -2-0 [facility] Comment on above: Order Comment: Speci men Type: ARTERIAL BLOOD SPECIMENOrdering Facility: [facility] Address: [address] [place] [address] Performed By: #### A LLBG ####[facility] [id number] [address] [place] Calcium.ionized (Bld) [Mass/Vol] 1.39 mmol/L High 1.08-1.30 [facility] Comment on above: Order Comment: Speci men Type: ARTERIAL BLOOD SPECIMENOrdering Facility: [facility] Address: [address] [place] [id number] Performed By: #### A LLBG ####[facility] [id number] [place] [address] [place] Calcium.ionized adjusted to pH 7.4 (BldA) [Moles/Vol] 1.33 mmol/L High 1.08-1.30 [facility] Comment on above: Order Comment: Speci men Type: ARTERIAL BLOOD SPECIMENOrdering Facility: [facility] Address: [address] [place] [id number] Performed By: #### A LLBG ####[facility] [id number] [place] [address] [place] Carboxyhemoglobin (BldA) [Mass fraction] 1.0 % Normal 0.0-2.0 [facility] Comment on above: Order Comment: Speci men Type: ARTERIAL BLOOD SPECIMENOrdering Facility: [facility] Address: [address] [place] [address] Result Comment: Carb oxyhemoglobin Reference Range for Smokers: 2.0-8.0% Performed By: #### A LLBG ####[facility] [id number] [address] [place] CO2 (Bld) [Partial pressure] 40 mm Hg Normal 36-46 [facility] Comment on above: Order Comment: Speci men Type: ARTERIAL BLOOD SPECIMENOrdering Facility: [facility] Address: [address] [place] [address] Performed By: #### A LLBG ####[facility] [id number] [place] [address] [place] CO2 [Moles/Vol] 21 mmol/L Low 22-28 [facility] Comment on above: Order Comment: Speci men Type: ARTERIAL BLOOD SPECIMENOrdering Facility: [facility] Address: [address] [place] [address] Performed By: #### A LLBG ####[facility] [id number] [place] [address] [place] CO2 adjusted to patient's actual temperature (Bld) [Partial pressure] 40 mmHg Normal 36-46 [facility] Comment on above: Order Comment: Speci men Type: ARTERIAL BLOOD SPECIMENOrdering Facility: [facility] Address: [address] [place] [address] Performed By: #### A LLBG ####[facility] [id number] [place] [address] [place] Glucose [Mass/Vol] 222 mg/dL High 60-105 [facility] Comment on above: Order Comment: Speci men Type: ARTERIAL BLOOD SPECIMENOrdering Facility: [facility] Address: [address] Performed By: #### A LLBG ####[facility] [id number] [place] [address] [place] HCO3 (Bld) [Moles/Vol] 20 mmol/L Low 22-26 [facility] Comment on above: Order Comment: Speci men Type: ARTERIAL BLOOD SPECIMENOrdering Facility: [facility] Address: [address] Performed By: #### A LLBG ####[facility] [id number] [place] [address] [place] Hematocrit (Bld) [Volume fraction] 35.9 % Low 39.0-51.0 [facility] Comment on above: Order Comment: Speci men Type: ARTERIAL BLOOD SPECIMENOrdering Facility: [facility] Address: [address] [place] [place] [id number] Performed By: #### A LLBG ####[facility] [id number] [place] [address] [place] Hemoglobin (Bld) [Mass/Vol] 11.7 g/dL Low 13.0-17.0 [facility] Comment on above: Order Comment: Speci men Type: ARTERIAL BLOOD SPECIMENOrdering Facility: [facility] Address: [address] Performed By: #### A LLBG ####[facility] [id number] [place] [address] [place] Lactate [Moles/Vol] 4.4 mmol/L High 0.5-2.2 [facility] Comment on above: Order Comment: Speci men Type: ARTERIAL BLOOD SPECIMENOrdering Facility: [facility] Address: [address] Performed By: #### A LLBG ####[facility] [id number] [place] [address] [place] Methemoglobin (Bld) [Mass fraction] 1.0 % Normal 0.0-1.5 [facility] Comment on above: Order Comment: Speci men Type: ARTERIAL BLOOD SPECIMENOrdering Facility: [facility] Address: [address] [place] [address] Performed By: #### A LLBG ####[facility] [id number] [place] [address] [place] Oxygen (Bld) [Partial pressure] 90 mm Hg Normal 85-95 [facility] Comment on above: Order Comment: Speci men Type: ARTERIAL BLOOD SPECIMENOrdering Facility: [facility] Address: [address] [place], [place] [id number] Performed By: #### A LLBG ####[facility] [id number] [place] [address] [place] Oxygen adjusted to patient's actual temperature (Bld) [Partial pressure] 90 mmHg Normal 85-95 [facility] Comment on above: Order Comment: Speci men Type: ARTERIAL BLOOD SPECIMENOrdering Facility: [facility] Address: [address] [place], [place] [id number] Performed By: #### A LLBG ####[facility] [id number] [place] [address] [place] Oxyhemoglobin (BldA) [Mass fraction] 94 % Low 95-98 [facility] Comment on above: Order Comment: Speci men Type: ARTERIAL BLOOD SPECIMENOrdering Facility: [facility] Address: [address] [place], [place] [id number] Performed By: #### A LLBG ####[facility] [id number] [place] [address] [place] pH (Bld) 7.32 [pH] Low 7.35-7.45 [facility] Comment on above: Order Comment: Speci men Type: ARTERIAL BLOOD SPECIMENOrdering Facility: [facility] Address: [address] [address] Performed By: #### A LLBG ####[facility] [id number] [place] [address] [place] pH adjusted to patient's actual temperature (Bld) 7.32 Low 7.35-7.45 [facility] Comment on above: Order Comment: Speci men Type: ARTERIAL BLOOD SPECIMENOrdering Facility: [facility] Address: [address] [place] [address] Performed By: #### A LLBG ####[facility] [id number] [place] [address] [place] Potassium [Moles/Vol] 4.4 mmol/L Normal 3.5-5.0 [facility] Comment on above: Order Comment: Speci men Type: ARTERIAL BLOOD SPECIMENOrdering Facility: [facility] Address: [address] Performed By: #### A LLBG ####[facility] [id number] [place] [address] [place] Sodium [Moles/Vol] 134 mmol/L Low 136-144 [facility] Comment on above: Order Comment: Speci men Type: ARTERIAL BLOOD SPECIMENOrdering Facility: [facility] Address: [address] Performed By: #### A LLBG ####[facility] [id number] [place] [address] [place] Base deficit (BldA) [Moles/Vol] -3 mmol/L Low -2-0 [facility] Comment on above: Order Comment: Speci men Type: ARTERIAL BLOOD SPECIMENOrdering Facility: [facility] Address: [address] Performed By: #### A LLBG ####[facility] [id number] [place] [address] [place] Calcium.ionized (Bld) [Mass/Vol] 1.14 mmol/L Normal 1.08-1.30 [facility] Comment on above: Order Comment: Speci men Type: ARTERIAL BLOOD SPECIMENOrdering Facility: [facility] Address: [address] [place] [address] Performed By: #### A LLBG ####[facility] [id number] [place] [address] [place] Calcium.ionized adjusted to pH 7.4 (BldA) [Moles/Vol] 1.11 mmol/L Normal 1.08-1.30 [facility] Comment on above: Order Comment: Speci men Type: ARTERIAL BLOOD SPECIMENOrdering Facility: [facility] Address: [address] [place] [address] Performed By: #### A LLBG ####[facility] [id number] [place] [address] [place] Carboxyhemoglobin (BldA) [Mass fraction] 1.2 % Normal 0.0-2.0 [facility] Comment on above: Order Comment: Speci men Type: ARTERIAL BLOOD SPECIMENOrdering Facility: [facility] Address: [address] [place] [address] Result Comment: Carb oxyhemoglobin Reference Range for Smokers: 2.0-8.0% Performed By: #### A LLBG ####[facility] [id number] [place] [address] [place] CO2 (Bld) [Partial pressure] 41 mm Hg Normal 36-46 [facility] Comment on above: Order Comment: Speci men Type: ARTERIAL BLOOD SPECIMENOrdering Facility: [facility] Address: [address] [place] [address] Performed By: #### A LLBG ####[facility] [id number] [place] [address] [place] CO2 [Moles/Vol] 23 mmol/L Normal 22-28 [facility] Comment on above: Order Comment: Speci men Type: ARTERIAL BLOOD SPECIMENOrdering Facility: [facility] Address: [address] [place] [address] Performed By: #### A LLBG ####[facility] [id number] [place] [address] [place] CO2 adjusted to patient's actual temperature (Bld) [Partial pressure] 41 mmHg Normal 36-46 [facility] Comment on above: Order Comment: Speci men Type: ARTERIAL BLOOD SPECIMENOrdering Facility: [facility] Address: [address] [place] [address] Performed By: #### A LLBG ####[facility] [id number] [place] [address] [place] Glucose [Mass/Vol] 212 mg/dL High 60-105 [facility] Comment on above: Order Comment: Speci men Type: ARTERIAL BLOOD SPECIMENOrdering Facility: [facility] Address: [address] [place] [address] Performed By: #### A LLBG ####[facility] [id number] [place] [address] [place] HCO3 (Bld) [Moles/Vol] 22 mmol/L Normal 22-26 [facility] Comment on above: Order Comment: Speci men Type: ARTERIAL BLOOD SPECIMENOrdering Facility: [facility] Address: [address] [place], [place] [id number] Performed By: #### A LLBG ####[facility] [id number] [place] [address] [place] Hematocrit (Bld) [Volume fraction] 32.5 % Low 39.0-51.0 [facility] Comment on above: Order Comment: Speci men Type: ARTERIAL BLOOD SPECIMENOrdering Facility: [facility] Address: [address] [address] Performed By: #### A LLBG ####[facility] [id number] [place] [address] [place] Hemoglobin (Bld) [Mass/Vol] 10.5 g/dL Low 13.0-17.0 [facility] Comment on above: Order Comment: Speci men Type: ARTERIAL BLOOD SPECIMENOrdering Facility: [facility] Address: [address] [address] Performed By: #### A LLBG ####[facility] [id number] [place] [address] [place] Lactate [Moles/Vol] 3.8 mmol/L High 0.5-2.2 [facility] Comment on above: Order Comment: Speci men Type: ARTERIAL BLOOD SPECIMENOrdering Facility: [facility] Address: [address] Performed By: #### A LLBG ####[facility] [id number] [place] [address] [place] Methemoglobin (Bld) [Mass fraction] 1.2 % Normal 0.0-1.5 [facility] Comment on above: Order Comment: Speci men Type: ARTERIAL BLOOD SPECIMENOrdering Facility: [facility] Address: [address] Performed By: #### A LLBG ####[facility] [id number] [place] [address] [place] Oxygen (Bld) [Partial pressure] 233 mm Hg High 85-95 [facility] Comment on above: Order Comment: Speci men Type: ARTERIAL BLOOD SPECIMENOrdering Facility: [facility] Address: [address] Performed By: #### A LLBG ####[facility] [id number] [place] [address] [place] Oxygen adjusted to patient's actual temperature (Bld) [Partial pressure] 233 mmHg High 85-95 [facility] Comment on above: Order Comment: Speci men Type: ARTERIAL BLOOD SPECIMENOrdering Facility: [facility] Address: [address] [place], [place] [id number] Performed By: #### A LLBG ####[facility] [id number] [place] [address] [place] Oxyhemoglobin (BldA) [Mass fraction] 97 % Normal 95-98 [facility] Comment on above: Order Comment: Speci men Type: ARTERIAL BLOOD SPECIMENOrdering Facility: [facility] Address: [address] [place], [place] [id number] Performed By: #### A LLBG ####[facility] [id number] [place] [address] [place] pH (Bld) 7.35 [pH] Normal 7.35-7.45 [facility] Comment on above: Order Comment: Speci men Type: ARTERIAL BLOOD SPECIMENOrdering Facility: [facility] Address: [address] [place], [place] [id number] Performed By: #### A LLBG ####[facility] [id number] [place] [address] [place] pH adjusted to patient's actual temperature (Bld) 7.35 Normal 7.35-7.45 [facility] Comment on above: Order Comment: Speci men Type: ARTERIAL BLOOD SPECIMENOrdering Facility: [facility] Address: [address] [place], [place] [id number] Performed By: #### A LLBG ####[facility] [id number] [place] [address] [place] Potassium [Moles/Vol] 4.6 mmol/L Normal 3.5-5.0 [facility] Comment on above: Order Comment: Speci men Type: ARTERIAL BLOOD SPECIMENOrdering Facility: [facility] Address: [address] [place], [place] [id number] Performed By: #### A LLBG ####[facility] [id number] [place] [address] [place] Sodium [Moles/Vol] 135 mmol/L Low 136-144 [facility] Comment on above: Order Comment: Speci men Type: ARTERIAL BLOOD SPECIMENOrdering Facility: [facility] Address: [address] [place], [place] [id number] Performed By: #### A LLBG ####[facility] [id number] [place] [address] [place] Base excess Calc (Bld) [Moles/Vol] 0 mmol/L Normal 0-2 [facility] Comment on above: Order Comment: Speci men Type: ARTERIAL BLOOD SPECIMENOrdering Facility: [facility] Address: [address] [place], [place] [id number] Performed By: #### A LLBG ####[facility] [id number] [address] [place] Calcium.ionized (Bld) [Mass/Vol] 1.17 mmol/L Normal 1.08-1.30 [facility] Comment on above: Order Comment: Speci men Type: ARTERIAL BLOOD SPECIMENOrdering Facility: [facility] Address: [address] [place], [place] [id number] Performed By: #### A LLBG ####[facility] [id number] [place] [address] [place] Calcium.ionized adjusted to pH 7.4 (BldA) [Moles/Vol] 1.16 mmol/L Normal 1.08-1.30 [facility] Comment on above: Order Comment: Speci men Type: ARTERIAL BLOOD SPECIMENOrdering Facility: [facility] Address: [address] Performed By: #### A LLBG ####[facility] [id number] [place] [address] [place] Carboxyhemoglobin (BldA) [Mass fraction] 1.0 % Normal 0.0-2.0 [facility] Comment on above: Order Comment: Speci men Type: ARTERIAL BLOOD SPECIMENOrdering Facility: [facility] Address: [address] Result Comment: Carb oxyhemoglobin Reference Range for Smokers: 2.0-8.0% Performed By: #### A LLBG ####[facility] [id number] [address] [place] CO2 (Bld) [Partial pressure] 41 mm Hg Normal 36-46 [facility] Comment on above: Order Comment: Speci men Type: ARTERIAL BLOOD SPECIMENOrdering Facility: [facility] Address: [address] Performed By: #### A LLBG ####[facility] [id number] [place] [address] [place] CO2 [Moles/Vol] 25 mmol/L Normal 22-28 [facility] Comment on above: Order Comment: Speci men Type: ARTERIAL BLOOD SPECIMENOrdering Facility: [facility] Address: [address] [place] [address] Performed By: #### A LLBG ####[facility] [id number] [place] [address] [place] CO2 adjusted to patient's actual temperature (Bld) [Partial pressure] 41 mmHg Normal 36-46 [facility] Comment on above: Order Comment: Speci men Type: ARTERIAL BLOOD SPECIMENOrdering Facility: [facility] Address: [address] Performed By: #### A LLBG ####[facility] [id number] [place] [address] [place] Glucose [Mass/Vol] 144 mg/dL High 60-105 [facility] Comment on above: Order Comment: Speci men Type: ARTERIAL BLOOD SPECIMENOrdering Facility: [facility] Address: [address] [place] [address] Performed By: #### A LLBG ####[facility] [id number] [place] [address] [place] HCO3 (Bld) [Moles/Vol] 24 mmol/L Normal 22-26 [facility] Comment on above: Order Comment: Speci men Type: ARTERIAL BLOOD SPECIMENOrdering Facility: [facility] Address: [address] [place] [address] Performed By: #### A LLBG ####[facility] [id number] [address] [place] Methemoglobin (Bld) [Mass fraction] 0.8 % Normal 0.0-1.5 [facility] Comment on above: Order Comment: Speci men Type: ARTERIAL BLOOD SPECIMENOrdering Facility: [facility] Address: [address] [place], [place] [id number] Performed By: #### A LLBG ####[facility] [id number] [place] [address] [place] Oxygen (Bld) [Partial pressure] 340 mm Hg High 85-95 [facility] Comment on above: Order Comment: Speci men Type: ARTERIAL BLOOD SPECIMENOrdering Facility: [facility] Address: [address] [place], [place] [id number] Performed By: #### A LLBG ####[facility] [id number] [place] [address] [place] Oxygen adjusted to patient's actual temperature (Bld) [Partial pressure] 340 mmHg High 85-95 [facility] Comment on above: Order Comment: Speci men Type: ARTERIAL BLOOD SPECIMENOrdering Facility: [facility] Address: [address] [address] Performed By: #### A LLBG ####[facility] [id number] [place] [address] [place] Oxyhemoglobin (BldA) [Mass fraction] 98 % Normal 95-98 [facility] Comment on above: Order Comment: Speci men Type: ARTERIAL BLOOD SPECIMENOrdering Facility: [facility] Address: [address] Performed By: #### A LLBG ####[facility] [id number] [place] [address] [place] pH (Bld) 7.39 [pH] Normal 7.35-7.45 [facility] Comment on above: Order Comment: Speci men Type: ARTERIAL BLOOD SPECIMENOrdering Facility: [facility] Address: [address] [place], [place] [id number] Performed By: #### A LLBG ####[facility] [id number] [place] [address] [place] pH adjusted to patient's actual temperature (Bld) 7.39 Normal 7.35-7.45 [facility] Comment on above: Order Comment: Speci men Type: ARTERIAL BLOOD SPECIMENOrdering Facility: [facility] Address: [address] Performed By: #### A LLBG ####[facility] [id number] [place] [address] [place] Potassium [Moles/Vol] 4.9 mmol/L Normal 3.5-5.0 [facility] Comment on above: Order Comment: Speci men Type: ARTERIAL BLOOD SPECIMENOrdering Facility: [facility] Address: [address] Performed By: #### A LLBG ####[facility] [id number] [place] [address] [place] Sodium [Moles/Vol] 139 mmol/L Normal 136-144 [facility] Comment on above: Order Comment: Speci men Type: ARTERIAL BLOOD SPECIMENOrdering Facility: [facility] Address: [address] [place] [address] Performed By: #### A LLBG ####[facility] [id number] [place] [address] [place] Base excess Calc (Bld) [Moles/Vol] 1 mmol/L Normal 0-2 [facility] Comment on above: Order Comment: Speci men Type: ARTERIAL BLOOD SPECIMENOrdering Facility: [facility] Address: [address] [place] [address] Performed By: #### A LLBG ####[facility] [id number] [address] [place] Calcium.ionized (Bld) [Mass/Vol] 1.26 mmol/L Normal 1.08-1.30 [facility] Comment on above: Order Comment: Speci men Type: ARTERIAL BLOOD SPECIMENOrdering Facility: [facility] Address: [address] [place] [id number] Performed By: #### A LLBG ####[facility] [id number] [place] [address] [place] Calcium.ionized adjusted to pH 7.4 (BldA) [Moles/Vol] 1.27 mmol/L Normal 1.08-1.30 [facility] Comment on above: Order Comment: Speci men Type: ARTERIAL BLOOD SPECIMENOrdering Facility: [facility] Address: [address] [place], [place] [id number] Performed By: #### A LLBG ####[facility] [id number] [place] [address] [place] Carboxyhemoglobin (BldA) [Mass fraction] 0.6 % Normal 0.0-2.0 [facility] Comment on above: Order Comment: Speci men Type: ARTERIAL BLOOD SPECIMENOrdering Facility: [facility] Address: [address] [place] [address] Result Comment: Carb oxyhemoglobin Reference Range for Smokers: 2.0-8.0% Performed By: #### A LLBG ####[facility] [id number] [place] [address] [place] CO2 (Bld) [Partial pressure] 39 mm Hg Normal 36-46 [facility] Comment on above: Order Comment: Speci men Type: ARTERIAL BLOOD SPECIMENOrdering Facility: [facility] Address: [address] [place] [address] Performed By: #### A LLBG ####[facility] [id number] [place] [address] [place] CO2 [Moles/Vol] 26 mmol/L Normal 22-28 [facility] Comment on above: Order Comment: Speci men Type: ARTERIAL BLOOD SPECIMENOrdering Facility: [facility] Address: [address] [place] [id number] Performed By: #### A LLBG ####[facility] [id number] [place] [address] [place] CO2 adjusted to patient's actual temperature (Bld) [Partial pressure] 39 mmHg Normal 36-46 [facility] Comment on above: Order Comment: Speci men Type: ARTERIAL BLOOD SPECIMENOrdering Facility: [facility] Address: [address] [place], [place] [id number] Performed By: #### A LLBG ####[facility] [id number] [place] [address] [place] Glucose [Mass/Vol] 112 mg/dL High 60-105 [facility] Comment on above: Order Comment: Speci men Type: ARTERIAL BLOOD SPECIMENOrdering Facility: [facility] Address: [address] Performed By: #### A LLBG ####[facility] [id number] [place] [address] [place] HCO3 (Bld) [Moles/Vol] 25 mmol/L Normal 22-26 [facility] Comment on above: Order Comment: Speci men Type: ARTERIAL BLOOD SPECIMENOrdering Facility: [facility] Address: [address] Performed By: #### A LLBG ####[facility] [id number] [place] [address] [place] Hematocrit (Bld) [Volume fraction] 45.7 % Normal 39.0-51.0 [facility] Comment on above: Order Comment: Speci men Type: ARTERIAL BLOOD SPECIMENOrdering Facility: [facility] Address: [address] [place] [address] Performed By: #### A LLBG ####[facility] [id number] [place] [address] [place] Hemoglobin (Bld) [Mass/Vol] 14.9 g/dL Normal 13.0-17.0 [facility] Comment on above: Order Comment: Speci men Type: ARTERIAL BLOOD SPECIMENOrdering Facility: [facility] Address: [address] Performed By: #### A LLBG ####[facility] [id number] [place] [address] [place] Lactate [Moles/Vol] 1.2 mmol/L Normal 0.5-2.2 [facility] Comment on above: Order Comment: Speci men Type: ARTERIAL BLOOD SPECIMENOrdering Facility: [facility] Address: [address] [place] [id number] Performed By: #### A LLBG ####[facility] [id number] [place] [address] [place] Methemoglobin (Bld) [Mass fraction] 0.9 % Normal 0.0-1.5 [facility] Comment on above: Order Comment: Speci men Type: ARTERIAL BLOOD SPECIMENOrdering Facility: [facility] Address: [address] [place] [address] Performed By: #### A LLBG ####[facility] [id number] [place] [address] [place] Oxygen (Bld) [Partial pressure] 90 mm Hg Normal 85-95 [facility] Comment on above: Order Comment: Speci men Type: ARTERIAL BLOOD SPECIMENOrdering Facility: [facility] Address: [address] [place] [address] Performed By: #### A LLBG ####[facility] [id number] [place] [address] [place] Oxygen adjusted to patient's actual temperature (Bld) [Partial pressure] 90 mmHg Normal 85-95 [facility] Comment on above: Order Comment: Speci men Type: ARTERIAL BLOOD SPECIMENOrdering Facility: [facility] Address: [address] [place] [address] Performed By: #### A LLBG ####[facility] [id number] [place] [address] [place] Oxyhemoglobin (BldA) [Mass fraction] 96 % Normal 95-98 [facility] Comment on above: Order Comment: Speci men Type: ARTERIAL BLOOD SPECIMENOrdering Facility: [facility] Address: [address] [place], [place] [id number] Performed By: #### A LLBG ####[facility] [id number] [place] [address] [place] pH (Bld) 7.41 [pH] Normal 7.35-7.45 [facility] Comment on above: Order Comment: Speci men Type: ARTERIAL BLOOD SPECIMENOrdering Facility: [facility] Address: [address] [place] [address] Performed By: #### A LLBG ####[facility] [id number] [place] [address] [place] pH adjusted to patient's actual temperature (Bld) 7.41 Normal 7.35-7.45 [facility] Comment on above: Order Comment: Speci men Type: ARTERIAL BLOOD SPECIMENOrdering Facility: [facility] Address: [address] [place] [address] Performed By: #### A LLBG ####[facility] [id number] [place] [address] [place] Potassium [Moles/Vol] 3.9 mmol/L Normal 3.5-5.0 [facility] Comment on above: Order Comment: Speci men Type: ARTERIAL BLOOD SPECIMENOrdering Facility: [facility] Address: [address] [place] [address] Performed By: #### A LLBG ####[facility] [id number] [place] [address] [place] [place] Sodium [Moles/Vol] 142 mmol/L Normal 136-144 [facility] Comment on above: Order Comment: Speci men Type: ARTERIAL BLOOD SPECIMENOrdering Facility: [facility] Address: [address] [place] [id number] Performed By: #### A LLBG ####[facility] [id number] [place] [address] [place] [id number] 07-19-2022 ECG01 Normal [facility] Fibrinogen PPP-mCncon 2021 Fibrinogen Coag (PPP) [Mass/Vol] 136 mg/dL Low 200-400 [facility] Comment on above: Order Comment: Speci men Type: BLOOD SPECIMENOrdering Facility: [facility] Address: [address] [place] [address] Performed By: #### 3 255-7 ####[facility] [id number] [place] [address] [place] Gas + CO Pnl BldVon 07-19-20 22 Body temperature 98.6 [degF] Normal [facility] Comment on above: Order Comment: Speci men Type: VENOUS BLOOD SPECIMENOrdering Facility: [facility] Address: [address] Performed By: #### 2 4344-4 ####[facility] [id number] [address] [place] Order Comment: Speci men Type: ARTERIAL BLOOD SPECIMENOrdering Facility: [facility] Address: [address] Performed By: #### A LLBG ####[facility] [id number] [place] [address] [place] HCO3 (Bld) [Moles/Vol] 23 mmol/L Normal 22-26 [facility] Comment on above: Order Comment: Speci men Type: VENOUS BLOOD SPECIMENOrdering Facility: [facility] Address: [address] [place] [id number] Performed By: #### 2 4344-4 ####[facility] [id number] [address] [place] Order Comment: Speci men Type: ARTERIAL BLOOD SPECIMENOrdering Facility: [facility] Address: [address] Performed By: #### A LLBG ####[facility] [id number] [place] [address] [place] O2 THERAPY NC = Nasal Cannula Normal [facility] Comment on above: Order Comment: Speci men Type: VENOUS BLOOD SPECIMENOrdering Facility: [facility] Address: [address] [place] [phone] Performed By: #### 2 4344-4 ####[facility] [id number] [address] Order Comment: Speci men Type: ARTERIAL BLOOD SPECIMENOrdering Facility: [facility] Address: [address] Performed By: #### A LLBG ####[facility] [id number] [place] [address] [place] Hematocrit (Bld) [Volume fraction] 35.7 % Low 39.0-51.0 [facility] Comment on above: Order Comment: Speci men Type: VENOUS BLOOD SPECIMENOrdering Facility: [facility] Address: [address] [place] [phone] Performed By: #### 2 4344-4 ####[facility] [id number] [address] Order Comment: Speci men Type: ARTERIAL BLOOD SPECIMENOrdering Facility: [facility] Address: [address] [place] [id number] Performed By: #### A LLBG ####[facility] [id number] [address] [place] Hemoglobin (Bld) [Mass/Vol] 11.6 g/dL Low 13.0-17.0 [facility] Comment on above: Order Comment: Speci men Type: VENOUS BLOOD SPECIMENOrdering Facility: [facility] Address: [address] Performed By: #### 2 4344-4 ####[facility] [id number] [address] Order Comment: Speci men Type: ARTERIAL BLOOD SPECIMENOrdering Facility: [facility] Address: [address] [place] [id number] Performed By: #### A LLBG ####[facility] [id number] [address] OF [facility] Lactate [Moles/Vol] 3.2 mmol/L High 0.5-2.2 [facility] Comment on above: Order Comment: Speci men Type: VENOUS BLOOD SPECIMENOrdering Facility: [facility] Address: [address] [place] [phone] Performed By: #### 2 4344-4 ####[facility] [id number] [address] [place] Order Comment: Speci men Type: ARTERIAL BLOOD SPECIMENOrdering Facility: [facility] Address: [address] [place] [address] Performed By: #### A LLBG ####[facility] [id number] [address] [place] Gas and Carbon monoxide pane l (BldV)on 07-19-2022 BASE DEFICIT, VENOUS -2 mmol/L Normal -2-0 [facility] Comment on above: Order Comment: Speci men Type: VENOUS BLOOD SPECIMENOrdering Facility: [facility] Address: [address] [place] [phone] Performed By: #### 2 4344-4 ####[facility] [id number] [address] [place] Calcium.ionized (Bld) [Mass/Vol] 1.18 mmol/L Normal 1.08-1.30 [facility] Comment on above: Order Comment: Speci men Type: VENOUS BLOOD SPECIMENOrdering Facility: [facility] Address: [address] [place] [phone] Performed By: #### 2 4344-4 ####[facility] [id number] [address] [place] Calcium.ionized adjusted to pH 7.4 (BldA) [Moles/Vol] 1.15 mmol/L Normal 1.08-1.30 [facility] Comment on above: Order Comment: Speci men Type: VENOUS BLOOD SPECIMENOrdering Facility: [facility] Address: [address] [place] [address] Performed By: #### 2 4344-4 ####[facility] [id number] [place] [address] [place] Carboxyhemoglobin (BldV) [Mass fraction] 1.1 % Normal 0.0-2.0 [facility] Comment on above: Order Comment: Speci men Type: VENOUS BLOOD SPECIMENOrdering Facility: [facility] Address: [address] [place] [address] Result Comment: Carb oxyhemoglobin Reference Range for Smokers: 2.0-8.0% Performed By: #### 2 4344-4 ####[facility] [id number] [place] [address] [place] CO2 (BldV) [Partial pressure] 43 mm[Hg] Normal 42-55 [facility] Comment on above: Order Comment: Speci men Type: VENOUS BLOOD SPECIMENOrdering Facility: [facility] Address: [address] [place] [address] Performed By: #### 2 4344-4 ####[facility] [id number] [place] [address] [place] CO2 [Moles/Vol] 25 mmol/L Normal 25-29 [facility] Comment on above: Order Comment: Speci men Type: VENOUS BLOOD SPECIMENOrdering Facility: [facility] Address: [address] [place] [phone] Performed By: #### 2 4344-4 ####[facility] [id number] [place] [address] [place] Glucose [Mass/Vol] 141 mg/dL High 60-105 [facility] Comment on above: Order Comment: Speci men Type: VENOUS BLOOD SPECIMENOrdering Facility: [facility] Address: [address] [place] [address] Performed By: #### 2 4344-4 ####[facility] [id number] [place] [address] [place] Hematocrit (Bld) [Volume fraction] 41.0 % Normal 39.0-51.0 [facility] Comment on above: Order Comment: Speci men Type: VENOUS BLOOD SPECIMENOrdering Facility: [facility] Address: [address] [place] [address] Performed By: #### 2 4344-4 ####[facility] [id number] [place] [address] [place] Hemoglobin (Bld) [Mass/Vol] 13.3 g/dL Normal 13.0-17.0 [facility] Comment on above: Order Comment: Speci men Type: VENOUS BLOOD SPECIMENOrdering Facility: [facility] Address: [address] [place] [address] Performed By: #### 2 4344-4 ####[facility] [id number] [address] [place] Lactate [Moles/Vol] 2.4 mmol/L High 0.5-2.2 [facility] Comment on above: Order Comment: Speci men Type: VENOUS BLOOD SPECIMENOrdering Facility: [facility] Address: [address] Performed By: #### 2 4344-4 ####[facility] [id number] [place] [address] [place] Methemoglobin (Bld) [Mass fraction] 0.7 % Normal 0.0-1.5 [facility] Comment on above: Order Comment: Speci men Type: VENOUS BLOOD SPECIMENOrdering Facility: [facility] Address: [address] Performed By: #### 2 4344-4 ####[facility] [id number] [place] [address] [place] Oxygen (BldV) [Partial pressure] 36 mm[Hg] Normal 35-45 [facility] Comment on above: Order Comment: Speci men Type: VENOUS BLOOD SPECIMENOrdering Facility: [facility] Address: [address] [place] [phone] Performed By: #### 2 4344-4 ####[facility] [id number] [place] [address] [place] Oxygen saturation in Venous blood 68 % Normal 60-85 [facility] Comment on above: Order Comment: Speci men Type: VENOUS BLOOD SPECIMENOrdering Facility: [facility] Address: [address] [place] [phone] Performed By: #### 2 4344-4 ####[facility] [id number] [place] [address] [place] Oxyhemoglobin (BldV) [Mass fraction] 67 % Normal 60-85 [facility] Comment on above: Order Comment: Speci men Type: VENOUS BLOOD SPECIMENOrdering Facility: [facility] Address: [address] [place] [phone] Performed By: #### 2 4344-4 ####[facility] [id number] [place] [address] [place] pH (BldV) 7.36 [pH] Normal 7.32-7.42 [facility] Comment on above: Order Comment: Speci men Type: VENOUS BLOOD SPECIMENOrdering Facility: [facility] Address: [address] [place] [phone] Performed By: #### 2 4344-4 ####[facility] [id number] [place] [address] [place] Potassium [Moles/Vol] 4.2 mmol/L Normal 3.5-5.0 [facility] Comment on above: Order Comment: Speci men Type: VENOUS BLOOD SPECIMENOrdering Facility: [facility] Address: [address] Performed By: #### 2 4344-4 ####[facility] [id number] [place] [address] [place] Sodium [Moles/Vol] 139 mmol/L Normal 136-144 [facility] Comment on above: Order Comment: Speci men Type: VENOUS BLOOD SPECIMENOrdering Facility: [facility] Address: [address] [place] [address] Performed By: #### 2 4344-4 ####[facility] [id number] [place] [address] [place] BASE DEFICIT, VENOUS -2 mmol/L Normal -2-0 [facility] Comment on above: Order Comment: Speci men Type: VENOUS BLOOD SPECIMENOrdering Facility: [facility] Address: [address] [place] [phone] Performed By: #### 2 4344-4 ####[facility] [id number] [place] [address] [place] Body temperature 99.32 [degF] Normal [facility] Comment on above: Order Comment: Speci men Type: VENOUS BLOOD SPECIMENOrdering Facility: [facility] Address: [address] Performed By: #### 2 4344-4 ####[facility] [id number] [place] [address] [place] Calcium.ionized (Bld) [Mass/Vol] 1.17 mmol/L Normal 1.08-1.30 [facility] Comment on above: Order Comment: Speci men Type: VENOUS BLOOD SPECIMENOrdering Facility: [facility] Address: [address] Performed By: #### 2 4344-4 ####[facility] [id number] [place] [address] [place] Calcium.ionized adjusted to pH 7.4 (BldA) [Moles/Vol] 1.13 mmol/L Normal 1.08-1.30 [facility] Comment on above: Order Comment: Speci men Type: VENOUS BLOOD SPECIMENOrdering Facility: [facility] Address: [address] Performed By: #### 2 4344-4 ####[facility] [id number] [place] [address] [place] Carboxyhemoglobin (BldV) [Mass fraction] 1.5 % Normal 0.0-2.0 [facility] Comment on above: Order Comment: Speci men Type: VENOUS BLOOD SPECIMENOrdering Facility: [facility] Address: [address] Result Comment: Carb oxyhemoglobin Reference Range for Smokers: 2.0-8.0% Performed By: #### 2 4344-4 ####[facility] [id number] [address] [place] CO2 (BldV) [Partial pressure] 45 mm[Hg] Normal 42-55 [facility] Comment on above: Order Comment: Speci men Type: VENOUS BLOOD SPECIMENOrdering Facility: [facility] Address: [address] Performed By: #### 2 4344-4 ####[facility] [id number] [place] [address] [place] CO2 [Moles/Vol] 25 mmol/L Normal 25-29 [facility] Comment on above: Order Comment: Speci men Type: VENOUS BLOOD SPECIMENOrdering Facility: [facility] Address: [address] Performed By: #### 2 4344-4 ####[facility] [id number] [place] [address] [place] CO2 adjusted to patient's actual temperature (BldV) [Partial pressure] 46 mmHg Normal 42-55 [facility] Comment on above: Order Comment: Speci men Type: VENOUS BLOOD SPECIMENOrdering Facility: [facility] Address: [address] [place] [address] Performed By: #### 2 4344-4 ####[facility] [id number] [place] [address] [place] Glucose [Mass/Vol] 164 mg/dL High 60-105 [facility] Comment on above: Order Comment: Speci men Type: VENOUS BLOOD SPECIMENOrdering Facility: [facility] Address: [address] [place] [address] Performed By: #### 2 4344-4 ####[facility] [id number] [place] [address] [place] HCO3 (Bld) [Moles/Vol] 24 mmol/L Normal 24-28 [facility] Comment on above: Order Comment: Speci men Type: VENOUS BLOOD SPECIMENOrdering Facility: [facility] Address: [address] [place] [address] Performed By: #### 2 4344-4 ####[facility] [id number] [place] [address] [place] Hematocrit (Bld) [Volume fraction] 42.5 % Normal 39.0-51.0 [facility] Comment on above: Order Comment: Speci men Type: VENOUS BLOOD SPECIMENOrdering Facility: [facility] Address: [address] [place] [id number] Performed By: #### 2 4344-4 ####[facility] [id number] [place] [address] [place] Hemoglobin (Bld) [Mass/Vol] 13.9 g/dL Normal 13.0-17.0 [facility] Comment on above: Order Comment: Speci men Type: VENOUS BLOOD SPECIMENOrdering Facility: [facility] Address: [address] Performed By: #### 2 4344-4 ####[facility] [id number] [place] [address] [place] Lactate [Moles/Vol] 2.5 mmol/L High 0.5-2.2 [facility] Comment on above: Order Comment: Speci men Type: VENOUS BLOOD SPECIMENOrdering Facility: [facility] Address: [address] [place] [address] Performed By: #### 2 4344-4 ####[facility] [id number] [place] [address] [place] Methemoglobin (Bld) [Mass fraction] 1.5 % Normal 0.0-1.5 [facility] Comment on above: Order Comment: Speci men Type: VENOUS BLOOD SPECIMENOrdering Facility: [facility] Address: [address] [place] [id number] Performed By: #### 2 4344-4 ####[facility] [id number] [place] [address] [place] O2 THERAPY NC = Nasal Cannula Normal [facility] Comment on above: Order Comment: Speci men Type: VENOUS BLOOD SPECIMENOrdering Facility: [facility] Address: [address] Performed By: #### 2 4344-4 ####[facility] [id number] [place] [address] [place] Oxygen (BldV) [Partial pressure] 39 mm[Hg] Normal 35-45 [facility] Comment on above: Order Comment: Speci men Type: VENOUS BLOOD SPECIMENOrdering Facility: [facility] Address: [address] [place] [address] Performed By: #### 2 4344-4 ####[facility] [id number] [place] [address] [place] Oxygen adjusted to patient's actual temperature (BldV) [Partial pressure] 40 mmHg Normal 35-45 [facility] Comment on above: Order Comment: Speci men Type: VENOUS BLOOD SPECIMENOrdering Facility: [facility] Address: [address] Performed By: #### 2 4344-4 ####[facility] [id number] [place] [address] [place] Oxygen saturation in Venous blood 68 % Normal 60-85 [facility] Comment on above: Order Comment: Speci men Type: VENOUS BLOOD SPECIMENOrdering Facility: [facility] Address: [address] [place] [id number] Performed By: #### 2 4344-4 ####[facility] [id number] [place] [address] [place] Oxyhemoglobin (BldV) [Mass fraction] 66 % Normal 60-85 [facility] Comment on above: Order Comment: Speci men Type: VENOUS BLOOD SPECIMENOrdering Facility: [facility] Address: [address] [place] [id number] Performed By: #### 2 4344-4 ####[facility] [id number] [place] [address] [place] pH (BldV) 7.34 [pH] Normal 7.32-7.42 [facility] Comment on above: Order Comment: Speci men Type: VENOUS BLOOD SPECIMENOrdering Facility: [facility] Address: [address] [place] [id number] Performed By: #### 2 4344-4 ####[facility] [id number] [place] [address] [place] pH adjusted to patient's actual temperature (BldV) 7.33 Normal 7.32-7.42 [facility] Comment on above: Order Comment: Speci men Type: VENOUS BLOOD SPECIMENOrdering Facility: [facility] Address: [address] [place] [address] Performed By: #### 2 4344-4 ####[facility] [id number] [place] [address] [place] Potassium [Moles/Vol] 4.2 mmol/L Normal 3.5-5.0 [facility] Comment on above: Order Comment: Speci men Type: VENOUS BLOOD SPECIMENOrdering Facility: [facility] Address: [address] [place] [address] Performed By: #### 2 4344-4 ####[facility] [id number] [place] [address] [place] Sodium [Moles/Vol] 138 mmol/L Normal 136-144 [facility] Comment on above: Order Comment: Speci men Type: VENOUS BLOOD SPECIMENOrdering Facility: [facility] Address: [address] [place] [phone] Performed By: #### 2 4344-4 ####[facility] [id number] [place] [address] [place] BASE DEFICIT, VENOUS -2 mmol/L Normal -2-0 [facility] Comment on above: Order Comment: Speci men Type: VENOUS BLOOD SPECIMENOrdering Facility: [facility] Address: [address] [place] [phone] Performed By: #### 2 4344-4 ####[facility] [id number] [place] [address] [place] Calcium.ionized (Bld) [Mass/Vol] 1.24 mmol/L Normal 1.08-1.30 [facility] Comment on above: Order Comment: Speci men Type: VENOUS BLOOD SPECIMENOrdering Facility: [facility] Address: [address] Performed By: #### 2 4344-4 ####[facility] [id number] [address] [place] Carboxyhemoglobin (BldV) [Mass fraction] 0.9 % Normal 0.0-2.0 [facility] Comment on above: Order Comment: Speci men Type: VENOUS BLOOD SPECIMENOrdering Facility: [facility] Address: [address] [place] [address] Result Comment: Carb oxyhemoglobin Reference Range for Smokers: 2.0-8.0% Performed By: #### 2 4344-4 ####[facility] [id number] [address] [place] CO2 (BldV) [Partial pressure] 46 mm[Hg] Normal 42-55 [facility] Comment on above: Order Comment: Speci men Type: VENOUS BLOOD SPECIMENOrdering Facility: [facility] Address: [address] [place] [address] Performed By: #### 2 4344-4 ####[facility] [id number] [place] [address] [place] CO2 [Moles/Vol] 25 mmol/L Normal 25-29 [facility] Comment on above: Order Comment: Speci men Type: VENOUS BLOOD SPECIMENOrdering Facility: [facility] Address: [address] Performed By: #### 2 4344-4 ####[facility] [id number] [place] [address] [place] CO2 adjusted to patient's actual temperature (BldV) [Partial pressure] 47 mmHg Normal 42-55 [facility] Comment on above: Order Comment: Speci men Type: VENOUS BLOOD SPECIMENOrdering Facility: [facility] Address: [address] Performed By: #### 2 4344-4 ####[facility] [id number] [place] [address] [place] Glucose [Mass/Vol] 152 mg/dL High 60-105 [facility] Comment on above: Order Comment: Speci men Type: VENOUS BLOOD SPECIMENOrdering Facility: [facility] Address: [address] [place] [id number] Performed By: #### 2 4344-4 ####[facility] [id number] [place] [address] [place] Hematocrit (Bld) [Volume fraction] 43.7 % Normal 39.0-51.0 [facility] Comment on above: Order Comment: Speci men Type: VENOUS BLOOD SPECIMENOrdering Facility: [facility] Address: [address] [place] [id number] Performed By: #### 2 4344-4 ####[facility] [id number] [address] [place] OF [facility] Hemoglobin (Bld) [Mass/Vol] 14.2 g/dL Normal 13.0-17.0 [facility] Comment on above: Order Comment: Speci men Type: VENOUS BLOOD SPECIMENOrdering Facility: [facility] Address: [address] [place] [address] Performed By: #### 2 4344-4 ####[facility] [id number] [place] [address] [place] Lactate [Moles/Vol] 2.0 mmol/L Normal 0.5-2.2 [facility] Comment on above: Order Comment: Speci men Type: VENOUS BLOOD SPECIMENOrdering Facility: [facility] Address: [address] [place] [id number] Performed By: #### 2 4344-4 ####[facility] [id number] [id number] [address] [place] Methemoglobin (Bld) [Mass fraction] 1.0 % Normal 0.0-1.5 [facility] Comment on above: Order Comment: Speci men Type: VENOUS BLOOD SPECIMENOrdering Facility: [facility] Address: [address] [place] [address] Performed By: #### 2 4344-4 ####[facility] [id number] [place] [address] [place] Oxygen (BldV) [Partial pressure] 40 mm[Hg] Normal 35-45 [facility] Comment on above: Order Comment: Speci men Type: VENOUS BLOOD SPECIMENOrdering Facility: [facility] Address: [address] [place] [address] Performed By: #### 2 4344-4 ####[facility] [id number] [address] [place] Oxygen adjusted to patient's actual temperature (BldV) [Partial pressure] 42 mmHg Normal 35-45 [facility] Comment on above: Order Comment: Speci men Type: VENOUS BLOOD SPECIMENOrdering Facility: [facility] Address: [address] [place] [id number] Performed By: #### 2 4344-4 ####[facility] [id number] [place] [address] [place] Oxygen saturation in Venous blood 69 % Normal 60-85 [facility] Comment on above: Order Comment: Speci men Type: VENOUS BLOOD SPECIMENOrdering Facility: [facility] Address: [address] [place] [id number] Performed By: #### 2 4344-4 ####[facility] [id number] [place] [address] [place] Oxyhemoglobin (BldV) [Mass fraction] 68 % Normal 60-85 [facility] Comment on above: Order Comment: Speci men Type: VENOUS BLOOD SPECIMENOrdering Facility: [facility] Address: [address] Performed By: #### 2 4344-4 ####[facility] [id number] [place] [address] [place] pH (BldV) 7.33 [pH] Normal 7.32-7.42 [facility] Comment on above: Order Comment: Speci men Type: VENOUS BLOOD SPECIMENOrdering Facility: [facility] Address: [address] [address] Performed By: #### 2 4344-4 ####[facility] [id number] [place] [address] [place] pH adjusted to patient's actual temperature (BldV) 7.32 Normal 7.32-7.42 [facility] Comment on above: Order Comment: Speci men Type: VENOUS BLOOD SPECIMENOrdering Facility: [facility] Address: [address] [address] Performed By: #### 2 4344-4 ####[facility] [id number] [place] [address] [place] Potassium [Moles/Vol] 4.2 mmol/L Normal 3.5-5.0 [facility] Comment on above: Order Comment: Speci men Type: VENOUS BLOOD SPECIMENOrdering Facility: [facility] Address: [address] Performed By: #### 2 4344-4 ####[facility] [id number] [place] [address] [place] Sodium [Moles/Vol] 140 mmol/L Normal 136-144 [facility] Comment on above: Order Comment: Speci men Type: VENOUS BLOOD SPECIMENOrdering Facility: [facility] Address: [address] Performed By: #### 2 4344-4 ####[facility] [id number] [place] [address] [place] BASE DEFICIT, VENOUS -2 mmol/L Normal -2-0 [facility] Comment on above: Order Comment: Speci men Type: VENOUS BLOOD SPECIMENOrdering Facility: [facility] Address: [address] [place] [address] Performed By: #### 2 4344-4 ####[facility] [id number] [place] [address] [place] Calcium.ionized adjusted to pH 7.4 (BldA) [Moles/Vol] 1.16 mmol/L Normal 1.08-1.30 [facility] Comment on above: Order Comment: Speci men Type: VENOUS BLOOD SPECIMENOrdering Facility: [facility] Address: [address] [place] [address] Performed By: #### 2 4344-4 ####[facility] [id number] [address] [place] Carboxyhemoglobin (BldV) [Mass fraction] 1.2 % Normal 0.0-2.0 [facility] Comment on above: Order Comment: Speci men Type: VENOUS BLOOD SPECIMENOrdering Facility: [facility] Address: [address] [place] [address] Result Comment: Carb oxyhemoglobin Reference Range for Smokers: 2.0-8.0% Performed By: #### 2 4344-4 ####[facility] [id number] [place] [address] [place] CO2 (BldV) [Partial pressure] 46 mm[Hg] Normal 42-55 [facility] Comment on above: Order Comment: Speci men Type: VENOUS BLOOD SPECIMENOrdering Facility: [facility] Address: [address] [place] [address] Performed By: #### 2 4344-4 ####[facility] [id number] [place] [address] [place] CO2 [Moles/Vol] 25 mmol/L Normal 25-29 [facility] Comment on above: Order Comment: Speci men Type: VENOUS BLOOD SPECIMENOrdering Facility: [facility] Address: [address] [place] [id number] Performed By: #### 2 4344-4 ####[facility] [id number] [place] [address] [place] CO2 adjusted to patient's actual temperature (BldV) [Partial pressure] 47 mmHg Normal 42-55 [facility] Comment on above: Order Comment: Speci men Type: VENOUS BLOOD SPECIMENOrdering Facility: [facility] Address: [address] [place] [id number] Performed By: #### 2 4344-4 ####[facility] [id number] [place] [address] [place] Glucose [Mass/Vol] 104 mg/dL Normal 60-105 [facility] Comment on above: Order Comment: Speci men Type: VENOUS BLOOD SPECIMENOrdering Facility: [facility] Address: [address] [place] [id number] Performed By: #### 2 4344-4 ####[facility] [id number] [place] [address] [place] HCO3 (Bld) [Moles/Vol] 24 mmol/L Normal 24-28 [facility] Comment on above: Order Comment: Speci men Type: VENOUS BLOOD SPECIMENOrdering Facility: [facility] Address: [address] [place] [id number] Performed By: #### 2 4344-4 ####[facility] [id number] [place] [address] [place] Hematocrit (Bld) [Volume fraction] 44.2 % Normal 39.0-51.0 [facility] Comment on above: Order Comment: Speci men Type: VENOUS BLOOD SPECIMENOrdering Facility: [facility] Address: [address] Performed By: #### 2 4344-4 ####[facility] [id number] [address] [place] Hemoglobin (Bld) [Mass/Vol] 14.4 g/dL Normal 13.0-17.0 [facility] Comment on above: Order Comment: Speci men Type: VENOUS BLOOD SPECIMENOrdering Facility: [facility] Address: [address] Performed By: #### 2 4344-4 ####[facility] [id number] [place] [address] [place] Lactate [Moles/Vol] 2.1 mmol/L Normal 0.5-2.2 [facility] Comment on above: Order Comment: Speci men Type: VENOUS BLOOD SPECIMENOrdering Facility: [facility] Address: [address] Performed By: #### 2 4344-4 ####[facility] [id number] [address] [place] Methemoglobin (Bld) [Mass fraction] 0.9 % Normal 0.0-1.5 [facility] Comment on above: Order Comment: Speci men Type: VENOUS BLOOD SPECIMENOrdering Facility: [facility] Address: [address] Performed By: #### 2 4344-4 ####[facility] [id number] [place] [address] [place] Oxygen (BldV) [Partial pressure] 40 mm[Hg] Normal 35-45 [facility] Comment on above: Order Comment: Speci men Type: VENOUS BLOOD SPECIMENOrdering Facility: [facility] Address: [address] Performed By: #### 2 4344-4 ####[facility] [id number] [place] [address] [place] Oxygen adjusted to patient's actual temperature (BldV) [Partial pressure] 40 mmHg Normal 35-45 [facility] Comment on above: Order Comment: Speci men Type: VENOUS BLOOD SPECIMENOrdering Facility: [facility] Address: [address] [place] [address] Performed By: #### 2 4344-4 ####[facility] [id number] [place] [address] [place] Oxygen saturation in Venous blood 69 % Normal 60-85 [facility] Comment on above: Order Comment: Speci men Type: VENOUS BLOOD SPECIMENOrdering Facility: [facility] Address: [address] [place] [address] Performed By: #### 2 4344-4 ####[facility] [id number] [place] [address] [place] Oxyhemoglobin (BldV) [Mass fraction] 68 % Normal 60-85 [facility] Comment on above: Order Comment: Speci men Type: VENOUS BLOOD SPECIMENOrdering Facility: [facility] Address: [address] [place] [id number] Performed By: #### 2 4344-4 ####[facility] [id number] [place] [address] [place] pH (BldV) 7.33 [pH] Normal 7.32-7.42 [facility] Comment on above: Order Comment: Speci men Type: VENOUS BLOOD SPECIMENOrdering Facility: [facility] Address: [address] [place] [id number] Performed By: #### 2 4344-4 ####[facility] [id number] [place] [address] [place] pH adjusted to patient's actual temperature (BldV) 7.33 Normal 7.32-7.42 [facility] Comment on above: Order Comment: Speci men Type: VENOUS BLOOD SPECIMENOrdering Facility: [facility] Address: [address] Performed By: #### 2 4344-4 ####[facility] [id number] [place] [address] [place] Potassium [Moles/Vol] 4.0 mmol/L Normal 3.5-5.0 [facility] Comment on above: Order Comment: Speci men Type: VENOUS BLOOD SPECIMENOrdering Facility: [facility] Address: [address] Performed By: #### 2 4344-4 ####[facility] [id number] [place] [address] [place] Sodium [Moles/Vol] 141 mmol/L Normal 136-144 [facility] Comment on above: Order Comment: Speci men Type: VENOUS BLOOD SPECIMENOrdering Facility: [facility] Address: [address] Performed By: #### 2 4344-4 ####[facility] [id number] [place] [address] [place] BASE DEFICIT, VENOUS -1 mmol/L Normal -2-0 [facility] Comment on above: Order Comment: Speci men Type: VENOUS BLOOD SPECIMENOrdering Facility: [facility] Address: [address] [place] [address] Performed By: #### 2 4344-4 ####[facility] [id number] [place] [address] [place] Body temperature 98.24 [degF] Normal [facility] Comment on above: Order Comment: Speci men Type: VENOUS BLOOD SPECIMENOrdering Facility: [facility] Address: [address] Performed By: #### 2 4344-4 ####[facility] [id number] [place] [address] [place] Calcium.ionized (Bld) [Mass/Vol] 1.27 mmol/L Normal 1.08-1.30 [facility] Comment on above: Order Comment: Speci men Type: VENOUS BLOOD SPECIMENOrdering Facility: [facility] Address: [address] [place] [address] Performed By: #### 2 4344-4 ####[facility] [id number] [place] [address] [place] Calcium.ionized adjusted to pH 7.4 (BldA) [Moles/Vol] 1.23 mmol/L Normal 1.08-1.30 [facility] Comment on above: Order Comment: Speci men Type: VENOUS BLOOD SPECIMENOrdering Facility: [facility] Address: [address] [place] [address] Performed By: #### 2 4344-4 ####[facility] [id number] [place] [address] [place] Carboxyhemoglobin (BldV) [Mass fraction] 1.0 % Normal 0.0-2.0 [facility] Comment on above: Order Comment: Speci men Type: VENOUS BLOOD SPECIMENOrdering Facility: [facility] Address: [address] [place] [id number] Result Comment: Carb oxyhemoglobin Reference Range for Smokers: 2.0-8.0% Performed By: #### 2 4344-4 ####[facility] [id number] [place] [address] [place] CO2 (BldV) [Partial pressure] 47 mm[Hg] Normal 42-55 [facility] Comment on above: Order Comment: Speci men Type: VENOUS BLOOD SPECIMENOrdering Facility: [facility] Address: [address] [place] [address] Performed By: #### 2 4344-4 ####[facility] [id number] [place] [address] [place] CO2 [Moles/Vol] 26 mmol/L Normal 25-29 [facility] Comment on above: Order Comment: Speci men Type: VENOUS BLOOD SPECIMENOrdering Facility: [facility] Address: [address] [place] [address] Performed By: #### 2 4344-4 ####[facility] [id number] [place] [address] [place] CO2 adjusted to patient's actual temperature (BldV) [Partial pressure] 47 mmHg Normal 42-55 [facility] Comment on above: Order Comment: Speci men Type: VENOUS BLOOD SPECIMENOrdering Facility: [facility] Address: [address] [place] [address] Performed By: #### 2 4344-4 ####[facility] [id number] [place] [address] [place] Glucose [Mass/Vol] 109 mg/dL High 60-105 [facility] Comment on above: Order Comment: Speci men Type: VENOUS BLOOD SPECIMENOrdering Facility: [facility] Address: [address] [place] [id number] Performed By: #### 2 4344-4 ####[facility] [id number] [place] [address] [place] HCO3 (Bld) [Moles/Vol] 25 mmol/L Normal 24-28 [facility] Comment on above: Order Comment: Speci men Type: VENOUS BLOOD SPECIMENOrdering Facility: [facility] Address: [address] [place] [id number] Performed By: #### 2 4344-4 ####[facility] [id number] [place] [address] [place] Hematocrit (Bld) [Volume fraction] 44.3 % Normal 39.0-51.0 [facility] Comment on above: Order Comment: Speci men Type: VENOUS BLOOD SPECIMENOrdering Facility: [facility] Address: [address] [address] Performed By: #### 2 4344-4 ####[facility] [id number] [place] [address] [place] Hemoglobin (Bld) [Mass/Vol] 14.4 g/dL Normal 13.0-17.0 [facility] Comment on above: Order Comment: Speci men Type: VENOUS BLOOD SPECIMENOrdering Facility: [facility] Address: [address] [address] Performed By: #### 2 4344-4 ####[facility] [id number] [address] [place] Lactate [Moles/Vol] 2.1 mmol/L Normal 0.5-2.2 [facility] Comment on above: Order Comment: Speci men Type: VENOUS BLOOD SPECIMENOrdering Facility: [facility] Address: [address] Performed By: #### 2 4344-4 ####[facility] [id number] [address] [place] Methemoglobin (Bld) [Mass fraction] 0.8 % Normal 0.0-1.5 [facility] Comment on above: Order Comment: Speci men Type: VENOUS BLOOD SPECIMENOrdering Facility: [facility] Address: [address] Performed By: #### 2 4344-4 ####[facility] [id number] [place] [address] [place] O2 THERAPY Ventilator Normal [facility] Comment on above: Order Comment: Speci men Type: VENOUS BLOOD SPECIMENOrdering Facility: [facility] Address: [address] Performed By: #### 2 4344-4 ####[facility] [id number] [address] [place] Oxygen (BldV) [Partial pressure] 40 mm[Hg] Normal 35-45 [facility] Comment on above: Order Comment: Speci men Type: VENOUS BLOOD SPECIMENOrdering Facility: [facility] Address: [address] [place] [phone] Performed By: #### 2 4344-4 ####[facility] [id number] [place] [address] [place] Oxygen adjusted to patient's actual temperature (BldV) [Partial pressure] 39 mmHg Normal 35-45 [facility] Comment on above: Order Comment: Speci men Type: VENOUS BLOOD SPECIMENOrdering Facility: [facility] Address: [address] [place] [id number] Performed By: #### 2 4344-4 ####[facility] [id number] [address] [place] Oxygen saturation in Venous blood 70 % Normal 60-85 [facility] Comment on above: Order Comment: Speci men Type: VENOUS BLOOD SPECIMENOrdering Facility: [facility] Address: [address] [place] [address] Performed By: #### 2 4344-4 ####[facility] [id number] [place] [address] [place] Oxyhemoglobin (BldV) [Mass fraction] 68 % Normal 60-85 [facility] Comment on above: Order Comment: Speci men Type: VENOUS BLOOD SPECIMENOrdering Facility: [facility] Address: [address] [place] [address] Performed By: #### 2 4344-4 ####[facility] [id number] [place] [address] [place] pH (BldV) 7.34 [pH] Normal 7.32-7.42 [facility] Comment on above: Order Comment: Speci men Type: VENOUS BLOOD SPECIMENOrdering Facility: [facility] Address: [address] [place] [address] Performed By: #### 2 4344-4 ####[facility] [id number] [place] [address] [place] pH adjusted to patient's actual temperature (BldV) 7.34 Normal 7.32-7.42 [facility] Comment on above: Order Comment: Speci men Type: VENOUS BLOOD SPECIMENOrdering Facility: [facility] Address: [address] [place] [address] Performed By: #### 2 4344-4 ####[facility] [id number] [place] [address] [place] Potassium [Moles/Vol] 4.2 mmol/L Normal 3.5-5.0 [facility] Comment on above: Order Comment: Speci men Type: VENOUS BLOOD SPECIMENOrdering Facility: [facility] Address: [address] [place] [address] Performed By: #### 2 4344-4 ####[facility] [id number] [place] [address] [place] Sodium [Moles/Vol] 139 mmol/L Normal 136-144 [facility] Comment on above: Order Comment: Speci men Type: VENOUS BLOOD SPECIMENOrdering Facility: [facility] Address: [address] Performed By: #### 2 4344-4 ####[facility] [id number] [place] [address] [place] BASE DEFICIT, VENOUS -2 mmol/L Normal -2-0 [facility] Comment on above: Order Comment: Speci men Type: VENOUS BLOOD SPECIMENOrdering Facility: [facility] Address: [address] [place] [address] Performed By: #### 2 4344-4 ####[facility] [id number] [place] [address] [place] Body temperature 96.98 [degF] Normal [facility] Comment on above: Order Comment: Speci men Type: VENOUS BLOOD SPECIMENOrdering Facility: [facility] Address: [address] Performed By: #### 2 4344-4 ####[facility] [id number] [place] [address] [place] Calcium.ionized (Bld) [Mass/Vol] 1.23 mmol/L Normal 1.08-1.30 [facility] Comment on above: Order Comment: Speci men Type: VENOUS BLOOD SPECIMENOrdering Facility: [facility] Address: [address] Performed By: #### 2 4344-4 ####[facility] [id number] [place] [address] [place] Calcium.ionized adjusted to pH 7.4 (BldA) [Moles/Vol] 1.19 mmol/L Normal 1.08-1.30 [facility] Comment on above: Order Comment: Speci men Type: VENOUS BLOOD SPECIMENOrdering Facility: [facility] Address: [address] [place] [address] Performed By: #### 2 4344-4 ####[facility] [id number] [place] [address] [place] Carboxyhemoglobin (BldV) [Mass fraction] 0.9 % Normal 0.0-2.0 [facility] Comment on above: Order Comment: Speci men Type: VENOUS BLOOD SPECIMENOrdering Facility: [facility] Address: [address] Performed By: #### 2 4344-4 ####[facility] [id number] [place] [address] [place] CO2 (BldV) [Partial pressure] 44 mm[Hg] Normal 42-55 [facility] Comment on above: Order Comment: Speci men Type: VENOUS BLOOD SPECIMENOrdering Facility: [facility] Address: [address] [place] [address] Performed By: #### 2 4344-4 ####[facility] [id number] [place] [address] [place] CO2 [Moles/Vol] 25 mmol/L Normal 25-29 [facility] Comment on above: Order Comment: Speci men Type: VENOUS BLOOD SPECIMENOrdering Facility: [facility] Address: [address] [place] [address] Performed By: #### 2 4344-4 ####[facility] [id number] [place] [address] [place] CO2 adjusted to patient's actual temperature (BldV) [Partial pressure] 42 mmHg Normal 42-55 [facility] Comment on above: Order Comment: Speci men Type: VENOUS BLOOD SPECIMENOrdering Facility: [facility] Address: [address] [place] [id number] Performed By: #### 2 4344-4 ####[facility] [id number] [place] [address] [place] Glucose [Mass/Vol] 114 mg/dL High 60-105 [facility] Comment on above: Order Comment: Speci men Type: VENOUS BLOOD SPECIMENOrdering Facility: [facility] Address: [address] [place] [id number] Performed By: #### 2 4344-4 ####[facility] [id number] [place] [address] [place] HCO3 (Bld) [Moles/Vol] 23 mmol/L Low 24-28 [facility] Comment on above: Order Comment: Speci men Type: VENOUS BLOOD SPECIMENOrdering Facility: [facility] Address: [address] [address] Performed By: #### 2 4344-4 ####[facility] [id number] [place] [address] [place] Hematocrit (Bld) [Volume fraction] 41.8 % Normal 39.0-51.0 [facility] Comment on above: Order Comment: Speci men Type: VENOUS BLOOD SPECIMENOrdering Facility: [facility] Address: [address] [address] Performed By: #### 2 4344-4 ####[facility] [id number] [place] [address] [place] Hemoglobin (Bld) [Mass/Vol] 13.6 g/dL Normal 13.0-17.0 [facility] Comment on above: Order Comment: Speci men Type: VENOUS BLOOD SPECIMENOrdering Facility: [facility] Address: [address] Performed By: #### 2 4344-4 ####[facility] [id number] [address] [place] Lactate [Moles/Vol] 2.3 mmol/L High 0.5-2.2 [facility] Comment on above: Order Comment: Speci men Type: VENOUS BLOOD SPECIMENOrdering Facility: [facility] Address: [address] Performed By: #### 2 4344-4 ####[facility] [id number] [place] [address] [place] Methemoglobin (Bld) [Mass fraction] 1.3 % Normal 0.0-1.5 [facility] Comment on above: Order Comment: Speci men Type: VENOUS BLOOD SPECIMENOrdering Facility: [facility] Address: [address] Performed By: #### 2 4344-4 ####[facility] [id number] [place] [id number] [place] O2 THERAPY Ventilator Normal [facility] Comment on above: Order Comment: Speci men Type: VENOUS BLOOD SPECIMENOrdering Facility: [facility] Address: [address] [place] [address] Performed By: #### 2 4344-4 ####[facility] [id number] [place] [address] [place] Oxygen (BldV) [Partial pressure] 43 mm[Hg] Normal 35-45 [facility] Comment on above: Order Comment: Speci men Type: VENOUS BLOOD SPECIMENOrdering Facility: [facility] Address: [address] [place] [address] Performed By: #### 2 4344-4 ####[facility] [id number] [address] [place] Oxygen adjusted to patient's actual temperature (BldV) [Partial pressure] 40 mmHg Normal 35-45 [facility] Comment on above: Order Comment: Speci men Type: VENOUS BLOOD SPECIMENOrdering Facility: [facility] Address: [address] [place] [id number] Performed By: #### 2 4344-4 ####[facility] [id number] [place] [id number] [place] Oxygen saturation in Venous blood 76 % Normal 60-85 [facility] Comment on above: Order Comment: Speci men Type: VENOUS BLOOD SPECIMENOrdering Facility: [facility] Address: [address] [place] [phone] Performed By: #### 2 4344-4 ####[facility] [id number] [place] [id number] [place] Oxyhemoglobin (BldV) [Mass fraction] 75 % Normal 60-85 [facility] Comment on above: Order Comment: Speci men Type: VENOUS BLOOD SPECIMENOrdering Facility: [facility] Address: [address] Performed By: #### 2 4344-4 ####[facility] [id number] [place] [address] [place] pH (BldV) 7.34 [pH] Normal 7.32-7.42 [facility] Comment on above: Order Comment: Speci men Type: VENOUS BLOOD SPECIMENOrdering Facility: [facility] Address: [address] Performed By: #### 2 4344-4 ####[facility] [id number] [place] [address] [place] pH adjusted to patient's actual temperature (BldV) 7.36 Normal 7.32-7.42 [facility] Comment on above: Order Comment: Speci men Type: VENOUS BLOOD SPECIMENOrdering Facility: [facility] Address: [address] Performed By: #### 2 4344-4 ####[facility] [id number] [place] [address] [place] Potassium [Moles/Vol] 3.9 mmol/L Normal 3.5-5.0 [facility] Comment on above: Order Comment: Speci men Type: VENOUS BLOOD SPECIMENOrdering Facility: [facility] Address: [address] Performed By: #### 2 4344-4 ####[facility] [id number] [place] [address] [place] Sodium [Moles/Vol] 140 mmol/L Normal 136-144 [facility] Comment on above: Order Comment: Speci men Type: VENOUS BLOOD SPECIMENOrdering Facility: [facility] Address: [address] Performed By: #### 2 4344-4 ####[facility] [id number] [place] [address] [place] Base excess Calc (BldV) [Moles/Vol] 1 mmol/L Normal 0-2 [facility] Comment on above: Order Comment: Speci men Type: VENOUS BLOOD SPECIMENOrdering Facility: [facility] Address: [address] Performed By: #### 2 4344-4 ####[facility] [id number] [place] [address] [place] Calcium.ionized (Bld) [Mass/Vol] 1.19 mmol/L Normal 1.08-1.30 [facility] Comment on above: Order Comment: Speci men Type: VENOUS BLOOD SPECIMENOrdering Facility: [facility] Address: [address] Performed By: #### 2 4344-4 ####[facility] [id number] [place] [address] [place] Calcium.ionized adjusted to pH 7.4 (BldA) [Moles/Vol] 1.15 mmol/L Normal 1.08-1.30 [facility] Comment on above: Order Comment: Speci men Type: VENOUS BLOOD SPECIMENOrdering Facility: [facility] Address: [address] Performed By: #### 2 4344-4 ####[facility] [id number] [place] [address] [place] Carboxyhemoglobin (BldV) [Mass fraction] 1.0 % Normal 0.0-2.0 [facility] Comment on above: Order Comment: Speci men Type: VENOUS BLOOD SPECIMENOrdering Facility: [facility] Address: [address] Result Comment: Carb oxyhemoglobin Reference Range for Smokers: 2.0-8.0% Performed By: #### 2 4344-4 ####[facility] [id number] [place] [address] [place] CO2 (BldV) [Partial pressure] 50 mm[Hg] Normal 42-55 [facility] Comment on above: Order Comment: Speci men Type: VENOUS BLOOD SPECIMENOrdering Facility: [facility] Address: [address] [address] Performed By: #### 2 4344-4 ####[facility] [id number] [place] [address] [place] CO2 [Moles/Vol] 28 mmol/L Normal 25-29 [facility] Comment on above: Order Comment: Speci men Type: VENOUS BLOOD SPECIMENOrdering Facility: [facility] Address: [address] [address] Performed By: #### 2 4344-4 ####[facility] [id number] [place] [address] [place] CO2 adjusted to patient's actual temperature (BldV) [Partial pressure] 50 mmHg Normal 42-55 [facility] Comment on above: Order Comment: Speci men Type: VENOUS BLOOD SPECIMENOrdering Facility: [facility] Address: [address] Performed By: #### 2 4344-4 ####[facility] [id number] [place] [address] [place] Glucose [Mass/Vol] 154 mg/dL High 60-105 [facility] Comment on above: Order Comment: Speci men Type: VENOUS BLOOD SPECIMENOrdering Facility: [facility] Address: [address] Performed By: #### 2 4344-4 ####[facility] [id number] [place] [address] [place] HCO3 (Bld) [Moles/Vol] 26 mmol/L Normal 24-28 [facility] Comment on above: Order Comment: Speci men Type: VENOUS BLOOD SPECIMENOrdering Facility: [facility] Address: [address] [address] Performed By: #### 2 4344-4 ####[facility] [id number] [place] [address] [place] Methemoglobin (Bld) [Mass fraction] 1.0 % Normal 0.0-1.5 [facility] Comment on above: Order Comment: Speci men Type: VENOUS BLOOD SPECIMENOrdering Facility: [facility] Address: [address] [address] Performed By: #### 2 4344-4 ####[facility] [id number] [place] [address] [place] Oxygen (BldV) [Partial pressure] 41 mm[Hg] Normal 35-45 [facility] Comment on above: Order Comment: Speci men Type: VENOUS BLOOD SPECIMENOrdering Facility: [facility] Address: [address] Performed By: #### 2 4344-4 ####[facility] [id number] [place] [address] [place] Oxygen adjusted to patient's actual temperature (BldV) [Partial pressure] 41 mmHg Normal 35-45 [facility] Comment on above: Order Comment: Speci men Type: VENOUS BLOOD SPECIMENOrdering Facility: [facility] Address: [address] Performed By: #### 2 4344-4 ####[facility] [id number] [place] [address] [place] Oxygen saturation in Venous blood 74 % Normal 60-85 [facility] Comment on above: Order Comment: Speci men Type: VENOUS BLOOD SPECIMENOrdering Facility: [facility] Address: [address] [place] [address] Performed By: #### 2 4344-4 ####[facility] [id number] [place] [address] [place] Oxyhemoglobin (BldV) [Mass fraction] 72 % Normal 60-85 [facility] Comment on above: Order Comment: Speci men Type: VENOUS BLOOD SPECIMENOrdering Facility: [facility] Address: [address] Performed By: #### 2 4344-4 ####[facility] [id number] [place] [address] [place] pH (BldV) 7.34 [pH] Normal 7.32-7.42 [facility] Comment on above: Order Comment: Speci men Type: VENOUS BLOOD SPECIMENOrdering Facility: [facility] Address: [address] Performed By: #### 2 4344-4 ####[facility] [id number] [place] [address] [place] pH adjusted to patient's actual temperature (BldV) 7.34 Normal 7.32-7.42 [facility] Comment on above: Order Comment: Speci men Type: VENOUS BLOOD SPECIMENOrdering Facility: [facility] Address: [address] Performed By: #### 2 4344-4 ####[facility] [id number] [place] [address] [place] Potassium [Moles/Vol] 4.5 mmol/L Normal 3.5-5.0 [facility] Comment on above: Order Comment: Speci men Type: VENOUS BLOOD SPECIMENOrdering Facility: [facility] Address: [address] Performed By: #### 2 4344-4 ####[facility] [id number] [place] [address] [place] Sodium [Moles/Vol] 140 mmol/L Normal 136-144 [facility] Comment on above: Order Comment: Speci men Type: VENOUS BLOOD SPECIMENOrdering Facility: [facility] Address: [address] [place] [address] Performed By: #### 2 4344-4 ####[facility] [id number] [place] [address] [place] INTRAOPERATIVE ECHO PREon INTRAOPERATIVE ECHO PRE Normal [facility] OPERATIVE NOon 07-19-2022 OPERATIVE NO Normal [facility] Platelets Auto (Bld) [#/Vol] on 07-19-2022 Platelets (Bld) [#/Vol] 198 10*3/uL Normal 150-400 [facility] Comment on above: Order Comment: Speci men Type: BLOOD SPECIMENOrdering Facility: [facility] Address: [address] [place] [address] Performed By: #### 7 77-3 ####[facility] [id number] [address] [place] STAPH AUREUS PCRon 2 S. aureus and MRSA panel CHAITANYA+probe (Nose) Abnormal Negative [facility] Comment on above: Order Comment: Speci men Type: SWAB OF INTERNAL NOSEOrdering Facility: [facility] Address: [address] [place] [address] Result Comment: Posi tive for Staphylococcus aureus by PCR.Negative for MRSA by PCR Performed By: #### S APCR ####[facility] [id number] [place] [address] [place] SURGICAL PATHOLOGYon 022 CASE REPORT Normal [facility] Comment on above: Order Comment: Speci men Type: TISSUE SPECIMENOrdering Facility: [facility] Address: [address] [place] [address] Result Comment: Surg ical Pathology Report Case: [id number] Provider: Andreia Bates MD Collected: 07/19/2022 09:35 AMOrdering Location: Admitting Received: 07/19/2022 11:20 AMPathologist: ROSALIA Holderpecimen: AORTIC VALVE Performed By: #### S ####[facility] [id number] [address] CLINICAL HISTORY Normal [facility] Comment on above: Order Comment: Speci men Type: TISSUE SPECIMENOrdering Facility: [facility] Address: [address] [place] [address] Result Comment: Pre- op diagnosis: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 A ortic valve, excision:- Severe calcification and severe fibrosis (gross examination only).ERR/WE/kr 07/20/2022 Performed By: #### S ####[facility] [id number] [address] FINAL PERFORMING LAB Normal [facility] Comment on above: Order Comment: Speci men Type: TISSUE SPECIMENOrdering Facility: [facility] Address: [address] [address] Result Comment: Diag nostic interpretation performed at [facility], [address] [address] CLIA# [id number] Director: Mann Naik M.D. Performed By: #### S ####[facility] [id number] [address] [place] GROSS DESCRIPTION A. 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 There is no evidence of commissural fusion. A median raphe is identified. There is severe calcification. There is severe fibrosis. Lambl's excrescences are identified. Fenestrations are not identified. No vegetations or perforations are present. No sections are submitted. The specimen is reviewed by Dr. Cameron.JUSTINE/nima 07/20/2022Gross examination performed at [facility], [address] [address] CLIA# [id number] Performed By: #### S ####[facility] [id number] [place] [address] [place] THERAPY NTon 07-19-2022 THERAPY NT Normal [facility] THROMBOGRAPH HEPARINASE PANE Papa 07-19-2022 Clot angle after addition of heparinase TEG (Bld) [Angle] Normal [facility] Comment on above: Order Comment: Speci men Type: BLOOD SPECIMENOrdering Facility: [facility] Address: [address] [place] [address] Result Comment: Not calculated Performed By: #### T EGHPP ####[facility] [id number] [address] [place] Clot Lysis 30 Min post maximum clot amplitude TEG (Bld) [Length fraction] Normal [facility] Comment on above: Order Comment: Speci men Type: BLOOD SPECIMENOrdering Facility: [facility] Address: [address] [place] [address] Result Comment: Not calculated Performed By: #### T EGHPP ####[facility] [id number] [facility] [place] [address] [place] Clotting time after addition of heparinase TEG (Bld) Normal [facility] Comment on above: Order Comment: Speci men Type: BLOOD SPECIMENOrdering Facility: [facility] Address: [address] [place] [address] Result Comment: No c lot formed Performed By: #### T EGHPP ####[facility] [id number] [place] [address] [place] Coagulation index TEG Qn (Bld) Normal [facility] Comment on above: Order Comment: Speci men Type: BLOOD SPECIMENOrdering Facility: [facility] Address: [address] [place] [address] Result Comment: Not calculated Performed By: #### T EGHPP ####[facility] [id number] [place] [address] [place] Maximum clot firmness after addition of heparinase TEG (Bld) [Length] Normal [facility] Comment on above: Order Comment: Speci men Type: BLOOD SPECIMENOrdering Facility: [facility] Address: [address] [place] [address] Result Comment: Not calculated Performed By: #### T EGHPP ####[facility] [id number] [place] [address] [place] XR CHEST 1V FRONTAL PORTon 1 2 XR CHEST 1V FRONTAL PORT Normal [facility] CNCNPATEDon 07-12-2022 CNCNPATED Normal [facility] CNOVon 07-12-2022 CNOV Normal [facility] STAPH AUREUS PCRon S. aureus and MRSA panel CHAITANYA+probe (Nose) Abnormal Negative [facility] Comment on above: Order Comment: Speci men Type: SWAB OF INTERNAL NOSEOrdering Facility: [facility] Address: [address] [address] Result Comment: Posi tive for Staphylococcus aureus by PCR.Negative for MRSA by PCR Performed By: #### S APCR ####[facility] [id number] [address] [place] Bilirub Conj SerPl-mCncon Bilirubin.conjugated [Mass/Vol] mg/dL Normal <0.2 [facility] Comment on above: Order Comment: Speci men Type: BLOOD SPECIMENOrdering Facility: [facility] Address: [address] [place] [address] Performed By: #### 2 532-0, 34906-6, 13308-4 ####[facility] [id number] [address] [place] CBC W Auto Differential pane l (Bld)on 07-11-2022 Basophils (Bld) [#/Vol] 0.06 10*3/uL Normal <0.11 [facility] Comment on above: Order Comment: Speci men Type: BLOOD SPECIMENOrdering Facility: [facility] Address: [address] [place] [address] Performed By: #### 5 7021-8 ####[facility] [id number] [address] [place] Basophils/100 WBC (Bld) 0.8 % Normal [facility] Comment on above: Order Comment: Speci men Type: BLOOD SPECIMENOrdering Facility: [facility] Address: [address] [address] Performed By: #### 5 7021-8 ####[facility] [id number] [address] [place] Differential cell count method Nom (Bld) Auto Normal [facility] Comment on above: Order Comment: Speci men Type: BLOOD SPECIMENOrdering Facility: [facility] Address: [address] [place] [address] Performed By: #### 5 7021-8 ####[facility] [id number] [place] [address] [place] Eosinophils (Bld) [#/Vol] 0.29 10*3/uL Normal <0.46 [facility] Comment on above: Order Comment: Speci men Type: BLOOD SPECIMENOrdering Facility: [facility] Address: [address] Performed By: #### 5 7021-8 ####[facility] [id number] [place] [address] [place] Eosinophils/100 WBC (Bld) 3.8 % Normal [facility] Comment on above: Order Comment: Speci men Type: BLOOD SPECIMENOrdering Facility: [facility] Address: [address] [place] [address] Performed By: #### 5 7021-8 ####[facility] [id number] [place] [address] [place] Erythrocyte distribution width (RBC) [Ratio] 12.4 % Normal 11.5-15.0 [facility] Comment on above: Order Comment: Speci men Type: BLOOD SPECIMENOrdering Facility: [facility] Address: [address] [place] [address] Performed By: #### 5 7021-8 ####[facility] [id number] [place] [address] [place] Hematocrit (Bld) [Volume fraction] 44.5 % Normal 39.0-51.0 [facility] Comment on above: Order Comment: Speci men Type: BLOOD SPECIMENOrdering Facility: [facility] Address: [address] Performed By: #### 5 7021-8 ####[facility] [id number] [place] [address] [place] Hemoglobin (Bld) [Mass/Vol] 15.2 g/dL Normal 13.0-17.0 [facility] Comment on above: Order Comment: Speci men Type: BLOOD SPECIMENOrdering Facility: [facility] Address: [address] [place] [address] Performed By: #### 5 7021-8 ####[facility] [id number] [place] [address] [place] Immature granulocytes (Bld) [#/Vol] 0.03 10*3/uL Normal <0.10 [facility] Comment on above: Order Comment: Speci men Type: BLOOD SPECIMENOrdering Facility: [facility] Address: [address] [place] [address] Performed By: #### 5 7021-8 ####[facility] [id number] [address] [place] Immature granulocytes/100 WBC (Bld) 0.4 % Normal [facility] Comment on above: Order Comment: Speci men Type: BLOOD SPECIMENOrdering Facility: [facility] Address: [address] [place] [address] Performed By: #### 5 7021-8 ####[facility] [id number] [place] [address] [place] Lymphocytes (Bld) [#/Vol] 2.34 10*3/uL Normal 1.00-4.00 [facility] Comment on above: Order Comment: Speci men Type: BLOOD SPECIMENOrdering Facility: [facility] Address: [address] [place] [address] Performed By: #### 5 7021-8 ####[facility] [id number] [place] [address] [place] Lymphocytes/100 WBC (Bld) 30.4 % Normal [facility] Comment on above: Order Comment: Speci men Type: BLOOD SPECIMENOrdering Facility: [facility] Address: [address] Performed By: #### 5 7021-8 ####[facility] [id number] [address] MCH (RBC) [Entitic mass] 29.0 pg Normal 26.0-34.0 [facility] Comment on above: Order Comment: Speci men Type: BLOOD SPECIMENOrdering Facility: [facility] Address: [address] Performed By: #### 5 7021-8 ####[facility] [id number] [address] [place] MCHC (RBC) [Mass/Vol] 34.2 g/dL Normal 30.5-36.0 [facility] Comment on above: Order Comment: Speci men Type: BLOOD SPECIMENOrdering Facility: [facility] Address: [address] [place] [address] Performed By: #### 5 7021-8 ####[facility] [id number] [address] [place] MCV (RBC) [Entitic vol] 84.8 fL Normal 80.0-100.0 [facility] Comment on above: Order Comment: Speci men Type: BLOOD SPECIMENOrdering Facility: [facility] Address: [address] Performed By: #### 5 7021-8 ####[facility] [id number] [place] [address] [place] Monocytes (Bld) [#/Vol] 0.58 10*3/uL Normal <0.87 [facility] Comment on above: Order Comment: Speci men Type: BLOOD SPECIMENOrdering Facility: [facility] Address: [address] [place] [address] Performed By: #### 5 7021-8 ####[facility] [id number] [place] [address] [place] Monocytes/100 WBC (Bld) 7.5 % Normal [facility] Comment on above: Order Comment: Speci men Type: BLOOD SPECIMENOrdering Facility: [facility] Address: [address] [place] [address] Performed By: #### 5 7021-8 ####[facility] [id number] [place] [address] [place] Neutrophils (Bld) [#/Vol] 4.39 10*3/uL Normal 1.45-7.50 [facility] Comment on above: Order Comment: Speci men Type: BLOOD SPECIMENOrdering Facility: [facility] Address: [address] [place] [address] Performed By: #### 5 7021-8 ####[facility] [id number] [place] [address] [place] Neutrophils/100 WBC (Bld) 57.1 % Normal [facility] Comment on above: Order Comment: Speci men Type: BLOOD SPECIMENOrdering Facility: [facility] Address: [address] [place] [address] Performed By: #### 5 7021-8 ####[facility] [id number] [place] [address] [place] Nucleated RBC (Bld) [#/Vol] 10*3/uL Normal <0.01 [facility] Comment on above: Order Comment: Speci men Type: BLOOD SPECIMENOrdering Facility: [facility] Address: [address] [place] [address] Performed By: #### 5 7021-8 ####[facility] [id number] [place] [address] [place] Nucleated RBC/100 WBC (Bld) [Ratio] 0.0 /100 WBC Normal [facility] Comment on above: Order Comment: Speci men Type: BLOOD SPECIMENOrdering Facility: [facility] Address: [address] [place] [address] Performed By: #### 5 7021-8 ####[facility] [id number] [place] [address] [place] Platelet mean volume (Bld) [Entitic vol] 10.2 fL Normal 9.0-12.7 [facility] Comment on above: Order Comment: Speci men Type: BLOOD SPECIMENOrdering Facility: [facility] Address: [address] [place] [address] Performed By: #### 5 7021-8 ####[facility] [id number] [place] [address] [place] Platelets (Bld) [#/Vol] 244 10*3/uL Normal 150-400 [facility] Comment on above: Order Comment: Speci men Type: BLOOD SPECIMENOrdering Facility: [facility] Address: [address] [place] [address] Performed By: #### 5 7021-8 ####[facility] [id number] [place] [address] [place] RBC (Bld) [#/Vol] 5.25 10*6/uL Normal 4.20-6.00 [facility] Comment on above: Order Comment: Speci men Type: BLOOD SPECIMENOrdering Facility: [facility] Address: [address] [place] [address] Performed By: #### 5 7021-8 ####[facility] [id number] [place] [address] [place] WBC (Bld) [#/Vol] 7.69 10*3/uL Normal 3.70-11.00 [facility] Comment on above: Order Comment: Speci men Type: BLOOD SPECIMENOrdering Facility: [facility] Address: [address] [place] [address] Performed By: #### 5 7021-8 ####[facility] [id number] [place] [address] [place] CNOVon 07-11-2022 CNOV Normal [facility] CONFIRM BLOOD TYPEon 022 ABO O Normal [facility] Comment on above: Order Comment: Speci men Type: BLOOD SPECIMENOrdering Facility: [facility] Address: [address] [place] [address] Performed By: #### C ONABO ####[facility] B[facility] BANKIA [id number] [place] [address] [place] Rh Nom (Bld) Negative Normal [facility] Comment on above: Order Comment: Speci men Type: BLOOD SPECIMENOrdering Facility: [facility] Address: [address] [place] [id number] Performed By: #### C ONABO ####[facility] BLOOD BANKIA [id number] [place] [address] [place] CTA CHEST (GATED) W IVCONon 07-11-2022 CTA CHEST (GATED) W IVCON Normal [facility] Comprehensive metabolic 2000 panelon 07-11-2022 Albumin [Mass/Vol] 4.6 g/dL Normal 3.9-4.9 [facility] Comment on above: Order Comment: Speci men Type: BLOOD SPECIMENOrdering Facility: [facility] Address: [address] [place] [id number] Performed By: #### 2 532-0, 97512-8, 61454-7 ####[facility] [id number] [place] [address] [place] ALP [Catalytic activity/Vol] 65 U/L Normal 38-113 [facility] Comment on above: Order Comment: Speci men Type: BLOOD SPECIMENOrdering Facility: [facility] Address: [address] [place], [place] [address] Performed By: #### 2 532-0, 19041-4, 81236-8 ####[facility] [id number] [address] [place] ALT [Catalytic activity/Vol] 34 U/L Normal 10-54 [facility] Comment on above: Order Comment: Speci men Type: BLOOD SPECIMENOrdering Facility: [facility] Address: [address] Performed By: #### 2 532-0, 25430-6, 20924-2 ####[facility] [id number] [place] [address] [place] Anion gap [Moles/Vol] 10 mmol/L Normal 9-18 [facility] Comment on above: Order Comment: Speci men Type: BLOOD SPECIMENOrdering Facility: [facility] Address: [address] [place] [address] Performed By: #### 2 532-0, 27584-9, 54694-9 ####[facility] [id number] [address] [place] AST [Catalytic activity/Vol] 22 U/L Normal 14-40 [facility] Comment on above: Order Comment: Speci men Type: BLOOD SPECIMENOrdering Facility: [facility] Address: [address] Performed By: #### 2 532-0, 95338-1, 93345-3 ####[facility] [id number] [place] [id number] [place] Bilirubin [Mass/Vol] 0.4 mg/dL Normal 0.2-1.3 [facility] Comment on above: Order Comment: Speci men Type: BLOOD SPECIMENOrdering Facility: [facility] Address: [address] Performed By: #### 2 532-0, 21312-8, ####[facility] [id number] [place] [address] [place] Calcium [Mass/Vol] 9.9 mg/dL Normal 8.5-10.2 [facility] Comment on above: Order Comment: Speci men Type: BLOOD SPECIMENOrdering Facility: [facility] Address: [address] [place], [place] [id number] Performed By: #### 2 532-0, 48389-9, ####[facility] [id number] [place] [address] [place] Chloride [Moles/Vol] 105 mmol/L Normal 97-105 [facility] Comment on above: Order Comment: Speci men Type: BLOOD SPECIMENOrdering Facility: [facility] Address: [address] [place] [address] Performed By: #### 2 532-0, 17589-2, ####[facility] [id number] [place] [address] [place] CO2 [Moles/Vol] 27 mmol/L Normal 22-30 [facility] Comment on above: Order Comment: Speci men Type: BLOOD SPECIMENOrdering Facility: [facility] Address: [address] [place] [phone] Performed By: #### 2 532-0, 77451-6, ####[facility] [id number] [place] [address] [place] Creatinine [Mass/Vol] 0.86 mg/dL Normal 0.73-1.22 [facility] Comment on above: Order Comment: Speci men Type: BLOOD SPECIMENOrdering Facility: [facility] Address: [address] [place] [phone] Performed By: #### 2 532-0, 06178-3, 05166-1 ####[facility] [id number] [place] [address] [place] ESTIMATED GLOMERULAR FILTRATION RATE 107 mL/min/1.73m??? Normal >=60 [facility] Comment on above: Order Comment: Noah brayan Type: BLOOD SPECIMENOrdering Facility: [facility] Address: [address] [place] [address] Result Comment: Lucina mated Glomerular Filtration Rate (eGFR) is calculated using the 2020 CKD-EPI creatinine equation. This equation utilizes serum creatinine, sex, and age as parameters. The creatinine assay has traceable calibration to isotope dilution-mass spectrometry. Refer to KDIGO guidelines for clinical interpretation. In patients with unstable renal function, e.g. those with acute kidney injury, the eGFR may not accurately reflect actual GFR. Performed By: #### 2 532-0, 98371-9, 05382-5 ####[facility] [id number] [place] [address] [place] Glucose [Mass/Vol] 102 mg/dL High 74-99 [facility] Comment on above: Order Comment: Noah schmidt Type: BLOOD SPECIMENOrdering Facility: [facility] Address: [address] [place] [address] Result Comment: The [place] [employer] (ADA) provides guidance for cutoff values for fasting glucose and random glucose. The ADA defines fasting as no caloric intake for at least 8 hours. Fasting plasma glucose results between 100 to 125 mg/dL indicate increased risk for diabetes (prediabetes).Fasting plasma glucose results greater than or equal to 126 mg/dL meet the criteria for diagnosis of diabetes. In the absence of unequivocal hyperglycemia, results should be confirmed by repeat testing. In a patient with classic symptoms of hyperglycemia or hyperglycemic crisis, random plasma glucose results greater than or equal to 200 mg/dL meet the criteria for diagnosis of diabetes.Reference: Standards of Medical Care in Diabetes 2016, [place] [employer]. Diabetes Care. 2016.39(Suppl 1). Performed By: #### 2 532-0, 85939-6, 14607-4 ####[facility] [id number] [place] [id number] [place] Potassium [Moles/Vol] 5.1 mmol/L Normal 3.7-5.1 [facility] Comment on above: Order Comment: Speci men Type: BLOOD SPECIMENOrdering Facility: [facility] Address: [address] [place] [phone] Performed By: #### 2 532-0, 75913-5, 15060-2 ####[facility] [id number] [place] [address] [place] Protein [Mass/Vol] 7.3 g/dL Normal 6.3-8.0 [facility] Comment on above: Order Comment: Speci men Type: BLOOD SPECIMENOrdering Facility: [facility] Address: [address] [place] [address] Performed By: #### 2 532-0, 72237-8, 24730-8 ####[facility] [id number] [place] [address] [place] Sodium [Moles/Vol] 142 mmol/L Normal 136-144 [facility] Comment on above: Order Comment: Speci men Type: BLOOD SPECIMENOrdering Facility: [facility] Address: [address] [place] [phone] Performed By: #### 2 532-0, 71639-1, 74782-1 ####[facility] [id number] [place] [address] [place] Urea nitrogen [Mass/Vol] 15 mg/dL Normal 9-24 [facility] Comment on above: Order Comment: Speci men Type: BLOOD SPECIMENOrdering Facility: [facility] Address: [address] [place] [phone] Performed By: #### 2 532-0, 73885-1, 25766-4 ####[facility] [id number] [place] [id number] [place] ECG COMPLETEon 07-11-2022 ECG COMPLETE Normal [facility] LDH SerPl-cCncon 07-11-2022 LDH [Catalytic activity/Vol] 194 U/L Normal 135-225 [facility] Comment on above: Order Comment: Speci men Type: BLOOD SPECIMENOrdering Facility: [facility] Address: [address] [place] [address] Performed By: #### 2 532-0, 52257-9, 86578-7 ####[facility] [id number] [place] [address] [place] PT panel Coag (PPP)on 2021 INR Coag (PPP) [Relative time] 1.0 {INR} Normal 0.9-1.3 [facility] Comment on above: Order Comment: Angiei brayan Type: BLOOD SPECIMENOrdering Facility: [facility] Address: [address] [place] [address] Result Comment: Zofia min K Antagonist (VKA) Therapeutic Range: INR 2 to 3 (Target INR of 2.5)Note: For patients treated with VKA drugs, such as warfarin, the [place] [employer] 2012 Guideline recommends a therapeutic INR range of 2 to 3 (target INR of 2.5). This recommendation includes high-risk patients with antiphospholipid syndrome with previous arterial or venous thromboembolism, current-generation mechanical or bioprosthetic aortic heart valve replacement.Note: Patients with mechanical aortic valve replacement and additional risk factors for thromboembolic events (atrial fibrillation, previous thromboembolism, LV dysfunction, hypercoagulable conditions) or an older generation mechanical AVR (i.e., ball in-Cage) or any mechanical MVR should have a INR therapeutic range of 2.5 to 3.5 (target INR of 3).Suzanne GH, et al. Chest 2012, 141:7S-47SNishimura RA, et al. JACC 2017, 70: 252-289 Performed By: #### 3 4528-0, 07412-1 ####[facility] [id number] [place] [address] [place] PT Coag (PPP) [Time] 10.3 s Normal 9.7-13.0 [facility] Comment on above: Order Comment: Speci men Type: BLOOD SPECIMENOrdering Facility: [facility] Address: [address] [place] [address] Performed By: #### 3 4528-0, 86616-9 ####[facility] [id number] [address] OF [facility] TYPE AND SCREEN,30 DAYon ABO O Normal [facility] Comment on above: Order Comment: Speci men Type: BLOOD SPECIMENOrdering Facility: [facility] Address: [address] [place] [place] [address] Performed By: #### T SCR30 ####[facility] BLO[facility] BANKCLIA [id number] [address] [place] HISTORICAL AB SCR STATUS Negative Normal [facility] Comment on above: Order Comment: Speci men Type: BLOOD SPECIMENOrdering Facility: [facility] Address: [address] [place] [address] Performed By: #### T SCR30 ####[facility] BLOOD BANKCLIA [id number] [address] [place] Rh Nom (Bld) Negative Normal [facility] Comment on above: Order Comment: Speci men Type: BLOOD SPECIMENOrdering Facility: [facility] Address: [address] [place] [place] [address] Performed By: #### T SCR30 ####[facility] BLOOD BANKCLIA [id number] [address] [place] URINALYSIS, DIPSTICK ONLYon 07-11-2022 Bilirubin Ql (U) Negative Normal Negative [facility] Comment on above: Order Comment: Speci men Type: URINE SPECIMENOrdering Facility: [facility] Address: [address] [place] [address] Performed By: #### U A ####[facility] [id number] [place] [address] [place] Clarity (Unsp spec) Clear Normal Clear D[facility] Comment on above: Order Comment: Speci men Type: URINE SPECIMENOrdering Facility: [facility] Address: [address] [place] [place] [address] Performed By: #### U A ####[facility] [id number] [place] [address] [place] Color (U) Light Yellow Normal Yellow [facility] Comment on above: Order Comment: Speci men Type: URINE SPECIMENOrdering Facility: [facility] Address: [address] [place] [address] Performed By: #### U A ####[facility] [id number] [place] [address] [place] Glucose Test strip (U) [Mass/Vol] Negative Normal Trace, Negative [facility] Comment on above: Order Comment: Speci men Type: URINE SPECIMENOrdering Facility: [facility] Address: [address] [place] [address] Performed By: #### U A ####[facility] [id number] [place] [address] [place] Hemoglobin Ql (U) Negative Normal Negative, Trace [facility] Comment on above: Order Comment: Speci men Type: URINE SPECIMENOrdering Facility: [facility] Address: [address] Performed By: #### U A ####[facility] [id number] [place] [address] [place] Ketones Ql (U) Negative Normal Trace, Negative [facility] Comment on above: Order Comment: Speci men Type: URINE SPECIMENOrdering Facility: [facility] Address: [address] [place] [address] Performed By: #### U A ####[facility] [id number] [address] [place] [facility] Leukocyte esterase Test strip Ql (U) Negative Normal Negative, 25 Kirt/mL [facility] Comment on above: Order Comment: Speci men Type: URINE SPECIMENOrdering Facility: [facility] Address: [address] [place] [place] [address] Performed By: #### U A ####[facility] [id number] [place] [address] [place] Nitrite Ql (U) Negative Normal Negative [facility] Comment on above: Order Comment: Speci men Type: URINE SPECIMENOrdering Facility: [facility] Address: [address] [place] [address] Performed By: #### U A ####[facility] [id number] [place] [address] [place] pH (U) 6.0 [pH] Normal 5.0-8.0 [facility] Comment on above: Order Comment: Speci men Type: URINE SPECIMENOrdering Facility: [facility] Address: [address] [place] [address] Performed By: #### U A ####[facility] [id number] [address] [place] Protein (U) [Mass/Vol] Negative Normal Trace , Negative [facility] Comment on above: Order Comment: Speci men Type: URINE SPECIMENOrdering Facility: [facility] Address: [address] [place] [address] Performed By: #### U A ####[facility] [id number] [place] [address] [place] Specific gravity (U) [Rel density] 1.023 Normal 1.005-1.030 [facility] Comment on above: Order Comment: Speci men Type: URINE SPECIMENOrdering Facility: [facility] Address: [address] [place] [address] Performed By: #### U A ####[facility] [id number] [place] [address] [place] Urobilinogen Ql (U) Negative Normal Negative [facility] Comment on above: Order Comment: Speci men Type: URINE SPECIMENOrdering Facility: [facility] Address: [address] [place] [address] Performed By: #### U A ####[facility] [id number] [place] [address] [place] aPTT PPPon 07-11-2022 aPTT Coag (PPP) [Time] 26.9 s Normal 23.0-32.4 [facility] Comment on above: Order Comment: Speci men Type: BLOOD SPECIMENOrdering Facility: [facility] Address: [address] [place] [address] Performed By: #### 3 4528-0, 93274-8 ####[facility] [id number] [place] [address] [place] [facility] No Panel Informationon 07-05 Influenza Types A,B Rapid (Clinic) Negative [facility] POC SARS CoV-2 Antigen Negative [facility] 07-01-2022 CNPN Normal [facility] COVID-19 virus antigen assay Ordered By: Dr. Hayes on 06-28-2022 SARS-CoV-2 (COVID-19) Ag IA.rapid Ql (Resp) [facility] Absolute lymphocyte countOrd ered By: Dr. Hayes on 06-10-2022 Lymphocytes Auto (Unsp spec) [#/Vol] 1.98 10*3/uL 0.83-4.51 [facility] Basophil percentageOrdered B y: Dr. Hayes on 06-10-2022 Basophils/100 WBC (Bld) 0.6 % 0-1 [facility] Chloride [Moles/Vol] 107 mmol/L 98-107 [facility] Eosinophils/100 WBC (Bld) 4.6 % 0-5 [facility] Glucose [Mass/Vol] 94 mg/dL 74-106 [facility] Neutrophils (Bld) [#/Vol] 3.8 10*3/uL 2.0-7.7 [facility] Neutrophils/100 WBC (Bld) 55.3 % 47-70 [facility] Potassium [Moles/Vol] 4.2 mmol/L 3.5-5.1 [facility] Sodium [Moles/Vol] 142 mmol/L 136-145 [facility] WBC (Bld) [#/Vol] 6.9 10*3/uL 4.4-11.0 [facility] Blood erythrocytes count (nu mber/volume)Ordered By: Dr. Hayes on 06-10-2022 RBC (Bld) [#/Vol] 5.36 10*6/uL 4.6-6.2 [facility] Blood hemoglobin measurement (mass/volume)Ordered By: Dr. Hayes on 06-10-2022 Hemoglobin (Bld) [Mass/Vol] 15.4 g/dL 13.0-16.5 [facility] Blood lymphocytes/100 leukoc ytesOrdered By: Dr. Hayes on 06-10-2022 Lymphocytes/100 WBC (Bld) 28.6 % 19-41 [facility] Blood monocytes/100 leukocyt esOrdered By: Dr. Hayes on 06-10-2022 Monocytes/100 WBC (Bld) 10.8 % 0-10 [facility] Blood platelet mean volumeOr dered By: Dr. Hayes on 06-10-2022 Platelet mean volume (Bld) [Entitic vol] 9.9 fL 6.2-12.0 [facility] Determination of erythrocyte mean corpuscular volume (MCV)Ordered By: Dr. Hayes on 06-10-2022 MCV (RBC) [Entitic vol] 86.0 fL 80-94 [facility] Hematocrit Auto (Bld) [Volum e fraction]Ordered By: Dr. Hayes on 06-10-2022 Hematocrit (Bld) [Volume fraction] 46.1 % 40-54 [facility] INR in Blood by Coagulation assayOrdered By: Dr. Hayes on 06-10-2022 INR Coag (Bld) [Relative time] 1.0 {INR} [facility] Laboratory - Chemistry and C hemistry - challengeOrdered By: Dr. Hayes on 06-10-2022 CO2 [Moles/Vol] 30.0 mmol/L 21.0-32.0 [facility] Urea nitrogen/Creatinine [Mass ratio] 23.9 mg/mg 10-20 [facility] Laboratory - CoagulationOrde red By: Dr. Hayes on 06-10-2022 aPTT Coag (Bld) [Time] 29.1 s 24.1-36.2 [facility] PT Coag (PPP) [Time] 13.3 s 11.7-14.9 [facility] Laboratory - Hematology and Cell countsOrdered By: Dr. Hayes on 06-10-2022 Erythrocyte distribution width (RBC) [Entitic vol] 39.1 fL 35.1-43.9 [facility] Erythrocyte distribution width (RBC) [Ratio] 12.6 % 11.6-14.6 [facility] Immature granulocytes/100 WBC (Bld) 0.100 % 0.0-0.9 [facility] Comment on above: IG% - Immature Granu locytes (promyelocytes, myelocytes and metamyelocytes) > 1% indicates that a LEFT SHIFT is Present. MCH (RBC) [Entitic mass] 28.7 pg 27.0-32.0 [facility] Nucleated RBC/100 WBC (Bld) [Ratio] 0 % 0-5 [facility] MCHC Auto (RBC) [Mass/Vol]Or dered By: Dr. Hayes on 06-10-2022 MCHC (RBC) [Mass/Vol] 33.4 g/dL 32-36 [facility] No Panel InformationOrdered By: Dr. Hayes on 06-10-2022 Estimated GFR (MDRD) Amer 113 mL/min >60 [facility] Comment on above: GFR Calc Estimated GFR (MDRD) Non-Af Amer 93 mL/min >60 [facility] Comment on above: Non- GFR Calc Platelets bldOrdered By: Dr. Hayes on 06-10-2022 Platelets (Bld) [#/Vol] 251 10*3/uL 150-450 [facility] Serum or plasma calcium sampson urement (mass/volume)Ordered By: Dr. Hayes on 06-10-2022 Calcium [Mass/Vol] 9.6 mg/dL 8.5-10.1 [facility] Serum or plasma creatinine m easurement (mass/volume)Ordered By: Dr. Hayes on 06-10-2022 Creatinine [Mass/Vol] 0.92 mg/dL 0.70-1.30 [facility] Comment on above: The validity of the calculated GFR & GFRAA in patients over 70 years has not been determined. Clinical correlation is essential. Serum or plasma urea nitroge n measurement (mass/volume)Ordered By: Dr. Hayes on 06-10-2022 Urea nitrogen [Mass/Vol] 22 mg/dL 7-18 [facility] Thin prep Papanicolaou smear with manual screeningOrdered By: Dr. Hayes on 06-10-2022 Thin prep Papanicolaou smear with manual screening 5 5-15 [facility] CNPNon 11-18-2021 CNPN Telephone ([id number]) LEWIS GEORGE ([id number]) 1975 M Date Time Provider Department 11/18/21 RENALDO GRUBER AGG7 During your visit today, we recorded the following information about you: Xiomy Stoner Ma 11/18/2021 3:38 PM Signed 11/18/21 Left message with family for patient to call Dr. Gruber office to make an appointment. Xiomy Stoner Ma Allergies As of Date: 11/18/2021 (Not on File) Date Reviewed: Never Reviewed Reason for Visit: Appointment [186] Problem List As Of Date: 11/18/2021 (None) Encounter Status:Closed by XIOMY STONER MA on 01/27/22 [facility] COVID-19 virus antigen assay SARS-CoV-2 (COVID-19) Ag IA.rapid Ql (Resp) [facility] Work Phone: Vital Signs Date Time Vital Sign Value Performing Clinician Facility 12-31-2024 15:23-0400 Body height 175.[address] Rayshawn Cortes MD Work Phone: [facility] 12-31-2024 15:23-0400 Body mass index (BMI) [Ratio] 42.3 kg/m2 Dr. Rayshawn Cortes MD Work Phone: [facility] 12-31-2024 15:23-0400 Body weight 130.[address] Rayshawn Cortes MD Work Phone: [facility] 12-31-2024 15:23-0400 Diastolic blood pressure 82 mm[Hg] Dr. Rayshawn Farmer Work Phone: [facility] 12-31-2024 15:23-0400 Systolic blood pressure 136 mm[Hg] Dr. Rayshawn Cortes MD Work Phone: [facility] 10-18-2024 14:34-0400 Body mass index (BMI) [Ratio] 42.3 kg/m2 Dr. Rayshawn Cortes MD Work Phone: [facility] 10-18-2024 14:34-0400 Body weight 130.[address] Rayshawn Cortes MD Work Phone: [facility] 09-16-2023 08:20-0500 Body height 175.[address] Rayshawn Cortes Work Phone: [facility] 09-16-2023 08:20-0500 Body mass index (BMI) [Ratio] 40.1 kg/m2 Dr. Rayshawn Cortes Work Phone: [facility] 09-16-2023 08:20-0500 Body temperature 97.7 [degF] Dr. Rayshawn Cortes Work Phone: [facility] 09-16-2023 08:20-0500 Body weight 123.[address] Rayshawn Cortes Work Phone: [facility] 09-16-2023 08:20-0500 Diastolic blood pressure 68 mm[Hg] Dr. Rayshawn Cortes Work Phone: [facility] 09-16-2023 08:20-0500 Heart rate 101 /min Dr. Rayshawn Cortes Work Phone: [facility] 09-16-2023 08:20-0500 Respiratory rate 16 /min Dr. Rayshawn Cortes Work Phone: [facility] 09-16-2023 08:20-0500 SaO2% (BldA) [Mass fraction] 96 % Dr. Rayshawn Cortes Work Phone: [facility] 09-16-2023 08:20-0500 Systolic blood pressure 122 mm[Hg] Dr. Rayshawn Cortes Work Phone: [facility] 07-20-2023 15:49-0500 Body height 175.[address] Rayshawn Cortes Work Phone: [facility] 07-20-2023 15:49-0500 Body mass index (BMI) [Ratio] 41.3 kg/m2 Dr. Rayshawn Cortes Work Phone: [facility] 07-20-2023 15:49-0500 Body weight [address] Rayshawn Cortes Work Phone: [facility] 07-20-2023 15:49-0500 Diastolic blood pressure 77 mm[Hg] Dr. Rayshawn Cortes Work Phone: [facility] 07-20-2023 15:49-0500 Heart rate 95 /min Dr. Rayshawn Cortes Work Phone: [facility] 07-20-2023 15:49-0500 Respiratory rate 16 /min Dr. Rayshawn Cortes Work Phone: [facility] 07-20-2023 15:49-0500 Systolic blood pressure 120 mm[Hg] Dr. Rayshawn Cortes Work Phone: [facility] 06-30-2023 10:19-0500 Body mass index (BMI) [Ratio] 41.3 kg/m2 Dr. Rayshawn Cortes Work Phone: [facility] 06-30-2023 10:19-0500 Body temperature 97.5 [degF] Dr. Rayshawn Cortes Work Phone: [facility] 06-30-2023 10:19-0500 Body weight 127.[address] Rayshawn Cortes Work Phone: [facility] 06-30-2023 10:19-0500 Diastolic blood pressure 77 mm[Hg] Dr. Rayshawn Cortes Work Phone: [facility] 06-30-2023 10:19-0500 Heart rate 91 /min Dr. Rayshawn Cortes Work Phone: [facility] 06-30-2023 10:19-0500 Respiratory rate 16 /min Dr. Rayshawn Cortes Work Phone: [facility] 06-30-2023 10:19-0500 SaO2% (BldA) [Mass fraction] 95 % Dr. Rayshawn Cortes Work Phone: [facility] 06-30-2023 10:19-0500 Systolic blood pressure 130 mm[Hg] Dr. Rayshawn Cortes Work Phone: [facility] 02-10-2023 08:50-0400 Body height 175.[address] Rayshawn Cortes Work Phone: [facility] 02-10-2023 08:50-0400 Body mass index (BMI) [Ratio] 41.3 kg/m2 Dr. Rayshawn Cortes Work Phone: [facility] 02-10-2023 08:50-0400 Body temperature 97.6 [degF] Dr. Rayshawn Cortes Work Phone: [facility] 02-10-2023 08:50-0400 Body weight [address] Rayshawn Cortes Work Phone: [facility] 02-10-2023 08:50-0400 Diastolic blood pressure 77 mm[Hg] Dr. Rayshawn Cortes Work Phone: [facility] 02-10-2023 08:50-0400 Heart rate 80 /min Dr. Rayshawn Cortes Work Phone: [facility] 02-10-2023 08:50-0400 Respiratory rate 18 /min Dr. Rayshawn Cortes Work Phone: [facility] [facility] 08:50-0400 SaO2% (BldA) [Mass fraction] 97 % Dr. Rayshawn Cortes Work Phone: [facility] 02-10-2023 08:50-0400 Systolic blood pressure 122 mm[Hg] Dr. Rayshawn Cortes Work Phone: [facility] 01-26-2023 14:27-0400 Body mass index (BMI) [Ratio] 41.2 kg/m2 Dr. Rayshawn Cortes Work Phone: [facility] 01-26-2023 14:27-0400 Body weight 126.[address] Rayshawn Cortes Work Phone: [facility] 01-26-2023 14:27-0400 Diastolic blood pressure 79 mm[Hg] Dr. Rayshawn Cortes Work Phone: [facility] 01-26-2023 14:27-0400 Heart rate 86 /min Dr. Rayshawn Cortes Work Phone: [facility] 01-26-2023 14:27-0400 Respiratory rate 16 /min Dr. Rayshawn Cortes Work Phone: [facility] 01-26-2023 14:27-0400 Systolic blood pressure 130 mm[Hg] Dr. Rayshawn Cortes Work Phone: [facility] 11-21-2022 00:39-0400 Body weight 127.[address] Rayshawn Cortes Work Phone: [facility] 11-02-2022 10:24-0400 Body height 175.[address] Rayshawn Cortes Work Phone: [facility] 11-02-2022 10:24-0400 Body weight 127.[address] Rayshawn Cortes Work Phone: [facility] 11-01-2022 15:46-0400 Body mass index (BMI) [Ratio] 41.6 kg/m2 Dr. Rayshawn Cortes Work Phone: [facility] 11-01-2022 15:46-0400 Body weight 127.[address] Rayshawn Cortes Work Phone: [facility] 11-01-2022 15:46-0400 Diastolic blood pressure 89 mm[Hg] Dr. Rayshawn Cortes Work Phone: [facility] 11-01-2022 15:46-0400 Respiratory rate 18 /min Dr. Rayshawn Cortes Work Phone: [facility] 11-01-2022 15:46-0400 SaO2% (BldA) [Mass fraction] 94 % Dr. Rayshawn Cortes Work Phone: [facility] 11-01-2022 15:46-0400 Systolic blood pressure 137 mm[Hg] Dr. Rayshawn Cortes Work Phone: [facility] 10-03-2022 08:38-0400 Body weight 127.[address] Rayshawn Cortes Work Phone: [facility] 09-20-2022 08:28-0500 Body height 175.[address] Rayshawn Cortes Work Phone: [facility] 09-20-2022 08:28-0500 Body mass index (BMI) [Ratio] 41.2 kg/m2 Dr. Rayshawn Cortes Work Phone: [facility] 09-20-2022 08:28-0500 Body weight 126.[address] Rayshawn Cortes Work Phone: [facility] 09-20-2022 08:28-0500 Diastolic blood pressure 81 mm[Hg] Dr. Rayshawn Cortes Work Phone: [facility] 09-20-2022 08:28-0500 Heart rate 84 /min Dr. Rayshawn Cortes Work Phone: [facility] 09-20-2022 08:28-0500 Respiratory rate 18 /min Dr. Rayshawn Cortes Work Phone: [facility] 09-20-2022 08:28-0500 SaO2% (BldA) [Mass fraction] 95 % Dr. Rayshawn Cortes Work Phone: [facility] 09-20-2022 08:28-0500 Systolic blood pressure 124 mm[Hg] Dr. Rayshawn Cortes Work Phone: [facility] 09-05-2022 10:30-0500 Body height 175.[address] Rayshawn Cortes Work Phone: [facility] 09-05-2022 10:30-0500 Body weight 126.[address] Rayshawn Cortes Work Phone: [facility] 09-05-2022 10:13-0500 Body mass index (BMI) [Ratio] 41 kg/m2 Dr. Rayshawn Cortes Work Phone: [facility] 09-05-2022 10:13-0500 Body temperature 98.6 [degF] Dr. Rayshawn Cortes Work Phone: [facility] 09-05-2022 10:13-0500 Diastolic blood pressure 75 mm[Hg] Dr. Rayshawn Cortes Work Phone: [facility] 09-05-2022 10:13-0500 Heart rate 96 /min Dr. Rayshawn Cortes Work Phone: [facility] 09-05-2022 10:13-0500 Respiratory rate 14 /min Dr. Rayshawn Cortes Work Phone: [facility] 09-05-2022 10:13-0500 SaO2% (BldA) [Mass fraction] 98 % Dr. Rayshawn Cortes Work Phone: [facility] 09-05-2022 10:13-0500 Systolic blood pressure 128 mm[Hg] Dr. Rayshawn Cortes Work Phone: [facility] 08-25-2022 20:00-0500 Diastolic blood pressure 109 mm[Hg] Dr. Rayshawn Cortes Work Phone: [facility] 08-25-2022 20:00-0500 Heart rate 115 /min Dr. Rayshawn Cortes Work Phone: [facility] 08-25-2022 20:00-0500 Respiratory rate 21 /min Dr. Rayshawn Cortes Work Phone: [facility] 08-25-2022 20:00-0500 SaO2% (BldA) [Mass fraction] 97 % Dr. Rayshawn Cortes Work Phone: [facility] 08-25-2022 20:00-0500 Systolic blood pressure 128 mm[Hg] Dr. Rayshawn Cortes Work Phone: [facility] 08-25-2022 16:28-0500 Body temperature 98.8 [degF] Dr. Rayshawn Cortes Work Phone: [facility] 08-25-2022 10:37-0500 Body height 175.[address] Rayshawn Cortes Work Phone: [facility] 08-25-2022 10:37-0500 Body mass index (BMI) [Ratio] 41.8 kg/m2 Dr. Rayshawn Cortes Work Phone: [facility] 08-25-2022 10:37-0500 Body weight 128.[address] Rayshawn Cortes Work Phone: [facility] 08-19-2022 10:03-0500 Body height 176.[address] Rayshawn Cortes Work Phone: [facility] 08-19-2022 10:00-0500 Body mass index (BMI) [Ratio] 41.2 kg/m2 Dr. Rayshawn Cortes Work Phone: [facility] 08-19-2022 10:00-0500 Body weight 126.[address] Rayshawn Cortes Work Phone: [facility] 08-19-2022 10:00-0500 Diastolic blood pressure 78 mm[Hg] Dr. Rayshawn Cortes Work Phone: [facility] 08-19-2022 10:00-0500 Heart rate 95 /min Dr. Rayshawn Cortes Work Phone: [facility] 08-19-2022 10:00-0500 Respiratory rate 18 /min Dr. Rayshawn Cortes Work Phone: [facility] 08-19-2022 10:00-0500 SaO2% (BldA) [Mass fraction] 98 % Dr. Rayshawn Cortes Work Phone: [facility] 08-19-2022 10:00-0500 Systolic blood pressure 125 mm[Hg] Dr. Rayshawn Cortes Work Phone: [facility] 07-21-2022 09:26-0500 SaO2% (BldA) [Mass fraction] 98 % ANDREIA BATES [facility] Comment on above: Order Comment: Specimen Type: ARTERIAL B LOOD SPECIMENOrdering Facility: [facility] Address: [address] [place] [id number] Performed By: #### A LLBG ####[facility] [id number] [address] 07-21-2022 05:13-0500 SaO2% (BldA) [Mass fraction] 98 % ANDREIA BATES [facility] Comment on above: Order Comment: Specimen Type: ARTERIAL B LOOD SPECIMENOrdering Facility: [facility] Address: [address] [place] [address] Performed By: #### A LLBG ####[facility] [id number] [place] [id number] [facility] 07-21-2022 02:10-0500 SaO2% (BldA) [Mass fraction] 99 % ANDREIA BATES [facility] Comment on above: Order Comment: Specimen Type: ARTERIAL B LOOD SPECIMENOrdering Facility: [facility] Address: [address] [place] [address] Performed By: #### A LLBG ####[facility] [id number] [address] 07-20-2022 21:40-0500 SaO2% (BldA) [Mass fraction] 99 % ANDREIA BATES [facility] Comment on above: Order Comment: Specimen Type: ARTERIAL B LOOD SPECIMENOrdering Facility: [facility] Address: [address] [place] [address] Performed By: #### A LLBG ####[facility] [id number] [place] [id number] [facility] 07-20-2022 20:17-0500 SaO2% (BldA) [Mass fraction] 98 % ANDREIA BATES [facility] Comment on above: Order Comment: Specimen Type: ARTERIAL B LOOD SPECIMENOrdering Facility: [facility] Address: [address] [place] [address] Performed By: #### A LLBG ####[facility] [id number] [address] 07-20-2022 17:25-0500 SaO2% (BldA) [Mass fraction] 97 % ANDREIA BATES [facility] Comment on above: Order Comment: Specimen Type: ARTERIAL B LOOD SPECIMENOrdering Facility: [facility] Address: [address] [place] [address] Performed By: #### A LLBG ####[facility] [id number] [address] 07-20-2022 13:58-0500 SaO2% (BldA) [Mass fraction] 97 % ANDREIA BATES [facility] Comment on above: Order Comment: Specimen Type: ARTERIAL B LOOD SPECIMENOrdering Facility: [facility] Address: [address] [place] [address] Performed By: #### A LLBG ####[facility] [id number] [address] 07-20-2022 10:03-0500 SaO2% (BldA) [Mass fraction] 97 % ANDREIA BATES [facility] Comment on above: Order Comment: Specimen Type: ARTERIAL B LOOD SPECIMENOrdering Facility: [facility] Address: [address] [place] [address] Performed By: #### A LLBG ####[facility] [id number] [address] 07-20-2022 07:14-0500 SaO2% (BldA) [Mass fraction] 94 % ANDREIA BATES [facility] Comment on above: Order Comment: Specimen Type: ARTERIAL B LOOD SPECIMENOrdering Facility: [facility] Address: [address] [place] [address] Performed By: #### A LLBG ####[facility] [id number] [place] [id number] [facility] 07-20-2022 05:38-0500 SaO2% (BldA) [Mass fraction] 95 % ANDREIA BATES [facility] Comment on above: Order Comment: Specimen Type: ARTERIAL B LOOD SPECIMENOrdering Facility: [facility] Address: [address] [place], [place] [id number] Performed By: #### A LLBG ####[facility] [id number] [place] [id number] [facility] 07-20-2022 02:11-0500 SaO2% (BldA) [Mass fraction] 98 % ANDREIA BATES [facility] Comment on above: Order Comment: Specimen Type: ARTERIAL B LOOD SPECIMENOrdering Facility: [facility] Address: [address] [place] [address] Performed By: #### A LLBG ####[facility] [id number] [address] 07-20-2022 00:51-0500 SaO2% (BldA) [Mass fraction] 96 % ANDREIA BATES [facility] Comment on above: Order Comment: Specimen Type: ARTERIAL B LOOD SPECIMENOrdering Facility: [facility] Address: [address] [place] [address] Performed By: #### A LLBG ####[facility] [id number] [place] [id number] [facility] 07-19-2022 21:41-0500 SaO2% (BldA) [Mass fraction] 98 % ANDREIA BATES [facility] Comment on above: Order Comment: Specimen Type: ARTERIAL B LOOD SPECIMENOrdering Facility: [facility] Address: [address] [place] [place], [place] [id number] Performed By: #### A LLBG ####[facility] [id number] [place] [id number] [facility] 07-19-2022 20:33-0500 SaO2% (BldA) [Mass fraction] 96 % ANDREIA BATES [facility] Comment on above: Order Comment: Specimen Type: ARTERIAL B LOOD SPECIMENOrdering Facility: [facility] Address: [address] [place] [id number] Performed By: #### A LLBG ####[facility] [id number] [place] [id number] [facility] 07-19-2022 19:07-0500 SaO2% (BldA) [Mass fraction] 98 % ANDREIA BATES [facility] Comment on above: Order Comment: Specimen Type: ARTERIAL B LOOD SPECIMENOrdering Facility: [facility] Address: [address] [place], [place] [phone] Performed By: #### A LLBG ####[facility] [id number] [place] [id number] [facility] 07-19-2022 17:45-0500 SaO2% (BldA) [Mass fraction] 98 % ANDREIA BATES [facility] Comment on above: Order Comment: Specimen Type: ARTERIAL B LOOD SPECIMENOrdering Facility: [facility] Address: [address] [place] [address] Performed By: #### A LLBG ####[facility] [id number] [place] [id number] [facility] 07-19-2022 15:41-0500 SaO2% (BldA) [Mass fraction] 98 % ANDREIA BATES [facility] Comment on above: Order Comment: Specimen Type: ARTERIAL B LOOD SPECIMENOrdering Facility: [facility] Address: [address] [place] [phone] Performed By: #### A LLBG ####[facility] [id number] [place] [id number] [facility] 07-19-2022 14:21-0500 SaO2% (BldA) [Mass fraction] 98 % ANDREIA BATES [facility] Comment on above: Order Comment: Specimen Type: ARTERIAL B LOOD SPECIMENOrdering Facility: [facility] Address: [address] [place] [address] Performed By: #### A LLBG ####[facility] [id number] [address] [address] [facility] 07-19-2022 13:17-0500 SaO2% (BldA) [Mass fraction] 99 % ANDREIA BATES [facility] Comment on above: Order Comment: Specimen Type: ARTERIAL B LOOD SPECIMENOrdering Facility: [facility] Address: [address] [place] [phone] Performed By: #### A LLBG ####[facility] [id number] [place] [id number] [facility] 07-19-2022 12:43-0500 SaO2% (BldA) [Mass fraction] 96 % ANDREIA BATES [facility] Comment on above: Order Comment: Specimen Type: ARTERIAL B LOOD SPECIMENOrdering Facility: [facility] Address: [address] [place], [place] [phone] Performed By: #### A LLBG ####[facility] [id number] [place] [id number] [facility] 07-19-2022 12:08-0500 SaO2% (BldA) [Mass fraction] 100 % ANDREIA BATES [facility] Comment on above: Order Comment: Specimen Type: ARTERIAL B LOOD SPECIMENOrdering Facility: [facility] Address: [address] [place], [place] [phone] Performed By: #### A LLBG ####[facility] [id number] [place] [id number] [facility] 07-19-2022 11:31-0500 SaO2% (BldA) [Mass fraction] 100 % ANDREIA BATES [facility] Comment on above: Order Comment: Specimen Type: ARTERIAL B LOOD SPECIMENOrdering Facility: [facility] Address: [address] [place], [place] [phone] Performed By: #### A LLBG ####[facility] [id number] [address] [address] [facility] 07-19-2022 09:07-0500 SaO2% (BldA) [Mass fraction] 97 % ANDREIA BATES [facility] Comment on above: Order Comment: Specimen Type: ARTERIAL B LOOD SPECIMENOrdering Facility: [facility] Address: [address] [place] [address] Performed By: #### A LLBG ####[facility] [id number] [address] [address] [facility] 07-05-2022 14:09-0500 Body height 176.[address] Rayshawn Cortes Work Phone: [facility] Work Phone: 07-05-2022 14:09-0500 Body mass index (BMI) [Ratio] 41.5 kg/m2 Dr. Rayshawn Cortes Work Phone: [facility] 07-05-2022 14:09-0500 Body temperature 98 [degF] Dr. Rayshawn Cortes Work Phone: [facility] 07-05-2022 14:09-0500 Body weight 129.[address] Rayshawn Cortes Work Phone: [facility] 07-05-2022 14:09-0500 Diastolic blood pressure 83 mm[Hg] Dr. Rayshawn Cortes Work Phone: [facility] 07-05-2022 14:09-0500 Heart rate 98 /min Dr. Rayshawn Cortes Work Phone: [facility] 07-05-2022 14:09-0500 Respiratory rate 16 /min Dr. Rayshawn Cortes Work Phone: [facility] 07-05-2022 14:09-0500 SaO2% (BldA) [Mass fraction] 97 % Dr. Rayshawn Cortes Work Phone: [facility] 07-05-2022 14:09-0500 Systolic blood pressure 128 mm[Hg] Dr. Rayshawn Cortes Work Phone: [facility] 06-21-2022 08:51-0500 Body height 175.[address] Rayshawn Cortes Work Phone: [facility] Work Phone: 06-21-2022 08:51-0500 Body weight 126.[address] Rayhsawn Cortes Work Phone: [facility] 06-20-2022 08:08-0500 Body mass index (BMI) [Ratio] 41 kg/m2 Dr. Rayshawn Cortes Work Phone: [facility] 06-10-2022 11:27-0500 Body height 175.[address] Rayshawn Cortes Work Phone: [facility] Work Phone: 06-10-2022 11:27-0500 Body mass index (BMI) [Ratio] 41.1 kg/m2 Dr. Rayshawn Cortes Work Phone: [facility] 06-10-2022 11:27-0500 Body weight 126.[address] Rayshawn Cortes Work Phone: [facility] 06-10-2022 11:27-0500 Diastolic blood pressure 70 mm[Hg] Dr. Rayshawn Cortes Work Phone: [facility] 06-10-2022 11:27-0500 Heart rate 84 /min Dr. Rayshawn Cortes Work Phone: [facility] 06-10-2022 11:27-0500 Respiratory rate 16 /min Dr. Rayshawn Cortes Work Phone: [facility] 06-10-2022 11:27-0500 Systolic blood pressure 108 mm[Hg] Dr. Rayshawn Cortes Work Phone: [facility] 01-28-2022 11:03-0400 Body mass index (BMI) [Ratio] 40.1 kg/m2 Dr. Rayshawn Cortes Work Phone: [facility] Work Phone: 01-28-2022 11:03-0400 Body temperature 97.4 [degF] Dr. Rayshawn Cortes Work Phone: [facility] Work Phone: 01-28-2022 11:03-0400 Body weight 125.[address] Rayshawn Cortes Work Phone: [facility] Work Phone: 01-28-2022 11:03-0400 Diastolic blood pressure 86 mm[Hg] Dr. Rayshawn Cortes Work Phone: [facility] Work Phone: 01-28-2022 11:03-0400 Heart rate 89 /min Dr. Rayshawn Cortes Work Phone: [facility] Work Phone: 01-28-2022 11:03-0400 Respiratory rate 17 /min Dr. Rayshawn Cortes Work Phone: [facility] Work Phone: 01-28-2022 11:03-0400 SaO2% (BldA) [Mass fraction] 96 % Dr. Rayshawn Cortes Work Phone: [facility] Work Phone: 01-28-2022 11:03-0400 Systolic blood pressure 126 mm[Hg] Dr. Rayshawn Cortes Work Phone: [facility] Work Phone: Encounters Encounter Date Encounter Type Care Provider Facility Start: 01-30-2025 End: 01-30-[address] Rayshawn Cortes MD Work Phone: [facility] Start: 01-30-2025 End: 01-30-[address] Yuliana Nina DC [facility] Work Phone: Start: 01-07-2025 End: 01-07-[address] Yuliana Nina DC [facility] Work Phone: Start: 01-07-2025 End: 01-07-[address] Rayshawn Cortes MD Work Phone: [facility] Work Phone: Start: 12-31-2024 End: 12-31-[address] Yuliana Nina DC -[facility] Work Phone: Start: 12-31-2024 End: 12-31-[address] Rayshawn Cortes MD Work Phone: [facility] Work Phone: Start: 11-29-2024 End: 11-29-2024 Patient encounter procedure Linh Abdi RN [facility] Work Phone: Start: 11-29-2024 End: 11-29-2024 ambulatory Linh Abdi Facility:[facility] Start: 10-18-2024 End: 10-18-2024 Patient encounter procedure Linh Abdi RN [facility] Work Phone: Start: 10-18-2024 End: 10-18-2024 ambulatory Linh Abdi Facility:[facility] Start: 10-04-2024 ambulatory Archie Harris Aura Facility:[facility] Start: 09-13-2024 End: 09-13-2024 Patient encounter procedure Archie Harris Aura RN [facility] Work Phone: Start: 09-13-2024 End: 09-13-2024 ambulatory Archie Harris Aura Facility:[facility] Start: 08-09-2024 End: 08-09-2024 ambulatory Rayshawn Cortes Facility:[facility] Start: 08-02-2024 End: 08-02-2024 ambulatory Rayshawn Cortes Facility:[facility] Start: 07-16-2024 End: 07-16-2024 ambulatory Archie Chavarria Facility:[facility] Start: 07-12-2024 End: 07-12-2024 ambulatory Rayshawn Cortes Facility:[facility] Start: 07-11-2024 ambulatory Mariusz Daigle Facility:[facility] Start: 07-11-2024 End: 07-11-2024 ambulatory Rayshawn Cortes Facility:[facility] Start: 06-23-2024 End: 06-23-2024 ambulatory Archie Chavarria Facility:[facility] Start: 06-11-2024 End: 06-11-2024 ambulatory Deep ODONNELL Facility:[facility] Start: 03-22-2024 End: 03-22-2024 ambulatory Rayshawn Cortes Facility:[facility] Start: 09-29-2023 Non-patient / Non-visit Dr. Phillip Cortes Work Phone: [facility] Start: 09-29-2023 End: 09-29-[address] Rayshawn Cortes Work Phone: [facility] Work Phone: Start: 09-29-2023 End: 09-29-[address] [facility] Start: 09-16-2023 End: 09-16-[address] Rayshawn Cortes Work Phone: [facility] Work Phone: Start: 07-20-2023 End: 07-20-[address] Rayshawn Cortes Work Phone: [facility] Work Phone: Start: 07-20-2023 End: 07-20-[address] Rayshawn Cortes Work Phone: [facility] Work Phone: Start: 06-30-2023 End: 06-30-[address] [facility] Cort[facility] Work Phone: Start: 04-21-2023 End: 04-21-[address] [facility]ayshawn Cortes [facility] Start: 03-24-2023 End: 03-24-[address] Rayshawn Cortes Work Phone: [facility] Work Phone: Start: 03-24-2023 End: 03-24-[address] Rayshawn Cortes Work Phone: [facility] Work Phone: Start: 02-10-2023 End: 02-10-[address] [facility]ayshawn Cortes [facility] Work Phone: Start: 01-26-2023 End: 01-26-[address] Rayshawn Cortes Work Phone: [facility] Work Phone: Start: 12-14-2022 End: 12-21-[address] Rayshawn Cortes Work Phone: [facility] Work Phone: Start: 12-14-2022 End: 12-21-[address] Rayshawn Cortes Work Phone: [facility] Start: 11-16-2022 End: 11-20-[address] Rayshawn Cortes Work Phone: [facility] Work Phone: Start: 11-16-2022 End: 11-20-[address] Rayshawn Cortes Work Phone: [facility] Start: 11-01-2022 End: 11-01-[address] Rayshawn Cortes Work Phone: [facility] Start: 10-21-2022 End: 10-21-[address] Rayshawn Cortes Work Phone: [facility] Start: 10-05-2022 End: 10-05-[address] Rayshawn Cortes Work Phone: [facility] Start: 09-30-2022 Telephone encounter Hira cid MD Work Phone: Cardiology Comment on above: [facility] MED RECS VIA FA X Start: 09-28-2022 Non-patient / Non-visit Dr. Phillip Cortes Work Phone: [facility] Start: 09-28-2022 End: 09-28-[address] Rayshawn Cortes Work Phone: [facility] Start: 09-23-[address] Rayshawn Cortes Work Phone: [facility] Start: 09-20-2022 End: 09-20-[address] Rayshawn Cortes Work Phone: [facility] Work Phone: Start: 09-20-2022 End: 09-20-[address] Rayshawn Cortes Work Phone: [facility] Start: 09-20-2022 End: 09-20-[address] Rayshawn Cortes Work Phone: [facility] Start: 09-19-2022 End: 09-20-[address] Rayshawn Cortes Work Phone: [facility] Work Phone: Start: 09-19-2022 End: 09-20-[address] Rayshawn Cortes Work Phone: [facility] Start: 09-12-[address] Rayshawn Cortes Work Phone: [facility] Start: 09-07-2022 Telephone encounter Amanda GOTTI Comment on above: Post Dc Program Call - Needs Attn (Medication Concerns) Start: 09-05-2022 End: 09-05-[address] Rayshawn Cortes Work Phone: [facility] Work Phone: Start: 09-05-2022 End: 09-05-[address] Rayshawn Cortes Work Phone: [facility] Start: 09-02-2022 Telephone encounter Amanda GOTTI Comment on above: Follow Up Phone Call (RC f/u 1st attempt/) Start: 09-01-2022 Telephone encounter Andreia mejia MD Work Phone: Cardiology Comment on above: Post Dc Program Call - Needs Attn Start: 08-30-2022 Orders Only Hira Combs MD Work Phone: Cardiology Comment on above: Essential hypertensi on (Primary Dx); Nonrheumatic aortic valve stenosis Start: 08-26-2022 End: 09-01-2022 Evaluation and management of inpatient LEODAN LE Facility:[facility] Start: 08-25-2022 Non-patient / Non-visit Dr. Phillip Cortes Work Phone: [facility] Start: 08-25-2022 End: 08-25-2022 Emergency department patient visit Dr. Rayshawn Cortes Work Phone: [facility] [facility] Start: 08-24-2022 End: 08-24-[address] Rayshawn Cortes Work Phone: [facility] Work Phone: Start: 08-24-2022 End: 08-24-[address] Rayshawn Cortes Work Phone: [facility]-Laboratory Start: 08-24-2022 Telephone encounter Andreia mejia MD Work Phone: Cardiology Comment on above: Post Dc Program Call - Fyi Start: 08-19-2022 End: 08-19-[address] Rayshawn Cortes Work Phone: [facility] Start: 08-18-2022 Non-patient / Non-visit Dr. Phillip Cortes Work Phone: [facility] Start: 08-01-2022 Non-patient / Non-visit Dr. Phillip Cortes Work Phone: [facility] Start: 07-29-2022 Telephone encounter Amanda GOTTI Comment on above: Post Dc Program Call - Urgent (Increase Bi-Lateral Swelling) Post Dc Program Call - Fyi Start: 07-28-2022 End: 07-28-2022 Evaluation and management of inpatient RAYSHAWN CORTES Facility:[facility] Start: 07-23-2022 Orders Only Hira Combs MD Work Phone: Cardiology Comment on above: Bicuspid aortic valv e (Primary Dx); Severe aortic valve stenosis; Essential hypertension; S/P AVR Start: 07-19-2022 End: 07-28-2022 Evaluation and management of inpatient ANDREIA BATES Facility:[facility] Start: 07-13-2022 Patient encounter status Hira Combs MD Work Phone: [facility] Start: 07-12-2022 End: 07-12-2022 ambulatory Andreia Bates MD Work Phone: Cardiothoracic Comment on above: Patient Education Start: 07-12-2022 End: 07-12-2022 Admission to same day surgery center Anesthesia Clearance Work Phone: Cardiothoracic Start: 07-12-2022 End: 07-12-2022 Patient encounter procedure [facility] Work Phone: Cardiothoracic Comment on above: Pre-op testing (Prim kathleen Dx) Encounter for preope rative anesthesiology assessment for cardiac surgery (Primary Dx) Nonrheumatic aortic valve stenosis (Primary Dx) Start: 07-12-2022 End: 07-12-2022 Patient encounter status [facility] Work Phone: Cardiothoracic Start: 07-11-2022 End: 07-11-2022 ambulatory RAYSHAWN CORTES Facility:[facility] Start: 07-11-2022 End: 07-11-2022 Patient encounter procedure Pulm Fct Lab J-1 [facility] Start: 07-11-2022 End: 07-11-2022 Patient encounter status Pulm J-1 Pulmonary Medicine Start: 07-11-2022 End: 07-12-2022 ambulatory ANDREIA Robledo DURGA Pulmonary Medicine Comment on above: Spirometry Start: 07-11-2022 Encounter for preprocedural cardiovascular examination ANDREIA BATES [facility] Start: 07-11-2022 End: 07-11-[address] (I-Stat) Radiology Start: 07-11-2022 End: 07-11-2022 Subsequent hospital visit by physician Ct 2 Main Qb (I-Stat) Radiology Comment on above: 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] Start: 07-11-2022 End: 07-12-2022 ambulatory ANDREIA Robledo DURGA Facility:[facility] Start: 07-11-2022 Encounter for other preprocedural examination GLORIA SMITH [facility] Start: 07-11-2022 End: 07-11-2022 Patient encounter procedure Gloria Smith DMD Work Phone: Dentistry Comment on above: Pre-operative cleara nce (Primary Dx); Aortic valve disorder Start: 07-11-2022 End: 07-11-2022 Preoperative state Gloria Smith DMD Work Phone: Dentistry Start: 07-05-2022 Telephone encounter Hira cid MD Work Phone: Cardiology Comment on above: Appointment Start: 07-05-2022 End: 07-05-[address] Rayshawn Cortes Work Phone: [facility] Radiology Start: 07-01-2022 Patient encounter status Andreia Bates MD Work Phone: Cardiothoracic Start: 07-01-2022 Telephone encounter Andreia mejia MD Work Phone: Cardiothoracic Comment on above: Pre-Op CTHO Consult; Cardiac Preop Checklist Start: 06-30-2022 Non-patient / Non-visit Dr. Phillip Cortes Work Phone: [facility] Start: 06-30-2022 End: 06-30-[address] Rayshawn Cortes Work Phone: [facility] Work Phone: Start: 06-30-2022 End: 06-30-[address] Rayshawn Cortes Work Phone: [facility] Start: 06-28-2022 Non-patient / Non-visit Dr. Phillip Cortes Work Phone: [facility] Start: 06-28-2022 End: 06-28-2022 Admission to same day surgery center Dr. Rayshawn Cortes Work Phone: [facility]-Cardiovascular Services Start: 06-28-2022 End: 06-28-[address] Rayshawn Cortes Work Phone: [facility] Work Phone: Start: 06-24-2022 Non-patient / Non-visit Dr. Phillip Cortes Work Phone: [facility] Start: 06-21-2022 End: 06-21-2022 Admission to same day surgery center Dr. Rayshawn Cortes Work Phone: [facility]-Pill Machine Operator/Special Procedures Start: 06-21-2022 End: 06-21-[address] Rayshawn Cortes Work Phone: [facility] Work Phone: Start: 06-17-2022 Non-patient / Non-visit Dr. Phillip Cortes Work Phone: [facility] Start: 06-17-2022 End: 06-17-[address] Rayshawn Cortes Work Phone: [facility] Work Phone: Start: 06-17-2022 End: 06-17-[address] Rayshawn Cortes Work Phone: [facility]-Cardiovascular Services Start: 06-10-2022 Non-patient / Non-visit Dr. Phillip Cortes Work Phone: [facility] Start: 06-10-2022 End: 06-10-[address] Rayshawn Cortes Work Phone: [facility] Work Phone: Start: 06-10-2022 End: 06-10-[address] Rayshawn Cortes Work Phone: [facility]-Radiology, [facility] Start: 06-10-2022 End: 06-10-[address] Rayshawn Cortes Work Phone: [facility] Start: 03-11-2022 End: 03-11-[address] Rayshawn Cortes Work Phone: [facility]-Pulmonary Medicine [facility] Start: 11-18-2021 Patient encounter procedure [facility] Provider [facility] Department Start: 11-18-2021 Telephone encounter Renaldo magana MD Work Phone: [facility] Comment on above: Appointment Procedures Date Procedure Procedure Detail Performing Clinician Start: 11-29-2024 Plain X-ray of shoulder Dr. Rayshawn Cortes MD Work Phone: Start: 10-18-2024 X-ray of cervical spine Dr. Rayshawn Cortes MD Work Phone: Start: 09-13-2024 Measurement of renal function Dr. Rayshawn Cortes MD Work Phone: Comment on above: GFR Calc Start: 09-20-2022 Plain chest X-ray Dr. Sabrina Cortes Work Phone: Start: 08-28-2022 Echocardiography ANDREIA LÓPEZ Start: 08-26-2022 Antibody screen ANDREIA YING Comment on above: Order Comment: Speci men Type: BLOOD SPECIMENOrdering Facility: [facility] Address: [address] [place] [address] Performed By: #### T SCR ####CC MAIN BLOOD BANKCLIA [id number] [address] Start: 08-25-2022 CT angiography of ch est with contrast Dr. Rayshawn Cortes Work Phone: Start: 07-11-2022 Echocardiography ANDREIA LÓPEZ Start: 07-11-2022 Antibody screen ANDREIA YING Comment on above: Order Comment: Speci men Type: BLOOD SPECIMENOrdering Facility: [facility] Address: [address] [place] [address] Performed By: #### T [id number] ####CC MAIN BLOOD BANKCLIA [id number] [address] Start: 07-11-2022 Spmtry w/vc expirato ry siobhan w/wo mxml vol vntj Andreia Bates MD Work Phone: Start: 07-11-2022 Ct angiography chest w/contrast/noncontrast Andreia Bates MD Work Phone: Start: 07-05-2022 Plain chest X-ray Dr. Sabrina Cortes Work Phone: Start: 06-10-2022 Plain chest X-ray Dr. Sabrina Cortes Work Phone: Viral antigen assay Dr. Rayshawn Cortes Work Phone: Viral antigen assay Dr. Rayshawn Cortes Work Phone: Viral antigen assay Dr. Rayshawn Cortes Work Phone: Plan of Treatment Date Care Activity Detail Author Start: 09-01-2025 DIABETES SCREEN DIABETES SCREEN [facility] Start: 08-30-2025 DIABETES SCREEN DIABETES SCREEN [facility] Start: 07-28-2025 DIABETES SCREEN DIABETES SCREEN [facility] Start: 07-27-2025 DIABETES SCREEN DIABETES SCREEN [facility] Start: 07-11-2025 DIABETES SCREEN DIABETES SCREEN [facility] Start: 02-01-2025 ambulatory Ambulatory Facility:[facility] Start: 09-05-2022 [facility] Start: 09-05-2022 Patient referral to dietitian [facility] Start: 08-30-2022 End: 10-30-2022 Basic metabolic 2000 panel - Serum or Plasma BASIC METABOLIC PNL Lab Routine Essential hypertension Nonrheumatic aortic valve stenosis Expected: 08/30/2022, Expires: 10/30/2022 [facility] Work Phone: Comment on above: Expected: 08/30/2022 , Expires: 10/30/2022 Start: 08-30-2022 End: 10-30-2022 CBC panel - Blood by Automated count CBC Lab Routine Essential hypertension Nonrheumatic aortic valve stenosis Expected: 08/30/2022, Expires: 10/30/2022 [facility] Work Phone: Comment on above: Expected: 08/30/2022 , Expires: 10/30/2022 Start: 08-30-2022 End: 10-30-2022 Lipid 1996 panel - Serum or Plasma LIPID PANEL BASIC Lab Routine Essential hypertension Nonrheumatic aortic valve stenosis Expected: 08/30/2022, Expires: 10/30/2022 [facility] Work Phone: Comment on above: Expected: 08/30/2022 , Expires: 10/30/2022 Start: 08-18-2022 Patient referral [facility] Work Phone: Start: 07-24-2022 DEPRESSION ASSESSMENT DEPRESSION ASS ESSMENT [facility] Start: 07-23-2022 End: 09-22-2022 Basic metabolic 2000 panel - Serum or Plasma BASIC METABOLIC PNL Lab Routine Bicuspid aortic valve Severe aortic valve stenosis Essential hypertension S/P AVR Expected: 07/23/2022, Expires: 09/22/2022 [facility] Work Phone: Comment on above: Expected: 07/23/2022 , Expires: 09/22/2022 Start: 07-23-2022 End: 09-22-2022 CBC panel - Blood by Automated count CBC Lab Routine Bicuspid aortic valve Severe aortic valve stenosis Essential hypertension S/P AVR Expected: 07/23/2022, Expires: 09/22/2022 [facility] Work Phone: Comment on above: Expected: 07/23/2022 , Expires: 09/22/2022 Start: 07-23-2022 End: 09-22-2022 Lipid 1996 panel - Serum or Plasma LIPID PANEL BASIC Lab Routine Bicuspid aortic valve Severe aortic valve stenosis Essential hypertension S/P AVR Expected: 07/23/2022, Expires: 09/22/2022 [facility] Work Phone: Comment on above: Expected: 07/23/2022 , Expires: 09/22/2022 Start: 07-01-2022 End: 08-31-2022 aPTT in Platelet poor plasma by Coagulation assay ACTIVATED PTT Lab Routine Disorder of artery or arteriole (HCC) Pre-operative cardiovascular examination Aortic valve disorder Expected: 07/01/2022 (Approximate), Expires: 08/31/2022 [facility] Work Phone: Comment on above: Expected: 07/01/2022 (Approximate), Expires: 08/31/2022 Start: 07-01-2022 End: 08-31-2022 CBC W Auto Differential panel - Blood CBC + DIFF Lab Routine Disorder of artery or arteriole (HCC) Pre-operative cardiovascular examination Aortic valve disorder Expected: 07/01/2022, Expires: 08/31/2022 [facility] Work Phone: Comment on above: Expected: 07/01/2022 , Expires: 08/31/2022 Start: 07-01-2022 End: 08-31-2022 Comprehensive metabolic 2000 panel - Serum or Plasma COMP METABOLIC PANEL Lab Routine Disorder of artery or arteriole (HCC) Pre-operative cardiovascular examination Aortic valve disorder Expected: 07/01/2022, Expires: 08/31/2022 [facility] Work Phone: Comment on above: Expected: 07/01/2022 , Expires: 08/31/2022 Start: 07-01-2022 End: 08-31-2022 CONFIRM BLOOD TYPE CONFIRM BLOOD TYPE Blood Bank Routine Disorder of artery or arteriole (HCC) Pre-operative cardiovascular examination Aortic valve disorder Expected: 07/01/2022, Expires: 08/31/2022 [facility] Work Phone: Comment on above: Expected: 07/01/2022 , Expires: 08/31/2022 Start: 07-01-2022 End: 08-31-2022 Hepatic function 2000 panel - Serum or Plasma HEPATIC FUNCTION PNL Lab Routine Disorder of artery or arteriole (HCC) Pre-operative cardiovascular examination Aortic valve disorder Expected: 07/01/2022, Expires: 08/31/2022 [facility] Work Phone: Comment on above: Expected: 07/01/2022 , Expires: 08/31/2022 Start: 07-01-2022 End: 08-31-2022 Lactate dehydrogenase [Enzymatic activity/volume] in Serum or Plasma LD LACTATE DEHYDRO Lab Routine Disorder of artery or arteriole (HCC) Pre-operative cardiovascular examination Aortic valve disorder Expected: 07/01/2022, Expires: 08/31/2022 [facility] Work Phone: Comment on above: Expected: 07/01/2022 , Expires: 08/31/2022 Start: 07-01-2022 End: 08-31-2022 PT panel - Platelet poor plasma by Coagulation assay PROTHROMBIN TIME/PT Lab Routine Disorder of artery or arteriole (HCC) Pre-operative cardiovascular examination Aortic valve disorder Expected: 07/01/2022 (Approximate), Expires: 08/31/2022 [facility] Work Phone: Comment on above: Expected: 07/01/2022 (Approximate), Expires: 08/31/2022 Start: 07-01-2022 End: 08-31-2022 TYPE AND SCREEN,30 DAY TYPE AND SCREEN,30 DAY Blood Bank Routine Disorder of artery or arteriole (HCC) Pre-operative cardiovascular examination Aortic valve disorder Expected: 07/01/2022, Expires: 08/31/2022 [facility] Work Phone: Comment on above: Expected: 07/01/2022 , Expires: 08/31/2022 Start: 07-01-2022 End: 08-31-2022 URINALYSIS, DIPSTICK ONLY URINALYSIS, DIPSTICK ONLY Lab Routine Disorder of artery or arteriole (HCC) Pre-operative cardiovascular examination Aortic valve disorder Expected: 07/01/2022, Expires: 08/31/2022 [facility] Work Phone: Comment on above: Expected: 07/01/2022 , Expires: 08/31/2022 Start: 06-28-2022 Application of intermittent pneumatic compression device [facility] Start: 06-28-2022 Taking patient vital signs [facility] Start: 06-28-2022 [facility] Start: 03-24-2022 Influenza vaccination INFLUENZA (#1) [facility] Start: 03-11-2022 Patient referral [facility] Work Phone: Start: 07-24-2021 DEPRESSION ASSESSMENT DEPRESSION ASS ESSMENT [facility] Start: 12-27-2019 COLOGUARD (FIT-DNA) COLOGUARD (FIT-D NA) [facility] Start: 12-27-2019 Colonoscopy COLONOSCOPY [facility] Start: 12-27-2019 COLORECTAL CANCER SCREENING COLORECTAL CANCER SCREENING [facility] Start: 12-27-[address] COLONOGRAPHY [facility] Start: 12-27-2019 DIABETES SCREEN DIABETES SCREEN [facility] Start: 12-27-2019 FECAL OCCULT BLOOD FECAL OCCULT BLOO D [facility] Start: 12-27-2019 SIGMOIDOSCOPY SIGMOIDOSCOPY [facility] Start: 2009 LIPID SCREEN LIPID SCREEN [facility] Start: 1993 Urine microalbumin profile DTAP,TDAP ,TD (1 - Tdap) [facility] Start: 1992 ANNUAL PCP TEAM ICT BUSINESS DEVELOPMENT MANAGER [place] DISEASE VISIT ANNUAL PCP TEAM CHRONIC DISEASE VISIT [facility] Start: 1992 BP CONTROLLED (<130/80) BP CONTROLLE D (<130/80) [facility] Start: 1992 HEPATITIS C SCREENING HEPATITIS C SC REENING [facility] Start: 1992 HIV SCREENING HIV SCREENING [facility] Start: 1980 PNEUMOCOCCAL (1 - PCV) PNEUMOCOCCAL (1 - PCV) [facility] Start: 06-27-1975 COVID-19 VACCINE (#1) COVID-19 VACCI NE (#1) [facility] Start: 1974 HEPATITIS B (1 of 3 - 3-dose series) HEPATITIS B (1 of 3 - 3-dose series) [facility] Blood chemistry [facility] Catheterization of l eft heart [facility] Work Phone: CBC W Auto Different ial panel - Blood [facility] End: 07-31-2023 Ct angiography chest w/contrast/noncontrast CTA CHEST (GATED) W IVCON Radiology Routine Disorder of artery or arteriole (HCC) Pre-operative cardiovascular examination Aortic valve disorder 1 Occurrences starting 07/01/2022 until 07/31/2023 [facility] Work Phone: Comment on above: 1 Occurrences starti ng 07/01/2022 until 07/31/2023 End: 07-01-2023 ECG COMPLETE ECG COMPLETE ECG Routine Disorder of artery or arteriole (HCC) Pre-operative cardiovascular examination Aortic valve disorder 1 Occurrences starting 07/01/2022 until 07/01/2023 [facility] Work Phone: Comment on above: 1 Occurrences starti ng 07/01/2022 until 07/01/2023 End: 07-23-2023 ECG COMPLETE ECG COMPLETE ECG Routine Bicuspid aortic valve Severe aortic valve stenosis Essential hypertension S/P AVR 1 Occurrences starting 07/23/2022 until 07/23/2023 [facility] Work Phone: Comment on above: 1 Occurrences starti ng 07/23/2022 until 07/23/2023 End: 08-30-2023 ECG COMPLETE ECG COMPLETE ECG Routine Essential hypertension Nonrheumatic aortic valve stenosis 1 Occurrences starting 08/30/2022 until 08/30/2023 [facility] Work Phone: Comment on above: 1 Occurrences starti ng 08/30/2022 until 08/30/2023 End: 07-01-2023 Echocardiography ECHO Cardiology Routine Disorder of artery or arteriole (HCC) Pre-operative cardiovascular examination Aortic valve disorder 1 Occurrences starting 07/01/2022 until 07/01/2023 [facility] Work Phone: Comment on above: 1 Occurrences starti ng 07/01/2022 until 07/01/2023 End: 07-23-2023 Echocardiography ECHO Cardiology Routine Bicuspid aortic valve Severe aortic valve stenosis Essential hypertension S/P AVR 1 Occurrences starting 07/23/2022 until 07/23/2023 [facility] Work Phone: Comment on above: 1 Occurrences starti ng 07/23/2022 until 07/23/2023 End: 08-30-2023 Echocardiography ECHO Cardiology Routine Essential hypertension Nonrheumatic aortic valve stenosis 1 Occurrences starting 08/30/2022 until 08/30/2023 [facility] Work Phone: Comment on above: 1 Occurrences starti ng 08/30/2022 until 08/30/2023 FULL MOUTH DEBRIDEME NT TO ENABLE A COMPREHENSIVE ORAL EVALUATION AND DIAGNOSIS ON A SUBSEQUENT VISIT FULL MOUTH DEBRIDEMENT TO ENABLE A COMPREHENSIVE ORAL EVALUATION AND DIAGNOSIS ON A SUBSEQUENT VISIT Dental Routine 1 Occurrences starting 07/11/2022 [facility] Work Phone: Comment on above: 1 Occurrences starti ng 07/11/2022 End: 07-31-2023 LUNG DIFFUSION CAPACITY (DLCO) LUNG DIFFUSION CAPACITY (DLCO) PFT Routine Disorder of artery or arteriole (HCC) Pre-operative cardiovascular examination Aortic valve disorder 1 Occurrences starting 07/01/2022 until 07/31/2023 [facility] Work Phone: Comment on above: 1 Occurrences starti ng 07/01/2022 until 07/31/2023 LUNG DIFFUSION CAPAC ITY (DLCO) LUNG DIFFUSION CAPACITY (DLCO) PFT Routine Disorder of artery or arteriole (HCC) Pre-operative cardiovascular examination Aortic valve disorder 07/11/2022 1:48 PM EST [facility] Work Phone: MR Cervical spine [facility] Patient referral [facility] Work Phone: End: 07-31-2023 SPIROMETRY BASELINE ONLY SPIROMETRY BASELINE ONLY PFT Routine Disorder of artery or arteriole (HCC) Pre-operative cardiovascular examination Aortic valve disorder 1 Occurrences starting 07/01/2022 until 07/31/2023 [facility] Work Phone: Comment on above: 1 Occurrences starti ng 07/01/2022 until 07/31/2023 SPIROMETRY BASELINE ONLY SPIROME TRY BASELINE ONLY PFT Routine Disorder of artery or arteriole (HCC) Pre-operative cardiovascular examination Aortic valve disorder 07/11/2022 1:48 PM EST [facility] Work Phone: [facility] Payers Date Payer Category Payer Self-pay [id number] 2022 Medicaid [id number] 2022 Medicaid [id number] 2020 Unknown [id number] 2020 Unknown [employer] C[employer] PPO OOS [id number] 2020-Present [phone] [address] [place] [address] PPO [id number] Unknown [facility] [id number] Unknown [id number] Unknown [id number] Unknown [id number] Unknown [id number] Unknown [id number] Unknown [id number] Unknown [id number] [id number] Unknown [id number] [id number] Unknown [id number] [id number] Unknown [id number] Unknown [id number] [id number] Unknown [id number] [id number] Unknown [id number] [id number] Unknown [id number] 2..[id number] Unknown [id number] [id number] Unknown [id number] [id number] Unknown [id number] Unknown [id number] [id number] Unknown [id number] Social History Date Type Detail Facility Start: 06-10-2022 End: 09-16-2023 Tobacco smoking status TNIS Tobacco smoking consumption unknown [facility] Start: 1975 Sex Assigned At Not on file C [facility] Start: 1975 Sex Assigned At Male [facility] Start: 07-12-2022 End: 08-08-2024 Tobacco smoking status TNIS Never smoked tobacco [facility] Start: 07-12-2022 Tobacco use and exposure Smokeless tobacco non-user [facility] Start: 07-12-2022 Alcohol intake Lifetime non-d spike (finding) [facility] Start: 07-21-2022 History SDOH Financial 5 [facility] Start: 07-21-2022 History SDOH Food Worry 1 [facility] Start: 07-21-2022 History SDOH Transpo rt Med 2 [facility] Medical Equipment Procedure Code Equipment Code Equipment Original Text Equipment Identifier Dates [place] Thk1.65mm P tfe 4x.5in Cardiovascular Sterile - [id number] Start: 07-19-2022 Valve Cherry Fle xcuff 23mm 21.4mm 85d Ptfe Pyrolytic Carbon Aortic 1 Digit - [id number] Start: 07-19-2022 Goals Date Patient Goal Desired Activity /State Mental Status Date Assessment Result Facility 08-25-2022 Cognitive function Voice/Name [facility] Work Phone: Clinical Notes 11-18-2021 to 10-18-2024 Note Date & Type Note Facility 10-18-2024 Evaluation note Diagnosis Onset Date Resolution Cervical radiculopathy acute [facility] 2024 2:26pm Trigger point of neck acute Mar 2024 2:26pm Trigger point of neck acute November 29, 2024 2:41pm Cervical pain (neck) acute December 31, 2024 3:36pm Cervical radiculopathy acute 2024 3:36pm [facility] Work Phone: [phone] 255-273903-28-2025 Evaluation note* Diagnosis Onset Date Resolution Status Admit Date Cervical radiculopathy acute [facility] 2024 2:26pm Trigger point of neck acute [facility] 2024 2:26pm Trigger point of neck acute November 29, 2024 2:41pm Cervical radiculopathy acute [facility] 2024 3:36pm Cervicogenic headache acute Dec 3:36pm Segmental and somatic dysfunction of cervical region acute J count includes the [facility] 2024 3:36pm Segmental and somatic dysfunction of thoracic region acute J count includes the [facility] 2024 3:36pm Cervicogenic headache acute Neville e 2024 3:59pm Segmental and somatic dysfunction of cervical region acute J count includes the [facility] 2024 3:59pm Segmental and somatic dysfunction of thoracic region acute J count includes the [facility] 2024 3:59pm [facility] Work Phone: 1(715) 381-133003-28-2025 Evaluation note* Diagnosis Onset Date Resolution Status Admit Date Cervical radiculopathy acute [facility] 2024 2:26pm Trigger point of neck acute [facility] 2024 2:26pm Trigger point of neck acute November 29, 2024 2:41pm Cervical radiculopathy acute [facility] 2024 3:36pm Cervicogenic headache acute Dec 3:36pm Segmental and somatic dysfunction of cervical region acute J count includes the [facility] 2024 3:36pm Segmental and somatic dysfunction of thoracic region acute J count includes the [facility] 2024 3:36pm Cervicogenic headache acute Neville e 2024 3:59pm Segmental and somatic dysfunction of cervical region acute J une 2024 3:59pm Segmental and somatic dysfunction of lumbar region acute Neville e 2024 3:59pm Segmental and somatic dysfunction of pelvic region acute Neville e 2024 3:59pm Segmental and somatic dysfunction of thoracic region acute J une 2024 3:59pm Cervicogenic headache acute Jan 3:53pm Segmental and somatic dysfunction of cervical region acute J nilson2024 3:53pm Segmental and somatic dysfunction of lumbar region acute Jan 3:53pm Segmental and somatic dysfunction of pelvic region acute Jan 3:53pm Segmental and somatic dysfunction of thoracic region acute J nilson 2024 3:53pm [facility] Work Phone: 1(706) 893-739303-10-2023 Miscellaneous Notes* Telephone Encounter - Renuka Norris - 09/30/2022 8:53 AM ESTSummary: 6 PGS IN OPD FILE Images from the original note were not included. documented in this encounterSelect Medical [facility]02-15-2023 Miscellaneous Notes* Telephone Encounter - Amanda Britton RN - 09/07/2022 3:38 PM EST Per Ara Jules APRN.INSURANCE ANALYST, Pt has not been see in OPD. They are 1 week within discharge. Pleasedirect back to in patient cardiac pool or discharge provider[place]! [place] [phone]. Amanda Britton RN * Telephone Encounter - Amanda Britton RN - 09/07/2022 3:03 PM EST 1. Have you noticed any increased shortness of breath since you left the hospital? (HVI Red Flag Question) No 2. Have you noticed any increased swelling in your feet, ankles or belly? (Heart Failure Red Flag Question) No 3. Have you gained more than 2 - 3 pounds since discharge? (HVI Red Flag Question) No 4. Have you noticed any changes to your incision or wound since you were discharged as we want to be aware of any signs of infection? (HVI Red Flag Question) No 5. Are you having any increased pain since discharge? If Yes: What type of pain and where? (HVI RedFlag Question) Yes, Sharp Pain Pt stated he is experiencing increased pain on the Rt side of his chest. Pt stated it is a stabbingpain near the main incision. Pt stated he believes his increased pain is d/t having a cold that he got from his kids. Pt stated his pain is a 6 or 7 / 10 when it hits. Pt stated his pain is a 0/10 atthis time. Pt stated he only experiences the pain when blowing his nose, sneezing, or getting into a car. 6. Have you had any unplanned trips to the Emergency Department or Hospital since you were discharged? If yes: Why? (Heart Failure Red Flag Question) No 7. Do you have any questions about how to take your medications? (Standard Question) Other Pt stated he would like to know if he can start taking his Lisinopril 5 mg again because his BP hasbeen elevated again. Pt stated his BP was 140/82 today. Pt stated he was stopped on the Lisinopril when he went to the ER. Pt stated he is usually between 110-118/70's when taking the Lisinopril. Pt stated he has now been between 130-140/80's. Pt stated he was 170/100 while working out at rehab today. Pt would like a callback regarding his concerns. 8. Have you filled your prescriptions [if no-why? If related to cost - Do you need to be connected to someone who can help you with the cost?] Reminder: Please bring in your medications at your follow up appointment. (HVI Red Flag Question) Yes 9. Do you have a doctor s appointment scheduled or is someone working on getting you a follow-up appointment? (Standard Question) Yes Overall Comments: Non-Urgent: Medication Concerns. Closing statement given. [facility] PD nurse confirmed/verified patient's and full name. Amanda Britton RN documented in this encounterSelect Medical Ohiohealth Rehabilitation Hospital02-10-2023 Miscellaneous Notes* Telephone Encounter - Amanda Britton RN - 09/02/2022 3:56 PM EST PD nurse called patient for follow up from recent hospital discharge, but no answer, and no opportunity to leave a voicemail message. Amanda Britton RN documented in this encounterSelect Medical Ohiohealth [facility] Hospital02-09-2023 Miscellaneous Notes* Telephone Encounter - Isabella Vega RN - 09/01/2022 5:01 PM EST [facility] Contact Center Inbound Phone Encounter DATE of SERVICE: 09/01/2022 TIME of SERVICE: 5:01 PM Status: Non-urgent, needs attention Service/Provider: Cardiac Surgery Andreia Bates M.D. Reason for call: Medication Issue/Question Contact information: [phone] Resolution: sent to [facility] Comments: called and stated that she called the local pharmacy for his discharge medications and stated someone from here cancelled all his meds. Please advise PageAmaya farmer CNP on 09/02/2022 Isabella Vega RN Date of Resolution: 09/01/2022 Time of Resolution 5:01 PM documented in this encounterSelect Medical Ohiohealth [facility]02-09-2023 [facility]23 [facility]-06-2023 [facility]02-05-2023 Note [facility]-20[facility] 08-25-[address] Whyte [facility] August 25, 2022 3:57pm Note Date/Time August 25, 2022 1 0:59am [facility] Medical Records Department [address] [place] [id number] Emergency Department Summary 08/25/22 MR#: [id number] Acct: [id number] Name: LEWIS GEORGE Rep #:[id number] : 1975 46 From: Leodan De Leon PCP: RAYSHAWN CORTES Status:REG ER Location: ED HPI History of Present Illness Chief Complaint: Palpitations Informant: patient Narrative Narrative: Presents referred in by PCP and his felting machine operator for evaluation. He is postop aortic mechanical valve repair July 19 at [facility] ( Dr. Andreia Moore). He is on warfarin. History of bicuspid valve. States he was doing fine up to 2 days ago had increasing dyspnea and intermittent chest pains. He states he had a heart cath here by Dr. Hayes with normal coronary arteries. Called on-call felting machine operator last night was told go to ED. He waited to see his PCP today and was referred here. Pulse ox was 93% in the office. He reports his INR was 2.1. Reported this not normal. Therefore sent here. Denies leg swelling or cramping. History of sleep apnea. Dyspnea with exertion. [facility] Medical History Anal fissure Aortic root dilatation Aortic stenosis Arthritis Asthma Bicuspid aortic valve Blood in stool BRBPR (bright red blood per rectum) Cardiac murmur Carpal tunnel syndrome Chest pain COVID-19 Essential hypertension Fatty liver Heart murmur History of back problems Hypertension Lumbar stenosis Migraines Obesity CARMEL (obstructive sleep apnea) Pneumonia Pneumonia due to COVID-19 virus Sciatica Severe aortic valve stenosis SOB (shortness of breath) Home Medications aspirin 81 mg tablet,delayed release 81 mg PO DAILY #1 TAB 06/10/22 [Rx Last Taken 06/28/22] metoprolol succinate 100 mg tablet,extended release 24 hr 100 mg PO BID 08/01/22[History Last Taken Unknown] lisinopril 10 mg tablet 10 mg PO DAILY 08/19/22 [History Last Taken Unknown] warfarin 10 mg tablet 5 mg PO DAILY 08/19/22 [History Last Taken Unknown] acetaminophen 500 mg tablet 1,000 mg PO Q6H PRN Pain 08/25/22 [History Last Taken Unknown] Allergy/AdvReac Type Severity Reaction Status Date / Time formoterol [From Dulera] AdvReac Unknown Headache Verified 08/25/22 10:37 mometasone furoate AdvReac Unknown Mouth Sores Verified 08/25/22 10:37 [From Asmanex Twisthaler] Family History Mother Hypertension Kidney disease Father Hypertension Kidney disease CAD (coronary artery disease) History of coronary artery bypass surgery Grandfather Diabetes Grandmother Diabetes Surgical History H/O rhinoplasty History of mechanical aortic valve replacement (~07/19/22) S/p bilateral carpal tunnel release Social History household members: spouse Smoking Status: Never smoker alcohol intake: never substance use type: does not use caffeine: No ROS ROS ED Constitutional Constitutional ED: Denies chills, fever(s) or sweats Eyes Eyes: Denies change in vision ENT ENT ED: Denies dysphagia or sore throat Cardiovascular Cardiovascular: Reports chest pain; Denies leg edema, palpitations or racing heartbeat Respiratory/Chest Respiratory/Chest: Reports dyspnea and dyspnea on exertion; Denies cough Gastrointestinal Gastrointestinal: Denies abdominal pain, diarrhea, nausea or vomiting Genitourinary Genitourinary ED: Denies dysuria, hematuria or urinary frequency Musculoskeletal Musculoskeletal: Denies back pain, extremity pain or neck pain Integumentary Denies rash or wounds Neurologic Neurologic: Denies headache(s), paresthesias or weakness EXAM Physical Exam Const Vital Signs: 08/25/22 10:37 08/25/22 10:39 08/25/22 10:40 Temperature 97.3 F L Temperature Source Oral Pulse Rate 117 H 115 H Respiratory Rate 18 Respiratory Effort Normal Non-Labored Blood Pressure 134/90 H Blood Pressure Mean 104 Pulse Ox 98 Oxygen Delivery Method Room Air 08/25/22 11:39 08/25/22 12:29 08/25/22 13:05 Temperature Temperature Source Pulse Rate 108 H 107 H 107 H Respiratory Rate 18 18 17 Respiratory Effort Blood Pressure 131/84 H 112/72 113/74 Blood Pressure Mean 99 85 87 Pulse Ox 96 94 99 Oxygen Delivery Method Room Air Room Air Room Air 08/25/22 14:05 08/25/22 14:55 08/25/22 15:03 Temperature Temperature Source Pulse Rate 107 H 106 H Respiratory Rate 20 H 19 H Respiratory Effort Blood Pressure 116/67 126/23 H 108/69 Blood Pressure Mean 83 57 82 Pulse Ox 98 99 Oxygen Delivery Method Room Air Room Air Positive well nourished and well developed Constitutional Narrative: No distress. General Appearance ED: well developed and NAD HEENT Reports moist mucous membranes normocephalic and atraumatic Eyes PERRL, EOMs intact bilaterally and conjunctivae normal General Eye ED: Yes normal appearance of both eyes Neck no lymphadenopathy and supple General: Negative for tenderness Chest Wall Chest Narrative: Mid chest healing scar. Chest: Negative for tenderness Resp normal respiratory effort and normal air movement Effort and Inspection: symmetric chest movement; Negative for respiratory distress Cardio regular rhythm and no murmurs Rate: tachycardic Peripheral Pulses: pulses 2+ throughout GI normal to inspection, nondistended, normoactive bowel sounds and non-tender Palpation: Negative for guarding or rebound tenderness present Back/Spine no CVA tenderness and no thoracic nor lumbar tenderness Extremity normal to inspection General Extremety ED: Negative for edema or tenderness General Extremity: Negative for edema Neuro oriented x3 and no sensory deficits noted Sensorium / Orientation: awake and alert Skin no rashes or lesions noted and no wounds MDM MDM MDM Narrative Medical decision making narrative: Patient worsening dyspnea on exertion.. Differential pulmonary embolism heart failure, pericardial effusion, tamponade. Patient EKG sinus tachycardia no pulses paradoxus noted. He is not hypoxic. Postop exertional dyspnea. CTA PE rule out initiated with labs. In addition I performed a bedside ultrasound noted pericardial effusion. I did reach out to on-call felting machine operator Dr. Soliman with photo sent through backline he agrees with the findings for stat echocardiogram. We will pursue with PE rule out. Herecommended transfer as he is postop cardiac patient at [facility]. I reached out to [facility] transfer line for discussion as work-up is initiated. 1220: INR slightly subtherapeutic for his mechanical valve at 2.1. Hemoglobin 14.1 white count 11. Creatinine 1. Troponin 8. BNP elevated at 156. PE scan negative per radiology. Does report pericardial effusion. Pending formal echocardiogram with results at this time. We discussed with patient reporting he is walking to the bathroom significantly short of breath on return. 1440: Discussed with my felting machine operator Dr. Soliman who read the echocardiogram moderate pericardial effusion near severe. He states echo genic density in the fluid reports could be fibrogenic material however reported to me possible hemorrhagic component. Blood pressure remained stable reevaluation heart rate slight tachycardic to 100s. No current tamponade. However there is no CT surgeon here available for intervention if he decompensate. We called out to transfer line at [facility] for discussion for transfer. Edition spoke with imaging department to push his echocardiogram imaging up to [facility] for their evaluation. 1550: I spoke with cardiac team at [facility] Dr. Anglin, agrees he is an appropriate transfer up to their facility. Will await bed for transport. Patient family updated. Lab Data Attestation: I reviewed the patient's lab results. Labs: Laboratory Results - last 24 hr 08/25/22 08/25/22 08/25/22 10:35 10:35 10:35 WBC 11.0 RBC 4.91 Hgb 14.1 Hct 42.4 MCV 86.4 MCH 28.7 MCHC 33.3 RDW Std Deviation 41.0 RDW Coeff of Gamal 13.2 Plt Count 289 MPV 10.0 Immature Gran % (Auto) 0.400 Neut % (Auto) 67.3 Lymph % (Auto) 19.4 Worth % (Auto) 11.1 H Eos % (Auto) 1.3 Baso % (Auto) 0.5 Absolute Neuts (auto) 7.4 Absolute Lymphs (auto) 2.12 Nucleated RBC % 0 PT 23.4 H INR 2.1 APTT 37.8 H Sodium 142 Potassium 3.9 Chloride 107 Carbon Dioxide 27.0 Anion Gap 8 BUN 20 H Creatinine 1.00 Estim Creat Clear Calc 91.32 Est GFR (MDRD) Af Amer 103 Est GFR (MDRD) Non-Af 85 BUN/Creatinine Ratio 20.0 Glucose 146 H Calcium 9.4 Troponin I High Sens 8 B-Natriuretic Peptide 08/25/22 08/25/22 10:35 13:10 WBC RBC Hgb Hct MCV MCH MCHC RDW Std Deviation RDW Coeff of Gamal Plt Count MPV Immature Gran % (Auto) Neut % (Auto) Lymph % (Auto) Worth % (Auto) Eos % (Auto) Baso % (Auto) Absolute Neuts (auto) Absolute Lymphs (auto) Nucleated RBC % PT INR APTT Sodium Potassium Chloride Carbon Dioxide Anion Gap BUN Creatinine Estim Creat Clear Calc Est GFR (MDRD) Af Amer Est GFR (MDRD) Non-Af BUN/Creatinine Ratio Glucose Calcium Troponin I High Sens 8 B-Natriuretic Peptide 156.2 H Radiography Diagnostic Testing: Clinical Impression(s) from Imaging Studies Chest CTA 08/25/22 10:43 IMPRESSION: Status post mitral valve replacement. Pericardial effusion. No evidence of pulmonary embolism. Findings in comparison with bibasilar atelectasis. Electronically Signed: Lon Ibarra MD at 12:17 EST , Echocardiogram 08/25/22 11:09 Interpretation Summary The estimated ejection fraction is 65 %. No evidence for diastolic dysfunction. Stable appearing mechanical aortic valve apparatus. Moderate pericardial effusion. There are no echocardiographic indications of cardiac tamponade. Ordering Physician: Leodan Whyte Referring Physician: RAYSHAWN CORTES Performed By: Gwen Savage RDCS, RVT Initial EKG: Attestation: I personally reviewed and interpreted this EKG as follows: Comments: Sinus rate of 115, no ST changes T wave inversions in leads I and aVL. No signs of pulses paradoxus. Critical Care Time Critical Care Time: Yes Critical care time (excluding procedures): 30-74 minutes, Discussing w/Patient &/or Family/Metallographer, Discussing w/Consultants, Arranging Admission or Transfer, Performing Direct Patient Care at Bedside and - (40 minutes) Discharge Plan Triage Chief Complaint: Palpitations ED Provider: Leodan Whyte Dx/Rx/DC Orders Clinical Impression: Acute pericardial effusion, Chest pain, S/P aortic valve repair, Dyspnea on exertion, Sinus tachycardia Prescriptions: No Action aspirin 81 mg tablet,delayed release (DR/EC) 81 mg PO DAILY Qty: 1 0RF metoprolol succinate 100 mg tablet extended release 24 hr 100 mg PO BID lisinopril 10 mg tablet 10 mg PO DAILY warfarin 10 mg tablet 5 mg PO DAILY Rx Instructions: Managed by PCP acetaminophen 500 mg Tablet 1,000 mg PO Q6H PRN (Reason: Pain) Primary Care Provider: Rayshawn Cortes Referrals: Rayshwan Cortes MD [Primary Care Provider] - Disposition Disposition: DC/Tx to Another Type of HCF What to do if you have Problems For any increased pain, shortness of breath, bleeding, nausea or vomiting, chestpain, or any unexpected problems, contact your Primary Care Provider. Call [facility] ([phone]) or report to the closest Emergency Room. Call 911 if necessary. 08/25/22 1557 <Electronically signed by Leodan De Leon> Cosigner Signature (if applicable): CC: RAYSHAWN CORTES; Dr. Blayne Hayes MD ~ Signed [facility] Work Phone: 1(242) 380-100202-01-2023 Miscellaneous Notes* Telephone Encounter - Ct Camarena I, RN - 08/24/2022 3:58 PM EST [facility] Contact Center Inbound Phone Encounter DATE of SERVICE: 08/24/2022 TIME of SERVICE: 3:58 PM Status: FYI Service/Provider: Cardiac Surgery Andreia Bates M.D. Reason for call: Chest pain/angina Contact information: [phone] Resolution: Emergent referral to local ED Comments: calling in stating pt experience new onset of chest pain right below incisional area. Pain when taking deep breath in front area only, Taking tylenol. Incision clean and dry no signs of infection. Advised pt and that if he is having chest pain he needs to be evaluated and deferred them to nearest local ER. She is going to call local card and discuss with them. She will update CC Ct Camarena RN Date of Resolution: 08/24/2022 Time of Resolution 3:58 PM documented in this encounterSelect Medical [facility]01-06-2023 Miscellaneous Notes* Telephone Encounter - Joanna Costa RN - 07/29/2022 4:41 PM EST [facility] Contact Center Inbound Phone Encounter DATE of SERVICE: 07/29/2022 TIME of SERVICE: 4:41 PM Status: FYI Service/Provider: Cardiac Surgery Andreia Bates M.D. Reason for call: Swelling/Weight Gain Contact information: [phone] Resolution: Other Comments: The following email was received from [employer]: From: Amanda Britton <[email or web address]> Sent: Friday, July 29, 2022 4:36 PM To: HeartAimee < > Subject: [EXT] Urgent: Increase Bi-Lateral Swelling Elisabeth Pt stated he is experiencing increased swelling in his bi-lateral ankles and feet. Pt stated he wasnot elevating his feet yesterday (07/28/22) when he got home. Pt stated he is wearing his compressionstockings and is elevating more today. Pt stated he did not elevate yesterday (07/28/22). Pt stated his swelling has decreased today compared to yesterday (07/28/22), but not as good as compared to when he was discharged from the hospital. Patient Name: Lewis George : 1975 Phone #: [phone] Thank you, Amanda Britton RN [facility] Post Discharge Team I called this pt and he does attribute his swelling to not wearing his GARLAND hose or elevating his legs yesterday. He has not gained any weight and has some SOB with activity. He mentions after elevating legs and wearing TEDS the swelling has decreased. Pt is watching 2L FR and 2,000mg BRITT diet. We discussed when to call. Joanna Costa RN Date of Resolution: 07/29/2022 Time of Resolution 4:41 PM documented in this encounterSelect Medical [facility]01-06-2023 Miscellaneous Notes* Telephone Encounter - Amanda Britton RN - 07/29/2022 4:31 PM EST 1. Have you noticed any increased shortness of breath since you left the hospital? (HVI Red Flag Question) No 2. Have you noticed any increased swelling in your feet, ankles or belly? (Heart Failure Red Flag Question) Yes Pt stated he is experiencing increased swelling in his bi-lateral ankles and feet. Pt stated he wasnot elevating his feet yesterday (07/28/22) when he got home. Pt stated he is wearing his compressionstockings and is elevating more today. Pt stated he did not elevate yesterday (07/28/22). Pt stated his swelling has decreased today compared to yesterday (07/28/22), but not as good as compared to when he was discharged from the hospital. 3. Have you gained more than 2 - 3 pounds since discharge? (HVI Red Flag Question) No 4. Have you noticed any changes to your incision or wound since you were discharged as we want to be aware of any signs of infection? (HVI Red Flag Question) No 5. Are you having any increased pain since discharge? If Yes: What type of pain and where? (HVI RedFlag Question) No 6. Have you had any unplanned trips to the Emergency Department or Hospital since you were discharged? If yes: Why? (Heart Failure Red Flag Question) No 7. Do you have any questions about how to take your medications? (Standard Question) No 8. Have you filled your prescriptions [if no-why? If related to cost - Do you need to be connected to someone who can help you with the cost?] Reminder: Please bring in your medications at your follow up appointment. (HVI Red Flag Question) Yes 9. Do you have a doctor s appointment scheduled or is someone working on getting you a follow-up appointment? (Standard Question) Yes Overall Comments: Urgent: Increase Bi-Lateral Swelling. Closing statement given. Email sent to heart center. PD nurse confirmed/verified patient's and full name. Amanda Britton RN documented in this encounterSelect Medical [facility]health [facility]01-05-2023 [facility]01-04-2023 [facility]01-04-2023 [facility]01-03-2023 [facility]01-02-2023 Note [facility]-2023 [facility]12-31-2022 [facility]12-30-2022 [facility] 07-22-2022 [facility]12-29-2022 [facility]12-28-2022 History of Past illness Narrative* Problem Noted Date Resolved Date Atelectasis 07/20/2022 07/23/2022 Overview: History: Postop Assessment: Bibasilar on postop CXR. Stable O/V on RA. Plan: Continue BPH, OOB, Pep. . Fluid overload 07/20/2022 07/22/2022 Overview: History: Postop Assessment: Wt up 1.5 kg from pre op Plan: Continue diuresis On mechanically assisted ventilation 07/19/2022 07/20/2022 Overview: History: Postop Assessment: Grade IIa - Alegria Plan: WTE once clinically indicated Hypotension 07/19/2022 07/20/2022 Overview: History: Postop Assessment: Arrived on Levophed infusion Plan: Titrate to MAP goal 65-75 Hypovolemia 07/19/2022 07/20/2022 Overview: History: Postop Assessment: Postop fluid shifts Plan: IVF resuscitation as indicated. Stress hyperglycemia 07/19/2022 07/22/2022 Overview: History: No Hx of DM Assessment: BG controlled Plan: SSI for glycemic control. documented as of this encounter (statuses as of 07/28/2022) [facility]12[facility]28-[facility] History of Past illness Narrative* Problem Noted Date Resolved Date Atelectasis 07/20/2022 07/23/2022 Overview: History: Postop Assessment: Bibasilar on postop CXR. Stable O/V on RA. Plan: Continue BPH, OOB, Pep. . Fluid overload 07/20/2022 07/22/2022 Overview: History: Postop Assessment: Wt up 1.5 kg from pre op Plan: Continue diuresis On mechanically assisted ventilation 07/19/2022 07/20/2022 Overview: History: Postop Assessment: Grade IIa - Alegria Plan: WTE once clinically indicated Hypotension 07/19/2022 07/20/2022 Overview: History: Postop Assessment: Arrived on Levophed infusion Plan: Titrate to MAP goal 65-75 Hypovolemia 07/19/2022 07/20/2022 Overview: History: Postop Assessment: Postop fluid shifts Plan: IVF resuscitation as indicated. Stress hyperglycemia 07/19/2022 07/22/2022 Overview: History: No Hx of DM Assessment: BG controlled Plan: SSI for glycemic control. documented as of this encounter (statuses as of 07/30/2022) [facility]12-28-[facility]22 History of Past illness Narrative* Problem Noted Date Resolved Date Atelectasis 07/20/2022 07/23/2022 Overview: History: Postop Assessment: Bibasilar on postop CXR. Stable O/V on RA. Plan: Continue BPH, OOB, Pep. . Fluid overload 07/20/2022 07/22/2022 Overview: History: Postop Assessment: Wt up 1.5 kg from pre op Plan: Continue diuresis On mechanically assisted ventilation 07/19/2022 07/20/2022 Overview: History: Postop Assessment: Grade IIa - Alegria Plan: WTE once clinically indicated Hypotension 07/19/2022 07/20/2022 Overview: History: Postop Assessment: Arrived on Levophed infusion Plan: Titrate to MAP goal 65-75 Hypovolemia 07/19/2022 07/20/2022 Overview: History: Postop Assessment: Postop fluid shifts Plan: IVF resuscitation as indicated. Stress hyperglycemia 07/19/2022 07/22/2022 Overview: History: No Hx of DM Assessment: BG controlled Plan: SSI for glycemic control. documented as of this encounter (statuses as of 08/24/2022) [facility]12-28-[facility] History of Past illness Narrative* Problem Noted Date Resolved Date Atelectasis 07/20/2022 07/23/2022 Overview: History: Postop Assessment: Bibasilar on postop CXR. Stable O/V on RA. Plan: Continue BPH, OOB, Pep. . Fluid overload 07/20/2022 07/22/2022 Overview: History: Postop Assessment: Wt up 1.5 kg from pre op Plan: Continue diuresis On mechanically assisted ventilation 07/19/2022 07/20/2022 Overview: History: Postop Assessment: Grade IIa - Alegria Plan: WTE once clinically indicated Hypotension 07/19/2022 07/20/2022 Overview: History: Postop Assessment: Arrived on Levophed infusion Plan: Titrate to MAP goal 65-75 Postoperative pain 07/19/2022 08/26/2022 Overview: History: Pt reports no recent chronic pain or use of chronic pain medications. Assessment: Pt reports pain is controlled with PO pain meds. Avoiding narcotics. Plan: Continue Tylenol PRN. Continue Oxycodone PRN. Continue Ultram PRN. Lido patches Hypovolemia 07/19/2022 07/20/2022 Overview: History: Postop Assessment: Postop fluid shifts Plan: IVF resuscitation as indicated. Stress hyperglycemia 07/19/2022 07/22/2022 Overview: History: No Hx of DM Assessment: BG controlled Plan: SSI for glycemic control. Pre-op testing 07/12/2022 08/26/2022 Overview: [facility] Surgeon: Andreia Bates MD Intended procedure: AVR Informed Consent Completed: Yes STS Score: REDO:No CAD: No Is intended procedure a CABG: No - is a beta eric ordered? No - reason: N/I H & P completed: Yes PA/LAT: N/A CT: Completed MRI: N/A LE US: N/A Cath: Yes - reviewed: Yes EKG: Completed Is patient on Amiodarone? No Echo:Completed EF %: 68 PI's: N/A Carotid: N/A Mapping: N/A Dental: Cleared PFT's: Completed Recent Labs 07/11/22 1235 WBC 7.69 HB 15.2 HCT 44.5 PLT 244 INR 1.0 CREAT 0.86 UA: Normal HCG:N/A ABO/ABO Confirmed: Yes Blood ordered: No Willing to accept blood: Yes SA Swab: Yes - results: Ref Range & Units 1 d ago Staph aureus PCR Negative Positive for Staphylococcus aureus by PCR. Abnormal MRSA PCR Negative Negative for MRSA by PCR Patient contacted and reinforced teaching on Bactroban use Last Dose of Anticoagulation: Anticoagulant & Antiplatelet Medications Patient Encounter Information Not Found Op Note: No Pacer Check: NA Implants: no DOMINANT HAND: right Consults: DM: No Cardiac Surgical prep: No SIGNATURE: Rina Aguilera RN DATE of SERVICE: 07/12/2022 TIME of SERVICE: 7:55 AM CHECKED BY: HM documented as of this encounter (statuses as of 08/30/2022) [facility]12-28-[facility] History of Past illness Narrative* Problem Noted Date Resolved Date Atelectasis 07/20/2022 07/23/2022 Overview: History: Postop Assessment: Bibasilar on postop CXR. Stable O/V on RA. Plan: Continue BPH, OOB, Pep. . Fluid overload 07/20/2022 07/22/2022 Overview: History: Postop Assessment: Wt up 1.5 kg from pre op Plan: Continue diuresis On mechanically assisted ventilation 07/19/2022 07/20/2022 Overview: History: Postop Assessment: Grade IIa - Alegria Plan: WTE once clinically indicated Hypotension 07/19/2022 07/20/2022 Overview: History: Postop Assessment: Arrived on Levophed infusion Plan: Titrate to MAP goal 65-75 Postoperative pain 07/19/2022 08/26/2022 Overview: History: Pt reports no recent chronic pain or use of chronic pain medications. Assessment: Pt reports pain is controlled with PO pain meds. Avoiding narcotics. Plan: Continue Tylenol PRN. Continue Oxycodone PRN. Continue Ultram PRN. Lido patches Hypovolemia 07/19/2022 07/20/2022 Overview: History: Postop Assessment: Postop fluid shifts Plan: IVF resuscitation as indicated. Stress hyperglycemia 07/19/2022 07/22/2022 Overview: History: No Hx of DM Assessment: BG controlled Plan: SSI for glycemic control. Pre-op testing 07/12/2022 08/26/2022 Overview: [facility] Surgeon: Andreia Bates MD Intended procedure: AVR Informed Consent Completed: Yes STS Score: REDO:No CAD: No Is intended procedure a CABG: No - is a beta eric ordered? No - reason: N/I H & P completed: Yes PA/LAT: N/A CT: Completed MRI: N/A LE US: N/A Cath: Yes - reviewed: Yes EKG: Completed Is patient on Amiodarone? No Echo:Completed EF %: 68 PI's: N/A Carotid: N/A Mapping: N/A Dental: Cleared PFT's: Completed Recent Labs 07/11/22 1235 WBC 7.69 HB 15.2 HCT 44.5 PLT 244 INR 1.0 CREAT 0.86 UA: Normal HCG:N/A ABO/ABO Confirmed: Yes Blood ordered: No Willing to accept blood: Yes SA Swab: Yes - results: Ref Range & Units 1 d ago Staph aureus PCR Negative Positive for Staphylococcus aureus by PCR. Abnormal MRSA PCR Negative Negative for MRSA by PCR Patient contacted and reinforced teaching on Bactroban use Last Dose of Anticoagulation: Anticoagulant & Antiplatelet Medications Patient Encounter Information Not Found Op Note: No Pacer Check: NA Implants: no DOMINANT HAND: right Consults: DM: No Cardiac Surgical prep: No SIGNATURE: Rina Aguilera RN DATE of SERVICE: 07/12/2022 TIME of SERVICE: 7:55 AM CHECKED BY: HM documented as of this encounter (statuses as of 09/02/2022) [facility]12-28-[facility] History of Past illness Narrative* Problem Noted Date Resolved Date Atelectasis 07/20/2022 07/23/2022 Overview: History: Postop Assessment: Bibasilar on postop CXR. Stable O/V on RA. Plan: Continue BPH, OOB, Pep. . Fluid overload 07/20/2022 07/22/2022 Overview: History: Postop Assessment: Wt up 1.5 kg from pre op Plan: Continue diuresis On mechanically assisted ventilation 07/19/2022 07/20/2022 Overview: History: Postop Assessment: Grade IIa - Alegria Plan: WTE once clinically indicated Hypotension 07/19/2022 07/20/2022 Overview: History: Postop Assessment: Arrived on Levophed infusion Plan: Titrate to MAP goal 65-75 Postoperative pain 07/19/2022 08/26/2022 Overview: History: Pt reports no recent chronic pain or use of chronic pain medications. Assessment: Pt reports pain is controlled with PO pain meds. Avoiding narcotics. Plan: Continue Tylenol PRN. Continue Oxycodone PRN. Continue Ultram PRN. Lido patches Hypovolemia 07/19/2022 07/20/2022 Overview: History: Postop Assessment: Postop fluid shifts Plan: IVF resuscitation as indicated. Stress hyperglycemia 07/19/2022 07/22/2022 Overview: History: No Hx of DM Assessment: BG controlled Plan: SSI for glycemic control. Pre-op testing 07/12/2022 08/26/2022 Overview: [facility] Surgeon: Andreia Bates MD Intended procedure: AVR Informed Consent Completed: Yes STS Score: REDO:No CAD: No Is intended procedure a CABG: No - is a beta eric ordered? No - reason: N/I H & P completed: Yes PA/LAT: N/A CT: Completed MRI: N/A LE US: N/A Cath: Yes - reviewed: Yes EKG: Completed Is patient on Amiodarone? No Echo:Completed EF %: 68 PI's: N/A Carotid: N/A Mapping: N/A Dental: Cleared PFT's: Completed Recent Labs 07/11/22 1235 WBC 7.69 HB 15.2 HCT 44.5 PLT 244 INR 1.0 CREAT 0.86 UA: Normal HCG:N/A ABO/ABO Confirmed: Yes Blood ordered: No Willing to accept blood: Yes SA Swab: Yes - results: Ref Range & Units 1 d ago Staph aureus PCR Negative Positive for Staphylococcus aureus by PCR. Abnormal MRSA PCR Negative Negative for MRSA by PCR Patient contacted and reinforced teaching on Bactroban use Last Dose of Anticoagulation: Anticoagulant & Antiplatelet Medications Patient Encounter Information Not Found Op Note: No Pacer Check: NA Implants: no DOMINANT HAND: right Consults: DM: No Cardiac Surgical prep: No SIGNATURE: Rina Aguilera RN DATE of SERVICE: 07/12/2022 TIME of SERVICE: 7:55 AM CHECKED BY: NANCY documented as of this encounter (statuses as of 09/08/2022) [facility]12-28-[facility] History of Past illness Narrative* Problem Noted Date Resolved Date Atelectasis 07/20/2022 07/23/2022 Overview: History: Postop Assessment: Bibasilar on postop CXR. Stable O/V on RA. Plan: Continue BPH, OOB, Pep. . Fluid overload 07/20/2022 07/22/2022 Overview: History: Postop Assessment: Wt up 1.5 kg from pre op Plan: Continue diuresis On mechanically assisted ventilation 07/19/2022 07/20/2022 Overview: History: Postop Assessment: Grade IIa - Alegria Plan: WTE once clinically indicated Hypotension 07/19/2022 07/20/2022 Overview: History: Postop Assessment: Arrived on Levophed infusion Plan: Titrate to MAP goal 65-75 Postoperative pain 07/19/2022 08/26/2022 Overview: History: Pt reports no recent chronic pain or use of chronic pain medications. Assessment: Pt reports pain is controlled with PO pain meds. Avoiding narcotics. Plan: Continue Tylenol PRN. Continue Oxycodone PRN. Continue Ultram PRN. Lido patches Hypovolemia 07/19/2022 07/20/2022 Overview: History: Postop Assessment: Postop fluid shifts Plan: IVF resuscitation as indicated. Stress hyperglycemia 07/19/2022 07/22/2022 Overview: History: No Hx of DM Assessment: BG controlled Plan: SSI for glycemic control. Pre-op testing 07/12/2022 08/26/2022 Overview: [facility] Surgeon: Andreia Bates MD Intended procedure: AVR Informed Consent Completed: Yes STS Score: REDO:No CAD: No Is intended procedure a CABG: No - is a beta eric ordered? No - reason: N/I H & P completed: Yes PA/LAT: N/A CT: Completed MRI: N/A LE US: N/A Cath: Yes - reviewed: Yes EKG: Completed Is patient on Amiodarone? No Echo:Completed EF %: 68 PI's: N/A Carotid: N/A Mapping: N/A Dental: Cleared PFT's: Completed Recent Labs 07/11/22 1235 WBC 7.69 HB 15.2 HCT 44.5 PLT 244 INR 1.0 CREAT 0.86 UA: Normal HCG:N/A ABO/ABO Confirmed: Yes Blood ordered: No Willing to accept blood: Yes SA Swab: Yes - results: Ref Range & Units 1 d ago Staph aureus PCR Negative Positive for Staphylococcus aureus by PCR. Abnormal MRSA PCR Negative Negative for MRSA by PCR Patient contacted and reinforced teaching on Bactroban use Last Dose of Anticoagulation: Anticoagulant & Antiplatelet Medications Patient Encounter Information Not Found Op Note: No Pacer Check: NA Implants: no DOMINANT HAND: right Consults: DM: No Cardiac Surgical prep: No SIGNATURE: Rina Aguilera RN DATE of SERVICE: 07/12/2022 TIME of SERVICE: 7:55 AM CHECKED BY: documented as of this encounter (statuses as of 09/30/2022) [facility] History of Present illness Narrative* Andreia Bates MD - 07/12/2022 1:15 PM EST Consult to determine surgery. This patient is seen in consult for cardiovascular disease. I have reviewed the medical history andrecords. Impression: Severe bicupid as, some copd, bmi 41, Based on my evaluation if this patient undergoes surgery the risk of is 1% Plan: Evaluation for potential surgery. I spent more than 50% of the visit face to face counseling the patient on the plan and treatment options. The total time of the face to face visit was approximately 20 minutes. The risks, benefits and anticipated outcomes of a potential procedure versus medical management were reviewed. Discussed the potential for two patients undergoing surgery in two separate rooms (concurrent surgery) but I would be putting the patient on the heart lung machine and taking them off. Discussed that in an emergency a qualified backup surgeon is available and in the rare event of a serious situation, one of my colleagues would also be able to take over. Andreia Bates MD, PhD [facility] History of Present illness Narrative* Stan Aviles MD - 07/12/2022 12:04 PM EST Cardiothoracic Anesthesiology Preoperative Assessment Service Date: 07/12/2022 Service Time: 12:04 PM Primary Care Physician: Rayshawn Cortes MD Subjective Scheduled procedure: Aortic valve surgery Surgeon: Andreia Bates Scheduled date: 07/19/2022 HPI: 46 yo M w/ HTN, Bicuspid Aortic valve, and presenting for SAVR with Dr. Bates. Review no known heparin intolerance anticoagulant/antiplatelet medication(s) - Patient is taking anticoagulant and/or antiplatelet medication with plans of stopping medication no non-cardiac IEDs present no known esophageal disorders blood transfusion consented - COVID-19 Immunization Status Overdue - COVID-19 VACCINE (1) Overdue - never done No completion, postpone, frequency change, or communication history exists for this topic. The patient has the following: ACTIVE PROBLEM LIST Discharge Planning Issues Pre-Op Testing Essential Hypertension Asthma Morbid Obesity (Hcc) Severe Aortic Valve Stenosis Bicuspid Aortic Valve History of Covid-19 PAST MEDICAL HISTORY Diagnosis Date Aortic stenosis Ascending aorta dilation (HCC) Bicuspid aortic valve COVID-19 2020 HTN (hypertension) CARMEL (obstructive sleep apnea) PAST SURGICAL HISTORY Procedure Laterality Date PAST SURGICAL HISTORY OF Bilateral carpel tunnel PAST SURGICAL HISTORY OF deviated septum repair FAMILY HISTORY Problem Relation Age of Onset Coronary Artery Disease Father CABG x 4 Hypertension Father Hypertension Maternal Grandmother Arthritis Paternal Grandmother Social History Tobacco Use Smoking status: Never Smokeless tobacco: Never Substance Use Topics Alcohol use: Never Drug use: Never Prior to Admission medications as of 07/12/22 1038 Medication Sig Last Dose Taking lisinopril (ZESTRIL, PRINIVIL) 40 mg tablet Take 1 tablet by mouth once daily. aspirin, enteric coated (ASPIRIN, ENTERIC COATED) 81 mg EC tablet Take 81 mg by mouth once daily. Cholecalciferol, Vitamin D3, 125 mcg (5,000 unit) cap Take 125 mcg by mouth once daily. fexofenadine (DORI ALLERGY) 180 mg tablet Take 180 mg by mouth once daily. mupirocin (BACTROBAN) 2 % ointment Apply a small amount in each nostril using a cotton swab twice the day before surgery and once the morning of surgery. No medication comments found. ALLERGIES No Known Allergies Objective Pain Assessment: Vitals: There were no vitals taken for this visit. Diagnostic tests reviewed for today's visit: Lab Value Units Date High Low HB 15.2 g/dL 07/11/2022 17.0 13.0 HCT 44.5 % 07/11/2022 51.0 39.0 WBC 7.69 k/uL 07/11/2022 11.00 3.70 PLT 244 k/uL 07/11/2022 400 150 NA 142 mmol/L 07/11/2022 144 136 K 5.1 mmol/L 07/11/2022 5.1 3.7 GLUC 102 mg/dL 07/11/2022 99 74 BUN 15 mg/dL 07/11/2022 24 9 CREAT 0.86 mg/dL 07/11/2022 1.22 0.73 PTSEC 10.3 sec 07/11/2022 13.0 9.7 INR 1.0 no uni* 07/11/2022 1.3 0.9 APTT 26.9 sec 07/11/2022 32.4 23.0 ALT 34 U/L 07/11/2022 54 10 AST 22 U/L 07/11/2022 40 14 TBILI 0.4 mg/dL 07/11/2022 1.3 0.2 TSH No results within date range. Lab Value Units Date High Low HCGQT No results within date range. UHCG No results within date range. HCG, BODY* No results within date range. Lab Value Units Date High Low ABORHD No results within date range. ABSCREEN No results within date range. No results found for: HBA1C Recent Results (from the past 8760 hour(s)) ECHO Collection Time: 07/11/22 2:52 PM Impression CONCLUSIONS: - Exam indication: BAV - The left ventricle is normal in size. There is concentric left ventricular hypertrophy. Left ventricular systolic function is normal. EF = 68 5% (2D biplane) Indeterminate left ventricular diastolic dysfunction due to inconsistent or technically suboptimal data. - The right ventricle is normal in size. Right ventricular systolic function is normal. - The visualized aorta is dilated with a maximal dimension of 4.0 cm. - There is calcification of the aortomitral curtain. - Bicuspid aortic valve. There is no aortic valve regurgitation. There is severe aortic valve stenosis caused by calcified valve and restricted opening. AV area is 0.79 cm (0.32 cm /m ) by continuity, VTI. The peak gradient is 97 mmHg, the mean gradient is 60 mmHg and the dimensionless valve index is 0.26. DI: .26. -Mild chordal ARTIS. At rest (85 bpm) there is a late peak intracavitary gradient of 9 mmHg. Following valsalva (93 bpm), there is a marginal increase to 19 mmHg. No evidence of LVOT obstruction. - The patient has not had a prior CC echocardiographic exam for comparison. * * * Final * * * CTA CHEST (GATED) W IVCON Collection Time: 07/11/22 1:16 PM Impression IMPRESSION: 1. Severely calcified bicuspid aortic valve. Extension of column of calcification inferior to left coronary cusp along the aortic mitral curtain. 2. Mild ectasia of the ascending thoracic aorta (mid 4.1 cm). No significant thoracic aortic atherosclerosis. Credit Historian: PSCB Transcribe Date/Time: Jul 11 2022 1:42P Dictated by : BLAYNE SANCHEZ MD This examination was interpreted and the report reviewed and electronically signed by: BLAYNE SANCHEZ MD on Jul 11 2022 1:54PM EST ECG COMPLETE Collection Time: 07/11/22 11:42 AM Impression NORMAL SINUS RHYTHM LATERAL T WAVE ABNORMALITY ABNORMAL ECG Assessment No problem-specific Assessment & Plan notes found for this encounter. ANESTHESIA FINDINGS: Intubation History: No history of difficult intubation. No abnormal airway history Significant Anesthesia Considerations: none Airway History: No history of difficult airway No abnormal airway history Prepared for Surgery: optimally prepared for surgery. The Following Tests/Procedures Have Been Initiated: Orders Placed This Encounter DISCONTD: mupirocin (BACTROBAN) 2 % ointment Sig: Apply a small amount in each nostril using a cotton swab twice the day before surgery and oncethe morning of surgery. Dispense: 22 g Refill: 0 Order Comments: Supply patient with Q-tips and instruction sheet mupirocin (BACTROBAN) 2 % ointment Sig: Apply a small amount in each nostril using a cotton swab twice the day before surgery and oncethe morning of surgery. Dispense: 22 g Refill: 0 Order Comments: Supply patient with Q-tips and instruction sheet ASA Class: 4 Planned Anesthetic: general I - PHYSICAL EVALUATION AIRWAY Patient intubated: No. Tracheostomy tube not present Mallampati: II. TM distance: >3 FB. Neck ROM: full ROM without neurological symptoms. Mouth opening: adequate. Short neck: no. Thick neck: yes Pina present: no DENTAL Normal dental observations. Dental findings: teeth intact. II - ANESTHESIA PLAN ASA Score: 4 Anesthetic Plan: general Airway type: ETT Beta Eric Monitoring Plan Post Procedure Analgesic Plan Informed Consent Anesthetic risks, benefits, alternatives, personnel and consent discussed: yes. Patient / Responsible Green Party agrees to proceed: yes Patient / Surrogate agrees to blood products: Yes Instructions Given to Patient: Instructions located in the after visit summary. Patient given verbal and written preop instructions and voices comprehension and compliance. Signature: Stan Aviles MD Patient Name: Lewis George Date: July 12, 2022 Time: 12:04 PM Pager/Contact #: documented in this encounterSelect [facility] History of Present illness Narrative* Rina Aguilera RN - 07/12/2022 11:39 AM EST AMBULATORY PATIENT EDUCATION READINESS TO LEARN Cognitive Ability: Alert and oriented Motivation To Learn: Interested Family Support: High - Very involved in pt care Instruction Provided To: Patient & Family Patient Learns Best By: Multiple Methods Factors Affecting Learning: None Physical Limitations Affecting Learning: None LEARNING RESPONSE Diagnosis: Education Topic: Pre-Op Open Heart Surgery Instructions Teaching Points: Logistics / Protocols /Complication Prevention How prepared do you feel you are for this visit: 6 Instruction/Supplemental Materials: Cardiac Surgery Information Binder Individual Instruction Patient/Family Response: Well prepared Follow up plan: Patient/Family to call [facility] with any further questions Referral (Recommendation): None Teach completed, topic: Patient provided with Cardiac Surgery binder and reviewed. Patient educatedon pre-operative instructions and advised to call [facility] with any further questions documented in this encounterSelect [facility] History of Present illness Narrative* Rina Aguilera RN - 07/12/2022 10:39 AM EST CHART COPY-DO NOT DISCARD CARDIOVASCULAR SURGERY PRE-OPERATIVE ASSESSMENT NAME: Lewis George Alert Notes: DATE: 07/12/2022 SEX: male : 1975 AGE: [age] year old Estimated body mass index is 41.05 kg/m as calculated from the following: Height as of an earlier encounter on 07/12/22: 175.3 cm (5' 9). Weight as of an earlier encounter on 07/12/22: 126.1 kg (278 lb). STS Score Surgeon: Andreia Bates MD Intended procedure: AVR Patient scheduled for surgery on: 07/19/2022 [facility] MD: Hira Combs MD REDO: No CHIEF COMPLAINT: Pre-Op Open Heart Surgery MEDICATIONS: Current Outpatient Medications Medication Sig lisinopril (ZESTRIL, PRINIVIL) 40 mg tablet Take 1 tablet by mouth once daily. aspirin, enteric coated (ASPIRIN, ENTERIC COATED) 81 mg EC tablet Take 81 mg by mouth once daily. Cholecalciferol, Vitamin D3, 125 mcg (5,000 unit) cap Take 125 mcg by mouth once daily. fexofenadine (DORI ALLERGY) 180 mg tablet Take 180 mg by mouth once daily. mupirocin (BACTROBAN) 2 % ointment Apply a small amount in each nostril using a cotton swab twice the day before surgery and once the morning of surgery. No current facility-administered medications for this visit. ALLERGIES: ALLERGIES No Known Allergies LATEX ALLERGY: No FOOD SENSITIVITIES: No ANTICOAGULANTS: ASA 81 last dose 07/14 STEROIDS: >1 year - prednisone taper approximately 1 year ago for COVID c/b pneumonia HISTORIES: FAMILY HISTORY Problem Relation Age of Onset Coronary Artery Disease Father CABG x 4 Hypertension Father Hypertension Maternal Grandmother Arthritis Paternal Grandmother PAST MEDICAL HISTORY Diagnosis Date Aortic stenosis Ascending aorta dilation (HCC) Bicuspid aortic valve COVID-2020 HTN (hypertension) CARMEL (obstructive sleep apnea) PAST SURGICAL HISTORY Procedure Laterality Date PAST SURGICAL HISTORY OF Bilateral carpel tunnel PAST SURGICAL HISTORY OF deviated septum repair Social History Tobacco Use Smoking status: Never Smokeless tobacco: Never Substance Use Topics Alcohol use: Never Drug use: Never REVIEW OF SYSTEMS: GEN: Fatigue over the last year and gradually increasing - can still complete all ADLs and 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 stopped all recreational activity due to exercise intolerance and dyspnea HEENT: Glasses, Sinusitis r/t allergies and small children in school, deviated septum s/p rhinoplasty DERM: Denies Dermatological Complaints 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: Dizziness occasionally with positional changes, s/p bilateral carpal tunnel release RESP: Asthma allergy induced, Dyspnea with mild to moderate exertion, Pneumonia r/t COVID [id number], Sleep Apnea intolerant of CPAP CARD: Angina stable lasting approximately 1-2 minutes and resolving with rest and deep breathing that feels like someone is punching me in the chest rated at 8/10 pain scale, HTN , Valvular Heart Disease BAV/ GI: Liver Disease hepatic steatosis, GI bleed r/t anal fissure : Denies complaints ENDO: Denies Endocrine Complaints HEME: Denies Hematological complaints MUSC/SKEL: Low Back Pain with sciatic nerve involvement PVD: Denies PVD Varicose Veins: No BRUITS (Carotid): No PULSES: Pedal Left 2 Right 2 NYHA CLASSIFICATION: Class 1 FAMILY HISTORY OF CAD: Yes father ? PERFUSION INDEX: DOMINANT HAND: right-handed Pacer Check: NA CARDIAC EVALUATION: Cardiac Cath: Date - 06/21/2022 Ultrasound: Date - PFT: Date - 07/11/2022 ECHO: Last ECHO Result Conclusion ECHO Collected: 07/11/2022 2:52 PM (Final result) Impression: CONCLUSIONS: - Exam indication: BAV - The left ventricle is normal in size. There is concentric left ventricular hypertrophy. Left ventricular systolic function is normal. EF = 68 5% (2D biplane) Indeterminate left ventricular diastolic dysfunction due to inconsistent or technically suboptimal data. - The right ventricle is normal in size. Right ventricular systolic function is normal. - The visualized aorta is dilated with a maximal dimension of 4.0 cm. - There is calcification of the aortomitral curtain. - Bicuspid aortic valve. There is no aortic valve regurgitation. There is severe aortic valve stenosis caused by calcified valve and restricted opening. AV area is 0.79 cm (0.32 cm /m ) by continuity, VTI. The peak gradient is 97 mmHg, the mean gradient is 60 mmHg and the dimensionless valve index is 0.26. DI: .26. -Mild chordal ARTIS. At rest (85 bpm) there is a late peak intracavitary gradient of 9 mmHg. Following valsalva (93 bpm), there is a marginal increase to 19 mmHg. No evidence of LVOT obstruction. - The patient has not had a prior CC echocardiographic exam for comparison. * * * Final * * * CT Scan: Last CT Result Conclusion CTA CHEST (GATED) W IVCON Exam End: 07/11/2022 1:16 PM (Final result) Impression: IMPRESSION: 1. Severely calcified bicuspid aortic valve. Extension of column of calcification inferior to left coronary cusp along the aortic mitral curtain. 2. Mild ectasia of the ascending thoracic aorta (mid 4.1 cm). No significant thoracic aortic atherosclerosis. Credit Historian: NEYMAR Transcribe Date/Time: Jul 11 2022 1:42P Dictated by : BLAYNE SANCHEZ MD This examination was interpreted and the report reviewed and electronically signed by: BLAYNE SANCHEZ MD on Jul 11 2022 1:54PM EST MRI: CXR: No results found. EK07/11/2022 Dental: Cleared ? Recent Labs 07/11/22 1235 WBC 7.69 HB 15.2 HCT 44.5 PLT 244 INR 1.0 APTT 26.9 PTSEC 10.3 NA 142 K 5.1 BUN 15 CREAT 0.86 Pre Op Instructions per protocol reviewed and handout given to patient . Patient Education completed and documented. Instructed to start Bactroban per protocol. Emotional support provided to patient and family. All questions and concerns adressed. Signature: Rina Aguilera RN See Cardiology History and Physical dated 07/12/2022 documented in this encounterSelect [facility]2022 [facility] NoteHNO ID: [id number] Author: Meg Lovett RRT Service: ? Author Type: Registered Resp Therapist Type: Progress Notes Filed: 07/11/2022 2:04 PM Note Text: PULM FUNCTION SMARTBLOCK: Provider: Andreia Bates MD Spirometry: 1 [facility] History of Present illness Narrative* Meg Lovett RRT - 07/11/2022 2:04 PM EST PULM FUNCTION SMARTBLOCK: Provider: Andreia Bates MD Spirometry: 1 DLCO: 1 documented in this encounterSelect Medical [facility]12-19-2022 History of Present illness Narrative* Jaclyn Monsalve RN - 07/11/2022 1:30 PM EST Radiology Service Progress Note DATE OF SERVICE: July 11, 2022 TIME: 12:55 PM PATIENT WEIGHT: 282 LBS PATIENT IDENTITY VERIFICATION COMPLETED USING TWO (2) STANDARD IDENTIFIERS: Name and Date of confirmed by patient verbally. FALL SCREENING: Has the patient had 2 falls in the last year or 1 fall with injury or currently using an Ambulatory Assistive Device (Walker, Cane, Wheelchair, Crutches, etc.)? No PATIENT GENDER DATA: Male ALLERGIES: Reviewed and unchanged CONTRAST ALLERGY: No EXAM: CT -CONTRAST INDUCED NEPHROPATHY RISK FACTORS: Not applicable CREATININE: No results found for: CREAT, EGFROTH, EGFRAA P.O.C.T. RESULTS: N/A July 11, 2022 TREATMENT: N/A IV SITE: Ambulatory: A peripheral IV was started in the Right forearm with a Angio cath: 20 gauge. and A Saline lock was inserted per protocol IV SITE APPEARANCE: Clean,Dry and Intact SIGNATURE: Jaclyn Monsalve RN PATIENT NAME: Lewis George DATE: July 11, 2022 TIME: 12:55 PM * RT Vivek(R) - 07/11/2022 1:30 PM EST Radiology Service Progress Note PATIENT NAME: Lewis George DATE OF SERVICE: July 11, 2022 TIME: 1:09 PM PATIENT IDENTITY VERIFICATION COMPLETED USING TWO (2) IDENTIFIERS: Name and Date of confirmedby patient verbally and Name and Date of confirmed by identification band. FALL SCREENING: Has the patient had 2 falls in the last year or 1 fall with injury or currently using an Ambulatory Assistive Device (Walker, Cane, Wheelchair, Crutches, etc.)? No PATIENT GENDER DATA: Male PATIENT RELEVANT IMPLANT DATA REVIEWED: Yes RADIOLOGY DEPARTMENT: CT; Exam(s) Completed: Cardiac PERIPHERAL IV DATA: Site assessment: Clean,Dry and Intact, Site disposition Discontinued SIGNED BY: RT Vivek(R) July 11, 2022 1:09 PM documented in this encounterSelect Medical [facility]12-19-2022 History of Present illness Narrative* Gloria Smith, DMD - 07/11/2022 12:29 PM EST Images from the original note were not included. Head and Neck [facility] CHIEF COMPLAINT: Dental clearance HISTORY OF PRESENT ILLNESS: Lewis George is a 46 year old male being seen for dental consultation at the request of Dr. Zakiya Bates prior to open-heart surgery. The patient's last dental visit was 5 year(s) ago. Pain:He denies odontalgia today. PROBLEM LIST: There is no problem list on file for this patient. CURRENT MEDICATIONS: No current outpatient medications on file prior to visit. No current facility-administered medications on file prior to visit. ALLERGIES: ALLERGIES Not on File CLINICAL EXAMINATION: General appearance: alert, pleasant, no distress, cooperative. Extraoral, Head and Neck exam: No extraoral swelling or erythema Parotid and submandibular glands soft, nonpainful to palpation bilaterally No lymphadenopathy V1, V2, V3, CN VII intact bilaterally Intraoral Soft Tissues: Clear saliva extruded from bilateral Juab's and Asha's ducts. Tongue soft and non-tender with no apparent lesions. Buccal mucosa without lesions bilaterally. Hard palate is WNL. Soft palate is WNL. Pharynx is WNL. Floor of mouth is WNL. Gingival tissues are generally within normal limits with localized erythema mandibular teeth associated with calculus buildup. Dentition: Caries:None Retained root tips: None Pain to percussion: None Mobility: None Oral hygiene: fair. Radiographic examination: panoramic Normal trabecular and cortical bone pattern. No apical radiolucencies noted. ASSESSMENT: The oral cavity and dentition were examined and found to be without signs of acute odontogenic infection. There is low risk of perioperative dental complication with this patient. RECOMMENDATIONS: The patient is at low risk of perioperative complication from an oral health standpoint. Recommended extractions: None Recommended debridement prior to surgery/transplant/head & neck radiation: yes if time permits The procedure including risks, benefits, options and personnel performing the procedure was discussed with the patient. Lewis George expressed understanding and agreed to proceed. The opinions rendered will be communicated back to the referring provider via shared electronic medical record. Gloria Smith DMD documented in this encounterSelect Medical [facility]12-09-2022 Miscellaneous Notes* Telephone Encounter - Conchis Garcianey - 07/01/2022 12:[address] Bates has reviewed the available records and is offering surgery. Spoke with patient and he reports he would like to proceed. He declined the first available and accepted an OR date of 07/19/22. Instructed patient to hold all OTC medications, vitamins, supplements, NSAIDs and anticoagulation5 days before surgery. Discussed dental clearance. Patient does not have a dentist so will plan forappointment at for clearance per his preference. Also discussed anticipated testing and current visitation policy. Patient verbalized understanding of all above. Conchis Swanson RN Cardiac Surgery PreOp Checklist Patient Name: Lewis George OR Surgery Date: 07/12/22 [facility] Appt. Date: 07/19/22 Primary Care Provider: Rayshawn Cortes MD Definition Comments Diabetes/Insulin Pump A1-c and Endo consult (need for pump pt) n/a Hypothyroid/thyroid nodules TSH/US of thyroid if new nodule n/a Stroke (CVA) Neurology consult n/a Dysphagia, stricture w/no recent dilation, Ramires's Esophagus GI consult n/a Von Willebrand/thrombocytopenia/ Blood... Hematology consult n/a Abnormal labs from outside Place any necessary consults n/a Cardiac Cath Correct birthday/include all images/moving if outside cath Done 06/21/22 on Syngo Redo OHS/Robotic surgery/radiation to chest CT or CTA/if outside CT will need in-house CXR, CardiacMRI Ordered Mechanical valve Admit for Heparin/Lovenox bridge n/a Female <50 y/o HCG n/a Heparin allergy hx of HIT Vascular Medicine consult n/a Nickel/Metal allergy Dermatology consult n/a Breast implants/Robotic candidates Plastic Surgery consult n/a Urinary strictures Urology consult/Urology consult to OR n/a All stimulators/spinal stimulator Type of stimulator n/a PPM/AICD Device check n/a Valve/TAVR/TEVAR/Myectomy/ascending aorta Dental clearance/Dental Consult at [facility] Ordered CABG surgery with previous CABG/varicose vein/vein stripping Leg vein mapping n/a LMT disease > 30% or Carotid Bruits Carotid ultrasound n/a Descending Aneurysm/TEVAR/TAA Pre-admit/hydration/spinal drain to be placed: IR/OR/Not Needed n/a Dialysis patient IHD day prior to OHS n/a CABG with no ECHO results Discussion w/surgeon results for dental clearance: preop/postop n/a Advanced Directives Instructions given to patient Discussed FMLA Forward to AA Discussed Test/Consult not needed Communicate in Epic or Access n/a Record of decreased PFTs, known lung disease Any pulmonary consult n/a Pulmonary embolectomy Needs US/Duplex BLE, VQ scan RHC, possible LHC, Pulmonary and/or Vascular consult n/a Abnormal CT All>1cm if further workup/consult needed n/a CC-Bio Repostitory Notification of packet and general knowledge given to pt Discussed documented in this encounterSelect Medical [facility]12-06-2022 History and physical note Author Dr. Hayes [facility] June 28, 2022 10:52am Note Date/Time June 24, 2022 1 2:37pm [facility] Medical Records Department [address] [place] [address] History & Physical Exam 06/24/22 1232 MR#: [id number] Acct: [id number] Name: LEWIS GEORGE Rep #:[id number] : 1975 46 From: Blayne Hayes MD PCP: RAYSHAWN CORTES Status:[facility] [place] Location: [facility] History and Physical Date of Admission: 06/28/22 [facility] [address] [place] [address] Name:LEWIS MCCLURE : 1975 Provider: Dr. Blayne Hayes MD Age/Sex:? 46/M ?HPI HPI History of Present Illness Surgical H&P: Yes Details: This is a 46-year white male who presents today for cardiovascular evaluation based upon concerns of symptoms concerning for worsening angina pectoris, dyspnea on exertion, a cardiac murmur, superimposed upon a history of hypertension and COVID-19 (2020).? He states since the COVID-19 exposure he has had, over the last few months , he has been noticing worsening chest discomfort with exertion such as going up stairs or going up an incline.? He states he will get a burning sensation as he places his fist over his sternal area.? He becomes short of breath and dyspneic and potentially somewhat diaphoretic.? He states after he stops and rests he will feel better.? He does not have the symptoms radiating to his neck, shoulder, or upper extremities.? There is no associated nausea or emesis.? The symptoms do not occur at rest or at night. He also states that he was told at a young age she had a cardiac murmur.? He remembers undergoing an echocardiogram in age 10.? To the best of his knowledge there was no follow-up after that. He has been evaluated by pulmonology based upon his history and his symptoms.? Thus far he states his pulmonary evaluation has been unremarkable.? Thus he was referred to cardiology for further evaluation. He did have lipid labs performed on 10-10-2020.? At that time his total cholesterol was 98 with an LDL of 47 and an HDL of 31.? His triglycerides were 117. It appears in April 2021 he had an ECG.? At that time he had sinus tachycardiawith nonspecific ST and T wave abnormality. He had an ECG today in the office at which time he had sinus rhythm with nonspecific T wave. Intake Vital Signs ? 06/10/2211:21 06/10/2211:27 Height 5 ft 9.5 in 5 ft 9 in Weight: ? 278 lb 5 oz BMI ? 41.1 BP ? 108/70 Blood Pressure Location ? Lt brachial Position ? Sitting Respiration ? 16 Pulse ? 84 Pulse Source ? Auscultation Intake Visit Reasons:?SOB/REF. G[employer] Required: No Accompanied by: Self Allergies formoterol [From Dulera] Adverse Reaction (Unknown, Verified 06/10/22 11:27) Headachemometasone furoate [From Asmanex Twisthaler] Adverse Reaction (Unknown, Verified 06/10/22 11:27) Mouth Sores Medications lisinopril 40 mg tablet 40 mg PO DAILY 08/04/18 [History Confirmed 06/10/22] cholecalciferol (vitamin D3) 125 mcg (5,000 unit) capsule 125 mcg PO DAILY 12/10/21 [History Confirmed 06/10/22] fexofenadine 180 mg tablet (Dori Allergy) 180 mg PO DAILY 12/10/21 [History Confirmed 06/10/22] albuterol sulfate 90 mcg/actuation aerosol inhaler 2 puff inhalation Q4H PRN shortness of breath or wheezing #8.5 grams 01/28/22 [Rx Confirmed 06/10/22] aspirin 81 mg tablet,delayed release 81 mg PO DAILY #1 TAB 06/10/22 [Rx Confirmed 06/10/22] isosorbide mononitrate 30 mg tablet,extended release 24 hr 30 mg PO DAILY #30 tabs 06/10/22 [Rx Confirmed 06/10/22] PFSH Medical History?(Updated 06/10/22 @ 12:[address] Blayne Hayes MD) Anal fissure Arthritis Asthma Blood in stool BRBPR (bright red blood per rectum) Cardiac murmur Carpal tunnel syndrome Chest pain COVID-19 Essential hypertension Fatty liver Heart murmur History of back problems Hypertension Lumbar stenosis Migraines Obesity CARMEL (obstructive sleep apnea) Pneumonia Pneumonia due to COVID-19 virus Sciatica Surgical History? H/O rhinoplasty S/p bilateral carpal tunnel release Family History? Mother Hypertension Kidney diseaseFather Hypertension Kidney disease CAD (coronary artery disease) History of coronary artery bypass surgeryGrandfather DiabetesGrandmother Diabetes Social History? household members:? spouse Smoking Status:? Never smoker alcohol intake:? never substance use type:? does not use caffeine:? No ROS Const Const: Positive for fatigue (continues since COVID); Negative for weakness, body ache, fever(s), headache(s), chills, frequent falls,night sweats, daytime sleepiness, difficulty sleeping, excessive sweating, weight gain, weight loss, increased appetite, poor appetite, anorexia or other Eyes Eyes: Negative for blurry vision or double vision ENT ENT: Negative for headache(s), dizziness or balance problems Cardio Chest Pain: Yes (since COVID infection x1 year ago) Character: sharp (burning) Onset: exercise (going uphill/stairs, exacerbated with cold air) Location: mid sternal Duration: brief Relieving: rest (take deep breaths) Palpitations: Yes (with chest discomfort) feels like its: pounding Edema: None Muscle aches with walking: None Resp Respiratory: Positive for SOB with activity (New since COVID infection x1 year ago); Negative for SOB at rest, SOB orthopnea\SOB lying down, Cough, Coughing up blood/hemoptysis, chest congestion, pain on inspiration, snoring, stridor, wheezing, crackles, paroxysmal nocturnal dyspnea or other Musc Musc: Negative for muscle aches/ myalgia, muscle weakness, joint pain or balanceproblems Neuro Neuro: Negative for dizziness, lightheadedness, near syncope, syncope, orthostatic symptoms, frequent falls, headache(s), weakness, confusion, memory loss, restless legs, blurry vision, double vision, vertigo, seizures, lack of coordination or other Endo Endo: Positive for fatigue (continues since COVID); Negative for excessive sweating Cardiology Exam Const Appearance: cooperative, healthy appearing, comfortable, no acute distress, welldeveloped and well groomed Nutritional Appearance: obese Orientation: alert, awake and oriented x3 Head Head: normal to inspection, normocephalic and atraumatic Ears: hearing grossly normal bilaterally Nose: external nose normal Face and Sinus: face symmetric Eyes Eyelids: eyelids normal Conjunctivae: conjunctivae normal Pupils: PERRL EOM: EOM intact bilaterally Neck Neck: normal visual inspection and full ROM Carotids: normal carotid upstroke Chest Chest inspection: normal inspection of the chest, symmetric chest movement and normal respiratory effort Auscultation: Bilateral: Clear to Auscultation Cardio Palpation: normal PMI Rate: regular rate Rhythm: regular rhythm Heart sounds: S1 normal, S2 normal and murmur Murmur: Grade 3/6, harsh, late systolic, LLSB, LVOT and sternal notch GI GI: normal to inspection, soft, bowel sounds present and obese Neuro General: patient alert, patient oriented x3, gait normal and moves all extremities Skin Skin: no rashes or lesions noted Extremities Pulses: Normal: Right Femoral Pulse, Left Femoral Pulse, Right Dorsalis Pedis Pulse, Left Dorsalis Pedis Pulse, Right Posterior Tibial Pulse, Left Posterior Tibial Pulse, Right Radial Pulse and Left Radial Pulse Lower Extremity Edema: None: Bilateral Psych Psychological: normal affect Supplemental Info Supplemental Information Labs: ?? ? No Data to Display Diagnostics: ?? ? Electrocardiogram ? Pulmonary: ?? ? Pulmonary Function Test ? Assessment and Plan Assessment and Plan (1) Worsening angina: ?Status:?Acute ?Plan: The patient describes symptoms concerning for worsening angina pectoris. At the moment he will be asked to initiate medical therapy with aspirin 81 mg p.o. daily and isosorbide mononitrate at 30 mg p.o. daily. He will be asked undergo further evaluation of his left ventricle with a transthoracic echocardiogram. He will also be asked undergo further evaluation of his coronary anatomy with a diagnostic cardiac catheterization. It was felt reasonable that the patient be considered, based upon his symptom description, etc., to proceed directly with evaluation with a diagnostic cardiaccatheterization as opposed to an exercise tolerance test/imaging study initially. (2) Dyspnea: ?Status:?Acute ?Plan: The patient will undergo further evaluation. This include laboratory studies, a chest x-ray, and echocardiogram, as well as the aforementioned diagnostic cardiac catheterization. (3) Essential hypertension: ?Status:?Acute ?Plan: The patient's blood pressure appears to be reasonly well controlled at this time. He will continue medical therapy. (4) Cardiac murmur: ?Status:?Acute ?Plan: The patient does have a cardiac murmur. His previous echocardiogram from age 10 is unavailable for review. He will have a follow-up echocardiogram to assess his valvular anatomy and physiology and his ventricular anatomy and physiology. Depending upon the findings, if the patient has underlying valvular heart disease, this may also be contributing to his symptoms especially with concerns of his shortness of breath and dyspnea. (5) CARMEL (obstructive sleep apnea): ?Status:?Acute ?Plan: The patient has a history of CARMEL listed in his past medical history. He will continue evaluation care per his other physicians for this as deemed appropriate. ? ? ? Orders: Orders 12 Lead EKG performed by [facility] Today I10 - Essential (primary) hypertension, R06.00 - Dyspnea, unspecified, R07.9 - Chest pain, unspecified ? Left Heart Cath/COR/LV Percut Today G47.33 - Obstructive sleep apnea (adult) (pediatric), I10 - Essential (primary) hypertension, I20.0 - Unstable angina, R01.1 - Cardiac murmur, unspecified, R06.00 - Dyspnea, unspecified ? Basic Metabolic Profile (BMP) Today G47.33 - Obstructive sleep apnea (adult) (pediatric), I10 - Essential (primary) hypertension, I20.0 - Unstable angina, R01.1 - Cardiac murmur, unspecified, R06.00 - Dyspnea, unspecified ? Partial Thromboplast Time Today G47.33 - Obstructive sleep apnea (adult) (pediatric), I10 - Essential (primary) hypertension, I20.0 - Unstable angina, R01.1 - Cardiac murmur, unspecified, R06.00 - Dyspnea, unspecified ? Prothrombin Time w/INR Today G47.33 - Obstructive sleep apnea (adult) (pediatric), I10 - Essential (primary) hypertension, I20.0 - Unstable angina, R01.1 - Cardiac murmur, unspecified, R06.00 - Dyspnea, unspecified ? Echo Complete Today G47.33 - Obstructive sleep apnea (adult) (pediatric), I10 - Essential (primary) hypertension, I20.0 - Unstable angina, R01.1 - Cardiac murmur, unspecified, R06.00 - Dyspnea, unspecified ? CBC W/Diff, Automated Today G47.33 - Obstructive sleep apnea (adult) (pediatric), I10 - Essential (primary) hypertension, I20.0 - Unstable angina, R01.1 - Cardiac murmur, unspecified, R06.00 - Dyspnea, unspecified ? Chest PA and Lateral Today G47.33 - Obstructive sleep apnea (adult) (pediatric),I10 - Essential (primary) hypertension, I20.0 - Unstable angina, R01.1 - Cardiacmurmur, unspecified, R06.00 - Dyspnea, unspecified ? Medications: New aspirin 81 mg? PO DAILY 1 TAB 0RF ? ? isosorbide mononitrate ER 30 mg? PO DAILY 30 tabs 3RF ? ? isosorbide mononitrate ER 30 mg? PO DAILY 30 tabs 3RF ? ? Plan Details Additional Comments: The above was discussed with the patient he was agreeable to this approach Thank you for allowing me to participate in the care of your patient.? Please don't hesitate to call if any issues arise. This note was generated using a voice recognition system and there may be incorrect words, spelling or punctuation that were not noted when reviewing the office note prior to saving. Follow Up: ? ? 3 Months (PFM ) COVID (Procedure Consent) Procedure Criteria Procedure Criteria: Yes Elective The surgeon/proceduralist and patient have discussed in detail the risk of exposure to and/or potential harm posed by the COVID-19 virus with having a surgery/procedure at this time versus the risk of? delaying the surgery/procedure. It is not possible to know either the risk of delaying the surgery or procedure or chance of getting an infection with perfect accuracy, but a joint decision was made between the patient and the surgeon/proceduralist ?to proceed at this time with the scheduled surgery/procedure as indicated on the consent form. Coding Level of Care Code Off vis,new,level 5 Diagnoses Worsening angina? I20.0 Dyspnea? R06.00 Essential hypertension? I10 Cardiac murmur? R01.1 CARMEL (obstructive sleep apnea)? G47.33 Coding Level of Care Code Off vis,new,level 5 Diagnoses Worsening angina? I20.0 Dyspnea? R06.00 Essential hypertension? I10 Cardiac murmur? R01.1 CARMEL (obstructive sleep apnea)? G47.33 Blayne Hayes MD CC:? RAYSHAWN CORTES ~ Assessment & Plan Addt'l Comments Addendum: Date: 06-28-2022 The patient did undergo further evaluation with transthoracic echocardiogram on 06-17-2022. The results are noted below. Interpretation Summary The study was technically difficult. Contrast injection was performed. ? Left ventricular systolic function is normal. The estimated ejection fraction is 60 %. Moderate concentric left ventricular hypertrophy. Mild diffuse mitral valve thickening. Trivial mitral valve insufficiency. The aortic valve leaflets are not well visualized and thus a bicuspid aortic valve cannot be excluded, however, based upon the 2D echocardiographic images obtained there appears to be moderate diffuse thickening, calcification, and partial restriction. Severe aortic stenosis. No evidence for diastolic dysfunction. The patient underwent further evaluation with diagnostic cardiac catheterizationon 06-21-2022. The results are noted below. CONCLUSIONS Elevated Left Ventricular End Diastolic Pressure Normal LV size, wall motion,and systolic function LVEF: by LV gram 65 % Normal coronary arteries Aortic Root dilated Aortic Valve Calcification- Severe Aortic Valve: PG: suggestive of severe aortic valve restriction / stenosis RECOMMENDATIONS Medical therapy Surgery consult for valvular disease DESCRIPTION OF? PROCEDURE The patient arrived to the procedure lab. The risks and benefits of the procedure as well as a full description of our services here and current unavailability of surgical backup were fully explained to the patient and/or their significant other prior to the catheterization. The Timeout was completed, verifying the correct patient and procedure. The patient's procedural site was prepped and draped in the usual fashion. Local anesthetic was given subcutaneously to right radial region with Lidocaine 2%. Local anesthetic was given subcutaneously to right groin region with Lidocaine 2%. Local anesthetic was given subcutaneously to right brachial region with Lidocaine 2%. Using a modified Seldinger technique, arterial access was obtained via the right radial artery, a 6Fr sheath was inserted. Left Coronary Artery selective angiography was performed in multiple views using a 5 Fr. 4.0 Bodega catheter. Right Coronary Artery selective angiography was then performed in multiple views using a 6 Fr. JR 4 catheter. Left Ventriculography was performed in HSIEH projection using a 5 Fr. Pigtail catheter. LV to AO pullback pressures were then recorded.The arterial sheath was pulled and a TR Band was applied for hemostasis CORONARY ANGIOGRAPHY DOMINANCE:? Right Dominant LEFT HEART ASSESSMENT Left Ventricular Ejection Fraction: by LV Gram 65 % Normal LV wall motion Elevated Left Ventricular End Diastolic Pressure LVEDP: 20 mmHg LEFT MAIN: Angiographically normal LEFT ANTERIOR DESCENDING ARTERY: Angiographically normal CIRCUMFLEX ARTERY: Angiographically normal RIGHT CORONARY ARTERY: Angiographically normal VALVE FINDINGS: Aortic Valve Calcification - severe PG: suggestive of severe aortic valve restriction / stenosis AORTIC ROOT: Dilated Status post the above procedures the patient's medications were adjusted and hispreviously initiated medical management with isosorbide mononitrate was discontinued. The patient was asked undergo further evaluation of his aortic valve anatomy andphysiology with a transesophageal echocardiogram. The procedure and risk were discussed with him. He was agreeable to this approach. In the interim the patient is being referred to Dr. Andreia Bates at [facility] CT surgery for consideration, based upon his clinical, examination findings, and his objective findings, for aortic valve replacement and possibly aortic root repair. This note was generated using a voice recognition system and there may be incorrect words, spelling or punctuation that were not noted when reviewing the office note prior to saving. 06/28/22 1052 <Electronically signed by Blayne Hayes MD> Cosigner Signature (if applicable): CC: RAYSHAWN CORTES; Dr. Blayne Hayes MD~ Signed [facility] Work Phone: 1(887) 877-373412-01-2022 Evaluation note* Diagnosis Onset Date Resolution Status Essential hypertension chron ic History of mechanical aortic valve replacement Decembe r, 2021 chronic Essential hypertension chron ic History of mechanical aortic valve replacement Decembe r, 2021 chronic Pericardial effusion resolve d Essential hypertension chron ic History of mechanical aortic valve replacement Decembe r, 2021 chronic Pericardial effusion resolve d [facility] Work Phone: [phone] Evaluation note* Diagnosis Onset Date Resolution Status Essential hypertension chron ic History of mechanical aortic valve replacement Decembe r, 2021 chronic Pericardial effusion resolve d Essential hypertension chron ic History of mechanical aortic valve replacement Decembe r, 2021 chronic Pericardial effusion resolve d [facility] Work Phone: [phone] Evaluation note* Diagnosis Onset Date Resolution Status Essential hypertension chron ic History of mechanical aortic valve replacement Decembe r, 2021 chronic Pericardial effusion resolve d Obesity acute CARMEL (obstructive sleep apnea) chronic [facility] Work Phone: [phone] Evaluation note* Diagnosis Onset Date Resolution Status Obesity chronic CARMEL (obstructive sleep apnea) chronic Essential hypertension chron ic History of mechanical aortic valve replacement Decembe r, 2021 chronic Pericardial effusion resolve d [facility] Work Phone: [phone] Evaluation note* Diagnosis Onset Date Resolution Status Obesity chronic CARMEL (obstructive sleep apnea) chronic Essential hypertension chron ic History of mechanical aortic valve replacement Decembe r, 2021 chronic Pericardial effusion resolve d Influenza A acute [facility] Work Phone: [phone] Miscellaneous Notes* Telephone Encounter - Randdreadshanaloni Blaise Johnson - 11/18/2021 3:34 PM EDT 11/18/21 Left message with family for patient to call Dr. Gruber office to make an appointment. Xiomy Stoner [facility] Diagnosis Onset Date Resolution Status Dyspnea acute Cardiac murmur acute Dyspnea acute Essential hypertension acute CARMEL (obstructive sleep apnea) acute Worsening angina acute [facility] Work Phone: Evaluation note* Diagnosis Disorder of artery or arteriole (HCC)- Primary Unspecified disorders of arteries and arterioles Pre-operative cardiovascular examination Aortic valve disorder Aortic valve disorders [facility]* Diagnosis Onset Date Resolution Status Dyspnea acute Cardiac murmur acute Dyspnea acute Essential hypertension acute CARMEL (obstructive sleep apnea) acute Worsening angina acute Acute sinusitis acute Coughing acute [facility] Work Phone: Evaluation note* Diagnosis Pre-operative clearance- Primary Preoperative examination, unspecified Aortic valve disorder Aortic valve disorders documented in this encounter [facility] note* Diagnosis Disorder of artery or arteriole (HCC) Unspecified disorders of arteries and arterioles Pre-operative cardiovascular examination Aortic valve disorder Aortic valve disorders [facility]* Diagnosis Disorder of artery or arteriole (HCC) Unspecified disorders of arteries and arterioles Pre-operative cardiovascular examination Aortic valve disorder Aortic valve disorders [facility]* Diagnosis Disorder of artery or arteriole (HCC) Unspecified disorders of arteries and arterioles Pre-operative cardiovascular examination Aortic valve disorder Aortic valve disorders [facility]* Diagnosis Pre-op testing- Primary Preoperative examination, unspecified [facility]* Diagnosis Encounter for preoperative anesthesiology assessment for cardiac surgery- Primary [facility]* Diagnosis Nonrheumatic aortic valve stenosis- Primary Aortic valve disorders documented in this encounter [facility] note* Diagnosis Bicuspid aortic valve- Primary Congenital insufficiency of aortic valve Severe aortic valve stenosis Aortic valve disorders Essential hypertension Unspecified essential hypertension S/P AVR Heart valve replaced by other means [facility]* Diagnosis Onset Date Resolution Status Cardiac murmur acute Dyspnea acute CARMEL (obstructive sleep apnea) acute Worsening angina acute Essential hypertension chron ic Acute sinusitis acute Coughing acute History of mechanical aortic valve replacement Decembe r, 2021 acute Essential hypertension chron ic [facility] Work Phone: Evaluation note* Diagnosis Essential hypertension- Primary Unspecified essential hypertension Nonrheumatic aortic valve stenosis Aortic valve disorders [facility] Diagnosis Onset Date Resolution Status Cardiac murmur acute Dyspnea acute CARMEL (obstructive sleep apnea) acute Worsening angina acute Essential hypertension chron ic Acute sinusitis acute Coughing acute Essential hypertension chron ic History of mechanical aortic valve replacement Decembe r, 2021 chronic Essential hypertension chron ic History of mechanical aortic valve replacement Decembe r, 2021 chronic Pericardial effusion resolve d [facility] Work Phone: Reason for referral (narrative)* Outpatient Procedure (Routine) - Pending Review Specialty Diagnoses / Procedures Referred By Nazanin miller Referred To [facility] Diagnoses Disorder of artery or arteriole (HCC) Pre-operative cardiovascular examination Aortic valve disorder Procedures LUNG DIFFUSION CAPACITY (DLCO) DIFFUSING CAPACITY Andreia Bates MD [address] [place] [address] [address] Referral ID Status Reason Start Date Expiration Date Visits Requested Visits Authorized [id number] Pending Review Auto-Generat ed Referral 07/01/2022 07/31/2023 1 1 * Outpatient Procedure (Routine) - Pending Review Specialty Diagnoses / Procedures Referred By Nazanin miller Referred To [facility] Diagnoses Disorder of artery or arteriole (HCC) Pre-operative cardiovascular examination Aortic valve disorder Procedures SPIROMETRY BASELINE ONLY SPMTRY W/VC EXPIRATORY SIOBHAN W/WO MXML VOL VNTJ Andreia Bates MD [address] [place] [address] [address] Referral ID Status Reason Start Date Expiration Date Visits Requested Visits Authorized [id number] Pending Review Auto-Generat ed Referral 07/01/2022 07/31/2023 1 1 * MRI/CT (Routine) - Pending Review Specialty Diagnoses / Procedures Referred By Contac t Referred To Contact CT IMAGING Diagnoses Disorder of artery or arteriole (HCC) Pre-operative cardiovascular examination Aortic valve disorder Procedures CTA CHEST (GATED) W IVCON CT ANGIOGRAPHY CHEST W/CONTRAST/NONCONTRAST Andreia Bates MD [address] [place] [address] Ct Imaging Referral ID Status Reason Start Date Expiration Date Visits Requested Visits Authorized [id number] Pending Review Auto-Generat ed Referral 07/01/2022 07/31/2023 1 1 * Outpatient Procedure (Routine) - Pending Review Specialty Diagnoses / Procedures Referred By Mary Ellenac t Referred To Contact [facility] Diagnoses Disorder of artery or arteriole (HCC) Pre-operative cardiovascular examination Aortic valve disorder Procedures ECHO ECHO TTHRC R-T 2D W/WOM-MODE COMPL SPEC&COLR D Andreia Bates MD [address] [place] [address] [address] Referral ID Status Reason Start Date Expiration Date Visits Requested Visits Authorized [id number] Pending Review Auto-Generat ed Referral 07/01/2022 07/01/2023 1 1 * Outpatient Procedure (Routine) - Pending Review Specialty Diagnoses / Procedures Referred By Contac t Referred To Contact [facility] Diagnoses Disorder of artery or arteriole (HCC) Pre-operative cardiovascular examination Aortic valve disorder Procedures ECG COMPLETE ECG ROUTINE ECG W/LEAST 12 LDS W/I&R Andreia Bates MD [address] [place] [address] [address] Referral ID Status Reason Start Date Expiration Date Visits Requested Visits Authorized [id number] Pending Review Auto-Generat ed Referral 07/01/2022 07/01/2023 1 1 * Consult, Test, Treat (Routine) - Pending Review Specialty Diagnoses / Procedures Referred By Nazanin t Referred To Contact Dentistry Diagnoses Disorder of artery or arteriole (HCC) Pre-operative cardiovascular examination Aortic valve disorder Procedures CONSULT TO DENTISTRY OFFICE/OUTPATIENT [facility] 60-74 MINUTES Andreia Bates MD [address] [place] [address] Referral ID Status Reason Start Date Expiration Date Visits Requested Visits Authorized [id number] Pending Review PCP Requested Referral 07/01/2022 07/01/2023 1 1 * Consult, Test, Treat (Routine) - Pending Review Specialty Diagnoses / Procedures Referred By Nazanin miller Referred To Contact Cardiac Surg Diagnoses Disorder of artery or arteriole (HCC) Pre-operative cardiovascular examination Aortic valve disorder Procedures CARDIOTHORACIC PREOP EVALUATION OFFICE/OUTPATIENT [facility] 60-74 MINUTES Andreia Bates MD [address] [place] [address] Referral ID Status Reason Start Date Expiration Date Visits Requested Visits Authorized [id number] Pending Review PCP Requested Referral 07/01/2022 07/01/2023 1 1 * Consult, Test, Treat (Routine) - Pending Review Specialty Diagnoses / Procedures Referred By Nazanin t Referred To Contact Cardiology Diagnoses Disorder of artery or arteriole (HCC) Pre-operative cardiovascular examination Aortic valve disorder Procedures CONSULT TO CARDIOLOGY OFFICE/OUTPATIENT [facility] 60-74 MINUTES Andreia Bates MD [address] [place] [address] Referral ID Status Reason Start Date Expiration Date Visits Requested Visits Authorized [id number] Pending Review PCP Requested Referral 07/01/2022 07/01/2023 1 1 [facility] for referral (narrative)* Outpatient Procedure (Routine) - Pending Review Specialty Diagnoses / Procedures Referred By Contac t Referred To Contact [facility] Diagnoses Bicuspid aortic valve Severe aortic valve stenosis Essential hypertension S/P AVR Procedures ECHO ECHO TTHRC R-T 2D W/WOM-MODE COMPL SPEC&[place] [address] [place] [address] [address] Referral ID Status Reason Start Date Expiration Date Visits Requested Visits Authorized [id number] Pending Review Auto-Generat ed Referral 2 07/23/2023 1 1 * Outpatient Procedure (Routine) - Pending Review Specialty Diagnoses / Procedures Referred By Contlili t Referred To Contact [facility] Diagnoses Bicuspid aortic valve Severe aortic valve stenosis Essential hypertension S/P AVR Procedures ECG COMPLETE ECG ROUTINE ECG W/LEAST 12 LDS W/I&[place] [address] [place] [address] [address] Referral ID Status Reason Start Date Expiration Date Visits Requested Visits Authorized [id number] Pending Review Auto-Generat ed Referral 2 07/23/2023 1 1 [facility] Outpatient Procedure (Routine) - Pending Review Specialty Diagnoses / Procedures Referred By Contac t Referred To [facility] Diagnoses Essential hypertension Nonrheumatic aortic valve stenosis Procedures ECHO ECHO TTHRC R-T 2D W/WOM-MODE COMPL SPEC&COLR Hira De La Rosa MD [address] [place] [address] [address] Referral ID Status Reason Start Date Expiration Date Visits Requested Visits Authorized [id number] Pending Review Auto-Generat ed Referral 08/30/2022 08/30/2023 1 1 * Outpatient Procedure (Routine) - Pending Review Specialty Diagnoses / Procedures Referred By Contac t Ref[facility] Diagnoses Essential hypertension Nonrheumatic aortic valve stenosis Procedures ECG COMPLETE ECG ROUTINE ECG W/LEAST 12 LDS W/I&R Hira Combs MD [address] [place] [address] [facility] [place] [address] [place] [address] Referral ID Status Reason Start Date Expiration Date Visits Requested Visits Authorized [id number] Pending Review Auto-Generat ed Referral 08/30/2022 08/30/2023 1 1 [facility])No reason for referral information availableSlade [facility]URLES[facility]ICE[facility] Services Work Phone: Summary Purpose Family History Relationship Condition Age at Onset Recorded Date/T zuleyma mother Hypertension Unknown Kidney disorder Unknown father Hypertension Unknown Coronary artery disease Unknown History of coronary artery bypass surgery Unknown grandfather Diabetes mellitus Unknown grandmother Diabetes mellitus Unknown Advance Directives Advance Directive Response Recorded Date/ Time Living Will No January 28, 2022 1 0:03am Power of Medical Assistant Float No January 28, 2022 10:03am Advance Directive Response Recorded Date/ Time Advance Directives on File No 2021 8:23am Advance Directives No May 8:51am Living Will No June 21 8:51am Power of Medical Assistant Float No June 21, 2022 8:51am Advance Directive Response Recorded Date/ Time Advance Directives on File No 2021 8:23am Advance Directives No May 8:51am Living Will No August 25 10:41am Power of Medical Assistant Float No August 25, 2022 10:41am Advance Directive Response Recorded Date/ Time Advance Directives on File No 2021 8:23am Advance Directives on File No Febru kathleen 13th, 2023 10:13am Advance Directives No May 8:51am Living Will No September 05, 2 023 10:13am Power of Medical Assistant Float No September 05, 2022 10:13am Advance Directive Response Recorded Date/ Time Advance Directives on File No 2022 11:13am Advance Directives No May 9:51am Living Will No September 05, 023 11:13am Power of Medical Assistant Float No September 05, 2022 11:13am Advance Directive Response Recorded Date/ Time Advance Directives No May 9:51am Living Will No September 05 023 11:13am Power of Medical Assistant Float No September 05, 2022 11:13am Advance Directive Response Recorded Date/ Time Advance Directives No May 8:51am Living Will No September 05 023 10:13am Power of Medical Assistant Float No September 05, 2022 10:13am Advance Directive Response Recorded Date/ Time Advance Directives No August 08, 2024 3:29pm Chief Complaint and Reason for Visit Chief Complaint 1 M FU SOB/REF. HONG CARDIAC MURMUR Reason for Visit Dyspnea Cardiac murmur Dyspnea Essential hypertension CARMEL (obstructive sleep apnea) Worsening angina Chief Complaint 1 M FU SOB/REF. HONG severe aortic valve stenosis CARDIAC MURMUR severe aortic valve stenosis Reason for Visit Dyspnea Cardiac murmur Dyspnea Essential hypertension CARMEL (obstructive sleep apnea) Worsening angina Chief Complaint 1 M FU SOB/REF. HONG severe aortic valve stenosis CARDIAC MURMUR severe aortic valve stenosis Nonrheumatic aortic (valve) stenosis Nonrheumatic aortic (valve) stenosis Cath site R arm and R groin swollen L.L. rt groin swelling SINUS/ COUGH AP & LAT CXR Reason for Visit Dyspnea Cardiac murmur Dyspnea Essential hypertension CARMEL (obstructive sleep apnea) Worsening angina Acute sinusitis Coughing Chief Complaint SOB/REF. OHNG severe aortic valve stenosis CARDIAC MURMUR severe aortic valve stenosis Nonrheumatic aortic (valve) stenosis Nonrheumatic aortic (valve) stenosis Cath site R arm and R groin swollen L.L. rt groin swelling SINUS/ COUGH AP & LAT CXR Amb Documentation s/p valve replacement [facility]CF Reason for Visit Cardiac murmur Dyspnea CARMEL (obstructive sleep apnea) Worsening angina Essential hypertension Acute sinusitis Coughing History of mechanical aortic valve replacement Essential hypertension Chief Complaint SOB/REF. HONG severe aortic valve stenosis CARDIAC MURMUR severe aortic valve stenosis Nonrheumatic aortic (valve) stenosis Nonrheumatic aortic (valve) stenosis Cath site R arm and R groin swollen L.L. rt groin swelling SINUS/ COUGH AP & LAT CXR Amb Documentation s/p valve replacement [facility] E ORDER CP Reason for Visit Cardiac murmur Dyspnea CARMEL (obstructive sleep apnea) Worsening angina Essential hypertension Acute sinusitis Coughing History of mechanical aortic valve replacement Essential hypertension Chief Complaint SOB/REF. HONG severe aortic valve stenosis CARDIAC MURMUR severe aortic valve stenosis Nonrheumatic aortic (valve) stenosis Nonrheumatic aortic (valve) stenosis Cath site R arm and R groin swollen L.L. rt groin swelling SINUS/ COUGH AP & LAT CXR Amb Documentation s/p valve replacement [facility] E ORDER CP Heart Valve Replacement S/P Aortic Valve Repair, Aortic Root Dilation Reason for Visit Cardiac murmur Dyspnea CARMEL (obstructive sleep apnea) Worsening angina Essential hypertension Acute sinusitis Coughing History of mechanical aortic valve replacement Essential hypertension Chief Complaint SOB/REF. HONG severe aortic valve stenosis CARDIAC MURMUR severe aortic valve stenosis Nonrheumatic aortic (valve) stenosis Nonrheumatic aortic (valve) stenosis Cath site R arm and R groin swollen L.L. rt groin swelling SINUS/ COUGH AP & LAT CXR Amb Documentation s/p valve replacement [facility] E ORDER CP Heart Valve Replacement S/P Aortic Valve Repair, Aortic Root Dilation 1 M FU Reason for Visit Cardiac murmur Dyspnea CARMEL (obstructive sleep apnea) Worsening angina Essential hypertension Acute sinusitis Coughing Essential hypertension History of mechanical aortic valve replacement Essential hypertension History of mechanical aortic valve replacement Pericardial effusion Chief Complaint SOB/REF. HONG severe aortic valve stenosis CARDIAC MURMUR severe aortic valve stenosis Nonrheumatic aortic (valve) stenosis Nonrheumatic aortic (valve) stenosis Cath site R arm and R groin swollen L.L. rt groin swelling SINUS/ COUGH AP & LAT CXR Amb Documentation s/p valve replacement [facility] E ORDER CP Heart Valve Replacement S/P Aortic Valve Repair, Aortic Root Dilation 1 M FU S/P Aortic Valve Repair, Aortic Root Dilation Reason for Visit Cardiac murmur Dyspnea CARMEL (obstructive sleep apnea) Worsening angina Essential hypertension Acute sinusitis Coughing Essential hypertension History of mechanical aortic valve replacement Essential hypertension History of mechanical aortic valve replacement Pericardial effusion Chief Complaint Amb Documentation s/p valve replacement [facility] E ORDER CP Heart Valve Replacement S/P Aortic Valve Repair, Aortic Root Dilation 1 M FU EVAL PE E ORDERS S/P Aortic Valve Repair, Aortic Root Dilation 4-8 WK F/U S/P Aortic Valve Repair, Aortic Root Dilation Reason for Visit Essential hypertensi on History of mechanical aortic valve replacement Essential hypertension History of mechanical aortic valve replacement Pericardial effusion Essential hypertension History of mechanical aortic valve replacement Pericardial effusion Chief Complaint E ORDER CP Heart Valve Replacement S/P Aortic Valve Repair, Aortic Root Dilation 1 M FU EVAL PE E ORDERS S/P Aortic Valve Repair, Aortic Root Dilation 4-8 WK F/U S/P Aortic Valve Repair, Aortic Root Dilation S/P Aortic Valve Repair, Aortic Root Dilation Reason for Visit Essential hypertensi on History of mechanical aortic valve replacement Pericardial effusion Essential hypertension History of mechanical aortic valve replacement Pericardial effusion Chief Complaint S/P Aortic Valve Rep air, Aortic Root Dilation MEDICATION CONCERNS Sleep problems CARMEL Reason for Visit Essential hypertensi on History of mechanical aortic valve replacement Pericardial effusion Obesity CARMEL (obstructive sleep apnea) Chief Complaint CARMEL,CPAP *DEVICE TAG GED 3 M FU 1 Y FU Reason for Visit Obesity CARMEL (obstructive sleep apnea) Essential hypertension History of mechanical aortic valve replacement Pericardial effusion Chief Complaint 3 M FU 1 Y FU FEVER, COUGH PRESENCE OF PROSTHETIC HEART VALVE Reason for Visit Obesity CARMEL (obstructive sleep apnea) Essential hypertension History of mechanical aortic valve replacement Pericardial effusion Influenza A Chief Complaint Admit Date CERVICAL SPINE October 18, 2024 2:2 6pm Room 3 October 18, 2024 3:0 2pm RIGHT SHOULDER November 29, 2024 2:41pm RM 2 November 29, 2024 3:18pm ACUPUNCTURE/NEW PT December 31, 2024 3:36 pm Reason for Visit Admit Date Cervical radiculopathy October 18, 2024 2:26pm Trigger point of neck October 18, 2024 2 :26pm Trigger point of neck November 29, 2024 2:41 pm Cervical pain (neck) December 31, 2024 3:3 6pm Cervical radiculopathy December 31, 2024 3 :36pm Chief Complaint Admit Date CERVICAL SPINE October 18, 2024 2:2 6pm Room 3 October 18, 2024 3:0 2pm RIGHT SHOULDER November 29, 2024 2:41pm RM 2 November 29, 2024 3:18pm ACUPUNCTURE/NEW PT December 31, 2024 3:36 pm acupuncture January 07, 2025 3:59 pm Reason for Visit Admit Date Cervical radiculopathy October 18, 2024 2:26pm Trigger point of neck October 18, 2024 2 :26pm Trigger point of neck November 29, 2024 2:41 pm Cervical radiculopathy December 31, 2024 3 :36pm Cervicogenic headache December 31, 2024 3: 36pm Segmental and somatic dysfunction of cer vical region December 31, 2024 3:36pm Segmental and somatic dysfunction of tho racic region December 31, 2024 3:36pm Cervicogenic headache January 07, 2025 3: 59pm Segmental and somatic dysfunction of cer vical region January 07, 2025 3:59pm Segmental and somatic dysfunction of tho racic region January 07, 2025 3:59pm Chief Complaint Admit Date CERVICAL SPINE October 18, 2024 2:2 6pm Room 3 October 18, 2024 3:0 2pm RIGHT SHOULDER November 29, 2024 2:41pm RM 2 November 29, 2024 3:18pm ACUPUNCTURE/NEW PT December 31, 2024 3:36 pm acupuncture January 07, 2025 3:59 pm back pain January 30, 2025 3:53 pm Reason for Visit Admit Date Cervical radiculopathy October 18, 2024 2:26pm Trigger point of neck October 18, 2024 2 :26pm Trigger point of neck November 29, 2024 2:41 pm Cervical radiculopathy December 31, 2024 3 :36pm Cervicogenic headache December 31, 2024 3: 36pm Segmental and somatic dysfunction of cer vical region December 31, 2024 3:36pm Segmental and somatic dysfunction of tho racic region December 31, 2024 3:36pm Cervicogenic headache January 07, 2025 3: 59pm Segmental and somatic dysfunction of cer vical region January 07, 2025 3:59pm Segmental and somatic dysfunction of lum bar region January 07, 2025 3:59pm Segmental and somatic dysfunction of pel neena region January 07, 2025 3:59pm Segmental and somatic dysfunction of tho racic region January 07, 2025 3:59pm Cervicogenic headache January 30, 2025 3: 53pm Segmental and somatic dysfunction of cer vical region January 30, 2025 3:53pm Segmental and somatic dysfunction of lum bar region January 30, 2025 3:53pm Segmental and somatic dysfunction of pel neena region January 30, 2025 3:53pm Segmental and somatic dysfunction of tho racic region January 30, 2025 3:53pm Reason for Referral Specialty Diagnoses / Procedures Referred By Contac t Referred To Contact CT IMAGING Diagnoses Disorder of artery or arteriole (HCC) Pre-operative cardiovascular examination Aortic valve disorder Procedures CTA CHEST (GATED) W IVCON CT ANGIOGRAPHY CHEST W/CONTRAST/NONCONTRAST Andreia Bates MD [address] [place] [address] Ct Imaging Referral ID Status Reason Start Date Expiration Date V isits Requested Visits Authorized [id number] Closed Auto-Generate d Referral 07/01/2022 07/11/2022 1 1 Additional Source Comments Source Comments (unrecognize d section and content) In the event this informatio n is protected by the Federal Confidentiality of Alcohol and Drug Abuse Patient Records regulations: The Federal rules restrict any use of the information to criminally investigate or prosecute any alcohol or drug abuse patient.[facility] the event this information is protected by the Federal Confidentiality of Alcohol and Drug Abuse Patient Records regulations: The Federal rules restrict any use of the information to criminally investigate or prosecute any alcohol or drug abuse patient.[facility] HospitalIn the event this information is protected by the Federal Confidentiality of Alcohol and Drug Abuse Patient Records regulations: The Federal rules restrict any use of the information to criminally investigate or prosecute any alcohol or drug abuse patient.[facility] HospitalIn the event this information is protected by the Federal Confidentiality of Alcohol and Drug Abuse Patient Records regulations: The Federal rules restrict any use of the information to criminally investigate or prosecute any alcohol or drug abuse patient.[facility] HospitalIn the event this information is protected by the Federal Confidentiality of Alcohol and Drug Abuse Patient Records regulations: The Federal rules restrict any use of the information to criminally investigate or prosecute any alcohol or drug abuse patient.[facility] HospitalIn the event this information is protected by the Federal Confidentiality of Alcohol and Drug Abuse Patient Records regulations: The Federal rules restrict any use of the information to criminally investigate or prosecute any alcohol or drug abuse patient.[facility] HospitalIn the event this information is protected by the Federal Confidentiality of Alcohol and Drug Abuse Patient Records regulations: The Federal rules restrict any use of the information to criminally investigate or prosecute any alcohol or drug abuse patient.[facility] HospitalIn the event this information is protected by the Federal Confidentiality of Alcohol and Drug Abuse Patient Records regulations: The Federal rules restrict any use of the information to criminally investigate or prosecute any alcohol or drug abuse patient.[facility] HospitalIn the event this information is protected by the Federal Confidentiality of Alcohol and Drug Abuse Patient Records regulations: The Federal rules restrict any use of the information to criminally investigate or prosecute any alcohol or drug abuse patient.[facility] HospitalIn the event this information is protected by the Federal Confidentiality of Alcohol and Drug Abuse Patient Records regulations: The Federal rules restrict any use of the information to criminally investigate or prosecute any alcohol or drug abuse patient.[facility] HospitalIn the event this information is protected by the Federal Confidentiality of Alcohol and Drug Abuse Patient Records regulations: The Federal rules restrict any use of the information to criminally investigate or prosecute any alcohol or drug abuse patient.[facility] HospitalIn the event this information is protected by the Federal Confidentiality of Alcohol and Drug Abuse Patient Records regulations: The Federal rules restrict any use of the information to criminally investigate or prosecute any alcohol or drug abuse patient.[facility] HospitalIn the event this information is protected by the Federal Confidentiality of Alcohol and Drug Abuse Patient Records regulations: The Federal rules restrict any use of the information to criminally investigate or prosecute any alcohol or drug abuse patient.[facility] HospitalIn the event this information is protected by the Federal Confidentiality of Alcohol and Drug Abuse Patient Records regulations: The Federal rules restrict any use of the information to criminally investigate or prosecute any alcohol or drug abuse patient.[facility] HospitalIn the event this information is protected by the Federal Confidentiality of Alcohol and Drug Abuse Patient Records regulations: The Federal rules restrict any use of the information to criminally investigate or prosecute any alcohol or drug abuse patient.[facility] HospitalIn the event this information is protected by the Federal Confidentiality of Alcohol and Drug Abuse Patient Records regulations: The Federal rules restrict any use of the information to criminally investigate or prosecute any alcohol or drug abuse patient.[facility] HospitalIn the event this information is protected by the Federal Confidentiality of Alcohol and Drug Abuse Patient Records regulations: The Federal rules restrict any use of the information to criminally investigate or prosecute any alcohol or drug abuse patient.[facility] HospitalIn the event this information is protected by the Federal Confidentiality of Alcohol and Drug Abuse Patient Records regulations: The Federal rules restrict any use of the information to criminally investigate or prosecute any alcohol or drug abuse patient.[facility] HospitalIn the event this information is protected by the Federal Confidentiality of Alcohol and Drug Abuse Patient Records regulations: The Federal rules restrict any use of the information to criminally investigate or prosecute any alcohol or drug abuse patient.[facility] HospitalIn the event this information is protected by the Federal Confidentiality of Alcohol and Drug Abuse Patient Records regulations: The Federal rules restrict any use of the information to criminally investigate or prosecute any alcohol or drug abuse patient.[facility] HospitalIn the event this information is protected by the Federal Confidentiality of Alcohol and Drug Abuse Patient Records regulations: The Federal rules restrict any use of the information to criminally investigate or prosecute any alcohol or drug abuse patient.[facility] Reason for Visit (unrecogniz ed section and content) Reason Comments Appointment Reason Comments Pre-Op CTHO Consult Cardiac Preop Checklist Reason Comments Spirometry Specialty Diagnoses / Procedures Referred By Contac t Referred To [facility] Diagnoses Disorder of artery or arteriole (HCC) Pre-operative cardiovascular examination Aortic valve disorder Procedures SPIROMETRY BASELINE ONLY SPMTRY W/VC EXPIRATORY SIOBHAN W/WO MXML VOL VNTJ Andreia Bates MD [address] [place] [address] [facility] [place] [address] [place] [address] Referral ID Status Reason Start Date Expiration Date V isits Requested Visits Authorized [id number] Closed Auto-Generate d Referral 07/06/2022 07/23/2022 1 1 Specialty Diagnoses / Procedures Referred By Contac t Referred To Contact [facility] Diagnoses Disorder of artery or arteriole (HCC) Pre-operative cardiovascular examination Aortic valve disorder Procedures LUNG DIFFUSION CAPACITY (DLCO) [place] [address] [place] [address] [place] [address] Referral ID Status Reason Start Date Expiration Date V isits Requested Visits Authorized [id number] Closed Auto-Generate d Referral 07/06/2022 07/23/2022 [address] Specialty Diagnoses / Procedures Referred By Contac t Referred To Contact CT IMAGING Diagnoses Disorder of artery or arteriole (HCC) Pre-operative cardiovascular examination Aortic valve disorder Procedures CTA CHEST (GATED) W IVCON CT ANGIOGRAPHY CHEST W/CONTRAST/[place] [address] [place] [address] Ct Imaging Referral ID Status Reason Start Date Expiration Date V isits Requested Visits Authorized [id number] Closed Auto-Generate d Referral 07/01/2022 07/11/2022 1 1 Reason Comments Patient Education Reason Comments Post Dc Program Call - Urgent Increase B i-Lateral Swelling Reason Comments Post Dc Program Call - Fyi Reason Comments Post Dc Program Call - Needs Attn Reason Comments Follow Up Phone Call RC f/u 1st attempt Reason Comments Post Dc Program Call - Needs Attn Medica tion Concerns Reason Comments [facility] MED RECS VIA FAX (unrecognized sect ion and content) No Status Records FoundNo Status Records FoundNo Status Records FoundNo Status Records FoundNo Status Records Found INFORMATION SOURCE (unrecogn ized section and content) DATE CREATED AUTHOR 01/28/2022 [facility] DATE CREATED AUTHOR AUTHOR'S ORGANIZ ATION 08/03/2022 [facility] DATE CREATED AUTHOR AUTHOR'S ORGANIZ ATION 10/01/2022 [facility] DATE CREATED AUTHOR AUTHOR'S ORGANIZ ATION 10/31/2024 [facility] DATE CREATED AUTHOR AUTHOR'S ORGANIZ ATION 01/14/2025 [facility] Goals (unrecognized section and content) Goals may be documented in a n alternate sectionGoals may be documented in an alternate sectionGoals may be documented in an alternate sectionGoals may be documented in an alternate sectionGoals may be documented in an alternate sectionGoals may be documented in an alternate sectionGoals may be documented in an alternate sectionGoals may be documented in an alternate sectionGoals may be documented in an alternate sectionGoals may be documented in an alternate sectionGoals may be documented in an alternate sectionGoals may be documented in an alternate sectionGoals may be documented in an alternate sectionGoals may be documented in an alternate sectionGoals may be documented in an alternate sectionGoals may be documented in an alternate section Care Teams (unrecognized sec tion and content) Flight Steward Relationship Specialty Start Date End Date Rayshawn Cortes MD [address] [place] [address] PCP - General Family Medicine 06/24/22 Blayne Hayes1 [address] [place] [place] [id number] Referring Cardiology 06/24/22 Flight Steward Relationship Specialty Start Date End Date Rayshawn Cortes MD [address] [place] [address] PCP - General Family Medicine 06/24/22 Blayne Hayes1 [address] [place] [id number] Referring Cardiology 06/24/22 Flight Steward Relationship Specialty Start Date End Date Rayshawn Cortes MD [address] [place] [address] PCP - General Family Medicine 06/24/22 [place], Blayne F [address] [place] [address] Referring Cardiology 06/24/22 Flight Steward Relationship Specialty Start Date End Date Rayshawn Cortes MD [address] [place] [address] PCP - General Family Medicine 06/24/22 Blayne Hayes [address] [place] [address] Referring Cardiology 06/24/22 Flight Steward Relationship Specialty Start Date End Date Rayshawn Cortes MD [address] [place] [address] PCP - General Family Medicine 06/24/22 Blayne Hayes [address] [place] [address] Referring Cardiology 06/24/22 Flight Steward Relationship Specialty Start Date End Date Rayshawn Cortes MD [address] [place] [address] PCP - General Family Medicine 06/24/22 Blayne Hayes [address] [place] [address] Referring Cardiology 06/24/22 Flight Steward Relationship Specialty Start Date End Date Rayshawn Cortes MD [address] [place] [address] PCP - General Family Medicine 06/24/22 Blayne Hayes [address] [place] [address] Referring Cardiology 06/24/22 Flight Steward Relationship Specialty Start Date End Date Rayshawn Cortes MD [address] [place] [address] PCP - General Family Medicine 06/24/22 Blayne Hayes [address] [place] [address] Referring Cardiology 06/24/22 Flight Steward Relationship Specialty Start Date End Date Rayshawn Cortes MD [address] [place] [address] PCP - General Family Medicine 06/24/22 Blayne Hayes [address] [place] [address] Referring Cardiology 06/24/22 Flight Steward Relationship Specialty Start Date End Date Rayshawn Cortes MD [address] [place] [address] PCP - General Family Medicine 06/24/22 Blayne Hayes F [address] [place] [address] Referring Cardiology 06/24/22 Flight Steward Relationship Specialty Start Date End Date Rayshawn Cortes MD [address] [place] [address] PCP - General Family Medicine 06/24/22 Blayne Hayes [address] [place] [address] Referring Cardiology 06/24/22 Team Status: Active Member Role Status Dates Dr. Rayshawn Cortes MD Family Provider Active Dr. Rayshawn Cortes MD Primary Care Provider Active Team Status: Inactive Member Role Status Dates Dr. Rayshawn Cortes MD Primary Care Provider, Referring Pr ovider Active Dr. Blayne Hayes MD Attending Provider Active Team Status: Active Member Role Status Dates Dr. Rayshawn Cortes MD Primary Care Provider Active Dr. Blayne Hayes MD Attending Provider Active Team Status: Active Member Role Status Dates Dr. Rayshawn Cortes MD Primary Care Provider Active Dr. Blayne Hayes MD Attending Provid er, Referring Provider, Other Provider Active Team Status: Active Member Role Status Dates Dr. Rayshawn Cortes MD Primary Care Provider Active Dr. Alin Kaur MD Attending Provider Active Dr. Blayne Hayes MD Referring Provider Active Team Status: Inactive Member Role Status Dates Dr. Rayshawn Cortes MD Primary Care Provider, Referring Pr ovider Active Luis ODONNELL, PA Attending Provider Active Team Status: Inactive Member Role Status Dates Dr. Rayshawn Cortes MD Primary Care Provider, Referring Pr ovider Active Archie Chavarria RN SANE, RN SANE-C Attending Provider Active Team Status: Active Member Role Status Dates Dr. Rayshawn Cortes MD Primary Care Provider Active Miley Palacios Attending Provider Active Team Status: Inactive Member Role Status Dates Dr. Rayshawn Cortes MD Primary Care Provider Active Dr. Blayne Hayes MD Attending Provider, Referring Provider Active Team Status: Inactive Member Role Status Dates Dr. Rayshawn Cortes MD Primary Care Provider Active Dr. Blayne Hayes MD Attending Provider Active Team Status: Active Member Role Status Dates Dr. Rayshawn Cortes MD Primary Care Provider Active Dr. Renuka Soliman MD Attending Provider Activ e Team Status: Active Member Role Status Dates Dr. Rayshawn Cortes MD Primary Care Provider Active Dariana Jurado RN SANE, RN SANE-C Attending Provider Active Team Status: Inactive Member Role Status Dates Dr. Rayshawn Cortes MD Primary Care Provider Active Dr. Leodan Whyte DO Emergency Provider Active Flight Steward Relationship Specialty Start Date End Date Rayshawn Cortes MD [address] [place] [address] PCP - General Family Medicine 06/24/22 Blayne Hayes F [address] [place] [address] Referring Cardiology 06/24/22 Flight Steward Relationship Specialty Start Date End Date Rayshawn Cortes MD [address] [place] [address] PCP - General Family Medicine 06/24/22 Blayne Hayes F [address] [place] [address] Referring Cardiology 06/24/22 Team Status: Inactive Member Role Status Dates Dr. Rayshawn Cortes MD Primary Care Provider Active Dariana Jurado NP, RN SANE-C Attending Provider Active Flight Steward Relationship Specialty Start Date End Date Rayshawn Cortes MD [address] [place] [address] PCP - General Family Medicine 06/24/22 Blayne Hayes F [address] [place] [address] Referring Cardiology 06/24/22 Team Status: Inactive Member Role Status Dates Dr. Rayshawn Cortes MD Primary Care Provider Active Dr. Leodan Whyte DO Attending Provider, Emergency Provide r Active Team Status: Active Member Role Status Dates Dr. Rayshawn Cortes MD Primary Care Provider Active Dr. Tania Hutchison MD Attending Provider, Referring Pr ovider Active Team Status: Inactive Member Role Status Dates Dr. Rayshawn Cortes MD Primary Care Provider Active Dr. Tania Hutchison MD Attending Provider, Referring Pr ovider Active Team Status: Active Member Role Status Dates Dr. Rayshawn Cortes MD Primary Care Provider Active Archie Chavarria RN SANE, RN SANE-C Attending Provider Active Team Status: Inactive Member Role Status Dates Dr. Rayshawn Cortes MD Primary Care Provider Active Archie Chavarria RN SANE, RN SANE-C Attending Provider Active Team Status: Active Member Role Status Dates Dr. Rayshawn Cortes MD Primary Care Provider Active Dr. Blayne Hayes MD Attending Provider, Referring Provider Active Team Status: Inactive Member Role Status Dates Dr. Rayshawn Cortes MD Primary Care Provider Active Archie Chavarria RN SANE, RN SANE-C Attending Provider, Referring Pro vider Active Team Status: Inactive Member Role Status Dates Dr. Rayshawn Cortes MD Primary Care Provider Active Dr. Tania Hutchison MD Attending Provider, Referring Pr ovider Active Dr. Blayne Hayes MD Active Team Status: Inactive Member Role Status Dates Dr. Rayshawn Cortes MD Primary Care Provider, Referring Pr ovider Active Tonya Hong RN SANE, RN SANE-C Attending Provider Active Team Status: Inactive Member Role Status Dates Dr. Rayshawn Cortes MD Primary Care Provider Active Tonya Hong RN SANE, RN SANE-C Attending Provider, Referrin g Provider Active Team Status: Inactive Member Role Status Dates Dr. Rayshawn Cortes MD Primary Care Provider Active Tonya Hong RN SANE, RN SANE-C Attending Provider Active Team Status: Inactive Member Role Status Dates Dr. Rayshawn Cortes MD Primary Care Provider, Referring Pr ovider Active Beverly Rider NP-C Attending Provider Active Team Status: Active Member Role Status Dates Dr. Rayshawn Cortes MD Primary Care Provider Active Dr. Con Baker MD Attending Provider Active Team Status: Active Member Role Status Dates Dr. Rayshawn Cortes MD Primary Care Provider Active Team Status: Inactive Member Role Status Dates Dr. Rayshawn Cortes MD Primary Care Provider Active Start: September 13, 2024 End: September 13, 2024 Archie Chavarria RN SANE, RN SANE-C Attending Provider Active S tart: September 13, 2024 End: September 13, 2024 Archie Chavarria RN SANE RN SANE-C Referring Provider Active S tart: September 13, 2024 End: September 13, 2024 Team Status: Inactive Member Role Status Dates Dr. Rayshawn Cortes MD Primary Care Provider Active Start: October 18, 2024 End: October 18, 2024 Dr. Rayshawn Cortes MD Referring Provider Active Sta rt: October 18, 2024 End: October 18, 2024 MOE Robles Attending Provider Active Start: October 18, 2024 End: October 18, 2024 Team Status: Inactive Member Role Status Dates Dr. Rayshawn Cortes MD Primary Care Provider Active Start: October 18, 2024 End: October 18, 2024 Dr. Con Baker MD Attending Provider Active S tart: October 18, 2024 End: October 18, 2024 Team Status: Inactive Member Role Status Dates Dr. Rayshawn Cortes MD Primary Care Provider Active Start: November 29, 2024 End: November 29, 2024 Dr. Rayshawn Cortes MD Referring Provider Active Sta rt: November 29, 2024 End: November 29, 2024 DANIELLE RoblesC Attending Provider Active Start: November 29, 2024 End: November 29, 2024 Team Status: Inactive Member Role Status Dates Dr. Rayshawn Cortes MD Primary Care Provider Active Start: November 29, 2024 End: November 29, 2024 Dr. Con Baker MD Attending Provider Active S tart: November 29, 2024 End: November 29, 2024 Team Status: Inactive Member Role Status Dates Dr. Rayshawn Cortes MD Primary Care Provider Active Start: December 31, 2024 End: December 31, 2024 Dr. Rayshawn Cortes MD Referring Provider Active Sta rt: December 31, 2024 End: December 31, 2024 Dr. Yuliana Nina DC Attending Provider Active S tart: December 31, 2024 End: December 31, 2024 Team Status: Inactive Member Role Status Dates Dr. Rayshawn Cortes MD Primary Care Provider Active Start: January 07, 2025 End: January 07, 2025 Dr. Rayshawn Cortes MD Referring Provider Active Sta rt: January 07, 2025 End: January 07, 2025 Dr. Yuliana Nina DC Attending Provider Active S tart: January 07, 2025 End: January 07, 2025 Team Status: Active Member Role/Relationship Status Dates Dr. Rayshawn Cortes MD Primary Care Provider Active Team Status: Inactive Member Role/Relationship Status Dates Dr. Rayshawn Cortes MD Primary Care Provider Active Start: October 18, 2024 End: October 18, 2024 Dr. Rayshawn Cortes MD Referring Provider Active Sta rt: October 18, 2024 End: October 18, 2024 MOE Robles Attending Provider Active Start: October 18, 2024 End: October 18, 2024 Team Status: Inactive Member Role/Relationship Status Dates Dr. Rayshawn Cortes MD Primary Care Provider Active Start: October 18, 2024 End: October 18, 2024 Dr. Con Baker MD Attending Provider Active S tart: October 18, 2024 End: October 18, 2024 Team Status: Inactive Member Role/Relationship Status Dates Dr. Rayshawn Cortes MD Primary Care Provider Active Start: November 29, 2024 End: November 29, 2024 Dr. Rayshawn Cortes MD Referring Provider Active Sta rt: November 29, 2024 End: November 29, 2024 MOE Robles Attending Provider Active Start: November 29, 2024 End: November 29, 2024 Team Status: Inactive Member Role/Relationship Status Dates Dr. Rayshawn Cortes MD Primary Care Provider Active Start: November 29, 2024 End: November 29, 2024 Dr. Con Baker MD Attending Provider Active S tart: November 29, 2024 End: November 29, 2024 Team Status: Inactive Member Role/Relationship Status Dates Dr. Rayshawn Cortes MD Primary Care Provider Active Start: December 31, 2024 End: December 31, 2024 Dr. Rayshawn Cortes MD Referring Provider Active Sta rt: December 31, 2024 End: December 31, 2024 Dr. Yuliana Nina DC Attending Provider Active S tart: December 31, 2024 End: December 31, 2024 Team Status: Inactive Member Role/Relationship Status Dates Dr. Rayshawn Cortes MD Primary Care Provider Active Start: January 07, 2025 End: January 07, 2025 Dr. Rayshawn Cortes MD Referring Provider Active Sta rt: January 07, 2025 End: January 07, 2025 Dr. Yuliana Nina DC Attending Provider Active S tart: January 07, 2025 End: January 07, 2025 Team Status: Inactive Member Role/Relationship Status Dates Dr. Rayshawn Cortes MD Primary Care Provider Active Start: January 30, 2025 End: January 30, 2025 Dr. Rayshawn Cortes MD Referring Provider Active Sta rt: January 30, 2025 End: January 30, 2025 Dr. Yuliana Nina DC Attending Provider Active S tart: January 30, 2025 End: January 30, 2025 FOR RECORDS PERTAINING TO PATIENTS WHO ARE OR HAVE BEEN ENROLLED IN A CHEMICAL DEPENDENCY/SUBSTANCEABUSE PROGRAM, SOME INFORMATION MAY BE OMITTED. This clinical summary was aggregated from multiple sources. Caution should be exercised in using it in the provision of clinical care. This summary normalizes information from multiple sources, and as a consequence, information in this document may materially change the coding, format and clinical context of patient data. In addition, data may be omitted in some cases. CLINICAL DECISIONS SHOULD BE BASED ON THE PRIMARY CLINICAL RECORDS. [employer] provides no warranty or guarantee of the accuracy or completeness of information in this document.
--- NOTE | 2025-02-01 07:36 | MRI_ITS ---
PROCEDURE: SPINE CERVICAL (ROUTINE) 02/01/2025 REASON FOR EXAM: WORSENING CERVICAL PAIN WITH R SIDED RADICULOPATHY TECHNIQUE: SPINE CERVICAL (ROUTINE) Multiplanar and multisequence images were obtained without IV contrast administration. COMPARISON: October 18, 2024 FINDINGS: Vertebral body heights are within normal limits. Negative for fracture or marrow replacement. Straightening of the normal lordosis. No significant scoliosis. Spinal cord is of normal caliber, contour and signal intensity. No paraspinal mass. C2-3: Minimal posterior disc bulge. Mild spinal stenosis. No significant foraminal narrowing. C3-4: Posterior disc osteophyte complex. Bilateral uncovertebral arthrosis. Mild/moderate spinal stenosis. Moderate left foraminal narrowing. C4-5: Minimal posterior disc osteophyte complex. Mild bilateral uncovertebral arthrosis. Mild spinal stenosis. Mild bilateral foraminal narrowing. C5-6: Posterior disc osteophyte complex. Mild bilateral uncovertebral arthrosis. Mild spinal stenosis. Minimal left foraminal narrowing. C6-7: Posterior disc osteophyte complex. Mild bilateral uncovertebral arthrosis. Mild spinal stenosis. Minimal bilateral foraminal narrowing. C7-T1: No focal disc abnormality, spinal stenosis or foraminal narrowing. MRI/Spine Cervical (Routine) IMPRESSION: 1. Acquired mild to mild/moderate multilevel spinal stenosis, greatest at C3-4. 2. Acquired [id number] multilevel foraminal narrowing. See level by bonnie álvarez above. Reading Location: [facility]
== END | disposition home or self-care (01) ==
PROVIDERS: PCP Family Medicine; Referring Provider Nurse Practitioner Family; Visit Provider Nurse Practitioner Family
DX: M54.12 Radiculopathy, cervical region (principal)
CPT/HCPCS: 72141